=== PATIENT | female | born 1930 | race Caucasian/White ===

== ENCOUNTER 2017-05-18 21:47 | Inpatient (IN) | payer OTHER ==
[~2017-05-18] VITALS: Ht 162.6 cm; Wt 127.9 kg
[~2017-05-18 21:47] MED LIST: AMLODIPINE BESYL5 M1 PO; ASPIRIN EC325 MG PO; CALTRATE 600 +1 EACH PO; CAPTOPRIL100 MG PO; CARBIDOPA-LEVO1 EAC9 PO; CARBIDOPA/LEVOD1 TE1 PO; CIPRO 500MG TA500 MG PO; DILTIAZEM 24HR360 M1 PO; DOCUSATE SODIU100 MG PO; DULOXETINE HCL60 MG PO; ELIQUIS2.5 M1 PO; FERROUS SULFAT325 M2 PO; FOLIC ACID1 M1 PO; FUROSEMIDE20 M1 PO; IRBESARTAN300 M1 PO; LIPITOR80 M1 PO; LORAZEPAM1 M1 PO; LYRICA75 M1 PO; MAGNESIUM OXID400 M1 PO; METFORMIN HCL1000 M1 PO; METOPROLOL TAR100 M1 PO; MIRALAX17 GM PO; MIRAPEX 0.25M0.25 MG PO; MIRTAZAPINE15 M2 PO; OMEPRAZOLE20 M2 PO; PREDNISONE50 M1 PO; PROAIR HFA0.09 MG/Ac INH; ROBITUSSIN W/CO10 ML PO; SENOKOT8.6 MG PO; TYLENOL TAB 32325 MG PO; VITAMIN B-121000 MC3 PO
--- NOTE | 2017-05-18 21:52 | ED DYSPNEA/ASTHMA COMPLAINT ---
History of Present Illness General Chief Complaint: Dyspnea (COPD, CHF, Other) Stated Complaint: BIBA FOR LOW O2 SATS, DIFF BREATHING Source: patient Exam Limitations: no limitations Vital Signs & Intake/Output Vital Signs & Intake/Output Vital Signs Date Time Temp Pulse Resp B/P B/P Pulse O2 O2 Flow FiO2 Mean Ox Delivery Rate 05/19 0054 98.8 110 20 126/68 92 Nasal 3.0L Cannula 05/18 2149 99 22 161/81 91 Nasal 3.0L Cannula ED Intake and Output 05/19 0000 05/18 1200 Intake Total 0 Output Total Balance 0 Intake, Oral 0 Patient 200 lb Weight Weight Estimated Measurement Method Allergies Coded Allergies: codeine (SOB 07/09/15) Reconcile Medications Apixaban (Eliquis) 2.5 MG TABLET 2.5 MG PO BID Atrial Fibrilliation Atorvastatin Calcium (Lipitor) 80 MG TABLET 1 TAB PO DAILY CHOLESTEROL ( Reported) Calcium Carbonate/Vitamin D3 (Caltrate 600 + D Tablet) 600 MG-800 TABLET 1 TAB PO DAILY SUPPLEMENT (Reported) Carbidopa/Levodopa (Carbidopa-Levo ER 50-200 Tab) 50 MG-200 MG TABLET.ER 1 TAB PO DAILY RESTLESS LEGS Cyanocobalamin (Vitamin B-12) 1,000 MCG TABLET 1 TAB PO DAILY VITAMIN SUPPORT (Reported) diltiaZEM HCl (Diltiazem 24HR Cd) 360 MG CAP.ER.24H 1 TAB PO DAILY Heart rate Duloxetine HCl 60 MG CAPSULE.DR 1 CAP PO DAILY PAIN (Reported) Ferrous Sulfate 325 MG (65 MG IRON) TABLET.DR 325 MG PO BID supplement Folic Acid 1 MG TABLET 1 MG PO DAILY supplement Furosemide 20 MG TABLET 1 TAB PO DAILY WATER RETENTION (Reported) Lorazepam 1 MG TABLET 2 TAB PO QPM ANXIETY (Reported) Lorazepam 1 MG TABLET 1 TAB PO DAILY ANXIETY (Reported) Magnesium Oxide 400 MG TABLET 1 TAB PO DAILY SUPPLEMENT (Reported) Metformin HCl 1,000 MG TABLET 1 TAB PO DAILY DIABETES (Reported) Metoprolol Tartrate 100 MG TABLET 2 TAB PO BID HEART Mirtazapine 15 MG TABLET 1 TAB PO QPM SLEEP (Reported) Omeprazole 20 MG CAPSULE.DR 40 MG PO DAILY AC STOMACH HEALTH Prednisone 50 MG TABLET 1 TAB PO DAILY Thrombocytopenia Pregabalin (Lyrica) 75 MG CAPSULE 150 MG PO AT BEDTIME RESTLESS LEGS Triage Nurses Notes Reviewed? yes Onset: Gradual Duration: day(s): Timing: recent history Severity: moderate Activities at Onset: none Prior Episodes/Possible Cause: occasional episodes Associated Symptoms: cough, DYSPNEA, HYPOXIA HPI: 86 yo woman with diabetes, chf, chronic lower extremity edema, from ecf, presents with elevated wbc count of 24,000 and hypoxia to 85% on room air. She notes a cough, "but the phlegm is really deep." She notes no chest pain, abdominal pain, lower extremity pain. She is otherwise well. Past History Travel History Traveled to [place] past 21 day No Medical History Any Pertinent Medical History? see below for history Neurological: restless leg syndrome, DIABETIC NEUROPATHY EENT: NONE Cardiovascular: hypertension, hyperlipidemia, myocardial infarction, CARDIAC STENTS Respiratory: NONE Gastrointestinal: constipation Hepatic: NONE Renal: NONE Musculoskeletal: falls, BILAT SHOULDER REPAIR LT KNEE REPAIR Psychiatric: anxiety Endocrine: diabetes Blood Disorders: thrombocytopenia Cancer(s): NONE GRAIN SAMPLER/Reproductive: NONE Other Medical Hx: restless leg syndrome History of MRSA: Yes History of VRE: No History of CDIFF: No Surgical History Surgical History: L KNEE BOTH SHOULDERS R GREAT TOE AMP Psychosocial History Who do you live with Patient/Self Services at Home None What is your primary language [place] Family History Family History, If Any: Relation not specified for: *No pertinent family history Hx Contributory? No Review of Systems Review of Systems Constitutional: Reports: no symptoms. EENTM: Reports: no symptoms. Respiratory: Reports: no symptoms. Cardiovascular: Reports: no symptoms. GI: Reports: no symptoms. Genitourinary: Reports: no symptoms. Musculoskeletal: Reports: no symptoms. Skin: Reports: no symptoms. Neurological/Psychological: Reports: no symptoms. Hematologic/Endocrine: Reports: no symptoms. Immunologic/Allergic: Reports: no symptoms. All Other Systems: Reviewed and Negative Physical Exam Physical Exam General Appearance: well developed/nourished, mild distress Head: atraumatic, normal appearance Eyes: Bilateral: normal appearance. Ears, Nose, Throat: dry mucosa Neck: normal inspection, supple, full range of motion Respiratory: dimished breath sounds at baseline Cardiovascular: regular rate/rhythm Gastrointestinal: normal bowel sounds, soft, non-tender, no organomegaly Extremities: chronic venous stasis changes, left leg with skin breakdown, ulcerations at left heel. Also with superimposed erythema. Very warm to touch to the knee. right ankle hot to touch, erythmatous, tender to mid calf, w/ skin breakdown and ulcerations on right ankle. Neurologic/Psych: no motor/sensory deficits, awake, alert, oriented x 3 Skin: intact, normal color, warm/dry Core Measures ACS in differential dx? No CVA/TIA Diagnosis No Sepsis Present: No Sepsis Focused Exam Completed? No Progress Differential Diagnosis: asthma, bronchitis, CHF, COPD, pneumonia Plan of Care: Orders Procedure Date/time Status Nothing by Mouth 05/19 B Active Patient Data 05/19 0140 Active Saline Lock 05/19 36 Active Misc Message 05/19 36 Active ED Holding Orders 05/19 36 Active Admit to inpatient 05/19 36 Active Vital Signs 05/19 36 Active Code Status 05/19 36 Active LACTIC ACID 05/18 2202 Complete PARTIAL THROMBOPLASTIN TIME 05/18 2158 Complete PROTHROMBIN TIME 05/18 2158 Complete D-DIMER 05/18 2158 Complete BLOOD CULTURE 05/18 2154 Active ARTERIAL BLOOD GAS (GEN) 05/18 2150 Complete BLOOD CULTURE 05/18 2150 Active TROPONIN LEVEL 05/18 2150 Complete LIPASE 05/18 2150 Complete HEPATIC FUNCTION PANEL 05/18 2150 Complete CBC WITHOUT DIFFERENTIAL 05/18 2150 Complete BASIC METABOLIC PANEL 05/18 2150 Complete AMYLASE 05/18 2150 Complete EKG 05/18 2150 Active Laboratory Tests 05/19/17 0103: Lactic Acid Cancelled 05/18/17 2250: Anion Gap 9, Estimated GFR 39 L, BUN/Creatinine Ratio 42.3 H, Glucose 143 H, Calcium 8.3 L, Total Bilirubin 0.8, Direct Bilirubin 0.3, AST 13 L, ALT 47, Alkaline Phosphatase 48, Troponin I 0.10, Total Protein 4.8 L, Albumin 2.6 L, Amylase < 30 L, Lipase 40, PT 12.1, INR 1.15, APTT 25, D-Dimer High Sensitivty 303 H 05/18/17 2219: Lactic Acid 1.2, CBC w Diff NO MAN DIFF REQ, RBC 4.46, MCV 93.6, MCH 30.0, RDW 21.3 H, MPV 8.8, Gran % 94.6 H, Lymphocytes % 2.2 L, Monocytes % 3.0, Eosinophils % 0.1, Basophils % 0.1, Absolute Granulocytes 10.4 H, Absolute Lymphocytes 0.2 L, Absolute Monocytes 0.3, Absolute Eosinophils 0, Absolute Basophils 0, PUBS MCHC 32.0 L 05/18/172209: pH 7.45, pCO2 37, pO2 54 L, HCO3 25, ABG O2 Sat (Measured) 86.0 L, P-50 (Temp Corrected) N, Carboxyhemoglobin 1.4 L, O2 Concentration % R/A, Temperature 99.4 , Phlebotomy Draw Site LEFT RADIAL Microbiology 05/18 2302 BLOOD: Blood Culture - RECD 05/18 2249 BLOOD: Blood Culture - RECD Diagnostic Imaging: Viewed by Me: Radiology Read. Discussed w/RAD: Radiology Read. CXR Impression: PATIENT: SOLEDAD WILLSON PRESENT AGE: 86 PATIENT ACCOUNT NO: [id number] : 31 LOCATION: [facility] ORDERING PHYSICIAN: Jackson Tong MD SERVICE DATE: 05/18/17 EXAM TYPE: RAD - XRY- PORTABLE CHEST XRAY EXAMINATION: XR PORTABLE CHEST CLINICAL INFORMATION: Dyspnea COMPARISON: 04/11/2017 TECHNIQUE: Portable frontal view of the chest was obtained. FINDINGS: Cardiac leads overlie the chest. Lung volumes are low. Small to moderate left-sided pleural effusion with associated airspace opacity. Likely a small right pleural effusion. Central vascular prominence. No pneumothorax. The cardiomediastinal silhouette is unchanged. IMPRESSION: Lung volumes are low. Small moderate left pleural effusion with small right pleural effusion. Associated airspace opacity could be associated with fluid overload as there is central vascular prominence. Pneumonia difficult to exclude. DICTATED BY: Randolph Kaye MD DATE/TIME DICTATED:05/18/172330 PHYSICIAN SURGEON: SHARIF DATE/TIME TRANSCRIBED:05/18/172330 CONFIDENTIAL, DO NOT COPY WITHOUT APPROPRIATE AUTHORIZATION. <Electronically signed in Other Vendor System> SIGNED BY: Randolph Kaye MD 05/18/17 7909 Initial ED EKG: afib... computer reads "leads reversed"... per tech, leads are appropriate... ekg most consistent with afib. ... no significant change from prior Departure Departure Disposition: STILL A PATIENT Condition: Stable Clinical Impression Primary Impression: Pneumonia Secondary Impressions: Cellulitis, Sepsis, Vasculopathy Referrals: July Crisostomo MD (PCP/Family) Departure Forms: Customer Survey General Discharge Information Comments 05/18/17, 23:00... discussed with vascular to discuss concern for femoral artery clot from 05/15/17 ... given that her leg is warm to touch, this is likely NOT an acute clot and does not require acute intervention. he will see patient in the AM. Critical Care Note Critical Care Note Critical Care Time: 30-74 min
[2017-05-18 22:30] LABS: ABSOLUTE BASOPHIL COUNT 0 /CUMM (0.0-0.2); ABSOLUTE EOSINOPHIL COUNT 0 /CUMM (0.0-0.7); ABSOLUTE GRANULOCYTE CT 10.4 /CUMM (1.4-6.5); ABSOLUTE LYMPH COUNT 0.2 /CUMM (1.2-3.4); ABSOLUTE MONOCYTE COUNT 0.3 /CUMM (0.10-0.60); BASOPHIL % 0.1 % (0.0-2.0); EOSINOPHIL % 0.1 % (0-5); GRANULOCYTE % 94.6 % (42.2-75.2); HEMATOCRIT 41.8 % (37-47); MEAN CORPUSCULAR VOLUME 93.6 FL (81.0-99.0); MEAN PLATELET VOLUME 8.8 FL (7.4-10.4); RBC DISTRIBUTION WIDTH 21.3 % (11.5-14.5); RED BLOOD CELL CT 4.46 /CUMM (4.20-5.40)
[2017-05-18 23:10] LABS: PLATELET COUNT 44 /CUMM (130-400)
--- NOTE | 2017-05-18 23:35 | RADIOLOGY REPORT ---
EXAMINATION: XR PORTABLE CHEST CLINICAL INFORMATION: Dyspnea COMPARISON: 04/11/2017 TECHNIQUE: Portable frontal view of the chest was obtained. FINDINGS: Cardiac leads overlie the chest. Lung volumes are low. Small to moderate left-sided pleural effusion with associated airspace opacity. Likely a small right pleural effusion. Central vascular prominence. No pneumothorax. The cardiomediastinal silhouette is unchanged. IMPRESSION: Lung volumes are low. Small moderate left pleural effusion with small right pleural effusion. Associated airspace opacity could be associated with fluid overload as there is central vascular prominence. Pneumonia difficult to exclude.
[2017-05-18 23:53] LABS: PT 12.1 SEC (9.4-12.5); PTT 25 SEC (25-37)
--- NOTE | 2017-05-19 01:13 | History & Physical ---
Akin RAMOS,[facility] 05/19/17 0112: General Information and HPI MD Statement: I have seen and personally examined SOLEDAD WILLSON and documented this H&P. The patient is a 86 year old F who presented with a patient stated chief complaint of [low O2 sats, leukocytosis]. Source of Information: patient, [facility] History of Present Illness: Patient is 86-year-old woman with past medical history of hypertension, hyperlipidemia, ID s/p PCI with stent, diabetes mellitus, and restless leg syndrome, history of atrial fibrillation not on anticoagulation due to severe thrombocytopenia was sent in from [facility] care facility for hypoxia, leukocytosis and productive cough. Patient states she had no cough with sputum production, clear, that started 4 days ago. He denies any shortness of breath, chest pain, fever/chills, orthopnea, palpitations, sick contacts, recent travel, new onset rash , nausea, vomiting, abdominal pain or any urinary symptoms. Her only other complaint is right shoulder pain after she slipped from her couch last night. Patient was oriented 2 at the time of history taking, for a CF facility was called to confirm the history. Mentioned recent onset cough with low O2 sats with no improvement after one neb treatment. Labs were done this morning which showed white blood cell count of 24,300 so the patient was sent in for further evaluation. Allergies/Medications Allergies: Coded Allergies: codeine (SOB 07/09/15) Home Med list Apixaban (Eliquis) 2.5 MG TABLET 2.5 MG PO BID Atrial Fibrilliation Atorvastatin Calcium (Lipitor) 80 MG TABLET 1 TAB PO DAILY CHOLESTEROL ( Reported) Calcium Carbonate/Vitamin D3 (Caltrate 600 + D Tablet) 600 MG-800 TABLET 1 TAB PO DAILY SUPPLEMENT (Reported) Carbidopa/Levodopa (Carbidopa-Levo ER 50-200 Tab) 50 MG-200 MG TABLET.ER 1 TAB PO DAILY RESTLESS LEGS Cyanocobalamin (Vitamin B-12) 1,000 MCG TABLET 1 TAB PO DAILY VITAMIN SUPPORT (Reported) diltiaZEM HCl (Diltiazem 24HR Cd) 360 MG CAP.ER.24H 1 TAB PO DAILY Heart rate Duloxetine HCl 60 MG CAPSULE.DR 1 CAP PO DAILY PAIN (Reported) Ferrous Sulfate 325 MG (65 MG IRON) TABLET.DR 325 MG PO BID supplement Folic Acid 1 MG TABLET 1 MG PO DAILY supplement Furosemide 20 MG TABLET 1 TAB PO DAILY WATER RETENTION (Reported) Lorazepam 1 MG TABLET 2 TAB PO QPM ANXIETY (Reported) Lorazepam 1 MG TABLET 1 TAB PO DAILY ANXIETY (Reported) Magnesium Oxide 400 MG TABLET 1 TAB PO DAILY SUPPLEMENT (Reported) Metformin HCl 1,000 MG TABLET 1 TAB PO DAILY DIABETES (Reported) Metoprolol Tartrate 100 MG TABLET 2 TAB PO BID HEART Mirtazapine 15 MG TABLET 1 TAB PO QPM SLEEP (Reported) Omeprazole 20 MG CAPSULE.DR 40 MG PO DAILY AC STOMACH HEALTH Prednisone 50 MG TABLET 1 TAB PO DAILY Thrombocytopenia Pregabalin (Lyrica) 75 MG CAPSULE 150 MG PO AT BEDTIME RESTLESS LEGS Past History Travel History Traveled to [place] past 21 day No Medical History Neurological: restless leg syndrome, DIABETIC NEUROPATHY EENT: NONE Cardiovascular: hypertension, hyperlipidemia, myocardial infarction, CARDIAC STENTS Respiratory: NONE Gastrointestinal: constipation Hepatic: NONE Renal: NONE Musculoskeletal: falls, BILAT SHOULDER REPAIR LT KNEE REPAIR Psychiatric: anxiety Endocrine: diabetes Blood Disorders: thrombocytopenia Cancer(s): NONE RESEARCH AND EVALUATION ANALYST/Reproductive: NONE Other Medical Hx: restless leg syndrome History of MRSA: Yes History of VRE: No History of CDIFF: No Surgical History Surgical History: L KNEE BOTH SHOULDERS R GREAT TOE AMP, BILATERAL SHOULDER SURGERY Past Family/Social History Family History Relations & Conditions if any Relation not specified for: *No pertinent family history Psychosocial History Where do you live? Extended Care Facility Services at Home: None Smoking Status: Former Smoker ETOH Use: occasional use Illicit Drug Use: denies illicit drug use Functional Ability ADLs Independent: dressing, eating, toileting, bathing. Ambulation: independent IADLs Independent: shopping, housework, finances, food prep, telephone, transportation , medication admin. Review of Systems Review of Systems Constitutional: Reports: no symptoms. Cardiovascular: Denies: chest pain, orthopena, palpitations. Respiratory: Reports: cough, sputum production. Exam & Diagnostic Data Last 24 Hrs of Vital Signs/I&O Vital Signs Date Time Temp Pulse Resp B/P B/P Pulse O2 O2 Flow FiO2 Mean Ox Delivery Rate 05/19 0707 98.0 120 22 115/78 05/19 0523 98.0 112 18 130/90 96 Room Air 2.5L 05/19 0256 97.2 112 18 126/68 93 Nasal 3.0L Cannula 05/19 0054 98.8 110 20 126/68 92 Nasal 3.0L Cannula 05/18 2149 99 22 161/81 91 Nasal 3.0L Cannula Intake & Output 05/19 0800 05/19 0000 05/18 1600 Intake Total 0 Output Total Balance 0 Intake, Oral 0 Patient 200 lb Weight Weight Estimated Measurement Method Physical Exam General Appearance Alert, Cooperative, No Acute Distress, ORIENTED TO PLACE AND PERSON Cardiovascular Normal S1, Normal S2, IRREGULAR Lungs Clear to Auscultation Abdomen Normal Bowel Sounds, Soft, No Tenderness Extremities No Clubbing, Normal Pulses, Chronic LE Venous Stasis changes with superimposed erythema, dry skin with breakdown without any bleeding or pulurent discharge, +2 edema Last 24 Hrs of Labs/Silvano: Laboratory Tests 05/19/17 0600: Troponin I Cancelled 05/19/17 0554: Lactic Acid Cancelled 05/19/17 0554: Estimated GFR 0 L 05/19/17 0554: Anion Gap 10, Estimated GFR Pending, BUN/Creatinine Ratio 43.1 H, Troponin I Pending, Gys-M-Pcrxlztaoql Pept Pending, CBC w Diff MAN DIFF ORDERED, RBC 3.94 L, MCV 93.1, MCH 29.7, RDW 21.6 H, MPV 10.1, Gran % 91.0 H, Lymphocytes % 3.5 L, Monocytes % 5.3, Eosinophils % 0, Basophils % 0.2, Absolute Granulocytes 12.4 H, Segmented Neutrophils 86 H, Absolute Lymphocytes 0.5 L, Lymphocytes 3 L, Monocytes 11 H, Absolute Monocytes 0.7 H, Absolute Eosinophils 0, Absolute Basophils 0, Platelet Estimate DECREASED, Polychromasia 1+, Hypochromic- Microcytic 1+, Poikilocytosis 1+, Ovalocytes 1+, PUBS MCHC 32.0 L, Fld Total RBCs Counted 100 05/19/17 0526: Urinalysis LIGHT H, Urine Color YEL, Urine Clarity CLEAR, Urine pH 6.0, Ur Specific Dixie 1.020, Urine Protein 30 H, Urine Ketones NEG, Urine Nitrite NEG, Urine Bilirubin NEG, Urine Urobilinogen 0.2, Ur Leukocyte Esterase NEG, Ur Microscopic SEDIMENT EXAMINED, Urine RBC 25-50 H, Urine WBC 1-3 H, Ur Epithelial Cells FEW, Hyaline Casts 3-5 H, Urine Mucus FEW, Urine Hemoglobin MOD H, Urine Glucose NEG 05/19/17 0254: Lactic Acid Cancelled 05/19/17 0103: Lactic Acid Cancelled 05/18/17 2250: Anion Gap 9, Estimated GFR 39 L, BUN/Creatinine Ratio 42.3 H, Glucose 143 H, Calcium 8.3 L, Magnesium 2.2, Total Bilirubin 0.8, Direct Bilirubin 0.3, AST 13 L, ALT 47, Alkaline Phosphatase 48, Troponin I 0.10, Zqu-J-Bavwubsvive Pept 9830 H, Total Protein 4.8 L, Albumin 2.6 L, Amylase < 30 L, Lipase 40, PT 12.1, INR 1.15, APTT 25, D-Dimer High Sensitivty 303 H 05/18/17 2219: Lactic Acid 1.2, CBC w Diff NO MAN DIFF REQ, RBC 4.46, MCV 93.6, MCH 30.0, RDW 21.3 H, MPV 8.8, Gran % 94.6 H, Lymphocytes % 2.2 L, Monocytes % 3.0, Eosinophils % 0.1, Basophils % 0.1, Absolute Granulocytes 10.4 H, Absolute Lymphocytes 0.2 L, Absolute Monocytes 0.3, Absolute Eosinophils 0, Absolute Basophils 0, PUBS MCHC 32.0 L 05/18/17 221: pH 7.45, pCO2 37, pO2 54 L, HCO3 25, ABG O2 Sat (Measured) 86.0 L, P-50 (Temp Corrected) N, Carboxyhemoglobin 1.4 L, O2 Concentration % R/A, Temperature 99.4 , Phlebotomy Draw Site LEFT RADIAL Microbiology 05/19 525 URINE ROUT: Urine Culture - RECD 05/18 2302 BLOOD: Blood Culture - RECD 05/18 2249 BLOOD: Blood Culture - RECD Diagnostic Data CXR Results Small moderate left pleural effusion with small right pleural effusion. Associated airspace opacity could be associated with fluid overload as there is central vascular prominence. Pneumonia difficult to exclude. Assessment/Plan Assessment: Patient is 86-year-old woman with past medical history of hypertension, hyperlipidemia, ID s/p PCI with stent, diabetes mellitus, and restless leg syndrome, history of atrial fibrillation not on anticoagulation due to severe thrombocytopenia was sent in from extended care facility for hypoxia, leukocytosis and productive cough. A/P; 1. Acute hypoxic respiratory failure likely secondary to CHF and possible pneumonia. (chest x-ray showing moderate left pleural effusion with small white pasty which could be fluid overload or pneumonia). History of systolic CHF with ejection fraction of 45-50% on recent echo. - We will admit the patient to telemetry floor - We'll start the patient on IV Lasix. (Stopped recently for unknown reason) - Cardiology consult. - Initial troponins negative, Repeat troponins and EKG to rule out ACS - Start the patient on IV vancomycin and ceftaz for healthcare associated pneumonia. - Supplemental oxygen as needed - Sputum culture - Follow up blood cultures - Consider CTA chest if patient remains hypoxemic. Patient is high risk for PE given her tachypnea, tachycardia, low activity level and has been off anticoagulation(because of thrombocytopenia). 2. Left lower leg cellulitis with chronic wounds - IV vancomycin and ceftaz - Wound consult - Vascular surgery consult - Keep the legs elevated 3. Thrombocytopenia - Platelet count is 44(baseline) - Continue to hold Eliquis - Avoid any antiplatelets - Hematology consult 4. History of atrial fibrillation; - Continue diltiazem and metoprolol. - Continue to hold Eliquis 5. Arterial Ultrasound finding of possible occlusion of the distal femoral artery(May); - Vascular surgery was called, patient does not need any surgical intervention at this time. 5. Other Chronic medical conditions; - Continue home medications. DVT prophylaxis; Alps only(no pharmacological DVT prophylaxis because of thrombocytopenia) Patient is full code As Ranked By This Provider Problem List: 1. Cellulitis 2. Pneumonia 3. CHF (congestive heart failure) Core Measures/Misc (01/19) Acute Coronary Syndrome ACS Diagnosis: No Congestive Heart Failure Congestive Heart Failure Diagnosis Yes Last Known EF % 45 No ADAM/ARB d/t Medical Contraindication (hyperkalemia) Cerebrovascular Accident CVA/TIA Diagnosis: No VTE (View Protocol) VTE Risk Factors Age>40 No Mechanical VTE Prophylaxis d/t N/A MechProphylax Ordered No VTE Pharm Prophylaxis d/t Platelets below ref range Sepsis (View protocol) Sepsis Present: Adelina Handy 05/19/17 0608: Resident Review Statement Resident Statement: examined this patient, discussed with property management intern Other Findings: Patient is 86-year-old woman with past medical history of hypertension, hyperlipidemia, ID s/p PCI with stent, diabetes mellitus, and restless leg syndrome, history of atrial fibrillation not on anticoagulation due to severe thrombocytopenia was sent in from extended care facility with the concerns of hypoxia and productive cough. Patient was oriented 1 at the time of evaluation for most of the history was obtained from the [facility] staff .As per staff patient has been coughing for the last couple of days w/o any fever /chills.Yesterday she started having trouble breathing along with wheezing ,desaturated to 86% on room air. she was given nebulizer treatment along with IV Solu-Medrol at the facility but her sats didn' t improve and was sent in to the ER with the concerns of hypoxia. She recently had a lab work done that showed worsening creatinine and Lasix was stopped on 05/12/16. Since then she gained almost 3 pounds. No complaint of nausea vomiting diarrhea. No recent infections. In the ED patient was found to be in acute hypoxic ,was put on 3 L nasal cannula. Patient has a history of chronic lower extremity wounds, due to underlying peripheral vascular disease, recently getting worse, patient recently had a Doppler venous ultrasound done at a facility that ruled out any underlying DVT , also had an arterial Doppler ultrasound was done that showed incidental finding of right distal femoral artery occlusion. Patient was recently discharged from [facility] after being treated for atrial fibrillation and immune thrombocytopenia, elliquis was stopped. On examination: General Appearance:alert oriented 1, not in acute distress Skin: Grossly normal HEENT: PERRLA Neck: Supple, No JVD Cardiovascular: Regular Rate, Normal S1, Normal S2. Lungs: lungs clear to exam b/l. Abdominal exam : Denies abdominal tenderness without any rebound, positive bowel sounds. Neurological: Grossly intact. Extremities: Bilateral lower extremity swelling with redness with open weeping wounds more on the left leg as compared to the right. Pertinent labs on admission leukocytosis of 11, creatinine) baseline 1.3, lactic acid levels, ProBNP pending positive troponin negative Chest x-ray Small moderate left pleural effusion with small right pleural effusion. Associated airspace opacity could be associated with fluid overload as there is central vascular prominence. Pneumonia difficult to exclude. Problem list Acute hypoxic respiratory failure due to a likely CHF exacerbation along with pneumonia Worsening lower extremity swelling with redness(left more than right) History of atrial ablation not on any anticoagulation History of restless leg syndrome History of immune thrombocytopenia PLAN Acute hypoxic respiratory failure due to a likely CHF exacerbation along with pneumonia: * Admit the patient to telemetry floor. * We'll start her on IV Lasix 20 mg daily. * Continue IV ceftazidime and vancomycin for underlying health associated pneumonia. * Obtain cardiology consult. * Transient troponins and EKG. * Consider CT chest for further investigation. Patient is at high risk of PE as she is hypoxic a cardiac and now off elliquis, but CTA cannot be done at this time due to elevated creatinine. Also due to her severe thrombocytopenia she cannot get any anticoagulation. Worsening lower extremity swelling with redness(left more than right)-likely cellulitis along with incidental finding of right distal femoral artery occlusion * Continue broad-spectrum. * Patient has been evaluated by vascular surgery, recommended no acute surgical interventions for now. History of atrial fibrillation not on any anticoagulation * Continue Cardizem and metoprolol. History of restless leg syndrome * continue Lyrica,recently stopped Sinemet History of immune thrombocytopenia * Prednisone dose has been recently increased toto 150 Mg Daily Confirmed from the ECF staff. 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 Her lung exam revealed bilateral rhonchi with wheeze, she received albuterol nebs and was sent to ER. She had blood work done at facility that showed leukocytosis of 24.3 and Platelet of 24. Of note, patient has been off lasix due to BUN/creat abnormalities and had a 3 lb weight gain over past 2 days. She is also off the eliquis due to low platelets. Patient does not offer any complaints. She has chronic lower extremity wounds and skin changes of PVD which seem to have gotten worse. LE doppler done on May 13 was negative for DVT. Arterial doppler done on May 15 was concerning for a possible occlusion of distal femoral artery on right. Vitals: afebrile, HR 90-110's, BP 126/68, sats 92% on 3L. Chest bibasilar crackles+. LE: Bilateral LE edema L>R with open wounds, left leg more warm, erythematous than right, tenderness+. Peripheral pulses are well felt. Labs: WBC 11, Plt 44, K 5.4, BUN 55, creat 1.3 (baseline), trop neg, proBNP 9830 , ABG 7.45/37/54/25. CXR: low lung volumes, small moderate left pleural effusion with small right pleural effusion. Associated airspace opacity could be associated with fluid overload as there is central vascular prominence. Echo (2017): EF 45-50%, mild global hypokinesis, pulmonary hypertension. EKG: not done correctly, lead placement problem asked to repeat one. Assessment and plan: 1. Acute hypoxemic respiratory failure 2. Acute on chronic systolic CHF, bilateral pleural effusions 3. Healthcare associated pneumonia 4. Bilateral lower extremity swelling, multiple ulcers, PVD, chronic venous stasis, possible LLE cellulitis 5. CKD stage 3 6. 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 If patient remains afebrile, would consider narrowing antibiotics. - Obtain ID consult - Cannot rule out PE, unable to do CTA due to CKD and cannot heparinize due to ITP. Consider VQ scan - Vascular evaluated patient in ER finding on arterial doppler (possible occlusion of distal femoral A) not concerning for acute vascular intervention. Please note, patient had arterial doppler at [facility] (Apr 13) that was normal. - Continue prednisone if hypotensive give stress dose steroids - Wound consult xeroform deressing. - Hematology consult (as follow up for her ITP) - Continue lipitor, diltiazem, metoprolol, levemir, novolog, omeprazole, ativan, mirtazapine. DVT ppx Alps (may not be able to apply), no heparin due to low platelets. Full code.
--- NOTE | 2017-05-19 01:32 | Cons- Vascular Surgery ---
Amparo Barroso 05/19/17 0056: General Information and HPI Consulting Request Date of Consult: 05/19/17 Requested By: Dr. Bridgette Tong Reason for Consult: Asymptomatic incidental finding of R SFA occlusion Source of Information: old records Exam Limitations: poor historian History of Present Illness: Janet is an 86 year old female who presents to ER today with a chief complaint of hypoxia and difficulty breathing. Her O2 saturation upon arrival was 85%. Her PMH is significant for afib for which she takes eliquis 2.5 bid. Additionally her pmh includes DM, Restless Legs, GERD, anxiety and thrombocytopenia. She has had osteomyelitis and podiatric surgical procedures in the past with Dr. Darci Quinones. She underwent a bilateral arterial doppler to her lower extremities in april of 2017. The report is as follows: PATIENT: JANET WILLSON PRESENT AGE: 86 PATIENT ACCOUNT NO: [id number] : 31 LOCATION: [facility] ORDERING PHYSICIAN: Denisse Salmeron MD SERVICE DATE: 04/13/17 EXAM TYPE: US - US-BILAT LOW EXTR ARTERIAL DOP EXAMINATION: US LOWER EXTREMITY ARTERIAL DOPPLER, BILATERAL CLINICAL INFORMATION: Leg pain. Evaluate for peripheral vascular disease. COMPARISON: None TECHNIQUE: Doppler, color and grayscale evaluation of the arteries of the bilateral lower extremities. Exam is limited as the patient had trouble holding still. Exam was also performed portably. FINDINGS: Right: the right common femoral artery is patent. There is minimal calcified plaque. There is normal triphasic waveform and peak systolic velocity. The visualized right proximal profunda appears patent with a biphasic waveform. The right is patent. There is evidence of mild diffuse atherosclerotic disease with diminished peak systolic velocities in the superficial femoral artery ranging from 51, 73 and 83 cm/s in the proximal, mid and distal superficial femoral artery. The right popliteal artery is not optimally visualized. The right upper popliteal artery appears patent with normal peak systolic velocity of 101 cm/s and biphasic waveform. The right distal superficial femoral artery is not well visualized. The right peroneal and posterior tibial arteries are not visualized. The right anterior tibial artery is patent and demonstrates a biphasic waveform and normal peak systolic velocity. The right dorsalis pedis artery is patent. Left: The left common femoral artery is patent. This demonstrates normal peak systolic velocity and normal triphasic waveform. The left proximal profunda appears patent. Left proximal and mid superficial femoral artery are patent with normal peak systolic velocities and triphasic waveform. There is decreased peak systolic velocity in the left distal SFA measuring 45 cm/s and mono to biphasic waveform suggestive of left distal superficial femoral artery disease. The left popliteal artery is not well visualized. The left distal popliteal artery appears patent. This demonstrates normal systolic velocity and biphasic waveform. The left peroneal and posterior tibial arteries are not visualized. The left anterior tibial artery is patent. The left dorsalis pedis artery is patent. IMPRESSION: Right: Normal right common femoral artery. Mild diffuse right SFA disease. Limited visualization of the popliteal artery that appears patent. Patent right anterior tibial artery and dorsalis pedis artery. Right posterior tibial and peroneal artery is not visualized. Left: Normal left common femoral artery. Moderate distal left SFA disease. Limited visualization of the popliteal artery that appears patent distally. Patent left anterior tibial and dorsalis pedis arteries. Left peroneal and posterior tibial artery is not visualized. 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 <Electronically signed in Other Vendor System> SIGNED BY: Clari Basurto MD. 1527 There was concern on today's visit for an SFA occlusion. Vascular surgery was called to evaluate. Allergies/Medications Allergies: Coded Allergies: codeine (SOB 07/09/15) Home Med List: Apixaban (Eliquis) 2.5 MG TABLET 2.5 MG PO BID Atrial Fibrilliation Atorvastatin Calcium (Lipitor) 80 MG TABLET 1 TAB PO DAILY CHOLESTEROL ( Reported) Calcium Carbonate/Vitamin D3 (Caltrate 600 + D Tablet) 600 MG-800 TABLET 1 TAB PO DAILY SUPPLEMENT (Reported) Carbidopa/Levodopa (Carbidopa-Levo ER 50-200 Tab) 50 MG-200 MG TABLET.ER 1 TAB PO DAILY RESTLESS LEGS Cyanocobalamin (Vitamin B-12) 1,000 MCG TABLET 1 TAB PO DAILY VITAMIN SUPPORT (Reported) diltiaZEM HCl (Diltiazem 24HR Cd) 360 MG CAP.ER.24H 1 TAB PO DAILY Heart rate Duloxetine HCl 60 MG CAPSULE.DR 1 CAP PO DAILY PAIN (Reported) Ferrous Sulfate 325 MG (65 MG IRON) TABLET.DR 325 MG PO BID supplement Folic Acid 1 MG TABLET 1 MG PO DAILY supplement Furosemide 20 MG TABLET 1 TAB PO DAILY WATER RETENTION (Reported) Lorazepam 1 MG TABLET 2 TAB PO QPM ANXIETY (Reported) Lorazepam 1 MG TABLET 1 TAB PO DAILY ANXIETY (Reported) Magnesium Oxide 400 MG TABLET 1 TAB PO DAILY SUPPLEMENT (Reported) Metformin HCl 1,000 MG TABLET 1 TAB PO DAILY DIABETES (Reported) Metoprolol Tartrate 100 MG TABLET 2 TAB PO BID HEART Mirtazapine 15 MG TABLET 1 TAB PO QPM SLEEP (Reported) Omeprazole 20 MG CAPSULE.DR 40 MG PO DAILY AC STOMACH HEALTH Prednisone 50 MG TABLET 1 TAB PO DAILY Thrombocytopenia Pregabalin (Lyrica) 75 MG CAPSULE 150 MG PO AT BEDTIME RESTLESS LEGS Past History Medical History Neurological: restless leg syndrome, DIABETIC NEUROPATHY EENT: NONE Cardiovascular: hypertension, hyperlipidemia, myocardial infarction, CARDIAC STENTS Respiratory: NONE Gastrointestinal: constipation Hepatic: NONE Renal: NONE Musculoskeletal: falls, BILAT SHOULDER REPAIR LT KNEE REPAIR Psychiatric: anxiety Endocrine: diabetes Blood Disorders: thrombocytopenia Cancer(s): NONE 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 Ambulation: independent IADLs Independent: shopping, housework, finances, food prep, telephone, transportation , medication admin. Review of Systems Review of Systems: See H&P. Patient was drowsy during my review of systems. Denied any sort of discomfort at the present moment. Denied any medical history when asked. Exam & Diagnostic Data Vital Signs and I&O Vital Signs Date Time Temp Pulse Resp B/P B/P Pulse O2 O2 Flow FiO2 Mean Ox Delivery Rate 05/19 0054 98.8 110 20 126/68 92 Nasal 3.0L Cannula 05/18 2148 99 22 161/81 91 Nasal 3.0L Cannula Intake & Output 05/19 0800 05/19 0000 05/18 1600 05/18 0800 05/18 0000 05/17 1600 Intake Total 0 Output Total Balance 0 Intake, Oral 0 Patient 200 lb Weight Weight Estimated Measurement Method Physical Exam: General Appearance: well developed/nourished, sleeping, awakens to name but is unable to carry on conversation, states that "I know more about her than she does" Head: atraumatic, normal appearance Eyes: Bilateral: normal appearance. Ears, Nose, Throat: dry mucosa Neck: normal inspection, supple, full range of motion Respiratory: dimished breath sounds at baseline, non-labored respiratory effort Cardiovascular: regular rate/rhythm Gastrointestinal: normal bowel sounds, soft, non-tender Extremities: evidence of chronic venous stasis changes, left leg with skin breakdown, ulcerations at left heel. Also with superimposed erythema. Very warm to touch to the knee. right ankle hot to touch, erythmatous, tender to mid calf, w/ skin breakdown and ulcerations on right ankle. Distal pulses palpable. Left PT/DP 2+, Right PT/DP thready but palpable. Skin warm to bilateral lower extremities Neurologic/Psych: no motor/sensory deficits, awake, alert, oriented x 3 Skin: breakdown noted/ulcerations bilateral lower extremities Assessment/Plan Assessment/Plan This is a 86 year old female with a [facility] signficant for afib, DM, restless leg, GERD, thrombocytopenia and anxiety. She presents to ER today with acute onset of hypoxia and difficulty breathing. SHe has long standing venous stasis disease to bilateral lower extremities with skin breakdown to left heel and multiple ulcerations bilaterally. There is concern of a SFA occlusion right greater than left. Dr. Sahu aware of situation. Patient is asymptomatic of this vascular finding presently. Peripheral pulses are palpable, capillary refill brisk. There is a likely cellulitis to bilateral lower extremities. There is no indication for an urgernt vascular surgical intervention at the present time. Dr. Sahu will further evaluate patient and will continue to see her as an outpatient. Consult Acknowledgment - Thank you for your consult request. Landon Sahu MD 05/19/17 1253: Assessment/Plan Consult Acknowledgment - Thank you for your consult request. Attending MD Review Statement Attending Statement Attending MD Statement: examined this patient Attending Assessment/Plan: She has stasis skin changes of both legs with possible cellulitis. She does not have clinical evidence of critical leg ischemia, and incidental finding of SFA occlusion is irrelevant to her current condition. Treat presumed cellulitis with antibiotics. Compression, moisturizaiton advised for chronic stasis management. Protect legs from trauma. Follow up with as outpatient for surveillance of arteriopathy. Revascularization is not indicated at this time.
[2017-05-19 06:14] LABS: ABSOLUTE BASOPHIL COUNT 0 /CUMM (0.0-0.2); ABSOLUTE EOSINOPHIL COUNT 0 /CUMM (0.0-0.7); ABSOLUTE GRANULOCYTE CT 12.4 /CUMM (1.4-6.5); ABSOLUTE LYMPH COUNT 0.5 /CUMM (1.2-3.4); ABSOLUTE MONOCYTE COUNT 0.7 /CUMM (0.10-0.60); BASOPHIL % 0.2 % (0.0-2.0); EOSINOPHIL % 0 % (0-5); MEAN CORPUSCULAR HGB 29.7 PG (27.0-31.0); MEAN CORPUSCULAR VOLUME 93.1 FL (81.0-99.0); MEAN PLATELET VOLUME 10.1 FL (7.4-10.4); RBC DISTRIBUTION WIDTH 21.6 % (11.5-14.5); RED BLOOD CELL CT 3.94 /CUMM (4.20-5.40); WHITE BLOOD CELL COUNT 13.6 /CUMM (4.8-10.8)
[2017-05-19 06:21] LABS: HEMATOCRIT 36.6 % (37-47)
--- NOTE | 2017-05-19 06:39 | Admission Certification ---
Admission Certification Certification Statement - As attending physician, I certify that at the time of - admission, based on clinical presentation, severity of - symptoms, need for further diagnostic testing and - therapeutic interventions, and risk of adverse outcomes - without in-hospital treatment, in my clinical assessment, - this patient requires an acute hospital stay for a minimum - of two nights or longer. I have also considered psychsocial - factors such as support system, advanced age, financial - issues, cognitive issues, and failed out-patient treatments, - past re-admission history, safety of patient, and lack of - compliance as applicable. Specific rationale supporting this admission is: Acute hypoxic respiratory failure, acute on chronic systolic heart failure, bilateral pleural effusions, healthcare associated pneumonia.
[2017-05-19 06:58] LABS: PLATELET COUNT 23 /CUMM (130-400)
[2017-05-19 10:14] VITALS: BP 159/69
--- NOTE | 2017-05-19 13:35 | Cons- Pulmonary ---
General Information and HPI Consulting Request Date of Consult: 05/19/17 Requested By: Dr. Forde Reason for Consult: dyspnea, tachycardia Source of Information: patient Exam Limitations: no limitations History of Present Illness: Consultation is requested for shortness of breath in the setting of tachycardia. The patient's 86 years old with a history of stenting for coronary disease, hypertension, diabetes, chronic kidney disease creatinine is 1.3 today. She has a history of A. 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 She has been at [facility]. During examination the patient has been found to have tachycardia between 120 and 150 during examination. The platelets are noted to be 24. She also has an elevated white count. Her chest x-ray is with blunting of the left and right costophrenic angles. Echo in 2017 shows an EF 45 %. She is dyspneic but feels better. + edema, no cp but feels palpitations. Somewhat sleepy, but fully oriented and arousable. No n/v/d/c. No CERON. Allergies/Medications Allergies: Coded Allergies: codeine (SOB 07/09/15) Home Med List: Apixaban (Eliquis) 2.5 MG TABLET 2.5 MG PO BID Atrial Fibrilliation Atorvastatin Calcium (Lipitor) 80 MG TABLET 1 TAB PO DAILY CHOLESTEROL ( Reported) Calcium Carbonate/Vitamin D3 (Caltrate 600 + D Tablet) 600 MG-800 TABLET 1 TAB PO DAILY SUPPLEMENT (Reported) Carbidopa/Levodopa (Carbidopa-Levo ER 50-200 Tab) 50 MG-200 MG TABLET.ER 1 TAB PO DAILY RESTLESS LEGS Cyanocobalamin (Vitamin B-12) 1,000 MCG TABLET 1 TAB PO DAILY VITAMIN SUPPORT (Reported) diltiaZEM HCl (Diltiazem 24HR Cd) 360 MG CAP.ER.24H 1 TAB PO DAILY Heart rate Duloxetine HCl 60 MG CAPSULE.DR 1 CAP PO DAILY PAIN (Reported) Ferrous Sulfate 325 MG (65 MG IRON) TABLET.DR 325 MG PO BID supplement Folic Acid 1 MG TABLET 1 MG PO DAILY supplement Furosemide 20 MG TABLET 1 TAB PO DAILY WATER RETENTION (Reported) Lorazepam 1 MG TABLET 2 TAB PO QPM ANXIETY (Reported) Lorazepam 1 MG TABLET 1 TAB PO DAILY ANXIETY (Reported) Magnesium Oxide 400 MG TABLET 1 TAB PO DAILY SUPPLEMENT (Reported) Metformin HCl 1,000 MG TABLET 1 TAB PO DAILY DIABETES (Reported) Metoprolol Tartrate 100 MG TABLET 2 TAB PO BID HEART Mirtazapine 15 MG TABLET 1 TAB PO QPM SLEEP (Reported) Omeprazole 20 MG CAPSULE.DR 40 MG PO DAILY AC STOMACH HEALTH Prednisone 50 MG TABLET 1 TAB PO DAILY Thrombocytopenia Pregabalin (Lyrica) 75 MG CAPSULE 150 MG PO AT BEDTIME RESTLESS LEGS Current Medications: Current Medications Sig/Ric Start time Last Medication Dose Route Stop Time Status Admin Acetaminophen 650 MG Q6P PRN 05/19 0300 AC PO Acetaminophen 1,000 MG Q6P PRN 05/19 0300 AC IV Atorvastatin Calcium 80 MG 1700 05/19 1700 AC PO Ceftazidime 1,000 MG Q12 05/19 1000 AC 05/19 IV 1013 Ceftazidime 0 .STK-MED ONE 05/18 2340 DC .ROUTE Ceftazidime 1,000 MG ONCE ONE 05/18 2215 DC 05/18 IV 05/18 2216 2347 Diltiazem HCl 360 MG DAILY 05/19 1000 AC 05/19 PO 0824 Folic Acid 1 MG DAILY 05/19 1000 AC 05/19 PO 1019 Furosemide 20 MG DAILY 05/19 1000 AC 05/19 IV 1013 Furosemide 0 .STK-MED ONE 05/19 0543 DC IV Furosemide 20 MG ONCE ONE 05/19 0330 DC 05/19 IV 05/19 0331 0548 Lorazepam 0 .STK-MED ONE 05/19 1004 DC PO Lorazepam 1 MG DAILY 05/19 1000 AC 05/19 PO 1019 Metoprolol Tartrate 0 .STK-MED ONE 05/19 1141 DC IV Metoprolol Tartrate 5 MG ONCE ONE 05/19 1115 DC 05/19 IV 05/19 1116 1138 Metoprolol Tartrate 200 MG BID 05/19 1000 AC 05/19 PO 1019 Mirtazapine 15 MG QPM 05/19 2200 AC PO Omeprazole 40 MG DAILY AC 05/19 0700 AC 05/19 PO 0604 Omeprazole 0 .STK-MED ONE 05/19 0543 DC PO Prednisone 50 MG DAILY 05/19 1000 AC 05/19 PO 1019 Pregabalin 150 MG AT BEDTIME 05/19 2200 AC PO Sodium Chloride 1,000 ML Q13H 05/19 0300 DC IV Vancomycin HCl 1,000 MG DAILY 05/19 1000 AC 05/19 Sodium Chloride 250 ML IV 1013 Vancomycin HCl 1,000 MG ONCE ONE 05/18 2215 DC 05/18 Sodium Chloride 250 ML IV 05/18 2314 2345 Review of Systems Comments 18 point review of systems was performed and reviewed. Please see pertinent positives and pertinent negatives in the HPI. Otherwise ROS is negative. 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 Extended Care Facility Services at Home: None Smoking Status: Former Smoker ETOH Use: occasional use Illicit Drug Use: denies illicit drug use Functional Ability ADLs Independent: dressing, eating, toileting, bathing. Ambulation: independent IADLs Independent: shopping, housework, finances, food prep, telephone, transportation , medication admin. Exam & Diagnostic Data Last 24 Hrs of Vital Signs/I&O Vital Signs Date Time Temp Pulse Resp B/P B/P Pulse O2 O2 Flow FiO2 Mean Ox Delivery Rate 05/19 1138 99.0 133 20 125/69 05/19 1047 99.0 124 20 125/69 96 Nasal 2.0L Cannula 05/19 1019 98.4 122 18 159/69 05/19 1014 98.4 122 18 159/69 98 Nasal 2.0L Cannula 05/19 1013 98.6 122 18 159/69 98 Nasal 2.0L Cannula 05/19 0855 96 Nasal 2.0L Cannula 05/19 0850 96 Nasal 2.0L Cannula 05/19 0707 98.0 120 22 115/78 05/19 0523 98.0 112 18 130/90 96 Room Air 2.5L 05/19 0256 97.2 112 18 126/68 93 Nasal 3.0L Cannula 05/19 0054 98.8 110 20 126/68 92 Nasal 3.0L Cannula 05/18 2149 99 22 161/81 91 Nasal 3.0L Cannula Intake & Output 05/19 1600 05/19 0800 05/19 0000 Intake Total 0 Output Total Balance 0 Intake, Oral 0 Patient 200 lb 200 lb Weight Weight Reported by Patient Estimated Measurement Method Physical Exam Other Physical Findings: Generally - Awake, alert and comfortable without distress Head and neck - normocephalic, atraumatic, EOMI grossly intact Cardiovascular - S1, S2, irregular Lungs - bilateral rhonchi, diminished at bases Abdomen - Bowel sounds positive, soft, non-tender Extremities - edematous Last 48 Hrs of Labs/Silvano: Laboratory Tests 05/19/17 1047: Troponin I 0.14 *H 05/19/17 0600: Troponin I Cancelled 05/19/17 0554: Lactic Acid Cancelled 05/19/17 0554: Estimated GFR Cancelled 05/19/17 0554: Estimated GFR Cancelled 05/19/17 0554: Anion Gap 10, Estimated GFR 39 L, BUN/Creatinine Ratio 43.1 H, Troponin I 0.12 *H, [id number] Pept 9630 H, CBC w Diff MAN DIFF ORDERED, RBC 3.94 L, MCV 93.1, MCH 29.7, RDW 21.6 H, MPV 10.1, Gran % 91.0 H, Lymphocytes % 3.5 L, Monocytes % 5.3, Eosinophils % 0, Basophils % 0.2, Absolute Granulocytes 12.4 H , Segmented Neutrophils 86 H, Absolute Lymphocytes 0.5 L, Lymphocytes 3 L, Monocytes 11 H, Absolute Monocytes 0.7 H, Absolute Eosinophils 0, Absolute Basophils 0, Platelet Estimate DECREASED, Polychromasia 1+, Hypochromic- Microcytic 1+, Poikilocytosis 1+, Ovalocytes 1+, PUBS MCHC 32.0 L, Fld Total RBCs Counted 100 05/19/17 0526: Urinalysis LIGHT H, Urine Color YEL, Urine Clarity CLEAR, Urine pH 6.0, Ur Specific [place] 1.020, Urine Protein 30 H, Urine Ketones NEG, Urine Nitrite NEG, Urine Bilirubin NEG, Urine Urobilinogen 0.2, Ur Leukocyte Esterase NEG, Ur Microscopic SEDIMENT EXAMINED, Urine RBC 25-50 H, Urine WBC 1-3 H, Ur Epithelial Cells FEW, Hyaline Casts 3-5 H, Urine Mucus FEW, Urine Hemoglobin MOD H, Urine Glucose NEG 05/19/17 0254: Lactic Acid Cancelled 05/19/17 0103: Lactic Acid Cancelled 05/18/17 2250: Anion Gap 9, Estimated GFR 39 L, BUN/Creatinine Ratio 42.3 H, Glucose 143 H, Calcium 8.3 L, Magnesium 2.2, Total Bilirubin 0.8, Direct Bilirubin 0.3, AST 13 L, ALT 47, Alkaline Phosphatase 48, Troponin I 0.10, [id number] Pept 9830 H, Total Protein 4.8 L, Albumin 2.6 L, Amylase < 30 L, Lipase 40, PT 12.1, INR 1.15, APTT 25, D-Dimer High Sensitivty 303 H 05/18/17 2219: Lactic Acid 1.2, CBC w Diff NO MAN DIFF REQ, RBC 4.46, MCV 93.6, MCH 30.0, RDW 21.3 H, MPV 8.8, Gran % 94.6 H, Lymphocytes % 2.2 L, Monocytes % 3.0, Eosinophils % 0.1, Basophils % 0.1, Absolute Granulocytes 10.4 H, Absolute Lymphocytes 0.2 L, Absolute Monocytes 0.3, Absolute Eosinophils 0, Absolute Basophils 0, PUBS MCHC 32.0 L 05/18/17 2210: pH 7.45, pCO2 37, pO2 54 L, HCO3 25, ABG O2 Sat (Measured) 86.0 L, P-50 (Temp Corrected) N, Carboxyhemoglobin 1.4 L, O2 Concentration % R/A, Temperature 99.4 , Phlebotomy Draw Site LEFT RADIAL Microbiology 05/19 1040 NASOPHARYN: Influenza Virus A & B Rapid Smear - COMP Assessment/Plan Impression/Plan: Impression Consultation is requested for shortness of breath in the setting of tachycardia. The patient's 86 years old with a history of stenting for coronary disease, hypertension, diabetes, chronic kidney disease creatinine is 1.3 today. She has a history of A. 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 She has been at [facility]. During examination the patient has been found to have tachycardia between 120 and 150 during examination. The platelets are noted to be 24. She also has an elevated white count. Her chest x-ray is with blunting of the left and right costophrenic angles. Echo in 2017 shows an EF 45 %. She is dyspneic but feels better. + edema, no cp but feels palpitations. Somewhat sleepy, but fully oriented and arousable. No n/v/d/c. No CERON. Plan -recommend CTA to rule out a pulmonary embolism -her dypsne is likely the result of a.fib with a rapid ventricular response -the CT will help us determine if there is an infectious process -her mild leukocytosis can be attributed to prednisone, she remains on broad spectrum abx in the meantime, will re-evaluate after ct chest -creatinine is 1.3 for CTA -cardiology consultation DVT prophylaxis at all times Consult Acknowledgment - Thank you for your consult request.
[2017-05-19 14:46] LABS: ABSOLUTE BASOPHIL COUNT 0 /CUMM (0.0-0.2); ABSOLUTE EOSINOPHIL COUNT 0 /CUMM (0.0-0.7); ABSOLUTE LYMPH COUNT 0.3 /CUMM (1.2-3.4); BASOPHIL % 0.1 % (0.0-2.0); EOSINOPHIL % 0 % (0-5); RED BLOOD CELL CT 3.66 /CUMM (4.20-5.40)
[2017-05-19 14:47] LABS: ABSOLUTE GRANULOCYTE CT 14.2 /CUMM (1.4-6.5); ABSOLUTE MONOCYTE COUNT 0.4 /CUMM (0.10-0.60); GRANULOCYTE % 95.1 % (42.2-75.2); HEMATOCRIT 33.6 % (37-47); MEAN CORPUSCULAR HGB 29.7 PG (27.0-31.0); MEAN CORPUSCULAR HGB CONC 32.3 G/DL (33.0-37.0); MEAN CORPUSCULAR VOLUME 91.8 FL (81.0-99.0); MEAN PLATELET VOLUME 9.3 FL (7.4-10.4); RBC DISTRIBUTION WIDTH 21.8 % (11.5-14.5)
[2017-05-19 14:59] LABS: PLATELET COUNT 21 /CUMM (130-400)
--- NOTE | 2017-05-19 15:25 | CT SCAN REPORT ---
EXAMINATION: CT HEAD WITHOUT CONTRAST CLINICAL INFORMATION: Altered mental status. Low platelets. COMPARISON: CT head 04/14/2017 TECHNIQUE: Contiguous axial imaging was performed from the skull base to vertex without intravenous administration of contrast. DLP: 630.54 mGy-cm FINDINGS: There is no evidence of acute intracranial hemorrhage or territorial infarction. No abnormal mass effect or midline shift is seen. Castro to white matter differentiation is well preserved. No extra-axial fluid collections are identified. There is atrophy with prominence of the ventricles and the sulci and hypodensity of the periventricular white matter due to chronic small vessel ischemic disease. There is vascular calcifications of the internal carotid arteries bilaterally. The osseous structures and soft tissues are normal. The mastoid air cells and visualized portions of the paranasal sinuses are well aerated. IMPRESSION: No acute intracranial pathology.
--- NOTE | 2017-05-19 15:36 | Cons- Infect Disease ---
General Information and HPI Consulting Request Date of Consult: 05/19/17 Requested By: Gokul Forde MD Reason for Consult: abx advice Source of Information: primary team Exam Limitations: clinical condition History of Present Illness: 86-year-old woman with past medical history of hypertension, hyperlipidemia, OR s/p PCI with stenting, diabetes mellitus, and restless leg syndrome, history of atrial fibrillation not on anticoagulation due to severe thrombocytopenia was sent in from extended care facility for hypoxia, leukocytosis (24K) and productive cough and admitted to telemetry unit 05/19/17. Patient reported on admission dry cough, that started 4 days ago. She denied shortness of breath, chest pain, fever/chills, orthopnea, palpitations, nausea, vomiting, abdominal pain or urinary symptoms. Her only other complaint o admission is right shoulder pain after she slipped from her couch last night. On admission chest x-ray is with blunting of the left and right costophrenic angles. Echo in 2017 shows an EF 45%. Currently lethargic; hypotensive requiring IVF and levophed. Rapid response called twice this afternoon. Allergies/Medications Allergies: Coded Allergies: codeine (SOB 07/09/15) Home Med List: Apixaban (Eliquis) 2.5 MG TABLET 2.5 MG PO BID Atrial Fibrilliation Atorvastatin Calcium (Lipitor) 80 MG TABLET 1 TAB PO DAILY CHOLESTEROL ( Reported) Calcium Carbonate/Vitamin D3 (Caltrate 600 + D Tablet) 600 MG-800 TABLET 1 TAB PO DAILY SUPPLEMENT (Reported) Carbidopa/Levodopa (Carbidopa-Levo ER 50-200 Tab) 50 MG-200 MG TABLET.ER 1 TAB PO DAILY RESTLESS LEGS Cyanocobalamin (Vitamin B-12) 1,000 MCG TABLET 1 TAB PO DAILY VITAMIN SUPPORT (Reported) diltiaZEM HCl (Diltiazem 24HR Cd) 360 MG CAP.ER.24H 1 TAB PO DAILY Heart rate Duloxetine HCl 60 MG CAPSULE.DR 1 CAP PO DAILY PAIN (Reported) Ferrous Sulfate 325 MG (65 MG IRON) TABLET.DR 325 MG PO BID supplement Folic Acid 1 MG TABLET 1 MG PO DAILY supplement Furosemide 20 MG TABLET 1 TAB PO DAILY WATER RETENTION (Reported) Lorazepam 1 MG TABLET 2 TAB PO QPM ANXIETY (Reported) Lorazepam 1 MG TABLET 1 TAB PO DAILY ANXIETY (Reported) Magnesium Oxide 400 MG TABLET 1 TAB PO DAILY SUPPLEMENT (Reported) Metformin HCl 1,000 MG TABLET 1 TAB PO DAILY DIABETES (Reported) Metoprolol Tartrate 100 MG TABLET 2 TAB PO BID HEART Mirtazapine 15 MG TABLET 1 TAB PO QPM SLEEP (Reported) Omeprazole 20 MG CAPSULE.DR 40 MG PO DAILY AC STOMACH HEALTH Prednisone 50 MG TABLET 1 TAB PO DAILY Thrombocytopenia Pregabalin (Lyrica) 75 MG CAPSULE 150 MG PO AT BEDTIME RESTLESS LEGS Current Medications: Current Medications Sig/Ric Start time Last Medication Dose Route Stop Time Status Admin Acetaminophen 650 MG Q6P PRN 05/19 0300 AC PO Acetaminophen 1,000 MG Q6P PRN 05/19 0300 AC IV Atorvastatin Calcium 80 MG 1700 05/19 1700 AC PO Ceftazidime 1,000 MG Q12 05/19 1000 AC 05/19 IV 1013 Ceftazidime 0 .STK-MED ONE 05/18 2340 DC .ROUTE Ceftazidime 1,000 MG ONCE ONE 05/18 2215 DC 05/18 IV 05/18 2216 2347 Diltiazem HCl 360 MG DAILY 05/19 1000 AC 05/19 PO 0824 Folic Acid 1 MG DAILY 05/19 1000 AC 05/19 PO 1019 Furosemide 20 MG DAILY 05/19 1000 AC 05/19 IV 1013 Furosemide 0 .STK-MED ONE 05/19 0543 DC IV Furosemide 20 MG ONCE ONE 05/19 0330 DC 05/19 IV 05/19 0331 0548 Lorazepam 0 .STK-MED ONE 05/19 1004 DC PO Lorazepam 1 MG DAILY 05/19 1000 AC 05/19 PO 1019 Metoprolol Tartrate 0 .STK-MED ONE 05/19 1141 DC IV Metoprolol Tartrate 5 MG ONCE ONE 05/19 1115 DC 05/19 IV 05/19 1116 1138 Metoprolol Tartrate 200 MG BID 05/19 1000 AC 05/19 PO 1019 Mirtazapine 15 MG QPM 05/19 2200 AC PO Omeprazole 40 MG DAILY AC 05/19 0700 AC 05/19 PO 0604 Omeprazole 0 .STK-MED ONE 05/19 0543 DC PO Prednisone 50 MG DAILY 05/19 1000 AC 05/19 PO 1019 Pregabalin 150 MG AT BEDTIME 05/19 2200 AC PO Sodium Chloride 1,000 ML Q13H 05/19 0300 DC IV Vancomycin HCl 1,000 MG DAILY 05/19 1000 AC 05/19 Sodium Chloride 250 ML IV 1013 Vancomycin HCl 1,000 MG ONCE ONE 05/18 2215 DC 05/18 Sodium Chloride 250 ML IV 05/18 4278 2346 Past History Travel History Traveled to [place] past 21 day No Medical History Neurological: restless leg syndrome, DIABETIC NEUROPATHY EENT: NONE Cardiovascular: hypertension, hyperlipidemia, myocardial infarction, CARDIAC STENTS Respiratory: NONE Gastrointestinal: constipation Hepatic: NONE Renal: NONE Musculoskeletal: falls, BILAT SHOULDER REPAIR LT KNEE REPAIR Psychiatric: anxiety Endocrine: diabetes Blood Disorders: thrombocytopenia Cancer(s): NONE CHILD GUIDANCE COUNSELOR/Reproductive: NONE Other Medical Hx: restless leg syndrome History of MRSA: Yes History of VRE: No History of CDIFF: No Isolation History: Standard Surgical History Surgical History: L KNEE BOTH SHOULDERS R GREAT TOE AMP BILATERAL SHOULDER SURGERY Family History Relations & Conditions If Any: Relation not specified for: *No pertinent family history Psychosocial History Where Do You Live? Extended Care Facility Services at Home: None Smoking Status: Former Smoker ETOH Use: occasional use Illicit Drug Use: denies illicit drug use Functional Ability ADLs Independent: dressing, eating, toileting, bathing. Ambulation: independent IADLs Independent: shopping, housework, finances, food prep, telephone, transportation , medication admin. Review of Systems Comments 12 points reviewed as noted. Exam & Diagnostic Data Last 24 Hrs of Vital Signs/I&O Vital Signs Date Time Temp Pulse Resp B/P B/P Pulse O2 O2 Flow FiO2 Mean Ox Delivery Rate 05/19 1338 99.8 109 14 111/51 90 Nasal 2.0L Cannula 05/19 1138 99.0 133 20 125/69 05/19 1047 99.0 124 20 125/69 96 Nasal 2.0L Cannula 05/19 1019 98.4 122 18 159/69 05/19 1014 98.4 122 18 159/69 98 Nasal 2.0L Cannula 05/19 1013 98.6 122 18 159/69 98 Nasal 2.0L Cannula 05/19 0855 96 Nasal 2.0L Cannula 05/19 0850 96 Nasal 2.0L Cannula 05/19 0707 98.0 120 22 115/78 05/19 0523 98.0 112 18 130/90 96 Room Air 2.5L 05/19 0256 97.2 112 18 126/68 93 Nasal 3.0L Cannula 05/19 0054 98.8 110 20 126/68 92 Nasal 3.0L Cannula 05/18 2149 99 22 161/81 91 Nasal 3.0L Cannula Intake & Output 05/19 1600 05/19 0800 05/19 0000 Intake Total 0 Output Total Balance 0 Intake, Oral 0 Patient 200 lb 200 lb Weight Weight Reported by Patient Estimated Measurement Method Physical Exam Other Physical Findings: General Appearance acutely ill Cardiovascular Normal S1, Normal S2, irregular Lungs BS diminished bases Abdomen Normal Bowel Sounds, Soft, No Tenderness Extremities No Clubbing, Chronic LE Venous Stasis changes with superimposed erythema, dry skin with breakdown without any bleeding or pulurent discharge, + 2 edema Neuro: lethargic, responsive to sternal rub Last 24 Hours of Lab Results: Laboratory Tests 05/19 05/19 1430 1430 Chemistry Sodium (137 - 145 mmol/L) 143 Potassium (3.5 - 5.1 mmol/L) 4.7 Chloride (98 - 107 mmol/L) 101 Carbon Dioxide (22 - 30 mmol/L) 32 H Anion Gap (5 - 16) 10 BUN (7 - 17 mg/dL) 52 H Creatinine (0.5 - 1.0 mg/dL) 1.6 H Estimated GFR (>60 ml/min) 31 L BUN/Creatinine Ratio (7 - 25 %) 32.5 H Lactic Acid (0.7 - 2.1 mmol/L) 1.2 Troponin I (< 0.11 ng/ml) Cancelled 0.17 *H Hematology CBC w Diff NO MAN DIFF REQ WBC (4.8 - 10.8 /CUMM) 15.0 H RBC (4.20 - 5.40 /CUMM) 3.66 L Hgb (12.0 - 16.0 G/DL) 10.9 L Hct (37 - 47 %) 33.6 L MCV (81.0 - 99.0 FL) 91.8 MCH (27.0 - 31.0 PG) 29.7 RDW (11.5 - 14.5 %) 21.8 H Plt Count (130 - 400 /CUMM) 21 *L MPV (7.4 - 10.4 FL) 9.3 Gran % (42.2 - 75.2 %) 95.1 H Lymphocytes % (20.5 - 51.1 %) 2.1 L Monocytes % (1.7 - 9.3 %) 2.7 Eosinophils % (0 - 5 %) 0 Basophils % (0.0 - 2.0 %) 0.1 Absolute Granulocytes (1.4 - 6.5 /CUMM) 14.2 H Absolute Lymphocytes (1.2 - 3.4 /CUMM) 0.3 L Absolute Monocytes (0.10 - 0.60 /CUMM) 0.4 Absolute Eosinophils (0.0 - 0.7 /CUMM) 0 Absolute Basophils (0.0 - 0.2 /CUMM) 0 PUBS MCHC (33.0 - 37.0 G/DL) 32.3 L 05/19 05/19 05/19 05/19 1425 1047 0600 0554 Blood Gas pH (7.35 - 7.45 PH) 7.38 pCO2 (35 - 45 TORR) 48 H pO2 (80 - 100 TORR) 53 L HCO3 (21 - 28 MEQ/L) 28 ABG O2 Sat (Measured) (>96.0 %) 84.0 L P-50 (Temp Corrected) N Carboxyhemoglobin (1.5 - 5.0 %) 1.5 O2 Concentration % 6L Temperature (97.0 - 100.0 FARH) 99.8 O2 Delivery Method N/C Chemistry Lactic Acid Cancelled Troponin I (< 0.11 ng/ml) 0.14 *H Cancelled Miscellaneous Phlebotomy Draw Site LEFT BRACH 05/19 05/19 0554 0554 Chemistry Estimated GFR Cancelled Cancelled 05/19 05/19 0554 0526 Chemistry Sodium (137 - 145 mmol/L) 142 Potassium (3.5 - 5.1 mmol/L) 5.1 Chloride (98 - 107 mmol/L) 102 Carbon Dioxide (22 - 30 mmol/L) 30 Anion Gap (5 - 16) 10 BUN (7 - 17 mg/dL) 56 H Creatinine (0.5 - 1.0 mg/dL) 1.3 H Estimated GFR (>60 ml/min) 39 L BUN/Creatinine Ratio (7 - 25 %) 43.1 H Troponin I (< 0.11 ng/ml) 0.12 *H Zyi-J-Ejbgnqcpkzd Pept (<125 pg/mL) 9630 H Hematology CBC w Diff MAN DIFF ORDERED WBC (4.8 - 10.8 /CUMM) 13.6 H RBC (4.20 - 5.40 /CUMM) 3.94 L Hgb (12.0 - 16.0 G/DL) 11.7 L Hct (37 - 47 %) 36.6 L MCV (81.0 - 99.0 FL) 93.1 MCH (27.0 - 31.0 PG) 29.7 RDW (11.5 - 14.5 %) 21.6 H Plt Count (130 - 400 /CUMM) 23 *L MPV (7.4 - 10.4 FL) 10.1 Gran % (42.2 - 75.2 %) 91.0 H Lymphocytes % (20.5 - 51.1 %) 3.5 L Monocytes % (1.7 - 9.3 %) 5.3 Eosinophils % (0 - 5 %) 0 Basophils % (0.0 - 2.0 %) 0.2 Absolute Granulocytes (1.4 - 6.5 /CUMM) 12.4 H Segmented Neutrophils (42.2 - 75.2 %) 86 H Absolute Lymphocytes (1.2 - 3.4 /CUMM) 0.5 L Lymphocytes (20.5 - 51.1 %) 3 L Monocytes (1.7 - 9.3 %) 11 H Absolute Monocytes (0.10 - 0.60 /CUMM) 0.7 H Absolute Eosinophils (0.0 - 0.7 /CUMM) 0 Absolute Basophils (0.0 - 0.2 /CUMM) 0 Platelet Estimate (ADEQUATE) DECREASED Polychromasia 1+ Hypochromic-Microcytic 1+ Poikilocytosis 1+ Ovalocytes 1+ PUBS MCHC (33.0 - 37.0 G/DL) 32.0 L Other Body Source Fld Total RBCs Counted (%) 100 Urines Urinalysis LIGHT H Urine Color (YEL,AMB,STR) YEL Urine Clarity (CLEAR) CLEAR Urine pH (5.0 - 8.0) 6.0 Ur Specific [place] (1.001 - 1.035) 1.020 Urine Protein (NEG,<30 MG/DL) 30 H Urine Ketones (NEG) NEG Urine Nitrite (NEG) NEG Urine Bilirubin (NEG) NEG Urine Urobilinogen (0.1 - 1.0 EU/dl) 0.2 Ur Leukocyte Esterase (NEG) NEG Ur Microscopic SEDIMENT EXAMINED Urine RBC (0 - 5 /HPF) 25-50 H Urine WBC (0 - 2 /HPF) 1-3 H Ur Epithelial Cells (NONE,FEW) FEW Hyaline Casts (0/LPF) 3-5 H Urine Mucus (FEW,NONE) FEW Urine Hemoglobin (NEG) MOD H Urine Glucose (N MG/DL) NEG 05/194 0103 2250 Chemistry Sodium (137 - 145 mmol/L) 139 Potassium (3.5 - 5.1 mmol/L) 5.4 H Chloride (98 - 107 mmol/L) 101 Carbon Dioxide (22 - 30 mmol/L) 29 Anion Gap (5 - 16) 9 BUN (7 - 17 mg/dL) 55 H Creatinine (0.5 - 1.0 mg/dL) 1.3 H Estimated GFR (>60 ml/min) 39 L BUN/Creatinine Ratio (7 - 25 %) 42.3 H Glucose (65 - 99 mg/dL) 143 H Lactic Acid Cancelled Cancelled Calcium (8.4 - 10.2 mg/dL) 8.3 L Magnesium (1.6 - 2.3 mg/dL) 2.2 Total Bilirubin (0.2 - 1.3 mg/dL) 0.8 Direct Bilirubin (< 0.4 mg/dL) 0.3 AST (14 - 36 U/L) 13 L ALT (9 - 52 U/L) 47 Alkaline Phosphatase (<127 U/L) 48 Troponin I (< 0.11 ng/ml) 0.10 Lbb-N-Pilddvckzhn Pept (<125 pg/mL) 9830 H Total Protein (6.3 - 8.2 g/dL) 4.8 L Albumin (3.5 - 5.0 g/dL) 2.6 L Amylase (30 - 110 U/L) < 30 L Lipase (23 - 300 U/L) 40 Coagulation PT (9.4 - 12.5 SEC) 12.1 INR (0.90 - 1.19) 1.15 APTT (25 - 37 SEC) 25 D-Dimer High Sensitivty (0 - 243 ng/ml) 303 H 05/18 2210 Blood Gas pH (7.35 - 7.45 PH) 7.45 pCO2 (35 - 45 TORR) 37 pO2 (80 - 100 TORR) 54 L HCO3 (21 - 28 MEQ/L) 25 ABG O2 Sat (Measured) (>96.0 %) 86.0 L P-50 (Temp Corrected) N Carboxyhemoglobin (1.5 - 5.0 %) 1.4 L O2 Concentration % R/A Temperature (97.0 - 100.0 FARH) 99.4 Chemistry Lactic Acid (0.7 - 2.1 mmol/L) 1.2 Hematology CBC w Diff NO MAN DIFF REQ WBC (4.8 - 10.8 /CUMM) 11.0 H RBC (4.20 - 5.40 /CUMM) 4.46 Hgb (12.0 - 16.0 G/DL) 13.4 Hct (37 - 47 %) 41.8 MCV (81.0 - 99.0 FL) 93.6 MCH (27.0 - 31.0 PG) 30.0 RDW (11.5 - 14.5 %) 21.3 H Plt Count (130 - 400 /CUMM) 44 L MPV (7.4 - 10.4 FL) 8.8 Gran % (42.2 - 75.2 %) 94.6 H Lymphocytes % (20.5 - 51.1 %) 2.2 L Monocytes % (1.7 - 9.3 %) 3.0 Eosinophils % (0 - 5 %) 0.1 Basophils % (0.0 - 2.0 %) 0.1 Absolute Granulocytes (1.4 - 6.5 /CUMM) 10.4 H Absolute Lymphocytes (1.2 - 3.4 /CUMM) 0.2 L Absolute Monocytes (0.10 - 0.60 /CUMM) 0.3 Absolute Eosinophils (0.0 - 0.7 /CUMM) 0 Absolute Basophils (0.0 - 0.2 /CUMM) 0 PUBS MCHC (33.0 - 37.0 G/DL) 32.0 L Miscellaneous Phlebotomy Draw Site LEFT RADIAL Last 24 Hours of Silvano Results: SPEC #: [id number] MARIBEL: 05/18/17 STATUS: RES RECD: 05/18/[address]: Alycia RAMOS, Jackson Talavera SOURCE: BLOOD ENTR: 05/18/[address]: July Crisostomo MD SPDESC: 2ND/VENOUS ORDERED: BLOOD CULTURE Procedure Result > BLOOD CULTURE REPORT Preliminary 01/15/18-1211 No growth after 1 day incubation. Specimen is examined continuously for 5 days before final report unless culture becomes positive. Diagnostic Data Recent Imaging Findings: CXR 05/18 IMPRESSION: Lung volumes are low. Small moderate left pleural effusion with small right pleural effusion. Associated airspace opacity could be associated with fluid overload as there is central vascular prominence. Pneumonia difficult to exclude. DICTATED BY: Randolph Kaye MD DATE/TIME DICTATED:05/18/172330 [employer]S COUNTER SALES PERSON:SHARIF DATE/TIME TRANSCRIBED:05/18/172330 CONFIDENTIAL, DO NOT COPY WITHOUT APPROPRIATE AUTHORIZATION. SERVICE DATE: 05/19/17 EXAM TYPE: CAT - CT HEAD WO IV CONTRAST EXAMINATION: CT HEAD WITHOUT CONTRAST CLINICAL INFORMATION: Altered mental status. Low platelets. COMPARISON: CT head 04/14/2017 TECHNIQUE: Contiguous axial imaging was performed from the skull base to vertex without intravenous administration of contrast. DLP: 630.54 mGy-cm FINDINGS: There is no evidence of acute intracranial hemorrhage or territorial infarction. No abnormal mass effect or midline shift is seen. Castro to white matter differentiation is well preserved. No extra-axial fluid collections are identified. There is atrophy with prominence of the ventricles and the sulci and hypodensity of the periventricular white matter due to chronic small vessel ischemic disease. There is vascular calcifications of the internal carotid arteries bilaterally. The osseous structures and soft tissues are normal. The mastoid air cells and visualized portions of the paranasal sinuses are well aerated. IMPRESSION: No acute intracranial pathology. DICTATED BY: Robert Allen MD DATE/TIME DICTATED:05/19/171519 [employer]S COUNTER SALES PERSON:SHARIF DATE/TIME TRANSCRIBED:05/19/171519 CONFIDENTIAL, DO NOT COPY WITHOUT APPROPRIATE AUTHORIZATION. <Electronically signed in Other Vendor System> SIGNED BY: Robert Allen MD 05/19/[address] chest IMPRESSION: 1. Accounting for suboptimal examination for reasons described above, there are no definite pulmonary emboli. 2. Moderate atelectasis or consolidation in the left upper and lower lobes. Mild right base atelectasis. 3. Moderate left and dvzpp-qj-qvamhmxg right pleural effusions. 4. Cardiomegaly. Reflux of contrast into the IVC and hepatic veins suggesting elevated right heart pressures. VTE: Negative DICTATED BY: Freddie De Santiago MD DATE/TIME DICTATED:01/15/18 / 1519 PARTS COUNTER SALES PERSON:SHARIF Assessment/Plan Assessment/Plan Impression: 86-year-old woman with past medical history of hypertension, hyperlipidemia, OR s/p PCI with stenting, diabetes mellitus, and restless leg syndrome, history of atrial fibrillation not on anticoagulation due to severe thrombocytopenia was sent in from extended care facility for hypoxia, leukocytosis and productive cough and admitted 05/19/17. Sepsis; eval aspiration pneumonia/PE; f/u pulmonary recommendations Leukocytosis Suggestion: 1. Empiric abx coverage w/ iv vancomycin 1 gm x 1/ceftazidime 1 gm q 12 h/ doxycycline 100 mg iv q 12h. Aspiration precautions. Legionella and pneumococcal ur ag. 2. F/U culture results; sputum cx if feasible. Nasal MRSA surv cx. 3. Trend CBC, BMP, lactic acid. Consult Acknowledgment - Thank you for your consult request.
--- NOTE | 2017-05-19 15:49 | CT SCAN REPORT ---
EXAMINATION: CT ANGIOGRAM OF THE CHEST WITH AND WITHOUT CONTRAST (CT PULMONARY ANGIOGRAM FOR PE) CLINICAL INFORMATION: Shortness of breath, CHF, PVD. Presumptive diagnosis: PE. COMPARISON: CT angiogram of chest 03/03/2012. CT of the abdomen and pelvis 03/16/2015. TECHNIQUE: Prior to contrast administration, noncontrast localization images were obtained. Subsequently, multidetector volumetric imaging was performed from the thoracic inlet to below the diaphragms following the administration of 95 mL Optiray 350 intravenous contrast. No contrast reaction reported. Sagittal, coronal, and MIP oblique sagittal reformatted images were obtained on the CT workstation, uploaded to PACS, and reviewed. DLP: 510.79 mGy-cm FINDINGS: QUALITY OF STUDY/CONTRAST BOLUS: There is very good opacification of the pulmonary arteries but there is suboptimal evaluation due to other factors, including body habitus and significant artifact from the right arm at the patient's right side. PULMONARY ARTERIES: Accounting for suboptimal examination for reasons described above, there are no apparent pulmonary emboli in the central and segmental pulmonary artery branches. THORACIC AORTA: No evidence of aneurysm or dissection. LUNG: There is moderate atelectasis or consolidation in the left upper and lower lobes. There is mild right base atelectasis. PLEURA: There are moderate left and aexkm-hh-rlovenud right pleural effusions. MEDIASTINUM: There is cardiomegaly. There is no adenopathy. The thyroid gland is unremarkable. No evidence of septal bowing or right heart strain. CHEST WALL/AXILLA: No axillary or internal mammary lymphadenopathy. OSSEOUS STRUCTURES: No acute or suspicious osseous abnormality. UPPER ABDOMEN: Unremarkable. There is reflux of contrast into the IVC and hepatic veins suggesting elevated right heart pressures. IMPRESSION: 1. Accounting for suboptimal examination for reasons described above, there are no definite pulmonary emboli. 2. Moderate atelectasis or consolidation in the left upper and lower lobes. Mild right base atelectasis. 3. Moderate left and diygm-ou-fmbuoiuv right pleural effusions. 4. Cardiomegaly. Reflux of contrast into the IVC and hepatic veins suggesting elevated right heart pressures. VTE: Negative
--- NOTE | 2017-05-19 16:25 | Event Note ---
Event Note Event Note: S: Patient received in the [facility] after rapid response. She was orignally admitted on the telemetry service. Was persistently hypotensive and obtunded. B: Pateint admitted 05/19/2017, being managed for the following: Acute hypoxic respiratory failure, Encephalopathy and decreased responsiveness, Hypotension; likely due to sepsis vs volume depletion A/R: EKG performed. Fluid bolus running. Director Of Physician Practices Dr Pyle informed. 4.30 PM. Started peripharel Levophed. Placed surgical consult for Femoral line. Informed Surgical Team beeper #[phone]. 4.40 PM Consent from son, Central Line Obtained. Attending Dr Forde at Bedside. 6.00 PM. Patient desaturated to 82%. Anesthesia called and patient intubated. Director Of Physician Practices Informed. 6.40 PM: Echocradiogram at Bed Side. Owing to the fact that the patient was still tachycardic (HR 140-150), I called the answering service of Dr Álvarez. Received a call back 7.[address] Johnson who recomends that we can continue the patient on Digoxin 0.25mg now, subseqeuntly, 0.25mg in six hours and then 0.[address] Álvarez will be informed and updated. If any acute changes overnight, please inform Dr Álvarez: [phone]. 7.[address] Álvarez. We will proceed with the Digoxin. Will also maintain the patient on IVF. Echo results pending, will be read by Dr Thompson. Target HR < 130. 10.03 PM: HR: 99-120. BP: 108/83. Levophed 8.0 mcg. Wiil continue with current management. Hydraulic Technician updated. Will continue to monitor. Nikita Rogers: [phone]
--- NOTE | 2017-05-19 16:28 | Event Note ---
Event Note Event Note: 2:30 PM - Situation - I was told by the nurse that patient has moved upstairs from the emergency department and now she is not responding. 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 for difficulty breathing, nonproductive cough and was noted to be hypoxic to 88% on RA.She had blood work done at facility that showed leukocytosis of 24.3 and Platelet of 24. Of note, patient has been off lasix due to BUN/creat abnormalities and had a 3 lb weight gain over past 2 days. She is also off the eliquis due to low platelets. Assessment - Vital signs -temperature 101, blood pressure 100/60, pulse feeble, 100 per minute, SPO2 89% on 4 liters of oxygen. On examination, patient was drowsy but responding to all verbal commands, able to move all her limbs, breathing from the mouth, chest bilateral basilar crackles, heart S1, S2 normal, abdomen soft, bilateral lower extremity cellulitis and chronic skin changes were present. Rapid response was called and blood work up sent for - including blood cultures, CBC, BEP, troponin, EKG and ABG. ABG showed -pH 7.38, PCO2 48, PO2 53, bicarbonate 28, Platelet count was 21,000, troponin was elevated to 0.17. EKG was showing atrial fibrillation with rapid ventricular rate. Plan - Discussed with , advised for state CT of the head and CTA of the chest to rule out any intracranial hemorrhage and pulmonary embolism. We advised to keep watch on vital parameters. If patient gets deteriorated, then she will be transferred to the ICU for further management and treatment. We updated the patient's situation to her son, Mister Rogers. 3:40PM After coming from the CAT scan patient again deteriorated and was not responding to all verbal commands. Rapid response was again called. Her blood pressure dropped down to 70/40 and she was desaturating, so transferred to the ICU. * We advised to give IV fluids normal saline thousand cc 2 boluses * If patient doesnt respond, then start on pressures * EKG again showed atrial fibrillation with rapid ventricular rate and heart rate was more than 125. We advised to take inj Digoxin 0.25 mgs IV state. * Withhold intubation, unless patient desaturated, again deteriorated. * CT scan of the head did not show any evidence of intracranial hemorrhage, CTA of the chest did not show any evidence of pulmonary embolism. * We signed out to ICU team including Dr. Leija and Dr Posadas.
--- NOTE | 2017-05-19 16:56 | PN- Att Addend ---
Attending Addendum Attending Brief Note Patient seen and examined. Earlier this morning in the emergency room she was drowsy but arousable. Oriented 3. Answered questions appropriately. She denied any pain. Shortly after she arrived in the medical floor she was found obtunded by nursing staff. Rapid response was called. She was found to be saturating in the 80s on 6-8 L of oxygen. After nonrebreather mask was placed she became more alert. Sitting up. Denied any symptoms. Asking to drink yessenia david. She was able to prop herself up in the bed independently. Though she was drowsy she has had questions appropriately. She was given jovial. At the time blood pressure was adequate. ABGs showed no CO2 retention. EKG showed atrial fibrillation with rapid ventricular response and no ischemic changes. Stat head CT showed no acute pathologies. CT of the chest showed no pulmonary embolism. It showed left upper and lower lobe pneumonia. About an hour later after she had undergone her imaging she again became obtunded. She was unresponsive to tactile or verbal stimuli. She was maintaining her airway and keep his saturation on nasal cannula. Her blood pressure however had dropped into the 70s systolic. She remained atrial fibrillation with rapid ventricular response. She was febrile. She is comfortable to the intensive care unit for further management. Case was discussed with rotary bar operator on-call. Recommendations were to monitor patient closely holding off intubation if she is maintaining her saturation on nasal cannula. Patient has not received any opiate medication drinks admission. She received 1 mg of Ativan in the early hours of the morning. A dose of Narcan was given in the ICU with no improvement in mental status. Symptoms are likely due to her sepsis. Fluid bolus was started and due to persistent hypotension peripheral Levophed was initiated with improvement of her blood pressure into the low 100s. She however remains obtunded. Vital Signs Date Time Temp Pulse Resp B/P B/P Pulse O2 O2 Flow FiO2 Mean Ox Delivery Rate 05/19 1644 Nasal 6.0L Cannula 05/19 1338 99.8 109 14 111/51 90 Nasal 2.0L Cannula 05/19 1138 99.0 133 20 125/69 05/19 1047 99.0 124 20 125/69 96 Nasal 2.0L Cannula 05/19 1019 98.4 122 18 159/69 05/19 1014 98.4 122 18 159/69 98 Nasal 2.0L Cannula 05/19 1013 98.6 122 18 159/69 98 Nasal 2.0L Cannula 05/19 0855 96 Nasal 2.0L Cannula 05/19 0850 96 Nasal 2.0L Cannula 05/19 0707 98.0 120 22 115/78 05/19 0523 98.0 112 18 130/90 96 Room Air 2.5L 05/19 0256 97.2 112 18 126/68 93 Nasal 3.0L Cannula 05/19 0054 98.8 110 20 126/68 92 Nasal 3.0L Cannula 05/18 2149 99 22 161/81 91 Nasal 3.0L Cannula Gen. appearance: Obese, nonresponsive to tactile or verbal stimuli. HEENT: Anicteric, no pallor, pupils round and weakly reactive. Heart: S1-S2 irregular. Lungs: Fair entry bilaterally, no added sounds. Abdomen: Obese, soft, nontender with normal bowel sounds. Extremities bilateral lower extremity edema 1-2+ with diffuse excoriation mccarthy and petechial lesions. Laboratory Tests 05/19/17 1620: pH 7.37, pCO2 49 H, pO2 83, HCO3 28, ABG O2 Sat (Measured) 94.0 L, P-50 (Temp Corrected) N, Carboxyhemoglobin 0.7 L, O2 Concentration % 6L, Temperature 99.0, O2 Delivery Method NC, Phlebotomy Draw Site RIGHT BRACHIAL 05/19/17 1430: Troponin I Cancelled 05/19/17 1430: Anion Gap 10, Estimated GFR 31 L, BUN/Creatinine Ratio 32.5 H, Lactic Acid 1.2 , Troponin I 0.17 *H, CBC w Diff NO MAN DIFF REQ, RBC 3.66 L, MCV 91.8, MCH 29.7, RDW 21.8 H, MPV 9.3, Gran % 95.1 H, Lymphocytes % 2.1 L, Monocytes % 2.7, Eosinophils % 0, Basophils % 0.1, Absolute Granulocytes 14.2 H, Absolute Lymphocytes 0.3 L, Absolute Monocytes 0.4, Absolute Eosinophils 0, Absolute Basophils 0, PUBS MCHC 32.3 L 05/19/17 1425: pH 7.38, pCO2 48 H, pO2 53 L, HCO3 28, ABG O2 Sat (Measured) 84.0 L, P-50 ( Temp Corrected) N, Carboxyhemoglobin 1.5, O2 Concentration % 6L, Temperature 99.8, O2 Delivery Method N/C, Phlebotomy Draw Site LEFT BRACH 05/19/17 1047: Troponin I 0.14 *H 05/19/17 0600: Troponin I Cancelled 05/19/17 0554: Lactic Acid Cancelled 05/19/17 0554: Estimated GFR Cancelled 05/19/17 0554: Estimated GFR Cancelled 05/19/17 0554: Anion Gap 10, Estimated GFR 39 L, BUN/Creatinine Ratio 43.1 H, Troponin I 0.12 *H, Cac-Y-Uylkwwnjgqe Pept 9630 H, CBC w Diff MAN DIFF ORDERED, RBC 3.94 L, MCV 93.1, MCH 29.7, RDW 21.6 H, MPV 10.1, Gran % 91.0 H, Lymphocytes % 3.5 L, Monocytes % 5.3, Eosinophils % 0, Basophils % 0.2, Absolute Granulocytes 12.4 H , Segmented Neutrophils 86 H, Absolute Lymphocytes 0.5 L, Lymphocytes 3 L, Monocytes 11 H, Absolute Monocytes 0.7 H, Absolute Eosinophils 0, Absolute Basophils 0, Platelet Estimate DECREASED, Polychromasia 1+, Hypochromic- Microcytic 1+, Poikilocytosis 1+, Ovalocytes 1+, PUBS MCHC 32.0 L, Fld Total RBCs Counted 100 05/19/17 0526: Urinalysis LIGHT H, Urine Color YEL, Urine Clarity CLEAR, Urine pH 6.0, Ur Specific [place] 1.020, Urine Protein 30 H, Urine Ketones NEG, Urine Nitrite NEG, Urine Bilirubin NEG, Urine Urobilinogen 0.2, Ur Leukocyte Esterase NEG, Ur Microscopic SEDIMENT EXAMINED, Urine RBC 25-50 H, Urine WBC 1-3 H, Ur Epithelial Cells FEW, Hyaline Casts 3-5 H, Urine Mucus FEW, Urine Hemoglobin MOD H, Urine Glucose NEG 05/19/17 0254: Lactic Acid Cancelled 05/19/17 0103: Lactic Acid Cancelled 05/18/17 2250: Anion Gap 9, Estimated GFR 39 L, BUN/Creatinine Ratio 42.3 H, Glucose 143 H, Calcium 8.3 L, Magnesium 2.2, Total Bilirubin 0.8, Direct Bilirubin 0.3, AST 13 L, ALT 47, Alkaline Phosphatase 48, Troponin I 0.10, Mpm-I-Doybignshtl Pept 9830 H, Total Protein 4.8 L, Albumin 2.6 L, Amylase < 30 L, Lipase 40, PT 12.1, INR 1.15, APTT 25, D-Dimer High Sensitivty 303 H 05/18/172218: Lactic Acid 1.2, CBC w Diff NO MAN DIFF REQ, RBC 4.46, MCV 93.6, MCH 30.0, RDW 21.3 H, MPV 8.8, Gran % 94.6 H, Lymphocytes % 2.2 L, Monocytes % 3.0, Eosinophils % 0.1, Basophils % 0.1, Absolute Granulocytes 10.4 H, Absolute Lymphocytes 0.2 L, Absolute Monocytes 0.3, Absolute Eosinophils 0, Absolute Basophils 0, PUBS MCHC 32.0 L 05/18/172209: pH 7.45, pCO2 37, pO2 54 L, HCO3 25, ABG O2 Sat (Measured) 86.0 L, P-50 (Temp Corrected) N, Carboxyhemoglobin 1.4 L, O2 Concentration % R/A, Temperature 99.4 , Phlebotomy Draw Site LEFT RADIAL Microbiology 05/19 1651 UPPER RESP: Surveillance Culture - ORD 05/19 1650 URINE ROUT: Legionella Antigen - ORD 05/19 1650 URINE ROUT: Streptococcus pneumoniae Antigen (M - ORD 05/19 1630 UPPER RESP: Surveillance Culture - RECD 05/19 1630 GI: Surveillance Culture - RECD 05/19 1430 BLOOD: Blood Culture - RECD 05/19 1425 BLOOD: Blood Culture - RECD 05/19 1040 NASOPHARYN: Influenza Virus A & B Rapid Smear - COMP 05/19 0526 URINE ROUT: Urine Culture - RECD 05/18 2303 BLOOD: Blood Culture - RES 05/18 2250 BLOOD: Blood Culture - RES Problems: 1. Acute hypoxic respiratory failure 2. Encephalopathy; query etiology likely toxic metabolic from infection and hypertension. 3. Hypotension; likely secondary to volume depletion versus sepsis. 4. Sepsis; probably secondary to pneumonia noted on Chest CT 5. Idiopathic thrombocytopenic purpura. 6. History of heart failure with reduced ejection fraction. 7. Elevated troponins likely secondary to type II myocardial infarctio brought about by demand supply mismatch from her hypotension and hypoxia. 8. Pleural Effusion. Plan: -ID consultation appreciated. Respiratory metabolic therapy with vancomycin, ceftazidime and doxycycline. -Follow-up patterson-cultures. -Resuscitation with normal saline. Patient has been started on peripheral pressor support. Keep map greater than 65. -Surgical consultation for placement of central line. -Currently maintaining saturation on 6 L oxygen via nasal cannula. Patient however is unresponsive. Case discussed with on-call rotary bar operator. Patient will require endotracheal intubation and mechanical ventilation if she continues to be unable to protect her airway. -Trend cardiac enzymes. Repeat echocardiogram. Cardiology consultation has been placed with her major account manager Dr. Álvarez. -In view of her chronic steroid use recommend stress dose steroid therapy. Check random cortisol level. -Anticoagulation on hold due to her severe thrombocytopenia. DVT prophylaxis with bilateral compression devices. -Vascular surgery consultation appreciated.
[2017-05-19 17:21] VITALS: BP 117/71
--- NOTE | 2017-05-19 17:43 | Procedure ---
Minor Surgical Procedure Note Date of Procedure: 05/19/17 Procedure Note: Procedure: R IJ tlc placement via ultrasound guidance Consent obtained from patient's son for emergent need for iv pressors, known thrombocytopenia Patient prepped and draped in sterile fashion. Ultrasound used to isolate major vessels in the neck, which revealed a large, compressible internal jugular vein. Lidocaine in sterile kit used to infiltrate area of neck where IJ was isolated, and triple lumen catheter was advanced. All three ports withdrew venous blood and easily flushed as well. TLC anchored with sutures, and dressed appropriately. All sharps were accounted for, and disposed in sharps container. Portable chest xray ordered for placement and to rule out pneumothorax
[2017-05-19 18:03] LABS: ABSOLUTE BASOPHIL COUNT 0 /CUMM (0.0-0.2); ABSOLUTE EOSINOPHIL COUNT 0 /CUMM (0.0-0.7); ABSOLUTE GRANULOCYTE CT 17.8 /CUMM (1.4-6.5); ABSOLUTE LYMPH COUNT 0.4 /CUMM (1.2-3.4); ABSOLUTE MONOCYTE COUNT 0.3 /CUMM (0.10-0.60); BASOPHIL % 0 % (0.0-2.0); EOSINOPHIL % 0 % (0-5); MEAN CORPUSCULAR HGB 29.8 PG (27.0-31.0); MEAN CORPUSCULAR VOLUME 93.3 FL (81.0-99.0); RBC DISTRIBUTION WIDTH 21.5 % (11.5-14.5); RED BLOOD CELL CT 3.64 /CUMM (4.20-5.40); WHITE BLOOD CELL COUNT 18.5 /CUMM (4.8-10.8)
--- NOTE | 2017-05-19 18:46 | RADIOLOGY REPORT ---
EXAMINATION: CHEST 1 VIEW CLINICAL INFORMATION: Line placement. COMPARISON: 05/18/2017. TECHNIQUE: An AP view of the chest is provided. FINDINGS: The cardiac silhouette is enlarged, but stable. An endotracheal tube is in place. The tip is approximately 15 mm above the krystal. An enteric tube is in place. The tip is difficult to discern, but below the left hemidiaphragm. A right central venous line is in place. The tip overlies the distal SVC. There are left greater than right bilateral pleural effusions with associated airspace disease. The osseous structures are stable. IMPRESSION: Lines and tubes in place as stated above. Left greater than right bilateral pleural effusions with associated airspace disease.
[2017-05-19 19:05] LABS: GRANULOCYTE % 96.2 % (42.2-75.2); PLATELET COUNT 31 /CUMM (130-400)
--- NOTE | 2017-05-19 19:50 | Cons- Cardiology ---
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 Patient became lethargic and unresponsive twice after arriving to telemetry. Mental status slightly improved after being given oxygen but she continued to be very lethargic and was transferred to ICU. CT head did not reveal any acute abnormality, CTA lungs showed no PE, there was left upper and lower lobe infiltrate with moderate left and small to modererate right pleural effusion. Allergies/Medications Allergies: Coded Allergies: codeine (SOB 07/09/15) Home Med List: Apixaban (Eliquis) 2.5 MG TABLET 2.5 MG PO BID Atrial Fibrilliation Atorvastatin Calcium (Lipitor) 80 MG TABLET 1 TAB PO DAILY CHOLESTEROL ( Reported) Calcium Carbonate/Vitamin D3 (Caltrate 600 + D Tablet) 600 MG-800 TABLET 1 TAB PO DAILY SUPPLEMENT (Reported) Carbidopa/Levodopa (Carbidopa-Levo ER 50-200 Tab) 50 MG-200 MG TABLET.ER 1 TAB PO DAILY RESTLESS LEGS Cyanocobalamin (Vitamin B-12) 1,000 MCG TABLET 1 TAB PO DAILY VITAMIN SUPPORT (Reported) diltiaZEM HCl (Diltiazem 24HR Cd) 360 MG CAP.ER.24H 1 TAB PO DAILY Heart rate Duloxetine HCl 60 MG CAPSULE.DR 1 CAP PO DAILY PAIN (Reported) Ferrous Sulfate 325 MG (65 MG IRON) TABLET.DR 325 MG PO BID supplement Folic Acid 1 MG TABLET 1 MG PO DAILY supplement Furosemide 20 MG TABLET 1 TAB PO DAILY WATER RETENTION (Reported) Lorazepam 1 MG TABLET 2 TAB PO QPM ANXIETY (Reported) Lorazepam 1 MG TABLET 1 TAB PO DAILY ANXIETY (Reported) Magnesium Oxide 400 MG TABLET 1 TAB PO DAILY SUPPLEMENT (Reported) Metformin HCl 1,000 MG TABLET 1 TAB PO DAILY DIABETES (Reported) Metoprolol Tartrate 100 MG TABLET 2 TAB PO BID HEART Mirtazapine 15 MG TABLET 1 TAB PO QPM SLEEP (Reported) Omeprazole 20 MG CAPSULE.DR 40 MG PO DAILY AC STOMACH HEALTH Prednisone 50 MG TABLET 1 TAB PO DAILY Thrombocytopenia Pregabalin (Lyrica) 75 MG CAPSULE 150 MG PO AT BEDTIME RESTLESS LEGS Current Medications: Current Medications Sig/Ric Start time Last Medication Dose Route Stop Time Status Admin Acetaminophen 650 MG Q6P PRN 05/19 0300 AC PO Acetaminophen 1,000 MG Q6P PRN 05/19 0300 AC IV Atorvastatin Calcium 80 MG 1700 05/19 1700 AC PO Ceftazidime 1,000 MG Q12 05/19 1000 AC 05/19 IV 1013 Ceftazidime 0 .STK-MED ONE 05/18 2340 DC .ROUTE Ceftazidime 1,000 MG ONCE ONE 05/18 2215 DC 05/18 IV 05/18 2216 2347 Digoxin 0.25 MG ONCE ONE 05/20 0130 UNVr IV 05/20 0131 Digoxin 0.25 MG ONCE ONE 05/19 1930 UNVr IV 05/19 1931 Digoxin 0.25 MG ONCE ONE 05/19 1615 DC 05/19 IV 05/19 1616 1644 Diltiazem HCl 360 MG DAILY 05/19 1000 AC 05/19 PO 0824 Doxycycline Hyclate 100 MG Q12 05/19 2200 AC Dextrose/Water 100 ML IV Folic Acid 1 MG DAILY 05/19 1000 AC 05/19 PO 1019 Furosemide 20 MG DAILY 05/19 1000 AC 05/19 IV 1013 Furosemide 0 .STK-MED ONE 05/19 0543 DC IV Furosemide 20 MG ONCE ONE 05/19 0330 DC 05/19 IV 05/19 0331 0548 Hydrocortisone 100 MG Q8 05/19 1639 AC 05/19 Sodium Succinate IV 1647 Lorazepam 0 .STK-MED ONE 05/19 1004 DC PO Lorazepam 1 MG DAILY 05/19 1000 AC 05/19 PO 1019 Metoprolol Tartrate 0 .STK-MED ONE 05/19 1141 DC IV Metoprolol Tartrate 5 MG ONCE ONE 05/19 1115 DC 05/19 IV 05/19 1116 1138 Metoprolol Tartrate 200 MG BID 05/19 1000 AC 05/19 PO 1019 Mirtazapine 15 MG QPM 05/19 2200 AC PO Naloxone HCl 0.4 MG ONCE ONE 05/19 1615 DC 05/19 IM 05/19 1616 1637 Norepinephrine 4 MG Q10H 05/20 0230 AC Dextrose/Water 250 ML IV Norepinephrine 4 MG Q24H 05/19 1630 AC 05/19 Dextrose/Water 250 ML IV 05/20 0229 1637 Omeprazole 40 MG DAILY AC 05/19 0700 AC 05/19 PO 0604 Omeprazole 0 .STK-MED ONE 05/19 0543 DC PO Prednisone 50 MG DAILY 05/19 1000 DC 05/19 PO 1019 Pregabalin 150 MG AT BEDTIME 05/19 2200 AC PO Sodium Chloride 1,000 ML Q10H 05/19 1915 AC IV 05/20 1514 Sodium Chloride 1,000 ML Q13H 05/19 0300 DC IV Vancomycin HCl 1,000 MG DAILY 05/19 1000 AC 05/19 Sodium Chloride 250 ML IV 1013 Vancomycin HCl 1,000 MG ONCE ONE 05/18 2215 DC 05/18 Sodium Chloride 250 ML IV 05/18 2314 2345 Review of Systems Review of Systems: Unable to obtain ROS due to patient mental status Past History Travel History Traveled to [place] past 21 day No Medical History Neurological: restless leg syndrome, DIABETIC NEUROPATHY EENT: NONE Cardiovascular: hypertension, hyperlipidemia, myocardial infarction, CARDIAC STENTS Respiratory: NONE Gastrointestinal: constipation Hepatic: NONE Renal: NONE Musculoskeletal: falls, BILAT SHOULDER REPAIR LT KNEE REPAIR Psychiatric: anxiety Endocrine: diabetes Blood Disorders: thrombocytopenia 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 Extended Care Facility Services at Home: None Smoking Status: Former Smoker ETOH Use: occasional use Illicit Drug Use: denies illicit drug use Functional Ability ADLs Independent: dressing, eating, toileting, bathing. Ambulation: independent IADLs Independent: shopping, housework, finances, food prep, telephone, transportation , medication admin. Exam & Diagnostic Data Vital Signs and I&O Vital Signs Date Time Temp Pulse Resp B/P B/P Pulse O2 O2 Flow FiO2 Mean Ox Delivery Rate 05/19 1721 97.7 121 24 117/71 95 Nasal 4.0L Cannula 05/19 1644 Nasal 6.0L Cannula 05/19 1338 99.8 109 14 111/51 90 Nasal 2.0L Cannula 05/19 1138 99.0 133 20 125/69 05/19 1047 99.0 124 20 125/69 96 Nasal 2.0L Cannula 05/19 1019 98.4 122 18 159/69 05/19 1014 98.4 122 18 159/69 98 Nasal 2.0L Cannula 05/19 1013 98.6 122 18 159/69 98 Nasal 2.0L Cannula 05/19 0855 96 Nasal 2.0L Cannula 05/19 0850 96 Nasal 2.0L Cannula 05/19 0707 98.0 120 22 115/78 05/19 0523 98.0 112 18 130/90 96 Room Air 2.5L 05/19 0256 97.2 112 18 126/68 93 Nasal 3.0L Cannula 05/19 0054 98.8 110 20 126/68 92 Nasal 3.0L Cannula 05/18 2149 99 22 161/81 91 Nasal 3.0L Cannula Intake & Output 05/19 1600 05/19 0800 05/19 0000 05/18 1600 05/18 0800 05/18 0000 Intake Total 0 Output Total Balance 0 Intake, Oral 0 Patient 200 lb 200 lb Weight Weight Reported by Patient Estimated Measurement Method Physical Exam: Patient is lethargic, obtunded, unable to carry verbal commands HEENT-PERRLA Neck-obese, unable to assess JVP, no bruits Lungs-decreased BS at both bases with few bilateral rhonchi Heart-S1S2 irregular tachycardia, no murmur Abdomen-soft, obese, BS+, no organomegaly Extr-1-2+edema, chronic stasis dermatitis with mild left erythema, diminished distal pulses Neuro-not responding to verbal stimuli, grossly no focal deficit Labs/Silvano Results: Laboratory Tests 05/19 05/19 1750 1620 Blood Gas pH (7.35 - 7.45 PH) 7.37 pCO2 (35 - 45 TORR) 49 H pO2 (80 - 100 TORR) 83 HCO3 (21 - 28 MEQ/L) 28 ABG O2 Sat (Measured) (>96.0 %) 94.0 L P-50 (Temp Corrected) N Carboxyhemoglobin (1.5 - 5.0 %) 0.7 L O2 Concentration % 6L Temperature (97.0 - 100.0 FARH) 99.0 O2 Delivery Method NC Chemistry Sodium (137 - 145 mmol/L) 143 Potassium (3.5 - 5.1 mmol/L) 4.8 Chloride (98 - 107 mmol/L) 102 Carbon Dioxide (22 - 30 mmol/L) 31 H Anion Gap (5 - 16) 11 BUN (7 - 17 mg/dL) 55 H Creatinine (0.5 - 1.0 mg/dL) 1.5 H Estimated GFR (>60 ml/min) 33 L Glucose (65 - 99 mg/dL) 93 Calcium (8.4 - 10.2 mg/dL) 7.8 L Phosphorus (2.5 - 4.5 mg/dL) 4.6 H Magnesium (1.6 - 2.3 mg/dL) 2.0 Total Bilirubin (0.2 - 1.3 mg/dL) 0.5 AST (14 - 36 U/L) 21 ALT (9 - 52 U/L) 37 Albumin (3.5 - 5.0 g/dL) 2.2 L Hematology CBC w Diff NO MAN DIFF REQ WBC (4.8 - 10.8 /CUMM) 18.5 H RBC (4.20 - 5.40 /CUMM) 3.64 L Hgb (12.0 - 16.0 G/DL) 10.9 L Hct (37 - 47 %) 34.0 L MCV (81.0 - 99.0 FL) 93.3 MCH (27.0 - 31.0 PG) 29.8 RDW (11.5 - 14.5 %) 21.5 H Plt Count (130 - 400 /CUMM) 31 L MPV (7.4 - 10.4 FL) 10.0 Gran % (42.2 - 75.2 %) 96.2 H Lymphocytes % (20.5 - 51.1 %) 2.2 L Monocytes % (1.7 - 9.3 %) 1.6 L Eosinophils % (0 - 5 %) 0 Basophils % (0.0 - 2.0 %) 0 Absolute Granulocytes (1.4 - 6.5 /CUMM) 17.8 H Absolute Lymphocytes (1.2 - 3.4 /CUMM) 0.4 L Absolute Monocytes (0.10 - 0.60 /CUMM) 0.3 Absolute Eosinophils (0.0 - 0.7 /CUMM) 0 Absolute Basophils (0.0 - 0.2 /CUMM) 0 PUBS MCHC (33.0 - 37.0 G/DL) 32.0 L Miscellaneous Phlebotomy Draw Site RIGHT BRACHIAL 05/19 05/19 1430 1430 Chemistry Sodium (137 - 145 mmol/L) 143 Potassium (3.5 - 5.1 mmol/L) 4.7 Chloride (98 - 107 mmol/L) 101 Carbon Dioxide (22 - 30 mmol/L) 32 H Anion Gap (5 - 16) 10 BUN (7 - 17 mg/dL) 52 H Creatinine (0.5 - 1.0 mg/dL) 1.6 H Estimated GFR (>60 ml/min) 31 L BUN/Creatinine Ratio (7 - 25 %) 32.5 H Lactic Acid (0.7 - 2.1 mmol/L) 1.2 Troponin I (< 0.11 ng/ml) Cancelled 0.17 *H Cortisol PM Sample (1.7 - 14.1) 16.6 H Hematology CBC w Diff NO MAN DIFF REQ WBC (4.8 - 10.8 /CUMM) 15.0 H RBC (4.20 - 5.40 /CUMM) 3.66 L Hgb (12.0 - 16.0 G/DL) 10.9 L Hct (37 - 47 %) 33.6 L MCV (81.0 - 99.0 FL) 91.8 MCH (27.0 - 31.0 PG) 29.7 RDW (11.5 - 14.5 %) 21.8 H Plt Count (130 - 400 /CUMM) 21 *L MPV (7.4 - 10.4 FL) 9.3 Gran % (42.2 - 75.2 %) 95.1 H Lymphocytes % (20.5 - 51.1 %) 2.1 L Monocytes % (1.7 - 9.3 %) 2.7 Eosinophils % (0 - 5 %) 0 Basophils % (0.0 - 2.0 %) 0.1 Absolute Granulocytes (1.4 - 6.5 /CUMM) 14.2 H Absolute Lymphocytes (1.2 - 3.4 /CUMM) 0.3 L Absolute Monocytes (0.10 - 0.60 /CUMM) 0.4 Absolute Eosinophils (0.0 - 0.7 /CUMM) 0 Absolute Basophils (0.0 - 0.2 /CUMM) 0 PUBS MCHC (33.0 - 37.0 G/DL) 32.3 L 05/19 05/19 05/19 05/19 1425 1047 0600 0554 Blood Gas pH (7.35 - 7.45 PH) 7.38 pCO2 (35 - 45 TORR) 48 H pO2 (80 - 100 TORR) 53 L HCO3 (21 - 28 MEQ/L) 28 ABG O2 Sat (Measured) (>96.0 %) 84.0 L P-50 (Temp Corrected) N Carboxyhemoglobin (1.5 - 5.0 %) 1.5 O2 Concentration % 6L Temperature (97.0 - 100.0 FARH) 99.8 O2 Delivery Method N/C Chemistry Lactic Acid Cancelled Troponin I (< 0.11 ng/ml) 0.14 *H Cancelled Miscellaneous Phlebotomy Draw Site LEFT BRACH 05/19 05/19 0554 0554 Chemistry Estimated GFR Cancelled Cancelled 05/19 05/19 0554 0526 Chemistry Sodium (137 - 145 mmol/L) 142 Potassium (3.5 - 5.1 mmol/L) 5.1 Chloride (98 - 107 mmol/L) 102 Carbon Dioxide (22 - 30 mmol/L) 30 Anion Gap (5 - 16) 10 BUN (7 - 17 mg/dL) 56 H Creatinine (0.5 - 1.0 mg/dL) 1.3 H Estimated GFR (>60 ml/min) 39 L BUN/Creatinine Ratio (7 - 25 %) 43.1 H Troponin I (< 0.11 ng/ml) 0.12 *H Cif-Z-Gfufexcsqdx Pept (<125 pg/mL) 9630 H Hematology CBC w Diff MAN DIFF ORDERED WBC (4.8 - 10.8 /CUMM) 13.6 H RBC (4.20 - 5.40 /CUMM) 3.94 L Hgb (12.0 - 16.0 G/DL) 11.7 L Hct (37 - 47 %) 36.6 L MCV (81.0 - 99.0 FL) 93.1 MCH (27.0 - 31.0 PG) 29.7 RDW (11.5 - 14.5 %) 21.6 H Plt Count (130 - 400 /CUMM) 23 *L MPV (7.4 - 10.4 FL) 10.1 Gran % (42.2 - 75.2 %) 91.0 H Lymphocytes % (20.5 - 51.1 %) 3.5 L Monocytes % (1.7 - 9.3 %) 5.3 Eosinophils % (0 - 5 %) 0 Basophils % (0.0 - 2.0 %) 0.2 Absolute Granulocytes (1.4 - 6.5 /CUMM) 12.4 H Segmented Neutrophils (42.2 - 75.2 %) 86 H Absolute Lymphocytes (1.2 - 3.4 /CUMM) 0.5 L Lymphocytes (20.5 - 51.1 %) 3 L Monocytes (1.7 - 9.3 %) 11 H Absolute Monocytes (0.10 - 0.60 /CUMM) 0.7 H Absolute Eosinophils (0.0 - 0.7 /CUMM) 0 Absolute Basophils (0.0 - 0.2 /CUMM) 0 Platelet Estimate (ADEQUATE) DECREASED Polychromasia 1+ Hypochromic-Microcytic 1+ Poikilocytosis 1+ Ovalocytes 1+ PUBS MCHC (33.0 - 37.0 G/DL) 32.0 L Other Body Source Fld Total RBCs Counted (%) 100 Urines Urinalysis LIGHT H Urine Color (YEL,AMB,STR) YEL Urine Clarity (CLEAR) CLEAR Urine pH (5.0 - 8.0) 6.0 Ur Specific [place] (1.001 - 1.035) 1.020 Urine Protein (NEG,<30 MG/DL) 30 H Urine Ketones (NEG) NEG Urine Nitrite (NEG) NEG Urine Bilirubin (NEG) NEG Urine Urobilinogen (0.1 - 1.0 EU/dl) 0.2 Ur Leukocyte Esterase (NEG) NEG Ur Microscopic SEDIMENT EXAMINED Urine RBC (0 - 5 /HPF) 25-50 H Urine WBC (0 - 2 /HPF) 1-3 H Ur Epithelial Cells (NONE,FEW) FEW Hyaline Casts (0/LPF) 3-5 H Urine Mucus (FEW,NONE) FEW Urine Hemoglobin (NEG) MOD H Urine Glucose (N MG/DL) NEG 05/19 05/19 05/18 0254 0103 2250 Chemistry Sodium (137 - 145 mmol/L) 139 Potassium (3.5 - 5.1 mmol/L) 5.4 H Chloride (98 - 107 mmol/L) 101 Carbon Dioxide (22 - 30 mmol/L) 29 Anion Gap (5 - 16) 9 BUN (7 - 17 mg/dL) 55 H Creatinine (0.5 - 1.0 mg/dL) 1.3 H Estimated GFR (>60 ml/min) 39 L BUN/Creatinine Ratio (7 - 25 %) 42.3 H Glucose (65 - 99 mg/dL) 143 H Lactic Acid Cancelled Cancelled Calcium (8.4 - 10.2 mg/dL) 8.3 L Magnesium (1.6 - 2.3 mg/dL) 2.2 Total Bilirubin (0.2 - 1.3 mg/dL) 0.8 Direct Bilirubin (< 0.4 mg/dL) 0.3 AST (14 - 36 U/L) 13 L ALT (9 - 52 U/L) 47 Alkaline Phosphatase (<127 U/L) 48 Troponin I (< 0.11 ng/ml) 0.10 Atk-F-Ogrscccjyzu Pept (<125 pg/mL) 9830 H Total Protein (6.3 - 8.2 g/dL) 4.8 L Albumin (3.5 - 5.0 g/dL) 2.6 L Amylase (30 - 110 U/L) < 30 L Lipase (23 - 300 U/L) 40 Coagulation PT (9.4 - 12.5 SEC) 12.1 INR (0.90 - 1.19) 1.15 APTT (25 - 37 SEC) 25 D-Dimer High Sensitivty (0 - 243 ng/ml) 303 H 05/18 05/18 2219 2210 Blood Gas pH (7.35 - 7.45 PH) 7.45 pCO2 (35 - 45 TORR) 37 pO2 (80 - 100 TORR) 54 L HCO3 (21 - 28 MEQ/L) 25 ABG O2 Sat (Measured) (>96.0 %) 86.0 L P-50 (Temp Corrected) N Carboxyhemoglobin (1.5 - 5.0 %) 1.4 L O2 Concentration % R/A Temperature (97.0 - 100.0 FARH) 99.4 Chemistry Lactic Acid (0.7 - 2.1 mmol/L) 1.2 Hematology CBC w Diff NO MAN DIFF REQ WBC (4.8 - 10.8 /CUMM) 11.0 H RBC (4.20 - 5.40 /CUMM) 4.46 Hgb (12.0 - 16.0 G/DL) 13.4 Hct (37 - 47 %) 41.8 MCV (81.0 - 99.0 FL) 93.6 MCH (27.0 - 31.0 PG) 30.0 RDW (11.5 - 14.5 %) 21.3 H Plt Count (130 - 400 /CUMM) 44 L MPV (7.4 - 10.4 FL) 8.8 Gran % (42.2 - 75.2 %) 94.6 H Lymphocytes % (20.5 - 51.1 %) 2.2 L Monocytes % (1.7 - 9.3 %) 3.0 Eosinophils % (0 - 5 %) 0.1 Basophils % (0.0 - 2.0 %) 0.1 Absolute Granulocytes (1.4 - 6.5 /CUMM) 10.4 H Absolute Lymphocytes (1.2 - 3.4 /CUMM) 0.2 L Absolute Monocytes (0.10 - 0.60 /CUMM) 0.3 Absolute Eosinophils (0.0 - 0.7 /CUMM) 0 Absolute Basophils (0.0 - 0.2 /CUMM) 0 PUBS MCHC (33.0 - 37.0 G/DL) 32.0 L Miscellaneous Phlebotomy Draw Site LEFT RADIAL Diagnostic Data EKG Results rapid AF, small inferior q waves, no acute ST abnormalities, unchanged CXR Results CXR, CTA chest, CT head results reviewed Assessment/Plan Assessment/Plan 1. Acute hypoxic respiratory failure secondary to pneumonia 2. Encephalopathy likely metaboic due to infection/hypoxia/hypotension 3. Rapid atrial fibrillation. Patient is known to have rapid AF with difficult to control ventricular rate, acceptable rates 90-130 bpm. 4. 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 Possible LE cellulitis 6. Thrombocytopenia. patient responded to steroids last admission and was started on low dose Eliquis after platelet count increased to 80,000. Now Plt count very low again despite prednisone 7. PVD with severe left SFA disease, no surgical intervention as per vascular surgery Plan: continue levophed iv fluids 1 L bolus, than maintainance 100 ml/hour overnight broad spectrum atb echo today troponinx3 q 8 hours (borderline elevated troponin likely due to demand ischemia ) iv digoxin 0.25 mg now (she received digoxin iv earlier today). If Hr remains teressa 130 bpm, will start iv amiodarone (150 mg bolus over 30 min, than 1 mg/hr overnight). hematology consult no anticoagulation for now due to low platelet count hold metoprolol and cardizem due to previous hypotension neurology consult if neuro status not improved Consult Acknowledgment - Thank you for your consult request.
[2017-05-20] VITALS: BP 114/74
[2017-05-20 03:39] LABS: ABSOLUTE BASOPHIL COUNT 0 /CUMM (0.0-0.2); ABSOLUTE EOSINOPHIL COUNT 0 /CUMM (0.0-0.7); ABSOLUTE GRANULOCYTE CT 14.6 /CUMM (1.4-6.5); ABSOLUTE LYMPH COUNT 0.4 /CUMM (1.2-3.4); ABSOLUTE MONOCYTE COUNT 0.3 /CUMM (0.10-0.60); BASOPHIL % 0.1 % (0.0-2.0); EOSINOPHIL % 0 % (0-5); HEMATOCRIT 33.5 % (37-47); MEAN CORPUSCULAR HGB 29.9 PG (27.0-31.0); MEAN CORPUSCULAR HGB CONC 32.5 G/DL (33.0-37.0); MEAN PLATELET VOLUME 9.8 FL (7.4-10.4); RED BLOOD CELL CT 3.65 /CUMM (4.20-5.40); WHITE BLOOD CELL COUNT 15.4 /CUMM (4.8-10.8)
[2017-05-20 04:31] LABS: PLATELET COUNT 25 /CUMM (130-400)
--- NOTE | 2017-05-20 06:59 | Cons- CRCU ---
General Information and HPI Allergies/Medications Allergies: Coded Allergies: codeine (SOB 07/09/15) Home Med List: Apixaban (Eliquis) 2.5 MG TABLET 2.5 MG PO BID Atrial Fibrilliation Atorvastatin Calcium (Lipitor) 80 MG TABLET 1 TAB PO DAILY CHOLESTEROL ( Reported) Calcium Carbonate/Vitamin D3 (Caltrate 600 + D Tablet) 600 MG-800 TABLET 1 TAB PO DAILY SUPPLEMENT (Reported) Carbidopa/Levodopa (Carbidopa-Levo ER 50-200 Tab) 50 MG-200 MG TABLET.ER 1 TAB PO DAILY RESTLESS LEGS Cyanocobalamin (Vitamin B-12) 1,000 MCG TABLET 1 TAB PO DAILY VITAMIN SUPPORT (Reported) diltiaZEM HCl (Diltiazem 24HR Cd) 360 MG CAP.ER.24H 1 TAB PO DAILY Heart rate Duloxetine HCl 60 MG CAPSULE.DR 1 CAP PO DAILY PAIN (Reported) Ferrous Sulfate 325 MG (65 MG IRON) TABLET.DR 325 MG PO BID supplement Folic Acid 1 MG TABLET 1 MG PO DAILY supplement Furosemide 20 MG TABLET 1 TAB PO DAILY WATER RETENTION (Reported) Lorazepam 1 MG TABLET 2 TAB PO QPM ANXIETY (Reported) Lorazepam 1 MG TABLET 1 TAB PO DAILY ANXIETY (Reported) Magnesium Oxide 400 MG TABLET 1 TAB PO DAILY SUPPLEMENT (Reported) Metformin HCl 1,000 MG TABLET 1 TAB PO DAILY DIABETES (Reported) Metoprolol Tartrate 100 MG TABLET 2 TAB PO BID HEART Mirtazapine 15 MG TABLET 1 TAB PO QPM SLEEP (Reported) Omeprazole 20 MG CAPSULE.DR 40 MG PO DAILY AC STOMACH HEALTH Prednisone 50 MG TABLET 1 TAB PO DAILY Thrombocytopenia Pregabalin (Lyrica) 75 MG CAPSULE 150 MG PO AT BEDTIME RESTLESS LEGS Past History Travel History Traveled to [place] past 21 day No Medical History Neurological: restless leg syndrome, DIABETIC NEUROPATHY EENT: NONE Cardiovascular: hypertension, hyperlipidemia, myocardial infarction, CARDIAC STENTS Respiratory: NONE Gastrointestinal: constipation Hepatic: NONE Renal: NONE Musculoskeletal: falls, BILAT SHOULDER REPAIR LT KNEE REPAIR Psychiatric: anxiety Endocrine: diabetes Blood Disorders: thrombocytopenia 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 Extended Care Facility Services at Home: None Smoking Status: Former Smoker ETOH Use: occasional use Illicit Drug Use: denies illicit drug use Functional Ability ADLs Independent: dressing, eating, toileting, bathing. Ambulation: independent IADLs Independent: shopping, housework, finances, food prep, telephone, transportation , medication admin. Exam & Diagnostic Data Last 24 Hrs of Vital Signs/I&O Vital Signs Date Time Temp Pulse Resp B/P B/P Pulse O2 O2 Flow FiO2 Mean Ox Delivery Rate 05/20 0516 116 108/65 05/20 0507 100 05/20 0400 96 Ventilator 60% 05/20 0343 60 05/20 0120 98 115/66 05/20 0055 60 05/20 0000 99.7 114 14 114/74 94 Ventilator 60% 05/20 0000 94 Ventilator 60% 05/19 2212 60 05/19 2210 117 108/83 05/19 2000 98 Ventilator 60% 05/19 1953 138 119/77 05/19 1800 60 05/19 1721 97.7 121 24 117/71 95 Nasal 4.0L Cannula 05/19 1644 Nasal 6.0L Cannula 05/19 1338 99.8 109 14 111/51 90 Nasal 2.0L Cannula 05/19 1138 99.0 133 20 125/69 05/19 1047 99.0 124 20 125/69 96 Nasal 2.0L Cannula 05/19 1019 98.4 122 18 159/69 05/19 1014 98.4 122 18 159/69 98 Nasal 2.0L Cannula 05/19 1013 98.6 122 18 159/69 98 Nasal 2.0L Cannula 05/19 0855 96 Nasal 2.0L Cannula 05/19 0850 96 Nasal 2.0L Cannula 05/19 0707 98.0 120 22 115/78 Intake & Output 05/20 0800 05/20 0000 05/19 1600 Intake Total 995 1554 Output Total 280 290 Balance 715 1264 Intake, IV 995 1554 Output, Urine 280 290 Patient 255 lb 200 lb Weight Weight Bed scale Bed scale Reported by Patient Measurement Method Assessment/Plan Consult Acknowledgment - Thank you for your consult request.
--- NOTE | 2017-05-20 07:37 | PN- Cardiology ---
Subjective Subjective: Events noted-patient was intubated last night She remains on levophed (lower dose) Responds to tactile stimuli only Review of Systems: ROS not obtainable (intubated, not responsive) Objective Vital Signs and I&Os Vital Signs Date Time Temp Pulse Resp B/P B/P Pulse O2 O2 Flow FiO2 Mean Ox Delivery Rate 05/20 0516 116 108/65 05/20 0507 100 05/20 0400 96 Ventilator 60% 05/20 0343 60 05/20 0120 98 115/66 05/20 0055 60 05/20 0000 99.7 114 14 114/74 94 Ventilator 60% 05/20 0000 94 Ventilator 60% 05/19 2212 60 05/19 2210 117 108/83 05/19 1999 98 Ventilator 60% 05/19 1953 138 119/77 05/19 1800 60 05/19 1721 97.7 121 24 117/71 95 Nasal 4.0L Cannula 05/19 1644 Nasal 6.0L Cannula 05/19 1338 99.8 109 14 111/51 90 Nasal 2.0L Cannula 05/19 1138 99.0 133 20 125/69 05/19 1047 99.0 124 20 125/69 96 Nasal 2.0L Cannula 05/19 1019 98.4 122 18 159/69 05/19 1014 98.4 122 18 159/69 98 Nasal 2.0L Cannula 05/19 1013 98.6 122 18 159/69 98 Nasal 2.0L Cannula 05/19 0855 96 Nasal 2.0L Cannula 05/19 0850 96 Nasal 2.0L Cannula Intake & Output 05/20 0800 05/20 0000 05/19 1600 05/19 0800 05/19 0000 05/18 1600 Intake Total 995 1554 0 Output Total 280 290 Balance 715 1264 0 Intake, IV 995 1554 Intake, Oral 0 Output, Urine 280 290 Patient 255 lb 200 lb 200 lb Weight Weight Bed scale Bed scale Reported by Patient Estimated Measurement Method Physical Exam: intubated respons to painful stimuli (withdrawal reaction) HEENT-pupils 1 mm, symmetrical, sluggish reaction to light mouth-dry tongue Neck-JVP unable to assess (obese), right IJ in place,no bruit Lungs-decreased BS at both bases with few bilateral rhonchi Abdomen-soft, not distended, BS+, no organomegaly Extremities-trace bilateral edema, stasis dermatitis, more on the left no cyanosis Neuro-non focal, responds to painful stimuli only Vascular-diminished bilateral pedal pulses, no carotid bruit Current Medications: Current Medications Sig/Ric Start time Last Medication Dose Route Stop Time Status Admin Acetaminophen 650 MG Q6P PRN 05/19 0300 AC PO Acetaminophen 1,000 MG Q6P PRN 05/19 0300 AC IV Atorvastatin Calcium 80 MG 1700 05/19 1700 DC PO Ceftazidime 1,000 MG Q12 05/19 1000 AC 05/19 IV 2129 Digoxin 0.25 MG ONCE ONE 05/20 1000 AC IV 05/20 1001 Digoxin 0.25 MG ONCE ONE 05/20 0130 DC IV 05/20 0131 Digoxin 0.25 MG ONCE ONE 05/19 1930 DC 05/19 IV 05/19 1931 1953 Digoxin 0.25 MG ONCE ONE 05/19 1615 DC 05/19 IV 05/19 1616 1644 Diltiazem HCl 360 MG DAILY 05/19 1000 DC 05/19 PO 0824 Doxycycline Hyclate 100 MG Q12 05/19 2200 AC 05/19 Dextrose/Water 100 ML IV 2129 Folic Acid 1 MG DAILY 05/19 1000 DC 05/19 PO 1019 Furosemide 20 MG DAILY 05/19 1000 DC 05/19 IV 1013 Hydrocortisone 100 MG Q8 05/19 1639 AC 05/20 Sodium Succinate IV 0515 Lorazepam 0 .STK-MED ONE 05/19 1004 DC PO Lorazepam 1 MG DAILY 05/19 1000 DC 05/19 PO 1019 Metoprolol Tartrate 0 .STK-MED ONE 05/19 1141 DC IV Metoprolol Tartrate 5 MG ONCE ONE 05/19 1115 DC 05/19 IV 05/19 1116 1138 Metoprolol Tartrate 200 MG BID 05/19 1000 DC 05/19 PO 1019 Mirtazapine 15 MG QPM 05/19 2200 DC PO Naloxone HCl 0.4 MG ONCE ONE 05/19 1615 DC 05/19 IM 05/19 1616 1637 Non-Formulary 0 SEE ADMIN CRITERIA 05/20 0615 CAN Medication ANY Norepinephrine 4 MG Q6H 05/19 2200 AC 05/20 Dextrose/Water 250 ML IV 0516 Norepinephrine 4 MG Q24H 05/19 1630 DC 05/19 Dextrose/Water 250 ML IV 05/20 0229 1637 Omeprazole 40 MG DAILY 05/19 0700 DC 05/19 PO 0604 Pantoprazole Sodium 40 MG DAILY 05/20 0030 AC 05/20 IV 0105 Prednisone 50 MG DAILY 05/19 1000 DC 05/19 PO 1019 Pregabalin 150 MG AT BEDTIME 05/19 2200 DC PO Propofol 1,000 MG Q24H 05/20 0615 AC 05/20 N/A 1 UNIT IV 0614 Sodium Chloride 1,000 ML Q10H 05/19 1915 AC 05/20 IV 05/20 1514 0600 Vancomycin HCl 1,000 MG DAILY 05/19 1000 AC 05/19 Sodium Chloride 250 ML IV 1013 Results Last 48 Hrs of Labs/Mics: Laboratory Tests 05/20/17 0445: pH 7.42, pCO2 38, pO2 40 *L, HCO3 24, ABG O2 Sat (Measured) 66.0 L, P-50 (Temp Corrected) Y, Carboxyhemoglobin 0.3 L, O2 Concentration % 60%, Temperature 98.8 , Respiration Rate 14, O2 Delivery Method ESPRIT, Vent Mode AC, Expiratory Pressure 5, Tidal Volume 550, Phlebotomy Draw Site RIGHT BRACHIAL 05/20/17 0300: Troponin I 0.23 *H 05/20/17 0300: Anion Gap 14, Estimated GFR 33 L, Glucose 122 H, Calcium 7.9 L, Phosphorus 5.1 H, Magnesium 2.0, Total Bilirubin 0.7, AST 20, ALT 41, Albumin 2.2 L, CBC w Diff MAN DIFF ORDERED, RBC 3.65 L, MCV 92.0, MCH 29.9, RDW 22.0 H, MPV 9.8, Gran % 95.0 H, Lymphocytes % 2.8 L, Monocytes % 2.1, Eosinophils % 0, Basophils % 0.1, Absolute Granulocytes 14.6 H, Segmented Neutrophils 95 H, Absolute Lymphocytes 0.4 L, Lymphocytes 5 L, Absolute Monocytes 0.3, Absolute Eosinophils 0, Absolute Basophils 0, Platelet Estimate VERIFIED BY SMEAR, Polychromasia 1+, Poikilocytosis 1+, Anisocytosis 1+, Rush Cells 1+, Elliptocytes 1+, PUBS MCHC 32.5 L 05/19/172231: Lactic Acid Cancelled 05/19/172034: Troponin I 0.19 *H 01/15/18 2000: Lactic Acid 1.4 05/19/17 1930: pH 7.59 H, pCO2 25 L, pO2 93, HCO3 23, ABG O2 Sat (Measured) 97.0, P-50 (Temp Corrected) N, Carboxyhemoglobin 0.5 L, O2 Concentration % 60%, Temperature 98.9 , Respiration Rate 20, O2 Delivery Method ESPRIT VENT, Vent Mode AC, Expiratory Pressure 5, Tidal Volume 550, Phlebotomy Draw Site RIGHT BRACHIAL 05/19/17 1750: Anion Gap 11, Estimated GFR 33 L, Glucose 93, Calcium 7.8 L, Phosphorus 4.6 H , Magnesium 2.0, Total Bilirubin 0.5, AST 21, ALT 37, Albumin 2.2 L, CBC w Diff NO MAN DIFF REQ, RBC 3.64 L, MCV 93.3, MCH 29.8, RDW 21.5 H, MPV 10.0, Gran % 96.2 H, Lymphocytes % 2.2 L, Monocytes % 1.6 L, Eosinophils % 0, Basophils % 0, Absolute Granulocytes 17.8 H, Absolute Lymphocytes 0.4 L, Absolute Monocytes 0.3, Absolute Eosinophils 0, Absolute Basophils 0, PUBS MCHC 32.0 L 05/19/17 1620: pH 7.37, pCO2 49 H, pO2 83, HCO3 28, ABG O2 Sat (Measured) 94.0 L, P-50 (Temp Corrected) N, Carboxyhemoglobin 0.7 L, O2 Concentration % 6L, Temperature 99.0, O2 Delivery Method NC, Phlebotomy Draw Site RIGHT BRACHIAL 05/19/17 1430: Troponin I Cancelled 05/19/17 1430: Anion Gap 10, Estimated GFR 31 L, BUN/Creatinine Ratio 32.5 H, Lactic Acid 1.2 , Troponin I 0.17 *H, Cortisol PM Sample 16.6 H, CBC w Diff NO MAN DIFF REQ, RBC 3.66 L, MCV 91.8, MCH 29.7, RDW 21.8 H, MPV 9.3, Gran % 95.1 H, Lymphocytes % 2.1 L, Monocytes % 2.7, Eosinophils % 0, Basophils % 0.1, Absolute Granulocytes 14.2 H, Absolute Lymphocytes 0.3 L, Absolute Monocytes 0.4, Absolute Eosinophils 0, Absolute Basophils 0, PUBS MCHC 32.3 L 05/19/17 1425: pH 7.38, pCO2 48 H, pO2 53 L, HCO3 28, ABG O2 Sat (Measured) 84.0 L, P-50 ( Temp Corrected) N, Carboxyhemoglobin 1.5, O2 Concentration % 6L, Temperature 99.8, O2 Delivery Method N/C, Phlebotomy Draw Site LEFT BRACH 05/19/17 1047: Troponin I 0.14 *H 05/19/17 0600: Troponin I Cancelled 05/19/17 0554: Lactic Acid Cancelled 05/19/17 0554: Estimated GFR Cancelled 05/19/17 0554: Estimated GFR Cancelled 05/19/17 0554: Anion Gap 10, Estimated GFR 39 L, BUN/Creatinine Ratio 43.1 H, Troponin I 0.12 *H, Ufm-C-Kuanrbupzoi Pept 9630 H, CBC w Diff MAN DIFF ORDERED, RBC 3.94 L, MCV 93.1, MCH 29.7, RDW 21.6 H, MPV 10.1, Gran % 91.0 H, Lymphocytes % 3.5 L, Monocytes % 5.3, Eosinophils % 0, Basophils % 0.2, Absolute Granulocytes 12.4 H , Segmented Neutrophils 86 H, Absolute Lymphocytes 0.5 L, Lymphocytes 3 L, Monocytes 11 H, Absolute Monocytes 0.7 H, Absolute Eosinophils 0, Absolute Basophils 0, Platelet Estimate DECREASED, Polychromasia 1+, Hypochromic- Microcytic 1+, Poikilocytosis 1+, Ovalocytes 1+, PUBS MCHC 32.0 L, Fld Total RBCs Counted 100 05/19/17 0526: Urinalysis LIGHT H, Urine Color YEL, Urine Clarity CLEAR, Urine pH 6.0, Ur Specific [place] 1.020, Urine Protein 30 H, Urine Ketones NEG, Urine Nitrite NEG, Urine Bilirubin NEG, Urine Urobilinogen 0.2, Ur Leukocyte Esterase NEG, Ur Microscopic SEDIMENT EXAMINED, Urine RBC 25-50 H, Urine WBC 1-3 H, Ur Epithelial Cells FEW, Hyaline Casts 3-5 H, Urine Mucus FEW, Urine Hemoglobin MOD H, Urine Glucose NEG 05/19/17 0254: Lactic Acid Cancelled 05/19/17 0103: Lactic Acid Cancelled 05/18/17 2250: Anion Gap 9, Estimated GFR 39 L, BUN/Creatinine Ratio 42.3 H, Glucose 143 H, Calcium 8.3 L, Magnesium 2.2, Total Bilirubin 0.8, Direct Bilirubin 0.3, AST 13 L, ALT 47, Alkaline Phosphatase 48, Troponin I 0.10, Ujt-X-Asjtjuoczif Pept 9830 H, Total Protein 4.8 L, Albumin 2.6 L, Amylase < 30 L, Lipase 40, PT 12.1, INR 1.15, APTT 25, D-Dimer High Sensitivty 303 H 05/18/17 2219: Lactic Acid 1.2, CBC w Diff NO MAN DIFF REQ, RBC 4.46, MCV 93.6, MCH 30.0, RDW 21.3 H, MPV 8.8, Gran % 94.6 H, Lymphocytes % 2.2 L, Monocytes % 3.0, Eosinophils % 0.1, Basophils % 0.1, Absolute Granulocytes 10.4 H, Absolute Lymphocytes 0.2 L, Absolute Monocytes 0.3, Absolute Eosinophils 0, Absolute Basophils 0, PUBS MCHC 32.0 L 05/18/17 2210: pH 7.45, pCO2 37, pO2 54 L, HCO3 25, ABG O2 Sat (Measured) 86.0 L, P-50 (Temp Corrected) N, Carboxyhemoglobin 1.4 L, O2 Concentration % R/A, Temperature 99.4 , Phlebotomy Draw Site LEFT RADIAL Microbiology 05/19 173 URINE ROUT: Legionella Antigen - COMP 05/19 173 URINE ROUT: Streptococcus pneumoniae Antigen (M - COMP 05/19 1040 NASOPHARYN: Influenza Virus A & B Rapid Smear - COMP Recent Imaging Studies: CXR, CTA chest, CT head results noted telemetry-AF, rate 100-130 bpm Assessment/Plan Assessment/Plan 1. Acute hypoxic respiratory failure/septic shock likely due to pneumonia, required intubation, on 60% oxygen Blood cultures so fat negative. 2. Encephalopathy likely metaboic due to infection/hypoxia/hypotension 3. Rapid atrial fibrillation. Patient is known to have rapid AF with difficult to control ventricular rate, acceptable rates 90-130 bpm. Good response so far to iv digoxin. 4. 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 Echo done last night, preliminary normal LVEF. 5. Possible LE cellulitis 6. Thrombocytopenia. patient responded to steroids last admission and was started on low dose Eliquis after platelet count increased to 80,000. Now Plt count very low again despite prednisone 7. PVD with severe left SFA disease, no surgical intervention as per vascular surgery 8. Abnormal troponin likely due to demand ischemia/hypoxia. Plan: continue levophed, if SBP above 100, wean off slowly continue iv fluids repeat CXR continue broad spectrum atb, f/u ID recommendations repeat troponin today am continue iv digoxin 0.25 mg qd no need for iv Amiodarone unless HR above 130 bpm hematology consult no anticoagulation for now due to low platelet count hold metoprolol and cardizem due to previous hypotension neurology consult if neuro status not improved Critical care statement: Patient is critically ill as indicated by the following. Acute respiratory failure, with hypoxia, septic shock, unresponsivness, rapid atrial fibrillation. The patient required 45 minutes of my undivided attention in the past 24 hours for one of the previously noted life-threatening diagnoses. Criticale care interventions have including monitoring and adjustment of pressors, controlling rapid heart rate, treatment of shock and ongoing metabolic managment. Continue telemetry? Yes
--- NOTE | 2017-05-20 07:54 | Cons- Hematology ---
General Information and HPI Consulting Request Date of Consult: 05/20/17 Requested By: Gokul Forde MD Reason for Consult: Thrombocytopenia Source of Information: patient, old records Exam Limitations: clinical condition, intubation History of Present Illness: Ms. 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 She has been having new cough a few days ago. She has new thrombocytopenia recently and was started on prednisone 100 mg daily last week and increased to 150 mg daily on 05/16 when platelet count did not respond and remained around 21,000. On admission, she was noted to be febrile. She subsequently became hypotensive and unresponsive. She was given IVF and transferred to ICU. She was intubated and started on Levophed. She has been placed on hydrocortione 100 mg every 8 hours. She is also on empiric antibiotics, vancomycin, doxycycline, and ceftazidime. Allergies/Medications Allergies: Coded Allergies: codeine (SOB 07/09/15) Home Med List: Apixaban (Eliquis) 2.5 MG TABLET 2.5 MG PO BID Atrial Fibrilliation Atorvastatin Calcium (Lipitor) 80 MG TABLET 1 TAB PO DAILY CHOLESTEROL ( Reported) Calcium Carbonate/Vitamin D3 (Caltrate 600 + D Tablet) 600 MG-800 TABLET 1 TAB PO DAILY SUPPLEMENT (Reported) Carbidopa/Levodopa (Carbidopa-Levo ER 50-200 Tab) 50 MG-200 MG TABLET.ER 1 TAB PO DAILY RESTLESS LEGS Cyanocobalamin (Vitamin B-12) 1,000 MCG TABLET 1 TAB PO DAILY VITAMIN SUPPORT (Reported) diltiaZEM HCl (Diltiazem 24HR Cd) 360 MG CAP.ER.24H 1 TAB PO DAILY Heart rate Duloxetine HCl 60 MG CAPSULE.DR 1 CAP PO DAILY PAIN (Reported) Ferrous Sulfate 325 MG (65 MG IRON) TABLET.DR 325 MG PO BID supplement Folic Acid 1 MG TABLET 1 MG PO DAILY supplement Furosemide 20 MG TABLET 1 TAB PO DAILY WATER RETENTION (Reported) Lorazepam 1 MG TABLET 2 TAB PO QPM ANXIETY (Reported) Lorazepam 1 MG TABLET 1 TAB PO DAILY ANXIETY (Reported) Magnesium Oxide 400 MG TABLET 1 TAB PO DAILY SUPPLEMENT (Reported) Metformin HCl 1,000 MG TABLET 1 TAB PO DAILY DIABETES (Reported) Metoprolol Tartrate 100 MG TABLET 2 TAB PO BID HEART Mirtazapine 15 MG TABLET 1 TAB PO QPM SLEEP (Reported) Omeprazole 20 MG CAPSULE.DR 40 MG PO DAILY AC STOMACH HEALTH Prednisone 50 MG TABLET 1 TAB PO DAILY Thrombocytopenia Pregabalin (Lyrica) 75 MG CAPSULE 150 MG PO AT BEDTIME RESTLESS LEGS Current Medications: Current Medications Sig/Ric Start time Last Medication Dose Route Stop Time Status Admin Acetaminophen 650 MG Q6P PRN 05/19 0300 AC PO Acetaminophen 1,000 MG Q6P PRN 05/19 0300 AC IV Atorvastatin Calcium 80 MG 1700 05/19 1700 DC PO Ceftazidime 1,000 MG Q12 05/19 1000 AC 05/19 IV 2129 Digoxin 0.25 MG ONCE ONE 05/20 1000 AC 05/20 IV 05/20 1001 0804 Digoxin 0.25 MG ONCE ONE 05/20 0130 DC IV 05/20 0131 Digoxin 0.25 MG ONCE ONE 05/19 1930 DC 05/19 IV 05/19 1931 1953 Digoxin 0.25 MG ONCE ONE 05/19 1615 DC 05/19 IV 05/19 1616 1644 Diltiazem HCl 360 MG DAILY 05/19 1000 DC 05/19 PO 0824 Doxycycline Hyclate 100 MG Q12 05/19 2200 AC 05/19 Dextrose/Water 100 ML IV 2129 Folic Acid 1 MG DAILY 05/19 1000 DC 05/19 PO 1019 Furosemide 20 MG DAILY 05/19 1000 DC 05/19 IV 1013 Hydrocortisone 100 MG Q8 05/19 1639 AC 05/20 Sodium Succinate IV 0515 Lorazepam 0 .STK-MED ONE 05/19 1004 DC PO Lorazepam 1 MG DAILY 05/19 1000 DC 05/19 PO 1019 Metoprolol Tartrate 0 .STK-MED ONE 05/19 1141 DC IV Metoprolol Tartrate 5 MG ONCE ONE 05/19 1115 DC 05/19 IV 05/19 1116 1138 Metoprolol Tartrate 200 MG BID 05/19 1000 DC 05/19 PO 1019 Mirtazapine 15 MG QPM 05/19 2200 DC PO Naloxone HCl 0.4 MG ONCE ONE 05/19 1615 DC 05/19 IM 05/19 1616 1637 Non-Formulary 0 SEE ADMIN CRITERIA 05/20 0615 CAN Medication ANY Norepinephrine 4 MG Q30H 05/20 0800 AC Dextrose/Water 250 ML IV Norepinephrine 4 MG Q6H 05/19 2200 DC 05/20 Dextrose/Water 250 ML IV 0516 Norepinephrine 4 MG Q24H 05/19 1630 DC 05/19 Dextrose/Water 250 ML IV 05/20 0229 1637 Omeprazole 40 MG DAILY AC 05/19 0700 DC 05/19 PO 0604 Pantoprazole Sodium 40 MG DAILY 05/20 0030 AC 05/20 IV 0806 Prednisone 50 MG DAILY 05/19 1000 DC 05/19 PO 1019 Pregabalin 150 MG AT BEDTIME 05/19 2200 DC PO Propofol 1,000 MG Q24H 05/20 0615 AC 05/20 N/A 1 UNIT IV 0614 Sodium Chloride 1,000 ML Q10H 05/19 1915 AC 05/20 IV 05/20 1514 0600 Vancomycin HCl 1,000 MG DAILY 05/19 1000 AC 05/19 Sodium Chloride 250 ML IV 1013 Review of Systems Review of Systems: Unable to obtain due to intubation Past History Travel History Traveled to [facility] past 21 day No Medical History Neurological: restless leg syndrome, DIABETIC NEUROPATHY EENT: NONE Cardiovascular: hypertension, hyperlipidemia, myocardial infarction, CARDIAC STENTS Respiratory: NONE Gastrointestinal: constipation Hepatic: NONE Renal: NONE Musculoskeletal: falls, BILAT SHOULDER REPAIR LT KNEE REPAIR Psychiatric: anxiety Endocrine: diabetes Blood Disorders: thrombocytopenia Cancer(s): NONE WOOL CLEANER/Reproductive: NONE Other Medical Hx: restless leg syndrome Surgical History Surgical History: L KNEE BOTH SHOULDERS R GREAT TOE AMP BILATERAL SHOULDER SURGERY Family History Relations & Conditions If Any: Relation not specified for: *No pertinent family history Psychosocial History Where Do You Live? Extended Care Facility Services at Home: None Smoking Status: Former Smoker ETOH Use: occasional use Illicit Drug Use: denies illicit drug use Functional Ability ADLs Independent: dressing, eating, toileting, bathing. Ambulation: independent IADLs Independent: shopping, housework, finances, food prep, telephone, transportation , medication admin. Exam & Diagnostic Data Vital Signs and I&O Vital Signs Date Time Temp Pulse Resp B/P B/P Pulse O2 O2 Flow FiO2 Mean Ox Delivery Rate 05/20 0516 116 108/65 05/20 0507 100 05/20 0400 96 Ventilator 60% 05/20 0343 60 05/20 0120 98 115/66 05/20 0055 60 05/20 0000 99.7 114 14 114/74 94 Ventilator 60% 05/20 0000 94 Ventilator 60% 05/19 2212 60 05/19 2210 117 108/83 05/19 1999 98 Ventilator 60% 05/19 1953 138 119/77 05/19 1800 60 05/19 1721 97.7 121 24 117/71 95 Nasal 4.0L Cannula 05/19 1644 Nasal 6.0L Cannula 05/19 1338 99.8 109 14 111/51 90 Nasal 2.0L Cannula 05/19 1138 99.0 133 20 125/69 05/19 1047 99.0 124 20 125/69 96 Nasal 2.0L Cannula 05/19 1019 98.4 122 18 159/69 05/19 1014 98.4 122 18 159/69 98 Nasal 2.0L Cannula 05/19 1013 98.6 122 18 159/69 98 Nasal 2.0L Cannula 05/19 0855 96 Nasal 2.0L Cannula 05/19 0850 96 Nasal 2.0L Cannula Intake & Output 05/20 0800 05/20 0000 05/19 1600 Intake Total 995 1554 Output Total 280 290 Balance 715 1264 Intake, IV 995 1554 Output, Urine 280 290 Patient 115.694 kg 90.718 kg Weight Weight Bed scale Bed scale Reported by Patient Measurement Method Physical Exam General Appearance: intubated Head: atraumatic Eyes: Bilateral: PERRL. Ears, Nose, Throat: normal pharynx Respiratory: chest non-tender, no respiratory distress, rhonchi Cardiovascular: tachycardia, irregularly irregular Gastrointestinal: soft, tenderness (LUQ) Extremities: pelvis stable, inflammation (BLE), swelling, tenderness Neurologic/Psych: awake, alert, oriented x 3 Skin: warm/dry Lymphatic: no anterior cervical doretha Last 48 Hours of Lab Results: Laboratory Tests 05/20 05/20 0445 0300 Blood Gas pH (7.35 - 7.45 PH) 7.42 pCO2 (35 - 45 TORR) 38 pO2 (80 - 100 TORR) 40 *L HCO3 (21 - 28 MEQ/L) 24 ABG O2 Sat (Measured) (>96.0 %) 66.0 L P-50 (Temp Corrected) Y Carboxyhemoglobin (1.5 - 5.0 %) 0.3 L O2 Concentration % 60% Temperature (97.0 - 100.0 FARH) 98.8 Respiration Rate (BPM) 14 O2 Delivery Method ESPRIT Vent Mode AC Expiratory Pressure (CMH2O/P) 5 Tidal Volume (CC) 550 Chemistry Troponin I (< 0.11 ng/ml) 0.23 *H Miscellaneous Phlebotomy Draw Site RIGHT BRACHIAL 05/20 05/19 05/19 0300 2231 2034 Chemistry Sodium (137 - 145 mmol/L) 142 Potassium (3.5 - 5.1 mmol/L) 5.1 Chloride (98 - 107 mmol/L) 104 Carbon Dioxide (22 - 30 mmol/L) 24 Anion Gap (5 - 16) 14 BUN (7 - 17 mg/dL) 56 H Creatinine (0.5 - 1.0 mg/dL) 1.5 H Estimated GFR (>60 ml/min) 33 L Glucose (65 - 99 mg/dL) 122 H Lactic Acid Cancelled Calcium (8.4 - 10.2 mg/dL) 7.9 L Phosphorus (2.5 - 4.5 mg/dL) 5.1 H Magnesium (1.6 - 2.3 mg/dL) 2.0 Total Bilirubin (0.2 - 1.3 mg/dL) 0.7 AST (14 - 36 U/L) 20 ALT (9 - 52 U/L) 41 Troponin I (< 0.11 ng/ml) 0.19 *H Albumin (3.5 - 5.0 g/dL) 2.2 L Hematology CBC w Diff MAN DIFF ORDERED WBC (4.8 - 10.8 /CUMM) 15.4 H RBC (4.20 - 5.40 /CUMM) 3.65 L Hgb (12.0 - 16.0 G/DL) 10.9 L Hct (37 - 47 %) 33.5 L MCV (81.0 - 99.0 FL) 92.0 MCH (27.0 - 31.0 PG) 29.9 RDW (11.5 - 14.5 %) 22.0 H Plt Count (130 - 400 /CUMM) 25 *L MPV (7.4 - 10.4 FL) 9.8 Gran % (42.2 - 75.2 %) 95.0 H Lymphocytes % (20.5 - 51.1 %) 2.8 L Monocytes % (1.7 - 9.3 %) 2.1 Eosinophils % (0 - 5 %) 0 Basophils % (0.0 - 2.0 %) 0.1 Absolute Granulocytes (1.4 - 6.5 /CUMM) 14.6 H Segmented Neutrophils (42.2 - 75.2 %) 95 H Absolute Lymphocytes (1.2 - 3.4 /CUMM) 0.4 L Lymphocytes (20.5 - 51.1 %) 5 L Absolute Monocytes (0.10 - 0.60 /CUMM) 0.3 Absolute Eosinophils (0.0 - 0.7 /CUMM) 0 Absolute Basophils (0.0 - 0.2 /CUMM) 0 Platelet Estimate (ADEQUATE) VERIFIED BY SMEAR Polychromasia 1+ Poikilocytosis 1+ Anisocytosis 1+ [place] Cells 1+ Elliptocytes 1+ PUBS MCHC (33.0 - 37.0 G/DL) 32.5 L 05/19 1930 Blood Gas pH (7.35 - 7.45 PH) 7.59 H pCO2 (35 - 45 TORR) 25 L pO2 (80 - 100 TORR) 93 HCO3 (21 - 28 MEQ/L) 23 ABG O2 Sat (Measured) (>96.0 %) 97.0 P-50 (Temp Corrected) N Carboxyhemoglobin (1.5 - 5.0 %) 0.5 L O2 Concentration % 60% Temperature (97.0 - 100.0 FARH) 98.9 Respiration Rate (BPM) 20 O2 Delivery Method ESPRIT VENT Vent Mode AC Expiratory Pressure (CMH2O/P) 5 Tidal Volume (CC) 550 Chemistry Lactic Acid (0.7 - 2.1 mmol/L) 1.4 Miscellaneous Phlebotomy Draw Site RIGHT BRACHIAL 05/19 05/19 1750 1620 Blood Gas pH (7.35 - 7.45 PH) 7.37 pCO2 (35 - 45 TORR) 49 H pO2 (80 - 100 TORR) 83 HCO3 (21 - 28 MEQ/L) 28 ABG O2 Sat (Measured) (>96.0 %) 94.0 L P-50 (Temp Corrected) N Carboxyhemoglobin (1.5 - 5.0 %) 0.7 L O2 Concentration % 6L Temperature (97.0 - 100.0 FARH) 99.0 O2 Delivery Method NC Chemistry Sodium (137 - 145 mmol/L) 143 Potassium (3.5 - 5.1 mmol/L) 4.8 Chloride (98 - 107 mmol/L) 102 Carbon Dioxide (22 - 30 mmol/L) 31 H Anion Gap (5 - 16) 11 BUN (7 - 17 mg/dL) 55 H Creatinine (0.5 - 1.0 mg/dL) 1.5 H Estimated GFR (>60 ml/min) 33 L Glucose (65 - 99 mg/dL) 93 Calcium (8.4 - 10.2 mg/dL) 7.8 L Phosphorus (2.5 - 4.5 mg/dL) 4.6 H Magnesium (1.6 - 2.3 mg/dL) 2.0 Total Bilirubin (0.2 - 1.3 mg/dL) 0.5 AST (14 - 36 U/L) 21 ALT (9 - 52 U/L) 37 Albumin (3.5 - 5.0 g/dL) 2.2 L Hematology CBC w Diff NO MAN DIFF REQ WBC (4.8 - 10.8 /CUMM) 18.5 H RBC (4.20 - 5.40 /CUMM) 3.64 L Hgb (12.0 - 16.0 G/DL) 10.9 L Hct (37 - 47 %) 34.0 L MCV (81.0 - 99.0 FL) 93.3 MCH (27.0 - 31.0 PG) 29.8 RDW (11.5 - 14.5 %) 21.5 H Plt Count (130 - 400 /CUMM) 31 L MPV (7.4 - 10.4 FL) 10.0 Gran % (42.2 - 75.2 %) 96.2 H Lymphocytes % (20.5 - 51.1 %) 2.2 L Monocytes % (1.7 - 9.3 %) 1.6 L Eosinophils % (0 - 5 %) 0 Basophils % (0.0 - 2.0 %) 0 Absolute Granulocytes (1.4 - 6.5 /CUMM) 17.8 H Absolute Lymphocytes (1.2 - 3.4 /CUMM) 0.4 L Absolute Monocytes (0.10 - 0.60 /CUMM) 0.3 Absolute Eosinophils (0.0 - 0.7 /CUMM) 0 Absolute Basophils (0.0 - 0.2 /CUMM) 0 PUBS MCHC (33.0 - 37.0 G/DL) 32.0 L Miscellaneous Phlebotomy Draw Site RIGHT BRACHIAL 05/19 05/19 1430 1430 Chemistry Sodium (137 - 145 mmol/L) 143 Potassium (3.5 - 5.1 mmol/L) 4.7 Chloride (98 - 107 mmol/L) 101 Carbon Dioxide (22 - 30 mmol/L) 32 H Anion Gap (5 - 16) 10 BUN (7 - 17 mg/dL) 52 H Creatinine (0.5 - 1.0 mg/dL) 1.6 H Estimated GFR (>60 ml/min) 31 L BUN/Creatinine Ratio (7 - 25 %) 32.5 H Lactic Acid (0.7 - 2.1 mmol/L) 1.2 Troponin I (< 0.11 ng/ml) Cancelled 0.17 *H Cortisol PM Sample (1.7 - 14.1) 16.6 H Hematology CBC w Diff NO MAN DIFF REQ WBC (4.8 - 10.8 /CUMM) 15.0 H RBC (4.20 - 5.40 /CUMM) 3.66 L Hgb (12.0 - 16.0 G/DL) 10.9 L Hct (37 - 47 %) 33.6 L MCV (81.0 - 99.0 FL) 91.8 MCH (27.0 - 31.0 PG) 29.7 RDW (11.5 - 14.5 %) 21.8 H Plt Count (130 - 400 /CUMM) 21 *L MPV (7.4 - 10.4 FL) 9.3 Gran % (42.2 - 75.2 %) 95.1 H Lymphocytes % (20.5 - 51.1 %) 2.1 L Monocytes % (1.7 - 9.3 %) 2.7 Eosinophils % (0 - 5 %) 0 Basophils % (0.0 - 2.0 %) 0.1 Absolute Granulocytes (1.4 - 6.5 /CUMM) 14.2 H Absolute Lymphocytes (1.2 - 3.4 /CUMM) 0.3 L Absolute Monocytes (0.10 - 0.60 /CUMM) 0.4 Absolute Eosinophils (0.0 - 0.7 /CUMM) 0 Absolute Basophils (0.0 - 0.2 /CUMM) 0 PUBS MCHC (33.0 - 37.0 G/DL) 32.3 L 05/19 05/19 05/19 05/19 1425 1047 0600 0554 Blood Gas pH (7.35 - 7.45 PH) 7.38 pCO2 (35 - 45 TORR) 48 H pO2 (80 - 100 TORR) 53 L HCO3 (21 - 28 MEQ/L) 28 ABG O2 Sat (Measured) (>96.0 %) 84.0 L P-50 (Temp Corrected) N Carboxyhemoglobin (1.5 - 5.0 %) 1.5 O2 Concentration % 6L Temperature (97.0 - 100.0 FARH) 99.8 O2 Delivery Method N/C Chemistry Lactic Acid Cancelled Troponin I (< 0.11 ng/ml) 0.14 *H Cancelled Miscellaneous Phlebotomy Draw Site LEFT BRACH 05/19 05/19 0554 0554 Chemistry Estimated GFR Cancelled Cancelled 05/19 05/19 0554 0526 Chemistry Sodium (137 - 145 mmol/L) 142 Potassium (3.5 - 5.1 mmol/L) 5.1 Chloride (98 - 107 mmol/L) 102 Carbon Dioxide (22 - 30 mmol/L) 30 Anion Gap (5 - 16) 10 BUN (7 - 17 mg/dL) 56 H Creatinine (0.5 - 1.0 mg/dL) 1.3 H Estimated GFR (>60 ml/min) 39 L BUN/Creatinine Ratio (7 - 25 %) 43.1 H Troponin I (< 0.11 ng/ml) 0.12 *H [id number] Pept (<125 pg/mL) 9630 H Hematology CBC w Diff MAN DIFF ORDERED WBC (4.8 - 10.8 /CUMM) 13.6 H RBC (4.20 - 5.40 /CUMM) 3.94 L Hgb (12.0 - 16.0 G/DL) 11.7 L Hct (37 - 47 %) 36.6 L MCV (81.0 - 99.0 FL) 93.1 MCH (27.0 - 31.0 PG) 29.7 RDW (11.5 - 14.5 %) 21.6 H Plt Count (130 - 400 /CUMM) 23 *L MPV (7.4 - 10.4 FL) 10.1 Gran % (42.2 - 75.2 %) 91.0 H Lymphocytes % (20.5 - 51.1 %) 3.5 L Monocytes % (1.7 - 9.3 %) 5.3 Eosinophils % (0 - 5 %) 0 Basophils % (0.0 - 2.0 %) 0.2 Absolute Granulocytes (1.4 - 6.5 /CUMM) 12.4 H Segmented Neutrophils (42.2 - 75.2 %) 86 H Absolute Lymphocytes (1.2 - 3.4 /CUMM) 0.5 L Lymphocytes (20.5 - 51.1 %) 3 L Monocytes (1.7 - 9.3 %) 11 H Absolute Monocytes (0.10 - 0.60 /CUMM) 0.7 H Absolute Eosinophils (0.0 - 0.7 /CUMM) 0 Absolute Basophils (0.0 - 0.2 /CUMM) 0 Platelet Estimate (ADEQUATE) DECREASED Polychromasia 1+ Hypochromic-Microcytic 1+ Poikilocytosis 1+ Ovalocytes 1+ PUBS MCHC (33.0 - 37.0 G/DL) 32.0 L Other Body Source Fld Total RBCs Counted (%) 100 Urines Urinalysis LIGHT H Urine Color (YEL,AMB,STR) YEL Urine Clarity (CLEAR) CLEAR Urine pH (5.0 - 8.0) 6.0 Ur Specific [place] (1.001 - 1.035) 1.020 Urine Protein (NEG,<30 MG/DL) 30 H Urine Ketones (NEG) NEG Urine Nitrite (NEG) NEG Urine Bilirubin (NEG) NEG Urine Urobilinogen (0.1 - 1.0 EU/dl) 0.2 Ur Leukocyte Esterase (NEG) NEG Ur Microscopic SEDIMENT EXAMINED Urine RBC (0 - 5 /HPF) 25-50 H Urine WBC (0 - 2 /HPF) 1-3 H Ur Epithelial Cells (NONE,FEW) FEW Hyaline Casts (0/LPF) 3-5 H Urine Mucus (FEW,NONE) FEW Urine Hemoglobin (NEG) MOD H Urine Glucose (N MG/DL) NEG 05/19 05/19 05/18 0254 0103 2250 Chemistry Sodium (137 - 145 mmol/L) 139 Potassium (3.5 - 5.1 mmol/L) 5.4 H Chloride (98 - 107 mmol/L) 101 Carbon Dioxide (22 - 30 mmol/L) 29 Anion Gap (5 - 16) 9 BUN (7 - 17 mg/dL) 55 H Creatinine (0.5 - 1.0 mg/dL) 1.3 H Estimated GFR (>60 ml/min) 39 L BUN/Creatinine Ratio (7 - 25 %) 42.3 H Glucose (65 - 99 mg/dL) 143 H Lactic Acid Cancelled Cancelled Calcium (8.4 - 10.2 mg/dL) 8.3 L Magnesium (1.6 - 2.3 mg/dL) 2.2 Total Bilirubin (0.2 - 1.3 mg/dL) 0.8 Direct Bilirubin (< 0.4 mg/dL) 0.3 AST (14 - 36 U/L) 13 L ALT (9 - 52 U/L) 47 Alkaline Phosphatase (<127 U/L) 48 Troponin I (< 0.11 ng/ml) 0.10 [id number] Pept (<125 pg/mL) 9830 H Total Protein (6.3 - 8.2 g/dL) 4.8 L Albumin (3.5 - 5.0 g/dL) 2.6 L Amylase (30 - 110 U/L) < 30 L Lipase (23 - 300 U/L) 40 Coagulation PT (9.4 - 12.5 SEC) 12.1 INR (0.90 - 1.19) 1.15 APTT (25 - 37 SEC) 25 D-Dimer High Sensitivty (0 - 243 ng/ml) 303 H 05/18 05/18 2219 2210 Blood Gas pH (7.35 - 7.45 PH) 7.45 pCO2 (35 - 45 TORR) 37 pO2 (80 - 100 TORR) 54 L HCO3 (21 - 28 MEQ/L) 25 ABG O2 Sat (Measured) (>96.0 %) 86.0 L P-50 (Temp Corrected) N Carboxyhemoglobin (1.5 - 5.0 %) 1.4 L O2 Concentration % R/A Temperature (97.0 - 100.0 FARH) 99.4 Chemistry Lactic Acid (0.7 - 2.1 mmol/L) 1.2 Hematology CBC w Diff NO MAN DIFF REQ WBC (4.8 - 10.8 /CUMM) 11.0 H RBC (4.20 - 5.40 /CUMM) 4.46 Hgb (12.0 - 16.0 G/DL) 13.4 Hct (37 - 47 %) 41.8 MCV (81.0 - 99.0 FL) 93.6 MCH (27.0 - 31.0 PG) 30.0 RDW (11.5 - 14.5 %) 21.3 H Plt Count (130 - 400 /CUMM) 44 L MPV (7.4 - 10.4 FL) 8.8 Gran % (42.2 - 75.2 %) 94.6 H Lymphocytes % (20.5 - 51.1 %) 2.2 L Monocytes % (1.7 - 9.3 %) 3.0 Eosinophils % (0 - 5 %) 0.1 Basophils % (0.0 - 2.0 %) 0.1 Absolute Granulocytes (1.4 - 6.5 /CUMM) 10.4 H Absolute Lymphocytes (1.2 - 3.4 /CUMM) 0.2 L Absolute Monocytes (0.10 - 0.60 /CUMM) 0.3 Absolute Eosinophils (0.0 - 0.7 /CUMM) 0 Absolute Basophils (0.0 - 0.2 /CUMM) 0 PUBS MCHC (33.0 - 37.0 G/DL) 32.0 L Miscellaneous Phlebotomy Draw Site LEFT RADIAL Imaging/Other Studies: CTA chest 05/19/2017 1. Accounting for suboptimal examination for reasons described above, there are no definite pulmonary emboli. 2. Moderate atelectasis or consolidation in the left upper and lower lobes. Mild right base atelectasis. 3. Moderate left and [id number] right pleural effusions. 4. Cardiomegaly. Reflux of contrast into the IVC and hepatic veins suggesting elevated right heart pressures. CT head 05/19/2017: No acute intracranial pathology. Assessment/Plan Assessment: Ms. 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 She has been having new cough a few days ago. CTA demonstrated moderate atelectasis/consolidation in the left upper and lower lobes. There was mild right base atelectasis and moderate left and small-to- moderate right pleural effusions. She remains hypotensive and is on Levophed. She is being treated empirically for sepsis. Sources include lung and skin. She has skin breakdown in the lower extremities. Her thrombocytopenia has been attributed to ITP and was treated with steroid previously and responded well. Platelet count decreased on lower dose prednisone. She was increased to 100 mg of prednisone (previously 50 mg) and then to 150 mg once platelet did not improve. She may need second line therapy such as rituximab once stabled. If platelet decreases, she may need IVIG. For now, the platelet count seem stable and the decrease may be related to sepsis. DIC should be evaluated. Recommendations: Shock: -management as per ICU -empiric broad spectrum antibiotics -Levophed as per primary Chronic ITP: -currently on hydrocortisone 100 mg every 8 hours -continue hydrocortisone -check DIC panel daily x 3 days: PT/PTT, Fibrinogen -transfusion with platelet if <20,000 -once stable, may consider IVIG -will likely need second line therapy Atrial fibrillation with RVR: -cardiology following -digoxin currently Problem List: 1. CHF (congestive heart failure) 2. Thrombocytopenia 3. Chronic anemia Other Findings/Comments: Please call [phone] with any questions or concerns. Consult Acknowledgment - Thank you for your consult request.
[2017-05-20 08:00] VITALS: BP 122/82
--- NOTE | 2017-05-20 08:45 | RADIOLOGY REPORT ---
EXAMINATION: XR PORTABLE CHEST CLINICAL INFORMATION: Intubated. Check ET tube. COMPARISON: Chest done on 05/19/2017. TECHNIQUE: Portable frontal view of the chest was obtained. FINDINGS: The tip of endotracheal tube is at the level of the proximal part of the right main bronchus and needs to be repositioned. The enteric tube tip is not visualized due to underexposure however appears to be projecting below the level of the diaphragm. Evaluation of the lung field is technically limited due to suboptimal positioning. IMPRESSION: The tip of the endotracheal tube is at the level of the proximal part of the right main bronchus and needs to be repositioned. This critical result was discussed with Dr. Jose D Tate MD at 8:40 AM on 05/20/2017 and it was ascertained that the content and urgency of the report was understood at the time of direct communication.
--- NOTE | 2017-05-20 09:15 | PN- Resident CRCU ---
Jaron RAMOS,[facility] 05/20/17 0914: Subjective HPI/CRCU Issues: Atrial Fibrilliation Hypotension Acute Hypoxic Respiratory Failure 24 Hour Events: Patient underwent intubation and central line placement yesterday. Currently on 100% FiO2. On Levophed for blood pressure and propofol. Is awake, alert this morning and responsive to commands. She is able to nod/shake her head to acknowledge and respond to questions. Denies being in any pain. Objective Vital Signs & I&O Last 8 Hrs of Vitals and I&O: . Exam General Appearance: well developed/nourished, alert, awake, intubated, mild distress Head: atraumatic, normal appearance Respiratory: rhonchi, decreased on left Cardiovascular: irregularly irregular Gastrointestinal: soft, non-tender Extremities: no edema Skin: skin changes of both legs with possible cellulitis Skin Temp/Moisture Exam: Warm/Dry Sepsis Skin Exam (color): Normal for Ethnicity Central Line Site: R IJ Date In: 05/19/17 Need for Catheter: pressors Current Medications: Current Medications Sig/Ric Start time Last Medication Dose Route Stop Time Status Admin Acetaminophen 650 MG Q6P PRN 05/19 0300 AC PO Acetaminophen 1,000 MG Q6P PRN 05/19 0300 AC IV Atorvastatin Calcium 80 MG 1700 05/19 1700 DC PO Ceftazidime 1,000 MG Q12 05/19 1000 AC 05/19 IV 2129 Digoxin 0.25 MG ONCE ONE 05/20 1000 AC 05/20 IV 05/20 1001 0804 Digoxin 0.25 MG ONCE ONE 05/20 0130 DC IV 05/20 0131 Digoxin 0.25 MG ONCE ONE 05/19 1930 DC 05/19 IV 05/19 1931 1953 Digoxin 0.25 MG ONCE ONE 05/19 1615 DC 05/19 IV 05/19 1616 1644 Diltiazem HCl 360 MG DAILY 05/19 1000 DC 05/19 PO 0824 Doxycycline Hyclate 100 MG Q12 05/19 2200 AC 05/19 Dextrose/Water 100 ML IV 2129 Folic Acid 1 MG DAILY 05/19 1000 DC 05/19 PO 1019 Furosemide 20 MG DAILY 05/19 1000 DC 05/19 IV 1013 Hydrocortisone 100 MG Q8 05/19 1639 AC 05/20 Sodium Succinate IV 0515 Lorazepam 0 .STK-MED ONE 05/19 1004 DC PO Lorazepam 1 MG DAILY 05/19 1000 DC 05/19 PO 1019 Metoprolol Tartrate 0 .STK-MED ONE 05/19 1141 DC IV Metoprolol Tartrate 5 MG ONCE ONE 05/19 1115 DC 05/19 IV 05/19 1116 1138 Metoprolol Tartrate 200 MG BID 05/19 1000 DC 05/19 PO 1019 Mirtazapine 15 MG QPM 05/19 2200 DC PO Naloxone HCl 0.4 MG ONCE ONE 05/19 1615 DC 05/19 IM 05/19 1616 1637 Non-Formulary 0 SEE ADMIN CRITERIA 05/20 0615 CAN Medication ANY Norepinephrine 4 MG Q30H 05/20 0800 AC Dextrose/Water 250 ML IV Norepinephrine 4 MG Q6H 05/19 2200 DC 05/20 Dextrose/Water 250 ML IV 0516 Norepinephrine 4 MG Q24H 05/19 1630 DC 05/19 Dextrose/Water 250 ML IV 05/20 0229 1637 Omeprazole 40 MG DAILY AC 05/19 0700 DC 05/19 PO 0604 Pantoprazole Sodium 40 MG DAILY 05/20 0030 AC 05/20 IV 0806 Prednisone 50 MG DAILY 05/19 1000 DC 05/19 PO 1019 Pregabalin 150 MG AT BEDTIME 05/19 2200 DC PO Propofol 1,000 MG Q24H 05/20 0615 AC 05/20 N/A 1 UNIT IV 0614 Sodium Chloride 1,000 ML Q10H 05/19 1915 AC 05/20 IV 05/20 1514 0600 Vancomycin HCl 1,000 MG DAILY 05/19 1000 AC 05/19 Sodium Chloride 250 ML IV 1013 CXR Findings: The tip of the endotracheal tube is at the level of the proximal part of the right main bronchus and needs to be repositioned. Impression/Plan Impression/Problem List Impression: 86 year old woman with past medical history of hypertension, hyperlipidemia, MT s/p PCI with stent, diabetes mellitus, and restless leg syndrome, history of atrial fibrillation with anticoagulation on hold due to severe thrombocytopenia was sent in from extended care facility for hypoxia, leukocytosis and productive cough. She was admitted on telemetry floor and transfered to ICU yesterday after patient desaturated became unresponsive. Assessment and Plan: Acute hypoxic respiratory failure likely secondary to HCAP: * Continue IV ceftazidime, vancomycin and doxycycline for underlying health associated pneumonia. She came in from [facility] and was also hospitalized at [facility] last month. * Currently intubated with FiO2 of 60%. She has been weaned down from 100% O2. * CXR from today showed ETT had displaced in right bronchus. It has been repositioned. * Repeat ABG today shows significant improvement. * Will follow up sputum culture. * ID recs appreciated. Atrial Fibrilliation with Hypotension: * Oral metoprolol and cardizem on hold due to hypotension. * Will continue IV digoxin 0.25 qd. * Per cardio, can start Amio drip if heart rate stays elevated above 130. * AC on hold due to thrombocytopenia * Will continue IVF with NS @ 100ml/hr * Continue Levophed. Currently @ 7.5 mcg. Will wean down as tolerated by blood pressure. Goal is MAP > 65 * Will consider possibility of chemical cardioversion after talking to Dr Álvarez * Echo - Normal left ventricular ejection fraction visually estimated at > 60% . Immune Thrombocytopenia: * Previously responded to oral Prednisone. She was on high dose 150mg/day * Currently on IV Hydrocortisone 100mg q8. Will continue. * Daily CBC * Hematology recommends to transfuse if Plt count <20K Lower Extremity Skin Changes: * Was evaluated by vascular surgery. Recommend no surgical intervention at this time. * Possible cellulitis * She is already on antibiotics for suspected HCAP. Should provide coverage for cellulitis if present. History of restless leg syndrome: * Sinemet was recently discontinued * Lyrica on hold currently. DVT Prophylaxis: ALPS Code: Full Problem List: 1. Atrial fibrillation with RVR Pain Ratin Tomorrow's Labs & Rationales: CBC, ICU bundle Plan DVT/Prophylaxis: mechanical Jordi Pyle MD 05/20/17 1055: Attending MD Review Statement Attending Sign Off Attending Cosign Statement: I have: examined this patient, reviewed al EMR data, personally reviewd images, discussd w/resident/PA/TEACHER SPECIALIST, discussed mgmt plan w/ida, discussed mgmt plan w/CM, discussed mgmt plan w/pt, agreed w/resident/PA/TEACHER SPECIALIST, amended to note. Other Findings: Impression 86 year old woman * septic shock * a.fib RVR * acute hypoxemic respiratory failure Plan -cont to titrate levophed, map goal >65 -broad spectrum abx -cardiology, ID f/u -no PE -stress steroids - would alert transition coach of patient's admission -repeat abg - likely mixed venous DVT prophylaxis at all times TTS 40 min
--- NOTE | 2017-05-20 10:40 | PN- Infect Dx ---
Subjective Subjective: Afebrile on steroids. She is on pressors for hypotension and remains intubated. She does not offer any specific complaints. Objective Last 24 Hrs of Vital Signs/I&O Vital Signs Date Time Temp Pulse Resp B/P B/P Pulse O2 O2 Flow FiO2 Mean Ox Delivery Rate 05/20 0810 100 05/20 0800 98 Ventilator 100% 05/20 0800 99.8 120 12 122/82 98 Ventilator 100% 05/20 0516 116 108/65 05/20 0507 100 05/20 0400 96 Ventilator 60% 05/20 0343 60 05/20 0120 98 115/66 05/20 0055 60 05/20 0000 99.7 114 14 114/74 94 Ventilator 60% 05/20 0000 94 Ventilator 60% 05/19 2212 60 05/19 2210 117 108/83 05/19 2000 98 Ventilator 60% 05/19 1953 138 119/77 05/19 1800 60 05/19 1721 97.7 121 24 117/71 95 Nasal 4.0L Cannula 05/19 1644 Nasal 6.0L Cannula 05/19 1338 99.8 109 14 111/51 90 Nasal 2.0L Cannula 05/19 1138 99.0 133 20 125/69 05/19 1047 99.0 124 20 125/69 96 Nasal 2.0L Cannula Intake & Output 05/20 1600 05/20 0800 05/20 0000 Intake Total 995 1554 Output Total 280 290 Balance 715 1264 Intake, IV 995 1554 Output, Urine 280 290 Patient 255 lb Weight Weight Bed scale Bed scale Measurement Method Physical Exam Other Physical Findings: She is awake and alert on the ventilator Neck right IJ triple-lumen catheter in place with no inflammation at the site Lungs are clear anteriorly Heart regular rhythm with no murmur Abdomen is obese, soft, nontender with positive bowel sounds Extremities chronic venous stasis changes both lower extremities Faust catheter is in place Results Last 24 Hours of Lab Results: Laboratory Tests 05/20 05/20 05/20 05/20 0950 0830 0800 0445 Blood Gas pH (7.35 - 7.45 PH) 7.38 7.42 pCO2 (35 - 45 TORR) 32 L 38 pO2 (80 - 100 TORR) 153 H 40 *L HCO3 (21 - 28 MEQ/L) 18 L 24 ABG O2 Sat (Measured) (>96.0 %) 98.0 66.0 L P-50 (Temp Corrected) Y Carboxyhemoglobin (1.5 - 5.0 %) 0.3 L 0.3 L O2 Concentration % 80 60% Temperature (97.0 - 100.0 FARH) 98.8 Respiration Rate (BPM) 14 14 O2 Delivery Method VENT ESPRIT Vent Mode AC AC Expiratory Pressure (CMH2O/P) 5 5 Tidal Volume (CC) 550 550 Chemistry Troponin I (< 0.11 ng/ml) 0.25 *H Cancelled Miscellaneous Phlebotomy Draw Site LEFT RADIAL RIGHT BRACHIAL 05/20 05/20 05/19 0300 0300 2232 Chemistry Sodium (137 - 145 mmol/L) 142 Potassium (3.5 - 5.1 mmol/L) 5.1 Chloride (98 - 107 mmol/L) 104 Carbon Dioxide (22 - 30 mmol/L) 24 Anion Gap (5 - 16) 14 BUN (7 - 17 mg/dL) 56 H Creatinine (0.5 - 1.0 mg/dL) 1.5 H Estimated GFR (>60 ml/min) 33 L Glucose (65 - 99 mg/dL) 122 H Lactic Acid Cancelled Calcium (8.4 - 10.2 mg/dL) 7.9 L Phosphorus (2.5 - 4.5 mg/dL) 5.1 H Magnesium (1.6 - 2.3 mg/dL) 2.0 Total Bilirubin (0.2 - 1.3 mg/dL) 0.7 AST (14 - 36 U/L) 20 ALT (9 - 52 U/L) 41 Troponin I (< 0.11 ng/ml) 0.23 *H Albumin (3.5 - 5.0 g/dL) 2.2 L Hematology CBC w Diff MAN DIFF ORDERED WBC (4.8 - 10.8 /CUMM) 15.4 H RBC (4.20 - 5.40 /CUMM) 3.65 L Hgb (12.0 - 16.0 G/DL) 10.9 L Hct (37 - 47 %) 33.5 L MCV (81.0 - 99.0 FL) 92.0 MCH (27.0 - 31.0 PG) 29.9 RDW (11.5 - 14.5 %) 22.0 H Plt Count (130 - 400 /CUMM) 25 *L MPV (7.4 - 10.4 FL) 9.8 Gran % (42.2 - 75.2 %) 95.0 H Lymphocytes % (20.5 - 51.1 %) 2.8 L Monocytes % (1.7 - 9.3 %) 2.1 Eosinophils % (0 - 5 %) 0 Basophils % (0.0 - 2.0 %) 0.1 Absolute Granulocytes (1.4 - 6.5 /CUMM) 14.6 H Segmented Neutrophils (42.2 - 75.2 %) 95 H Absolute Lymphocytes (1.2 - 3.4 /CUMM) 0.4 L Lymphocytes (20.5 - 51.1 %) 5 L Absolute Monocytes (0.10 - 0.60 /CUMM) 0.3 Absolute Eosinophils (0.0 - 0.7 /CUMM) 0 Absolute Basophils (0.0 - 0.2 /CUMM) 0 Platelet Estimate (ADEQUATE) VERIFIED BY SMEAR Polychromasia 1+ Poikilocytosis 1+ Anisocytosis 1+ [place] Cells 1+ Elliptocytes 1+ PUBS MCHC (33.0 - 37.0 G/DL) 32.5 L 05/19 1930 Blood Gas pH (7.35 - 7.45 PH) 7.59 H pCO2 (35 - 45 TORR) 25 L pO2 (80 - 100 TORR) 93 HCO3 (21 - 28 MEQ/L) 23 ABG O2 Sat (Measured) (>96.0 %) 97.0 P-50 (Temp Corrected) N Carboxyhemoglobin (1.5 - 5.0 %) 0.5 L O2 Concentration % 60% Temperature (97.0 - 100.0 FARH) 98.9 Respiration Rate (BPM) 20 O2 Delivery Method ESPRIT VENT Vent Mode AC Expiratory Pressure (CMH2O/P) 5 Tidal Volume (CC) 550 Chemistry Lactic Acid (0.7 - 2.1 mmol/L) 1.4 Troponin I (< 0.11 ng/ml) 0.19 *H Miscellaneous Phlebotomy Draw Site RIGHT BRACHIAL 05/19 05/19 1750 1620 Blood Gas pH (7.35 - 7.45 PH) 7.37 pCO2 (35 - 45 TORR) 49 H pO2 (80 - 100 TORR) 83 HCO3 (21 - 28 MEQ/L) 28 ABG O2 Sat (Measured) (>96.0 %) 94.0 L P-50 (Temp Corrected) N Carboxyhemoglobin (1.5 - 5.0 %) 0.7 L O2 Concentration % 6L Temperature (97.0 - 100.0 FARH) 99.0 O2 Delivery Method NC Chemistry Sodium (137 - 145 mmol/L) 143 Potassium (3.5 - 5.1 mmol/L) 4.8 Chloride (98 - 107 mmol/L) 102 Carbon Dioxide (22 - 30 mmol/L) 31 H Anion Gap (5 - 16) 11 BUN (7 - 17 mg/dL) 55 H Creatinine (0.5 - 1.0 mg/dL) 1.5 H Estimated GFR (>60 ml/min) 33 L Glucose (65 - 99 mg/dL) 93 Calcium (8.4 - 10.2 mg/dL) 7.8 L Phosphorus (2.5 - 4.5 mg/dL) 4.6 H Magnesium (1.6 - 2.3 mg/dL) 2.0 Total Bilirubin (0.2 - 1.3 mg/dL) 0.5 AST (14 - 36 U/L) 21 ALT (9 - 52 U/L) 37 Albumin (3.5 - 5.0 g/dL) 2.2 L Hematology CBC w Diff NO MAN DIFF REQ WBC (4.8 - 10.8 /CUMM) 18.5 H RBC (4.20 - 5.40 /CUMM) 3.64 L Hgb (12.0 - 16.0 G/DL) 10.9 L Hct (37 - 47 %) 34.0 L MCV (81.0 - 99.0 FL) 93.3 MCH (27.0 - 31.0 PG) 29.8 RDW (11.5 - 14.5 %) 21.5 H Plt Count (130 - 400 /CUMM) 31 L MPV (7.4 - 10.4 FL) 10.0 Gran % (42.2 - 75.2 %) 96.2 H Lymphocytes % (20.5 - 51.1 %) 2.2 L Monocytes % (1.7 - 9.3 %) 1.6 L Eosinophils % (0 - 5 %) 0 Basophils % (0.0 - 2.0 %) 0 Absolute Granulocytes (1.4 - 6.5 /CUMM) 17.8 H Absolute Lymphocytes (1.2 - 3.4 /CUMM) 0.4 L Absolute Monocytes (0.10 - 0.60 /CUMM) 0.3 Absolute Eosinophils (0.0 - 0.7 /CUMM) 0 Absolute Basophils (0.0 - 0.2 /CUMM) 0 PUBS MCHC (33.0 - 37.0 G/DL) 32.0 L Miscellaneous Phlebotomy Draw Site RIGHT BRACHIAL 05/19 05/19 1430 1430 Chemistry Sodium (137 - 145 mmol/L) 143 Potassium (3.5 - 5.1 mmol/L) 4.7 Chloride (98 - 107 mmol/L) 101 Carbon Dioxide (22 - 30 mmol/L) 32 H Anion Gap (5 - 16) 10 BUN (7 - 17 mg/dL) 52 H Creatinine (0.5 - 1.0 mg/dL) 1.6 H Estimated GFR (>60 ml/min) 31 L BUN/Creatinine Ratio (7 - 25 %) 32.5 H Lactic Acid (0.7 - 2.1 mmol/L) 1.2 Troponin I (< 0.11 ng/ml) Cancelled 0.17 *H Cortisol PM Sample (1.7 - 14.1) 16.6 H Hematology CBC w Diff NO MAN DIFF REQ WBC (4.8 - 10.8 /CUMM) 15.0 H RBC (4.20 - 5.40 /CUMM) 3.66 L Hgb (12.0 - 16.0 G/DL) 10.9 L Hct (37 - 47 %) 33.6 L MCV (81.0 - 99.0 FL) 91.8 MCH (27.0 - 31.0 PG) 29.7 RDW (11.5 - 14.5 %) 21.8 H Plt Count (130 - 400 /CUMM) 21 *L MPV (7.4 - 10.4 FL) 9.3 Gran % (42.2 - 75.2 %) 95.1 H Lymphocytes % (20.5 - 51.1 %) 2.1 L Monocytes % (1.7 - 9.3 %) 2.7 Eosinophils % (0 - 5 %) 0 Basophils % (0.0 - 2.0 %) 0.1 Absolute Granulocytes (1.4 - 6.5 /CUMM) 14.2 H Absolute Lymphocytes (1.2 - 3.4 /CUMM) 0.3 L Absolute Monocytes (0.10 - 0.60 /CUMM) 0.4 Absolute Eosinophils (0.0 - 0.7 /CUMM) 0 Absolute Basophils (0.0 - 0.2 /CUMM) 0 PUBS MCHC (33.0 - 37.0 G/DL) 32.3 L 05/19 05/19 1425 1047 Blood Gas pH (7.35 - 7.45 PH) 7.38 pCO2 (35 - 45 TORR) 48 H pO2 (80 - 100 TORR) 53 L HCO3 (21 - 28 MEQ/L) 28 ABG O2 Sat (Measured) (>96.0 %) 84.0 L P-50 (Temp Corrected) N Carboxyhemoglobin (1.5 - 5.0 %) 1.5 O2 Concentration % 6L Temperature (97.0 - 100.0 FARH) 99.8 O2 Delivery Method N/C Chemistry Troponin I (< 0.11 ng/ml) 0.14 *H Miscellaneous Phlebotomy Draw Site LEFT BRACH Last 24 Hours of Silvano Results: Blood cultures May 18 negative Blood cultures May 19 negative Urine culture May 19 negative Urine strep pneumo antigen and Legionella antigen May 19 negative Sputum culture May 20 pending Recent Imaging Studies: Chest x-ray May 20 reveals bibasilar densities, left greater than right CT of the head May 19 no acute process Assessment/Plan Impression: Overall status is poor, with hypotension, requiring pressors, respiratory failure, requiring significant amounts of oxygen, worsening thrombocytopenia despite steroids, suggesting progression or lack of response to her current treatment for ITP, and persistent leukocytosis, possibly in part secondary to steroids, now on Vancomycin, Doxycycline and Ceftazidime for possible healthcare associated pneumonia. Unfortunately 2 sputa have been rejected because of oropharyngeal contamination and will await the results of a repeat sputum culture sent this morning. Suggestion: 1. Follow-up sputum culture 2. 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 Continue Vancomycin, Doxycycline and Ceftazidime pending above
--- NOTE | 2017-05-20 10:44 | RADIOLOGY REPORT ---
EXAMINATION: XR PORTABLE CHEST CLINICAL INFORMATION: Hypoxic respiratory failure. Repositioning of endotracheal tube. COMPARISON: Chest radiograph done on 05/20/2017 at 6:10 AM. TECHNIQUE: Portable frontal view of the chest was obtained. FINDINGS: The tip of the endotracheal tube is located approximately 3.6 cm above the level of the krystal. The tip of the enteric tube is not visualized since not included within the [id number]. Bibasilar nonspecific airspace opacities are noted, similar to prior study. IMPRESSION: The tip of the endotracheal tube is located approximately 3.6 cm above the level of the krystal. No other significant change since prior study.
--- NOTE | 2017-05-20 10:45 | Event Note ---
Event Note Event Note: Called and spoke to Dr. Álvarez to see if there is a role for chemical or electrical cardioversion as patient's HR has been fluctuating from 110s-150s; this could be a potential reason for her low blood pressures. At this time he reluctant to cardiovert especially without a TARAH as she is not appropriately anticoagulated. Recommended we start IV amiodarione drip.
--- NOTE | 2017-05-20 11:31 | ECHOCARDIOGRAM REPORT ---
SOLEDAD WILLSON Age: 86 : 1930 Gender: F Exam Date: 05/19/2017 18:46 Exam Location: [facility] Ht (in): 64 Wt (lb): 200 BSA: 2.06 BP: 117 / 71 Ordering Physician: Milad Davidson MD Referring Physician: Johnny Álvarez M.D. Technologist: Shayy Arriaga HUYEN Room Number: 107 Indications: HYPOTENSION Rhythm: PVCs Technical Quality: Technically difficult study FINDINGS Left Ventricle Normal size left ventricle. Normal left ventricular ejection fraction visually estimated at >60%. Normal left ventricular wall motion. Mild concentric left ventricular hypertrophy. Right Ventricle Normal right ventricular size and function. Right Atrium Normal right atrial size. Left Atrium Mild left atrial dilatation. Mitral Valve Mild mitral annular calcification. Mitral valve thickened. Mild mitral regurgitation. Aortic Valve Mildly thickened aortic valve. No aortic stenosis. No aortic regurgitation. Tricuspid Valve Tricuspid valve not well visualized, grossly normal. Mild tricuspid regurgitation. Right ventricular systolic pressure estimated to be elevated at 53 mmHg. Pulmonic Valve Pulmonic valve not well visualized, grossly normal. Trace pulmonic regurgitation. Pericardium No pericardial effusion. Great Vessels Normal size aortic root. CONCLUSIONS Normal size left ventricle. Normal left ventricular ejection fraction visually estimated at > 60%. Mild concentric left ventricular hypertrophy. Mild left atrial dilatation. Mild mitral regurgitation. Mild tricuspid regurgitation. Right ventricular systolic pressure estimated to be elevated at 53 mmHg. Trace pulmonic regurgitation. Boogie Thompson M.D. (Electronically Signed) Final Date: 20 May 2017 11:30 MEASUREMENTS (Male / Female) Normal Values 2D ECHO LV Diastolic Diameter PLAX 4.0 cm 4.2 - 5.9 / 3.9 - 5.3 cm LV Systolic Diameter PLAX 2.5 cm 2.1 - 4.0 cm LV Fractional Shortening PLAX 37.5 % 25 - 46 % LV Ejection Fraction 2D Teich 68.1 % IVS Diastolic Thickness 1.2 cm LVPW Diastolic Thickness 1.2 cm LV Relative Wall Thickness 0.6 RV Internal Dim ED PLAX 2.3 cm 1.9 - 3.8 cm LVOT Diameter 2.0 cm Aortic Root Diameter 3.1 cm LA Systolic Diameter LX 4.9 cm 3.0 - 4.0 / 2.7 - 3.8 cm Ascending Aorta Diameter 3.2 cm DOPPLER AV Peak Velocity 114.0 cm/s AV Peak Gradient 5.2 mmHg AV Mean Velocity 82.9 cm/s AV Mean Gradient 3.0 mmHg AV Velocity Time Integral 20.4 cm LVOT Peak Velocity 65.4 cm/s LVOT Peak Gradient 1.7 mmHg LVOT Mean Velocity 44.5 cm/s LVOT Mean Gradient 1.0 mmHg LVOT Velocity Time Integral 10.3 cm LVOT Stroke Volume 32.4 cm AV Area Cont Eq vti 1.6 cm AV Area Cont Eq pk 1.8 cm MV Peak Velocity 112.0 cm/s MV Peak Gradient 5.0 mmHg MV Mean Velocity 54.2 cm/s MV Mean Gradient 2.0 mmHg Mitral E Point Velocity 103.0 cm/s MV PHT Velocity 118.0 cm/s MV Deceleration Refugio 581.0 cm/s MV Pressure Half Time 60.9 ms MV Area PHT 3.6 cm MV Deceleration Time 161.0 ms TR Peak Velocity 347.0 cm/s TR Peak Gradient 48.2 mmHg Right Atrial Pressure 5.0 mmHg Pulmonary Artery Systolic Pressu 53.2 mmHg Right Ventricular Systolic Press 53.2 mmHg PV Peak Velocity 77.5 cm/s PV Peak Gradient 2.4 mmHg PV Mean Velocity 52.6 cm/s PV Mean Gradient 1.0 mmHg PV Velocity Time Integral 11.5 cm LV E' Lateral Velocity 10.6 cm/s Mitral E to LV E' Lateral Ratio 9.7 LV E' Septal Velocity 6.3 cm/s Mitral E to LV E' Septal Ratio 16.2
[2017-05-20 16:00] VITALS: BP 110/62
[2017-05-21] VITALS: BP 114/60
[2017-05-21 03:40] LABS: ABSOLUTE BASOPHIL COUNT 0 /CUMM (0.0-0.2); ABSOLUTE EOSINOPHIL COUNT 0 /CUMM (0.0-0.7); ABSOLUTE LYMPH COUNT 0.3 /CUMM (1.2-3.4); ABSOLUTE MONOCYTE COUNT 0.2 /CUMM (0.10-0.60); BASOPHIL % 0 % (0.0-2.0); EOSINOPHIL % 0 % (0-5); GRANULOCYTE % 95.5 % (42.2-75.2); HEMATOCRIT 29.7 % (37-47); MEAN CORPUSCULAR HGB 29.8 PG (27.0-31.0); MEAN CORPUSCULAR HGB CONC 31.9 G/DL (33.0-37.0); MEAN CORPUSCULAR VOLUME 93.4 FL (81.0-99.0); MEAN PLATELET VOLUME 10.7 FL (7.4-10.4); RBC DISTRIBUTION WIDTH 21.4 % (11.5-14.5); RED BLOOD CELL CT 3.18 /CUMM (4.20-5.40); WHITE BLOOD CELL COUNT 10.4 /CUMM (4.8-10.8)
[2017-05-21 03:47] LABS: PT 10.2 SEC (9.4-12.5); PTT 29 SEC (25-37)
[2017-05-21 03:59] LABS: PLATELET COUNT 27 /CUMM (130-400)
--- NOTE | 2017-05-21 07:37 | PN- Hematology ---
Subjective Subjective: She is somnolent but arousable. She continues to be in atrial fibrillation. She is now on amiodarone. She is off Levophed this morning. Review of Systems: Limited due to intubation. Objective Vital Signs and I&Os Vital Signs Date Time Temp Pulse Resp B/P B/P Pulse O2 O2 Flow FiO2 Mean Ox Delivery Rate 05/21 0613 50 05/21 0528 120 144/83 05/21 0400 93 Ventilator 50% 05/21 0337 50 05/21 0047 50 05/21 0000 96 Ventilator 50% 05/21 0000 98.4 104 14 114/60 96 Ventilator 50% 05/20 2222 50 05/20 2000 93 Ventilator 50% 05/20 1913 50 05/20 1628 50 05/20 1600 97 Ventilator 60% 05/20 1600 99.0 104 14 110/62 95 Ventilator 50% 05/20 1431 60 05/20 1200 98 Ventilator 60% 05/20 1145 60 05/20 0810 100 05/20 0800 98 Ventilator 100% 05/20 0800 99.8 120 12 122/82 98 Ventilator 100% Intake & Output 05/21 0800 05/21 0000 05/20 1600 05/20 0800 05/20 0000 05/19 1600 Intake Total 1006 1166 9856 128 6071 Output Total 95 60 30 280 290 Balance 911 1106 0512 539 1108 Intake, IV 1006 1166 0801 781 3257 Intake, Oral 0 0 0 Number 0 0 Bowel Movements Output, 0 0 Gastric Drainage Output, Urine 95 60 30 280 290 Patient 115.694 kg 90.718 kg Weight Weight Bed scale Bed scale Reported by Patient Measurement Method Physical Exam General Appearance: sedated, intubated Ears, Nose, Throat: ET tube in place Respiratory: chest non-tender, crackles, respiratory distress, on ventilator, FiO2 50% Cardiovascular: tachycardia, irregularly irregular Abdomen: normal bowel sounds, soft, non-tender Extremities: bilateral upper extremity 2+ edema, hyperpigmented lower extremities Neurologic/Psychiatric: intubated and sedated Current Medications: Current Medications Sig/Ric Start time Last Medication Dose Route Stop Time Status Admin Acetaminophen 650 MG Q6P PRN 05/19 0300 AC PO Acetaminophen 1,000 MG Q6P PRN 05/19 0300 AC IV Amiodarone HCl/ 360 MG Q12H 05/20 1045 AC 05/21 Dextrose IV 0528 N/A 1 UNIT Ceftazidime 1,000 MG Q12 05/19 1000 AC 05/20 IV 2148 Digoxin 0.25 MG ONCE ONE 05/20 1000 DC 05/20 IV 05/20 1001 0804 Doxycycline Hyclate 100 MG Q12 05/20 2200 AC 05/20 Sodium Chloride 100 ML IV 2148 Doxycycline Hyclate 100 MG Q12 05/19 2200 DC 05/20 Dextrose/Water 100 ML IV 0940 Hydrocortisone 100 MG Q8 05/19 1639 AC 05/21 Sodium Succinate IV 0528 Insulin Aspart 0 AT BEDTIME 05/21 2200 CAN SC Insulin Aspart 0 Q6 05/21 0600 CAN SC Insulin Aspart 8 UNITS ONCE ONE 05/21 0015 DC 05/21 SC 05/21 0016 0004 Insulin Human Regular 0 Q6 05/21 0600 05/21 SC 0530 Norepinephrine 4 MG Q30H 05/20 0800 AC 05/20 Dextrose/Water 250 ML IV 0800 Norepinephrine 4 MG Q6H 05/19 2200 ME 05/20 Dextrose/Water 250 ML IV 0516 Pantoprazole Sodium 40 MG DAILY 05/20 0030 05/20 IV 0806 Propofol 1,000 MG Q24H 05/20 0615 05/21 N/A 1 UNIT IV 0045 Sodium Chloride 1,000 ML Q10H 05/19 1915 AC 05/21 IV 05/21 1113 0533 Vancomycin HCl 1,000 MG DAILY 05/19 1000 AC 05/20 Sodium Chloride 250 ML IV 0940 Results Last 24 Hours of Lab Results: Laboratory Tests 05/21 05/21 0445 0306 Blood Gas pH (7.35 - 7.45 PH) 7.39 pCO2 (35 - 45 TORR) 27 L pO2 (80 - 100 TORR) 95 HCO3 (21 - 28 MEQ/L) 16 L ABG O2 Sat (Measured) (>96.0 %) 96.0 P-50 (Temp Corrected) Y Carboxyhemoglobin (1.5 - 5.0 %) 0.3 L O2 Concentration % 50% Temperature (97.0 - 100.0 FARH) 98.4 Respiration Rate (BPM) 14 O2 Delivery Method ESPRIT Vent Mode AC Expiratory Pressure (CMH2O/P) 5 Tidal Volume (CC) 550 Chemistry Sodium (137 - 145 mmol/L) 142 Potassium (3.5 - 5.1 mmol/L) 5.9 H Chloride (98 - 107 mmol/L) 104 Carbon Dioxide (22 - 30 mmol/L) 18 L Anion Gap (5 - 16) 20 H BUN (7 - 17 mg/dL) 73 H Creatinine (0.5 - 1.0 mg/dL) 2.5 H Estimated GFR (>60 ml/min) 18 L Glucose (65 - 99 mg/dL) 331 H Calcium (8.4 - 10.2 mg/dL) 7.6 L Phosphorus (2.5 - 4.5 mg/dL) 7.3 H Magnesium (1.6 - 2.3 mg/dL) 2.0 Total Bilirubin (0.2 - 1.3 mg/dL) 0.5 AST (14 - 36 U/L) 14 ALT (9 - 52 U/L) 41 Troponin I (< 0.11 ng/ml) 0.36 *H Albumin (3.5 - 5.0 g/dL) 2.0 L Coagulation PT (9.4 - 12.5 SEC) 10.2 INR (0.90 - 1.19) 0.97 APTT (25 - 37 SEC) 29 Fibrinogen Activity (200 - 393 MG/DL) 388 Hematology CBC w Diff MAN DIFF ORDERED WBC (4.8 - 10.8 /CUMM) 10.4 RBC (4.20 - 5.40 /CUMM) 3.18 L Hgb (12.0 - 16.0 G/DL) 9.5 L Hct (37 - 47 %) 29.7 L MCV (81.0 - 99.0 FL) 93.4 MCH (27.0 - 31.0 PG) 29.8 RDW (11.5 - 14.5 %) 21.4 H Plt Count (130 - 400 /CUMM) 27 *L MPV (7.4 - 10.4 FL) 10.7 H Gran % (42.2 - 75.2 %) 95.5 H Lymphocytes % (20.5 - 51.1 %) 2.6 L Monocytes % (1.7 - 9.3 %) 1.9 Eosinophils % (0 - 5 %) 0 Basophils % (0.0 - 2.0 %) 0 Absolute Granulocytes (1.4 - 6.5 /CUMM) 10.0 H Segmented Neutrophils (42.2 - 75.2 %) 98 H Absolute Lymphocytes (1.2 - 3.4 /CUMM) 0.3 L Lymphocytes (20.5 - 51.1 %) 1 L Monocytes (1.7 - 9.3 %) 1 L Absolute Monocytes (0.10 - 0.60 /CUMM) 0.2 Absolute Eosinophils (0.0 - 0.7 /CUMM) 0 Absolute Basophils (0.0 - 0.2 /CUMM) 0 Platelet Estimate (ADEQUATE) DECREASED Polychromasia 1+ Hypochromic-Microcytic 1+ Poikilocytosis 1+ Ovalocytes 1+ [place] Cells FEW PUBS MCHC (33.0 - 37.0 G/DL) 31.9 L Miscellaneous Phlebotomy Draw Site LEFT RADIAL Other Body Source Fld Total RBCs Counted (%) 100 05/20 05/20 05/20 05/20 05/20 2051 1500 0950 0830 0800 Blood Gas pH (7.35 - 7.45 PH) 7.38 pCO2 (35 - 45 TORR) 32 L pO2 (80 - 100 TORR) 153 H HCO3 (21 - 28 MEQ/L) 18 L ABG O2 Sat (Measured) (>96.0 %) 98.0 Carboxyhemoglobin (1.5 - 5.0 %) 0.3 L O2 Concentration % 80 Respiration Rate (BPM) 14 O2 Delivery Method VENT Vent Mode AC Expiratory Pressure (CMH2O/P) 5 Tidal Volume (CC) 550 Chemistry Glucose (65 - 99 mg/dL) 286 H Troponin I (< 0.11 ng/ml) 0.34 *H 0.27 *H 0.25 *H Cancelled Miscellaneous Phlebotomy Draw Site LEFT RADIAL Assessment/Plan Assessment/Recommendations: Ms. 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 She has been having new cough a few days ago. CTA demonstrated moderate atelectasis/consolidation in the left upper and lower lobes. There was mild right base atelectasis and moderate left and small-to- moderate right pleural effusions. She remains hypotensive and is on Levophed. She is being treated empirically for sepsis. Sources include lung and skin. She has skin breakdown in the lower extremities. Platelet count has been stable. She is currently on stress dose steroid with hydrocortisone 100 mg [id number]. She should contiue this. She has no obvious bleeding. Given her current condition, I would hold off on any second line therapy unless bleeding. IVIG will likely worsen her fluid status if she is not symptomatic from ITP. DIC is negative. She will continue on antibiotics as per ID and primary. Cardiology is assisting with atrial fibrillation. Shock: -management as per ICU -empiric broad spectrum antibiotics -follow up cultures Chronic ITP: -currently on hydrocortisone 100 mg every 8 hours -continue high dose hydrocortisone -check DIC panel daily x 2 days: PT/PTT, Fibrinogen -transfusion with platelet if <20,000 -IVIG and transfusion if acutely bleeding -will likely need second line therapy once stable Atrial fibrillation with RVR: -cardiology following -amiodarone drip Please call [phone] with any questions or concerns. Problem List: 1. CHF (congestive heart failure) 2. Sepsis 3. Atrial fibrillation with RVR 4. Thrombocytopenia
--- NOTE | 2017-05-21 07:37 | PN- Cardiology ---
Subjective Subjective: Patient remains intubated, more awake, responds approprietly to verbal stimuli. Review of Systems: Not obtainable due to intubation Objective Vital Signs and I&Os Vital Signs Date Time Temp Pulse Resp B/P B/P Pulse O2 O2 Flow FiO2 Mean Ox Delivery Rate 05/21 0613 50 05/21 0528 120 144/83 05/21 0400 93 Ventilator 50% 05/21 0337 50 05/21 0047 50 05/21 0000 96 Ventilator 50% 05/21 0000 98.4 104 14 114/60 96 Ventilator 50% 05/20 2222 50 05/20 2000 93 Ventilator 50% 05/20 1913 50 05/20 1628 50 05/20 1600 97 Ventilator 60% 05/20 1600 99.0 104 14 110/62 95 Ventilator 50% 05/20 1431 60 05/20 1200 98 Ventilator 60% 05/20 1145 60 05/20 0810 100 05/20 0800 98 Ventilator 100% 05/20 0800 99.8 120 12 122/82 98 Ventilator 100% Intake & Output 05/21 0800 05/21 0000 05/20 1600 05/20 0800 05/20 0000 05/19 1600 Intake Total 1006 1166 3768 145 4894 Output Total 95 60 30 280 290 Balance 911 1106 9305 195 2557 Intake, IV 1006 1166 8230 442 3418 Intake, Oral 0 0 0 Number 0 0 Bowel Movements Output, 0 0 Gastric Drainage Output, Urine 95 60 30 280 290 Patient 255 lb 200 lb Weight Weight Bed scale Bed scale Reported by Patient Measurement Method Physical Exam: intubated, alert, awake HEENT-PERRLA Neck-obese,unable to assess JVP Lungs-clear anteriorly, decreased BS at both bases Heart-S1S1 irregular, no murmur Abdomen-soft, not tender, BS+,no organomegaly Extr-1+ edema with significant bilateral stasis dermatitis Vascular-diminished distal pulses, no carotid bruit Neuro-non focal, awake, alert, responds to verbal stimuli Skin-no rashes Current Medications: Current Medications Sig/Ric Start time Last Medication Dose Route Stop Time Status Admin Acetaminophen 650 MG Q6P PRN 05/19 0300 AC PO Acetaminophen 1,000 MG Q6P PRN 05/19 0300 AC IV Amiodarone HCl/ 360 MG Q12H 05/20 1045 AC 05/21 Dextrose IV 0528 N/A 1 UNIT Ceftazidime 1,000 MG Q12 05/19 1000 AC 05/20 IV 2148 Digoxin 0.25 MG ONCE ONE 05/20 1000 DC 05/20 IV 05/20 1001 0804 Doxycycline Hyclate 100 MG Q12 05/20 2200 AC 05/20 Sodium Chloride 100 ML IV 2148 Doxycycline Hyclate 100 MG Q12 05/19 2200 DC 05/20 Dextrose/Water 100 ML IV 0940 Hydrocortisone 100 MG Q8 05/19 1639 05/21 Sodium Succinate IV 0528 Insulin Aspart 0 AT BEDTIME 05/21 2200 CAN SC Insulin Aspart 0 Q6 05/21 0600 CAN SC Insulin Aspart 8 UNITS ONCE ONE 05/21 0015 DC 05/21 SC 05/21 0016 0004 Insulin Human Regular 0 Q6 05/21 0600 05/21 SC 0530 Norepinephrine 4 MG Q30H 05/20 0800 AC 05/20 Dextrose/Water 250 ML IV 0800 Norepinephrine 4 MG Q6H 05/19 2200 DC 05/20 Dextrose/Water 250 ML IV 0516 Pantoprazole Sodium 40 MG DAILY 05/20 0030 AC 05/20 IV 0806 Propofol 1,000 MG Q24H 05/20 0615 AC 05/21 N/A 1 UNIT IV 0045 Sodium Chloride 1,000 ML Q10H 05/19 1915 AC 05/21 IV 05/21 1113 0533 Vancomycin HCl 1,000 MG DAILY 05/19 1000 AC 05/20 Sodium Chloride 250 ML IV 0940 Results Last 48 Hrs of Labs/Mics: Laboratory Tests 05/21/17 0445: pH 7.39, pCO2 27 L, pO2 95, HCO3 16 L, ABG O2 Sat (Measured) 96.0, P-50 (Temp Corrected) Y, Carboxyhemoglobin 0.3 L, O2 Concentration % 50%, Temperature 98.4 , Respiration Rate 14, O2 Delivery Method ESPRIT, Vent Mode AC, Expiratory Pressure 5, Tidal Volume 550, Phlebotomy Draw Site LEFT RADIAL 05/21/17 0306: Anion Gap 20 H, Estimated GFR 18 L, Glucose 331 H, Calcium 7.6 L, Phosphorus 7.3 H, Magnesium 2.0, Total Bilirubin 0.5, AST 14, ALT 41, Troponin I 0.36 *H, Albumin 2.0 L, PT 10.2, INR 0.97, APTT 29, Fibrinogen Activity 388, CBC w Diff MAN DIFF ORDERED, RBC 3.18 L, MCV 93.4, MCH 29.8, RDW 21.4 H, MPV 10.7 H, Gran % 95.5 H, Lymphocytes % 2.6 L, Monocytes % 1.9, Eosinophils % 0, Basophils % 0, Absolute Granulocytes 10.0 H, Segmented Neutrophils 98 H, Absolute Lymphocytes 0.3 L, Lymphocytes 1 L, Monocytes 1 L, Absolute Monocytes 0.2, Absolute Eosinophils 0, Absolute Basophils 0, Platelet Estimate DECREASED, Polychromasia 1+, Hypochromic-Microcytic 1+, Poikilocytosis 1+, Ovalocytes 1+, [place] Cells FEW, PUBS MCHC 31.9 L, Fld Total RBCs Counted 100 05/20/17 2051: Glucose 286 H, Troponin I 0.34 *H 05/20/17 1500: Troponin I 0.27 *H 05/20/17 0950: pH 7.38, pCO2 32 L, pO2 153 H, HCO3 18 L, ABG O2 Sat (Measured) 98.0, Carboxyhemoglobin 0.3 L, O2 Concentration % 80, Respiration Rate 14, O2 Delivery Method VENT, Vent Mode AC, Expiratory Pressure 5, Tidal Volume 550, Phlebotomy Draw Site LEFT RADIAL 05/20/17 0830: Troponin I 0.25 *H 05/20/17 0800: Troponin I Cancelled 05/20/17 0445: pH 7.42, pCO2 38, pO2 40 *L, HCO3 24, ABG O2 Sat (Measured) 66.0 L, P-50 (Temp Corrected) Y, Carboxyhemoglobin 0.3 L, O2 Concentration % 60%, Temperature 98.8 , Respiration Rate 14, O2 Delivery Method ESPRIT, Vent Mode AC, Expiratory Pressure 5, Tidal Volume 550, Phlebotomy Draw Site RIGHT BRACHIAL 05/20/17 0300: Troponin I 0.23 *H 05/20/17 0300: Anion Gap 14, Estimated GFR 33 L, Glucose 122 H, Calcium 7.9 L, Phosphorus 5.1 H, Magnesium 2.0, Total Bilirubin 0.7, AST 20, ALT 41, Albumin 2.2 L, CBC w Diff MAN DIFF ORDERED, RBC 3.65 L, MCV 92.0, MCH 29.9, RDW 22.0 H, MPV 9.8, Gran % 95.0 H, Lymphocytes % 2.8 L, Monocytes % 2.1, Eosinophils % 0, Basophils % 0.1, Absolute Granulocytes 14.6 H, Segmented Neutrophils 95 H, Absolute Lymphocytes 0.4 L, Lymphocytes 5 L, Absolute Monocytes 0.3, Absolute Eosinophils 0, Absolute Basophils 0, Platelet Estimate VERIFIED BY SMEAR, Polychromasia 1+, Poikilocytosis 1+, Anisocytosis 1+, [place] Cells 1+, Elliptocytes 1+, PUBS MCHC 32.5 L 05/19/172231: Lactic Acid Cancelled 05/19/172034: Troponin I 0.19 *H 05/19/171999: Lactic Acid 1.4 05/19/170: pH 7.59 H, pCO2 25 L, pO2 93, HCO3 23, ABG O2 Sat (Measured) 97.0, P-50 (Temp Corrected) N, Carboxyhemoglobin 0.5 L, O2 Concentration % 60%, Temperature 98.9 , Respiration Rate 20, O2 Delivery Method ESPRIT VENT, Vent Mode AC, Expiratory Pressure 5, Tidal Volume 550, Phlebotomy Draw Site RIGHT BRACHIAL 05/19/17 1750: Anion Gap 11, Estimated GFR 33 L, Glucose 93, Calcium 7.8 L, Phosphorus 4.6 H , Magnesium 2.0, Total Bilirubin 0.5, AST 21, ALT 37, Albumin 2.2 L, CBC w Diff NO MAN DIFF REQ, RBC 3.64 L, MCV 93.3, MCH 29.8, RDW 21.5 H, MPV 10.0, Gran % 96.2 H, Lymphocytes % 2.2 L, Monocytes % 1.6 L, Eosinophils % 0, Basophils % 0, Absolute Granulocytes 17.8 H, Absolute Lymphocytes 0.4 L, Absolute Monocytes 0.3, Absolute Eosinophils 0, Absolute Basophils 0, PUBS MCHC 32.0 L 05/19/17 1620: pH 7.37, pCO2 49 H, pO2 83, HCO3 28, ABG O2 Sat (Measured) 94.0 L, P-50 (Temp Corrected) N, Carboxyhemoglobin 0.7 L, O2 Concentration % 6L, Temperature 99.0, O2 Delivery Method NC, Phlebotomy Draw Site RIGHT BRACHIAL 05/19/17 1430: Troponin I Cancelled 05/19/17 1430: Anion Gap 10, Estimated GFR 31 L, BUN/Creatinine Ratio 32.5 H, Lactic Acid 1.2 , Troponin I 0.17 *H, Cortisol PM Sample 16.6 H, CBC w Diff NO MAN DIFF REQ, RBC 3.66 L, MCV 91.8, MCH 29.7, RDW 21.8 H, MPV 9.3, Gran % 95.1 H, Lymphocytes % 2.1 L, Monocytes % 2.7, Eosinophils % 0, Basophils % 0.1, Absolute Granulocytes 14.2 H, Absolute Lymphocytes 0.3 L, Absolute Monocytes 0.4, Absolute Eosinophils 0, Absolute Basophils 0, PUBS MCHC 32.3 L 05/19/17 1425: pH 7.38, pCO2 48 H, pO2 53 L, HCO3 28, ABG O2 Sat (Measured) 84.0 L, P-50 ( Temp Corrected) N, Carboxyhemoglobin 1.5, O2 Concentration % 6L, Temperature 99.8, O2 Delivery Method N/C, Phlebotomy Draw Site LEFT BRACH 05/19/17 1047: Troponin I 0.14 *H Microbiology 05/19 173 URINE ROUT: Legionella Antigen - COMP 05/19 173 URINE ROUT: Streptococcus pneumoniae Antigen (M - COMP 05/19 1040 NASOPHARYN: Influenza Virus A & B Rapid Smear - COMP Recent Imaging Studies: Echo-normal LVEF, mild MR, TR, moderate pulmonary HTN CXR-bibasilar densities unchanged Tely-AF 100-120 bpm Assessment/Plan Assessment/Plan 1. Acute hypoxic respiratory failure/septic shock likely due to pneumonia, remains intubated, but awake, alert. Off pressors. BP stable now. Blood cultures negative. On broad spectrum antibiotics 2. Encephalopathy likely metaboic due to infection/hypoxia/hypotension- significantly improved mental status 3. Rapid atrial fibrillation. Rate better controlled with iv amiodarone. Patient had atrial fibrillation last admission in April with rapid rate, she was not hypotensive and tolerated AF well. There is no evidence of tachycardia-induced cardiomyopathy, LVEF improved on current echo. No indication for urgent cardioversion, especially if anticoagulation may not be restarted due to low platelet count. 4. GARCÍA with hyperkalemia, increased creatinine today, likely ATN due to hypotension. 5. Possible LE cellulitis 6. Thrombocytopenia/ITP, no hydrocortison, seen by hematology, may need IVIG in the future 7. PVD with severe left SFA disease, no surgical intervention as per vascular surgery 8. Abnormal troponin likely due to demand ischemia/hypoxia. continue iv fluids repeat CXR continue broad spectrum atb check TSH repeat K+ in 6 hours, Kayxalate if K+ above 6.0 BMP, CBC in the morning continue iv Amiodarone 0.5 mg/min no anticoagulation for now due to low platelet count hold metoprolol and cardizem due to previous hypotension, we will restart metoprolol once BP stable and after extubation reduce oxygen and start weaning trials Critical care statement: Patient is critically ill as indicated by the following. Acute respiratory failure, with hypoxia, septic shock, unresponsivness, rapid atrial fibrillation. The patient required 40 minutes of my undivided attention in the past 24 hours for one of the previously noted life-threatening diagnoses. Criticale care interventions have including monitoring and adjustment of pressors, controlling rapid heart rate, treatment of shock and ongoing metabolic managment. Continue telemetry? Yes
[2017-05-21 08:00] VITALS: BP 130/60
--- NOTE | 2017-05-21 08:01 | RADIOLOGY REPORT ---
EXAMINATION: XR PORTABLE CHEST CLINICAL INFORMATION: Intubated. COMPARISON: Portable chest x-ray dated 05/20/2017 at 10:03 AM. TECHNIQUE: Portable frontal view of the chest was obtained. FINDINGS: The tip of the endotracheal tube is slightly difficult to visualize, however appears to be located approximately 5 cm proximal to the level of the krystal, in satisfactory position. A right-sided central line is present, the tip is in the distal SVC. An NG tube is visualized which extends below the diaphragms. LUNGS: The lung volumes are low, overall decreased compared to the prior study of 05/20/2017 at 10:03 AM. Increasing density in the bilateral lung bases is noted, the left lung base was incompletely included in the previous study, the degree of density in the left retrocardiac region is probably overall stable compared to the prior study of 05/20/2017 at 6:10 AM. The central pulmonary vasculature is mildly prominent, and unchanged compared to the prior studies and suggestive of pulmonary vascular congestion. IMPRESSION: 1. Lines and tubes in stable position as described in detail above. 2. Decreased lung volumes compared to the most recent prior study, with bibasilar densities are stable, more prominent in the left retrocardiac region.
--- NOTE | 2017-05-21 08:15 | PN- Resident CRCU ---
Jaron RAMOS,[facility] 05/21/17 0814: Subjective HPI/CRCU Issues: Atrial Fibrilliation Hypotension Acute Hypoxic Respiratory Failure 24 Hour Events: Weaned off Levophed. Running on amiodarone drip at 0.5mg for rate control. FiO2 down to 50%. Still on Propafol. Her mentation is better. Denies being in pain by shaking her head. Objective Vital Signs & I&O Last 8 Hrs of Vitals and I&O: . Exam General Appearance: alert, awake, sedated, intubated, mild distress Head: atraumatic, normal appearance Respiratory: normal breath sounds, chest non-tender, intubated Cardiovascular: irregularly irregular Gastrointestinal: soft, non-tender Extremities: stasis skin changes Skin: lower extremities stasis skin changes Skin Temp/Moisture Exam: Warm/Dry Sepsis Skin Exam (color): Normal for Ethnicity Current Medications: Current Medications Sig/Ric Start time Last Medication Dose Route Stop Time Status Admin Acetaminophen 650 MG Q6P PRN 05/19 0300 AC PO Acetaminophen 1,000 MG Q6P PRN 05/19 0300 AC IV Amiodarone HCl/ 360 MG Q12H 05/20 1045 AC 05/21 Dextrose IV 0528 N/A 1 UNIT Ceftazidime 1,000 MG Q12 05/19 1000 AC 05/20 IV 2148 Digoxin 0.25 MG ONCE ONE 05/20 1000 DC 05/20 IV 05/20 1001 0804 Doxycycline Hyclate 100 MG Q12 05/20 2200 AC 05/20 Sodium Chloride 100 ML IV 2148 Doxycycline Hyclate 100 MG Q12 05/19 2200 DC 05/20 Dextrose/Water 100 ML IV 0940 Hydrocortisone 100 MG Q8 05/19 1639 AC 05/21 Sodium Succinate IV 0528 Insulin Aspart 0 AT BEDTIME 05/21 2200 CAN SC Insulin Aspart 0 Q6 05/21 0600 CAN SC Insulin Aspart 8 UNITS ONCE ONE 05/21 0015 DC 05/21 SC 05/21 0016 0004 Insulin Human Regular 0 Q6 05/21 0600 AC 05/21 SC 0530 Insulin Human Regular 10 UNITS .STK-MED ONE 05/20 2352 DC IV 05/20 2353 Norepinephrine 4 MG Q30H 05/20 0800 AC 05/20 Dextrose/Water 250 ML IV 0800 Pantoprazole Sodium 40 MG DAILY 05/20 0030 AC 05/20 IV 0806 Propofol 1,000 MG Q24H 05/20 0615 AC 05/21 N/A 1 UNIT IV 0045 Sodium Chloride 1,000 ML Q10H 05/19 1915 AC 05/21 IV 05/21 1113 0533 Vancomycin HCl 1,000 MG DAILY 05/19 1000 05/20 Sodium Chloride 250 ML IV 0940 Impression/Plan Impression/Problem List Impression: 86 year old woman with past medical history of hypertension, hyperlipidemia, [place] s/p PCI with stent, diabetes mellitus, and restless leg syndrome, history of atrial fibrillation with anticoagulation on hold due to severe thrombocytopenia was sent in from [facility] care facility for hypoxia, leukocytosis and productive cough. She was admitted on telemetry floor and transfered to ICU yesterday after patient desaturated became unresponsive. Assessment and Plan: Acute hypoxic respiratory failure likely secondary to HCAP: * Her white count has normalized and she's been afebrile. Antibiotics have been discontinued. * Vancomycin has been discontinued due to GARCÍA. Will follow vanc level. If less than 15, will have to give today's dose. * Currently intubated with FiO2 of 50%. * CXR from today shows lines and tubes in position. And stable bibasilar densities * Repeat ABG today - pending. * Will follow up sputum culture. * ID recs appreciated. Atrial Fibrilliation with Hypotension: * Oral metoprolol and cardizem on hold due to hypotension. * Digoxin has been discontinued. * Currently on Amiodarone drip at 0.5mg. Will consider increasing back to 1mg * AC on hold due to thrombocytopenia * Will continue IVF with NS @ 100ml/hr * Levophed was discontinued on 05/20 as blood pressure had been stable. * Echo - Normal left ventricular ejection fraction visually estimated at > 60% . Immune Thrombocytopenia: * Previously responded to oral Prednisone. She was on high dose 150mg/day * Currently on IV Hydrocortisone 100mg q8. Will continue. * Daily CBC * Hematology recommends to transfuse if Plt count <20K * DIC panel has been negative today. Will follow for another two days. GARCÍA on CKD: * Acute rise in Cr to 2.5 from 1.5 yesterday. * Etiology could be multifactorial. She did have contrast for CTA. Could also be due to her hypotension. * UA and lytes - pending * Nephro consult for further input. Lower Extremity Skin Changes: * Was evaluated by vascular surgery. Recommend no surgical intervention at this time. * Cellulitis seems unlikely. History of restless leg syndrome: * Sinemet was recently discontinued * Lyrica on hold currently. DVT Prophylaxis: ALPS Code: Full Problem List: 1. A-fib Pain Ratin Tomorrow's Labs & Rationales: CBC, ICU bundle Plan DVT/Prophylaxis: mechanical Jordi Pyle MD 05/21/17 1042: Attending MD Review Statement Attending Sign Off Attending Cosign Statement: I have: examined this patient, reviewed al EMR data, personally reviewd images, discussd w/resident/PA/WING COVERER, discussed mgmt plan w/ida, discussed mgmt plan w/CM, discussed mgmt plan w/pt, agreed w/resident/PA/WING COVERER, amended to note. Other Findings: Impression 86 year old woman * resoloved septic shock * a.fib RVR * acute hypoxemic respiratory failure * GARCÍA Plan -off levophed -tailor abx per ID -cardiology, ID f/u -no PE -f/u hematology recommendations, stress steroids can be tapered -repeat abg today -nephrology consultation DVT prophylaxis at all times TTS 35 min
--- NOTE | 2017-05-21 09:53 | PN- Infect Dx ---
Subjective Subjective: Afebrile on steroids. Her blood pressure has improved, now off pressors. She does not offer any complaints. Objective Last 24 Hrs of Vital Signs/I&O Vital Signs Date Time Temp Pulse Resp B/P B/P Pulse O2 O2 Flow FiO2 Mean Ox Delivery Rate 05/21 0830 40 05/21 0613 50 05/21 0528 120 144/83 05/21 0400 93 Ventilator 50% 05/21 0337 50 05/21 0047 50 05/21 0000 96 Ventilator 50% 05/21 0000 98.4 104 14 114/60 96 Ventilator 50% 05/20 2222 50 05/20 2000 93 Ventilator 50% 05/20 1913 50 05/20 1628 50 05/20 1600 97 Ventilator 60% 05/20 1600 99.0 104 14 110/62 95 Ventilator 50% 05/20 1431 60 05/20 1200 98 Ventilator 60% 05/20 1145 60 Intake & Output 05/21 1600 05/21 0800 05/21 0000 Intake Total 1006 1166 Output Total 95 60 Balance 911 1106 Intake, IV 1006 1166 Intake, Oral 0 0 Number 0 Bowel Movements Output, 0 0 Gastric Drainage Output, Urine 95 60 Physical Exam Other Physical Findings: She is awake and alert on the ventilator in no acute distress Neck right IJ triple-lumen catheter with no inflammation at the site Lungs scattered rhonchi Heart irregular rhythm with no murmur Abdomen is obese, soft, nontender with positive bowel sounds Extremities chronic changes both lower extremities Faust catheter remains in place Results Last 24 Hours of Lab Results: Laboratory Tests 05/21 05/21 0445 0306 Blood Gas pH (7.35 - 7.45 PH) 7.39 pCO2 (35 - 45 TORR) 27 L pO2 (80 - 100 TORR) 95 HCO3 (21 - 28 MEQ/L) 16 L ABG O2 Sat (Measured) (>96.0 %) 96.0 P-50 (Temp Corrected) Y Carboxyhemoglobin (1.5 - 5.0 %) 0.3 L O2 Concentration % 50% Temperature (97.0 - 100.0 FARH) 98.4 Respiration Rate (BPM) 14 O2 Delivery Method ESPRIT Vent Mode AC Expiratory Pressure (CMH2O/P) 5 Tidal Volume (CC) 550 Chemistry Sodium (137 - 145 mmol/L) 142 Potassium (3.5 - 5.1 mmol/L) 5.9 H Chloride (98 - 107 mmol/L) 104 Carbon Dioxide (22 - 30 mmol/L) 18 L Anion Gap (5 - 16) 20 H BUN (7 - 17 mg/dL) 73 H Creatinine (0.5 - 1.0 mg/dL) 2.5 H Estimated GFR (>60 ml/min) 18 L Glucose (65 - 99 mg/dL) 331 H Calcium (8.4 - 10.2 mg/dL) 7.6 L Phosphorus (2.5 - 4.5 mg/dL) 7.3 H Magnesium (1.6 - 2.3 mg/dL) 2.0 Total Bilirubin (0.2 - 1.3 mg/dL) 0.5 AST (14 - 36 U/L) 14 ALT (9 - 52 U/L) 41 Troponin I (< 0.11 ng/ml) 0.36 *H Albumin (3.5 - 5.0 g/dL) 2.0 L TSH (0.270 - 4.200 uIU/mL) 0.208 L Coagulation PT (9.4 - 12.5 SEC) 10.2 INR (0.90 - 1.19) 0.97 APTT (25 - 37 SEC) 29 Fibrinogen Activity (200 - 393 MG/DL) 388 Hematology CBC w Diff MAN DIFF ORDERED WBC (4.8 - 10.8 /CUMM) 10.4 RBC (4.20 - 5.40 /CUMM) 3.18 L Hgb (12.0 - 16.0 G/DL) 9.5 L Hct (37 - 47 %) 29.7 L MCV (81.0 - 99.0 FL) 93.4 MCH (27.0 - 31.0 PG) 29.8 RDW (11.5 - 14.5 %) 21.4 H Plt Count (130 - 400 /CUMM) 27 *L MPV (7.4 - 10.4 FL) 10.7 H Gran % (42.2 - 75.2 %) 95.5 H Lymphocytes % (20.5 - 51.1 %) 2.6 L Monocytes % (1.7 - 9.3 %) 1.9 Eosinophils % (0 - 5 %) 0 Basophils % (0.0 - 2.0 %) 0 Absolute Granulocytes (1.4 - 6.5 /CUMM) 10.0 H Segmented Neutrophils (42.2 - 75.2 %) 98 H Absolute Lymphocytes (1.2 - 3.4 /CUMM) 0.3 L Lymphocytes (20.5 - 51.1 %) 1 L Monocytes (1.7 - 9.3 %) 1 L Absolute Monocytes (0.10 - 0.60 /CUMM) 0.2 Absolute Eosinophils (0.0 - 0.7 /CUMM) 0 Absolute Basophils (0.0 - 0.2 /CUMM) 0 Platelet Estimate (ADEQUATE) DECREASED Polychromasia 1+ Hypochromic-Microcytic 1+ Poikilocytosis 1+ Ovalocytes 1+ Alberto Cells FEW PUBS MCHC (33.0 - 37.0 G/DL) 31.9 L Miscellaneous Phlebotomy Draw Site LEFT RADIAL Other Body Source Fld Total RBCs Counted (%) 100 Toxicology Digoxin (0.8 - 2.0 ng/mL) Pending 05/20 05/20 05/20 2051 1500 0950 Blood Gas pH (7.35 - 7.45 PH) 7.38 pCO2 (35 - 45 TORR) 32 L pO2 (80 - 100 TORR) 153 H HCO3 (21 - 28 MEQ/L) 18 L ABG O2 Sat (Measured) (>96.0 %) 98.0 Carboxyhemoglobin (1.5 - 5.0 %) 0.3 L O2 Concentration % 80 Respiration Rate (BPM) 14 O2 Delivery Method VENT Vent Mode AC Expiratory Pressure (CMH2O/P) 5 Tidal Volume (CC) 550 Chemistry Glucose (65 - 99 mg/dL) 286 H Troponin I (< 0.11 ng/ml) 0.34 *H 0.27 *H Miscellaneous Phlebotomy Draw Site LEFT RADIAL Last 24 Hours of Silv[place] Results: Sputum culture May 20 positive for Staph aureus and yeast Blood cultures 2 May 19 negative Urine culture May 19 negative Recent Imaging Studies: Chest x-ray May 21 reveals bibasilar densities Assessment/Plan Impression: Improved, with blood pressure now stable off pressors, decreased oxygen requirements, though still ventilator dependent, and with a normalization of her white blood cell count, with temperatures normal, on steroids, but with acute renal failure possibly secondary to the recent contrast or ATN, for example secondary to sepsis, and persistent thrombocytopenia despite high dose steroids. She remains on Vancomycin, Doxycycline and Ceftazidime for possible pneumonia but, with her sputum culture positive for Staph aureus, her antibiotics can be adjusted. Suggestion: 1. Follow-up final sputum culture 2. 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 Consider Renal input 4. Discontinue Doxycycline and Ceftazidime 5. Add Vancomycin random level to this morning's labs 6. Hold on further Vancomycin pending above, but would re-dose with 1 g IV 1 if level is less than 15 and recheck a random Vancomycin level in the a.m.
--- NOTE | 2017-05-21 11:50 | Cons- Nephrology ---
General Information and HPI Consulting Request Date of Consult: 05/21/17 Requested By: Jordi Pyle MD Reason for Consult: GARCÍA Source of Information: old records Exam Limitations: unable to give history History of Present Illness: The patient is an 86-year-old woman with a past medical history most significant for Stage III CKD with baseline SCr approx 1.3, diabetes, hypertension, CAD status post PCI, A. 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 She ultimately required intubation for respiratory failure thought to be secondary to volume overload as well as possible pneumonia as demonstrated on a CTA. BP dropped and she required IVF resuscitation and pressors for shock. She was started on empiric abx and is being followed by ID - cultures neg except for staph and yeast on respiratory culture. Echocardiogram with normal LV function elevated RV pressures. Renal function was at its baseline 1.3 on presentation but increase to 2.5 today. Insults including shock, contrast administration on 05/19. On Vanc - random level 14.3. She got 20mg IV lasix x2 on 05/19. Also of note, she is on digoxin. No renal imaging but does have a tellez catheter. UA with 30mg/dl protein and 25-50 RBC's with 1-3 WBC's. No RAAS inhibition at home. Last chest imaging noted to have mildly prominent central pulmonary vasculature. Allergies/Medications Allergies: Coded Allergies: codeine (SOB 07/09/15) Home Med List: Apixaban (Eliquis) 2.5 MG TABLET 2.5 MG PO BID Atrial Fibrilliation Atorvastatin Calcium (Lipitor) 80 MG TABLET 1 TAB PO DAILY CHOLESTEROL ( Reported) Calcium Carbonate/Vitamin D3 (Caltrate 600 + D Tablet) 600 MG-800 TABLET 1 TAB PO DAILY SUPPLEMENT (Reported) Carbidopa/Levodopa (Carbidopa-Levo ER 50-200 Tab) 50 MG-200 MG TABLET.ER 1 TAB PO DAILY RESTLESS LEGS Cyanocobalamin (Vitamin B-12) 1,000 MCG TABLET 1 TAB PO DAILY VITAMIN SUPPORT (Reported) diltiaZEM HCl (Diltiazem 24HR Cd) 360 MG CAP.ER.24H 1 TAB PO DAILY Heart rate Duloxetine HCl 60 MG CAPSULE.DR 1 CAP PO DAILY PAIN (Reported) Ferrous Sulfate 325 MG (65 MG IRON) TABLET.DR 325 MG PO BID supplement Folic Acid 1 MG TABLET 1 MG PO DAILY supplement Furosemide 20 MG TABLET 1 TAB PO DAILY WATER RETENTION (Reported) Lorazepam 1 MG TABLET 2 TAB PO QPM ANXIETY (Reported) Lorazepam 1 MG TABLET 1 TAB PO DAILY ANXIETY (Reported) Magnesium Oxide 400 MG TABLET 1 TAB PO DAILY SUPPLEMENT (Reported) Metformin HCl 1,000 MG TABLET 1 TAB PO DAILY DIABETES (Reported) Metoprolol Tartrate 100 MG TABLET 2 TAB PO BID HEART Mirtazapine 15 MG TABLET 1 TAB PO QPM SLEEP (Reported) Omeprazole 20 MG CAPSULE.DR 40 MG PO DAILY AC STOMACH HEALTH Prednisone 50 MG TABLET 1 TAB PO DAILY Thrombocytopenia Pregabalin (Lyrica) 75 MG CAPSULE 150 MG PO AT BEDTIME RESTLESS LEGS Current Medications: Current Medications Sig/Ric Start time Last Medication Dose Route Stop Time Status Admin Acetaminophen 650 MG Q6P PRN 05/19 0300 AC PO Acetaminophen 1,000 MG Q6P PRN 05/19 0300 AC IV Amiodarone HCl/ 360 MG Q6H 05/21 1100 AC Dextrose IV N/A 1 UNIT Amiodarone HCl/ 360 MG Q12H 05/20 1045 SD 05/21 Dextrose IV 0528 N/A 1 UNIT Ceftazidime 1,000 MG Q12 05/19 1000 DC 05/20 IV 2148 Doxycycline Hyclate 100 MG Q12 05/20 2200 DC 05/20 Sodium Chloride 100 ML IV 2148 Hydrocortisone 100 MG Q8 05/19 1639 05/21 Sodium Succinate IV 0528 Insulin Aspart 0 AT BEDTIME 05/21 2200 CAN SC Insulin Aspart 0 Q6 05/21 0600 CAN SC Insulin Aspart 8 UNITS ONCE ONE 05/21 0015 SD 05/21 PA 05/21 0016 0004 Insulin Human Regular 0 Q6 05/21 0600 05/21 SC 0530 Insulin Human Regular 10 UNITS .STK-MED ONE 05/20 2352 DC IV 05/20 2353 Norepinephrine 4 MG Q30H 05/20 0800 DC 05/20 Dextrose/Water 250 ML IV 0800 Pantoprazole Sodium 40 MG DAILY 05/20 0030 AC 05/21 IV 1011 Propofol 1,000 MG Q24H 05/20 0615 AC 05/21 N/A 1 UNIT IV 0045 Sodium Chloride 1,000 ML Q10H 05/19 1915 DC 05/21 IV 05/21 1113 0533 Vancomycin HCl 1,000 MG DAILY 05/19 1000 DC 05/20 Sodium Chloride 250 ML IV 0940 Review of Systems Review of Systems: Unable to obtain ROS as patient intubated/sedated Past History Travel History Traveled to [place] past 21 day No Medical History Neurological: restless leg syndrome, DIABETIC NEUROPATHY EENT: NONE Cardiovascular: hypertension, hyperlipidemia, myocardial infarction, CARDIAC STENTS Respiratory: NONE Gastrointestinal: constipation Hepatic: NONE Renal: NONE Musculoskeletal: falls, BILAT SHOULDER REPAIR LT KNEE REPAIR Psychiatric: anxiety Endocrine: diabetes Blood Disorders: thrombocytopenia Cancer(s): NONE 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 Extended Care Facility Services at Home: None Smoking Status: Former Smoker ETOH Use: occasional use Illicit Drug Use: denies illicit drug use Functional Ability ADLs Independent: dressing, eating, toileting, bathing. Ambulation: independent IADLs Independent: shopping, housework, finances, food prep, telephone, transportation , medication admin. Exam & Diagnostic Data Vital Signs and I&O Vital Signs Date Time Temp Pulse Resp B/P B/P Pulse O2 O2 Flow FiO2 Mean Ox Delivery Rate 05/21 0830 40 05/21 0613 50 05/21 0528 120 144/83 05/21 0400 93 Ventilator 50% 05/21 0337 50 05/21 0047 50 05/21 0000 96 Ventilator 50% 05/21 0000 98.4 104 14 114/60 96 Ventilator 50% 05/20 2222 50 05/20 2000 93 Ventilator 50% 05/20 1913 50 05/20 1628 50 05/20 1600 97 Ventilator 60% 05/20 1600 99.0 104 14 110/62 95 Ventilator 50% 05/20 1431 60 05/20 1200 98 Ventilator 60% 05/20 1145 60 Intake & Output 05/21 1600 05/21 0400 05/20 1600 05/20 0400 05/19 1600 05/19 0400 Intake Total 1006 1166 2131 1554 0 Output Total 95 60 310 290 Balance 911 1106 1821 1264 0 Intake, IV 1006 1166 2131 1554 Intake, Oral 0 0 0 0 Number 0 0 Bowel Movements Output, 0 0 Gastric Drainage Output, Urine 95 60 310 290 Patient 255 lb 255 lb 200 lb 200 lb Weight Weight Bed scale Bed scale Reported by Patient Estimated Measurement Method Physical Exam: Gen - ill appearing, unreponsive Head - NCAT Eyes - anicteric sclera, unresponsive to evaluate extraocular muscles Neck - supple, no LAD CV - RRR, no m/r/g Chest - clear mechanical breath sounds, no m/r/g Abd - soft, NTND, BS+ Upper ext - warm, no edema Lower ext - warm, no edema Skin - excoriations on legs, no jaundice Neuro - unresponsive Results Pertinent Lab Results: Laboratory Tests 05/21 05/21 0945 0445 Blood Gas pH (7.35 - 7.45 PH) 7.39 pCO2 (35 - 45 TORR) 27 L pO2 (80 - 100 TORR) 95 HCO3 (21 - 28 MEQ/L) 16 L ABG O2 Sat (Measured) (>96.0 %) 96.0 P-50 (Temp Corrected) Y Carboxyhemoglobin (1.5 - 5.0 %) 0.3 L O2 Concentration % 50% Temperature (97.0 - 100.0 FARH) 98.4 Respiration Rate (BPM) 14 O2 Delivery Method ESPRIT Vent Mode AC Expiratory Pressure (CMH2O/P) 5 Tidal Volume (CC) 550 Chemistry Troponin I (< 0.11 ng/ml) 0.37 *H Miscellaneous Phlebotomy Draw Site LEFT RADIAL 05/21 05/20 05/20 0306 2051 1500 Chemistry Sodium (137 - 145 mmol/L) 142 Potassium (3.5 - 5.1 mmol/L) 5.9 H Chloride (98 - 107 mmol/L) 104 Carbon Dioxide (22 - 30 mmol/L) 18 L Anion Gap (5 - 16) 20 H BUN (7 - 17 mg/dL) 73 H Creatinine (0.5 - 1.0 mg/dL) 2.5 H Estimated GFR (>60 ml/min) 18 L Glucose (65 - 99 mg/dL) 331 H 286 H Calcium (8.4 - 10.2 mg/dL) 7.6 L Phosphorus (2.5 - 4.5 mg/dL) 7.3 H Magnesium (1.6 - 2.3 mg/dL) 2.0 Total Bilirubin (0.2 - 1.3 mg/dL) 0.5 AST (14 - 36 U/L) 14 ALT (9 - 52 U/L) 41 Troponin I (< 0.11 ng/ml) 0.36 *H 0.34 *H 0.27 *H Albumin (3.5 - 5.0 g/dL) 2.0 L TSH (0.270 - 4.200 uIU/mL) 0.208 L Coagulation PT (9.4 - 12.5 SEC) 10.2 INR (0.90 - 1.19) 0.97 APTT (25 - 37 SEC) 29 Fibrinogen Activity (200 - 393 MG/DL) 388 Hematology CBC w Diff MAN DIFF ORDERED WBC (4.8 - 10.8 /CUMM) 10.4 RBC (4.20 - 5.40 /CUMM) 3.18 L Hgb (12.0 - 16.0 G/DL) 9.5 L Hct (37 - 47 %) 29.7 L MCV (81.0 - 99.0 FL) 93.4 MCH (27.0 - 31.0 PG) 29.8 RDW (11.5 - 14.5 %) 21.4 H Plt Count (130 - 400 /CUMM) 27 *L MPV (7.4 - 10.4 FL) 10.7 H Gran % (42.2 - 75.2 %) 95.5 H Lymphocytes % (20.5 - 51.1 %) 2.6 L Monocytes % (1.7 - 9.3 %) 1.9 Eosinophils % (0 - 5 %) 0 Basophils % (0.0 - 2.0 %) 0 Absolute Granulocytes (1.4 - 6.5 /CUMM) 10.0 H Segmented Neutrophils (42.2 - 75.2 %) 98 H Absolute Lymphocytes (1.2 - 3.4 /CUMM) 0.3 L Lymphocytes (20.5 - 51.1 %) 1 L Monocytes (1.7 - 9.3 %) 1 L Absolute Monocytes (0.10 - 0.60 /CUMM) 0.2 Absolute Eosinophils (0.0 - 0.7 /CUMM) 0 Absolute Basophils (0.0 - 0.2 /CUMM) 0 Platelet Estimate (ADEQUATE) DECREASED Polychromasia 1+ Hypochromic-Microcytic 1+ Poikilocytosis 1+ Ovalocytes 1+ Alberto Cells FEW PUBS MCHC (33.0 - 37.0 G/DL) 31.9 L Other Body Source Fld Total RBCs Counted (%) 100 Toxicology Random Vancomycin (ug/ml) 14.3 Digoxin (0.8 - 2.0 ng/mL) 2.6 *H 05/20 05/20 05/20 05/20 0950 0830 0800 0445 Blood Gas pH (7.35 - 7.45 PH) 7.38 7.42 pCO2 (35 - 45 TORR) 32 L 38 pO2 (80 - 100 TORR) 153 H 40 *L HCO3 (21 - 28 MEQ/L) 18 L 24 ABG O2 Sat (Measured) (>96.0 %) 98.0 66.0 L P-50 (Temp Corrected) Y Carboxyhemoglobin (1.5 - 5.0 %) 0.3 L 0.3 L O2 Concentration % 80 60% Temperature (97.0 - 100.0 FARH) 98.8 Respiration Rate (BPM) 14 14 O2 Delivery Method VENT ESPRIT Vent Mode AC AC Expiratory Pressure (CMH2O/P) 5 5 Tidal Volume (CC) 550 550 Chemistry Troponin I (< 0.11 ng/ml) 0.25 *H Cancelled Miscellaneous Phlebotomy Draw Site LEFT RADIAL RIGHT BRACHIAL 05/20 05/20 05/19 0300 0300 2232 Chemistry Sodium (137 - 145 mmol/L) 142 Potassium (3.5 - 5.1 mmol/L) 5.1 Chloride (98 - 107 mmol/L) 104 Carbon Dioxide (22 - 30 mmol/L) 24 Anion Gap (5 - 16) 14 BUN (7 - 17 mg/dL) 56 H Creatinine (0.5 - 1.0 mg/dL) 1.5 H Estimated GFR (>60 ml/min) 33 L Glucose (65 - 99 mg/dL) 122 H Lactic Acid Cancelled Calcium (8.4 - 10.2 mg/dL) 7.9 L Phosphorus (2.5 - 4.5 mg/dL) 5.1 H Magnesium (1.6 - 2.3 mg/dL) 2.0 Total Bilirubin (0.2 - 1.3 mg/dL) 0.7 AST (14 - 36 U/L) 20 ALT (9 - 52 U/L) 41 Troponin I (< 0.11 ng/ml) 0.23 *H Albumin (3.5 - 5.0 g/dL) 2.2 L Hematology CBC w Diff MAN DIFF ORDERED WBC (4.8 - 10.8 /CUMM) 15.4 H RBC (4.20 - 5.40 /CUMM) 3.65 L Hgb (12.0 - 16.0 G/DL) 10.9 L Hct (37 - 47 %) 33.5 L MCV (81.0 - 99.0 FL) 92.0 MCH (27.0 - 31.0 PG) 29.9 RDW (11.5 - 14.5 %) 22.0 H Plt Count (130 - 400 /CUMM) 25 *L MPV (7.4 - 10.4 FL) 9.8 Gran % (42.2 - 75.2 %) 95.0 H Lymphocytes % (20.5 - 51.1 %) 2.8 L Monocytes % (1.7 - 9.3 %) 2.1 Eosinophils % (0 - 5 %) 0 Basophils % (0.0 - 2.0 %) 0.1 Absolute Granulocytes (1.4 - 6.5 /CUMM) 14.6 H Segmented Neutrophils (42.2 - 75.2 %) 95 H Absolute Lymphocytes (1.2 - 3.4 /CUMM) 0.4 L Lymphocytes (20.5 - 51.1 %) 5 L Absolute Monocytes (0.10 - 0.60 /CUMM) 0.3 Absolute Eosinophils (0.0 - 0.7 /CUMM) 0 Absolute Basophils (0.0 - 0.2 /CUMM) 0 Platelet Estimate (ADEQUATE) VERIFIED BY SMEAR Polychromasia 1+ Poikilocytosis 1+ Anisocytosis 1+ Alberto Cells 1+ Elliptocytes 1+ PUBS MCHC (33.0 - 37.0 G/DL) 32.5 L 05/19 Blood Gas pH (7.35 - 7.45 PH) 7.59 H pCO2 (35 - 45 TORR) 25 L pO2 (80 - 100 TORR) 93 HCO3 (21 - 28 MEQ/L) 23 ABG O2 Sat (Measured) (>96.0 %) 97.0 P-50 (Temp Corrected) N Carboxyhemoglobin (1.5 - 5.0 %) 0.5 L O2 Concentration % 60% Temperature (97.0 - 100.0 FARH) 98.9 Respiration Rate (BPM) 20 O2 Delivery Method ESPRIT VENT Vent Mode AC Expiratory Pressure (CMH2O/P) 5 Tidal Volume (CC) 550 Chemistry Lactic Acid (0.7 - 2.1 mmol/L) 1.4 Troponin I (< 0.11 ng/ml) 0.19 *H Miscellaneous Phlebotomy Draw Site RIGHT BRACHIAL 05/19 05/19 1750 1620 Blood Gas pH (7.35 - 7.45 PH) 7.37 pCO2 (35 - 45 TORR) 49 H pO2 (80 - 100 TORR) 83 HCO3 (21 - 28 MEQ/L) 28 ABG O2 Sat (Measured) (>96.0 %) 94.0 L P-50 (Temp Corrected) N Carboxyhemoglobin (1.5 - 5.0 %) 0.7 L O2 Concentration % 6L Temperature (97.0 - 100.0 FARH) 99.0 O2 Delivery Method NC Chemistry Sodium (137 - 145 mmol/L) 143 Potassium (3.5 - 5.1 mmol/L) 4.8 Chloride (98 - 107 mmol/L) 102 Carbon Dioxide (22 - 30 mmol/L) 31 H Anion Gap (5 - 16) 11 BUN (7 - 17 mg/dL) 55 H Creatinine (0.5 - 1.0 mg/dL) 1.5 H Estimated GFR (>60 ml/min) 33 L Glucose (65 - 99 mg/dL) 93 Calcium (8.4 - 10.2 mg/dL) 7.8 L Phosphorus (2.5 - 4.5 mg/dL) 4.6 H Magnesium (1.6 - 2.3 mg/dL) 2.0 Total Bilirubin (0.2 - 1.3 mg/dL) 0.5 AST (14 - 36 U/L) 21 ALT (9 - 52 U/L) 37 Albumin (3.5 - 5.0 g/dL) 2.2 L Hematology CBC w Diff NO MAN DIFF REQ WBC (4.8 - 10.8 /CUMM) 18.5 H RBC (4.20 - 5.40 /CUMM) 3.64 L Hgb (12.0 - 16.0 G/DL) 10.9 L Hct (37 - 47 %) 34.0 L MCV (81.0 - 99.0 FL) 93.3 MCH (27.0 - 31.0 PG) 29.8 RDW (11.5 - 14.5 %) 21.5 H Plt Count (130 - 400 /CUMM) 31 L MPV (7.4 - 10.4 FL) 10.0 Gran % (42.2 - 75.2 %) 96.2 H Lymphocytes % (20.5 - 51.1 %) 2.2 L Monocytes % (1.7 - 9.3 %) 1.6 L Eosinophils % (0 - 5 %) 0 Basophils % (0.0 - 2.0 %) 0 Absolute Granulocytes (1.4 - 6.5 /CUMM) 17.8 H Absolute Lymphocytes (1.2 - 3.4 /CUMM) 0.4 L Absolute Monocytes (0.10 - 0.60 /CUMM) 0.3 Absolute Eosinophils (0.0 - 0.7 /CUMM) 0 Absolute Basophils (0.0 - 0.2 /CUMM) 0 PUBS MCHC (33.0 - 37.0 G/DL) 32.0 L Miscellaneous Phlebotomy Draw Site RIGHT BRACHIAL 05/19 05/19 1430 1430 Chemistry Sodium (137 - 145 mmol/L) 143 Potassium (3.5 - 5.1 mmol/L) 4.7 Chloride (98 - 107 mmol/L) 101 Carbon Dioxide (22 - 30 mmol/L) 32 H Anion Gap (5 - 16) 10 BUN (7 - 17 mg/dL) 52 H Creatinine (0.5 - 1.0 mg/dL) 1.6 H Estimated GFR (>60 ml/min) 31 L BUN/Creatinine Ratio (7 - 25 %) 32.5 H Lactic Acid (0.7 - 2.1 mmol/L) 1.2 Troponin I (< 0.11 ng/ml) Cancelled 0.17 *H Cortisol PM Sample (1.7 - 14.1) 16.6 H Hematology CBC w Diff NO MAN DIFF REQ WBC (4.8 - 10.8 /CUMM) 15.0 H RBC (4.20 - 5.40 /CUMM) 3.66 L Hgb (12.0 - 16.0 G/DL) 10.9 L Hct (37 - 47 %) 33.6 L MCV (81.0 - 99.0 FL) 91.8 MCH (27.0 - 31.0 PG) 29.7 RDW (11.5 - 14.5 %) 21.8 H Plt Count (130 - 400 /CUMM) 21 *L MPV (7.4 - 10.4 FL) 9.3 Gran % (42.2 - 75.2 %) 95.1 H Lymphocytes % (20.5 - 51.1 %) 2.1 L Monocytes % (1.7 - 9.3 %) 2.7 Eosinophils % (0 - 5 %) 0 Basophils % (0.0 - 2.0 %) 0.1 Absolute Granulocytes (1.4 - 6.5 /CUMM) 14.2 H Absolute Lymphocytes (1.2 - 3.4 /CUMM) 0.3 L Absolute Monocytes (0.10 - 0.60 /CUMM) 0.4 Absolute Eosinophils (0.0 - 0.7 /CUMM) 0 Absolute Basophils (0.0 - 0.2 /CUMM) 0 PUBS MCHC (33.0 - 37.0 G/DL) 32.3 L 05/19 05/19 05/19 05/19 1425 1047 0600 0554 Blood Gas pH (7.35 - 7.45 PH) 7.38 pCO2 (35 - 45 TORR) 48 H pO2 (80 - 100 TORR) 53 L HCO3 (21 - 28 MEQ/L) 28 ABG O2 Sat (Measured) (>96.0 %) 84.0 L P-50 (Temp Corrected) N Carboxyhemoglobin (1.5 - 5.0 %) 1.5 O2 Concentration % 6L Temperature (97.0 - 100.0 FARH) 99.8 O2 Delivery Method N/C Chemistry Lactic Acid Cancelled Troponin I (< 0.11 ng/ml) 0.14 *H Cancelled Miscellaneous Phlebotomy Draw Site LEFT BRACH 05/19 05/19 0554 0573 Chemistry Estimated GFR Cancelled Cancelled 05/19 05/19 0503 0507 Chemistry Sodium (137 - 145 mmol/L) 142 Potassium (3.5 - 5.1 mmol/L) 5.1 Chloride (98 - 107 mmol/L) 102 Carbon Dioxide (22 - 30 mmol/L) 30 Anion Gap (5 - 16) 10 BUN (7 - 17 mg/dL) 56 H Creatinine (0.5 - 1.0 mg/dL) 1.3 H Estimated GFR (>60 ml/min) 39 L BUN/Creatinine Ratio (7 - 25 %) 43.1 H Troponin I (< 0.11 ng/ml) 0.12 *H [id number] Pept (<125 pg/mL) 9630 H Hematology CBC w Diff MAN DIFF ORDERED WBC (4.8 - 10.8 /CUMM) 13.6 H RBC (4.20 - 5.40 /CUMM) 3.94 L Hgb (12.0 - 16.0 G/DL) 11.7 L Hct (37 - 47 %) 36.6 L MCV (81.0 - 99.0 FL) 93.1 MCH (27.0 - 31.0 PG) 29.7 RDW (11.5 - 14.5 %) 21.6 H Plt Count (130 - 400 /CUMM) 23 *L MPV (7.4 - 10.4 FL) 10.1 Gran % (42.2 - 75.2 %) 91.0 H Lymphocytes % (20.5 - 51.1 %) 3.5 L Monocytes % (1.7 - 9.3 %) 5.3 Eosinophils % (0 - 5 %) 0 Basophils % (0.0 - 2.0 %) 0.2 Absolute Granulocytes (1.4 - 6.5 /CUMM) 12.4 H Segmented Neutrophils (42.2 - 75.2 %) 86 H Absolute Lymphocytes (1.2 - 3.4 /CUMM) 0.5 L Lymphocytes (20.5 - 51.1 %) 3 L Monocytes (1.7 - 9.3 %) 11 H Absolute Monocytes (0.10 - 0.60 /CUMM) 0.7 H Absolute Eosinophils (0.0 - 0.7 /CUMM) 0 Absolute Basophils (0.0 - 0.2 /CUMM) 0 Platelet Estimate (ADEQUATE) DECREASED Polychromasia 1+ Hypochromic-Microcytic 1+ Poikilocytosis 1+ Ovalocytes 1+ PUBS MCHC (33.0 - 37.0 G/DL) 32.0 L Other Body Source Fld Total RBCs Counted (%) 100 Urines Urinalysis LIGHT H Urine Color (YEL,AMB,STR) YEL Urine Clarity (CLEAR) CLEAR Urine pH (5.0 - 8.0) 6.0 Ur Specific [place] (1.001 - 1.035) 1.020 Urine Protein (NEG,<30 MG/DL) 30 H Urine Ketones (NEG) NEG Urine Nitrite (NEG) NEG Urine Bilirubin (NEG) NEG Urine Urobilinogen (0.1 - 1.0 EU/dl) 0.2 Ur Leukocyte Esterase (NEG) NEG Ur Microscopic SEDIMENT EXAMINED Urine RBC (0 - 5 /HPF) 25-50 H Urine WBC (0 - 2 /HPF) 1-3 H Ur Epithelial Cells (NONE,FEW) FEW Hyaline Casts (0/LPF) 3-5 H Urine Mucus (FEW,NONE) FEW Urine Hemoglobin (NEG) MOD H Urine Glucose (N MG/DL) NEG 05/19 05/19 05/18 0254 0103 2250 Chemistry Sodium (137 - 145 mmol/L) 139 Potassium (3.5 - 5.1 mmol/L) 5.4 H Chloride (98 - 107 mmol/L) 101 Carbon Dioxide (22 - 30 mmol/L) 29 Anion Gap (5 - 16) 9 BUN (7 - 17 mg/dL) 55 H Creatinine (0.5 - 1.0 mg/dL) 1.3 H Estimated GFR (>60 ml/min) 39 L BUN/Creatinine Ratio (7 - 25 %) 42.3 H Glucose (65 - 99 mg/dL) 143 H Lactic Acid Cancelled Cancelled Calcium (8.4 - 10.2 mg/dL) 8.3 L Magnesium (1.6 - 2.3 mg/dL) 2.2 Total Bilirubin (0.2 - 1.3 mg/dL) 0.8 Direct Bilirubin (< 0.4 mg/dL) 0.3 AST (14 - 36 U/L) 13 L ALT (9 - 52 U/L) 47 Alkaline Phosphatase (<127 U/L) 48 Troponin I (< 0.11 ng/ml) 0.10 [id number] Pept (<125 pg/mL) 9830 H Total Protein (6.3 - 8.2 g/dL) 4.8 L Albumin (3.5 - 5.0 g/dL) 2.6 L Amylase (30 - 110 U/L) < 30 L Lipase (23 - 300 U/L) 40 Coagulation PT (9.4 - 12.5 SEC) 12.1 INR (0.90 - 1.19) 1.15 APTT (25 - 37 SEC) 25 D-Dimer High Sensitivty (0 - 243 ng/ml) 303 H 05/18 05/18 2219 2210 Blood Gas pH (7.35 - 7.45 PH) 7.45 pCO2 (35 - 45 TORR) 37 pO2 (80 - 100 TORR) 54 L HCO3 (21 - 28 MEQ/L) 25 ABG O2 Sat (Measured) (>96.0 %) 86.0 L P-50 (Temp Corrected) N Carboxyhemoglobin (1.5 - 5.0 %) 1.4 L O2 Concentration % R/A Temperature (97.0 - 100.0 FARH) 99.4 Chemistry Lactic Acid (0.7 - 2.1 mmol/L) 1.2 Hematology CBC w Diff NO MAN DIFF REQ WBC (4.8 - 10.8 /CUMM) 11.0 H RBC (4.20 - 5.40 /CUMM) 4.46 Hgb (12.0 - 16.0 G/DL) 13.4 Hct (37 - 47 %) 41.8 MCV (81.0 - 99.0 FL) 93.6 MCH (27.0 - 31.0 PG) 30.0 RDW (11.5 - 14.5 %) 21.3 H Plt Count (130 - 400 /CUMM) 44 L MPV (7.4 - 10.4 FL) 8.8 Gran % (42.2 - 75.2 %) 94.6 H Lymphocytes % (20.5 - 51.1 %) 2.2 L Monocytes % (1.7 - 9.3 %) 3.0 Eosinophils % (0 - 5 %) 0.1 Basophils % (0.0 - 2.0 %) 0.1 Absolute Granulocytes (1.4 - 6.5 /CUMM) 10.4 H Absolute Lymphocytes (1.2 - 3.4 /CUMM) 0.2 L Absolute Monocytes (0.10 - 0.60 /CUMM) 0.3 Absolute Eosinophils (0.0 - 0.7 /CUMM) 0 Absolute Basophils (0.0 - 0.2 /CUMM) 0 PUBS MCHC (33.0 - 37.0 G/DL) 32.0 L Miscellaneous Phlebotomy Draw Site LEFT RADIAL Imaging/Other Studies: CTA and TTE reviewed Assessment/Plan Assessment/Recommendations Assessment: GARCÍA - 2/2 ATN in the setting of septic shock and contrast induced nephropathy. Currently oligoanuric without an HD indication. Despite pulmonary-renal findings with hematuria, would hold off on sending serologies in the current clinical setting given other obvious causes of her renal failure. 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 Doubt concurrent TMA as the cause of her GARCÍA. Stage III CKD - Known risk factors of DM, HTN as well as CAD. CHF - Elevated RV pressures on TTE - no longer in shock - may be able to hold off on further supplemental IVF administration. Anion gap metabolic acidosis - Normal lactate and no ketones on UA ( hyperglycemic). Likely 2/2 renal failure. Recommendations: -Cont supportive care as you are -Vanc by level -Monitor digoxin levels - hold for now -No clear need for further IVF administration -Nonurgent renal US -Sodium bicarb 1300mg TID Please call [phone] with ?'s
--- NOTE | 2017-05-21 15:21 | PN- Cardiology ---
Subjective Subjective: Awake and alert. No complaints today. Spirits good Objective Vital Signs and I&Os Vital Signs Date Time Temp Pulse Resp B/P B/P Pulse O2 O2 Flow FiO2 Mean Ox Delivery Rate 05/21 1428 40 05/21 1423 118 97/63 05/21 1130 40 05/21 0830 40 05/21 0800 99.4 122 20 130/60 97 Ventilator 50% 05/21 0613 50 05/21 0528 120 144/83 05/21 0400 93 Ventilator 50% 05/21 0337 50 05/21 0047 50 05/21 0000 96 Ventilator 50% 05/21 0000 98.4 104 14 114/60 96 Ventilator 50% 05/20 2222 50 05/20 2000 93 Ventilator 50% 05/20 1913 50 05/20 1628 50 05/20 1600 97 Ventilator 60% 05/20 1600 99.0 104 14 110/62 95 Ventilator 50% Intake & Output 05/21 1600 05/21 0800 05/21 0000 05/20 1600 05/20 0800 05/20 0000 Intake Total 1006 1166 4208 519 7887 Output Total 95 60 30 280 290 Balance 911 1106 4886 165 7587 Intake, IV 1006 1166 0879 753 2161 Intake, Oral 0 0 0 Number 0 0 Bowel Movements Output, 0 0 Gastric Drainage Output, Urine 95 60 30 280 290 Patient 255 lb 255 lb Weight Weight Bed scale Bed scale Measurement Method Current Medications: Current Medications Sig/Ric Start time Last Medication Dose Route Stop Time Status Admin Acetaminophen 650 MG Q6P PRN 05/19 0300 AC PO Acetaminophen 1,000 MG Q6P PRN 05/19 0300 AC IV Amiodarone HCl/ 360 MG Q6H 05/21 1100 AC 05/21 Dextrose IV 1423 N/A 1 UNIT Amiodarone HCl/ 360 MG Q12H 05/20 1045 DC 05/21 Dextrose IV 0528 N/A 1 UNIT Ceftazidime 1,000 MG Q12 05/19 1000 DC 05/20 IV 2148 Doxycycline Hyclate 100 MG Q12 05/20 2200 DC 05/20 Sodium Chloride 100 ML IV 2148 Hydrocortisone 100 MG Q8 05/19 1639 AC 05/21 Sodium Succinate IV 1416 Insulin Aspart 0 AT BEDTIME 05/21 2200 CAN SC Insulin Aspart 5 UNITS ONCE ONE 05/21 1330 DC 05/21 SC 05/21 1331 1416 Insulin Aspart 0 Q6 05/21 0600 CAN SC Insulin Aspart 8 UNITS ONCE ONE 05/21 0015 DC 05/21 MT 05/21 0016 0004 Insulin Detemir 10 UNITS BID 05/21 1530 UNVr SC Insulin Human Regular 15 UNITS ONCE ONE 05/21 1230 DC 05/21 SC 05/21 1231 1228 Insulin Human Regular 0 Q6 05/21 0600 AC 05/21 SC 0530 Insulin Human Regular 10 UNITS .STK-MED ONE 05/20 2352 DC IV 05/20 2353 Norepinephrine 4 MG Q30H 05/20 0800 DC 05/20 Dextrose/Water 250 ML IV 0800 Pantoprazole Sodium 40 MG DAILY 05/20 0030 AC 05/21 IV 1011 Propofol 1,000 MG .STK-MED ONE 05/21 0546 DC IV 05/21 0547 Propofol 1,000 MG Q24H 05/20 0615 AC 05/21 N/A 1 UNIT IV 1229 Sodium Bicarbonate 1,300 MG TID 05/21 1600 AC PO Sodium Chloride 1,000 ML Q10H 05/19 1915 DC 05/21 IV 05/21 1113 0533 Vancomycin HCl 1,000 MG ONCE ONE 05/21 1215 DC 05/21 Sodium Chloride 250 ML IV 05/21 1314 1423 Vancomycin HCl 1,000 MG DAILY 05/19 1000 DC 05/20 Sodium Chloride 250 ML IV 0940 Results Last 48 Hrs of Labs/Mics: Laboratory Tests 05/21/17 1200: Potassium Cancelled 05/21/17 1131: Urine Osmolality Cancelled 05/21/17 1100: Urine Color YEL, Urine Clarity HAZY H, Urine pH 5.5, Ur Specific [place] >= 1.030, Urine Protein TRACE H, Urine Ketones TRACE H, Urine Nitrite NEG, Urine Bilirubin NEG@ICTO, Urine Urobilinogen 0.2, Ur Leukocyte Esterase NEG, Ur Microscopic SEDIMENT EXAMINED, Urine RBC 25-50 H, Urine WBC 1-3 H, Ur Epithelial Cells RARE, Urine Bacteria RARE H, Micro UA Comment [place]UDDING YEAST H , Urine Hemoglobin LARGE H, Urine Glucose NEG 05/21/17 1100: Urine Osmolality 472, Ur Random Creatinine 125.6, Ur Random Sodium 6 L, Ur Random Potassium 92.4, Fraction Sodium Excret 0.1 05/21/17 0945: Troponin I 0.37 *H 05/21/17 0445: pH 7.39, pCO2 27 L, pO2 95, HCO3 16 L, ABG O2 Sat (Measured) 96.0, P-50 (Temp Corrected) Y, Carboxyhemoglobin 0.3 L, O2 Concentration % 50%, Temperature 98.4 , Respiration Rate 14, O2 Delivery Method ESPRIT, Vent Mode AC, Expiratory Pressure 5, Tidal Volume 550, Phlebotomy Draw Site LEFT RADIAL 05/21/17 0306: Anion Gap 20 H, Estimated GFR 18 L, Glucose 331 H, Calcium 7.6 L, Phosphorus 7.3 H, Magnesium 2.0, Total Bilirubin 0.5, AST 14, ALT 41, Troponin I 0.36 *H, Albumin 2.0 L, TSH 0.208 L, PT 10.2, INR 0.97, APTT 29, Fibrinogen Activity 388, CBC w Diff MAN DIFF ORDERED, RBC 3.18 L, MCV 93.4, MCH 29.8, RDW 21.4 H, MPV 10.7 H, Gran % 95.5 H, Lymphocytes % 2.6 L, Monocytes % 1.9, Eosinophils % 0, Basophils % 0, Absolute Granulocytes 10.0 H, Segmented Neutrophils 98 H, Absolute Lymphocytes 0.3 L, Lymphocytes 1 L, Monocytes 1 L, Absolute Monocytes 0.2, Absolute Eosinophils 0, Absolute Basophils 0, Platelet Estimate DECREASED, Polychromasia 1+, Hypochromic-Microcytic 1+, Poikilocytosis 1+, Ovalocytes 1+, [place] Cells FEW, PUBS MCHC 31.9 L, Fld Total RBCs Counted 100, Random Vancomycin 14.3, Digoxin 2.6 *H 05/20/17 2051: Glucose 286 H, Troponin I 0.34 *H 05/20/17 1500: Troponin I 0.27 *H 05/20/17 0950: pH 7.38, pCO2 32 L, pO2 153 H, HCO3 18 L, ABG O2 Sat (Measured) 98.0, Carboxyhemoglobin 0.3 L, O2 Concentration % 80, Respiration Rate 14, O2 Delivery Method VENT, Vent Mode AC, Expiratory Pressure 5, Tidal Volume 550, Phlebotomy Draw Site LEFT RADIAL 05/20/17 0830: Troponin I 0.25 *H 05/20/17 0800: Troponin I Cancelled 05/20/17 0445: pH 7.42, pCO2 38, pO2 40 *L, HCO3 24, ABG O2 Sat (Measured) 66.0 L, P-50 (Temp Corrected) Y, Carboxyhemoglobin 0.3 L, O2 Concentration % 60%, Temperature 98.8 , Respiration Rate 14, O2 Delivery Method ESPRIT, Vent Mode AC, Expiratory Pressure 5, Tidal Volume 550, Phlebotomy Draw Site RIGHT BRACHIAL 05/20/17 0300: Troponin I 0.23 *H 05/20/17 0300: Anion Gap 14, Estimated GFR 33 L, Glucose 122 H, Calcium 7.9 L, Phosphorus 5.1 H, Magnesium 2.0, Total Bilirubin 0.7, AST 20, ALT 41, Albumin 2.2 L, CBC w Diff MAN DIFF ORDERED, RBC 3.65 L, MCV 92.0, MCH 29.9, RDW 22.0 H, MPV 9.8, Gran % 95.0 H, Lymphocytes % 2.8 L, Monocytes % 2.1, Eosinophils % 0, Basophils % 0.1, Absolute Granulocytes 14.6 H, Segmented Neutrophils 95 H, Absolute Lymphocytes 0.4 L, Lymphocytes 5 L, Absolute Monocytes 0.3, Absolute Eosinophils 0, Absolute Basophils 0, Platelet Estimate VERIFIED BY SMEAR, Polychromasia 1+, Poikilocytosis 1+, Anisocytosis 1+, Alberto Cells 1+, Elliptocytes 1+, PUBS MCHC 32.5 L 05/19/172231: Lactic Acid Cancelled 05/19/172034: Troponin I 0.19 *H 05/19/171999: Lactic Acid 1.4 05/19/17 1930: pH 7.59 H, pCO2 25 L, pO2 93, HCO3 23, ABG O2 Sat (Measured) 97.0, P-50 (Temp Corrected) N, Carboxyhemoglobin 0.5 L, O2 Concentration % 60%, Temperature 98.9 , Respiration Rate 20, O2 Delivery Method ESPRIT VENT, Vent Mode AC, Expiratory Pressure 5, Tidal Volume 550, Phlebotomy Draw Site RIGHT BRACHIAL 05/19/17 1750: Anion Gap 11, Estimated GFR 33 L, Glucose 93, Calcium 7.8 L, Phosphorus 4.6 H , Magnesium 2.0, Total Bilirubin 0.5, AST 21, ALT 37, Albumin 2.2 L, CBC w Diff NO MAN DIFF REQ, RBC 3.64 L, MCV 93.3, MCH 29.8, RDW 21.5 H, MPV 10.0, Gran % 96.2 H, Lymphocytes % 2.2 L, Monocytes % 1.6 L, Eosinophils % 0, Basophils % 0, Absolute Granulocytes 17.8 H, Absolute Lymphocytes 0.4 L, Absolute Monocytes 0.3, Absolute Eosinophils 0, Absolute Basophils 0, PUBS MCHC 32.0 L 05/19/17 1620: pH 7.37, pCO2 49 H, pO2 83, HCO3 28, ABG O2 Sat (Measured) 94.0 L, P-50 (Temp Corrected) N, Carboxyhemoglobin 0.7 L, O2 Concentration % 6L, Temperature 99.0, O2 Delivery Method NC, Phlebotomy Draw Site RIGHT BRACHIAL Microbiology 05/19 1729 URINE ROUT: Legionella Antigen - COMP 05/19 1729 URINE ROUT: Streptococcus pneumoniae Antigen (M - COMP 05/19 1630 UPPER RESP: Surveillance Culture - COMP 05/19 163 GI: Surveillance Culture - COMP
[2017-05-21 16:00] VITALS: BP 110/50
--- NOTE | 2017-05-21 17:08 | Cons- Endocrinology ---
General Information and HPI Consulting Request Date of Consult: 05/21/17 Requested By: medical team Reason for Consult: Uncontrolled diabetes Source of Information: old records Exam Limitations: unable to give history History of Present Illness: This 86-year-old woman has a known history of type 2 diabetes. She was on prednisone as an outpatient for thrombocytopenia. She came to the hospital from a senior living because of difficulty breathing. She had respiratory failure and is presently on a respirator. She has presumed sepsis and is on antibiotics with possible pulmonary source or skin as a source. She has been on Solu-Cortef 100 mg IV every 8 hours. Her blood sugars became very high after admission. Blood sugar today at 1215 was 414 and the patient received 15 units of regular insulin. We did give her 5 units of NovoLog at 1:30 PM. Her sugar now is down to 303. The patient has chronic renal insufficiency with a creatinine of 2.5. Allergies/Medications Allergies: Coded Allergies: codeine (SOB 07/09/15) Home Med List: Apixaban (Eliquis) 2.5 MG TABLET 2.5 MG PO BID Atrial Fibrilliation Atorvastatin Calcium (Lipitor) 80 MG TABLET 1 TAB PO DAILY CHOLESTEROL ( Reported) Calcium Carbonate/Vitamin D3 (Caltrate 600 + D Tablet) 600 MG-800 TABLET 1 TAB PO DAILY SUPPLEMENT (Reported) Carbidopa/Levodopa (Carbidopa-Levo ER 50-200 Tab) 50 MG-200 MG TABLET.ER 1 TAB PO DAILY RESTLESS LEGS Cyanocobalamin (Vitamin B-12) 1,000 MCG TABLET 1 TAB PO DAILY VITAMIN SUPPORT (Reported) diltiaZEM HCl (Diltiazem 24HR Cd) 360 MG CAP.ER.24H 1 TAB PO DAILY Heart rate Duloxetine HCl 60 MG CAPSULE.DR 1 CAP PO DAILY PAIN (Reported) Ferrous Sulfate 325 MG (65 MG IRON) TABLET.DR 325 MG PO BID supplement Folic Acid 1 MG TABLET 1 MG PO DAILY supplement Furosemide 20 MG TABLET 1 TAB PO DAILY WATER RETENTION (Reported) Lorazepam 1 MG TABLET 2 TAB PO QPM ANXIETY (Reported) Lorazepam 1 MG TABLET 1 TAB PO DAILY ANXIETY (Reported) Magnesium Oxide 400 MG TABLET 1 TAB PO DAILY SUPPLEMENT (Reported) Metformin HCl 1,000 MG TABLET 1 TAB PO DAILY DIABETES (Reported) Metoprolol Tartrate 100 MG TABLET 2 TAB PO BID HEART Mirtazapine 15 MG TABLET 1 TAB PO QPM SLEEP (Reported) Omeprazole 20 MG CAPSULE.DR 40 MG PO DAILY AC STOMACH HEALTH Prednisone 50 MG TABLET 1 TAB PO DAILY Thrombocytopenia Pregabalin (Lyrica) 75 MG CAPSULE 150 MG PO AT BEDTIME RESTLESS LEGS Review of Systems Comments Cannot give review of systems because intubated on a respirator Past History Travel History Traveled to [place] past 21 day No Medical History Neurological: restless leg syndrome, DIABETIC NEUROPATHY EENT: NONE Cardiovascular: hypertension, hyperlipidemia, myocardial infarction, CARDIAC STENTS Respiratory: NONE Gastrointestinal: constipation Hepatic: NONE Renal: NONE Musculoskeletal: falls, BILAT SHOULDER REPAIR LT KNEE REPAIR Psychiatric: anxiety Endocrine: diabetes Blood Disorders: thrombocytopenia Cancer(s): NONE 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 Extended Care Facility Services at Home: None Smoking Status: Former Smoker ETOH Use: occasional use Illicit Drug Use: denies illicit drug use Functional Ability ADLs Independent: dressing, eating, toileting, bathing. Ambulation: independent IADLs Independent: shopping, housework, finances, food prep, telephone, transportation , medication admin. Exam & Diagnostic Data Last 24 Hrs of Vital Signs/I&O Vital Signs Date Time Temp Pulse Resp B/P B/P Pulse O2 O2 Flow FiO2 Mean Ox Delivery Rate 05/21 1600 98.5 110 16 110/50 96 Ventilator 40% 05/21 1600 96 Ventilator 40% 05/21 1428 40 05/21 1423 118 97/63 05/21 1200 96 Ventilator 40% 05/21 1130 40 05/21 0830 40 05/21 0800 99.4 122 20 130/60 97 Ventilator 50% 05/21 0800 96 Ventilator 50% 05/21 0613 50 05/21 0528 120 144/83 05/21 0400 93 Ventilator 50% 05/21 0337 50 05/21 0047 50 05/21 0000 96 Ventilator 50% 05/21 0000 98.4 104 14 114/60 96 Ventilator 50% 05/20 2222 50 05/20 2000 93 Ventilator 50% 05/20 1913 50 Intake & Output 05/21 1600 05/21 0800 05/21 0000 Intake Total 355 1006 1166 Output Total 210 95 60 Balance 103 203 8584 Intake, IV 355 1006 1166 Intake, Oral 0 0 Number 0 Bowel Movements Output, 0 0 Gastric Drainage Output, Urine 210 95 60 Patient 255 lb Weight Vital Signs Date Time Temp Pulse Resp B/P B/P Pulse O2 O2 Flow FiO2 Mean Ox Delivery Rate 05/21 1600 98.5 110 16 110/50 96 Ventilator 40% 05/21 1600 96 Ventilator 40% 05/21 1428 40 05/21 1423 118 97/63 05/21 1200 96 Ventilator 40% 05/21 1130 40 05/21 0830 40 05/21 0800 99.4 122 20 130/60 97 Ventilator 50% 05/21 0800 96 Ventilator 50% 05/21 0613 50 05/21 0528 120 144/83 05/21 0400 93 Ventilator 50% 05/21 0337 50 05/21 0047 50 05/21 0000 96 Ventilator 50% 05/21 0000 98.4 104 14 114/60 96 Ventilator 50% 05/20 2222 50 05/20 2000 93 Ventilator 50% 05/20 1913 50 Intake & Output 05/21 1600 05/21 0800 05/21 0000 Intake Total 355 1006 1166 Output Total 210 95 60 Balance 841 579 7038 Intake, IV 355 1006 1166 Intake, Oral 0 0 Number 0 Bowel Movements Output, 0 0 Gastric Drainage Output, Urine 210 95 60 Patient 255 lb Weight Physical Exam General Appearance: sedated, intubated Head: normal appearance Neck: normal inspection Respiratory: normal breath sounds Cardiovascular: regular rate/rhythm Gastrointestinal: normal bowel sounds, soft Extremities: swelling (edema of all extremities) Labs/Silvano Results: Laboratory Tests 05/21 05/21 1200 1131 Chemistry Potassium Cancelled Urines Urine Osmolality Cancelled 05/21 05/21 05/21 1100 1100 0945 Chemistry Potassium (3.5 - 5.1 mmol/L) 5.3 H Troponin I (< 0.11 ng/ml) 0.37 *H Urines Urine Color (YEL,AMB,STR) YEL Urine Clarity (CLEAR) HAZY H Urine pH (5.0 - 8.0) 5.5 Ur Specific [place] (1.001 - 1.035) >= 1.030 Urine Protein (NEG,<30 MG/DL) TRACE H Urine Ketones (NEG) TRACE H Urine Nitrite (NEG) NEG Urine Bilirubin (NEG) NEG@ICTO Urine Urobilinogen (0.1 - 1.0 EU/dl) 0.2 Ur Leukocyte Esterase (NEG) NEG Ur Microscopic SEDIMENT EXAMINED Urine RBC (0 - 5 /HPF) 25-50 H Urine WBC (0 - 2 /HPF) 1-3 H Ur Epithelial Cells (NONE,FEW) RARE Urine Bacteria (NEG/NONE) RARE H Micro UA Comment BUDDING YEAST H Urine Hemoglobin (NEG) LARGE H Urine Osmolality (300 - 1000 MOSM/KG) 472 Ur Random Creatinine (mg/dL) 125.6 Ur Random Sodium (30 - 90 mmol/L) 6 L Ur Random Potassium (mmol/L) 92.4 Fraction Sodium Excret (<1% %) 0.1 Urine Glucose (N MG/DL) NEG 05/21 05/21 0445 0306 Blood Gas pH (7.35 - 7.45 PH) 7.39 pCO2 (35 - 45 TORR) 27 L pO2 (80 - 100 TORR) 95 HCO3 (21 - 28 MEQ/L) 16 L ABG O2 Sat (Measured) (>96.0 %) 96.0 P-50 (Temp Corrected) Y Carboxyhemoglobin (1.5 - 5.0 %) 0.3 L O2 Concentration % 50% Temperature (97.0 - 100.0 FARH) 98.4 Respiration Rate (BPM) 14 O2 Delivery Method ESPRIT Vent Mode AC Expiratory Pressure (CMH2O/P) 5 Tidal Volume (CC) 550 Chemistry Sodium (137 - 145 mmol/L) 142 Potassium (3.5 - 5.1 mmol/L) 5.9 H Chloride (98 - 107 mmol/L) 104 Carbon Dioxide (22 - 30 mmol/L) 18 L Anion Gap (5 - 16) 20 H BUN (7 - 17 mg/dL) 73 H Creatinine (0.5 - 1.0 mg/dL) 2.5 H Estimated GFR (>60 ml/min) 18 L Glucose (65 - 99 mg/dL) 331 H Calcium (8.4 - 10.2 mg/dL) 7.6 L Phosphorus (2.5 - 4.5 mg/dL) 7.3 H Magnesium (1.6 - 2.3 mg/dL) 2.0 Total Bilirubin (0.2 - 1.3 mg/dL) 0.5 AST (14 - 36 U/L) 14 ALT (9 - 52 U/L) 41 Troponin I (< 0.11 ng/ml) 0.36 *H Albumin (3.5 - 5.0 g/dL) 2.0 L TSH (0.270 - 4.200 uIU/mL) 0.208 L Coagulation PT (9.4 - 12.5 SEC) 10.2 INR (0.90 - 1.19) 0.97 APTT (25 - 37 SEC) 29 Fibrinogen Activity (200 - 393 MG/DL) 388 Hematology CBC w Diff MAN DIFF ORDERED WBC (4.8 - 10.8 /CUMM) 10.4 RBC (4.20 - 5.40 /CUMM) 3.18 L Hgb (12.0 - 16.0 G/DL) 9.5 L Hct (37 - 47 %) 29.7 L MCV (81.0 - 99.0 FL) 93.4 MCH (27.0 - 31.0 PG) 29.8 RDW (11.5 - 14.5 %) 21.4 H Plt Count (130 - 400 /CUMM) 27 *L MPV (7.4 - 10.4 FL) 10.7 H Gran % (42.2 - 75.2 %) 95.5 H Lymphocytes % (20.5 - 51.1 %) 2.6 L Monocytes % (1.7 - 9.3 %) 1.9 Eosinophils % (0 - 5 %) 0 Basophils % (0.0 - 2.0 %) 0 Absolute Granulocytes (1.4 - 6.5 /CUMM) 10.0 H Segmented Neutrophils (42.2 - 75.2 %) 98 H Absolute Lymphocytes (1.2 - 3.4 /CUMM) 0.3 L Lymphocytes (20.5 - 51.1 %) 1 L Monocytes (1.7 - 9.3 %) 1 L Absolute Monocytes (0.10 - 0.60 /CUMM) 0.2 Absolute Eosinophils (0.0 - 0.7 /CUMM) 0 Absolute Basophils (0.0 - 0.2 /CUMM) 0 Platelet Estimate (ADEQUATE) DECREASED Polychromasia 1+ Hypochromic-Microcytic 1+ Poikilocytosis 1+ Ovalocytes 1+ Alberto Cells FEW PUBS MCHC (33.0 - 37.0 G/DL) 31.9 L Miscellaneous Phlebotomy Draw Site LEFT RADIAL Other Body Source F[place] Total RBCs Counted (%) 100 Toxicology Random Vancomycin (ug/ml) 14.3 Digoxin (0.8 - 2.0 ng/mL) 2.6 *H 05/20 2050 Chemistry Glucose (65 - 99 mg/dL) 286 H Troponin I (< 0.11 ng/ml) 0.34 *H Assessment/Plan Assessment/Plan This patient has uncontrolled diabetes type 2 aggravated by steroid therapy. Her sugar has been high for the past few days. He will place her on Levemir 10 units twice a day with a single dose tonight. In addition we will place her on sliding scale NovoLog every 4 hours. Sliding scale NovoLog every 4 hours should be less than 150 give no insulin, 151-200 give 4 units NovoLog, 201-250 give 6 units NovoLog, 251-300 give 8 units NovoLog, 301-350 give 10 units NovoLog, 351 -400 give 12 units NovoLog. If we cannot achieve close control of her diabetes on this regimen we will place the patient on an insulin drip. Consult Acknowledgment - Thank you for your consult request.
[2017-05-21 23:00] VITALS: BP 120/70
[2017-05-22 04:55] LABS: ABSOLUTE BASOPHIL COUNT 0 /CUMM (0.0-0.2); ABSOLUTE EOSINOPHIL COUNT 0 /CUMM (0.0-0.7); ABSOLUTE LYMPH COUNT 0.2 /CUMM (1.2-3.4); ABSOLUTE MONOCYTE COUNT 0.2 /CUMM (0.10-0.60); BASOPHIL % 0 % (0.0-2.0)
[2017-05-22 05:17] LABS: ABSOLUTE GRANULOCYTE CT 4.4 /CUMM (1.4-6.5); EOSINOPHIL % 0 % (0-5); HEMATOCRIT 24.9 % (37-47); MEAN CORPUSCULAR HGB 29.4 PG (27.0-31.0); MEAN CORPUSCULAR HGB CONC 32.1 G/DL (33.0-37.0); MEAN CORPUSCULAR VOLUME 91.6 FL (81.0-99.0); MEAN PLATELET VOLUME 10.4 FL (7.4-10.4); RBC DISTRIBUTION WIDTH 21.3 % (11.5-14.5); RED BLOOD CELL CT 2.71 /CUMM (4.20-5.40)
[2017-05-22 05:22] LABS: PT 10.2 SEC (9.4-12.5); PTT 29 SEC (25-37)
[2017-05-22 05:44] LABS: WHITE BLOOD CELL COUNT 4.8 /CUMM (4.8-10.8)
[2017-05-22 05:46] LABS: GRANULOCYTE % 91.8 % (42.2-75.2)
[2017-05-22 05:47] LABS: PLATELET COUNT 24 /CUMM (130-400)
--- NOTE | 2017-05-22 07:28 | PN- Cardiology ---
Subjective Subjective: Patient is intubated, awake, alert, no complaints Review of Systems: Non obtainable, intubated Objective Vital Signs and I&Os Vital Signs Date Time Temp Pulse Resp B/P B/P Pulse O2 O2 Flow FiO2 Mean Ox Delivery Rate 05/22 0609 35 05/22 0400 95 Ventilator 35% 05/22 0318 35 05/22 0150 98 102/52 05/22 0034 35 05/22 0000 95 Ventilator 35% 05/21 2300 98.7 124 13 120/70 95 Ventilator 35% 05/21 2235 35 05/21 2000 96 Ventilator 40% 05/21 1940 100 103/57 05/21 1915 40 05/21 1620 40 05/21 1600 98.5 110 16 110/50 96 Ventilator 40% 05/21 1600 96 Ventilator 40% 05/21 1428 40 05/21 1423 118 97/63 05/21 1200 96 Ventilator 40% 05/21 1130 40 05/21 0830 40 05/21 0800 99.4 122 20 130/60 97 Ventilator 50% 05/21 0800 96 Ventilator 50% Intake & Output 05/22 0800 05/22 0000 05/21 1600 05/21 0800 05/21 0000 05/20 1600 Intake Total 1129 5249 521 6690 1166 1136 Output Total 395 331 210 95 60 30 Balance 734 932 343 323 8475 1106 Intake, IV 1129 8290 216 3936 1166 1136 Intake, Oral 0 0 0 0 0 Intake, Tube 90 Irrigant Number 0 0 0 Bowel Movements Output, 0 0 Gastric Drainage Output, Stool 0 Output, Urine 395 331 210 95 60 30 Patient 255 lb Weight Physical Exam: No acute distress HEENT-PERRLA Neck-JVP normal, no bruit Lungs-decreased bS at both bases Heart-S1S2 irregular Abdomen-soft, not tender, BS+ Extremities-chronic dermatitis, dimnished distal pulses mild edema Neuro-awake, alert, non focal Skin no rash Current Medications: Current Medications Sig/Ric Start time Last Medication Dose Route Stop Time Status Admin Acetaminophen 650 MG Q6P PRN 05/19 0300 AC PO Acetaminophen 1,000 MG Q6P PRN 05/19 0300 AC IV Amiodarone HCl/ 360 MG Q6H 05/21 1100 AC 05/22 Dextrose IV 0150 N/A 1 UNIT Amiodarone HCl/ 360 MG Q12H 05/20 1045 [place] 05/21 Dextrose IV 0528 N/A 1 UNIT Ceftazidime 1,000 MG Q12 05/19 1000 [place] 05/20 IV 2148 Doxycycline Hyclate 100 MG Q12 05/20 2200 [place] 05/20 Sodium Chloride 100 ML IV 2148 Hydrocortisone 100 MG Q8 05/19 1639 05/22 Sodium Succinate IV 0516 Insulin Aspart 0 Q4 05/21 1800 DC SC Insulin Aspart 0 Q4H 05/21 1800 05/22 SC 0518 Insulin Aspart 0 Q4 05/21 1615 DC SC Insulin Aspart 0 TIDAC 05/21 1600 DC SC Insulin Aspart 5 UNITS ONCE ONE 05/21 1330 [place] 05/21 OK 05/21 1331 1416 Insulin Detemir 10 UNITS BID 05/21 1530 05/21 SC 2116 Insulin Human Regular 15 UNITS ONCE ONE 05/21 1230 [place] 05/21 OK 05/21 1231 1228 Insulin Human Regular 0 Q6 05/21 0600 [place] 05/21 SC 0530 Norepinephrine 4 MG Q30H 05/20 0800 [place] 05/20 Dextrose/Water 250 ML IV 0800 Pantoprazole Sodium 40 MG DAILY 05/20 0030 05/21 IV 1011 Propofol 1,000 MG Q24H 05/20 0615 05/21 N/A 1 UNIT IV 1937 Sodium Bicarbonate 1,300 MG TID 05/21 1600 05/21 PO 2115 Sodium Chloride 1,000 ML Q10H 05/21 1830 05/22 IV 0353 Sodium Chloride 1,000 ML Q10H 05/19 1915 [place] 05/21 IV 05/21 1113 0533 Vancomycin HCl 1,000 MG ONCE ONE 05/21 1215 [place] 05/21 Sodium Chloride 250 ML IV 05/21 1314 1423 Vancomycin HCl 1,000 MG DAILY 05/19 1000 [place] 05/20 Sodium Chloride 250 ML IV 0940 Results Last 48 Hrs of Labs/Mics: Laboratory Tests 05/22/17 0455: pH 7.51 H, pCO2 28 L, pO2 92, HCO3 22, ABG O2 Sat (Measured) 96.0, P-50 (Temp Corrected) Y, Carboxyhemoglobin 0.3 L, O2 Concentration % 35%, Temperature 98.4 , Respiration Rate 14, O2 Delivery Method ESPRIT, Vent Mode AC, Expiratory Pressure 5, Tidal Volume 550, Phlebotomy Draw Site LEFT RADIAL 05/22/17 0347: Anion Gap 10, Estimated GFR 22 L, Glucose 185 H, Calcium 7.3 L, Phosphorus 4.6 H, Magnesium 2.0, Total Bilirubin 0.2, AST 11 L, ALT 44, Albumin 1.8 L, PT 10.2, INR 0.97, APTT 29, Fibrinogen Activity 244, D-Dimer High Sensitivty 1152 H, CBC w Diff NO MAN DIFF REQ, RBC 2.71 L, MCV 91.6, MCH 29.4, RDW 21.3 H, MPV 10.4, Gran % 91.8 H, Lymphocytes % 4.3 L, Monocytes % 3.9, Eosinophils % 0, Basophils % 0, Absolute Granulocytes 4.4, Absolute Lymphocytes 0.2 L, Absolute Monocytes 0.2, Absolute Eosinophils 0, Absolute Basophils 0, PUBS MCHC 32.1 L, Random Vancomycin 17.8 05/22/17 0004: Troponin I 0.36 *H 05/21/17 1700: Troponin I 0.41 *H 05/21/17 1200: Potassium Cancelled 05/21/17 1131: Urine Osmolality Cancelled 05/21/17 1100: Urine Color YEL, Urine Clarity HAZY H, Urine pH 5.5, Ur Specific Cable >= 1.030, Urine Protein TRACE H, Urine Ketones TRACE H, Urine Nitrite NEG, Urine Bilirubin NEG@ICTO, Urine Urobilinogen 0.2, Ur Leukocyte Esterase NEG, Ur Microscopic SEDIMENT EXAMINED, Urine RBC 25-50 H, Urine WBC 1-3 H, Ur Epithelial Cells RARE, Urine Bacteria RARE H, Micro UA Comment BUDDING YEAST H , Urine Hemoglobin LARGE H, Urine Glucose NEG 05/21/17 1100: Urine Osmolality 472, Ur Random Creatinine 125.6, Ur Random Sodium 6 L, Ur Random Potassium 92.4, Fraction Sodium Excret 0.1 05/21/17 0945: Troponin I 0.37 *H 05/21/17 0900: Potassium Cancelled 05/21/17 0445: pH 7.39, pCO2 27 L, pO2 95, HCO3 16 L, ABG O2 Sat (Measured) 96.0, P-50 (Temp Corrected) Y, Carboxyhemoglobin 0.3 L, O2 Concentration % 50%, Temperature 98.4 , Respiration Rate 14, O2 Delivery Method ESPRIT, Vent Mode AC, Expiratory Pressure 5, Tidal Volume 550, Phlebotomy Draw Site LEFT RADIAL 05/21/17 0306: Anion Gap 20 H, Estimated GFR 18 L, Glucose 331 H, Calcium 7.6 L, Phosphorus 7.3 H, Magnesium 2.0, Total Bilirubin 0.5, AST 14, ALT 41, Troponin I 0.36 *H, Albumin 2.0 L, TSH 0.208 L, PT 10.2, INR 0.97, APTT 29, Fibrinogen Activity 388, CBC w Diff MAN DIFF ORDERED, RBC 3.18 L, MCV 93.4, MCH 29.8, RDW 21.4 H, MPV 10.7 H, Gran % 95.5 H, Lymphocytes % 2.6 L, Monocytes % 1.9, Eosinophils % 0, Basophils % 0, Absolute Granulocytes 10.0 H, Segmented Neutrophils 98 H, Absolute Lymphocytes 0.3 L, Lymphocytes 1 L, Monocytes 1 L, Absolute Monocytes 0.2, Absolute Eosinophils 0, Absolute Basophils 0, Platelet Estimate DECREASED, Polychromasia 1+, Hypochromic-Microcytic 1+, Poikilocytosis 1+, Ovalocytes 1+, Alberto Cells FEW, PUBS MCHC 31.9 L, Fld Total RBCs Counted 100, Random Vancomycin 14.3, Digoxin 2.6 *H 05/20/17 2051: Glucose 286 H, Troponin I 0.34 *H 05/20/17 1500: Troponin I 0.27 *H 05/20/17 0950: pH 7.38, pCO2 32 L, pO2 153 H, HCO3 18 L, ABG O2 Sat (Measured) 98.0, Carboxyhemoglobin 0.3 L, O2 Concentration % 80, Respiration Rate 14, O2 Delivery Method VENT, Vent Mode AC, Expiratory Pressure 5, Tidal Volume 550, Phlebotomy Draw Site LEFT RADIAL 05/20/17 0830: Troponin I 0.25 *H 05/20/17 0800: Troponin I Cancelled Recent Imaging Studies: CXR-persistent bibasilar densities Tely-AF 100-120 bpm Assessment/Plan Assessment/Plan 1. Acute hypoxic respiratory failure/septic shock likely due to pneumonia, remains intubated, but 2. Metabolic encephalopathy-improved 3. Rapid atrial fibrillation. Rate better controlled with iv amiodarone. Patient had atrial fibrillation last admission in April with rapid rate, she was not hypotensive and tolerated AF well. There is no evidence of tachycardia-induced cardiomyopathy, LVEF improved on current echo. No indication for urgent cardioversion, especially if anticoagulation may not be restarted due to low platelet count. 4. GARCÍA-creatinine slightly better 5.Thrombocytopenia/ITP, no hydrocortison, seen by hematology. Plt count not improved 6. TSH low-?sick euthyroid vs hyperthyroidism contributing to rapid AF? 7. PVD with severe left SFA disease, no surgical intervention as per vascular surgery 8. Abnormal troponin likely due to demand ischemia/hypoxia. 9. Elevated digoxin level, no off digoxin, no significant arrhytmia that would require Digibind. continue iv fluids repeat CXR continue atb as per ID\ check free T4, T3-ask Dr. Ely to comment on TFT's continue iv Amiodarone 0.5 mg/min no anticoagulation for now due to low platelet count hold metoprolol and cardizem due to previous hypotension, we will restart metoprolol once BP stable and after extubation Weaning trials as per pulmonary dig level tomorrow Continue telemetry? Yes
--- NOTE | 2017-05-22 07:39 | PN- Diabetes ---
Assessment/Plan Assessment: She remains intubated and sedated on a respirator. She is requiring less oxygen. She was started on 10 units of Levemir twice a day yesterday along with sliding scale NovoLog every 4 hours. Her blood sugar at 3:47 AM in the lab was 185. Her creatinine is down to 2.1. Her last fingerstick blood sugar at 6 AM is 224. The patient remains on hydrocortisone intravenously 100 mg every 8 hours. Plan: Suggest continue the present insulin regimen. We need to begin to think about nutrition in this patient. If tube feedings are begun we will need to adjust her insulin regimen further. Subjective Subjective: Patient is intubated and sedated Objective Last 24 Hrs of Vital Signs/I&O Vital Signs Date Time Temp Pulse Resp B/P B/P Pulse O2 O2 Flow FiO2 Mean Ox Delivery Rate 05/22 0609 35 05/22 0400 95 Ventilator 35% 05/22 0318 35 05/22 0150 98 102/52 05/22 0034 35 05/22 0000 95 Ventilator 35% 05/21 2300 98.7 124 13 120/70 95 Ventilator 35% 05/21 2235 35 05/21 2000 96 Ventilator 40% 05/21 1940 100 103/57 05/21 1915 40 05/21 1620 40 05/21 1600 98.5 110 16 110/50 96 Ventilator 40% 05/21 1600 96 Ventilator 40% 05/21 1428 40 05/21 1423 118 97/63 05/21 1200 96 Ventilator 40% 05/21 1130 40 05/21 0830 40 05/21 0800 99.4 122 20 130/60 97 Ventilator 50% 05/21 0800 96 Ventilator 50% Intake & Output 05/22 0800 05/22 0000 05/21 1600 Intake Total 1129 1263 355 Output Total 395 331 210 Balance 734 932 145 Intake, IV 1129 1173 355 Intake, Oral 0 0 Intake, Tube 90 Irrigant Number 0 Bowel Movements Output, Stool 0 Output, Urine 395 331 210 Patient 255 lb Weight Vital Signs Date Time Temp Pulse Resp B/P B/P Pulse O2 O2 Flow FiO2 Mean Ox Delivery Rate 05/22 0609 35 05/22 0400 95 Ventilator 35% 05/22 0318 35 05/22 0150 98 102/52 05/22 0034 35 05/22 0000 95 Ventilator 35% 05/21 2300 98.7 124 13 120/70 95 Ventilator 35% 05/21 2235 35 05/21 2000 96 Ventilator 40% 05/21 1940 100 103/57 05/21 1915 40 05/21 1620 40 05/21 1600 98.5 110 16 110/50 96 Ventilator 40% 05/21 1600 96 Ventilator 40% 05/21 1428 40 05/21 1423 118 97/63 05/21 1200 96 Ventilator 40% 05/21 1130 40 05/21 0830 40 05/21 0800 99.4 122 20 130/60 97 Ventilator 50% 05/21 0800 96 Ventilator 50% Intake & Output 05/22 0800 05/22 0000 05/21 1600 Intake Total 1129 1263 355 Output Total 395 331 210 Balance 734 932 145 Intake, IV 1129 1173 355 Intake, Oral 0 0 Intake, Tube 90 Irrigant Number 0 Bowel Movements Output, Stool 0 Output, Urine 395 331 210 Patient 255 lb Weight Physical Exam General Appearance: sedated, intubated Head: normal appearance Neck: normal inspection Respiratory: normal breath sounds Cardiovascular: regular rate/rhythm Abdomen: normal bowel sounds Extremities: swelling Current Medications: Current Medications Sig/Ric Start time Last Medication Dose Route Stop Time Status Admin Acetaminophen 650 MG Q6P PRN 05/19 0300 AC PO Acetaminophen 1,000 MG Q6P PRN 05/19 0300 AC IV Amiodarone HCl/ 360 MG Q6H 05/21 1100 AC 05/22 Dextrose IV 0150 N/A 1 UNIT Amiodarone HCl/ 360 MG Q12H 05/20 1045 DC 05/21 Dextrose IV 0528 N/A 1 UNIT Ceftazidime 1,000 MG Q12 05/19 1000 DC 05/20 IV 2148 Doxycycline Hyclate 100 MG Q12 05/20 2200 DC 05/20 Sodium Chloride 100 ML IV 2148 Hydrocortisone 100 MG Q8 05/19 1639 AC 05/22 Sodium Succinate IV 0516 Insulin Aspart 0 Q4 05/21 1800 DC SC Insulin Aspart 0 Q4H 05/21 1800 AC 05/22 SC 0518 Insulin Aspart 0 Q4 05/21 1615 DC SC Insulin Aspart 0 TIDAC 05/21 1600 DC SC Insulin Aspart 5 UNITS ONCE ONE 05/21 1330 DC 05/21 SC 05/21 1331 1416 Insulin Detemir 10 UNITS BID 05/21 1530 AC 05/21 SC 2116 Insulin Human Regular 15 UNITS ONCE ONE 05/21 1230 [place] 05/21 [place] 05/21 1231 1228 Insulin Human Regular 0 Q6 05/21 0600 [place] 05/21 SC 0530 Norepinephrine 4 MG Q30H 05/20 0800 [place] 05/20 Dextrose/Water 250 ML IV 0800 Pantoprazole Sodium 40 MG DAILY 05/20 0030 05/21 IV 1011 Propofol 1,000 MG Q24H 05/20 0615 05/21 N/A 1 UNIT IV 1937 Sodium Bicarbonate 1,300 MG TID 05/21 1600 05/21 PO 2115 Sodium Chloride 1,000 ML Q10H 05/21 1830 05/22 IV 0353 Sodium Chloride 1,000 ML Q10H 05/19 1915 [place] 05/21 IV 05/21 1113 0533 Vancomycin HCl 1,000 MG ONCE ONE 05/21 1215 [place] 05/21 Sodium Chloride 250 ML IV 05/21 1314 1423 Vancomycin HCl 1,000 MG DAILY 05/19 1000 [place] 05/20 Sodium Chloride 250 ML IV 0940 Findings Pertinent Lab/Silvano Results: Laboratory Tests 05/22 05/22 05/22 0455 0347 0004 Blood Gas pH (7.35 - 7.45 PH) 7.51 H pCO2 (35 - 45 TORR) 28 L pO2 (80 - 100 TORR) 92 HCO3 (21 - 28 MEQ/L) 22 ABG O2 Sat (Measured) (>96.0 %) 96.0 P-50 (Temp Corrected) Y Carboxyhemoglobin (1.5 - 5.0 %) 0.3 L O2 Concentration % 35% Temperature (97.0 - 100.0 FARH) 98.4 Respiration Rate (BPM) 14 O2 Delivery Method ESPRIT Vent Mode AC Expiratory Pressure (CMH2O/P) 5 Tidal Volume (CC) 550 Chemistry Sodium (137 - 145 mmol/L) 142 Potassium (3.5 - 5.1 mmol/L) 3.9 Chloride (98 - 107 mmol/L) 107 Carbon Dioxide (22 - 30 mmol/L) 25 Anion Gap (5 - 16) 10 BUN (7 - 17 mg/dL) 74 H Creatinine (0.5 - 1.0 mg/dL) 2.1 H Estimated GFR (>60 ml/min) 22 L Glucose (65 - 99 mg/dL) 185 H Calcium (8.4 - 10.2 mg/dL) 7.3 L Phosphorus (2.5 - 4.5 mg/dL) 4.6 H Magnesium (1.6 - 2.3 mg/dL) 2.0 Total Bilirubin (0.2 - 1.3 mg/dL) 0.2 AST (14 - 36 U/L) 11 L ALT (9 - 52 U/L) 44 Troponin I (< 0.11 ng/ml) 0.36 *H Albumin (3.5 - 5.0 g/dL) 1.8 L Coagulation PT (9.4 - 12.5 SEC) 10.2 INR (0.90 - 1.19) 0.97 APTT (25 - 37 SEC) 29 Fibrinogen Activity (200 - 393 MG/DL) 244 D-Dimer High Sensitivty (0 - 243 ng/ml) 1152 H Hematology CBC w Diff NO MAN DIFF REQ WBC (4.8 - 10.8 /CUMM) 4.8 RBC (4.20 - 5.40 /CUMM) 2.71 L Hgb (12.0 - 16.0 G/DL) 8.0 L Hct (37 - 47 %) 24.9 L MCV (81.0 - 99.0 FL) 91.6 MCH (27.0 - 31.0 PG) 29.4 RDW (11.5 - 14.5 %) 21.3 H Plt Count (130 - 400 /CUMM) 24 *L MPV (7.4 - 10.4 FL) 10.4 Gran % (42.2 - 75.2 %) 91.8 H Lymphocytes % (20.5 - 51.1 %) 4.3 L Monocytes % (1.7 - 9.3 %) 3.9 Eosinophils % (0 - 5 %) 0 Basophils % (0.0 - 2.0 %) 0 Absolute Granulocytes (1.4 - 6.5 /CUMM) 4.4 Absolute Lymphocytes (1.2 - 3.4 /CUMM) 0.2 L Absolute Monocytes (0.10 - 0.60 /CUMM) 0.2 Absolute Eosinophils (0.0 - 0.7 /CUMM) 0 Absolute Basophils (0.0 - 0.2 /CUMM) 0 PUBS MCHC (33.0 - 37.0 G/DL) 32.1 L Miscellaneous Phlebotomy Draw Site LEFT RADIAL Toxicology Random Vancomycin (ug/ml) 17.8 05/21 05/21 05/21 1700 1200 1131 Chemistry Potassium (3.5 - 5.1 mmol/L) 4.7 Cancelled Troponin I (< 0.11 ng/ml) 0.41 *H Urines Urine Osmolality Cancelled 05/21 05/21 05/21 1100 1100 0945 Chemistry Potassium (3.5 - 5.1 mmol/L) 5.3 H Troponin I (< 0.11 ng/ml) 0.37 *H Urines Urine Color (YEL,AMB,STR) YEL Urine Clarity (CLEAR) HAZY H Urine pH (5.0 - 8.0) 5.5 Ur Specific Tripp (1.001 - 1.035) >= 1.030 Urine Protein (NEG,<30 MG/DL) TRACE H Urine Ketones (NEG) TRACE H Urine Nitrite (NEG) NEG Urine Bilirubin (NEG) NEG@ICTO Urine Urobilinogen (0.1 - 1.0 EU/dl) 0.2 Ur Leukocyte Esterase (NEG) NEG Ur Microscopic SEDIMENT EXAMINED Urine RBC (0 - 5 /HPF) 25-50 H Urine WBC (0 - 2 /HPF) 1-3 H Ur Epithelial Cells (NONE,FEW) RARE Urine Bacteria (NEG/NONE) RARE H Micro UA Comment BUDDING YEAST H Urine Hemoglobin (NEG) LARGE H Urine Osmolality (300 - 1000 MOSM/KG) 472 Ur Random Creatinine (mg/dL) 125.6 Ur Random Sodium (30 - 90 mmol/L) 6 L Ur Random Potassium (mmol/L) 92.4 Fraction Sodium Excret (<1% %) 0.1 Urine Glucose (N MG/DL) NEG 05/21 0900 Chemistry Potassium Cancelled
--- NOTE | 2017-05-22 07:43 | RADIOLOGY REPORT ---
EXAMINATION: CR PORTABLE CHEST CLINICAL INFORMATION: Placement of lines and tubes. Intubated. COMPARISON: Several prior chest x-rays, most recent of which is dated 05/21/2017. TECHNIQUE: Portable AP semierect view of the chest was obtained. FINDINGS: Endotracheal tube tip approximately 5 cm above the krystal. Enteric tube courses into the abdomen with tip not included. Right jugular central venous line is in the deep SVC. Cardiomediastinal silhouette is enlarged, unchanged. Calcification and ectasia of the aorta is stable. Low lung volumes are noted with bibasilar opacities, left greater than right, similar to previous exam. Central vascular congestion is again noted. There are likely small bilateral pleural effusions, left greater than right. No pneumothorax is seen. Right humeral head contacts are seen, likely related to prior rotator cuff repair. Bony structures otherwise grossly unremarkable to the extent seen. IMPRESSION: 1. Endotracheal tube tip 5 cm above the krystal. 2. Enteric tube courses into the abdomen with tip not included on this exam. 3. Right jugular central venous line tip in the deep SVC. 4. No interval change in bilateral pleural effusions, left greater than right, with associated bibasilar atelectasis or consolidation.
[2017-05-22 08:00] VITALS: BP 140/64
--- NOTE | 2017-05-22 08:00 | Event Note ---
Event Note Event Note: Situation: Talked to Dr Nielsen who thinks there might be some other process involved in the thrombocytopenia, other than ITP. Suggests giving a trial of a unit platelets Brief: Talked to the patient's son, explained the reason for the transfusion and obtained telephone consent. A/R: * Will transfuse 1 unit and repeat CBC 1 hour afterwards to monitor the result.
--- NOTE | 2017-05-22 08:46 | PN- Hematology ---
Subjective Subjective: She remains intubated. She is arousable. She denies any new pain. She has no fever or chills. Review of Systems: Limited secondary to intubation Objective Vital Signs and I&Os Vital Signs Date Time Temp Pulse Resp B/P B/P Pulse O2 O2 Flow FiO2 Mean Ox Delivery Rate 05/22 0822 35 05/22 0756 120 112/67 05/22 0609 35 05/22 0400 95 Ventilator 35% 05/22 0318 35 05/22 0150 98 102/52 05/22 0034 35 05/22 0000 95 Ventilator 35% 05/21 2300 98.7 124 13 120/70 95 Ventilator 35% 05/21 2235 35 05/21 2000 96 Ventilator 40% 05/21 1940 100 103/57 05/21 1915 40 05/21 1620 40 05/21 1600 98.5 110 16 110/50 96 Ventilator 40% 05/21 1600 96 Ventilator 40% 05/21 1428 40 05/21 1423 118 97/63 05/21 1200 96 Ventilator 40% 05/21 1130 40 05/21 0830 40 Intake & Output 05/22 1600 05/22 0800 05/22 0000 05/21 1600 05/21 0800 05/21 0000 Intake Total 1129 2508 444 0919 1166 Output Total 395 331 210 95 60 Balance 734 932 575 816 8946 Intake, IV 1129 2813 420 6982 1166 Intake, Oral 0 0 0 0 Intake, Tube 90 Irrigant Number 0 0 Bowel Movements Output, 0 0 Gastric Drainage Output, Stool 0 Output, Urine 395 331 210 95 60 Patient 115.694 kg Weight Physical Exam: General Appearance: sedated, intubated Ears, Nose, Throat: ET tube in place Respiratory: chest non-tender, crackles, respiratory distress, on ventilator, FiO2 50% Cardiovascular: tachycardia, irregularly irregular Abdomen: normal bowel sounds, soft, non-tender Extremities: bilateral upper extremity 2+ edema, hyperpigmented lower extremities Neurologic/Psychiatric: intubated and sedated but arousable Current Medications: Current Medications Sig/Ric Start time Last Medication Dose Route Stop Time Status Admin Acetaminophen 650 MG Q6P PRN 05/19 0300 AC PO Acetaminophen 1,000 MG Q6P PRN 05/19 0300 AC IV Amiodarone HCl/ 360 MG Q6H 05/21 1100 AC 05/22 Dextrose IV 0756 N/A 1 UNIT Amiodarone HCl/ 360 MG Q12H 05/20 1045 NJ 05/21 Dextrose IV 0528 N/A 1 UNIT Ceftazidime 1,000 MG Q12 05/19 1000 NJ 05/20 IV 2148 Doxycycline Hyclate 100 MG Q12 05/20 2200 NJ 05/20 Sodium Chloride 100 ML IV 2148 Hydrocortisone 100 MG Q8 05/19 1639 05/22 Sodium Succinate IV 0516 Insulin Aspart 0 Q4 05/21 1800 DC SC Insulin Aspart 0 Q4H 05/21 1800 05/22 SC 0518 Insulin Aspart 0 Q4 05/21 1615 DC SC Insulin Aspart 0 TIDAC 05/21 1600 DC SC Insulin Aspart 5 UNITS ONCE ONE 05/21 1330 NJ 05/21 [place] 05/21 1331 1416 Insulin Detemir 10 UNITS BID 05/21 1530 05/21 SC 2116 Insulin Human Regular 15 UNITS ONCE ONE 05/21 1230 NJ 05/21 [place] 05/21 1231 1228 Insulin Human Regular 0 Q6 05/21 0600 NJ 05/21 SC 0530 Norepinephrine 4 MG Q30H 05/20 0800 NJ 05/20 Dextrose/Water 250 ML IV 0800 Pantoprazole Sodium 40 MG DAILY 05/20 0030 05/21 IV 1011 Propofol 1,000 MG Q24H 05/20 0615 05/21 N/A 1 UNIT IV 1937 Sodium Bicarbonate 1,300 MG TID 05/21 1600 05/21 PO 2115 Sodium Chloride 1,000 ML Q10H 05/21 1830 05/22 IV 0353 Sodium Chloride 1,000 ML Q10H 05/19 1915 NJ 05/21 IV 05/21 1113 0533 Vancomycin HCl 1,000 MG ONCE ONE 05/21 1215 NJ 05/21 Sodium Chloride 250 ML IV 05/21 1314 1423 Vancomycin HCl 1,000 MG DAILY 05/19 1000 NJ 05/20 Sodium Chloride 250 ML IV 0940 Results Last 24 Hours of Lab Results: Laboratory Tests 05/22 05/22 05/22 0455 0347 0004 Blood Gas pH (7.35 - 7.45 PH) 7.51 H pCO2 (35 - 45 TORR) 28 L pO2 (80 - 100 TORR) 92 HCO3 (21 - 28 MEQ/L) 22 ABG O2 Sat (Measured) (>96.0 %) 96.0 P-50 (Temp Corrected) Y Carboxyhemoglobin (1.5 - 5.0 %) 0.3 L O2 Concentration % 35% Temperature (97.0 - 100.0 FARH) 98.4 Respiration Rate (BPM) 14 O2 Delivery Method ESPRIT Vent Mode AC Expiratory Pressure (CMH2O/P) 5 Tidal Volume (CC) 550 Chemistry Sodium (137 - 145 mmol/L) 142 Potassium (3.5 - 5.1 mmol/L) 3.9 Chloride (98 - 107 mmol/L) 107 Carbon Dioxide (22 - 30 mmol/L) 25 Anion Gap (5 - 16) 10 BUN (7 - 17 mg/dL) 74 H Creatinine (0.5 - 1.0 mg/dL) 2.1 H Estimated GFR (>60 ml/min) 22 L Glucose (65 - 99 mg/dL) 185 H Calcium (8.4 - 10.2 mg/dL) 7.3 L Phosphorus (2.5 - 4.5 mg/dL) 4.6 H Magnesium (1.6 - 2.3 mg/dL) 2.0 Total Bilirubin (0.2 - 1.3 mg/dL) 0.2 AST (14 - 36 U/L) 11 L ALT (9 - 52 U/L) 44 Troponin I (< 0.11 ng/ml) 0.36 *H Albumin (3.5 - 5.0 g/dL) 1.8 L Free T4 (0.85 - 1.93 ng/dL) Pending Total T3 (0.97 - 1.69 ng/mL) Pending Coagulation PT (9.4 - 12.5 SEC) 10.2 INR (0.90 - 1.19) 0.97 APTT (25 - 37 SEC) 29 Fibrinogen Activity (200 - 393 MG/DL) 244 D-Dimer High Sensitivty (0 - 243 ng/ml) 1152 H Hematology CBC w Diff NO MAN DIFF REQ WBC (4.8 - 10.8 /CUMM) 4.8 RBC (4.20 - 5.40 /CUMM) 2.71 L Hgb (12.0 - 16.0 G/DL) 8.0 L Hct (37 - 47 %) 24.9 L MCV (81.0 - 99.0 FL) 91.6 MCH (27.0 - 31.0 PG) 29.4 RDW (11.5 - 14.5 %) 21.3 H Plt Count (130 - 400 /CUMM) 24 *L MPV (7.4 - 10.4 FL) 10.4 Gran % (42.2 - 75.2 %) 91.8 H Lymphocytes % (20.5 - 51.1 %) 4.3 L Monocytes % (1.7 - 9.3 %) 3.9 Eosinophils % (0 - 5 %) 0 Basophils % (0.0 - 2.0 %) 0 Absolute Granulocytes (1.4 - 6.5 /CUMM) 4.4 Absolute Lymphocytes (1.2 - 3.4 /CUMM) 0.2 L Absolute Monocytes (0.10 - 0.60 /CUMM) 0.2 Absolute Eosinophils (0.0 - 0.7 /CUMM) 0 Absolute Basophils (0.0 - 0.2 /CUMM) 0 PUBS MCHC (33.0 - 37.0 G/DL) 32.1 L Miscellaneous Phlebotomy Draw Site LEFT RADIAL Toxicology Random Vancomycin (ug/ml) 17.8 05/21 05/21 05/21 1700 1200 1131 Chemistry Potassium (3.5 - 5.1 mmol/L) 4.7 Cancelled Troponin I (< 0.11 ng/ml) 0.41 *H Urines Urine Osmolality Cancelled 05/21 05/21 05/21 1100 1100 0945 Chemistry Potassium (3.5 - 5.1 mmol/L) 5.3 H Troponin I (< 0.11 ng/ml) 0.37 *H Urines Urine Color (YEL,AMB,STR) YEL Urine Clarity (CLEAR) HAZY H Urine pH (5.0 - 8.0) 5.5 Ur Specific [place] (1.001 - 1.035) >= 1.030 Urine Protein (NEG,<30 MG/DL) TRACE H Urine Ketones (NEG) TRACE H Urine Nitrite (NEG) NEG Urine Bilirubin (NEG) NEG@ICTO Urine Urobilinogen (0.1 - 1.0 EU/dl) 0.2 Ur Leukocyte Esterase (NEG) NEG Ur Microscopic SEDIMENT EXAMINED Urine RBC (0 - 5 /HPF) 25-50 H Urine WBC (0 - 2 /HPF) 1-3 H Ur Epithelial Cells (NONE,FEW) RARE Urine Bacteria (NEG/NONE) RARE H Micro UA Comment BUDDING YEAST H Urine Hemoglobin (NEG) LARGE H Urine Osmolality (300 - 1000 MOSM/KG) 472 Ur Random Creatinine (mg/dL) 125.6 Ur Random Sodium (30 - 90 mmol/L) 6 L Ur Random Potassium (mmol/L) 92.4 Fraction Sodium Excret (<1% %) 0.1 Urine Glucose (N MG/DL) NEG 05/21 0900 Chemistry Potassium Cancelled Recent Imaging Studies: Chest x-ray 05/22/2017 1. Endotracheal tube tip 5 cm above the krystal. 2. Enteric tube courses into the abdomen with tip not included on this exam. 3. Right jugular central venous line tip in the deep SVC. 4. No interval change in bilateral pleural effusions, left greater than right, with associated bibasilar atelectasis or consolidation. Assessment/Plan Assessment/Recommendations: Ms. 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 She has been having new cough a few days ago. CTA demonstrated moderate atelectasis/consolidation in the left upper and lower lobes. There was mild right base atelectasis and moderate left and small-to- moderate right pleural effusions. She remains hypotensive and is on Levophed. She is being treated empirically for sepsis. Her platelet count remains relatively stable at 24,000. Her hemoglobin did decrease from 9.5 down to 8.0 with hematocrit of 24.9 today. She has no obvious bleeding. She does have large blood in her urine. Her recommended given her a 1 unit of pooled platelet. She did have CBC check 1 hour after completion of transfusion. Her platelet count has not increased significantly but has been stable. She is on hydrocortisone 100 mg every 8 hours. She has not responded to well on steroids. This may be related to underlying sepsis in addition to her ITP. Unfortunately, her current clinical condition makes it difficult to treat her with second-line therapy. IVIG may not be the best option for the patient at the moment given her fluid overload status and intubation. If platelet count decreased further, IVIG may be given. Rituximab may be consider after recovery. DIC panel should be continue to check as a fibrinogen did decrease. She will continue with antibiotics for now. Cardiology is following for her atrial fibrillation. Acute hypoxic respiratory failure with shock: -management as per ICU -continue empiric broad spectrum antibiotics -follow up cultures -infectious disease following Chronic ITP: -continue hydrocortisone 100 mg every 8 hours -continues to monitor the fibrinogen and PT/PTT -transfuse 1 unit of pooled platelet and check CBC 1 hour after with -IVIG and transfusion if acutely bleeding -will likely need second line therapy once stable Atrial fibrillation with RVR: -cardiology following -amiodarone drip GARCÍA: -nephrology following -monitor for now Please call [phone] with any questions or concerns. Problem List: 1. Pneumonia 2. Atrial fibrillation with RVR 3. Thrombocytopenia
--- NOTE | 2017-05-22 08:51 | PN- Resident CRCU ---
[facility] RAMOS,[facility] 05[facility] 0851: Subjective HPI/CRCU Issues: Atrial Fibrilliation Hypotension Acute Hypoxic Respiratory Failure 24 Hour Events: Remains intubated. FiO2 decreased to 35%. Her culture shows MSSA. Vanc levels have been therapeutic this morning. Blood pressure has been stable off pressors. Patient is sedated this morning and unable to offer any complaints. Objective Vital Signs & I&O Last 8 Hrs of Vitals and I&O: Intake & Output 05/22 1600 Intake Total Output Total Balance Patient 266 lb Weight Weight Bed scale Measurement Method Exam General Appearance: sedated, intubated, lethargic Head: atraumatic, normal appearance Neck: normal inspection Respiratory: chest non-tender, rhonchi Cardiovascular: regular rate/rhythm Gastrointestinal: soft, non-tender Extremities: no edema, stasis skin changes. Skin: warm/dry, stasis skin changes Skin Temp/Moisture Exam: Warm/Dry Sepsis Skin Exam (color): Normal for Ethnicity Current Medications: Current Medications Sig/Ric Start time Last Medication Dose Route Stop Time Status Admin Acetaminophen 650 MG Q6P PRN 05/19 0300 AC PO Acetaminophen 1,000 MG Q6P PRN 05/19 0300 AC IV Amiodarone HCl/ 360 MG Q6H 05/21 1100 AC 05/22 Dextrose IV 0756 N/A 1 UNIT Hydrocortisone 100 MG Q8 05/19 1639 05/22 Sodium Succinate IV 0516 Insulin Aspart 0 Q4 05/21 1800 DC SC Insulin Aspart 0 Q4H 05/21 1800 AC 05/22 SC 1002 Insulin Aspart 0 Q4 05/21 1615 DC SC Insulin Aspart 0 TIDAC 05/21 1600 DC SC Insulin Aspart 5 UNITS ONCE ONE 05/21 1330 DC 05/21 KS 05/21 1331 1416 Insulin Detemir 10 UNITS BID 05/21 1530 05/22 KS 0959 Insulin Human Regular 15 UNITS ONCE ONE 05/21 1230 DC 05/21 KS 05/21 1231 1228 Insulin Human Regular 0 Q6 05/21 0600 ME 05/21 SC 0530 Oxacillin Sodium 2,000 MG Q4 05/22 1400 DC Dextrose/Water 100 ML IV Oxacillin Sodium 2,000 MG Q4 05/22 1400 AC Sodium Chloride 100 ML IV Pantoprazole Sodium 40 MG DAILY 05/20 0030 05/22 IV 0953 Propofol 1,000 MG Q24H 05/20 0615 AC 05/21 N/A 1 UNIT IV 1937 Sodium Bicarbonate 1,300 MG TID 05/21 1600 DC 05/22 PO 0952 Sodium Chloride 1,000 ML Q10H 05/21 1830 AC 05/22 IV 0353 Vancomycin HCl 1,000 MG ONCE ONE 05/21 1215 DC 05/21 Sodium Chloride 250 ML IV 05/21 1314 1423 Impression/Plan Impression/Problem List Impression: 86 year old woman with past medical history of hypertension, hyperlipidemia, [place] s/p PCI with stent, diabetes mellitus, and restless leg syndrome, history of atrial fibrillation with anticoagulation on hold due to severe thrombocytopenia was sent in from extended care facility for hypoxia, leukocytosis and productive cough. She was admitted on telemetry floor and transfered to ICU yesterday after patient desaturated became unresponsive. Assessment and Plan: Acute hypoxic respiratory failure likely secondary to HCAP: * Her white count has normalized and she's been afebrile. Her sputum culture is growing MSSA. * Started on Oxacillin 2g q4 * Currently intubated with FiO2 of 35%. * ID recs appreciated. Atrial Fibrilliation with Hypotension: * Oral metoprolol and cardizem on hold due to hypotension. * Digoxin has been discontinued. * Currently on Amiodarone drip at 1mg. * AC on hold due to thrombocytopenia * Will continue IVF with NS @ 100ml/hr * Levophed was discontinued on 05/20 as blood pressure had been stable. * Echo - Normal left ventricular ejection fraction visually estimated at > 60% . Immune Thrombocytopenia: * Previously responded to oral Prednisone. She was on high dose 150mg/day * Currently on IV Hydrocortisone 100mg q8. Will continue. * Daily CBC * Hematology recommends 1 unit of Plt transfusion. Will check CBC after transfusion * DIC panel has been negative today. Will follow for another day. GARCÍA on CKD: * Cr improving. Currently 2.1. * Was likely contrast induced nephropathy * Will continue IVF * Nephro recs appreciated. Lower Extremity Skin Changes: * Was evaluated by vascular surgery. Recommend no surgical intervention at this time. * Cellulitis seems unlikely. History of restless leg syndrome: * Sinemet was recently discontinued * Lyrica on hold currently. DVT Prophylaxis: ALPS Code: Full Problem List: 1. Pneumonia Pain Ratin Tomorrow's Labs & Rationales: CBC, ICU bundle, DIC panel, ABG, dig level Plan DVT/Prophylaxis: mechanical Jordi Pyle MD 05/22/17 1037: Attending MD Review Statement Attending Sign Off Attending Cosign Statement: I have: examined this patient, reviewed [facility] EMR data, personally reviewd images, discussd w/resident/PA/PR[employer]ESSIONAL [employer]OPPER, discussed mgmt plan w/ida, discussed mgmt plan w/CM, discussed mgmt plan w/pt, agreed w/resident/PA/PROFESSIONAL SHOPPER, amended to note. Other Findings: Impression 86 year old woman * resoloved septic shock * a.fib RVR * acute hypoxemic respiratory failure * GARCÍA Plan -off levophed -tailor abx per ID -cardiology, ID f/u -no PE -f/u hematology recommendations, stress steroids can be tapered per heme -endocrinology appreciated -reduce tv to 500 -nephrology consultation DVT prophylaxis at all times TTS 35 min DVT prophylaxis at all times TTS 35 min
--- NOTE | 2017-05-22 11:04 | PN- Infect Dx ---
Subjective Subjective: Afebrile on steroids without complaints Objective Last 24 Hrs of Vital Signs/I&O Vital Signs Date Time Temp Pulse Resp B/P B/P Pulse O2 O2 Flow FiO2 Mean Ox Delivery Rate 05/22 0822 35 05/22 0800 97 Ventilator 35% 05/22 0800 97.6 88 14 140/64 98 Ventilator 35% 05/22 0756 120 112/67 05/22 0609 35 05/22 0400 95 Ventilator 35% 05/22 0318 35 05/22 0150 98 102/52 05/22 0034 35 05/22 0000 95 Ventilator 35% 05/21 2300 98.7 124 13 120/70 95 Ventilator 35% 05/21 2235 35 05/21 2000 96 Ventilator 40% 05/21 1940 100 103/57 05/21 1915 40 05/21 1620 40 05/21 1600 98.5 110 16 110/50 96 Ventilator 40% 05/21 1600 96 Ventilator 40% 05/21 1428 40 05/21 1423 118 97/63 05/21 1200 96 Ventilator 40% 05/21 1130 40 Intake & Output 05/22 1600 05/22 0800 05/22 0000 Intake Total 1129 1263 Output Total 395 331 Balance 734 932 Intake, IV 1129 1173 Intake, Oral 0 0 Intake, Tube 90 Irrigant Number 0 Bowel Movements Output, Stool 0 Output, Urine 395 331 Patient 266 lb Weight Weight Bed scale Measurement Method Physical Exam Other Physical Findings: She is awake and alert on the ventilator in no acute distress Skin scattered ecchymoses Neck right IJ triple-lumen catheter with no inflammation at the site Lungs bilateral rhonchi Heart irregular rhythm with no murmur Extremities chronic changes to both lower extremities; right upper extremity swelling Faust catheter remains in place Results Last 24 Hours of Lab Results: Laboratory Tests 05/22 05/22 05/22 0455 0347 0004 Blood Gas pH (7.35 - 7.45 PH) 7.51 H pCO2 (35 - 45 TORR) 28 L pO2 (80 - 100 TORR) 92 HCO3 (21 - 28 MEQ/L) 22 ABG O2 Sat (Measured) (>96.0 %) 96.0 P-50 (Temp Corrected) Y Carboxyhemoglobin (1.5 - 5.0 %) 0.3 L O2 Concentration % 35% Temperature (97.0 - 100.0 FARH) 98.4 Respiration Rate (BPM) 14 O2 Delivery Method ESPRIT Vent Mode AC Expiratory Pressure (CMH2O/P) 5 Tidal Volume (CC) 550 Chemistry Sodium (137 - 145 mmol/L) 142 Potassium (3.5 - 5.1 mmol/L) 3.9 Chloride (98 - 107 mmol/L) 107 Carbon Dioxide (22 - 30 mmol/L) 25 Anion Gap (5 - 16) 10 BUN (7 - 17 mg/dL) 74 H Creatinine (0.5 - 1.0 mg/dL) 2.1 H Estimated GFR (>60 ml/min) 22 L Glucose (65 - 99 mg/dL) 185 H Calcium (8.4 - 10.2 mg/dL) 7.3 L Phosphorus (2.5 - 4.5 mg/dL) 4.6 H Magnesium (1.6 - 2.3 mg/dL) 2.0 Total Bilirubin (0.2 - 1.3 mg/dL) 0.2 AST (14 - 36 U/L) 11 L ALT (9 - 52 U/L) 44 Troponin I (< 0.11 ng/ml) 0.36 *H Albumin (3.5 - 5.0 g/dL) 1.8 L Free T4 (0.85 - 1.93 ng/dL) 0.86 Total T3 (0.97 - 1.69 ng/mL) 0.51 L Coagulation PT (9.4 - 12.5 SEC) 10.2 INR (0.90 - 1.19) 0.97 APTT (25 - 37 SEC) 29 Fibrinogen Activity (200 - 393 MG/DL) 244 D-Dimer High Sensitivty (0 - 243 ng/ml) 1152 H Hematology CBC w Diff NO MAN DIFF REQ WBC (4.8 - 10.8 /CUMM) 4.8 RBC (4.20 - 5.40 /CUMM) 2.71 L Hgb (12.0 - 16.0 G/DL) 8.0 L Hct (37 - 47 %) 24.9 L MCV (81.0 - 99.0 FL) 91.6 MCH (27.0 - 31.0 PG) 29.4 RDW (11.5 - 14.5 %) 21.3 H Plt Count (130 - 400 /CUMM) 24 *L MPV (7.4 - 10.4 FL) 10.4 Gran % (42.2 - 75.2 %) 91.8 H Lymphocytes % (20.5 - 51.1 %) 4.3 L Monocytes % (1.7 - 9.3 %) 3.9 Eosinophils % (0 - 5 %) 0 Basophils % (0.0 - 2.0 %) 0 Absolute Granulocytes (1.4 - 6.5 /CUMM) 4.4 Absolute Lymphocytes (1.2 - 3.4 /CUMM) 0.2 L Absolute Monocytes (0.10 - 0.60 /CUMM) 0.2 Absolute Eosinophils (0.0 - 0.7 /CUMM) 0 Absolute Basophils (0.0 - 0.2 /CUMM) 0 PUBS MCHC (33.0 - 37.0 G/DL) 32.1 L Miscellaneous Phlebotomy Draw Site LEFT RADIAL Toxicology Random Vancomycin (ug/ml) 17.8 05/21 05/21 05/21 1700 1200 1131 Chemistry Potassium (3.5 - 5.1 mmol/L) 4.7 Cancelled Troponin I (< 0.11 ng/ml) 0.41 *H Urines Urine Osmolality Cancelled 05/21 05/21 1100 1100 Urines Urine Color (YEL,AMB,STR) YEL Urine Clarity (CLEAR) HAZY H Urine pH (5.0 - 8.0) 5.5 Ur Specific [place] (1.001 - 1.035) >= 1.030 Urine Protein (NEG,<30 MG/DL) TRACE H Urine Ketones (NEG) TRACE H Urine Nitrite (NEG) NEG Urine Bilirubin (NEG) NEG@ICTO Urine Urobilinogen (0.1 - 1.0 EU/dl) 0.2 Ur Leukocyte Esterase (NEG) NEG Ur Microscopic SEDIMENT EXAMINED Urine RBC (0 - 5 /HPF) 25-50 H Urine WBC (0 - 2 /HPF) 1-3 H Ur Epithelial Cells (NONE,FEW) RARE Urine Bacteria (NEG/NONE) RARE H Micro UA Comment BUDDING YEAST H Urine Hemoglobin (NEG) LARGE H Urine Osmolality (300 - 1000 MOSM/KG) 472 Ur Random Creatinine (mg/dL) 125.6 Ur Random Sodium (30 - 90 mmol/L) 6 L Ur Random Potassium (mmol/L) 92.4 Fraction Sodium Excret (<1% %) 0.1 Urine Glucose (N MG/DL) NEG Last 24 Hours of [place] Results: Sputum culture May 20 positive for Staph aureus sensitive to Oxacillin Blood cultures May 18 and blood cultures May 19 negative Recent Imaging Studies: Chest x-ray May 22 bibasilar densities unchanged Assessment/Plan Impression: Continues to improve with decreasing oxygen requirements, temperatures normal ( on steroids) and with her white blood cell count continuing to decrease on Vancomycin, Day 4 of treatment for MSSA pneumonia. Her renal failure, likely secondary to sepsis or contrast, is improving. Her thrombocytopenia persists and, with a further decrease in her H&H, she may need further evaluation for a a source of bleeding. She has right upper extremity edema and, with the right IJ in place, a DVT may need to be ruled out. Suggestion: 1. Doppler of the right upper extremity 2. Consider CT of the abdomen and pelvis to rule out a retroperitoneal bleed 3. Further management of her ITP per Hematology 4. Begin Oxacillin 2 grams IV every 4 hours
--- NOTE | 2017-05-22 11:06 | PN- Nephrology ---
Assessment/Plan Assessment: GARCÍA - 2/2 ATN in the setting of septic shock and contrast induced nephropathy. Improved. Doubt pulmonary-renal syndrome - especially since it is improving with supportive care and time. 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 Doubt concurrent TMA as the cause of her GARCÍA. Stage III CKD - Known risk factors of DM, HTN as well as CAD. CHF - Elevated RV pressures on TTE - no longer in shock - need to be cautious about IVF administration. Anion gap metabolic acidosis - Normal lactate and no ketones on UA ( hyperglycemic). Likely 2/2 renal failure. Improved. Suggestion: -Cont supportive care as you are -Vanc by level -Monitor digoxin levels - hold for now -Nonurgent renal US -d/c sodium bicarb tomorrow if renal function stable/improving Will see PRN Please call [phone] with ?'s Subjective Subjective: Pt remains intubated Remains off pressors SCr down to 2.1; 395cc UOP Objective Vital Signs and I&Os Vital Signs Date Time Temp Pulse Resp B/P B/P Pulse O2 O2 Flow FiO2 Mean Ox Delivery Rate 05/22 0822 35 05/22 0800 97 Ventilator 35% 05/22 0800 97.6 88 14 140/64 98 Ventilator 35% 05/22 0756 120 112/67 05/22 0609 35 05/22 0400 95 Ventilator 35% 05/22 0318 35 05/22 0150 98 102/52 05/22 0034 35 05/22 0000 95 Ventilator 35% 05/21 2300 98.7 124 13 120/70 95 Ventilator 35% 05/21 2235 35 05/21 2000 96 Ventilator 40% 05/21 1940 100 103/57 05/21 1915 40 05/21 1620 40 05/21 1600 98.5 110 16 110/50 96 Ventilator 40% 05/21 1600 96 Ventilator 40% 05/21 1428 40 05/21 1423 118 97/63 05/21 1200 96 Ventilator 40% 05/21 1130 40 Intake & Output 05/22 1600 05/22 0400 05/21 1600 05/21 0400 05/20 1600 05/20 0400 Intake Total 1129 1263 1361 1166 2131 1554 Output Total 395 331 305 60 310 290 Balance 068 874 1919 1106 1821 1264 Intake, IV 1129 1173 1361 1166 2131 1554 Intake, Oral 0 0 0 0 0 Intake, Tube 90 Irrigant Number 0 0 0 Bowel Movements Output, 0 0 Gastric Drainage Output, Stool 0 Output, Urine 395 331 305 60 310 290 Patient 266 lb 255 lb 255 lb Weight Weight Bed scale Bed scale Bed scale Measurement Method Physical Exam: Gen - ill appearing, awake HEENT - supple CV - RRR, no m/r/g Chest - clear mechanical breath sounds, no m/r/g Abd - soft, NTND, BS+ Ext - warm, no edema Skin - excoriations on legs, no jaundice Neuro - more responsive but remains intubated Current Medications: Current Medications Sig/Ric Start time Last Medication Dose Route Stop Time Status Admin Acetaminophen 650 MG Q6P PRN 05/19 0300 AC PO Acetaminophen 1,000 MG Q6P PRN 05/19 0300 AC IV Amiodarone HCl/ 360 MG Q6H 05/21 1100 05/22 Dextrose IV 0756 N/A 1 UNIT Amiodarone HCl/ 360 MG Q12H 05/20 1045 NH 05/21 Dextrose IV 0528 N/A 1 UNIT Hydrocortisone 100 MG Q8 05/19 1639 05/22 Sodium Succinate IV 0516 Insulin Aspart 0 Q4 05/21 1800 DC SC Insulin Aspart 0 Q4H 05/21 1800 05/22 MT 1002 Insulin Aspart 0 Q4 05/21 1615 DC SC Insulin Aspart 0 TIDAC 05/21 1600 DC SC Insulin Aspart 5 UNITS ONCE ONE 05/21 1330 NH 05/21 MT 05/21 1331 1416 Insulin Detemir 10 UNITS BID 05/21 1530 05/22 MT 0959 Insulin Human Regular 15 UNITS ONCE ONE 05/21 1230 NH 05/21 MT 05/21 1231 1228 Insulin Human Regular 0 Q6 05/21 0600 NH 05/21 MT 0530 Pantoprazole Sodium 40 MG DAILY 05/20 0030 05/22 IV 0953 Propofol 1,000 MG Q24H 05/20 0615 05/21 N/A 1 UNIT IV 1937 Sodium Bicarbonate 1,300 MG TID 05/21 1600 05/22 PO 0952 Sodium Chloride 1,000 ML Q10H 05/21 1830 05/22 IV 0353 Sodium Chloride 1,000 ML Q10H 05/19 1915 NH 05/21 IV 05/21 1113 0533 Vancomycin HCl 1,000 MG ONCE ONE 05/21 1215 DC 05/21 Sodium Chloride 250 ML IV 05/21 6220 8528 Results Pertinent Lab Results: Laboratory Tests 05/22 05/22 05/22 0455 0347 0004 Blood Gas pH (7.35 - 7.45 PH) 7.51 H pCO2 (35 - 45 TORR) 28 L pO2 (80 - 100 TORR) 92 HCO3 (21 - 28 MEQ/L) 22 ABG O2 Sat (Measured) (>96.0 %) 96.0 P-50 (Temp Corrected) Y Carboxyhemoglobin (1.5 - 5.0 %) 0.3 L O2 Concentration % 35% Temperature (97.0 - 100.0 FARH) 98.4 Respiration Rate (BPM) 14 O2 Delivery Method ESPRIT Vent Mode AC Expiratory Pressure (CMH2O/P) 5 Tidal Volume (CC) 550 Chemistry Sodium (137 - 145 mmol/L) 142 Potassium (3.5 - 5.1 mmol/L) 3.9 Chloride (98 - 107 mmol/L) 107 Carbon Dioxide (22 - 30 mmol/L) 25 Anion Gap (5 - 16) 10 BUN (7 - 17 mg/dL) 74 H Creatinine (0.5 - 1.0 mg/dL) 2.1 H Estimated GFR (>60 ml/min) 22 L Glucose (65 - 99 mg/dL) 185 H Calcium (8.4 - 10.2 mg/dL) 7.3 L Phosphorus (2.5 - 4.5 mg/dL) 4.6 H Magnesium (1.6 - 2.3 mg/dL) 2.0 Total Bilirubin (0.2 - 1.3 mg/dL) 0.2 AST (14 - 36 U/L) 11 L ALT (9 - 52 U/L) 44 Troponin I (< 0.11 ng/ml) 0.36 *H Albumin (3.5 - 5.0 g/dL) 1.8 L Free T4 (0.85 - 1.93 ng/dL) 0.86 Total T3 (0.97 - 1.69 ng/mL) 0.51 L Coagulation PT (9.4 - 12.5 SEC) 10.2 INR (0.90 - 1.19) 0.97 APTT (25 - 37 SEC) 29 Fibrinogen Activity (200 - 393 MG/DL) 244 D-Dimer High Sensitivty (0 - 243 ng/ml) 1152 H Hematology CBC w Diff NO MAN DIFF REQ WBC (4.8 - 10.8 /CUMM) 4.8 RBC (4.20 - 5.40 /CUMM) 2.71 L Hgb (12.0 - 16.0 G/DL) 8.0 L Hct (37 - 47 %) 24.9 L MCV (81.0 - 99.0 FL) 91.6 MCH (27.0 - 31.0 PG) 29.4 RDW (11.5 - 14.5 %) 21.3 H Plt Count (130 - 400 /CUMM) 24 *L MPV (7.4 - 10.4 FL) 10.4 Gran % (42.2 - 75.2 %) 91.8 H Lymphocytes % (20.5 - 51.1 %) 4.3 L Monocytes % (1.7 - 9.3 %) 3.9 Eosinophils % (0 - 5 %) 0 Basophils % (0.0 - 2.0 %) 0 Absolute Granulocytes (1.4 - 6.5 /CUMM) 4.4 Absolute Lymphocytes (1.2 - 3.4 /CUMM) 0.2 L Absolute Monocytes (0.10 - 0.60 /CUMM) 0.2 Absolute Eosinophils (0.0 - 0.7 /CUMM) 0 Absolute Basophils (0.0 - 0.2 /CUMM) 0 PUBS MCHC (33.0 - 37.0 G/DL) 32.1 L Miscellaneous Phlebotomy Draw Site LEFT RADIAL Toxicology Random Vancomycin (ug/ml) 17.8 05/21 05/21 05/21 1700 1200 1131 Chemistry Potassium (3.5 - 5.1 mmol/L) 4.7 Cancelled Troponin I (< 0.11 ng/ml) 0.41 *H Urines Urine Osmolality Cancelled 05/21 05/21 05/21 1100 1100 0945 Chemistry Potassium (3.5 - 5.1 mmol/L) 5.3 H Troponin I (< 0.11 ng/ml) 0.37 *H Urines Urine Color (YEL,AMB,STR) YEL Urine Clarity (CLEAR) HAZY H Urine pH (5.0 - 8.0) 5.5 Ur Specific [place] (1.001 - 1.035) >= 1.030 Urine Protein (NEG,<30 MG/DL) TRACE H Urine Ketones (NEG) TRACE H Urine Nitrite (NEG) NEG Urine Bilirubin (NEG) NEG@ICTO Urine Urobilinogen (0.1 - 1.0 EU/dl) 0.2 Ur Leukocyte Esterase (NEG) NEG Ur Microscopic SEDIMENT EXAMINED Urine RBC (0 - 5 /HPF) 25-50 H Urine WBC (0 - 2 /HPF) 1-3 H Ur Epithelial Cells (NONE,FEW) RARE Urine Bacteria (NEG/NONE) RARE H Micro UA Comment BUDDING YEAST H Urine Hemoglobin (NEG) LARGE H Urine Osmolality (300 - 1000 MOSM/KG) 472 Ur Random Creatinine (mg/dL) 125.6 Ur Random Sodium (30 - 90 mmol/L) 6 L Ur Random Potassium (mmol/L) 92.4 Fraction Sodium Excret (<1% %) 0.1 Urine Glucose (N MG/DL) NEG 05/21 05/21 0900 0445 Blood Gas pH (7.35 - 7.45 PH) 7.39 pCO2 (35 - 45 TORR) 27 L pO2 (80 - 100 TORR) 95 HCO3 (21 - 28 MEQ/L) 16 L ABG O2 Sat (Measured) (>96.0 %) 96.0 P-50 (Temp Corrected) Y Carboxyhemoglobin (1.5 - 5.0 %) 0.3 L O2 Concentration % 50% Temperature (97.0 - 100.0 FARH) 98.4 Respiration Rate (BPM) 14 O2 Delivery Method ESPRIT Vent Mode AC Expiratory Pressure (CMH2O/P) 5 Tidal Volume (CC) 550 Chemistry Potassium Cancelled Miscellaneous Phlebotomy Draw Site LEFT RADIAL 05/21 05/20 05/20 0306 2051 1500 Chemistry Sodium (137 - 145 mmol/L) 142 Potassium (3.5 - 5.1 mmol/L) 5.9 H Chloride (98 - 107 mmol/L) 104 Carbon Dioxide (22 - 30 mmol/L) 18 L Anion Gap (5 - 16) 20 H BUN (7 - 17 mg/dL) 73 H Creatinine (0.5 - 1.0 mg/dL) 2.5 H Estimated GFR (>60 ml/min) 18 L Glucose (65 - 99 mg/dL) 331 H 286 H Calcium (8.4 - 10.2 mg/dL) 7.6 L Phosphorus (2.5 - 4.5 mg/dL) 7.3 H Magnesium (1.6 - 2.3 mg/dL) 2.0 Total Bilirubin (0.2 - 1.3 mg/dL) 0.5 AST (14 - 36 U/L) 14 ALT (9 - 52 U/L) 41 Troponin I (< 0.11 ng/ml) 0.36 *H 0.34 *H 0.27 *H Albumin (3.5 - 5.0 g/dL) 2.0 L TSH (0.270 - 4.200 uIU/mL) 0.208 L Coagulation PT (9.4 - 12.5 SEC) 10.2 INR (0.90 - 1.19) 0.97 APTT (25 - 37 SEC) 29 Fibrinogen Activity (200 - 393 MG/DL) 388 Hematology CBC w Diff MAN DIFF ORDERED WBC (4.8 - 10.8 /CUMM) 10.4 RBC (4.20 - 5.40 /CUMM) 3.18 L Hgb (12.0 - 16.0 G/DL) 9.5 L Hct (37 - 47 %) 29.7 L MCV (81.0 - 99.0 FL) 93.4 MCH (27.0 - 31.0 PG) 29.8 RDW (11.5 - 14.5 %) 21.4 H Plt Count (130 - 400 /CUMM) 27 *L MPV (7.4 - 10.4 FL) 10.7 H Gran % (42.2 - 75.2 %) 95.5 H Lymphocytes % (20.5 - 51.1 %) 2.6 L Monocytes % (1.7 - 9.3 %) 1.9 Eosinophils % (0 - 5 %) 0 Basophils % (0.0 - 2.0 %) 0 Absolute Granulocytes (1.4 - 6.5 /CUMM) 10.0 H Segmented Neutrophils (42.2 - 75.2 %) 98 H Absolute Lymphocytes (1.2 - 3.4 /CUMM) 0.3 L Lymphocytes (20.5 - 51.1 %) 1 L Monocytes (1.7 - 9.3 %) 1 L Absolute Monocytes (0.10 - 0.60 /CUMM) 0.2 Absolute Eosinophils (0.0 - 0.7 /CUMM) 0 Absolute Basophils (0.0 - 0.2 /CUMM) 0 Platelet Estimate (ADEQUATE) DECREASED Polychromasia 1+ Hypochromic-Microcytic 1+ Poikilocytosis 1+ Ovalocytes 1+ Alberto Cells FEW PUBS MCHC (33.0 - 37.0 G/DL) 31.9 L Other Body Source Fld Total RBCs Counted (%) 100 Toxicology Random Vancomycin (ug/ml) 14.3 Digoxin (0.8 - 2.0 ng/mL) 2.6 *H 05/20 05/20 05/20 05/20 0950 0830 0800 0445 Blood Gas pH (7.35 - 7.45 PH) 7.38 7.42 pCO2 (35 - 45 TORR) 32 L 38 pO2 (80 - 100 TORR) 153 H 40 *L HCO3 (21 - 28 MEQ/L) 18 L 24 ABG O2 Sat (Measured) (>96.0 %) 98.0 66.0 L P-50 (Temp Corrected) Y Carboxyhemoglobin (1.5 - 5.0 %) 0.3 L 0.3 L O2 Concentration % 80 60% Temperature (97.0 - 100.0 FARH) 98.8 Respiration Rate (BPM) 14 14 O2 Delivery Method VENT ESPRIT Vent Mode AC AC Expiratory Pressure (CMH2O/P) 5 5 Tidal Volume (CC) 550 550 Chemistry Troponin I (< 0.11 ng/ml) 0.25 *H Cancelled Miscellaneous Phlebotomy Draw Site LEFT RADIAL RIGHT BRACHIAL 05/20 05/20 05/19 0300 0300 2232 Chemistry Sodium (137 - 145 mmol/L) 142 Potassium (3.5 - 5.1 mmol/L) 5.1 Chloride (98 - 107 mmol/L) 104 Carbon Dioxide (22 - 30 mmol/L) 24 Anion Gap (5 - 16) 14 BUN (7 - 17 mg/dL) 56 H Creatinine (0.5 - 1.0 mg/dL) 1.5 H Estimated GFR (>60 ml/min) 33 L Glucose (65 - 99 mg/dL) 122 H Lactic Acid Cancelled Calcium (8.4 - 10.2 mg/dL) 7.9 L Phosphorus (2.5 - 4.5 mg/dL) 5.1 H Magnesium (1.6 - 2.3 mg/dL) 2.0 Total Bilirubin (0.2 - 1.3 mg/dL) 0.7 AST (14 - 36 U/L) 20 ALT (9 - 52 U/L) 41 Troponin I (< 0.11 ng/ml) 0.23 *H Albumin (3.5 - 5.0 g/dL) 2.2 L Hematology CBC w Diff MAN DIFF ORDERED WBC (4.8 - 10.8 /CUMM) 15.4 H RBC (4.20 - 5.40 /CUMM) 3.65 L Hgb (12.0 - 16.0 G/DL) 10.9 L Hct (37 - 47 %) 33.5 L MCV (81.0 - 99.0 FL) 92.0 MCH (27.0 - 31.0 PG) 29.9 RDW (11.5 - 14.5 %) 22.0 H Plt Count (130 - 400 /CUMM) 25 *L MPV (7.4 - 10.4 FL) 9.8 Gran % (42.2 - 75.2 %) 95.0 H Lymphocytes % (20.5 - 51.1 %) 2.8 L Monocytes % (1.7 - 9.3 %) 2.1 Eosinophils % (0 - 5 %) 0 Basophils % (0.0 - 2.0 %) 0.1 Absolute Granulocytes (1.4 - 6.5 /CUMM) 14.6 H Segmented Neutrophils (42.2 - 75.2 %) 95 H Absolute Lymphocytes (1.2 - 3.4 /CUMM) 0.4 L Lymphocytes (20.5 - 51.1 %) 5 L Absolute Monocytes (0.10 - 0.60 /CUMM) 0.3 Absolute Eosinophils (0.0 - 0.7 /CUMM) 0 Absolute Basophils (0.0 - 0.2 /CUMM) 0 Platelet Estimate (ADEQUATE) VERIFIED BY SMEAR Polychromasia 1+ Poikilocytosis 1+ Anisocytosis 1+ Alberto Cells 1+ Elliptocytes 1+ PUBS MCHC (33.0 - 37.0 G/DL) 32.5 L 05/19 Blood Gas pH (7.35 - 7.45 PH) 7.59 H pCO2 (35 - 45 TORR) 25 L pO2 (80 - 100 TORR) 93 HCO3 (21 - 28 MEQ/L) 23 ABG O2 Sat (Measured) (>96.0 %) 97.0 P-50 (Temp Corrected) N Carboxyhemoglobin (1.5 - 5.0 %) 0.5 L O2 Concentration % 60% Temperature (97.0 - 100.0 FARH) 98.9 Respiration Rate (BPM) 20 O2 Delivery Method ESPRIT VENT Vent Mode AC Expiratory Pressure (CMH2O/P) 5 Tidal Volume (CC) 550 Chemistry Lactic Acid (0.7 - 2.1 mmol/L) 1.4 Troponin I (< 0.11 ng/ml) 0.19 *H Miscellaneous Phlebotomy Draw Site RIGHT BRACHIAL 05/19 05/19 1750 1620 Blood Gas pH (7.35 - 7.45 PH) 7.37 pCO2 (35 - 45 TORR) 49 H pO2 (80 - 100 TORR) 83 HCO3 (21 - 28 MEQ/L) 28 ABG O2 Sat (Measured) (>96.0 %) 94.0 L P-50 (Temp Corrected) N Carboxyhemoglobin (1.5 - 5.0 %) 0.7 L O2 Concentration % 6L Temperature (97.0 - 100.0 FARH) 99.0 O2 Delivery Method NC Chemistry Sodium (137 - 145 mmol/L) 143 Potassium (3.5 - 5.1 mmol/L) 4.8 Chloride (98 - 107 mmol/L) 102 Carbon Dioxide (22 - 30 mmol/L) 31 H Anion Gap (5 - 16) 11 BUN (7 - 17 mg/dL) 55 H Creatinine (0.5 - 1.0 mg/dL) 1.5 H Estimated GFR (>60 ml/min) 33 L Glucose (65 - 99 mg/dL) 93 Calcium (8.4 - 10.2 mg/dL) 7.8 L Phosphorus (2.5 - 4.5 mg/dL) 4.6 H Magnesium (1.6 - 2.3 mg/dL) 2.0 Total Bilirubin (0.2 - 1.3 mg/dL) 0.5 AST (14 - 36 U/L) 21 ALT (9 - 52 U/L) 37 Albumin (3.5 - 5.0 g/dL) 2.2 L Hematology CBC w Diff NO MAN DIFF REQ WBC (4.8 - 10.8 /CUMM) 18.5 H RBC (4.20 - 5.40 /CUMM) 3.64 L Hgb (12.0 - 16.0 G/DL) 10.9 L Hct (37 - 47 %) 34.0 L MCV (81.0 - 99.0 FL) 93.3 MCH (27.0 - 31.0 PG) 29.8 RDW (11.5 - 14.5 %) 21.5 H Plt Count (130 - 400 /CUMM) 31 L MPV (7.4 - 10.4 FL) 10.0 Gran % (42.2 - 75.2 %) 96.2 H Lymphocytes % (20.5 - 51.1 %) 2.2 L Monocytes % (1.7 - 9.3 %) 1.6 L Eosinophils % (0 - 5 %) 0 Basophils % (0.0 - 2.0 %) 0 Absolute Granulocytes (1.4 - 6.5 /CUMM) 17.8 H Absolute Lymphocytes (1.2 - 3.4 /CUMM) 0.4 L Absolute Monocytes (0.10 - 0.60 /CUMM) 0.3 Absolute Eosinophils (0.0 - 0.7 /CUMM) 0 Absolute Basophils (0.0 - 0.2 /CUMM) 0 PUBS MCHC (33.0 - 37.0 G/DL) 32.0 L Miscellaneous Phlebotomy Draw Site RIGHT BRACHIAL 05/19 05/19 1430 1430 Chemistry Sodium (137 - 145 mmol/L) 143 Potassium (3.5 - 5.1 mmol/L) 4.7 Chloride (98 - 107 mmol/L) 101 Carbon Dioxide (22 - 30 mmol/L) 32 H Anion Gap (5 - 16) 10 BUN (7 - 17 mg/dL) 52 H Creatinine (0.5 - 1.0 mg/dL) 1.6 H Estimated GFR (>60 ml/min) 31 L BUN/Creatinine Ratio (7 - 25 %) 32.5 H Lactic Acid (0.7 - 2.1 mmol/L) 1.2 Troponin I (< 0.11 ng/ml) Cancelled 0.17 *H Cortisol PM Sample (1.7 - 14.1) 16.6 H Hematology CBC w Diff NO MAN DIFF REQ WBC (4.8 - 10.8 /CUMM) 15.0 H RBC (4.20 - 5.40 /CUMM) 3.66 L Hgb (12.0 - 16.0 G/DL) 10.9 L Hct (37 - 47 %) 33.6 L MCV (81.0 - 99.0 FL) 91.8 MCH (27.0 - 31.0 PG) 29.7 RDW (11.5 - 14.5 %) 21.8 H Plt Count (130 - 400 /CUMM) 21 *L MPV (7.4 - 10.4 FL) 9.3 Gran % (42.2 - 75.2 %) 95.1 H Lymphocytes % (20.5 - 51.1 %) 2.1 L Monocytes % (1.7 - 9.3 %) 2.7 Eosinophils % (0 - 5 %) 0 Basophils % (0.0 - 2.0 %) 0.1 Absolute Granulocytes (1.4 - 6.5 /CUMM) 14.2 H Absolute Lymphocytes (1.2 - 3.4 /CUMM) 0.3 L Absolute Monocytes (0.10 - 0.60 /CUMM) 0.4 Absolute Eosinophils (0.0 - 0.7 /CUMM) 0 Absolute Basophils (0.0 - 0.2 /CUMM) 0 PUBS MCHC (33.0 - 37.0 G/DL) 32.3 L 05/19 1425 Blood Gas pH (7.35 - 7.45 PH) 7.38 pCO2 (35 - 45 TORR) 48 H pO2 (80 - 100 TORR) 53 L HCO3 (21 - 28 MEQ/L) 28 ABG O2 Sat (Measured) (>96.0 %) 84.0 L P-50 (Temp Corrected) N Carboxyhemoglobin (1.5 - 5.0 %) 1.5 O2 Concentration % 6L Temperature (97.0 - 100.0 FARH) 99.8 O2 Delivery Method N/C Miscellaneous Phlebotomy Draw Site LEFT BRACH Imaging/Other Studies: Chest X-ray IMPRESSION: 1. Endotracheal tube tip 5 cm above the krystal. 2. Enteric tube courses into the abdomen with tip not included on this exam. 3. Right jugular central venous line tip in the deep SVC. 4. No interval change in bilateral pleural effusions, left greater than right, with associated bibasilar atelectasis or consolidation.
--- NOTE | 2017-05-22 12:30 | ULTRASOUND REPORT ---
EXAMINATION: US TRIPLEX OF UPPER EXTREMITIES, BILATERAL CLINICAL INFORMATION: Bilateral upper extremity swelling. COMPARISON: None. TECHNIQUE: Color-flow triplex imaging with spectral analysis and compression Doppler were performed on the bilateral upper extremities. Imaging is limited due to portable technique in the ICU, patient immobility, large body habitus and overlapping bandages and support lines. FINDINGS: The visualized bilateral internal jugular, subclavian, axillary, brachial, basilic and cephalic veins show normal flow and compressibility. No deep venous thrombosis is seen. IMPRESSION: No ultrasound evidence of deep venous thrombosis involving the bilateral upper extremities. Examination limited as above.
--- NOTE | 2017-05-22 12:57 | ULTRASOUND REPORT ---
EXAMINATION: COLOR-FLOW DUPLEX IMAGING OF THE BILATERAL UPPER EXTREMITY ARTERIAL SYSTEM. VELOCITY MEASUREMENTS THROUGHOUT THE ARTERIES WITH PERIPHERAL ARTERIAL TESTING. CLINICAL INFORMATION: This is an 86-year-old female with a swollen right arm. Immobility. On ventilator. Bandages and lines present. Possible arterial thrombus. Interventional Radiologist: Stu Brewer M.D., F.S.I.R., F.A.C.R. RIGHT UPPER RUNOFF VELOCITIES: The right proximal subclavian artery velocity is 82 cm/s, triphasic, without stenosis or obstruction. The right mid subclavian artery velocity is 81 cm/s, triphasic, without stenosis or obstruction. The right distal subclavian artery velocity is 75 cm/s, triphasic, without stenosis or obstruction. The right axillary artery velocity is 86 cm/s, triphasic, without stenosis or obstruction. The right proximal brachial artery velocity is 87 cm/s, triphasic, without stenosis or obstruction. The right mid brachial artery velocity is 78 cm/s, triphasic, without stenosis or obstruction. The right distal brachial artery velocity is 89 cm/s, triphasic, without stenosis or obstruction. LEFT UPPER RUNOFF VELOCITIES: The left proximal subclavian artery velocity is 101 cm/s, triphasic, without stenosis or obstruction. The left mid subclavian artery velocity is 88 cm/s, triphasic, without stenosis or obstruction. The left distal subclavian artery velocity is 80 cm/s, triphasic, without stenosis or obstruction. The left axillary artery velocity is 85 cm/s, triphasic, without stenosis or obstruction. The left proximal brachial artery velocity is 83 cm/s, triphasic, without stenosis or obstruction. The left mid brachial artery is not visualized. There is bandage is in the area which prevent visualization. The left distal brachial artery is not visualized. There is bandage is in the area which prevent visualization. IMPRESSION: 1. Normal peripheral arterial testing without evidence of stenosis or occlusion. However, the study is significantly limited due to the presence of the bandages and lines in the left mid arm and distal.
[2017-05-22 13:53] LABS: ABSOLUTE BASOPHIL COUNT 0 /CUMM (0.0-0.2); ABSOLUTE EOSINOPHIL COUNT 0 /CUMM (0.0-0.7); ABSOLUTE LYMPH COUNT 0.2 /CUMM (1.2-3.4); ABSOLUTE MONOCYTE COUNT 0.3 /CUMM (0.10-0.60); BASOPHIL % 0 % (0.0-2.0); EOSINOPHIL % 0 % (0-5); MEAN PLATELET VOLUME 8.8 FL (7.4-10.4)
[2017-05-22 14:15] LABS: ABSOLUTE GRANULOCYTE CT 6.8 /CUMM (1.4-6.5); GRANULOCYTE % 93.6 % (42.2-75.2); HEMATOCRIT 25.4 % (37-47); MEAN CORPUSCULAR HGB 29.5 PG (27.0-31.0); MEAN CORPUSCULAR HGB CONC 32.2 G/DL (33.0-37.0); MEAN CORPUSCULAR VOLUME 91.9 FL (81.0-99.0); RBC DISTRIBUTION WIDTH 21.4 % (11.5-14.5); RED BLOOD CELL CT 2.76 /CUMM (4.20-5.40)
[2017-05-22 14:25] LABS: WHITE BLOOD CELL COUNT 7.3 /CUMM (4.8-10.8)
[2017-05-22 14:26] LABS: PLATELET COUNT 43 /CUMM (130-400)
[2017-05-22 16:00] VITALS: BP 144/84
[2017-05-22 22:37] LABS: ABSOLUTE BASOPHIL COUNT 0 /CUMM (0.0-0.2); ABSOLUTE EOSINOPHIL COUNT 0 /CUMM (0.0-0.7); ABSOLUTE GRANULOCYTE CT 5.1 /CUMM (1.4-6.5); ABSOLUTE LYMPH COUNT 0.2 /CUMM (1.2-3.4); ABSOLUTE MONOCYTE COUNT 0.2 /CUMM (0.10-0.60); BASOPHIL % 0.1 % (0.0-2.0); EOSINOPHIL % 0.4 % (0-5); HEMATOCRIT 24.2 % (37-47); MEAN CORPUSCULAR HGB 29.2 PG (27.0-31.0); MEAN CORPUSCULAR HGB CONC 31.8 G/DL (33.0-37.0); MEAN CORPUSCULAR VOLUME 91.7 FL (81.0-99.0); RED BLOOD CELL CT 2.64 /CUMM (4.20-5.40); WHITE BLOOD CELL COUNT 5.6 /CUMM (4.8-10.8)
[2017-05-22 22:39] LABS: GRANULOCYTE % 92.3 % (42.2-75.2); PLATELET COUNT 43 /CUMM (130-400)
[2017-05-23] VITALS: BP 114/60
[2017-05-23 04:58] LABS: ABSOLUTE BASOPHIL COUNT 0 /CUMM (0.0-0.2); ABSOLUTE EOSINOPHIL COUNT 0 /CUMM (0.0-0.7); ABSOLUTE GRANULOCYTE CT 3.8 /CUMM (1.4-6.5); ABSOLUTE LYMPH COUNT 0.2 /CUMM (1.2-3.4); ABSOLUTE MONOCYTE COUNT 0.2 /CUMM (0.10-0.60); BASOPHIL % 0.1 % (0.0-2.0); EOSINOPHIL % 0.1 % (0-5); GRANULOCYTE % 92.1 % (42.2-75.2); HEMATOCRIT 23.5 % (37-47); MEAN CORPUSCULAR HGB 29.8 PG (27.0-31.0); MEAN CORPUSCULAR HGB CONC 32.6 G/DL (33.0-37.0); MEAN CORPUSCULAR VOLUME 91.6 FL (81.0-99.0); MEAN PLATELET VOLUME 9.1 FL (7.4-10.4); PLATELET COUNT 36 /CUMM (130-400); RBC DISTRIBUTION WIDTH 21.7 % (11.5-14.5); RED BLOOD CELL CT 2.57 /CUMM (4.20-5.40); WHITE BLOOD CELL COUNT 4.1 /CUMM (4.8-10.8)
[2017-05-23 05:03] LABS: PT 10.8 SEC (9.4-12.5); PTT 28 SEC (25-37)
--- NOTE | 2017-05-23 07:08 | PN- Resident CRCU ---
Jaron RAMOS,[facility] 05/23/17 0708: Subjective HPI/CRCU Issues: Atrial Fibrilliation Hypotension Acute Hypoxic Respiratory Failure 24 Hour Events: No issues overnight. Heart rate and blood pressure had been well controlled on Amiodarone drip. An extubation trial was attempted but the patient was unable to weaned off. Will reattempt tomorrow. Objective Vital Signs & I&O Last 8 Hrs of Vitals and I&O: . Exam General Appearance: awake, sedated, intubated Head: atraumatic, normal appearance Neck: normal inspection, supple Respiratory: normal breath sounds, chest non-tender, decreased at lung bases. Cardiovascular: irregularly irregular Gastrointestinal: soft, non-tender Extremities: trace edema, stasis skin changes on lower extremities. Skin: stasis skin changes of lower extremities. Skin Temp/Moisture Exam: Warm/Dry Sepsis Skin Exam (color): Normal for Ethnicity Current Medications: Current Medications Sig/Ric Start time Last Medication Dose Route Stop Time Status Admin Acetaminophen 650 MG Q6P PRN 05/19 0300 AC PO Acetaminophen 1,000 MG Q6P PRN 05/19 0300 AC IV Amiodarone HCl/ 360 MG Q6H 05/21 1100 AC 05/23 Dextrose IV 0725 N/A 1 UNIT Dextrose/Sodium 1,000 ML Q10H 05/22 1515 DC 05/23 Chloride IV 0534 Docusate Sodium 100 MG DAILY AC 05/23 0820 AC 05/23 PO 0940 Furosemide 20 MG 1115 05/23 1115 DC 05/23 IV 05/23 1116 1108 Hydrocortisone 100 MG Q8 05/19 1639 AC 05/23 Sodium Succinate IV 1410 Insulin Aspart 0 Q4H 05/21 1800 AC 05/23 SC 1410 Insulin Detemir 10 UNITS BID 05/21 1530 AC 05/23 SC 0945 Metoprolol Tartrate 25 MG BID 05/23 1000 AC 05/23 PO 0940 Oxacillin Sodium 2,000 MG Q4 05/22 1400 AC 05/23 Sodium Chloride 100 ML IV 1411 Pantoprazole Sodium 40 MG DAILY 05/20 0030 AC 05/23 IV 0940 Polyethylene Glycol 17 GM DAILY 05/23 1000 AC 05/23 PO 0941 Potassium Chloride 20 MEQ DAILY 05/23 1000 CAN IV Potassium Chloride 20 MEQ Q13H 05/23 1000 AC 05/23 Dextrose/Sodium 1,000 ML IV 05/24 1159 0854 Chloride Potassium Chloride 60 MEQ ONCE ONE 05/23 0700 DC 05/23 PO 05/23 0701 0812 Propofol 1,000 MG .STK-MED ONE 05/23 0608 DC IV 05/23 0609 Propofol 1,000 MG Q24H 05/20 0615 AC 05/23 N/A 1 UNIT IV 1108 Sodium Chloride 1,000 ML Q10H 05/21 1830 DC 05/22 IV 1326 Impression/Plan Impression/Problem List Impression: 86 year old woman with past medical history of hypertension, hyperlipidemia, [place] s/p PCI with stent, diabetes mellitus, and restless leg syndrome, history of atrial fibrillation with anticoagulation on hold due to severe thrombocytopenia was sent in from extended care facility for hypoxia, leukocytosis and productive cough. She was admitted on telemetry floor and transfered to ICU yesterday after patient desaturated became unresponsive. Assessment and Plan: Acute hypoxic respiratory failure likely secondary to HCAP: * Her white count has normalized and she's been afebrile. Her sputum culture is growing MSSA. * Continue Oxacillin 2g q4 * Currently intubated with FiO2 of 35%. * ID recs appreciated. * A trial of weaning was attempted but patient was unable to maintain a tidal volume. In addition her blood pressure increased and she became tachycardic off propafol. Will attempt to extubate again tomorrow. Atrial Fibrilliation with Hypotension: * Blood pressure much more stable now. Will start metoprolol 25mg BID through NGT. * Digoxin has been discontinued. * Currently on Amiodarone drip at 0.5mg. * If heart rate remains well controlled will transition to oral amiodarone 400mg TID * AC on hold due to thrombocytopenia * Will continue IVF with D5-1/2NS @ 75ml/hr * Levophed was discontinued on 05/20 as blood pressure had been stable. * Echo - Normal left ventricular ejection fraction visually estimated at > 60% . Immune Thrombocytopenia: * Previously responded to oral Prednisone. She was on high dose 150mg/day * Currently on IV Hydrocortisone 100mg q8. Will continue. * Daily CBC * s/p 1 unit transfusion of platelets 05/22. 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 * DIC panel has been negative today. Will follow for another day as fibrinogen level has been decreasing. GARCÍA on CKD: * Cr improving. Currently 1.5 * Was likely contrast induced nephropathy * Will continue IVF * Will give her one dose of IV lasix 20mg for fluid overload. * Nephro recs appreciated. Diabetes Mellitus: * Currently NPO. Her blood glucose has been high likely due to high dose steroids. * Levemir 10mg BID * Insulin SS medium dose. Lower Extremity Skin Changes: * Was evaluated by vascular surgery. Recommend no surgical intervention at this time. History of restless leg syndrome: * Sinemet was recently discontinued * Lyrica on hold currently. DVT Prophylaxis: ALPS Code: Full Problem List: 1. Pneumonia Pain Ratin Tomorrow's Labs & Rationales: CBC, ICU bundle, DIC panel. Plan DVT/Prophylaxis: mechanical Jordi Pyle MD 05/23/17 1243: Attending MD Review Statement Attending Sign Off Attending Cosign Statement: I have: examined this patient, reviewed [employer] EMR data, personally reviewd images, discussd w/resident/PA/AIRPORT OPERATIONS COORDINATOR, discussed mgmt plan w/ida, discussed mgmt plan w/CM, discussed mgmt plan w/pt, agreed w/resident/PA/AIRPORT OPERATIONS COORDINATOR, amended to note. Other Findings: Impression 86 year old woman * resoloved septic shock * a.fib RVR * acute hypoxemic respiratory failure * GARCÍA improved Plan -SBT/CPAP trial -abx per ID -cardiology, ID f/u -f/u hematology recommendations, stress steroids can be tapered per heme -endocrinology appreciated -nephrology consultation appreciated DVT prophylaxis at all times TTS 35 min
--- NOTE | 2017-05-23 07:23 | PN- Cardiology ---
Subjective Subjective: Patient is awake, alert, still intubated No complaints Review of Systems: Non obtainable Objective Vital Signs and I&Os Vital Signs Date Time Temp Pulse Resp B/P B/P Pulse O2 O2 Flow FiO2 Mean Ox Delivery Rate 05/23 0620 30 05/23 0400 96 Ventilator 30% 05/23 0330 30 05/23 0139 30 05/23 0129 81 102/51 05/23 0000 96 Venti Mask 30% 05/23 0000 97.8 76 14 114/60 95 Ventilator 95% 05/22 2236 30 05/22 2006 95 103/63 05/22 2000 96 Ventilator 35% 05/22 1915 30 05/22 1605 30 05/22 1600 95 Ventilator 35% 05/22 1600 97.8 125 16 144/84 96 Ventilator 35% 05/22 1420 35 05/22 1400 98.0 116 16 153/93 05/22 1203 35 05/22 1200 99 Ventilator 35% 05/22 0822 35 05/22 0800 97 Ventilator 35% 05/22 0800 97.6 88 14 140/64 98 Ventilator 35% 05/22 0756 120 112/67 Intake & Output 05/23 0800 05/23 0000 05/22 1600 05/22 0800 05/22 0000 05/21 1600 Intake Total 1092 1019 1626 1129 1263 355 Output Total 451 418 475 395 331 210 Balance 404 749 5780 734 932 145 Intake, Blood 240 Product Intake, IV 1092 1019 1336 1129 1173 355 Intake, Oral 0 0 0 0 Intake, Other 50 Intake, Tube 90 Irrigant Number 0 0 0 Bowel Movements Output, 0 50 Gastric Drainage Output, Stool 0 Output, Urine 451 418 425 395 331 210 Patient 266 lb 266 lb 255 lb Weight Weight Bed scale Measurement Method Physical Exam: HEENT-PERRLA Neck unable to assess JVP, right IJ line intact Lungs-decreased BS at both bases Heart-S1S2 irregular, no murmur Abdomen-soft, not tender, obese, BS+, no organomegaly Extr-bilateral dermatitis, diminished distal pulses, warm acral parts trace bilateral edema Neuro-alert, awake, non focal Vascular-no carotid bruits Current Medications: Current Medications Sig/Ric Start time Last Medication Dose Route Stop Time Status Admin Acetaminophen 650 MG Q6P PRN 05/19 299 AC PO Acetaminophen 1,000 MG Q6P PRN 01/15 0300 AC IV Amiodarone HCl/ 360 MG Q6H 05/21 1100 AC 05/23 Dextrose IV 0129 N/A 1 UNIT Dextrose/Sodium 1,000 ML Q10H 05/22 1515 AC 05/23 Chloride IV 0534 Hydrocortisone 100 MG Q8 05/19 1639 AC 05/23 Sodium Succinate IV 0531 Insulin Aspart 0 Q4H 05/21 1800 AC 05/23 SC 0531 Insulin Detemir 10 UNITS BID 05/21 1530 AC 05/22 SC 2206 Oxacillin Sodium 2,000 MG Q4 05/22 1400 DC Dextrose/Water 100 ML IV Oxacillin Sodium 2,000 MG Q4 05/22 1400 AC 05/23 Sodium Chloride 100 ML IV 0532 Pantoprazole Sodium 40 MG DAILY 05/20 0030 AC 05/22 IV 0953 Potassium Chloride 60 MEQ ONCE ONE 05/23 0700 DC PO 05/23 0701 Propofol 1,000 MG Q24H 05/20 0615 AC 05/23 N/A 1 UNIT IV 0353 Sodium Bicarbonate 1,300 MG TID 05/21 1600 DC 05/22 PO 0952 Sodium Chloride 1,000 ML Q10H 05/21 1830 DC 05/22 IV 1326 Results Last 48 Hrs of Labs/Mics: Laboratory Tests 05/23/17 0600: TSH &T3 &Free T4 Intrp Cancelled 05/23/17 0535: pH 7.50 H, pCO2 28 L, pO2 79 L, HCO3 22, ABG O2 Sat (Measured) 95.0 L, P-50 (Temp Corrected) Y, Carboxyhemoglobin 0.1 L, O2 Concentration % 30%, Temperature 98.0, Respiration Rate 14, O2 Delivery Method ESPRIT, Vent Mode AC, Expiratory Pressure 5, Tidal Volume 500, Phlebotomy Draw Site LEFT RADIAL 05/23/17 0347: Anion Gap 9, Estimated GFR 33 L, Glucose 154 H, Calcium 7.4 L, Phosphorus 3.8 , Magnesium 2.0, Total Bilirubin 0.2, AST 15, ALT 36, Albumin 1.7 L, Free T4 0.82 L, Total T3 0.45 L, TSH &T3 &Free T4 Intrp 0.121 L, PT 10.8, INR 1.03, APTT 28, Fibrinogen Activity 219, D-Dimer High Sensitivty 1609 H, CBC w Diff NO MAN DIFF REQ, RBC 2.57 L, MCV 91.6, MCH 29.8, RDW 21.7 H, MPV 9.1, Gran % 92.1 H, Lymphocytes % 4.0 L, Monocytes % 3.7, Eosinophils % 0.1, Basophils % 0.1, Absolute Granulocytes 3.8, Absolute Lymphocytes 0.2 L, Absolute Monocytes 0.2, Absolute Eosinophils 0, Absolute Basophils 0, PUBS MCHC 32.6 L, Digoxin 1.4 05/22/172057: CBC w Diff NO MAN DIFF REQ, RBC 2.64 L, MCV 91.7, MCH 29.2, RDW 21.0 H, MPV 9.0, Gran % 92.3 H, Lymphocytes % 3.5 L, Monocytes % 3.7, Eosinophils % 0.4, Basophils % 0.1, Absolute Granulocytes 5.1, Absolute Lymphocytes 0.2 L, Absolute Monocytes 0.2, Absolute Eosinophils 0, Absolute Basophils 0, PUBS MCHC 31.8 L 05/22/17 1305: pH 7.49 H, pCO2 31 L, pO2 74 L, HCO3 23, ABG O2 Sat (Measured) 95.0 L, P-50 (Temp Corrected) YES, Carboxyhemoglobin 1.7, O2 Concentration % 35%, Temperature 97.6, Respiration Rate 14, O2 Delivery Method VENT, Vent Mode VC/AC, Expiratory Pressure 5, Tidal Volume 500, Phlebotomy Draw Site LEFT RADIAL 05/22/17 1300: CBC w Diff NO MAN DIFF REQ, RBC 2.76 L, MCV 91.9, MCH 29.5, RDW 21.4 H, MPV 8.8, Gran % 93.6 H, Lymphocytes % 2.7 L, Monocytes % 3.7, Eosinophils % 0, Basophils % 0, Absolute Granulocytes 6.8 H, Absolute Lymphocytes 0.2 L, Absolute Monocytes 0.3, Absolute Eosinophils 0, Absolute Basophils 0, PUBS MCHC 32.2 L 05/22/17 0455: pH 7.51 H, pCO2 28 L, pO2 92, HCO3 22, ABG O2 Sat (Measured) 96.0, P-50 (Temp Corrected) Y, Carboxyhemoglobin 0.3 L, O2 Concentration % 35%, Temperature 98.4 , Respiration Rate 14, O2 Delivery Method ESPRIT, Vent Mode AC, Expiratory Pressure 5, Tidal Volume 550, Phlebotomy Draw Site LEFT RADIAL 05/22/17 0347: Anion Gap 10, Estimated GFR 22 L, Glucose 185 H, Calcium 7.3 L, Phosphorus 4.6 H, Magnesium 2.0, Total Bilirubin 0.2, AST 11 L, ALT 44, Albumin 1.8 L, PT 10.2, INR 0.97, APTT 29, Fibrinogen Activity 244, D-Dimer High Sensitivty 1152 H, CBC w Diff NO MAN DIFF REQ, RBC 2.71 L, MCV 91.6, MCH 29.4, RDW 21.3 H, MPV 10.4, Gran % 91.8 H, Lymphocytes % 4.3 L, Monocytes % 3.9, Eosinophils % 0, Basophils % 0, Absolute Granulocytes 4.4, Absolute Lymphocytes 0.2 L, Absolute Monocytes 0.2, Absolute Eosinophils 0, Absolute Basophils 0, PUBS MCHC 32.1 L, Random Vancomycin 17.8 05/22/17 0004: Troponin I 0.36 *H, Free T4 0.86, Total T3 0.51 L 05/21/17 1700: Troponin I 0.41 *H 05/21/17 1200: Potassium Cancelled 05/21/17 1131: Urine Osmolality Cancelled 05/21/17 1100: Urine Color YEL, Urine Clarity HAZY H, Urine pH 5.5, Ur Specific [place] >= 1.030, Urine Protein TRACE H, Urine Ketones TRACE H, Urine Nitrite NEG, Urine Bilirubin NEG@ICTO, Urine Urobilinogen 0.2, Ur Leukocyte Esterase NEG, Ur Microscopic SEDIMENT EXAMINED, Urine RBC 25-50 H, Urine WBC 1-3 H, Ur Epithelial Cells RARE, Urine Bacteria RARE H, Micro UA Comment B[place] YEAST H , Urine Hemoglobin LARGE H, Urine Glucose NEG 05/21/17 1100: Urine Osmolality 472, Ur Random Creatinine 125.6, Ur Random Sodium 6 L, Ur Random Potassium 92.4, Fraction Sodium Excret 0.1 05/21/17 0945: Troponin I 0.37 *H 05/21/17 0900: Potassium Cancelled Recent Imaging Studies: Tely AF 80-130 bpm Assessment/Plan Assessment/Plan 1. Acute hypoxic respiratory failure/septic shock likely due to pneumonia, remains intubated, but hemodynamically stable 2. Metabolic encephalopathy-improved 3. Rapid atrial fibrillation. Rate better controlled with iv amiodarone. 4. GARCÍA-creatinine improved 5.Thrombocytopenia/ITP, platelet count improved 6. TSH low-?sick euthyroid vs hyperthyroidism contributing to rapid AF? 7. PVD with severe left SFA disease, no surgical intervention as per vascular surgery 8. Abnormal troponin likely due to demand ischemia/hypoxia. Plan: check CVP to assess volume status continue iv fluids (stop fluids if CVP above 14) start metoprolol tartarate 25 mg bid continue iv Amiodarone weaning trials and ?extubation today would change iv amiodarone to NGT 400 mg tid no anticoagulation for now due to low platelet count Continue telemetry? Yes
--- NOTE | 2017-05-23 07:38 | PN- Diabetes ---
Assessment/Plan Assessment: The patient remains intubated and sedated on a respirator. She is requiring less oxygen. She was started on 10 units of Levemir twice a day yesterday along with sliding scale NovoLog every 4 hours. The patient is on D5 half-normal saline at 75 cc/ h. Her blood sugar in the lab at 3:47 AM was 154. , Her last fingerstick blood sugar was 186. The patient has abnormal thyroid function tests. Thyroid function tests done this morning reveal a TSH of 0.1 to a free T4 of 0.82 and a total T3 which is pending. Most likely this is sick euthyroid. The patient's body temperature was normal and she does not have bradycardia. She is on drugs that can affect her thyroid function. A high iodine load from the amiodarone can inhibit the release of thyroid hormone but gradually her thyroid gland will overcome this effect. In addition steroids can lower the TSH. Plan: Recommendation at this point would be to continue to follow her thyroid function tests. We can repeat her free T4 and TSH tomorrow. With regard to her diabetes I would add potassium to the intravenous fluid. We can run D5 half-normal saline +20 mEq of KCl at 75 cc/h. Continue Levemir 10 units twice a day. Continue sliding scale NovoLog every 4 hours. Subjective Subjective: Intubated and sedated Objective Last 24 Hrs of Vital Signs/I&O Vital Signs Date Time Temp Pulse Resp B/P B/P Pulse O2 O2 Flow FiO2 Mean Ox Delivery Rate 05/23 0725 88 14 126/57 05/23 0620 30 05/23 0400 96 Ventilator 30% 05/23 0330 30 05/23 0139 30 05/23 0129 81 102/51 05/23 0000 96 Venti Mask 30% 05/23 0000 97.8 76 14 114/60 95 Ventilator 95% 05/22 2236 30 05/22 2006 95 103/63 05/22 2000 96 Ventilator 35% 05/22 1915 30 05/22 1605 30 05/22 1600 95 Ventilator 35% 05/22 1600 97.8 125 16 144/84 96 Ventilator 35% 05/22 1420 35 05/22 1400 98.0 116 16 153/93 05/22 1203 35 05/22 1200 99 Ventilator 35% 05/22 0822 35 05/22 0800 97 Ventilator 35% 01/18 0800 97.6 88 14 140/64 98 Ventilator 35% 05/22 0756 120 112/67 Intake & Output 05/23 0800 05/23 0000 05/22 1600 Intake Total 1092 1019 1626 Output Total 451 418 475 Balance 803 856 3172 Intake, Blood 240 Product Intake, IV 1092 1019 1336 Intake, Oral 0 0 Intake, Other 50 Number 0 0 Bowel Movements Output, 0 50 Gastric Drainage Output, Urine 451 418 425 Patient 266 lb Weight Weight Bed scale Measurement Method Vital Signs Date Time Temp Pulse Resp B/P B/P Pulse O2 O2 Flow FiO2 Mean Ox Delivery Rate 05/23 0725 88 14 126/57 05/23 0620 30 05/23 0400 96 Ventilator 30% 05/23 0330 30 05/23 0139 30 05/23 0129 81 102/51 05/23 0000 96 Venti Mask 30% 05/23 0000 97.8 76 14 114/60 95 Ventilator 95% 05/22 2236 30 05/22 2006 95 103/63 05/22 2000 96 Ventilator 35% 05/22 1915 30 05/22 1605 30 05/22 1600 95 Ventilator 35% 05/22 1600 97.8 125 16 144/84 96 Ventilator 35% 05/22 1420 35 05/22 1400 98.0 116 16 153/93 05/22 1203 35 05/22 1200 99 Ventilator 35% 05/22 0822 35 05/22 0800 97 Ventilator 35% 05/22 0800 97.6 88 14 140/64 98 Ventilator 35% 05/22 0756 120 112/67 Intake & Output 05/23 0800 05/23 0000 05/22 1600 Intake Total 1092 1019 1626 Output Total 451 418 475 Balance 889 206 3083 Intake, Blood 240 Product Intake, IV 1092 1019 1336 Intake, Oral 0 0 Intake, Other 50 Number 0 0 Bowel Movements Output, 0 50 Gastric Drainage Output, Urine 451 418 425 Patient 266 lb Weight Weight Bed scale Measurement Method Physical Exam General Appearance: sedated, intubated Head: normal appearance Neck: normal inspection Respiratory: normal breath sounds Cardiovascular: irregularly irregular Abdomen: normal bowel sounds Extremities: swelling Current Medications: Current Medications Sig/Ric Start time Last Medication Dose Route Stop Time Status Admin Acetaminophen 650 MG Q6P PRN 05/19 0300 AC PO Acetaminophen 1,000 MG Q6P PRN 01/15 0300 AC IV Amiodarone HCl/ 360 MG Q6H 05/21 1100 AC 05/23 Dextrose IV 0725 N/A 1 UNIT Dextrose/Sodium 1,000 ML Q10H 05/22 1515 AC 05/23 Chloride IV 0534 Hydrocortisone 100 MG Q8 05/19 1639 AC 05/23 Sodium Succinate IV 0531 Insulin Aspart 0 Q4H 05/21 1800 AC 05/23 SC 0531 Insulin Detemir 10 UNITS BID 05/21 1530 AC 05/22 SC 2206 Oxacillin Sodium 2,000 MG Q4 05/22 1400 DC Dextrose/Water 100 ML IV Oxacillin Sodium 2,000 MG Q4 05/22 1400 AC 05/23 Sodium Chloride 100 ML IV 0532 Pantoprazole Sodium 40 MG DAILY 05/20 0030 AC 05/22 IV 0953 Potassium Chloride 60 MEQ ONCE ONE 05/23 0700 DC PO 05/23 0701 Propofol 1,000 MG Q24H 05/20 0615 AC 05/23 N/A 1 UNIT IV 0353 Sodium Bicarbonate 1,300 MG TID 05/21 1600 DC 05/22 PO 0952 Sodium Chloride 1,000 ML Q10H 05/21 1830 DC 05/22 IV 1326 Findings Pertinent Lab/Silvano Results: Laboratory Tests 05/23 05/23 0600 0535 Blood Gas pH (7.35 - 7.45 PH) 7.50 H pCO2 (35 - 45 TORR) 28 L pO2 (80 - 100 TORR) 79 L HCO3 (21 - 28 MEQ/L) 22 ABG O2 Sat (Measured) (>96.0 %) 95.0 L P-50 (Temp Corrected) Y Carboxyhemoglobin (1.5 - 5.0 %) 0.1 L O2 Concentration % 30% Temperature (97.0 - 100.0 FARH) 98.0 Respiration Rate (BPM) 14 O2 Delivery Method ESPRIT Vent Mode AC Expiratory Pressure (CMH2O/P) 5 Tidal Volume (CC) 500 Chemistry TSH &T3 &Free T4 Intrp Cancelled Miscellaneous Phlebotomy Draw Site LEFT RADIAL 05/23 0347 Chemistry Sodium (137 - 145 mmol/L) 144 Potassium (3.5 - 5.1 mmol/L) 3.1 L Chloride (98 - 107 mmol/L) 109 H Carbon Dioxide (22 - 30 mmol/L) 26 Anion Gap (5 - 16) 9 BUN (7 - 17 mg/dL) 57 H Creatinine (0.5 - 1.0 mg/dL) 1.5 H Estimated GFR (>60 ml/min) 33 L Glucose (65 - 99 mg/dL) 154 H Calcium (8.4 - 10.2 mg/dL) 7.4 L Phosphorus (2.5 - 4.5 mg/dL) 3.8 Magnesium (1.6 - 2.3 mg/dL) 2.0 Total Bilirubin (0.2 - 1.3 mg/dL) 0.2 AST (14 - 36 U/L) 15 ALT (9 - 52 U/L) 36 Albumin (3.5 - 5.0 g/dL) 1.7 L Free T4 (0.85 - 1.93 ng/dL) 0.82 L Total T3 (0.97 - 1.69 ng/mL) 0.45 L TSH &T3 &Free T4 Intrp (0.270 - 4.20 uIU/mL) 0.121 L Coagulation PT (9.4 - 12.5 SEC) 10.8 INR (0.90 - 1.19) 1.03 APTT (25 - 37 SEC) 28 Fibrinogen Activity (200 - 393 MG/DL) 219 D-Dimer High Sensitivty (0 - 243 ng/ml) 1609 H Hematology CBC w Diff NO MAN DIFF REQ WBC (4.8 - 10.8 /CUMM) 4.1 L RBC (4.20 - 5.40 /CUMM) 2.57 L Hgb (12.0 - 16.0 G/DL) 7.7 L Hct (37 - 47 %) 23.5 L MCV (81.0 - 99.0 FL) 91.6 MCH (27.0 - 31.0 PG) 29.8 RDW (11.5 - 14.5 %) 21.7 H Plt Count (130 - 400 /CUMM) 36 L MPV (7.4 - 10.4 FL) 9.1 Gran % (42.2 - 75.2 %) 92.1 H Lymphocytes % (20.5 - 51.1 %) 4.0 L Monocytes % (1.7 - 9.3 %) 3.7 Eosinophils % (0 - 5 %) 0.1 Basophils % (0.0 - 2.0 %) 0.1 Absolute Granulocytes (1.4 - 6.5 /CUMM) 3.8 Absolute Lymphocytes (1.2 - 3.4 /CUMM) 0.2 L Absolute Monocytes (0.10 - 0.60 /CUMM) 0.2 Absolute Eosinophils (0.0 - 0.7 /CUMM) 0 Absolute Basophils (0.0 - 0.2 /CUMM) 0 PUBS MCHC (33.0 - 37.0 G/DL) 32.6 L Toxicology Digoxin (0.8 - 2.0 ng/mL) 1.4 05/22 1305 Blood Gas pH (7.35 - 7.45 PH) 7.49 H pCO2 (35 - 45 TORR) 31 L pO2 (80 - 100 TORR) 74 L HCO3 (21 - 28 MEQ/L) 23 ABG O2 Sat (Measured) (>96.0 %) 95.0 L P-50 (Temp Corrected) YES Carboxyhemoglobin (1.5 - 5.0 %) 1.7 O2 Concentration % 35% Temperature (97.0 - 100.0 FARH) 97.6 Respiration Rate (BPM) 14 O2 Delivery Method VENT Vent Mode VC/AC Expiratory Pressure (CMH2O/P) 5 Tidal Volume (CC) 500 Hematology CBC w Diff NO MAN DIFF REQ WBC (4.8 - 10.8 /CUMM) 5.6 RBC (4.20 - 5.40 /CUMM) 2.64 L Hgb (12.0 - 16.0 G/DL) 7.7 L Hct (37 - 47 %) 24.2 L MCV (81.0 - 99.0 FL) 91.7 MCH (27.0 - 31.0 PG) 29.2 RDW (11.5 - 14.5 %) 21.0 H Plt Count (130 - 400 /CUMM) 43 L MPV (7.4 - 10.4 FL) 9.0 Gran % (42.2 - 75.2 %) 92.3 H Lymphocytes % (20.5 - 51.1 %) 3.5 L Monocytes % (1.7 - 9.3 %) 3.7 Eosinophils % (0 - 5 %) 0.4 Basophils % (0.0 - 2.0 %) 0.1 Absolute Granulocytes (1.4 - 6.5 /CUMM) 5.1 Absolute Lymphocytes (1.2 - 3.4 /CUMM) 0.2 L Absolute Monocytes (0.10 - 0.60 /CUMM) 0.2 Absolute Eosinophils (0.0 - 0.7 /CUMM) 0 Absolute Basophils (0.0 - 0.2 /CUMM) 0 PUBS MCHC (33.0 - 37.0 G/DL) 31.8 L Miscellaneous Phlebotomy Draw Site LEFT RADIAL 05/22 1300 Hematology CBC w Diff NO MAN DIFF REQ WBC (4.8 - 10.8 /CUMM) 7.3 RBC (4.20 - 5.40 /CUMM) 2.76 L Hgb (12.0 - 16.0 G/DL) 8.2 L Hct (37 - 47 %) 25.4 L MCV (81.0 - 99.0 FL) 91.9 MCH (27.0 - 31.0 PG) 29.5 RDW (11.5 - 14.5 %) 21.4 H Plt Count (130 - 400 /CUMM) 43 L MPV (7.4 - 10.4 FL) 8.8 Gran % (42.2 - 75.2 %) 93.6 H Lymphocytes % (20.5 - 51.1 %) 2.7 L Monocytes % (1.7 - 9.3 %) 3.7 Eosinophils % (0 - 5 %) 0 Basophils % (0.0 - 2.0 %) 0 Absolute Granulocytes (1.4 - 6.5 /CUMM) 6.8 H Absolute Lymphocytes (1.2 - 3.4 /CUMM) 0.2 L Absolute Monocytes (0.10 - 0.60 /CUMM) 0.3 Absolute Eosinophils (0.0 - 0.7 /CUMM) 0 Absolute Basophils (0.0 - 0.2 /CUMM) 0 PUBS MCHC (33.0 - 37.0 G/DL) 32.2 L
[2017-05-23 08:00] VITALS: BP 136/70
--- NOTE | 2017-05-23 08:16 | RADIOLOGY REPORT ---
EXAMINATION: XR PORTABLE CHEST CLINICAL INFORMATION: Intubated patient. COMPARISON: Chest done on 05/22/2017. TECHNIQUE: Portable frontal view of the chest was obtained. FINDINGS: The tip of the endotracheal tube is located approximately 1.3 cm above the level of the krystal. The enteric tube tip is not visualized due to underexposure and accordingly not localized. The right-sided central line tip is projecting at the cavoatrial junction. Persistent nonspecific airspace opacification is noted at the left lower lobe of the lung with a possible small to moderate left-sided pleural effusion, which shows progression since 05/22/2017. Nonspecific airspace opacities are also noted at the right lung base, unchanged. IMPRESSION: 1. The tip of the endotracheal tube is located approximately 1.3 cm above the level of the krystal. 2. Pleural parenchymal opacity seen at the left mid to lower lung field shows interval progression since 05/22/2017. 3. No other significant change. This critical result was discussed with Dr. Adiel Dowling MD at 8:07 AM on 05/23/2017 and it was ascertained that the content and urgency of the report was understood at the time of direct communication.
--- NOTE | 2017-05-23 09:58 | PN- Hematology ---
Subjective Subjective: She continues to be intubated. She is arousable. She denies any new pain. She has no bleeding complication. She tolerated the platelet transfusion well. Review of Systems: Unable to be obtained secondary to intubation. Objective Vital Signs and I&Os Vital Signs Date Time Temp Pulse Resp B/P B/P Pulse O2 O2 Flow FiO2 Mean Ox Delivery Rate 05/23 0940 98.6 106 23 138/90 05/23 0840 30 05/23 0725 88 14 126/57 05/23 0620 30 05/23 0400 96 Ventilator 30% 05/23 0330 30 05/23 0139 30 05/23 0129 81 102/51 05/23 0000 96 Venti Mask 30% 05/23 0000 97.8 76 14 114/60 95 Ventilator 95% 05/22 2236 30 05/22 2006 95 103/63 05/22 2000 96 Ventilator 35% 05/22 1915 30 05/22 1605 30 05/22 1600 95 Ventilator 35% 05/22 1600 97.8 125 16 144/84 96 Ventilator 35% 05/22 1420 35 05/22 1400 98.0 116 16 153/93 05/22 1203 35 05/22 1200 99 Ventilator 35% Intake & Output 05/23 1600 05/23 0800 05/23 0000 05/22 1600 05/22 0800 05/22 0000 Intake Total 1092 1019 1626 1129 1263 Output Total 451 418 475 395 331 Balance 358 004 9288 734 932 Intake, Blood 240 Product Intake, IV 1092 1019 1336 1129 1173 Intake, Oral 0 0 0 0 Intake, Other 50 Intake, Tube 90 Irrigant Number 0 0 0 Bowel Movements Output, 0 50 Gastric Drainage Output, Stool 0 Output, Urine 451 418 425 395 331 Patient 120.769 kg 120.769 kg Weight Weight Bed scale Measurement Method Physical Exam: General Appearance: sedated, intubated Ears, Nose, Throat: ET tube in place Respiratory: chest non-tender, crackles, respiratory distress, on ventilator, FiO2 50% Cardiovascular: tachycardia, irregularly irregular Abdomen: normal bowel sounds, soft, non-tender Extremities: bilateral upper extremity 2+ edema, hyperpigmented lower extremities, a few ecchymoses in upper extremity Neurologic/Psychiatric: intubated and sedated but arousable Current Medications: Current Medications Sig/Ric Start time Last Medication Dose Route Stop Time Status Admin Acetaminophen 650 MG Q6P PRN 05/19 0300 AC PO Acetaminophen 1,000 MG Q6P PRN 05/19 0300 AC IV Amiodarone HCl/ 360 MG Q6H 05/21 1100 AC 05/23 Dextrose IV 0725 N/A 1 UNIT Dextrose/Sodium 1,000 ML Q10H 05/22 1515 SD 05/23 Chloride IV 0534 Docusate Sodium 100 MG DAILY AC 05/23 0820 05/23 PO 0940 Hydrocortisone 100 MG Q8 05/19 1639 05/23 Sodium Succinate IV 0531 Insulin Aspart 0 Q4H 05/21 1800 05/23 SC 0531 Insulin Detemir 10 UNITS BID 05/21 1530 05/23 SC 0945 Metoprolol Tartrate 25 MG BID 05/23 1000 AC 05/23 PO 0940 Oxacillin Sodium 2,000 MG Q4 05/22 1400 DC Dextrose/Water 100 ML IV Oxacillin Sodium 2,000 MG Q4 05/22 1400 AC 05/23 Sodium Chloride 100 ML IV 0940 Pantoprazole Sodium 40 MG DAILY 05/20 0030 05/23 IV 0940 Polyethylene Glycol 17 GM DAILY 05/23 1000 05/23 PO 0941 Potassium Chloride 20 MEQ DAILY 05/23 1000 CAN IV Potassium Chloride 20 MEQ Q13H 05/23 1000 05/23 Dextrose/Sodium 1,000 ML IV 05/24 1159 0854 Chloride Potassium Chloride 60 MEQ ONCE ONE 05/23 0700 DC 05/23 PO 05/23 0701 0812 Propofol 1,000 MG Q24H 05/20 0615 05/23 N/A 1 UNIT IV 0353 Sodium Bicarbonate 1,300 MG TID 05/21 1600 DC 05/22 PO 0952 Sodium Chloride 1,000 ML Q10H 05/21 1830 DC 05/22 IV 1326 Results Last 24 Hours of Lab Results: Laboratory Tests 05/23 05/23 0600 0535 Blood Gas pH (7.35 - 7.45 PH) 7.50 H pCO2 (35 - 45 TORR) 28 L pO2 (80 - 100 TORR) 79 L HCO3 (21 - 28 MEQ/L) 22 ABG O2 Sat (Measured) (>96.0 %) 95.0 L P-50 (Temp Corrected) Y Carboxyhemoglobin (1.5 - 5.0 %) 0.1 L O2 Concentration % 30% Temperature (97.0 - 100.0 FARH) 98.0 Respiration Rate (BPM) 14 O2 Delivery Method ESPRIT Vent Mode AC Expiratory Pressure (CMH2O/P) 5 Tidal Volume (CC) 500 Chemistry TSH &T3 &Free T4 Intrp Cancelled Miscellaneous Phlebotomy Draw Site LEFT RADIAL 05/23 0347 Chemistry Sodium (137 - 145 mmol/L) 144 Potassium (3.5 - 5.1 mmol/L) 3.1 L Chloride (98 - 107 mmol/L) 109 H Carbon Dioxide (22 - 30 mmol/L) 26 Anion Gap (5 - 16) 9 BUN (7 - 17 mg/dL) 57 H Creatinine (0.5 - 1.0 mg/dL) 1.5 H Estimated GFR (>60 ml/min) 33 L Glucose (65 - 99 mg/dL) 154 H Calcium (8.4 - 10.2 mg/dL) 7.4 L Phosphorus (2.5 - 4.5 mg/dL) 3.8 Magnesium (1.6 - 2.3 mg/dL) 2.0 Total Bilirubin (0.2 - 1.3 mg/dL) 0.2 AST (14 - 36 U/L) 15 ALT (9 - 52 U/L) 36 Albumin (3.5 - 5.0 g/dL) 1.7 L Free T4 (0.85 - 1.93 ng/dL) 0.82 L Total T3 (0.97 - 1.69 ng/mL) 0.45 L TSH &T3 &Free T4 Intrp (0.270 - 4.20 uIU/mL) 0.121 L Coagulation PT (9.4 - 12.5 SEC) 10.8 INR (0.90 - 1.19) 1.03 APTT (25 - 37 SEC) 28 Fibrinogen Activity (200 - 393 MG/DL) 219 D-Dimer High Sensitivty (0 - 243 ng/ml) 1609 H Hematology CBC w Diff NO MAN DIFF REQ WBC (4.8 - 10.8 /CUMM) 4.1 L RBC (4.20 - 5.40 /CUMM) 2.57 L Hgb (12.0 - 16.0 G/DL) 7.7 L Hct (37 - 47 %) 23.5 L MCV (81.0 - 99.0 FL) 91.6 MCH (27.0 - 31.0 PG) 29.8 RDW (11.5 - 14.5 %) 21.7 H Plt Count (130 - 400 /CUMM) 36 L MPV (7.4 - 10.4 FL) 9.1 Gran % (42.2 - 75.2 %) 92.1 H Lymphocytes % (20.5 - 51.1 %) 4.0 L Monocytes % (1.7 - 9.3 %) 3.7 Eosinophils % (0 - 5 %) 0.1 Basophils % (0.0 - 2.0 %) 0.1 Absolute Granulocytes (1.4 - 6.5 /CUMM) 3.8 Absolute Lymphocytes (1.2 - 3.4 /CUMM) 0.2 L Absolute Monocytes (0.10 - 0.60 /CUMM) 0.2 Absolute Eosinophils (0.0 - 0.7 /CUMM) 0 Absolute Basophils (0.0 - 0.2 /CUMM) 0 PUBS MCHC (33.0 - 37.0 G/DL) 32.6 L Toxicology Digoxin (0.8 - 2.0 ng/mL) 1.4 05/228 1305 Blood Gas pH (7.35 - 7.45 PH) 7.49 H pCO2 (35 - 45 TORR) 31 L pO2 (80 - 100 TORR) 74 L HCO3 (21 - 28 MEQ/L) 23 ABG O2 Sat (Measured) (>96.0 %) 95.0 L P-50 (Temp Corrected) YES Carboxyhemoglobin (1.5 - 5.0 %) 1.7 O2 Concentration % 35% Temperature (97.0 - 100.0 FARH) 97.6 Respiration Rate (BPM) 14 O2 Delivery Method VENT Vent Mode VC/AC Expiratory Pressure (CMH2O/P) 5 Tidal Volume (CC) 500 Hematology CBC w Diff NO MAN DIFF REQ WBC (4.8 - 10.8 /CUMM) 5.6 RBC (4.20 - 5.40 /CUMM) 2.64 L Hgb (12.0 - 16.0 G/DL) 7.7 L Hct (37 - 47 %) 24.2 L MCV (81.0 - 99.0 FL) 91.7 MCH (27.0 - 31.0 PG) 29.2 RDW (11.5 - 14.5 %) 21.0 H Plt Count (130 - 400 /CUMM) 43 L MPV (7.4 - 10.4 FL) 9.0 Gran % (42.2 - 75.2 %) 92.3 H Lymphocytes % (20.5 - 51.1 %) 3.5 L Monocytes % (1.7 - 9.3 %) 3.7 Eosinophils % (0 - 5 %) 0.4 Basophils % (0.0 - 2.0 %) 0.1 Absolute Granulocytes (1.4 - 6.5 /CUMM) 5.1 Absolute Lymphocytes (1.2 - 3.4 /CUMM) 0.2 L Absolute Monocytes (0.10 - 0.60 /CUMM) 0.2 Absolute Eosinophils (0.0 - 0.7 /CUMM) 0 Absolute Basophils (0.0 - 0.2 /CUMM) 0 PUBS MCHC (33.0 - 37.0 G/DL) 31.8 L Miscellaneous Phlebotomy Draw Site LEFT RADIAL 05/22 1300 Hematology CBC w Diff NO MAN DIFF REQ WBC (4.8 - 10.8 /CUMM) 7.3 RBC (4.20 - 5.40 /CUMM) 2.76 L Hgb (12.0 - 16.0 G/DL) 8.2 L Hct (37 - 47 %) 25.4 L MCV (81.0 - 99.0 FL) 91.9 MCH (27.0 - 31.0 PG) 29.5 RDW (11.5 - 14.5 %) 21.4 H Plt Count (130 - 400 /CUMM) 43 L MPV (7.4 - 10.4 FL) 8.8 Gran % (42.2 - 75.2 %) 93.6 H Lymphocytes % (20.5 - 51.1 %) 2.7 L Monocytes % (1.7 - 9.3 %) 3.7 Eosinophils % (0 - 5 %) 0 Basophils % (0.0 - 2.0 %) 0 Absolute Granulocytes (1.4 - 6.5 /CUMM) 6.8 H Absolute Lymphocytes (1.2 - 3.4 /CUMM) 0.2 L Absolute Monocytes (0.10 - 0.60 /CUMM) 0.3 Absolute Eosinophils (0.0 - 0.7 /CUMM) 0 Absolute Basophils (0.0 - 0.2 /CUMM) 0 PUBS MCHC (33.0 - 37.0 G/DL) 32.2 L Recent Imaging Studies: Doppler ultrasound of the upper extremity 05/22/2017: No ultrasound evidence of deep venous thrombosis involving the bilateralupper extremities. Examination limited as above. Assessment/Plan Assessment/Recommendations: Ms. 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 She has been having new cough a few days ago. CTA demonstrated moderate atelectasis/consolidation in the left upper and lower lobes. There was mild right base atelectasis and moderate left and small-to- moderate right pleural effusions. She remains hypotensive and is on Levophed. She is being treated empirically for sepsis. he responded to 1 unit of pooled platelets. Her platelet count increased to 43, 000 after 1 transfusion. It has decreased to 36,000 this morning. Given her size, there is month seems appropriate. One would have expect her platelet to not respond to transfusion. This suggest ITP may not be the only process the moment. Peripheral blood smear was obtained and reviewed. She does not have any schistocytes. Platelets slightly large but decreased. She has hypersegmented neutrophil. She has no obvious bleeding right now. Her anemia is slightly worse today. This may be all related to underlying sepsis and hypertension. Renal function is improving. Given the recent blood work and clinical condition, TTP is less likely. She should continue on steroid 100 mg every 8 hours for now. If clinically improved, she may be a candidate for IVIG. Her fibrinogen is trending downward. DIC should continue to monitor monitor for now. She will continue with antibiotics for now. Cardiology is following for her atrial fibrillation. Acute hypoxic respiratory failure with shock: -management as per ICU -continue empiric broad spectrum antibiotics -infectious disease following Chronic ITP: -continue hydrocortisone 100 mg every 8 hours -continues to monitor the fibrinogen and PT/PTT Daily -IVIG and transfusion if acutely bleeding -will likely need second line therapy once stable Atrial fibrillation with RVR: -cardiology following -amiodarone drip GARCÍA: -nephrology following -monitor for now Please call [phone] with any questions or concerns. Problem List: 1. Atrial fibrillation with RVR 2. Pneumonia 3. Thrombocytopenia 4. Chronic anemia
--- NOTE | 2017-05-23 10:11 | PN- Infect Dx ---
Subjective Subjective: Afebrile on steroids. She does not offer any complaints Objective Last 24 Hrs of Vital Signs/I&O Vital Signs Date Time Temp Pulse Resp B/P B/P Pulse O2 O2 Flow FiO2 Mean Ox Delivery Rate 05/23 0940 98.6 106 23 138/90 05/23 0840 30 05/23 0725 88 14 126/57 05/23 0620 30 05/23 0400 96 Ventilator 30% 05/23 0330 30 05/23 0139 30 05/23 0129 81 102/51 05/23 0000 96 Venti Mask 30% 05/23 0000 97.8 76 14 114/60 95 Ventilator 95% 05/22 2236 30 05/22 2006 95 103/63 05/22 2000 96 Ventilator 35% 05/22 1915 30 05/22 1605 30 05/22 1600 95 Ventilator 35% 05/22 1600 97.8 125 16 144/84 96 Ventilator 35% 05/22 1420 35 05/22 1400 98.0 116 16 153/93 05/22 1203 35 05/22 1200 99 Ventilator 35% Intake & Output 05/23 1600 05/23 0800 05/23 0000 Intake Total 1092 1019 Output Total 451 418 Balance 641 601 Intake, IV 1092 1019 Intake, Oral 0 0 Number 0 0 Bowel Movements Output, 0 Gastric Drainage Output, Urine 451 418 Physical Exam Other Physical Findings: She appears comfortable on the ventilator in no acute distress Neck right IJ triple lumen catheter with no inflammation at the site Lungs are clear Heart irregular rhythm with no murmur Abdomen is obese, soft, nontender with positive bowel sounds Extremities chronic venous stasis changes both lower extremities Faust catheter remains in place Results Last 24 Hours of Lab Results: Laboratory Tests 05/23 05/23 0600 0535 Blood Gas pH (7.35 - 7.45 PH) 7.50 H pCO2 (35 - 45 TORR) 28 L pO2 (80 - 100 TORR) 79 L HCO3 (21 - 28 MEQ/L) 22 ABG O2 Sat (Measured) (>96.0 %) 95.0 L P-50 (Temp Corrected) Y Carboxyhemoglobin (1.5 - 5.0 %) 0.1 L O2 Concentration % 30% Temperature (97.0 - 100.0 FARH) 98.0 Respiration Rate (BPM) 14 O2 Delivery Method ESPRIT Vent Mode AC Expiratory Pressure (CMH2O/P) 5 Tidal Volume (CC) 500 Chemistry TSH &T3 &Free T4 Intrp Cancelled Miscellaneous Phlebotomy Draw Site LEFT RADIAL 05/23 034 Chemistry Sodium (137 - 145 mmol/L) 144 Potassium (3.5 - 5.1 mmol/L) 3.1 L Chloride (98 - 107 mmol/L) 109 H Carbon Dioxide (22 - 30 mmol/L) 26 Anion Gap (5 - 16) 9 BUN (7 - 17 mg/dL) 57 H Creatinine (0.5 - 1.0 mg/dL) 1.5 H Estimated GFR (>60 ml/min) 33 L Glucose (65 - 99 mg/dL) 154 H Calcium (8.4 - 10.2 mg/dL) 7.4 L Phosphorus (2.5 - 4.5 mg/dL) 3.8 Magnesium (1.6 - 2.3 mg/dL) 2.0 Total Bilirubin (0.2 - 1.3 mg/dL) 0.2 AST (14 - 36 U/L) 15 ALT (9 - 52 U/L) 36 Albumin (3.5 - 5.0 g/dL) 1.7 L Free T4 (0.85 - 1.93 ng/dL) 0.82 L Total T3 (0.97 - 1.69 ng/mL) 0.45 L TSH &T3 &Free T4 Intrp (0.270 - 4.20 uIU/mL) 0.121 L Coagulation PT (9.4 - 12.5 SEC) 10.8 INR (0.90 - 1.19) 1.03 APTT (25 - 37 SEC) 28 Fibrinogen Activity (200 - 393 MG/DL) 219 D-Dimer High Sensitivty (0 - 243 ng/ml) 1609 H Hematology CBC w Diff NO MAN DIFF REQ WBC (4.8 - 10.8 /CUMM) 4.1 L RBC (4.20 - 5.40 /CUMM) 2.57 L Hgb (12.0 - 16.0 G/DL) 7.7 L Hct (37 - 47 %) 23.5 L MCV (81.0 - 99.0 FL) 91.6 MCH (27.0 - 31.0 PG) 29.8 RDW (11.5 - 14.5 %) 21.7 H Plt Count (130 - 400 /CUMM) 36 L MPV (7.4 - 10.4 FL) 9.1 Gran % (42.2 - 75.2 %) 92.1 H Lymphocytes % (20.5 - 51.1 %) 4.0 L Monocytes % (1.7 - 9.3 %) 3.7 Eosinophils % (0 - 5 %) 0.1 Basophils % (0.0 - 2.0 %) 0.1 Absolute Granulocytes (1.4 - 6.5 /CUMM) 3.8 Absolute Lymphocytes (1.2 - 3.4 /CUMM) 0.2 L Absolute Monocytes (0.10 - 0.60 /CUMM) 0.2 Absolute Eosinophils (0.0 - 0.7 /CUMM) 0 Absolute Basophils (0.0 - 0.2 /CUMM) 0 PUBS MCHC (33.0 - 37.0 G/DL) 32.6 L Toxicology Digoxin (0.8 - 2.0 ng/mL) 1.4 05/22 05/22 2058 1305 Blood Gas pH (7.35 - 7.45 PH) 7.49 H pCO2 (35 - 45 TORR) 31 L pO2 (80 - 100 TORR) 74 L HCO3 (21 - 28 MEQ/L) 23 ABG O2 Sat (Measured) (>96.0 %) 95.0 L P-50 (Temp Corrected) YES Carboxyhemoglobin (1.5 - 5.0 %) 1.7 O2 Concentration % 35% Temperature (97.0 - 100.0 FARH) 97.6 Respiration Rate (BPM) 14 O2 Delivery Method VENT Vent Mode VC/AC Expiratory Pressure (CMH2O/P) 5 Tidal Volume (CC) 500 Hematology CBC w Diff NO MAN DIFF REQ WBC (4.8 - 10.8 /CUMM) 5.6 RBC (4.20 - 5.40 /CUMM) 2.64 L Hgb (12.0 - 16.0 G/DL) 7.7 L Hct (37 - 47 %) 24.2 L MCV (81.0 - 99.0 FL) 91.7 MCH (27.0 - 31.0 PG) 29.2 RDW (11.5 - 14.5 %) 21.0 H Plt Count (130 - 400 /CUMM) 43 L MPV (7.4 - 10.4 FL) 9.0 Gran % (42.2 - 75.2 %) 92.3 H Lymphocytes % (20.5 - 51.1 %) 3.5 L Monocytes % (1.7 - 9.3 %) 3.7 Eosinophils % (0 - 5 %) 0.4 Basophils % (0.0 - 2.0 %) 0.1 Absolute Granulocytes (1.4 - 6.5 /CUMM) 5.1 Absolute Lymphocytes (1.2 - 3.4 /CUMM) 0.2 L Absolute Monocytes (0.10 - 0.60 /CUMM) 0.2 Absolute Eosinophils (0.0 - 0.7 /CUMM) 0 Absolute Basophils (0.0 - 0.2 /CUMM) 0 PUBS MCHC (33.0 - 37.0 G/DL) 31.8 L Miscellaneous Phlebotomy Draw Site LEFT RADIAL 05/22 1300 Hematology CBC w Diff NO MAN DIFF REQ WBC (4.8 - 10.8 /CUMM) 7.3 RBC (4.20 - 5.40 /CUMM) 2.76 L Hgb (12.0 - 16.0 G/DL) 8.2 L Hct (37 - 47 %) 25.4 L MCV (81.0 - 99.0 FL) 91.9 MCH (27.0 - 31.0 PG) 29.5 RDW (11.5 - 14.5 %) 21.4 H Plt Count (130 - 400 /CUMM) 43 L MPV (7.4 - 10.4 FL) 8.8 Gran % (42.2 - 75.2 %) 93.6 H Lymphocytes % (20.5 - 51.1 %) 2.7 L Monocytes % (1.7 - 9.3 %) 3.7 Eosinophils % (0 - 5 %) 0 Basophils % (0.0 - 2.0 %) 0 Absolute Granulocytes (1.4 - 6.5 /CUMM) 6.8 H Absolute Lymphocytes (1.2 - 3.4 /CUMM) 0.2 L Absolute Monocytes (0.10 - 0.60 /CUMM) 0.3 Absolute Eosinophils (0.0 - 0.7 /CUMM) 0 Absolute Basophils (0.0 - 0.2 /CUMM) 0 PUBS MCHC (33.0 - 37.0 G/DL) 32.2 L Last 24 Hours of Silvano Results: No new cultures Recent Imaging Studies: Chest x-ray May 23, personally reviewed, reveals an increased density in the left mid to lower lung Doppler of the left upper extremity negative for DVT Arterial Dopplers of both lower extremities May 22 reveal no evidence of stenosis or occlusion Assessment/Plan Impression: Continues to improve with decreasing oxygen requirements and with temperatures and white blood cell count normal (on steroids) now on Oxacillin, Day 5 of treatment for MSSA pneumonia. Her renal failure, likely secondary to sepsis or contrast, continues to improve and her platelet count has also increased, status post transfusion yesterday. Her H&H, though low, remains relatively stable, with no further evaluation for a source of bleeding pursued. Suggestion: 1. Would remove right IJ triple-lumen catheter if able to obtain peripheral access 2. Further evaluation of her anemia per Medicine 3. Further management of her ITP per Hematology 4. Continue Oxacillin
--- NOTE | 2017-05-23 11:23 | RADIOLOGY REPORT ---
EXAMINATION: XR PORTABLE CHEST CLINICAL INFORMATION: Intubation. Assess for line placement. COMPARISON: Chest x-ray earlier 05/23/2017. TECHNIQUE: Portable frontal semierect view of the chest was obtained. FINDINGS: The tip of the endotracheal tube is now located approximately 2.8 cm above the level of the krystal. The enteric tube is noted extending below the level of the diaphragm and lower margin of the image. The right-sided central catheter Is unchanged in position with the tip at the cavoatrial junction. The study redemonstrates extensive opacification of the left mid and lower zones with some sparing at the left lung apex. The cardiac silhouette is difficult to assess but appears prominent. There is a moderate-sized left pleural effusion, similar compared to the earlier x-ray. Patchy opacities at the right lung base are stable. There are multiple monitor leads also overlying the chest. There are no acute osseous findings. IMPRESSION: 1. The endotracheal tube tip is approximately 2.8 cm above the krystal on the current study. 2. The other lines and tubes are stable. 3. There has been no interval change in the opacity in the left mid and lower zones.
[2017-05-23 16:00] VITALS: BP 120/60
[2017-05-24] VITALS: BP 112/60
[2017-05-24 05:58] LABS: ABSOLUTE BASOPHIL COUNT 0 /CUMM (0.0-0.2); ABSOLUTE EOSINOPHIL COUNT 0 /CUMM (0.0-0.7); ABSOLUTE LYMPH COUNT 0.2 /CUMM (1.2-3.4); ABSOLUTE MONOCYTE COUNT 0.2 /CUMM (0.10-0.60); BASOPHIL % 0 % (0.0-2.0); EOSINOPHIL % 0.1 % (0-5); GRANULOCYTE % 91.9 % (42.2-75.2); HEMATOCRIT 25.6 % (37-47); MEAN CORPUSCULAR HGB 29.7 PG (27.0-31.0); MEAN CORPUSCULAR HGB CONC 32.5 G/DL (33.0-37.0); MEAN CORPUSCULAR VOLUME 91.4 FL (81.0-99.0); MEAN PLATELET VOLUME 9.9 FL (7.4-10.4); PLATELET COUNT 40 /CUMM (130-400); RBC DISTRIBUTION WIDTH 21.7 % (11.5-14.5); WHITE BLOOD CELL COUNT 4.3 /CUMM (4.8-10.8)
[2017-05-24 06:07] LABS: PT 10.2 SEC (9.4-12.5); PTT 28 SEC (25-37)
[2017-05-24 08:00] VITALS: BP 138/80
--- NOTE | 2017-05-24 08:12 | RADIOLOGY REPORT ---
EXAMINATION: XR PORTABLE CHEST CLINICAL INFORMATION: Intubation. Line and tube placement. COMPARISON: 05/23/2017. TECHNIQUE: Portable frontal view of the chest was obtained. FINDINGS: Endotracheal tube terminates 4.8 cm above the krystal. Enteric tube extends below diaphragm but the tip is not clearly visualized. The right jugular line extends to the cavoatrial junction region. The lung volumes remain decreased. There is improvement in the left pleural effusion and aeration in the left upper lung. There remains a left pleural effusion and consolidation/volume loss in the left mid and lower lung. Patchy opacity at the right lung base is also unchanged. IMPRESSION: 1. Decreased lung volumes. Improving aeration in the left upper lobe and improvement in the left pleural effusion. Persistent bibasilar opacities and small to moderate left pleural effusion. 2. Support tubes and lines as above.
--- NOTE | 2017-05-24 08:19 | PN- Resident CRCU ---
See Addendum Subjective HPI/CRCU Issues: Atrial Fibrilliation Hypotension Acute Hypoxic Respiratory Failure 24 Hour Events: Switched from IV to PO Amiodarone. Her heart rate remains elevated. Was given a trial of extubation yesterday but failed. Will likely give another attempt today. Platelet count mildly improved. Objective Vital Signs & I&O Last 8 Hrs of Vitals and I&O: . Exam General Appearance: awake, sedated, intubated, mild distress Head: atraumatic, normal appearance Ears, Nose, Throat: OG tube Neck: supple Respiratory: normal breath sounds, chest non-tender Cardiovascular: irregularly irregular Gastrointestinal: soft, non-tender Extremities: stasis skin changes Skin: stasis skin changes Skin Temp/Moisture Exam: Warm/Dry Sepsis Skin Exam (color): Normal for Ethnicity Weaning Parameters NIF: 27 Minute Volume: 8.29 Resp rate: 22 Vt: 377 Heart Rate: 138 Weaning Schedule Start Time: 0935 Minute Volume: 8.97 Resp Rate: 25 Vt: 359 Heart Rate: 94 End Time: 0950 Minute Volume: 6.93 Resp Rate: 24 Vt: 289 Heart Rate: 123 Current Medications: Current Medications Sig/Irc Start time Last Medication Dose Route Stop Time Status Admin Acetaminophen 650 MG Q6P PRN 05/19 0300 AC PO Acetaminophen 1,000 MG Q6P PRN 05/19 0300 AC IV Albumin Human 25 GM Q8H 05/24 0822 AC 05/24 IV 0950 Amiodarone HCl 400 MG Q8 05/23 1449 AC 05/24 PO 0543 Amiodarone HCl/ 360 MG Q6H 05/21 1100 DC 05/23 Dextrose IV 1559 N/A 1 UNIT Docusate Sodium 100 MG DAILY AC 05/23 0820 AC 05/24 PO 0543 Furosemide 20 MG ONCE ONE 05/24 1030 AC IV 05/24 1031 Furosemide 20 MG 1115 05/23 1115 DC 05/23 IV 05/23 1116 1108 Hydrocortisone 100 MG Q8 05/19 1639 AC 05/24 Sodium Succinate IV 0514 Insulin Aspart 0 Q4H 05/21 1800 AC 05/24 SC 1013 Insulin Detemir 12 UNITS BID 05/24 1000 AC 05/24 SC 0950 Insulin Detemir 10 UNITS BID 05/21 1530 DC 05/23 SC 2208 Metoprolol Tartrate 50 MG BID 05/24 1000 AC 05/24 PO 0958 Metoprolol Tartrate 25 MG BID 05/23 1000 DC 05/23 PO 2143 Oxacillin Sodium 2,000 MG Q4 05/22 1400 AC 05/24 Sodium Chloride 100 ML IV 0951 Pantoprazole Sodium 40 MG DAILY 05/20 0030 AC 05/24 IV 0951 Polyethylene Glycol 17 GM DAILY 05/23 1000 AC 05/24 PO 0950 Potassium Chloride 40 MEQ ONCE ONE 05/24 0645 CAN PO 05/24 0646 Potassium Chloride 40 MEQ ONCE ONE 05/24 0645 DC 05/24 PO 05/24 0646 0649 Potassium Chloride 20 MEQ Q13H 05/23 1000 AC 05/24 Dextrose/Sodium 1,000 ML IV 05/24 1159 0207 Chloride Propofol 1,000 MG Q24H 05/20 0615 AC 05/24 N/A 1 UNIT IV 0320 Impression/Plan Impression/Problem List Impression: 86 year old woman with past medical history of hypertension, hyperlipidemia, [place] s/p PCI with stent, diabetes mellitus, and restless leg syndrome, history of atrial fibrillation with anticoagulation on hold due to severe thrombocytopenia was sent in from extended care facility for hypoxia, leukocytosis and productive cough. She was admitted on telemetry floor and transfered to ICU yesterday after patient desaturated became unresponsive. Assessment and Plan: Acute hypoxic respiratory failure likely secondary to HCAP: * Her white count has normalized and she's been afebrile. Her sputum culture is growing MSSA. * Continue Oxacillin 2g q4 * Currently intubated with FiO2 of 35%. * ID recs appreciated. * A trial of weaning will attempted again today. Per cardiology, her heart rate should not be a limiting parameter for extubation. Atrial Fibrilliation with Hypotension: * Blood pressure much more stable now. * Will increase metoprolol at 50mg BID. * Digoxin has been discontinued. * Switched to oral Amiodarone 400mg TID. * AC on hold due to thrombocytopenia * Will continue IVF with D5-1/2NS @ 75ml/hr. Will stop after current bag. * Levophed was discontinued on 05/20 as blood pressure had been stable. * Echo - Normal left ventricular ejection fraction visually estimated at > 60% . Immune Thrombocytopenia: * Previously responded to oral Prednisone. She was on high dose 150mg/day * Currently on IV Hydrocortisone 100mg q8. Will continue. * Daily CBC * s/p 1 unit transfusion of platelets 05/22. 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 * Her fibrinogen has been decreasing each day. Will follow for another day. GARCÍA on CKD: * Cr improving. Currently 1.4 * Was likely contrast induced nephropathy * Will continue IVF with one more bag. * Will give her one dose of IV lasix 20mg for fluid overload. * Nephro recs appreciated. * Strict I&Os. * Diabetes Mellitus: * Currently receiving tube feeds. * Levemir 12mg BID * Insulin SS medium dose. Lower Extremity Skin Changes: * Was evaluated by vascular surgery. Recommend no surgical intervention at this time. History of restless leg syndrome: * Sinemet was recently discontinued * Lyrica on hold currently. * Lubriderm to affected skin. DVT Prophylaxis: ALPS Code: Full Problem List: 1. A-fib Pain Ratin Tomorrow's Labs & Rationales: CBC, ICU bundle, TFTs, Plan DVT/Prophylaxis: mechanical Plan DVT/Prophylaxis: mechanical
--- NOTE | 2017-05-24 08:54 | PN- Diabetes ---
Assessment/Plan Assessment: The patient remains intubated and sedated on a respirator. She is requiring less oxygen. She was started on 10 units of Levemir twice a day yesterday along with sliding scale NovoLog every 4 hours. The patient is on D5 half-normal saline at 75 cc/ h. This will be stopped in a few hours as the patient is on tube feedings. The patient is on Glucerna presently at 45 mL/h to increase to the goal gradually of 65 mL/h. The patient's blood sugar in the lab at 4:13 AM was 196 and her creatinine is down to 1.4. Her most recent blood sugars by fingerstick are 203 and 235. The patient has abnormal thyroid function tests. Thyroid function tests done this morning reveal a TSH of 0.091 to a free T4 of 0.96. Most likely this is sick euthyroid. The patient's body temperature was normal and she does not have bradycardia. She is on drugs that can affect her thyroid function. A high iodine load from the amiodarone can inhibit the release of thyroid hormone but gradually her thyroid gland will overcome this effect. In addition steroids can lower the TSH. Plan: Suggest increase the Levemir to 12 units twice a day. Continue the present sliding scale NovoLog every 4 hours. Once the intravenous solution of D5 half- normal saline is stopped we will have a better idea of how her blood sugars are going to be running on tube feedings alone. Make sure the patient gets adequate free water flushes as her serum sodium is 146. With regard to the patient's thyroid tests they seem to be staying about the same. They seem to represent sick euthyroid and the effects of medications including the high iodine load from amiodarone and the effect of steroids on her thyroid function tests. I would repeat the patient's free T4, TSH, and total T3 tomorrow a.m. Subjective Subjective: Patient is intubated and cannot answer questions Objective Last 24 Hrs of Vital Signs/I&O Vital Signs Date Time Temp Pulse Resp B/P B/P Pulse O2 O2 Flow FiO2 Mean Ox Delivery Rate 05/24 0612 30 05/24 0543 118 117/67 05/24 0400 98 Ventilator 30% 05/24 0250 30 05/24 0124 30 05/24 0000 97.3 90 14 112/60 97 Ventilator 30% 05/24 0000 97 Ventilator 30% 05/23 2216 30 05/23 2143 112 119/59 05/23 2143 116 119/59 05/23 1999 97 Ventilator 30% 05/23 1854 30 05/23 1618 98.0 106 16 144/76 05/23 1604 30 05/23 1600 95 Ventilator 30% 05/23 1600 98.0 106 16 120/60 95 Ventilator 30% 05/23 1559 98.4 110 14 117/63 05/23 1408 30 05/23 1200 97 Ventilator 30% 05/23 1127 30 05/23 0940 98.6 106 23 138/90 Intake & Output 05/24 1600 05/24 0800 05/24 0000 Intake Total 1330 1140 Output Total 200 650 Balance 1130 490 Intake, IV 784 770 Intake, Oral 0 Intake, Tube 246 150 Feeding Intake, Tube 300 220 Irrigant Number 1 0 Bowel Movements Output, Urine 200 650 Patient 273 lb Weight Weight Bed scale Measurement Method Vital Signs Date Time Temp Pulse Resp B/P B/P Pulse O2 O2 Flow FiO2 Mean Ox Delivery Rate 05/24 0612 30 05/24 0543 118 117/67 05/24 0400 98 Ventilator 30% 05/24 0250 30 05/24 0124 30 05/24 0000 97.3 90 14 112/60 97 Ventilator 30% 05/24 0000 97 Ventilator 30% 05/23 2216 30 05/23 2143 112 119/59 05/23 2143 116 119/59 05/23 1999 97 Ventilator 30% 05/23 1854 30 05/23 1618 98.0 106 16 144/76 05/23 1604 30 05/23 1600 95 Ventilator 30% 05/23 1600 98.0 106 16 120/60 95 Ventilator 30% 05/23 1559 98.4 110 14 117/63 05/23 1408 30 05/23 1200 97 Ventilator 30% 05/23 1127 30 05/23 0940 98.6 106 23 138/90 Intake & Output 05/24 1600 05/24 0800 05/24 0000 Intake Total 1330 1140 Output Total 200 650 Balance 1130 490 Intake, IV 784 770 Intake, Oral 0 Intake, Tube 246 150 Feeding Intake, Tube 300 220 Irrigant Number 1 0 Bowel Movements Output, Urine 200 650 Patient 273 lb Weight Weight Bed scale Measurement Method Physical Exam General Appearance: sedated, intubated Head: normal appearance Neck: normal inspection Respiratory: normal breath sounds Cardiovascular: regular rate/rhythm Current Medications: Current Medications Sig/Ric Start time Last Medication Dose Route Stop Time Status Admin Acetaminophen 650 MG Q6P PRN 05/19 0300 AC PO Acetaminophen 1,000 MG Q6P PRN 05/19 0300 AC IV Albumin Human 25 GM Q8H 05/24 0822 AC IV Amiodarone HCl 400 MG Q8 05/23 1449 AC 05/24 PO 0543 Amiodarone HCl/ 360 MG Q6H 05/21 1100 DC 05/23 Dextrose IV 1559 N/A 1 UNIT Docusate Sodium 100 MG DAILY AC 05/23 0820 AC 05/24 PO 0543 Furosemide 20 MG 1115 05/23 1115 DC 05/23 IV 05/23 1116 1108 Hydrocortisone 100 MG Q8 05/19 1639 AC 05/24 Sodium Succinate IV 0514 Insulin Aspart 0 Q4H 05/21 1800 AC 05/24 SC 0514 Insulin Detemir 10 UNITS BID 05/21 1530 AC 05/23 SC 2208 Metoprolol Tartrate 25 MG BID 05/23 1000 AC 05/23 PO 2143 Oxacillin Sodium 2,000 MG Q4 05/22 1400 AC 05/24 Sodium Chloride 100 ML IV 0516 Pantoprazole Sodium 40 MG DAILY 05/20 0030 AC 05/23 IV 0940 Polyethylene Glycol 17 GM DAILY 05/23 1000 AC 05/23 PO 0941 Potassium Chloride 40 MEQ ONCE ONE 05/24 0645 CAN PO 05/24 0646 Potassium Chloride 40 MEQ ONCE ONE 05/24 0645 DC 05/24 PO 05/24 0646 0649 Potassium Chloride 20 MEQ Q13H 05/23 1000 AC 05/24 Dextrose/Sodium 1,000 ML IV 05/24 1159 0207 Chloride Propofol 1,000 MG Q24H 05/20 0615 AC 05/24 N/A 1 UNIT IV 0320
--- NOTE | 2017-05-24 12:28 | PN- Cardiology ---
Subjective Subjective: Awake, intubated Objective Vital Signs and I&Os Vital Signs Date Time Temp Pulse Resp B/P B/P Pulse O2 O2 Flow FiO2 Mean Ox Delivery Rate 05/24 1118 30 05/24 0857 30 05/24 0800 98.8 117 22 138/80 99 Ventilator 30% 05/24 0612 30 05/24 0543 118 117/67 05/24 0400 98 Ventilator 30% 05/24 0250 30 05/24 0124 30 05/24 0000 97.3 90 14 112/60 97 Ventilator 30% 05/24 0000 97 Ventilator 30% 05/23 2216 30 05/23 2143 112 119/59 05/23 2143 116 119/59 05/23 2000 97 Ventilator 30% 05/23 1854 30 05/23 1618 98.0 106 16 144/76 05/23 1604 30 05/23 1600 95 Ventilator 30% 05/23 1600 98.0 106 16 120/60 95 Ventilator 30% 05/23 1559 98.4 110 14 117/63 05/23 1408 30 Intake & Output 05/24 1600 05/24 0800 05/24 0000 05/23 1600 05/23 0800 05/23 0000 Intake Total 1330 1140 1025 1092 1019 Output Total 354 781 3023 451 418 Balance 1130 490 25 641 601 Intake, IV 784 268 389 3702 1019 Intake, Oral 0 0 0 Intake, Other 145 Intake, Tube 246 150 16 Feeding Intake, Tube 300 220 Irrigant Number 1 0 0 0 Bowel Movements Output, 50 0 Gastric Drainage Output, Urine 200 650 950 451 418 Patient 273 lb 270 lb Weight Weight Bed scale Bed scale Measurement Method Physical Exam: HEENT-PERRLA Neck-unable to assess JVP, right IJ in place Lungs-decreased BS at both bases Heart-S1S2 irregular Abdomen-soft, not tender, BS+,no organomegaly Extr-dermatitis, trace edema, diminished distal pulses neuro-non focal Current Medications: Current Medications Sig/Ric Start time Last Medication Dose Route Stop Time Status Admin Acetaminophen 650 MG Q6P PRN 05/19 299 AC PO Acetaminophen 1,000 MG Q6P PRN 05/19 030 AC IV Albumin Human 25 GM Q8H 05/24 0822 AC 05/24 IV 0950 Amiodarone HCl 400 MG Q8 05/23 1449 AC 05/24 PO 0543 Amiodarone HCl/ 360 MG Q6H 05/21 1100 DC 05/23 Dextrose IV 1559 N/A 1 UNIT Docusate Sodium 100 MG DAILY AC 05/23 0820 AC 05/24 PO 0543 Furosemide 20 MG ONCE ONE 05/24 1030 DC 05/24 IV 05/24 1031 1100 Glycerin/Mineral Oil 1 PEDRITO TID PRN 05/24 1100 AC TOP Hydrocortisone 100 MG Q8 05/19 1639 AC 05/24 Sodium Succinate IV 0514 Insulin Aspart 0 Q4H 05/21 1800 AC 05/24 SC 1013 Insulin Detemir 12 UNITS BID 05/24 1000 AC 05/24 SC 0950 Insulin Detemir 10 UNITS BID 05/21 1530 DC 05/23 SC 2208 Metoprolol Tartrate 50 MG BID 05/24 1000 AC 05/24 PO 0958 Metoprolol Tartrate 25 MG BID 05/23 1000 DC 05/23 PO 2143 Oxacillin Sodium 2,000 MG Q4 05/22 1400 AC 05/24 Sodium Chloride 100 ML IV 0951 Pantoprazole Sodium 40 MG DAILY 05/20 0030 AC 05/24 IV 0951 Polyethylene Glycol 17 GM DAILY 05/23 1000 AC 05/24 PO 0950 Potassium Chloride 40 MEQ ONCE ONE 05/24 0645 CAN PO 05/24 0646 Potassium Chloride 40 MEQ ONCE ONE 05/24 0645 DC 05/24 PO 05/24 0646 0649 Potassium Chloride 20 MEQ Q13H 05/23 1000 DC 05/24 Dextrose/Sodium 1,000 ML IV 05/24 1159 0207 Chloride Propofol 1,000 MG Q9H 05/24 1145 AC 05/24 N/A 1 UNIT IV 1200 Propofol 1,000 MG Q24H 05/20 0615 DC 05/24 N/A 1 UNIT IV 0320 Results Last 48 Hrs of Labs/Mics: Laboratory Tests 05/24/17 0610: pH 7.44, pCO2 31 L, pO2 89, HCO3 20 L, ABG O2 Sat (Measured) 96.0, P-50 (Temp Corrected) N, Carboxyhemoglobin 0.9 L, O2 Concentration % .30, Respiration Rate 14, O2 Delivery Method VENT, Vent Mode A/C, Expiratory Pressure 5, Tidal Volume 500, Phlebotomy Draw Site LEFT RADIAL 05/24/17 0400: Anion Gap 12, Estimated GFR 36 L, Glucose 196 H, Calcium 7.3 L, Phosphorus 3.8, Magnesium 1.9, Total Bilirubin 0.2, AST 13 L, ALT 39, Albumin 1.8 L, TSH 0.091 L, Free T4 0.96, PT 10.2, INR 0.97, APTT 28, Fibrinogen Activity 185 L, CBC w Diff NO MAN DIFF REQ, RBC 2.80 L, MCV 91.4, MCH 29.7, RDW 21.7 H, MPV 9.9, Gran % 91.9 H, Lymphocytes % 4.0 L, Monocytes % 4.0, Eosinophils % 0.1, Basophils % 0, Absolute Granulocytes 4.0, Absolute Lymphocytes 0.2 L, Absolute Monocytes 0.2, Absolute Eosinophils 0, Absolute Basophils 0, PUBS MCHC 32.5 L 05/23/17 0600: TSH &T3 &Free T4 Intrp Cancelled 05/23/17 0535: pH 7.50 H, pCO2 28 L, pO2 79 L, HCO3 22, ABG O2 Sat (Measured) 95.0 L, P-50 (Temp Corrected) Y, Carboxyhemoglobin 0.1 L, O2 Concentration % 30%, Temperature 98.0, Respiration Rate 14, O2 Delivery Method ESPRIT, Vent Mode AC, Expiratory Pressure 5, Tidal Volume 500, Phlebotomy Draw Site LEFT RADIAL 05/23/17 0347: Anion Gap 9, Estimated GFR 33 L, Glucose 154 H, Calcium 7.4 L, Phosphorus 3.8 , Magnesium 2.0, Total Bilirubin 0.2, AST 15, ALT 36, Albumin 1.7 L, Free T4 0.82 L, Total T3 0.45 L, TSH &T3 &Free T4 Intrp 0.121 L, PT 10.8, INR 1.03, APTT 28, Fibrinogen Activity 219, D-Dimer High Sensitivty 1609 H, CBC w Diff NO MAN DIFF REQ, RBC 2.57 L, MCV 91.6, MCH 29.8, RDW 21.7 H, MPV 9.1, Gran % 92.1 H, Lymphocytes % 4.0 L, Monocytes % 3.7, Eosinophils % 0.1, Basophils % 0.1, Absolute Granulocytes 3.8, Absolute Lymphocytes 0.2 L, Absolute Monocytes 0.2, Absolute Eosinophils 0, Absolute Basophils 0, PUBS MCHC 32.6 L, Digoxin 1.4 05/22/172057: CBC w Diff NO MAN DIFF REQ, RBC 2.64 L, MCV 91.7, MCH 29.2, RDW 21.0 H, MPV 9.0, Gran % 92.3 H, Lymphocytes % 3.5 L, Monocytes % 3.7, Eosinophils % 0.4, Basophils % 0.1, Absolute Granulocytes 5.1, Absolute Lymphocytes 0.2 L, Absolute Monocytes 0.2, Absolute Eosinophils 0, Absolute Basophils 0, PUBS MCHC 31.8 L 05/22/17 1305: pH 7.49 H, pCO2 31 L, pO2 74 L, HCO3 23, ABG O2 Sat (Measured) 95.0 L, P-50 (Temp Corrected) YES, Carboxyhemoglobin 1.7, O2 Concentration % 35%, Temperature 97.6, Respiration Rate 14, O2 Delivery Method VENT, Vent Mode VC/AC, Expiratory Pressure 5, Tidal Volume 500, Phlebotomy Draw Site LEFT RADIAL 05/22/17 1300: CBC w Diff NO MAN DIFF REQ, RBC 2.76 L, MCV 91.9, MCH 29.5, RDW 21.4 H, MPV 8.8, Gran % 93.6 H, Lymphocytes % 2.7 L, Monocytes % 3.7, Eosinophils % 0, Basophils % 0, Absolute Granulocytes 6.8 H, Absolute Lymphocytes 0.2 L, Absolute Monocytes 0.3, Absolute Eosinophils 0, Absolute Basophils 0, PUBS MCHC 32.2 L Recent Imaging Studies: CXr-improved aeration Assessment/Plan Assessment/Plan 1. Acute hypoxic respiratory failure/septic shock secondary to MSSA PNA on Oxacillin CVP is 9, no evidence of CHF 2. Rapid atrial fibrillation. Rate better on oral Amio and higher dose of metoprolol 3. GARCÍA-creatinine improved 4.Thrombocytopenia/ITP, platelet count improved Plan: continue iv fluids (CVP 9) continue metoprolol 50 mg bid and amiodarone 400 mg tid weaning trials and ?extubation today (would not count HR as extubation parameter -she was tachycardic even when stable last month) Hopefully extubation today Continue telemetry? Yes
[2017-05-24 16:00] VITALS: BP 138/88
[2017-05-25] VITALS: BP 100/60
[2017-05-25 04:57] LABS: ABSOLUTE BASOPHIL COUNT 0 /CUMM (0.0-0.2); ABSOLUTE EOSINOPHIL COUNT 0 /CUMM (0.0-0.7); ABSOLUTE GRANULOCYTE CT 3.6 /CUMM (1.4-6.5); ABSOLUTE LYMPH COUNT 0.2 /CUMM (1.2-3.4); ABSOLUTE MONOCYTE COUNT 0.1 /CUMM (0.10-0.60); BASOPHIL % 0.1 % (0.0-2.0); EOSINOPHIL % 0.1 % (0-5); GRANULOCYTE % 91.1 % (42.2-75.2); HEMATOCRIT 25.2 % (37-47); MEAN CORPUSCULAR HGB 29.5 PG (27.0-31.0); MEAN CORPUSCULAR HGB CONC 32.2 G/DL (33.0-37.0); MEAN CORPUSCULAR VOLUME 91.8 FL (81.0-99.0); MEAN PLATELET VOLUME 10.6 FL (7.4-10.4); RBC DISTRIBUTION WIDTH 20.9 % (11.5-14.5); RED BLOOD CELL CT 2.75 /CUMM (4.20-5.40)
[2017-05-25 05:07] LABS: PT 11.1 SEC (9.4-12.5); PTT 28 SEC (25-37)
[2017-05-25 05:23] LABS: PLATELET COUNT 62 /CUMM (130-400)
--- NOTE | 2017-05-25 07:27 | RADIOLOGY REPORT ---
EXAMINATION: XR PORTABLE CHEST CLINICAL INFORMATION: Intubated. COMPARISON: 05/24/2017 TECHNIQUE: Portable AP erect view of the chest was obtained. FINDINGS: Endotracheal tube tip terminates 4.3 cm above the krystal. The enteric tube is below the diaphragm in stomach. There is a right jugular central line with its tip at the atrial caval junction. Both lungs are hypoexpanded with bibasilar haziness slightly greater on the left. Underlying effusion/atelectasis is suspected. The upper lungs are clear. The heart size is enlarged with normal pulmonary vascularity. IMPRESSION: Hypoexpanded lungs with bibasilar haziness greater on the left. Suspect underlying effusion/atelectasis. Support lines and catheters are in satisfactory position. No major change from 05/24/2017 chest x-ray.
[2017-05-25 08:00] VITALS: BP 108/60
--- NOTE | 2017-05-25 08:44 | PN- Resident CRCU ---
Subjective HPI/CRCU Issues: Atrial Fibrilliation Hypotension Acute Hypoxic Respiratory Failure 24 Hour Events: Patient is seen and examined this morning, awake and alert,responding to verbal commands(opening her eyes and does not appear to be in distress, currently ventilated with low dose of propofol 10 mcgs. Patient could not be extubated yesterday, will try to taper off the propofol and give another weaning trial today. Vitals are currently stable, no overnight events on the monitor patient has been off metoprolol since yesterday. As per cardiology recommendation, we'll switch her back to metoprolol 50 mg twice a day. Objective Vital Signs & I&O Last 8 Hrs of Vitals and I&O: Vital Signs Date Time Temp Pulse Resp B/P B/P Pulse O2 O2 Flow FiO2 Mean Ox Delivery Rate 05/25 0913 30 05/25 0800 100 Ventilator 30% 05/25 0800 96.9 96 14 108/60 94 Ventilator 30% 05/25 0559 30 05/25 0524 103 110/68 05/25 0407 30 05/25 0400 100 Ventilator 30% 05/25 0138 30 05/25 0000 98 Ventilator 30% 05/25 0000 97.0 104 15 100/60 98 Ventilator 30% 05/24 2330 114 134/77 05/24 2158 30 05/24 2104 99 113/55 05/24 2000 96 Ventilator 30% 05/24 1844 30 05/24 1646 30 05/24 1600 97 Ventilator 30% 05/24 1600 97.6 110 26 138/88 96 Ventilator 30% 05/24 1419 30 05/24 1200 98 Ventilator 30% 05/24 1118 30 Intake & Output 05/25 1600 05/25 0800 05/25 0000 Intake Total 1219 1152 Output Total 320 300 Balance 899 852 Intake, IV 457 453 Intake, Oral 0 Intake, Tube 502 439 Feeding Intake, Tube 260 260 Irrigant Number 0 1 Bowel Movements Output, Urine 320 300 Patient 274 lb Weight Weight Bed scale Measurement Method Exam General Appearance: well developed/nourished, no apparent distress, awake Head: atraumatic, normal appearance Ears, Nose, Throat: normal pharynx, normal ENT inspection Neck: normal inspection, supple Respiratory: normal breath sounds, chest non-tender Cardiovascular: regular rate/rhythm, edema Gastrointestinal: normal bowel sounds, soft, non-tender Extremities: normal inspection, normal capillary refill, normal range of motion Cranial Nerves: normal hearing, normal speech Skin: intact, normal color, warm/dry Skin Temp/Moisture Exam: Warm/Dry Weaning Parameters NIF: 23 Minute Volume: 9.17 Resp rate: 25 Vt: 367 Heart Rate: 102 Weaning Schedule Start Time: 1256 Minute Volume: 10.0 Resp Rate: 22 Vt: 455 Heart Rate: 96 End Time: 1417 Minute Volume: 9.63 Resp Rate: 33 Vt: 292 Heart Rate: 123 Current Medications: Current Medications Sig/Ric Start time Last Medication Dose Route Stop Time Status Admin Acetaminophen 650 MG Q6P PRN 05/19 0300 AC PO Acetaminophen 1,000 MG Q6P PRN 05/19 0300 AC IV Albumin Human 25 GM Q8H 05/24 0822 05/26 IV 0856 Amiodarone HCl 200 MG Q8 05/26 1400 AC PO Amiodarone HCl 400 MG Q8 05/23 1449 DC 05/26 PO 0509 Apixaban 2.5 MG BID 05/26 1000 AC PO Docusate Sodium 100 MG DAILY AC 05/23 0820 05/25 PO 0523 Furosemide 40 MG ONCE ONE 05/26 0745 VA 05/26 IV 05/26 0746 0856 Glycerin/Mineral Oil 1 PEDRITO TID PRN 05/24 1100 AC TOP Hydrocortisone 100 MG Q8 05/19 1639 AC 05/26 Sodium Succinate IV 0509 Insulin Aspart 0 Q4H 05/21 1800 AC 05/26 SC 0614 Insulin Detemir 14 UNITS BID 05/26 1000 SC Insulin Detemir 12 UNITS BID 05/24 1000 DC 05/25 SC 2238 Metoprolol Tartrate 50 MG BID 05/25 1000 05/25 PO 2224 Oxacillin Sodium 2,000 MG Q4 05/22 1400 AC 05/26 Sodium Chloride 100 ML IV 0510 Pantoprazole Sodium 40 MG DAILY 05/20 0030 05/26 IV 0856 Polyethylene Glycol 17 GM DAILY 05/23 1000 AC 05/24 PO 0950 Propofol 1,000 MG Q9H 05/24 1145 AC 05/26 N/A 1 UNIT IV 0253 Impression/Plan Impression/Problem List Impression: Impression: 86 year old woman with past medical history of hypertension, hyperlipidemia, MD s/p PCI with stent, diabetes mellitus, and restless leg syndrome, history of atrial fibrillation with anticoagulation on hold due to severe thrombocytopenia was sent in from extended care facility for hypoxia, leukocytosis and productive cough. She was admitted on telemetry floor and transfered to ICU yesterday after patient desaturated became unresponsive. Assessment and Plan: Acute hypoxic respiratory failure likely secondary to HCAP: * Her white count has normalized and she's been afebrile. Her sputum culture is growing MSSA. * Continue Oxacillin 2g q4 * Currently intubated with FiO2 of 35%. * ID recs appreciated. * A trial of weaning will attempted again today. Per cardiology, her heart rate should not be a limiting parameter for extubation. * As per ID recommendations we'll consider removing right IJ triple-lumen catheter tomorrow. If peripheral access is difficult we'll consider placing a PICC line. Atrial Fibrilliation with Hypotension: * Blood pressure much more stable now. * Continue with metoprolol at 50mg BID. * Digoxin has been discontinued. * Continue with oral Amiodarone 400mg TID. * AC on hold due to thrombocytopenia * Echo - Normal left ventricular ejection fraction visually estimated at > 60% .Currently off fluids and Levophed , her pressure has been stable Immune Thrombocytopenia: * Platelet count improved to 62 today * Previously responded to oral Prednisone. She was on high dose 150mg/day * Currently on IV Hydrocortisone 100mg q8. Will continue. * Daily CBC * s/p 1 unit transfusion of platelets 05/22. 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 * Her fibrinogen has been decreasing each day. Will follow for another day. GARCÍA on CKD: * Cr improving. Currently 1.3 * Was likely contrast induced nephropathy * Will continue IVF with one more bag. * Will give her one dose of IV lasix 20mg for fluid overload. * Nephro recs appreciated. * Strict I&Os. Diabetes Mellitus: * Currently receiving tube feeds. * Levemir 12mg BID * Insulin SS medium dose. Lower Extremity Skin Changes: * Was evaluated by vascular surgery. Recommend no surgical intervention at this time. History of restless leg syndrome: * Sinemet was recently discontinued * Lyrica on hold currently. * Lubriderm to affected skin. DVT Prophylaxis: ALPS Code: Problem List: 1. Pneumonia 2. A-fib 3. Thrombocytopenia Pain Ratin Tomorrow's Labs & Rationales: cbc and icu bundle Plan DVT/Prophylaxis: mechanical
--- NOTE | 2017-05-25 09:22 | PN- Diabetes ---
Assessment/Plan Assessment: The patient remains intubated and sedated on a respirator. She is requiring less oxygen. She was started on 12 units of Levemir twice a day yesterday along with sliding scale NovoLog every 4 hours. The patient is on Glucerna 1.2 presently at 65 mL/ h. The patient's blood sugar in the lab at 4:13 AM was 188 and her creatinine is down to 1.3. Her most recent blood sugars by fingerstick are 229 and 232. The patient has abnormal thyroid function tests. Thyroid function tests done this morning reveal a TSH of 0.075 to a free T4 of 0.97. Most likely this is sick euthyroid. The patient's body temperature was normal and she does not have bradycardia. She is on drugs that can affect her thyroid function. A high iodine load from the amiodarone can inhibit the release of thyroid hormone but gradually her thyroid gland will overcome this effect. In addition steroids can lower the TSH. Plan: Suggest increase the patient's Levemir to 14 units twice a day. Also we can increase the patient's sliding scale NovoLog every 4 hours. Sliding scale NovoLog every 4 hours should be 80-150 give no insulin, 150-200 give 6 units NovoLog, 201-250 give 8 units NovoLog, 251-300 give 10 units NovoLog, 301-350 give 12 units NovoLog, 351-400 give 14 units NovoLog. The patient's thyroid tests continue to show evidence of sick euthyroid and the effects of medicine on her thyroid function tests. The patient's platelets improved today to 62,000 and her creatinine is down to 1.3. Subjective Subjective: Patient is intubated and sedated Objective Last 24 Hrs of Vital Signs/I&O Vital Signs Date Time Temp Pulse Resp B/P B/P Pulse O2 O2 Flow FiO2 Mean Ox Delivery Rate 05/25 0913 30 05/25 0800 100 Ventilator 30% 05/25 0800 96.9 96 14 108/60 94 Ventilator 30% 05/25 0559 30 05/25 0524 103 110/68 05/25 0407 30 05/25 0400 100 Ventilator 30% 05/25 0138 30 05/25 0000 98 Ventilator 30% 05/25 0000 97.0 104 15 100/60 98 Ventilator 30% 05/24 2330 114 134/77 05/24 2158 30 05/24 2104 99 113/55 01/20 2000 96 Ventilator 30% 05/24 1844 30 05/24 1646 30 05/24 1600 97 Ventilator 30% 05/24 1600 97.6 110 26 138/88 96 Ventilator 30% 05/24 1419 30 05/24 1200 98 Ventilator 30% 05/24 1118 30 Intake & Output 05/25 1600 05/25 0800 05/25 0000 Intake Total 1219 1152 Output Total 320 300 Balance 899 852 Intake, IV 457 453 Intake, Oral 0 Intake, Tube 502 439 Feeding Intake, Tube 260 260 Irrigant Number 0 1 Bowel Movements Output, Urine 320 300 Patient 274 lb Weight Weight Bed scale Measurement Method Vital Signs Date Time Temp Pulse Resp B/P B/P Pulse O2 O2 Flow FiO2 Mean Ox Delivery Rate 05/25 0913 30 05/25 0800 100 Ventilator 30% 05/25 0800 96.9 96 14 108/60 94 Ventilator 30% 05/25 0559 30 05/25 0524 103 110/68 05/25 0407 30 05/25 0400 100 Ventilator 30% 05/25 0138 30 05/25 0000 98 Ventilator 30% 05/25 0000 97.0 104 15 100/60 98 Ventilator 30% 05/24 2330 114 134/77 05/24 2158 30 05/24 2104 99 113/55 05/24 1999 96 Ventilator 30% 05/24 1844 30 05/24 1646 30 05/24 1600 97 Ventilator 30% 05/24 1600 97.6 110 26 138/88 96 Ventilator 30% 05/24 1419 30 05/24 1200 98 Ventilator 30% 05/24 1118 30 Intake & Output 05/25 1600 05/25 0800 05/25 0000 Intake Total 1219 1152 Output Total 320 300 Balance 899 852 Intake, IV 457 453 Intake, Oral 0 Intake, Tube 502 439 Feeding Intake, Tube 260 260 Irrigant Number 0 1 Bowel Movements Output, Urine 320 300 Patient 274 lb Weight Weight Bed scale Measurement Method Physical Exam General Appearance: awake Head: normal appearance Neck: normal inspection Respiratory: normal breath sounds Cardiovascular: regular rate/rhythm Abdomen: normal bowel sounds, soft Extremities: swelling (both arms) Current Medications: Current Medications Sig/Ric Start time Last Medication Dose Route Stop Time Status Admin Acetaminophen 650 MG Q6P PRN 05/19 299 AC PO Acetaminophen 1,000 MG Q6P PRN 01/15 0300 AC IV Albumin Human 25 GM Q8H 05/24 0822 AC 05/25 IV 0751 Amiodarone HCl 400 MG Q8 05/23 1449 AC 05/25 PO 0524 Docusate Sodium 100 MG DAILY AC 05/23 0820 AC 05/25 PO 0523 Furosemide 20 MG ONCE ONE 05/24 1030 DC 05/24 IV 05/24 1031 1100 Glycerin/Mineral Oil 1 PEDRITO TID PRN 05/24 1100 AC TOP Hydrocortisone 100 MG Q8 05/19 1639 AC 05/25 Sodium Succinate IV 0525 Insulin Aspart 0 Q4H 05/21 1800 AC 05/25 SC 0526 Insulin Detemir 12 UNITS BID 05/24 1000 05/24 SC 2118 Metoprolol Tartrate 50 MG ONCE ONE 05/24 2330 DC 05/24 PO 05/24 2331 2330 Metoprolol Tartrate 50 MG BID 05/24 1000 DC 05/24 PO 0958 Metoprolol Tartrate 25 MG .STK-MED ONE 05/24 0957 DC PO 05/24 0958 Metoprolol Tartrate 25 MG BID 05/23 1000 DC 05/23 PO 2143 Oxacillin Sodium 2,000 MG Q4 05/22 1400 AC 05/25 Sodium Chloride 100 ML IV 0523 Pantoprazole Sodium 40 MG DAILY 05/20 0030 AC 05/24 IV 0951 Polyethylene Glycol 17 GM DAILY 05/23 1000 AC 05/24 PO 0950 Potassium Chloride 20 MEQ Q1H 05/25 0645 DC 05/25 IV 05/25 0746 0838 Potassium Chloride 20 MEQ Q13H 05/23 1000 DC 05/24 Dextrose/Sodium 1,000 ML IV 05/24 1159 0207 Chloride Propofol 1,000 MG Q9H 05/24 1145 05/25 N/A 1 UNIT IV 0523 Propofol 1,000 MG Q24H 05/20 0615 DC 05/24 N/A 1 UNIT IV 0320 Findings Pertinent Lab/Silvano Results: Laboratory Tests 05/25 05/25 05/24 0440 0445 2014 Blood Gas pH (7.35 - 7.45 PH) 7.45 pCO2 (35 - 45 TORR) 34 L pO2 (80 - 100 TORR) 96 HCO3 (21 - 28 MEQ/L) 23 ABG O2 Sat (Measured) (>96.0 %) 96.0 P-50 (Temp Corrected) Y Carboxyhemoglobin (1.5 - 5.0 %) 0.2 L O2 Concentration % 30% Temperature (97.0 - 100.0 FARH) 98.3 Respiration Rate (BPM) 14 O2 Delivery Method ESPRIT Vent Mode AC Expiratory Pressure (CMH2O/P) 5 Tidal Volume (CC) 500 Chemistry Sodium (137 - 145 mmol/L) 146 H Potassium (3.5 - 5.1 mmol/L) 3.1 L Chloride (98 - 107 mmol/L) 108 H Carbon Dioxide (22 - 30 mmol/L) 26 Anion Gap (5 - 16) 12 BUN (7 - 17 mg/dL) 48 H Creatinine (0.5 - 1.0 mg/dL) 1.3 H Estimated GFR (>60 ml/min) 39 L Glucose (65 - 99 mg/dL) 188 H Calcium (8.4 - 10.2 mg/dL) 7.5 L Phosphorus (2.5 - 4.5 mg/dL) 3.2 Magnesium (1.6 - 2.3 mg/dL) 1.9 Total Bilirubin (0.2 - 1.3 mg/dL) 0.3 AST (14 - 36 U/L) 9 L ALT (9 - 52 U/L) 36 Albumin (3.5 - 5.0 g/dL) 2.4 L TSH (0.270 - 4.200 uIU/mL) 0.075 L Free T4 (0.85 - 1.93 ng/dL) 0.97 Total T3 (0.97 - 1.69 ng/mL) 0.39 L Coagulation PT (9.4 - 12.5 SEC) 11.1 INR (0.90 - 1.19) 1.06 APTT (25 - 37 SEC) 28 Fibrinogen Activity (200 - 393 MG/DL) 175 L Hematology CBC w Diff NO MAN DIFF REQ WBC (4.8 - 10.8 /CUMM) 4.0 L RBC (4.20 - 5.40 /CUMM) 2.75 L Hgb (12.0 - 16.0 G/DL) 8.1 L Hct (37 - 47 %) 25.2 L MCV (81.0 - 99.0 FL) 91.8 MCH (27.0 - 31.0 PG) 29.5 RDW (11.5 - 14.5 %) 20.9 H Plt Count (130 - 400 /CUMM) 62 L MPV (7.4 - 10.4 FL) 10.6 H Gran % (42.2 - 75.2 %) 91.1 H Lymphocytes % (20.5 - 51.1 %) 5.3 L Monocytes % (1.7 - 9.3 %) 3.4 Eosinophils % (0 - 5 %) 0.1 Basophils % (0.0 - 2.0 %) 0.1 Absolute Granulocytes (1.4 - 6.5 /CUMM) 3.6 Absolute Lymphocytes (1.2 - 3.4 /CUMM) 0.2 L Absolute Monocytes (0.10 - 0.60 /CUMM) 0.1 Absolute Eosinophils (0.0 - 0.7 /CUMM) 0 Absolute Basophils (0.0 - 0.2 /CUMM) 0 PUBS MCHC (33.0 - 37.0 G/DL) 32.2 L Miscellaneous Ref Lab Test Result Pending Phlebotomy Draw Site LEFT RADIAL
--- NOTE | 2017-05-25 09:28 | PN- CRCU ---
Subjective HPI/Critical Care Issues: The patient tolerated weaning trials yesterday however her volumes dropped and she was placed back on mechanical ventilation. He remains on low-dose propofol. She is lethargic but following commands. She is not offering any complaints. She had no overnight events reported. Objective Current Medications: Current Medications Sig/Ric Start time Last Medication Dose Route Stop Time Status Admin Acetaminophen 650 MG Q6P PRN 05/19 0300 AC PO Acetaminophen 1,000 MG Q6P PRN 05/19 0300 AC IV Albumin Human 25 GM Q8H 05/24 0822 05/25 IV 0751 Amiodarone HCl 400 MG Q8 05/23 1449 AC 05/25 PO 0524 Docusate Sodium 100 MG DAILY AC 05/23 0820 AC 05/25 PO 0523 Furosemide 20 MG ONCE ONE 05/24 1030 DC 05/24 IV 05/24 1031 1100 Glycerin/Mineral Oil 1 PEDRITO TID PRN 05/24 1100 AC TOP Hydrocortisone 100 MG Q8 05/19 1639 AC 05/25 Sodium Succinate IV 0525 Insulin Aspart 0 Q4H 05/21 1800 AC 05/25 SC 0526 Insulin Detemir 12 UNITS BID 05/24 1000 05/24 SC 2118 Metoprolol Tartrate 50 MG ONCE ONE 05/24 2330 DC 05/24 PO 05/24 2331 2330 Metoprolol Tartrate 50 MG BID 05/24 1000 DC 05/24 PO 0958 Metoprolol Tartrate 25 MG .STK-MED ONE 05/24 0957 DC PO 05/24 0958 Metoprolol Tartrate 25 MG BID 05/23 1000 WA 05/23 PO 2143 Oxacillin Sodium 2,000 MG Q4 05/22 1400 AC 05/25 Sodium Chloride 100 ML IV 0523 Pantoprazole Sodium 40 MG DAILY 05/20 0030 05/24 IV 0951 Polyethylene Glycol 17 GM DAILY 05/23 1000 AC 05/24 PO 0950 Potassium Chloride 20 MEQ Q1H 05/25 0645 DC 05/25 IV 05/25 0746 0838 Potassium Chloride 20 MEQ Q13H 05/23 1000 DC 05/24 Dextrose/Sodium 1,000 ML IV 05/24 1159 0207 Chloride Propofol 1,000 MG Q9H 05/24 1145 AC 05/25 N/A 1 UNIT IV 0523 Propofol 1,000 MG Q24H 05/20 0615 DC 05/24 N/A 1 UNIT IV 0320 Vital Signs & I&O Last 24 Hrs of Vitals and I&O: Vital Signs Date Time Temp Pulse Resp B/P B/P Pulse O2 O2 Flow FiO2 Mean Ox Delivery Rate 05/25 0913 30 05/25 0800 100 Ventilator 30% 05/25 0800 96.9 96 14 108/60 94 Ventilator 30% 05/25 0559 30 05/25 0524 103 110/68 05/25 0407 30 05/25 0400 100 Ventilator 30% 05/25 0138 30 05/25 0000 98 Ventilator 30% 05/25 0000 97.0 104 15 100/60 98 Ventilator 30% 05/24 2330 114 134/77 05/24 2158 30 05/24 2104 99 113/55 05/24 2000 96 Ventilator 30% 05/24 1844 30 05/24 1646 30 05/24 1600 97 Ventilator 30% 05/24 1600 97.6 110 26 138/88 96 Ventilator 30% 05/24 1419 30 05/24 1200 98 Ventilator 30% 05/24 1118 30 Intake & Output 05/25 1600 05/25 0800 05/25 0000 Intake Total 1219 1152 Output Total 320 300 Balance 899 852 Intake, IV 457 453 Intake, Oral 0 Intake, Tube 502 439 Feeding Intake, Tube 260 260 Irrigant Number 0 1 Bowel Movements Output, Urine 320 300 Patient 274 lb Weight Weight Bed scale Measurement Method Exam General Appearance: awake, sedated, intubated, mild distress Head: atraumatic, normal appearance Ears, Nose, Throat: OG tube Neck: supple Respiratory: normal breath sounds, chest non-tender Cardiovascular: irregularly irregular Gastrointestinal: soft, non-tender Extremities: stasis skin changes Skin: stasis skin changes Skin Temp/Moisture Exam: Warm/Dry Sepsis Skin Exam (color): Normal for Ethnicity Results Last 24 Hrs of Lab Results: Laboratory Tests 05/25/17 0440: pH 7.45, pCO2 34 L, pO2 96, HCO3 23, ABG O2 Sat (Measured) 96.0, P-50 (Temp Corrected) Y, Carboxyhemoglobin 0.2 L, O2 Concentration % 30%, Temperature 98.3 , Respiration Rate 14, O2 Delivery Method ESPRIT, Vent Mode AC, Expiratory Pressure 5, Tidal Volume 500, Phlebotomy Draw Site LEFT RADIAL 05/25/17 8585: Anion Gap 12, Estimated GFR 39 L, Glucose 188 H, Calcium 7.5 L, Phosphorus 3.2, Magnesium 1.9, Total Bilirubin 0.3, AST 9 L, ALT 36, Albumin 2.4 L, TSH 0.075 L, Free T4 0.97, Total T3 0.39 L, PT 11.1, INR 1.06, APTT 28, Fibrinogen Activity 175 L, CBC w Diff NO MAN DIFF REQ, RBC 2.75 L, MCV 91.8, MCH 29.5, RDW 20.9 H, MPV 10.6 H, Gran % 91.1 H, Lymphocytes % 5.3 L, Monocytes % 3.4, Eosinophils % 0.1, Basophils % 0.1, Absolute Granulocytes 3.6, Absolute Lymphocytes 0.2 L, Absolute Monocytes 0.1, Absolute Eosinophils 0, Absolute Basophils 0, PUBS MCHC 32.2 L 05/24/172014: Ref Lab Test Result Pending Last 24 Hrs of Micro Results: Sputum from 05/20/2017 is positive for yeast and S. aureus. Diagnostic Data CXR Findings: Hypoexpanded lungs with bibasilar haziness greater on the left. Suspect underlying effusion/atelectasis. Support lines and catheters are in satisfactory position. No major change from 05/24/2017 chest x-ray. Impression/Plan Impression/Plan Impression/Plan: 1. Resolved septic shock. 2. Atrial fibrillation with rapid ventricular response, cardiology following. 3. Acute hypoxemic respiratory failure, remains mechanically ventilated. 4. Acute kidney injury, improved with rehydration. 5. Morbid obesity. 6. Chronic thrombocytopenia. 7. Chronic anemia without evidence of bleeding. The patient's H&H has dropped over time. 8. Electrolyte abnormalities. Recommendations: -SBT/CPAP trials to continue, will extubate if parameters are acceptable -antibiotic therapy per ID (on oxacillin) -cardiology, ID f/u -potassium repletion underway -f/u hematology recommendations, stress steroids can be tapered per heme -endocrinology appreciated -nephrology consultation appreciated -DVT/GI prophylaxis at all times -Discussed plan of care with house staff -Continue to monitor closely in the critical care unit
--- NOTE | 2017-05-25 09:43 | PN- Infect Dx ---
Subjective Subjective: Afebrile on steroids. She does not report any complaints. Objective Last 24 Hrs of Vital Signs/I&O Vital Signs Date Time Temp Pulse Resp B/P B/P Pulse O2 O2 Flow FiO2 Mean Ox Delivery Rate 05/25 0913 30 05/25 0800 100 Ventilator 30% 05/25 0800 96.9 96 14 108/60 94 Ventilator 30% 05/25 0559 30 05/25 0524 103 110/68 05/25 0407 30 05/25 0400 100 Ventilator 30% 05/25 0138 30 05/25 0000 98 Ventilator 30% 05/25 0000 97.0 104 15 100/60 98 Ventilator 30% 05/24 2330 114 134/77 05/24 2158 30 05/24 2104 99 113/55 05/24 2000 96 Ventilator 30% 05/24 1844 30 05/24 1646 30 05/24 1600 97 Ventilator 30% 05/24 1600 97.6 110 26 138/88 96 Ventilator 30% 05/24 1419 30 05/24 1200 98 Ventilator 30% 05/24 1118 30 Intake & Output 05/25 1600 05/25 0800 05/25 0000 Intake Total 1219 1152 Output Total 320 300 Balance 899 852 Intake, IV 457 453 Intake, Oral 0 Intake, Tube 502 439 Feeding Intake, Tube 260 260 Irrigant Number 0 1 Bowel Movements Output, Urine 320 300 Patient 274 lb Weight Weight Bed scale Measurement Method Physical Exam Other Physical Findings: She is awake and alert on the ventilator in no acute distress Neck right IJ triple-lumen catheter remains in place with no inflammation at the site Lungs bilateral rhonchi Heart regular rhythm with no murmur Abdomen is obese, soft, nontender with positive bowel sounds Extremities chronic venous stasis changes both lower extremities Faust catheter remains in place Results Last 24 Hours of Lab Results: Laboratory Tests 05/25 05/25 05/24 0440 1145 2014 Blood Gas pH (7.35 - 7.45 PH) 7.45 pCO2 (35 - 45 TORR) 34 L pO2 (80 - 100 TORR) 96 HCO3 (21 - 28 MEQ/L) 23 ABG O2 Sat (Measured) (>96.0 %) 96.0 P-50 (Temp Corrected) Y Carboxyhemoglobin (1.5 - 5.0 %) 0.2 L O2 Concentration % 30% Temperature (97.0 - 100.0 FARH) 98.3 Respiration Rate (BPM) 14 O2 Delivery Method ESPRIT Vent Mode AC Expiratory Pressure (CMH2O/P) 5 Tidal Volume (CC) 500 Chemistry Sodium (137 - 145 mmol/L) 146 H Potassium (3.5 - 5.1 mmol/L) 3.1 L Chloride (98 - 107 mmol/L) 108 H Carbon Dioxide (22 - 30 mmol/L) 26 Anion Gap (5 - 16) 12 BUN (7 - 17 mg/dL) 48 H Creatinine (0.5 - 1.0 mg/dL) 1.3 H Estimated GFR (>60 ml/min) 39 L Glucose (65 - 99 mg/dL) 188 H Calcium (8.4 - 10.2 mg/dL) 7.5 L Phosphorus (2.5 - 4.5 mg/dL) 3.2 Magnesium (1.6 - 2.3 mg/dL) 1.9 Total Bilirubin (0.2 - 1.3 mg/dL) 0.3 AST (14 - 36 U/L) 9 L ALT (9 - 52 U/L) 36 Albumin (3.5 - 5.0 g/dL) 2.4 L TSH (0.270 - 4.200 uIU/mL) 0.075 L Free T4 (0.85 - 1.93 ng/dL) 0.97 Total T3 (0.97 - 1.69 ng/mL) 0.39 L Coagulation PT (9.4 - 12.5 SEC) 11.1 INR (0.90 - 1.19) 1.06 APTT (25 - 37 SEC) 28 Fibrinogen Activity (200 - 393 MG/DL) 175 L Hematology CBC w Diff NO MAN DIFF REQ WBC (4.8 - 10.8 /CUMM) 4.0 L RBC (4.20 - 5.40 /CUMM) 2.75 L Hgb (12.0 - 16.0 G/DL) 8.1 L Hct (37 - 47 %) 25.2 L MCV (81.0 - 99.0 FL) 91.8 MCH (27.0 - 31.0 PG) 29.5 RDW (11.5 - 14.5 %) 20.9 H Plt Count (130 - 400 /CUMM) 62 L MPV (7.4 - 10.4 FL) 10.6 H Gran % (42.2 - 75.2 %) 91.1 H Lymphocytes % (20.5 - 51.1 %) 5.3 L Monocytes % (1.7 - 9.3 %) 3.4 Eosinophils % (0 - 5 %) 0.1 Basophils % (0.0 - 2.0 %) 0.1 Absolute Granulocytes (1.4 - 6.5 /CUMM) 3.6 Absolute Lymphocytes (1.2 - 3.4 /CUMM) 0.2 L Absolute Monocytes (0.10 - 0.60 /CUMM) 0.1 Absolute Eosinophils (0.0 - 0.7 /CUMM) 0 Absolute Basophils (0.0 - 0.2 /CUMM) 0 PUBS MCHC (33.0 - 37.0 G/DL) 32.2 L Miscellaneous Ref Lab Test Result Pending Phlebotomy Draw Site LEFT RADIAL Last 24 Hours of Silvano Results: No new cultures Recent Imaging Studies: Chest x-ray May 25 reveals bibasilar haziness, left greater than right Assessment/Plan Impression: Stable, with overall improvement in her respiratory status, though she remains ventilator dependent, with bibasilar haziness on chest x-ray, suggestive of possible fluid overload, with her I's greater than her O's, though she is not felt to be in CHF. She remains afebrile with her white blood cell count normal (on steroids) on Oxacillin, Day 7 of treatment for MSSA pneumonia. Her renal failure continues to improve, her platelet count is increasing and her H&H remains stable. Suggestion: 1. Would remove right IJ triple-lumen catheter and pursue placement of a PICC in the a.m. if unable to obtain peripheral access 2. Further management of her fluid status per Cardiology 3. Continue Oxacillin
[2017-05-25 16:00] VITALS: BP 110/62
[2017-05-25 22:00] VITALS: BP 118/78
[2017-05-26 05:24] LABS: ABSOLUTE BASOPHIL COUNT 0 /CUMM (0.0-0.2); ABSOLUTE EOSINOPHIL COUNT 0 /CUMM (0.0-0.7); ABSOLUTE LYMPH COUNT 0.2 /CUMM (1.2-3.4); ABSOLUTE MONOCYTE COUNT 0 /CUMM (0.10-0.60); BASOPHIL % 0 % (0.0-2.0); EOSINOPHIL % 0.2 % (0-5); HEMATOCRIT 24.2 % (37-47); MEAN CORPUSCULAR HGB 30.1 PG (27.0-31.0); MEAN CORPUSCULAR HGB CONC 32.8 G/DL (33.0-37.0); MEAN CORPUSCULAR VOLUME 92.1 FL (81.0-99.0); MEAN PLATELET VOLUME 10.3 FL (7.4-10.4); PLATELET COUNT 91 /CUMM (130-400); RBC DISTRIBUTION WIDTH 21.1 % (11.5-14.5); RED BLOOD CELL CT 2.63 /CUMM (4.20-5.40); WHITE BLOOD CELL COUNT 5.2 /CUMM (4.8-10.8)
[2017-05-26 05:48] LABS: GRANULOCYTE % 95.4 % (42.2-75.2)
--- NOTE | 2017-05-26 07:12 | PN- Resident CRCU ---
[facility] RAMOS,[facility]12: Subjective HPI/CRCU Issues: Atrial Fibrilliation Hypotension Acute Hypoxic Respiratory Failure 24 Hour Events: Patient was seen and examined at bedside. A trial of weaning was attempted which was followed by successful extubation. Patien is awake, alert. Currently on aerosol mask with 30% O2. A swallow evaluation will be pursued tomorrow. Objective Vital Signs & I&O Last 8 Hrs of Vitals and I&O: . Exam General Appearance: alert, awake, anxious, mild distress Head: atraumatic, normal appearance Ears, Nose, Throat: normal ENT inspection Neck: supple Respiratory: normal breath sounds, chest non-tender Cardiovascular: irregularly irregular Gastrointestinal: soft, non-tender Extremities: stasis skin changes Cranial Nerves: normal hearing Skin: stasis skin changes Skin Temp/Moisture Exam: Warm/Dry Sepsis Skin Exam (color): Normal for Ethnicity Weaning Parameters NIF: 23 Minute Volume: 10.1 Resp rate: 28 Vt: 355 Heart Rate: 105 Weaning Schedule Start Time: 1650 Minute Volume: 10.9 Resp Rate: 28 Vt: 355 Heart Rate: 105 End Time: 1850 Minute Volume: 11 Resp Rate: 29 Vt: 351 Heart Rate: 109 Current Medications: Current Medications Sig/Ric Start time Last Medication Dose Route Stop Time Status Admin Acetaminophen 650 MG Q6P PRN 05/19 0300 AC PO Acetaminophen 1,000 MG Q6P PRN 05/19 0300 AC IV Albumin Human 25 GM Q8H 05/24 0822 AC 05/26 IV 0856 Amiodarone HCl 200 MG Q8 05/26 1400 AC PO Amiodarone HCl 400 MG Q8 05/23 1449 DC 05/26 PO 0509 Apixaban 2.5 MG BID 05/26 1000 AC 05/26 PO 1150 Dextrose/Sodium 1,000 ML Q13H 05/26 1415 AC Chloride IV Docusate Sodium 100 MG DAILY AC 05/23 0820 AC 05/25 PO 0523 Furosemide 40 MG ONCE ONE 05/26 0745 DC 05/26 IV 05/26 0746 0856 Glycerin/Mineral Oil 1 PEDRITO TID PRN 05/24 1100 AC TOP Hydrocortisone 100 MG Q8 05/19 1639 AC 05/26 Sodium Succinate IV 0509 Insulin Aspart 0 Q4H 05/21 1800 AC 05/26 SC 1151 Insulin Detemir 14 UNITS BID 05/26 1000 AC 05/26 SC 1147 Insulin Detemir 12 UNITS BID 05/24 1000 DC 05/25 SC 2238 Metoprolol Tartrate 50 MG BID 05/25 1000 AC 05/26 PO 1149 Oxacillin Sodium 2,000 MG Q4 05/22 1400 AC 05/26 Sodium Chloride 100 ML IV 1147 Pantoprazole Sodium 40 MG DAILY 05/20 0030 AC 05/26 IV 0856 Polyethylene Glycol 17 GM DAILY 05/23 1000 AC 05/26 PO 1149 Propofol 1,000 MG Q9H 05/24 1145 AC 05/26 N/A 1 UNIT IV 0253 Impression/Plan Impression/Problem List Impression: 86 year old woman with past medical history of hypertension, hyperlipidemia, [place] s/p PCI with stent, diabetes mellitus, and restless leg syndrome, history of atrial fibrillation with anticoagulation on hold due to severe thrombocytopenia was sent in from [facility] care facility for hypoxia, leukocytosis and productive cough. She was admitted on telemetry floor and transfered to ICU after patient desaturated became unresponsive. Assessment and Plan: Acute hypoxic respiratory failure likely secondary to HCAP: * Her white count has normalized and she's been afebrile. Her sputum culture is growing MSSA. * Continue Oxacillin 2g q4 * Successfully extubated today. Currently on aerosol mask with 30% O2. * ID recs appreciated. Atrial Fibrilliation with Hypotension: * Blood pressure much more stable now. * Will continue metoprolol at 50mg BID. * Reduced oral Amiodarone to 200mg TID. * AC restarted with Elliquis 2.5mg BID. * Will continue IVF with D5-1/2NS @ 75ml/hr. * Levophed was discontinued on 05/20 as blood pressure had been stable. * Echo - Normal left ventricular ejection fraction visually estimated at > 60% . Immune Thrombocytopenia: * Previously responded to oral Prednisone. She was on high dose 150mg/day * Currently on IV Hydrocortisone 100mg q8. Will continue. * Her platelets have improved to 91K today. Anticoagulation has been restarted. * Daily CBC * s/p 1 unit transfusion of platelets 05/22. 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 * Her fibrinogen has been decreasing each day. Will keep following. * Recommendation to transfuse with cryoprecipitate if fibrinogen falls below 100. * IVIG and transfusion if acutely bleeding GARCÍA on CKD: * Cr improving. Currently 1.0 * Was likely contrast induced nephropathy * Will give her one dose of IV lasix 40mg for fluid overload. * Nephro recs appreciated. * Strict I&Os. * Diabetes Mellitus: * Currently receiving tube feeds. * Levemir 14mg BID * Insulin SS medium dose. Adjusted per Endo's recommendations. Lower Extremity Skin Changes: * Was evaluated by vascular surgery. Recommend no surgical intervention at this time. History of restless leg syndrome: * Sinemet was recently discontinued * Lyrica on hold currently. * Lubriderm to affected skin. DVT Prophylaxis: ALPS Code: Full Problem List: 1. Atrial fibrillation with RVR Pain Ratin Tomorrow's Labs & Rationales: CBC, ICU bundle, DIC panel Plan DVT/Prophylaxis: Jordi Trujillo MD 05/26/17 0958: Attending MD Review Statement Attending Sign Off Attending Cosign Statement: I have: examined this patient, reviewed [employer] EMR data, personally reviewd images, discussd w/resident/PA/HEAD FILTER PRESS TENDER, discussed mgmt plan w/ida, discussed mgmt plan w/CM, discussed mgmt plan w/pt, agreed w/resident/PA/HEAD FILTER PRESS TENDER, amended to note. Other Findings: Impression 86 year old woman * resoloved septic shock * a.fib RVR * acute hypoxemic respiratory failure * GARCÍA improved Plan -SBT/CPAP trial today, awake -abx per ID - Oxacillin -cardiology, ID f/u -f/u hematology recommendations, stress steroids can be tapered per heme -endocrinology appreciated -nephrology consultation appreciated DVT prophylaxis at all times TTS 35 min
--- NOTE | 2017-05-26 07:28 | PN- Cardiology ---
Subjective Subjective: Patient is still intubated, awake Objective Vital Signs and I&Os Vital Signs Date Time Temp Pulse Resp B/P B/P Pulse O2 O2 Flow FiO2 Mean Ox Delivery Rate 05/26 0501 30 05/26 0400 99 Ventilator 30% 05/26 0158 30 05/26 0000 98 Ventilator 30% 05/25 2223 30 05/25 2200 97.6 86 15 118/78 98 Ventilator 30% 05/25 2000 99 Ventilator 30% 05/25 1846 30 05/25 1640 30 05/25 1600 96 Ventilator 30% 05/25 1600 97.2 100 18 110/62 99 Ventilator 30% 05/25 1521 96 100/50 05/25 1426 30 05/25 1301 30 05/25 1200 98 Ventilator 30% 05/25 1021 115 140/80 05/25 0913 30 05/25 0800 100 Ventilator 30% 05/25 0800 96.9 96 14 108/60 94 Ventilator 30% Intake & Output 05/26 0800 05/26 0000 05/25 1600 05/25 0800 05/25 0000 05/24 1600 Intake Total 1195 5647 233 5930 1152 1452 Output Total 350 350 350 320 300 600 Balance 845 741 551 899 852 852 Intake, IV 475 311 387 457 453 712 Intake, Oral 0 0 0 Intake, Other 80 Intake, Tube 520 520 434 502 439 420 Feeding Intake, Tube 200 260 260 260 320 Irrigant Number 1 1 2 0 1 1 Bowel Movements Output, Urine 350 350 350 320 300 600 Patient 278 lb 274 lb Weight Weight Bed scale Measurement Method Physical Exam: HEENT-PERRLA\ Neck-unable to assess JVP, no bruits Lungs-decreased BS at both bases Abdomen-soft, not tender, BS+, no organomegaly Extr-chronic severe dermatitis, diminshed distal pulses, 1+ edema Neuro-non focal Current Medications: Current Medications Sig/Ric Start time Last Medication Dose Route Stop Time Status Admin Acetaminophen 650 MG Q6P PRN 05/19 299 AC PO Acetaminophen 1,000 MG Q6P PRN 05/19 299 AC IV Albumin Human 25 GM Q8H 05/24 08 AC 05/26 IV 0022 Amiodarone HCl 400 MG Q8 05/23 1449 AC 05/26 PO 0509 Docusate Sodium 100 MG DAILY AC 01/19 0820 AC 05/25 PO 0523 Glycerin/Mineral Oil 1 PEDRITO TID PRN 05/24 1100 AC TOP Hydrocortisone 100 MG Q8 05/19 1639 AC 05/26 Sodium Succinate IV 0509 Insulin Aspart 0 Q4H 05/21 1800 AC 05/26 SC 0614 Insulin Detemir 12 UNITS BID 05/24 1000 AC 05/25 SC 2238 Metoprolol Tartrate 50 MG BID 05/25 1000 AC 05/25 PO 2224 Oxacillin Sodium 2,000 MG Q4 05/22 1400 AC 05/26 Sodium Chloride 100 ML IV 0510 Pantoprazole Sodium 40 MG DAILY 05/20 0030 AC 05/25 IV 1021 Polyethylene Glycol 17 GM DAILY 05/23 1000 AC 05/24 PO 0950 Potassium Chloride 20 MEQ Q1H 05/25 0645 DC 05/25 IV 05/25 0746 0838 Propofol 1,000 MG Q9H 05/24 1145 AC 05/26 N/A 1 UNIT IV 0253 Results Last 48 Hrs of Labs/Mics: Laboratory Tests 05/26/17 0500: Anion Gap 11, Estimated GFR 53 L, Glucose 211 H, Calcium 7.5 L, Phosphorus 2.6, Magnesium 2.0, Total Bilirubin 0.2, AST 11 L, ALT 36, Albumin 2.6 L, Triglycerides 156 H, Cholesterol < 50, LDL Cholesterol, Calc 7 L, HDL Cholesterol 12 L, Cholesterol/HDL Ratio , CBC w Diff NO MAN DIFF REQ, RBC 2.63 L, MCV 92.1, MCH 30.1, RDW 21.1 H, MPV 10.3, Gran % 95.4 H, Lymphocytes % 3.9 L, Monocytes % 0.5 L, Eosinophils % 0.2, Basophils % 0, Absolute Granulocytes 5.0, Absolute Lymphocytes 0.2 L, Absolute Monocytes 0 L, Absolute Eosinophils 0, Absolute Basophils 0, PUBS MCHC 32.8 L 05/25/17 1855: pH 7.41, pCO2 38, pO2 84, HCO3 24, ABG O2 Sat (Measured) 95.0 L, P-50 (Temp Corrected) Y, Carboxyhemoglobin 0.3 L, O2 Concentration % 40%, Temperature 97.6 , O2 Delivery Method VENT, Vent Mode CPAP, Expiratory Pressure 5, Pressure Support 6, Phlebotomy Draw Site RIGHT RADIAL 05/25/17 0440: pH 7.45, pCO2 34 L, pO2 96, HCO3 23, ABG O2 Sat (Measured) 96.0, P-50 (Temp Corrected) Y, Carboxyhemoglobin 0.2 L, O2 Concentration % 30%, Temperature 98.3 , Respiration Rate 14, O2 Delivery Method ESPRIT, Vent Mode AC, Expiratory Pressure 5, Tidal Volume 500, Phlebotomy Draw Site LEFT RADIAL 05/25/17 0415: Anion Gap 12, Estimated GFR 39 L, Glucose 188 H, Calcium 7.5 L, Phosphorus 3.2, Magnesium 1.9, Total Bilirubin 0.3, AST 9 L, ALT 36, Albumin 2.4 L, TSH 0.075 L, Free T4 0.97, Total T3 0.39 L, PT 11.1, INR 1.06, APTT 28, Fibrinogen Activity 175 L, CBC w Diff NO MAN DIFF REQ, RBC 2.75 L, MCV 91.8, MCH 29.5, RDW 20.9 H, MPV 10.6 H, Gran % 91.1 H, Lymphocytes % 5.3 L, Monocytes % 3.4, Eosinophils % 0.1, Basophils % 0.1, Absolute Granulocytes 3.6, Absolute Lymphocytes 0.2 L, Absolute Monocytes 0.1, Absolute Eosinophils 0, Absolute Basophils 0, PUBS MCHC 32.2 L 05/24/17 2015: Ref Lab Test Result Pending Recent Imaging Studies: Tely-AF 80-110 bpm Assessment/Plan Assessment/Plan 1. Acute hypoxic respiratory failure/septic shock secondary to MSSA PNA on Oxacillin Unable to wean off. She may as well be volume overloaded-received large amounts of iv fluids, weight increased 20 lbs since admission. 2. Rapid atrial fibrillation. Rate better on oral Amio and higher dose of metoprolol 3. GARCÍA-creatinine improved 4.Thrombocytopenia/ITP, platelet count significantly improved Plan: trial of Lasix 40 mg ivx1 repeat CXR continue metoprolol 50 mg bid decrease amiodarone to 200 mg tid weaning trials restart Eliquis 2.5 mg bid Continue telemetry? Yes
--- NOTE | 2017-05-26 07:36 | PN- Hematology ---
Subjective Subjective: She remains afebrile. She continues to be in atrial fibrillation. She denies any pain. She remains intubated. Review of Systems: Limited due to intubation. Review of Systems Musculoskeletal: Denies: back pain, joint pain. All Other Systems: Reviewed and Negative Objective Vital Signs and I&Os Vital Signs Date Time Temp Pulse Resp B/P B/P Pulse O2 O2 Flow FiO2 Mean Ox Delivery Rate 05/26 0501 30 05/26 0400 99 Ventilator 30% 05/26 0158 30 05/26 0000 98 Ventilator 30% 05/25 2223 30 05/25 2200 97.6 86 15 118/78 98 Ventilator 30% 05/25 2000 99 Ventilator 30% 05/25 1846 30 05/25 1640 30 05/25 1600 96 Ventilator 30% 05/25 1600 97.2 100 18 110/62 99 Ventilator 30% 05/25 1521 96 100/50 05/25 1426 30 05/25 1301 30 05/25 1200 98 Ventilator 30% 05/25 1021 115 140/80 05/25 0913 30 05/25 0800 100 Ventilator 30% 05/25 0800 96.9 96 14 108/60 94 Ventilator 30% Intake & Output 05/26 0800 05/26 0000 05/25 1600 05/25 0800 05/25 0000 05/24 1600 Intake Total 1195 5427 214 3994 1152 1452 Output Total 350 350 350 320 300 600 Balance 845 741 551 899 852 852 Intake, IV 475 311 387 457 453 712 Intake, Oral 0 0 0 Intake, Other 80 Intake, Tube 520 520 434 502 439 420 Feeding Intake, Tube 200 260 260 260 320 Irrigant Number 1 1 2 0 1 1 Bowel Movements Output, Urine 350 350 350 320 300 600 Patient 125.872 kg 124.313 kg Weight Weight Bed scale Measurement Method Physical Exam: General Appearance: sedated, intubated Ears, Nose, Throat: ET tube in place Respiratory: chest non-tender, crackles, respiratory distress, on ventilator, FiO2 30% Cardiovascular: tachycardia, irregularly irregular Abdomen: normal bowel sounds, soft, non-tender Extremities: bilateral upper extremity 2+ edema, ecchymoses in upper extremities , worse on right, hyperpigmented lower extremities Neurologic/Psychiatric: intubated, arousable Current Medications: Current Medications Sig/Ric Start time Last Medication Dose Route Stop Time Status Admin Acetaminophen 650 MG Q6P PRN 05/19 0300 AC PO Acetaminophen 1,000 MG Q6P PRN 05/19 0300 AC IV Albumin Human 25 GM Q8H 05/24 0822 05/26 IV 0022 Amiodarone HCl 400 MG Q8 05/23 1449 AC 05/26 PO 0509 Docusate Sodium 100 MG DAILY AC 05/23 0820 AC 05/25 PO 0523 Glycerin/Mineral Oil 1 PEDRITO TID PRN 05/24 1100 AC TOP Hydrocortisone 100 MG Q8 05/19 1639 AC 05/26 Sodium Succinate IV 0509 Insulin Aspart 0 Q4H 05/21 1800 AC 05/26 SC 0614 Insulin Detemir 12 UNITS BID 05/24 1000 AC 05/25 SC 2238 Metoprolol Tartrate 50 MG BID 05/25 1000 AC 05/25 PO 2224 Oxacillin Sodium 2,000 MG Q4 05/22 1400 AC 05/26 Sodium Chloride 100 ML IV 0510 Pantoprazole Sodium 40 MG DAILY 05/20 0030 AC 05/25 IV 1021 Polyethylene Glycol 17 GM DAILY 05/23 1000 AC 05/24 PO 0950 Potassium Chloride 20 MEQ Q1H 05/25 0645 DC 05/25 IV 05/25 0746 0838 Propofol 1,000 MG Q9H 05/24 1145 AC 05/26 N/A 1 UNIT IV 0253 Results Last 24 Hours of Lab Results: Laboratory Tests 05/26 05/25 0500 1855 Blood Gas pH (7.35 - 7.45 PH) 7.41 pCO2 (35 - 45 TORR) 38 pO2 (80 - 100 TORR) 84 HCO3 (21 - 28 MEQ/L) 24 ABG O2 Sat (Measured) (>96.0 %) 95.0 L P-50 (Temp Corrected) Y Carboxyhemoglobin (1.5 - 5.0 %) 0.3 L O2 Concentration % 40% Temperature (97.0 - 100.0 FARH) 97.6 O2 Delivery Method VENT Vent Mode CPAP Expiratory Pressure (CMH2O/P) 5 Pressure Support (CMH2O/P) 6 Chemistry Sodium (137 - 145 mmol/L) 147 H Potassium (3.5 - 5.1 mmol/L) 3.5 Chloride (98 - 107 mmol/L) 109 H Carbon Dioxide (22 - 30 mmol/L) 27 Anion Gap (5 - 16) 11 BUN (7 - 17 mg/dL) 45 H Creatinine (0.5 - 1.0 mg/dL) 1.0 Estimated GFR (>60 ml/min) 53 L Glucose (65 - 99 mg/dL) 211 H Calcium (8.4 - 10.2 mg/dL) 7.5 L Phosphorus (2.5 - 4.5 mg/dL) 2.6 Magnesium (1.6 - 2.3 mg/dL) 2.0 Total Bilirubin (0.2 - 1.3 mg/dL) 0.2 AST (14 - 36 U/L) 11 L ALT (9 - 52 U/L) 36 Albumin (3.5 - 5.0 g/dL) 2.6 L Triglycerides (<150 mg/dL) 156 H Cholesterol (<200 MG/DL) < 50 LDL Cholesterol, Calc (65 - 129 mg/dL) 7 L HDL Cholesterol (40 - 60 mg/dL) 12 L Cholesterol/HDL Ratio (0.00 - 4.23 %) Hematology CBC w Diff NO MAN DIFF REQ WBC (4.8 - 10.8 /CUMM) 5.2 RBC (4.20 - 5.40 /CUMM) 2.63 L Hgb (12.0 - 16.0 G/DL) 7.9 L Hct (37 - 47 %) 24.2 L MCV (81.0 - 99.0 FL) 92.1 MCH (27.0 - 31.0 PG) 30.1 RDW (11.5 - 14.5 %) 21.1 H Plt Count (130 - 400 /CUMM) 91 L MPV (7.4 - 10.4 FL) 10.3 Gran % (42.2 - 75.2 %) 95.4 H Lymphocytes % (20.5 - 51.1 %) 3.9 L Monocytes % (1.7 - 9.3 %) 0.5 L Eosinophils % (0 - 5 %) 0.2 Basophils % (0.0 - 2.0 %) 0 Absolute Granulocytes (1.4 - 6.5 /CUMM) 5.0 Absolute Lymphocytes (1.2 - 3.4 /CUMM) 0.2 L Absolute Monocytes (0.10 - 0.60 /CUMM) 0 L Absolute Eosinophils (0.0 - 0.7 /CUMM) 0 Absolute Basophils (0.0 - 0.2 /CUMM) 0 PUBS MCHC (33.0 - 37.0 G/DL) 32.8 L Miscellaneous Phlebotomy Draw Site RIGHT RADIAL Assessment/Plan Assessment/Recommendations: Ms. Christine is an 86-year-old female with chronic ITP, HTN, HLD, NM s/p PCI with stent, DM, and atrial fibrillation who presented with new hypoxia and cough. She has been having new cough a few days ago. CTA demonstrated moderate atelectasis/consolidation in the left upper and lower lobes. There was mild right base atelectasis and moderate left and axsee-in-[id number] right pleural effusions. She was briefly in shock and required Levophed. She is being treated for MSSA pneumonia with oxallicin. She is on stress dose steroid. Platelet count is improving. She required 1 unit platelet transfusion on 05/22. She seems to be responding after treatment of underlying infection and improving clinical condition. She is still edematous. Renal function has improved. Anemia is stable. She should be continued on current steroid dosing. This may be tapered once platelet count is >100,000. She should go on prednisone 1.5 mg/ kg or equivalent. Acute hypoxic respiratory failure with shock likely from MSSA pneumonia: -management as per ICU -infectious disease following -currently on oxallicin Chronic ITP: -continue hydrocortisone 100 mg every 8 hours, can taper slowly once plt >100, 000 -continues to monitor the fibrinogen and PT/PTT Daily -transfuse with cryo if fibrinogen <100 -IVIG and transfusion if acutely bleeding Atrial fibrillation with RVR: -cardiology following -amiodarone and metoprolol GARCÍA: -nephrology following -monitor for now -resolved Please call [phone] with any questions or concerns. Problem List: 1. Atrial fibrillation with RVR 2. Chronic anemia 3. Thrombocytopenia
--- NOTE | 2017-05-26 07:44 | PN- Diabetes ---
Assessment/Plan Assessment: The patient remains intubated and sedated on a respirator. It was recommended yesterday that we should increase her dose of Levemir to 14 units twice a day. Her sliding scale NovoLog every 4 hours was also adjusted. However the orders were not picked up. The patient is on Glucerna 1.2 presently at 65 mL/h. The patient's blood sugars are running somewhat high. Her most recent blood sugars are 183, 169, 222, and 250. The patient remains on hydrocortisone 100 mg IV every 8 hours. Her platelet count has improved to 91,000. Her serum sodium is still high at 147 and her creatinine is 1.0. The patient has abnormal thyroid function tests. Thyroid function tests done this morning reveal a TSH of 0.075 to a free T4 of 0.97. Most likely this is sick euthyroid. The patient's body temperature was normal and she does not have bradycardia. She is on drugs that can affect her thyroid function. A high iodine load from the amiodarone can inhibit the release of thyroid hormone but gradually her thyroid gland will overcome this effect. In addition steroids can lower the TSH. Plan: Suggest increase the Levemir and sliding scale NovoLog every 4 hours as recommended yesterday. We will observe her sugars today before making further adjustments. Adjust the patient's free water flushes to help bring down her serum sodium. Subjective Subjective: Opens her eyes and nods to questions Objective Last 24 Hrs of Vital Signs/I&O Vital Signs Date Time Temp Pulse Resp B/P B/P Pulse O2 O2 Flow FiO2 Mean Ox Delivery Rate 05/26 0501 30 05/26 0400 99 Ventilator 30% 05/26 0158 30 05/26 0000 98 Ventilator 30% 05/25 2223 30 05/25 2200 97.6 86 15 118/78 98 Ventilator 30% 05/25 2000 99 Ventilator 30% 05/25 1846 30 05/25 1640 30 05/25 1600 96 Ventilator 30% 05/25 1600 97.2 100 18 110/62 99 Ventilator 30% 05/25 1521 96 100/50 05/25 1426 30 05/25 1301 30 05/25 1200 98 Ventilator 30% 05/25 1021 115 140/80 05/25 0913 30 05/25 0800 100 Ventilator 30% 05/25 0800 96.9 96 14 108/60 94 Ventilator 30% Intake & Output 05/26 0800 05/26 0000 05/25 1600 Intake Total 1195 1091 901 Output Total 350 350 350 Balance 845 741 551 Intake, IV 475 311 387 Intake, Oral 0 0 Intake, Other 80 Intake, Tube 520 520 434 Feeding Intake, Tube 200 260 Irrigant Number 1 1 2 Bowel Movements Output, Urine 350 350 350 Patient 278 lb Weight Vital Signs Date Time Temp Pulse Resp B/P B/P Pulse O2 O2 Flow FiO2 Mean Ox Delivery Rate 05/26 0501 30 05/26 0400 99 Ventilator 30% 05/26 0158 30 05/26 0000 98 Ventilator 30% 05/25 2223 30 05/25 2200 97.6 86 15 118/78 98 Ventilator 30% 05/25 2000 99 Ventilator 30% 05/25 1846 30 05/25 1640 30 05/25 1600 96 Ventilator 30% 05/25 1600 97.2 100 18 110/62 99 Ventilator 30% 05/25 1521 96 100/50 05/25 1426 30 05/25 1301 30 05/25 1200 98 Ventilator 30% 05/25 1021 115 140/80 05/25 0913 30 05/25 0800 100 Ventilator 30% 05/25 0800 96.9 96 14 108/60 94 Ventilator 30% Intake & Output 05/26 0800 05/26 0000 05/25 1600 Intake Total 1195 1091 901 Output Total 350 350 350 Balance 845 741 551 Intake, IV 475 311 387 Intake, Oral 0 0 Intake, Other 80 Intake, Tube 520 520 434 Feeding Intake, Tube 200 260 Irrigant Number 1 1 2 Bowel Movements Output, Urine 350 350 350 Patient 278 lb Weight Physical Exam General Appearance: sedated, intubated Head: normal appearance Respiratory: normal breath sounds Cardiovascular: regular rate/rhythm Abdomen: normal bowel sounds Extremities: swelling Current Medications: Current Medications Sig/Ric Start time Last Medication Dose Route Stop Time Status Admin Acetaminophen 650 MG Q6P PRN 05/19 0300 AC PO Acetaminophen 1,000 MG Q6P PRN 05/19 030 AC IV Albumin Human 25 GM Q8H 05/24 0822 AC 05/26 IV 0022 Amiodarone HCl 200 MG Q8 05/26 1400 UNVr PO Amiodarone HCl 400 MG Q8 05/23 1449 DC 05/26 PO 0509 Apixaban 2.5 MG BID 05/26 1000 UNVr PO Docusate Sodium 100 MG DAILY AC 05/23 0820 AC 05/25 PO 0523 Furosemide 40 MG ONCE ONE 05/26 0745 UNVr IV 05/26 0746 Glycerin/Mineral Oil 1 PEDRITO TID PRN 05/24 1100 AC TOP Hydrocortisone 100 MG Q8 05/19 1639 AC 05/26 Sodium Succinate IV 0509 Insulin Aspart 0 Q4H 05/21 1800 r 05/26 SC 0614 Insulin Detemir 14 UNITS BID 05/26 1000 UNVr SC Insulin Detemir 12 UNITS BID 05/24 1000 DC 05/25 SC 2238 Metoprolol Tartrate 50 MG BID 05/25 1000 AC 05/25 PO 2224 Oxacillin Sodium 2,000 MG Q4 05/22 1400 AC 05/26 Sodium Chloride 100 ML IV 0510 Pantoprazole Sodium 40 MG DAILY 05/20 0030 AC 05/25 IV 1021 Polyethylene Glycol 17 GM DAILY 05/23 1000 AC 05/24 PO 0950 Propofol 1,000 MG Q9H 05/24 1145 AC 05/26 N/A 1 UNIT IV 0253 Findings Pertinent Lab/Silvano Results: Laboratory Tests 05/26 05/25 0500 1855 Blood Gas pH (7.35 - 7.45 PH) 7.41 pCO2 (35 - 45 TORR) 38 pO2 (80 - 100 TORR) 84 HCO3 (21 - 28 MEQ/L) 24 ABG O2 Sat (Measured) (>96.0 %) 95.0 L P-50 (Temp Corrected) Y Carboxyhemoglobin (1.5 - 5.0 %) 0.3 L O2 Concentration % 40% Temperature (97.0 - 100.0 FARH) 97.6 O2 Delivery Method VENT Vent Mode CPAP Expiratory Pressure (CMH2O/P) 5 Pressure Support (CMH2O/P) 6 Chemistry Sodium (137 - 145 mmol/L) 147 H Potassium (3.5 - 5.1 mmol/L) 3.5 Chloride (98 - 107 mmol/L) 109 H Carbon Dioxide (22 - 30 mmol/L) 27 Anion Gap (5 - 16) 11 BUN (7 - 17 mg/dL) 45 H Creatinine (0.5 - 1.0 mg/dL) 1.0 Estimated GFR (>60 ml/min) 53 L Glucose (65 - 99 mg/dL) 211 H Calcium (8.4 - 10.2 mg/dL) 7.5 L Phosphorus (2.5 - 4.5 mg/dL) 2.6 Magnesium (1.6 - 2.3 mg/dL) 2.0 Total Bilirubin (0.2 - 1.3 mg/dL) 0.2 AST (14 - 36 U/L) 11 L ALT (9 - 52 U/L) 36 Albumin (3.5 - 5.0 g/dL) 2.6 L Triglycerides (<150 mg/dL) 156 H Cholesterol (<200 MG/DL) < 50 LDL Cholesterol, Calc (65 - 129 mg/dL) 7 L HDL Cholesterol (40 - 60 mg/dL) 12 L Cholesterol/HDL Ratio (0.00 - 4.23 %) Hematology CBC w Diff NO MAN DIFF REQ WBC (4.8 - 10.8 /CUMM) 5.2 RBC (4.20 - 5.40 /CUMM) 2.63 L Hgb (12.0 - 16.0 G/DL) 7.9 L Hct (37 - 47 %) 24.2 L MCV (81.0 - 99.0 FL) 92.1 MCH (27.0 - 31.0 PG) 30.1 RDW (11.5 - 14.5 %) 21.1 H Plt Count (130 - 400 /CUMM) 91 L MPV (7.4 - 10.4 FL) 10.3 Gran % (42.2 - 75.2 %) 95.4 H Lymphocytes % (20.5 - 51.1 %) 3.9 L Monocytes % (1.7 - 9.3 %) 0.5 L Eosinophils % (0 - 5 %) 0.2 Basophils % (0.0 - 2.0 %) 0 Absolute Granulocytes (1.4 - 6.5 /CUMM) 5.0 Absolute Lymphocytes (1.2 - 3.4 /CUMM) 0.2 L Absolute Monocytes (0.10 - 0.60 /CUMM) 0 L Absolute Eosinophils (0.0 - 0.7 /CUMM) 0 Absolute Basophils (0.0 - 0.2 /CUMM) 0 PUBS MCHC (33.0 - 37.0 G/DL) 32.8 L Miscellaneous Phlebotomy Draw Site RIGHT RADIAL
[2017-05-26 08:00] VITALS: BP 118/62
--- NOTE | 2017-05-26 10:05 | RADIOLOGY REPORT ---
EXAMINATION: CR PORTABLE CHEST CLINICAL INFORMATION: Intubated. COMPARISON: Chest x-ray dated 05/25/2017 and multiple older exams. TECHNIQUE: Portable AP semierect view of the chest was obtained. FINDINGS: Endotracheal tube tip approximately 5.8 cm above the krystal. Enteric tube courses into the abdomen with tip not included. Right jugular central venous line tip is at the cavoatrial junction. Cardiomediastinal silhouette appears enlarged though is suboptimally assessed due to patient rotation. There is a moderate size left-sided pleural effusion and probable small right-sided pleural effusion. Bibasilar opacities are seen, unchanged. No pneumothorax is present. No pulmonary edema is seen. Degenerative changes as seen in the spine. Right shoulder tacks are seen, likely from prior rotator cuff surgery. IMPRESSION: 1. Limited exam due to patient rotation. Findings consistent with bilateral pleural effusions, larger on the left side than the right with associated bibasilar consolidation, unchanged when allowing for differences in technique. 2. Endotracheal tube tip 5.8 cm above the krystal. 3. Enteric tube courses into the abdomen with tip not included. 4. Right jugular central venous line tip at the cavoatrial junction.
--- NOTE | 2017-05-26 10:28 | PN- Infect Dx ---
Subjective Subjective: Afebrile on steroids. She offers no complaints. Objective Last 24 Hrs of Vital Signs/I&O Vital Signs Date Time Temp Pulse Resp B/P B/P Pulse O2 O2 Flow FiO2 Mean Ox Delivery Rate 05/26 0853 30 05/26 0501 30 05/26 0400 99 Ventilator 30% 05/26 0158 30 05/26 0000 98 Ventilator 30% 05/25 2223 30 05/25 2200 97.6 86 15 118/78 98 Ventilator 30% 05/25 2000 99 Ventilator 30% 05/25 1846 30 05/25 1640 30 05/25 1600 96 Ventilator 30% 05/25 1600 97.2 100 18 110/62 99 Ventilator 30% 05/25 1521 96 100/50 05/25 1426 30 05/25 1301 30 05/25 1200 98 Ventilator 30% Intake & Output 05/26 1600 05/26 0800 05/26 0000 Intake Total 1195 1091 Output Total 350 350 Balance 845 741 Intake, IV 475 311 Intake, Oral 0 0 Intake, Tube 520 520 Feeding Intake, Tube 200 260 Irrigant Number 1 1 Bowel Movements Output, Urine 350 350 Patient 278 lb Weight Physical Exam Other Physical Findings: She appears comfortable in no acute distress on the ventilator Neck right IJ triple-lumen catheter with no inflammation at the site Lungs scattered rhonchi bilaterally Heart irregular rhythm with no murmur Abdomen is obese, soft, nontender with positive bowel sounds Extremities chronic venous stasis changes both lower extremities Faust catheter remains in place Results Last 24 Hours of Lab Results: Laboratory Tests 05/26 05/25 0500 1855 Blood Gas pH (7.35 - 7.45 PH) 7.41 pCO2 (35 - 45 TORR) 38 pO2 (80 - 100 TORR) 84 HCO3 (21 - 28 MEQ/L) 24 ABG O2 Sat (Measured) (>96.0 %) 95.0 L P-50 (Temp Corrected) Y Carboxyhemoglobin (1.5 - 5.0 %) 0.3 L O2 Concentration % 40% Temperature (97.0 - 100.0 FARH) 97.6 O2 Delivery Method VENT Vent Mode CPAP Expiratory Pressure (CMH2O/P) 5 Pressure Support (CMH2O/P) 6 Chemistry Sodium (137 - 145 mmol/L) 147 H Potassium (3.5 - 5.1 mmol/L) 3.5 Chloride (98 - 107 mmol/L) 109 H Carbon Dioxide (22 - 30 mmol/L) 27 Anion Gap (5 - 16) 11 BUN (7 - 17 mg/dL) 45 H Creatinine (0.5 - 1.0 mg/dL) 1.0 Estimated GFR (>60 ml/min) 53 L Glucose (65 - 99 mg/dL) 211 H Calcium (8.4 - 10.2 mg/dL) 7.5 L Phosphorus (2.5 - 4.5 mg/dL) 2.6 Magnesium (1.6 - 2.3 mg/dL) 2.0 Total Bilirubin (0.2 - 1.3 mg/dL) 0.2 AST (14 - 36 U/L) 11 L ALT (9 - 52 U/L) 36 Albumin (3.5 - 5.0 g/dL) 2.6 L Triglycerides (<150 mg/dL) 156 H Cholesterol (<200 MG/DL) < 50 LDL Cholesterol, Calc (65 - 129 mg/dL) 7 L HDL Cholesterol (40 - 60 mg/dL) 12 L Cholesterol/HDL Ratio (0.00 - 4.23 %) Hematology CBC w Diff NO MAN DIFF REQ WBC (4.8 - 10.8 /CUMM) 5.2 RBC (4.20 - 5.40 /CUMM) 2.63 L Hgb (12.0 - 16.0 G/DL) 7.9 L Hct (37 - 47 %) 24.2 L MCV (81.0 - 99.0 FL) 92.1 MCH (27.0 - 31.0 PG) 30.1 RDW (11.5 - 14.5 %) 21.1 H Plt Count (130 - 400 /CUMM) 91 L MPV (7.4 - 10.4 FL) 10.3 Gran % (42.2 - 75.2 %) 95.4 H Lymphocytes % (20.5 - 51.1 %) 3.9 L Monocytes % (1.7 - 9.3 %) 0.5 L Eosinophils % (0 - 5 %) 0.2 Basophils % (0.0 - 2.0 %) 0 Absolute Granulocytes (1.4 - 6.5 /CUMM) 5.0 Absolute Lymphocytes (1.2 - 3.4 /CUMM) 0.2 L Absolute Monocytes (0.10 - 0.60 /CUMM) 0 L Absolute Eosinophils (0.0 - 0.7 /CUMM) 0 Absolute Basophils (0.0 - 0.2 /CUMM) 0 PUBS MCHC (33.0 - 37.0 G/DL) 32.8 L Miscellaneous Phlebotomy Draw Site RIGHT RADIAL Last 24 Hours of Silvano Results: No new cultures Recent Imaging Studies: Chest x-ray May 26 bilateral pleural effusions, left greater than right, with bibasilar densities unchanged Assessment/Plan Impression: Stable, with overall improvement in her respiratory status, though she remains ventilator dependent, with bibasilar haziness on chest x-ray, suggestive of possible fluid overload, with her I's greater than her O's, status post another dose of Lasix yesterday without significant diuresis. She remains afebrile with her white blood cell count normal (on steroids) on Oxacillin, Day 8 of treatment for MSSA pneumonia. Her renal failure continues to improve and her platelet count continues to rise. Suggestion: 1. Would remove right IJ triple-lumen catheter and pursue placement of a PICC if unable to obtain peripheral access 2. Further management of her fluid status per Cardiology 3. Continue Oxacillin
--- NOTE | 2017-05-26 14:00 | RADIOLOGY REPORT ---
EXAMINATION: XR PORTABLE CHEST CLINICAL INFORMATION: PICC placement. COMPARISON: 05/26/2017 TECHNIQUE: Portable frontal view of the chest was obtained. FINDINGS: The patient is significantly rotated to the left, limiting the study. Endotracheal tube remains in place, with positioning in relation to the krystal not well determined on this image. Enteric tube in place. There is a right-sided PICC line. Given the rotation of the study, position is difficult to accurately determine. This likely terminates near the cavoatrial junction. Right internal jugular central venous catheter also remains in place. Persistent diffuse opacity of the left hemithorax. Small right pleural effusion noted. No right-sided pneumothorax. The cardiomediastinal silhouette is not well evaluated. IMPRESSION: Significantly limited study. Right-sided PICC line now in place. Terminal positioning of the line is difficult to determine even the extent of patient rotation. This likely terminates near the cavoatrial junction. Remaining lines and tubes are without change. Persistent diffuse opacification of the left hemithorax likely representing a combination of pleural effusion with consolidation. Small right pleural effusion persists.
[2017-05-26 16:00] VITALS: BP 138/80
[2017-05-27] VITALS: BP 142/86
[2017-05-27 04:46] LABS: ABSOLUTE BASOPHIL COUNT 0 /CUMM (0.0-0.2); ABSOLUTE EOSINOPHIL COUNT 0 /CUMM (0.0-0.7); ABSOLUTE GRANULOCYTE CT 8.2 /CUMM (1.4-6.5); ABSOLUTE LYMPH COUNT 0.3 /CUMM (1.2-3.4); ABSOLUTE MONOCYTE COUNT 0.1 /CUMM (0.10-0.60); BASOPHIL % 0 % (0.0-2.0); EOSINOPHIL % 0 % (0-5); GRANULOCYTE % 94.9 % (42.2-75.2); HEMATOCRIT 28.4 % (37-47); MEAN CORPUSCULAR HGB 29.1 PG (27.0-31.0); MEAN CORPUSCULAR HGB CONC 31.7 G/DL (33.0-37.0); MEAN CORPUSCULAR VOLUME 91.8 FL (81.0-99.0); PLATELET COUNT 131 /CUMM (130-400); RED BLOOD CELL CT 3.09 /CUMM (4.20-5.40)
[2017-05-27 04:57] LABS: WHITE BLOOD CELL COUNT 8.6 /CUMM (4.8-10.8)
[2017-05-27 05:03] LABS: PT 12.3 SEC (9.4-12.5); PTT 32 SEC (25-37)
--- NOTE | 2017-05-27 07:29 | PN- Resident CRCU ---
Jaron RAMOS,[facility] 05/27/17 0729: Subjective HPI/CRCU Issues: Atrial Fibrilliation Hypotension Acute Hypoxic Respiratory Failure 24 Hour Events: Was successfully extubated yesterday and now on aerosol mask. Is able to swallow PO meds in apple sauce. Formal swallow evaluation pending. No acute events overnight. She has been hypertensive and her metoprolol has been increased. She is awake, alert this morning. Denies being in any discomfort but does mentions her throat being dry. Objective Vital Signs & I&O Last 8 Hrs of Vitals and I&O: . Exam General Appearance: no apparent distress, alert, awake, comfortable Head: atraumatic, normal appearance Ears, Nose, Throat: hearing grossly normal Respiratory: chest non-tender, rhonchi Cardiovascular: irregularly irregular Gastrointestinal: soft, non-tender Extremities: no edema Cranial Nerves: normal hearing, normal speech Skin: stasis skin changes Skin Temp/Moisture Exam: Warm/Dry Sepsis Skin Exam (color): Normal for Ethnicity Weaning Parameters NIF: 23 Minute Volume: 8.9 Resp rate: 25 Vt: 300 Heart Rate: 94 Weaning Schedule Start Time: 1025 Minute Volume: 9.6 Resp Rate: 27 Vt: 335 Heart Rate: 94 End Time: 1330 Minute Volume: 8.6 Resp Rate: 26 Vt: 300 Heart Rate: 90 Current Medications: Current Medications Sig/Ric Start time Last Medication Dose Route Stop Time Status Admin Acetaminophen 650 MG Q6P PRN 05/19 0300 AC PO Acetaminophen 1,000 MG Q6P PRN 05/19 0300 AC IV Albumin Human 25 GM Q8H 05/24 0822 AC 05/27 IV 0809 Albuterol Sulfate 3 ML ONCE ONE 05/27 0445 DC 05/27 INH 05/27 0446 0434 Alprazolam 0.25 MG ONCE ONE 05/27 1215 CAN PO 05/27 1216 Alprazolam 0.25 MG ONCE ONE 05/27 1015 DC 05/27 PO 05/27 1016 1023 Amiodarone HCl 200 MG Q8 05/26 1400 AC 05/27 PO 0508 Apixaban 2.5 MG BID 05/26 1000 AC 05/27 PO 0910 Dextrose/Sodium 1,000 ML Q13H 05/26 1415 AC 05/27 Chloride IV 0514 Docusate Sodium 100 MG DAILY AC 05/23 0820 AC 05/25 PO 0523 Furosemide 40 MG 0845 05/27 0845 DC 05/27 IV 05/27 0846 0850 Glycerin 2 SPRAY Q2P PRN 05/27 0800 AC PO Glycerin/Mineral Oil 1 PEDRITO TID PRN 05/24 1100 AC TOP Hydrocortisone 75 MG Q8 05/27 1400 CAN Sodium Succinate IV Hydrocortisone 100 MG Q8 05/19 1639 DC 05/27 Sodium Succinate IV 0509 Insulin Aspart 0 Q4H 05/21 1800 AC 05/27 SC 1024 Insulin Detemir 14 UNITS DAILY 05/27 1000 DC SC Insulin Detemir 7 UNITS DAILY 05/27 1000 AC 05/27 SC 1020 Insulin Detemir 10 UNITS BID 05/26 2200 DC SC Insulin Detemir 14 UNITS BID 05/26 2200 DC SC Insulin Detemir 14 UNITS BID 05/26 1000 DC 05/26 SC 1147 Metoprolol Tartrate 100 MG BID 05/27 1000 AC 05/27 PO 0910 Metoprolol Tartrate 50 MG BID 05/25 1000 DC 05/26 PO 2102 Oxacillin Sodium 2,000 MG Q4 05/22 1400 AC 05/27 Sodium Chloride 100 ML IV 1020 Pantoprazole Sodium 40 MG DAILY 05/20 0030 AC 05/27 IV 0911 Polyethylene Glycol 17 GM DAILY 05/23 1000 AC 05/26 PO 1149 Potassium Chloride 20 MEQ ONCE ONE 05/27 0915 DC 05/27 IV 05/27 0916 0934 Potassium Chloride 40 MEQ ONCE ONE 05/27 0845 DC 05/27 PO 05/27 0846 0850 Potassium Chloride 10 MEQ Q1H 05/27 0745 DC IV 05/27 0846 Prednisone 80 MG DAILY 05/27 1145 AC PO Propofol 1,000 MG Q9H 05/24 1145 DC 05/26 N/A 1 UNIT IV 0253 Impression/Plan Impression/Problem List Impression: 86 year old woman with past medical history of hypertension, hyperlipidemia, HI s/p PCI with stent, diabetes mellitus, and restless leg syndrome, history of atrial fibrillation with anticoagulation on hold due to severe thrombocytopenia was sent in from extended care facility for hypoxia, leukocytosis and productive cough. She was admitted on telemetry floor and transfered to ICU after patient desaturated became unresponsive. Assessment and Plan: Acute hypoxic respiratory failure likely secondary to HCAP: * Her white count has normalized and she's been afebrile. Her sputum culture is growing MSSA. * Antibiotics changed to IV Cefazolin 1gm q8. * Successfully extubated yesterday. Currently on aerosol mask with 30% O2. * ID recs appreciated. Atrial Fibrilliation with Hypotension: * She has been hypertensive now. Will be cautious with her antihypertensive regimen in order to avoid hypotension. * Will increase metoprolol to 100mg BID. * Continue oral Amiodarone at 200mg TID. * Continue Elliquis 2.5mg BID. * Will continue IVF with D5-1/2NS @ 75ml/hr. * Levophed was discontinued on 05/20 as blood pressure had been stable. * Echo - Normal left ventricular ejection fraction visually estimated at > 60% . Immune Thrombocytopenia: * Her platelets have improved to 131K today. * Hydrocortisone has been discontinued and she has been started on daily Prednisone 80mg. * Daily CBC * s/p 1 unit transfusion of platelets 05/22. 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 * Her fibrinogen has been decreasing each day. Will keep following. * Recommendation to transfuse with cryoprecipitate if fibrinogen falls below 100. * IVIG and transfusion if acutely bleeding GARCÍA on CKD: * Cr improved to 1.0. * Was likely contrast induced nephropathy * Will continue diuresis with IV lasix 40mg for fluid overload. * Nephro recs appreciated. * Strict I&Os. * Diabetes Mellitus: * Tube feeds were discontinued after OG tube was removed with extubation. On maintenenace fluids. Will restart oral diet if she passes her swallow evaluation. * Levemir 7mg BID * Insulin SS medium dose. Adjusted per Endo's recommendations. Lower Extremity Skin Changes: * Was evaluated by vascular surgery. Recommend no surgical intervention at this time. History of restless leg syndrome: * Sinemet was recently discontinued * Lyrica on hold currently. * Lubriderm to affected skin. DVT Prophylaxis: ALPS and Elliquis Code: Full Problem List: 1. A-fib Pain Ratin Tomorrow's Labs & Rationales: CBC, ICU bundle, DIC panel Plan DVT/Prophylaxis: mechanical Jordi Pyle MD 05/27/17 1051: Attending MD Review Statement Attending Sign Off Attending Cosign Statement: I have: examined this patient, reviewed [facility] EMR data, personally reviewd images, discussd w/resident/PA/HAZMAT CDL A DRIVER, discussed mgmt plan w/ida, discussed mgmt plan w/CM, discussed mgmt plan w/pt, agreed w/resident/PA/HAZMAT CDL A DRIVER, amended to note. Other Findings: Impression 86 year old woman * resoloved septic shock * a.fib RVR * acute hypoxemic respiratory failure * GARCÍA improved Plan -Extubated -Low-dose Xanax to be adequate for significant anxiety -abx per ID - Oxacillin -cardiology, ID f/u -f/u hematology recommendations, stress steroids can be tapered per heme -endocrinology appreciated -nephrology consultation appreciated DVT prophylaxis at all times TTS 35 min
--- NOTE | 2017-05-27 07:42 | PN- Diabetes ---
Assessment/Plan Assessment: The patient has now been extubated. She is on D5 half-normal saline at 75 cc/h. She still remains on hydrocortisone 100 mg IV every 8 hours. The patient's most recent blood sugars are 116 and 168. The patient's lab at 4 AM shows a serum sodium which is high at 150 and potassium low at 3.1. Glucose is 126 The patient has abnormal thyroid function tests. Thyroid function tests done this morning reveal a TSH of 0.075 to a free T4 of 0.97. Most likely this is sick euthyroid. The patient's body temperature was normal and she does not have bradycardia. She is on drugs that can affect her thyroid function. A high iodine load from the amiodarone can inhibit the release of thyroid hormone but gradually her thyroid gland will overcome this effect. In addition steroids can lower the TSH. Plan: Suggest hydrate the patient with D5 half-normal saline with 20 mEq KCl at 75 cc/ h.. The patient is to have a swallowing evaluation this morning. Hopefully we will be able to begin her diet. For the present time while she is n.p.o. please keep glucose in the IV. I would reduce her Levemir to 7 units twice a day. Continue sliding scale NovoLog every 4 hours. Sliding scale NovoLog every 4 hours should be less than 150 give no insulin, 151-200 give 2 units NovoLog, 201-250 give 3 units NovoLog, 251-300 give 4 units of NovoLog, 301-350 give 5 units NovoLog. 351-400 give 6 units NovoLog If the patient passes the swallowing evaluation I would continue the same dose of Levemir when she begins her diet. I would change the sliding scale NovoLog before meals. I would recheck her thyroid function tests tomorrow a.m. with a free T4, total T3 and TSH. Subjective Subjective: I want a stiff drink Review of Systems Constitutional: Denies: chills, fever. Cardiovascular: Denies: chest pain. Respiratory: Reports: cough, short of breath. Gastrointestinal: Denies: nausea, vomiting. Objective Last 24 Hrs of Vital Signs/I&O Vital Signs Date Time Temp Pulse Resp B/P B/P Pulse O2 O2 Flow FiO2 Mean Ox Delivery Rate 05/27 0508 124 182/99 05/27 0400 93 Aerosol 40% Mask 05/27 0000 93 Nasal 2.0L Cannula 05/27 0000 97.4 102 16 142/86 93 Nasal 2.0L Cannula 05/26 2101 125 155/94 05/26 210 120 155/94 05/26 Nasal 3.0L Cannula 05/26 181 114 144/84 05/26 1600 Nasal 3.0L Cannula 05/26 1600 98.6 116 32 138/80 96 Nasal 3.0L Cannula 05/26 1200 96 Ventilator 30% 05/26 1149 97 139/68 05/26 0853 30 05/26 0800 100 Ventilator 30% 05/26 0800 98.0 88 16 11862 100 Ventilator 30% Intake & Output 05/27 0800 05/27 0000 05/26 1600 Intake Total 731 713 515 Output Total 038 294 5293 Balance 481 13 -1185 Intake, IV 731 713 415 Intake, Other 100 Number 0 1 2 Bowel Movements Output, Urine 900 114 9659 Patient 274 lb Weight Weight Bed scale Measurement Method Vital Signs Date Time Temp Pulse Resp B/P B/P Pulse O2 O2 Flow FiO2 Mean Ox Delivery Rate 05/27 0508 124 182/99 05/27 0400 93 Aerosol 40% Mask 05/27 0000 93 Nasal 2.0L Cannula 05/27 0000 97.4 102 16 142/86 93 Nasal 2.0L Cannula 05/26 210 125 155/94 05/26 210 120 155/94 05/26 1999 94 Nasal 3.0L Cannula 05/26 181 114 144/84 05/26 1600 Nasal 3.0L Cannula 05/26 1600 98.6 116 32 138/80 96 Nasal 3.0L Cannula 05/26 1200 96 Ventilator 30% 05/26 1149 97 139/68 05/26 0853 30 05/26 0800 100 Ventilator 30% 05/26 0800 98.0 88 16 118/62 100 Ventilator 30% Intake & Output 05/27 0800 05/27 0000 05/26 1600 Intake Total 731 713 515 Output Total 734 050 7209 Balance 481 13 -1185 Intake, IV 731 713 415 Intake, Other 100 Number 0 1 2 Bowel Movements Output, Urine 298 145 2924 Patient 274 lb Weight Weight Bed scale Measurement Method Physical Exam General Appearance: alert, awake, comfortable Neck: normal inspection Respiratory: crackles (right chest) Cardiovascular: regular rate/rhythm Abdomen: normal bowel sounds Extremities: swelling Current Medications: Current Medications Sig/Ric Start time Last Medication Dose Route Stop Time Status Admin Acetaminophen 650 MG Q6P PRN 05/19 0300 AC PO Acetaminophen 1,000 MG Q6P PRN 05/19 0300 AC IV Albumin Human 25 GM Q8H 05/24 0822 AC 05/26 IV 2339 Albuterol Sulfate 3 ML ONCE ONE 05/27 0445 DC 05/27 INH 05/27 0446 0434 Amiodarone HCl 200 MG Q8 05/26 1400 AC 05/27 PO 0508 Apixaban 2.5 MG BID 05/26 1000 AC 05/26 PO 2102 Dextrose/Sodium 1,000 ML Q13H 05/26 1415 AC 05/27 Chloride IV 0514 Docusate Sodium 100 MG DAILY AC 05/23 0820 AC 05/25 PO 0523 Glycerin/Mineral Oil 1 PEDRITO TID PRN 05/24 1100 AC TOP Hydrocortisone 75 MG Q8 05/27 1400 AC Sodium Succinate IV Hydrocortisone 100 MG Q8 05/19 1639 DC 05/27 Sodium Succinate IV 0509 Insulin Aspart 0 Q4H 05/21 1800 AC 05/27 SC 0509 Insulin Detemir 14 UNITS DAILY 05/27 1000 AC SC Insulin Detemir 10 UNITS BID 05/26 2200 DC SC Insulin Detemir 14 UNITS BID 05/26 2200 DC SC Insulin Detemir 14 UNITS BID 05/26 1000 DC 05/26 SC 1147 Metoprolol Tartrate 50 MG BID 05/25 1000 AC 05/26 PO 2102 Oxacillin Sodium 2,000 MG Q4 05/22 1400 AC 05/27 Sodium Chloride 100 ML IV 0508 Pantoprazole Sodium 40 MG DAILY 05/20 0030 AC 05/26 IV 0856 Polyethylene Glycol 17 GM DAILY 05/23 1000 AC 05/26 PO 1149 Potassium Chloride 10 MEQ Q1H 05/27 0745 AC IV 05/27 0846 Propofol 1,000 MG Q9H 05/24 1145 DC 05/26 N/A 1 UNIT IV 0253 Findings Pertinent Lab/Silvano Results: Laboratory Tests 05/27 05/26 0400 1135 Blood Gas pH (7.35 - 7.45 PH) 7.48 H pCO2 (35 - 45 TORR) 35 pO2 (80 - 100 TORR) 76 L HCO3 (21 - 28 MEQ/L) 25 ABG O2 Sat (Measured) (>96.0 %) 94.0 L Carboxyhemoglobin (1.5 - 5.0 %) 0.3 L O2 Concentration % 30% Respiration Rate (BPM) 28 O2 Delivery Method VENT Vent Mode CPAP Expiratory Pressure (CMH2O/P) 5 Pressure Support (CMH2O/P) 6 Chemistry Sodium (137 - 145 mmol/L) 150 H Potassium (3.5 - 5.1 mmol/L) 3.1 L Chloride (98 - 107 mmol/L) 107 Carbon Dioxide (22 - 30 mmol/L) 28 Anion Gap (5 - 16) 16 BUN (7 - 17 mg/dL) 39 H Creatinine (0.5 - 1.0 mg/dL) 1.0 Estimated GFR (>60 ml/min) 53 L Glucose (65 - 99 mg/dL) 126 H Calcium (8.4 - 10.2 mg/dL) 8.1 L Phosphorus (2.5 - 4.5 mg/dL) 3.5 Magnesium (1.6 - 2.3 mg/dL) 1.9 Total Bilirubin (0.2 - 1.3 mg/dL) 0.5 AST (14 - 36 U/L) 17 ALT (9 - 52 U/L) 37 Albumin (3.5 - 5.0 g/dL) 3.6 Coagulation PT (9.4 - 12.5 SEC) 12.3 INR (0.90 - 1.19) 1.17 APTT (25 - 37 SEC) 32 Fibrinogen Activity (200 - 393 MG/DL) 148 L Hematology CBC w Diff MAN DIFF ORDERED WBC (4.8 - 10.8 /CUMM) 8.6 RBC (4.20 - 5.40 /CUMM) 3.09 L Hgb (12.0 - 16.0 G/DL) 9.0 L Hct (37 - 47 %) 28.4 L MCV (81.0 - 99.0 FL) 91.8 MCH (27.0 - 31.0 PG) 29.1 RDW (11.5 - 14.5 %) 21.0 H Plt Count (130 - 400 /CUMM) 131 MPV (7.4 - 10.4 FL) 10.0 Gran % (42.2 - 75.2 %) 94.9 H Lymphocytes % (20.5 - 51.1 %) 3.5 L Monocytes % (1.7 - 9.3 %) 1.6 L Eosinophils % (0 - 5 %) 0 Basophils % (0.0 - 2.0 %) 0 Absolute Granulocytes (1.4 - 6.5 /CUMM) 8.2 H Segmented Neutrophils (42.2 - 75.2 %) 95 H Band Neutrophils (0.0 - 5.0 %) 1 Absolute Lymphocytes (1.2 - 3.4 /CUMM) 0.3 L Lymphocytes (20.5 - 51.1 %) 2 L Monocytes (1.7 - 9.3 %) 1 L Absolute Monocytes (0.10 - 0.60 /CUMM) 0.1 Absolute Eosinophils (0.0 - 0.7 /CUMM) 0 Absolute Basophils (0.0 - 0.2 /CUMM) 0 Metamyelocytes (0.0 - 1.0 %) 1 Platelet Estimate (ADEQUATE) DECREASED Hypochromic-Microcytic 1+ Poikilocytosis 1+ Anisocytosis 1+ Ovalocytes 1+ PUBS MCHC (33.0 - 37.0 G/DL) 31.7 L Miscellaneous Phlebotomy Draw Site LEFT RADIAL
[2017-05-27 08:00] VITALS: BP 138/94
--- NOTE | 2017-05-27 08:00 | PN- Cardiology ---
Subjective Subjective: Patient was extubated yesterday afternoon\ She feels OK but she is thirsty Objective Vital Signs and I&Os Vital Signs Date Time Temp Pulse Resp B/P B/P Pulse O2 O2 Flow FiO2 Mean Ox Delivery Rate 05/27 0508 124 182/99 05/27 0400 93 Aerosol 40% Mask 05/27 0000 93 Nasal 2.0L Cannula 05/27 0000 97.4 102 16 142/86 93 Nasal 2.0L Cannula 05/26 210 125 155/94 05/26 210 120 155/94 05/26 2000 94 Nasal 3.0L Cannula 05/26 1813 114 144/84 05/26 1600 Nasal 3.0L Cannula 05/26 1600 98.6 116 32 138/80 96 Nasal 3.0L Cannula 05/26 1200 96 Ventilator 30% 05/26 1149 97 139/68 05/26 0853 30 05/26 0800 100 Ventilator 30% 05/26 0800 98.0 88 16 118/62 100 Ventilator 30% Intake & Output 05/27 0800 05/27 0000 05/26 1600 05/26 0800 05/26 0000 05/25 1600 Intake Total 731 111 648 6220 1091 901 Output Total 191 908 9374 350 350 350 Balance 481 13 -1185 845 741 551 Intake, IV 731 713 415 475 311 387 Intake, Oral 0 0 Intake, Other 100 80 Intake, Tube 520 520 434 Feeding Intake, Tube 200 260 Irrigant Number 0 1 2 1 1 2 Bowel Movements Output, Urine 275 997 2956 350 350 350 Patient 274 lb 278 lb Weight Weight Bed scale Measurement Method Physical Exam: HEENT-PERRLA Neck-unable to assess JVP, no bruits Lungs-bilateral rhonchi Heart S1S2 irregular Abdomen soft, not tender, BS+, no organomegaly\ Extr-dermatitis with trace edema, diminished distal pulses RUE 2+ edema, PICC line in place neuro-non focal Current Medications: Current Medications Sig/Ric Start time Last Medication Dose Route Stop Time Status Admin Acetaminophen 650 MG Q6P PRN 05/19 030 AC PO Acetaminophen 1,000 MG Q6P PRN 05/19 030 AC IV Albumin Human 25 GM Q8H 05/24 08 AC 05/26 IV 2339 Albuterol Sulfate 3 ML ONCE ONE 05/27 0445 DC 05/27 INH 01/23 0446 0434 Amiodarone HCl 200 MG Q8 05/26 1400 AC 05/27 PO 0508 Apixaban 2.5 MG BID 05/26 1000 AC 05/26 PO 2102 Dextrose/Sodium 1,000 ML Q13H 05/26 1415 AC 05/27 Chloride IV 0514 Docusate Sodium 100 MG DAILY AC 05/23 0820 AC 05/25 PO 0523 Glycerin 2 SPRAY Q2P PRN 05/27 0800 AC PO Glycerin/Mineral Oil 1 PEDRITO TID PRN 05/24 1100 AC TOP Hydrocortisone 75 MG Q8 05/27 1400 AC Sodium Succinate IV Hydrocortisone 100 MG Q8 05/19 1639 DC 05/27 Sodium Succinate IV 0509 Insulin Aspart 0 Q4H 05/21 1800 AC 05/27 SC 0509 Insulin Detemir 14 UNITS DAILY 05/27 1000 AC SC Insulin Detemir 10 UNITS BID 05/26 2200 DC SC Insulin Detemir 14 UNITS BID 05/26 2200 DC SC Insulin Detemir 14 UNITS BID 05/26 1000 DC 05/26 SC 1147 Metoprolol Tartrate 50 MG BID 05/25 1000 AC 05/26 PO 2102 Oxacillin Sodium 2,000 MG Q4 05/22 1400 AC 05/27 Sodium Chloride 100 ML IV 0508 Pantoprazole Sodium 40 MG DAILY 05/20 0030 AC 05/26 IV 0856 Polyethylene Glycol 17 GM DAILY 05/23 1000 AC 05/26 PO 1149 Potassium Chloride 10 MEQ Q1H 05/27 0745 AC IV 05/27 0846 Propofol 1,000 MG Q9H 05/24 1145 DC 05/26 N/A 1 UNIT IV 0253 Results Last 48 Hrs of Labs/Mics: Laboratory Tests 05/27/17 0400: Anion Gap 16, Estimated GFR 53 L, Glucose 126 H, Calcium 8.1 L, Phosphorus 3.5, Magnesium 1.9, Total Bilirubin 0.5, AST 17, ALT 37, Albumin 3.6, PT 12.3, INR 1.17, APTT 32, Fibrinogen Activity 148 L, CBC w Diff MAN DIFF ORDERED, RBC 3.09 L, MCV 91.8, MCH 29.1, RDW 21.0 H, MPV 10.0, Gran % 94.9 H, Lymphocytes % 3.5 L, Monocytes % 1.6 L, Eosinophils % 0, Basophils % 0, Absolute Granulocytes 8.2 H, Segmented Neutrophils 95 H, Band Neutrophils 1, Absolute Lymphocytes 0.3 L, Lymphocytes 2 L, Monocytes 1 L, Absolute Monocytes 0.1, Absolute Eosinophils 0, Absolute Basophils 0, Metamyelocytes 1, Platelet Estimate DECREASED, Hypochromic-Microcytic 1+, Poikilocytosis 1+, Anisocytosis 1 +, Ovalocytes 1+, PUBS MCHC 31.7 L 05/26/17 1135: pH 7.48 H, pCO2 35, pO2 76 L, HCO3 25, ABG O2 Sat (Measured) 94.0 L, Carboxyhemoglobin 0.3 L, O2 Concentration % 30%, Respiration Rate 28, O2 Delivery Method VENT, Vent Mode CPAP, Expiratory Pressure 5, Pressure Support 6, Phlebotomy Draw Site LEFT RADIAL 05/26/17 0500: Anion Gap 11, Estimated GFR 53 L, Glucose 211 H, Calcium 7.5 L, Phosphorus 2.6, Magnesium 2.0, Total Bilirubin 0.2, AST 11 L, ALT 36, Albumin 2.6 L, Triglycerides 156 H, Cholesterol < 50, LDL Cholesterol, Calc 7 L, HDL Cholesterol 12 L, Cholesterol/HDL Ratio , CBC w Diff NO MAN DIFF REQ, RBC 2.63 L, MCV 92.1, MCH 30.1, RDW 21.1 H, MPV 10.3, Gran % 95.4 H, Lymphocytes % 3.9 L, Monocytes % 0.5 L, Eosinophils % 0.2, Basophils % 0, Absolute Granulocytes 5.0, Absolute Lymphocytes 0.2 L, Absolute Monocytes 0 L, Absolute Eosinophils 0, Absolute Basophils 0, PUBS MCHC 32.8 L 05/25/17 1855: pH 7.41, pCO2 38, pO2 84, HCO3 24, ABG O2 Sat (Measured) 95.0 L, P-50 (Temp Corrected) Y, Carboxyhemoglobin 0.3 L, O2 Concentration % 40%, Temperature 97.6 , O2 Delivery Method VENT, Vent Mode CPAP, Expiratory Pressure 5, Pressure Support 6, Phlebotomy Draw Site RIGHT RADIAL Assessment/Plan Assessment/Plan 1. Acute hypoxic respiratory failure/septic shock secondary to MSSA PNA on Oxacillin Extubated yesterday. She is volume overloaded-received large amounts of iv fluids, excellent response to iv Lasix yesterday Now with diuretics induced hypokalemia 2. Rapid atrial fibrillation. Rate faster after extubation, on oral Amio and metoprolol 3. GARCÍA-creatinine improved 4.Thrombocytopenia/ITP, platelet count significantly improved 5. Elevated BP after extubation Plan: continue Lasix 40 mg iv qd replete potassium increaese metoprolol 100 mg bid amiodarone to 200 mg tid if she remains hypertensive and tachycardic, will start cardizem 30 mg qid tomorrow Eliquis 2.5 mg bid taper steroids Continue telemetry? Yes
--- NOTE | 2017-05-27 08:24 | RADIOLOGY REPORT ---
EXAMINATION: XR PORTABLE CHEST CLINICAL INFORMATION: Pneumonia. Line placement. COMPARISON: Several prior chest x-rays, the most recent 05/26/2017 TECHNIQUE: Portable frontal view of the chest was obtained. FINDINGS: Examination is significantly limited secondary to patient rotation. Neither an enteric tube or endotracheal tube is clearly visualized. There is a right-sided PICC line: Its tip difficult to localize given patient positioning. Again noted is complete opacification of the left hemithorax. There is a small right-sided pleural effusion. IMPRESSION: Essentially nondiagnostic examination secondary to patient positioning. There remains complete opacification of the left hemithorax. Support lines are not clearly visualized.
--- NOTE | 2017-05-27 08:49 | PN- Hematology ---
Subjective Subjective: She is extubated and doing better. She denies any pain. She wants to drink. Review of Systems Constitutional: Reports: fever. Gastrointestinal: Denies: abdominal pain. Musculoskeletal: Denies: back pain. All Other Systems: Reviewed and Negative Objective Vital Signs and I&Os Vital Signs Date Time Temp Pulse Resp B/P B/P Pulse O2 O2 Flow FiO2 Mean Ox Delivery Rate 05/27 0508 124 182/99 05/27 0400 93 Aerosol 40% Mask 05/27 0000 93 Nasal 2.0L Cannula 05/27 0000 97.4 102 16 142/86 93 Nasal 2.0L Cannula 05/26 210 125 155/94 05/26 210 120 155/94 05/26 2000 94 Nasal 3.0L Cannula 05/26 1813 114 144/84 05/26 1600 Nasal 3.0L Cannula 05/26 1600 98.6 116 32 138/80 96 Nasal 3.0L Cannula 05/26 1200 96 Ventilator 30% 05/26 1149 97 139/68 05/26 0853 30 Intake & Output 05/27 1600 05/27 0800 05/27 0000 05/26 1600 05/26 0800 05/26 0000 Intake Total 731 170 256 2875 1091 Output Total 696 040 2434 350 350 Balance 481 13 -1185 845 741 Intake, IV 731 713 415 475 311 Intake, Oral 0 0 Intake, Other 100 Intake, Tube 520 520 Feeding Intake, Tube 200 260 Irrigant Number 0 1 2 1 1 Bowel Movements Output, Urine 132 472 1077 350 350 Patient 124.426 kg 125.872 kg Weight Weight Bed scale Measurement Method Physical Exam: General Appearance: Awake and alert Ears, Nose, Throat: face mask in place Respiratory: chest non-tender, rhonchi, no respiratory distress Cardiovascular: tachycardia, irregularly irregular Abdomen: normal bowel sounds, soft, non-tender Extremities: bilateral upper extremity 2+ edema, ecchymoses in upper extremities , worse on right, hyperpigmented lower extremities Neurologic/Psychiatric: awake Current Medications: Current Medications Sig/Ric Start time Last Medication Dose Route Stop Time Status Admin Acetaminophen 650 MG Q6P PRN 05/19 0300 AC PO Acetaminophen 1,000 MG Q6P PRN 05/19 0300 AC IV Albumin Human 25 GM Q8H 05/24 08 AC 05/27 IV 0809 Albuterol Sulfate 3 ML ONCE ONE 05/27 0445 DC 05/27 INH 05/27 0446 0434 Amiodarone HCl 200 MG Q8 05/26 1400 AC 05/27 PO 0508 Apixaban 2.5 MG BID 05/26 1000 AC 05/26 PO 2102 Dextrose/Sodium 1,000 ML Q13H 05/26 1415 AC 05/27 Chloride IV 0514 Docusate Sodium 100 MG DAILY AC 05/23 0820 AC 05/25 PO 0523 Furosemide 40 MG 0845 05/27 0845 AC IV 05/27 0846 Glycerin 2 SPRAY Q2P PRN 05/27 0800 AC PO Glycerin/Mineral Oil 1 PEDRITO TID PRN 05/24 1100 AC TOP Hydrocortisone 75 MG Q8 05/27 1400 AC Sodium Succinate IV Hydrocortisone 100 MG Q8 05/19 1639 DC 05/27 Sodium Succinate IV 0509 Insulin Aspart 0 Q4H 05/21 1800 AC 05/27 SC 0509 Insulin Detemir 14 UNITS DAILY 05/27 1000 DC SC Insulin Detemir 7 UNITS DAILY 05/27 1000 AC SC Insulin Detemir 10 UNITS BID 05/26 2200 DC SC Insulin Detemir 14 UNITS BID 05/26 2200 DC SC Insulin Detemir 14 UNITS BID 05/26 1000 DC 05/26 SC 1147 Metoprolol Tartrate 100 MG BID 05/27 1000 AC PO Metoprolol Tartrate 50 MG BID 05/25 1000 DC 05/26 PO 2102 Oxacillin Sodium 2,000 MG Q4 05/22 1400 AC 05/27 Sodium Chloride 100 ML IV 0508 Pantoprazole Sodium 40 MG DAILY 05/20 0030 AC 05/26 IV 0856 Polyethylene Glycol 17 GM DAILY 05/23 1000 AC 05/26 PO 1149 Potassium Chloride 40 MEQ ONCE ONE 05/27 0845 AC PO 05/27 0846 Potassium Chloride 10 MEQ Q1H 05/27 0745 AC IV 05/27 0846 Propofol 1,000 MG Q9H 05/24 1145 DC 05/26 N/A 1 UNIT IV 0253 Results Last 24 Hours of Lab Results: Laboratory Tests 05/27 05/26 0400 1135 Blood Gas pH (7.35 - 7.45 PH) 7.48 H pCO2 (35 - 45 TORR) 35 pO2 (80 - 100 TORR) 76 L HCO3 (21 - 28 MEQ/L) 25 ABG O2 Sat (Measured) (>96.0 %) 94.0 L Carboxyhemoglobin (1.5 - 5.0 %) 0.3 L O2 Concentration % 30% Respiration Rate (BPM) 28 O2 Delivery Method VENT Vent Mode CPAP Expiratory Pressure (CMH2O/P) 5 Pressure Support (CMH2O/P) 6 Chemistry Sodium (137 - 145 mmol/L) 150 H Potassium (3.5 - 5.1 mmol/L) 3.1 L Chloride (98 - 107 mmol/L) 107 Carbon Dioxide (22 - 30 mmol/L) 28 Anion Gap (5 - 16) 16 BUN (7 - 17 mg/dL) 39 H Creatinine (0.5 - 1.0 mg/dL) 1.0 Estimated GFR (>60 ml/min) 53 L Glucose (65 - 99 mg/dL) 126 H Calcium (8.4 - 10.2 mg/dL) 8.1 L Phosphorus (2.5 - 4.5 mg/dL) 3.5 Magnesium (1.6 - 2.3 mg/dL) 1.9 Total Bilirubin (0.2 - 1.3 mg/dL) 0.5 AST (14 - 36 U/L) 17 ALT (9 - 52 U/L) 37 Albumin (3.5 - 5.0 g/dL) 3.6 Coagulation PT (9.4 - 12.5 SEC) 12.3 INR (0.90 - 1.19) 1.17 APTT (25 - 37 SEC) 32 Fibrinogen Activity (200 - 393 MG/DL) 148 L Hematology CBC w Diff MAN DIFF ORDERED WBC (4.8 - 10.8 /CUMM) 8.6 RBC (4.20 - 5.40 /CUMM) 3.09 L Hgb (12.0 - 16.0 G/DL) 9.0 L Hct (37 - 47 %) 28.4 L MCV (81.0 - 99.0 FL) 91.8 MCH (27.0 - 31.0 PG) 29.1 RDW (11.5 - 14.5 %) 21.0 H Plt Count (130 - 400 /CUMM) 131 MPV (7.4 - 10.4 FL) 10.0 Gran % (42.2 - 75.2 %) 94.9 H Lymphocytes % (20.5 - 51.1 %) 3.5 L Monocytes % (1.7 - 9.3 %) 1.6 L Eosinophils % (0 - 5 %) 0 Basophils % (0.0 - 2.0 %) 0 Absolute Granulocytes (1.4 - 6.5 /CUMM) 8.2 H Segmented Neutrophils (42.2 - 75.2 %) 95 H Band Neutrophils (0.0 - 5.0 %) 1 Absolute Lymphocytes (1.2 - 3.4 /CUMM) 0.3 L Lymphocytes (20.5 - 51.1 %) 2 L Monocytes (1.7 - 9.3 %) 1 L Absolute Monocytes (0.10 - 0.60 /CUMM) 0.1 Absolute Eosinophils (0.0 - 0.7 /CUMM) 0 Absolute Basophils (0.0 - 0.2 /CUMM) 0 Metamyelocytes (0.0 - 1.0 %) 1 Platelet Estimate (ADEQUATE) DECREASED Hypochromic-Microcytic 1+ Poikilocytosis 1+ Anisocytosis 1+ Ovalocytes 1+ PUBS MCHC (33.0 - 37.0 G/DL) 31.7 L Miscellaneous Phlebotomy Draw Site LEFT RADIAL Assessment/Plan Assessment/Recommendations: Ms. Christine is an 86-year-old female with chronic ITP, HTN, HLD, [place] s/p PCI with stent, DM, and atrial fibrillation who presented with new hypoxia and cough. She has been having new cough a few days ago. CTA demonstrated moderate atelectasis/consolidation in the left upper and lower lobes. There was mild right base atelectasis and moderate left and [id number] right pleural effusions. She was briefly in shock and required Levophed. She is being treated for MSSA pneumonia with oxallicin. She is on stress dose steroid. She is currently extubated and is doing better. Platelet count is improving. Her platelet count today is 131,000. hemoglobin is improving. Renal function is normal. Given the improvement on the hydrocortisone 100 mg every 8 hours, she should remain on this. The oral equivalent would be prednisone 75 mg daily. The improvement in platelet count suggests sepsis is an underlying process for her thrombocytopenia. Acute hypoxic respiratory failure with shock likely from MSSA pneumonia: -continue management as per ICU -infectious disease following -currently on oxallicin Chronic ITP: -continue hydrocortisone 100 mg every 8 hours, once oral intake can convert to prednisone 80 mg daily -continues to monitor the fibrinogen and PT/PTT Daily -transfuse with cryo if fibrinogen <100 Atrial fibrillation with RVR: -cardiology following -currently on apixaban, amiodarone, and metoprolol Please call [phone] with any questions or concerns. Problem List: 1. Sepsis 2. Pneumonia 3. Atrial fibrillation with RVR 4. Thrombocytopenia 5. Chronic anemia
--- NOTE | 2017-05-27 10:29 | PN- Infect Dx ---
Subjective Subjective: Afebrile on steroids. She was extubated yesterday and has remained stable overnight with no complaints at this time. Objective Last 24 Hrs of Vital Signs/I&O Vital Signs Date Time Temp Pulse Resp B/P B/P Pulse O2 O2 Flow FiO2 Mean Ox Delivery Rate 05/27 0910 125 188/98 05/27 0508 124 182/99 05/27 0400 93 Aerosol 40% Mask 05/27 0000 93 Nasal 2.0L Cannula 05/27 0000 97.4 102 16 142/86 93 Nasal 2.0L Cannula 05/26 210 125 155/94 05/26 210 120 155/94 05/26 2000 94 Nasal 3.0L Cannula 05/26 181 114 144/84 05/26 1600 Nasal 3.0L Cannula 05/26 1600 98.6 116 32 138/80 96 Nasal 3.0L Cannula 05/26 1200 96 Ventilator 30% 05/26 1149 97 139/68 Intake & Output 05/27 1600 05/27 0800 05/27 0000 Intake Total 731 713 Output Total 250 700 Balance 481 13 Intake, IV 731 713 Number 0 1 Bowel Movements Output, Urine 250 700 Patient 274 lb Weight Weight Bed scale Measurement Method Physical Exam Other Physical Findings: She appears comfortable on a ventimask in no acute distress Lungs bilateral rhonchi Heart regular rhythm with no murmur Abdomen is obese, soft, nontender positive bowel sounds Extremities chronic venous stasis changes both lower extremities; PICC in place in the right upper extremity Faust catheter remains in place Results Last 24 Hours of Lab Results: Laboratory Tests 05/27 05/26 0400 1135 Blood Gas pH (7.35 - 7.45 PH) 7.48 H pCO2 (35 - 45 TORR) 35 pO2 (80 - 100 TORR) 76 L HCO3 (21 - 28 MEQ/L) 25 ABG O2 Sat (Measured) (>96.0 %) 94.0 L Carboxyhemoglobin (1.5 - 5.0 %) 0.3 L O2 Concentration % 30% Respiration Rate (BPM) 28 O2 Delivery Method VENT Vent Mode CPAP Expiratory Pressure (CMH2O/P) 5 Pressure Support (CMH2O/P) 6 Chemistry Sodium (137 - 145 mmol/L) 150 H Potassium (3.5 - 5.1 mmol/L) 3.1 L Chloride (98 - 107 mmol/L) 107 Carbon Dioxide (22 - 30 mmol/L) 28 Anion Gap (5 - 16) 16 BUN (7 - 17 mg/dL) 39 H Creatinine (0.5 - 1.0 mg/dL) 1.0 Estimated GFR (>60 ml/min) 53 L Glucose (65 - 99 mg/dL) 126 H Calcium (8.4 - 10.2 mg/dL) 8.1 L Phosphorus (2.5 - 4.5 mg/dL) 3.5 Magnesium (1.6 - 2.3 mg/dL) 1.9 Total Bilirubin (0.2 - 1.3 mg/dL) 0.5 AST (14 - 36 U/L) 17 ALT (9 - 52 U/L) 37 Albumin (3.5 - 5.0 g/dL) 3.6 Coagulation PT (9.4 - 12.5 SEC) 12.3 INR (0.90 - 1.19) 1.17 APTT (25 - 37 SEC) 32 Fibrinogen Activity (200 - 393 MG/DL) 148 L Hematology CBC w Diff MAN DIFF ORDERED WBC (4.8 - 10.8 /CUMM) 8.6 RBC (4.20 - 5.40 /CUMM) 3.09 L Hgb (12.0 - 16.0 G/DL) 9.0 L Hct (37 - 47 %) 28.4 L MCV (81.0 - 99.0 FL) 91.8 MCH (27.0 - 31.0 PG) 29.1 RDW (11.5 - 14.5 %) 21.0 H Plt Count (130 - 400 /CUMM) 131 MPV (7.4 - 10.4 FL) 10.0 Gran % (42.2 - 75.2 %) 94.9 H Lymphocytes % (20.5 - 51.1 %) 3.5 L Monocytes % (1.7 - 9.3 %) 1.6 L Eosinophils % (0 - 5 %) 0 Basophils % (0.0 - 2.0 %) 0 Absolute Granulocytes (1.4 - 6.5 /CUMM) 8.2 H Segmented Neutrophils (42.2 - 75.2 %) 95 H Band Neutrophils (0.0 - 5.0 %) 1 Absolute Lymphocytes (1.2 - 3.4 /CUMM) 0.3 L Lymphocytes (20.5 - 51.1 %) 2 L Monocytes (1.7 - 9.3 %) 1 L Absolute Monocytes (0.10 - 0.60 /CUMM) 0.1 Absolute Eosinophils (0.0 - 0.7 /CUMM) 0 Absolute Basophils (0.0 - 0.2 /CUMM) 0 Metamyelocytes (0.0 - 1.0 %) 1 Platelet Estimate (ADEQUATE) DECREASED Hypochromic-Microcytic 1+ Poikilocytosis 1+ Anisocytosis 1+ Ovalocytes 1+ PUBS MCHC (33.0 - 37.0 G/DL) 31.7 L Miscellaneous Phlebotomy Draw Site LEFT RADIAL Last 24 Hours of Silvano Results: No new cultures Recent Imaging Studies: Chest x-ray May 27, limited by patient rotation, reveals complete opacification of the left hemithorax Assessment/Plan Impression: Overall improved, status post successful extubation yesterday, with temperatures and white blood cell count remaining normal (on steroids) on Oxacillin, Day 9 of treatment for MSSA pneumonia. Her renal function has normalized, though her sodium is increased, possibly secondary to the Lasix, with diuresis noted yesterday. Her platelet count continues to increase on steroids. Her chest x- ray is difficult to interpret with opacification of the left hemithorax of some concern. Suggestion: 1. Aggressive pulmonary toilet 2. Correct hypernatremia 3. Further management of her fluid status per Cardiology 4. Remove Faust catheter if okay with Cardiology 5. Continue Oxacillin
[2017-05-27 16:00] VITALS: BP 148/70
--- NOTE | 2017-05-28 01:42 | RADIOLOGY REPORT ---
EXAMINATION: XR PORTABLE CHEST CLINICAL INFORMATION: Agonal breathing COMPARISON: 05/27/2017 TECHNIQUE: Portable frontal view of the chest was obtained. FINDINGS: Evaluation is limited due to patient positioning. There is redemonstrated complete opacification of the left hemithorax without significant change. There is hazy opacification of the basilar right lung. Right PICC is present, with tip location is not well delineated. The cardiomediastinal silhouette is not adequately evaluated due to the left hemithorax opacification. IMPRESSION: No appreciable interval change. Redemonstrated complete left hemithorax opacification which could be secondary to pleural effusion and/or lung collapse. Right basilar haziness is similar to prior.
--- NOTE | 2017-05-28 05:34 | Event Note ---
Event Note Event Note: Patient was unresponsive around 1 am last night, heart rate dropped down to 50s and was hypoxic to 70s. Pulse detectable with duplex US only. ABG was ordered which showed a ph of 7.25, PO2 51, HCO3 19 O2 sat 79. Patient was started on BiPAP and started on 1000ml NS bolus. Son was called to get the consult for Reintubation if the need be. Repeat ABG showed normal PH, HCO3 and PCO2 with PO2 of 73. Patient continued on BiPAP with low threshold for intubation if clinically worsens.
[2017-05-28 06:00] LABS: ABSOLUTE BASOPHIL COUNT 0 /CUMM (0.0-0.2); ABSOLUTE EOSINOPHIL COUNT 0 /CUMM (0.0-0.7); ABSOLUTE LYMPH COUNT 0.2 /CUMM (1.2-3.4); ABSOLUTE MONOCYTE COUNT 0.2 /CUMM (0.10-0.60); BASOPHIL % 0 % (0.0-2.0); EOSINOPHIL % 0 % (0-5); MEAN CORPUSCULAR HGB 29.6 PG (27.0-31.0); MEAN CORPUSCULAR HGB CONC 31.8 G/DL (33.0-37.0); MEAN CORPUSCULAR VOLUME 93.2 FL (81.0-99.0); MEAN PLATELET VOLUME 10.2 FL (7.4-10.4); RBC DISTRIBUTION WIDTH 21.6 % (11.5-14.5); RED BLOOD CELL CT 2.68 /CUMM (4.20-5.40); WHITE BLOOD CELL COUNT 7.4 /CUMM (4.8-10.8)
[2017-05-28 06:15] LABS: PT 15.4 SEC (9.4-12.5); PTT 37 SEC (25-37)
[2017-05-28 06:25] LABS: GRANULOCYTE % 94.1 % (42.2-75.2); PLATELET COUNT 145 /CUMM (130-400)
--- NOTE | 2017-05-28 07:00 | PN- Resident CRCU ---
See Addendum Subjective HPI/CRCU Issues: Atrial Fibrilliation Hypotension Acute Hypoxic Respiratory Failure 24 Hour Events: Nurses report that this morning the patient pulled out her high flow oxygen causing a transient drop in her blood presurre, heart rate (down to 40) and oxygen saturations. She was give a 1L fluid bolus and placed on BiPAP. Her blood pressure and saturations improved after intervention. Earlier she was started back on high flow oxygen. She is maintaining her saturations. RT advised to continue aggressive pulmonary toilet. She passed her swallowing evaluation yesterday, however, PO intake remains poor. Objective Vital Signs & I&O Last 8 Hrs of Vitals and I&O: . Exam General Appearance: alert, awake, moderate distress Head: atraumatic, normal appearance Ears, Nose, Throat: hearing grossly normal Respiratory: chest non-tender, rhonchi Cardiovascular: irregularly irregular Gastrointestinal: soft, non-tender Extremities: stasis skin changes 2+ pitting edema Skin: normal color, stasis skin changes of lower extremities Skin Temp/Moisture Exam: Warm/Dry Sepsis Skin Exam (color): Normal for Ethnicity Weaning Parameters NIF: 23 Minute Volume: 8.9 Resp rate: 25 Vt: 300 Heart Rate: 94 Weaning Schedule Start Time: 1025 Minute Volume: 9.6 Resp Rate: 27 Vt: 335 Heart Rate: 94 End Time: 1330 Minute Volume: 8.6 Resp Rate: 26 Vt: 300 Heart Rate: 90 Current Medications: Current Medications Sig/Ric Start time Last Medication Dose Route Stop Time Status Admin Acetaminophen 650 MG Q6P PRN 05/19 0300 AC PO Acetaminophen 1,000 MG Q6P PRN 05/19 0300 AC IV Albumin Human 25 GM Q8H 05/24 0822 AC 05/28 IV 0844 Albuterol Sulfate 3 ML Q4H PRN 05/27 1315 AC 05/27 INH 1306 Alprazolam 0.25 MG ONCE ONE 05/27 1215 CAN PO 05/27 1216 Amiodarone HCl 200 MG Q8 05/26 1400 AC 05/27 PO 2123 Apixaban 2.5 MG BID 05/26 1000 DC 05/27 PO 2123 Cefazolin Sodium 1,000 MG IQ8 05/27 1600 AC 05/28 IV 0844 Dextrose/Sodium 1,000 ML Q13H 05/26 1415 AC 01/23 Chloride IV 2124 Docusate Sodium 100 MG DAILY AC 05/23 0820 AC 05/25 PO 0523 Glycerin 2 SPRAY Q2P PRN 05/27 0800 AC PO Glycerin/Mineral Oil 1 PEDRITO TID PRN 05/24 1100 AC TOP Hydrocortisone 75 MG Q8 05/27 1400 CAN Sodium Succinate IV Insulin Aspart 0 Q4H 05/21 1800 AC 05/28 SC 1032 Insulin Detemir 7 UNITS DAILY 05/27 1000 AC 05/28 SC 1032 Metoprolol Tartrate 50 MG BID 05/28 1000 DC PO Metoprolol Tartrate 100 MG BID 05/28 1000 AC 05/28 PO 0926 Metoprolol Tartrate 100 MG BID 05/27 1000 DC 05/27 PO 2122 Oxacillin Sodium 2,000 MG Q4 05/22 1400 DC 05/27 Sodium Chloride 100 ML IV 1020 Pantoprazole Sodium 40 MG DAILY 05/20 0030 AC 05/28 IV 0902 Polyethylene Glycol 17 GM DAILY 05/23 1000 AC 05/26 PO 1149 Potassium Chloride 20 MEQ ONCE ONE 05/28 0845 DC 05/28 IV 05/28 0846 0903 Potassium Chloride 40 MEQ ONCE ONE 05/28 0845 DC 05/28 PO 05/28 0846 0927 Potassium Chloride 20 MEQ Q1H 05/27 1815 DC 05/27 IV 05/27 1916 1944 Potassium Chloride 40 MEQ ONCE ONE 05/27 1800 CAN PO 05/27 1801 Prednisone 80 MG DAILY 05/27 1145 AC 05/28 PO 0926 Sodium Chloride 1,000 ML BOLUS ONE 05/28 0530 DC 05/28 IV 05/28 0729 0524 Sodium Chloride 500 ML BOLUS ONE 05/28 0515 DC 05/28 IV 05/28 0614 0524 Impression/Plan Impression/Problem List Impression: 86 year old woman with past medical history of hypertension, hyperlipidemia, [place] s/p PCI with stent, diabetes mellitus, and restless leg syndrome, history of atrial fibrillation with anticoagulation on hold due to severe thrombocytopenia was sent in from extended care facility for hypoxia, leukocytosis and productive cough. She was admitted on telemetry floor and transfered to ICU after patient desaturated became unresponsive. Assessment and Plan: Acute hypoxic respiratory failure likely secondary to HCAP: * Her white count has normalized and she's been afebrile. Her sputum culture is growing MSSA. * Antibiotics changed to IV Cefazolin 1gm q8. * Successfully extubated 05/26. Currently on BiPAP. * ID recs appreciated. * Her CXR shows collapse of left lung likely due to mucous plugging. She will have to be reintubated for a bronchoscopy. Family is agreeable to the procedure and have consented. Atrial Fibrilliation with Hypotension: * Will decrease metoprolol to 50mg BID. * Continue oral Amiodarone at 200mg TID. * Continue Elliquis 2.5mg BID. * Will continue IVF with D5-1/2NS @ 75ml/hr. * Levophed was discontinued on 05/20 as blood pressure had been stable. * Echo - Normal left ventricular ejection fraction visually estimated at > 60% . Immune Thrombocytopenia: * Her platelets continue to uptrend. * Hydrocortisone has been discontinued and she has been started on daily Prednisone 80mg. * Daily CBC * s/p 1 unit transfusion of platelets 05/22. 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 * Her fibrinogen had been decreasing each day. Slight improvement today. * Recommendation to transfuse with cryoprecipitate if fibrinogen falls below 100. * IVIG and transfusion if acutely bleeding GARCÍA on CKD: * Cr 1.1 today. * Was likely contrast induced nephropathy * One dose of IV lasix 20mg given due to poor urine output. Would repeat another 20mg IV in evening if blood pressure permits. * Nephro recs appreciated. * Strict I&Os. Diabetes Mellitus: * Tube feeds were discontinued after OG tube was removed with extubation. On maintenenace fluids. * Levemir 7mg BID * Insulin SS medium dose. Adjusted per Endo's recommendations. Lower Extremity Skin Changes: * Was evaluated by vascular surgery. Recommend no surgical intervention at this time. History of restless leg syndrome: * Sinemet was recently discontinued * Lyrica on hold currently. * Lubriderm to affected skin. DVT Prophylaxis: ALPS and Elliquis Code: Full Problem List: 1. Pneumonia Pain Ratin Tomorrow's Labs & Rationales: CBC, ICU bundle, DIC panel Plan DVT/Prophylaxis: mechanical
--- NOTE | 2017-05-28 07:42 | PN- Diabetes ---
Assessment/Plan Assessment: The patient has now been extubated. Her steroid dose has been reduced to prednisone 80 mg once a day. On 7 units of Levemir once a day. She is on IV fluids with D5 half-normal saline +20 mEq KCl at 75 cc/h. She is also on q. 4 hour NovoLog coverage. Apparently she passed a swallowing evaluation and was felt to be able to tolerate thickened liquids. However during the day she began to desaturate and last night she had an episode of hypoxemia associated with bradycardia and unresponsiveness. She received a few boluses of normal saline. His morning she is alert and awake. The patient's lab at 4 AM shows a serum sodium which is high at 151 and potassium low at 3.5. Glucose is 183 The patient has abnormal thyroid function tests. They were felt to represent sick euthyroid as well as the effect of medication on her thyroid function tests. Thyroid function tests done today show a TSH of 0.285 and a total T3 of 0.47 with a free T4 of 1.16. Therefore her thyroid tests are becoming more normal.. Plan: Suggest continue the present insulin. Continue D5 half-normal saline with 20 mEq KCl at 75 cc/h. With regard to her hyponatremia if we could use her GI tract today by offering her thickened liquids this will help bring down her serum sodium. The patient's thyroid tests are improving and I do not think she needs any treatment for thyroid disease. They seem to represent sick euthyroid and we can repeat them in a few days. Subjective Subjective: Feels okay Objective Last 24 Hrs of Vital Signs/I&O Vital Signs Date Time Temp Pulse Resp B/P B/P Pulse O2 O2 Flow FiO2 Mean Ox Delivery Rate 05/28 0524 30 85/54 05/28 0500 114 96 05/28 0456 113 100 05/28 0148 95 BIPAP 100% 05/28 0131 100 95 05/27 2123 120 145/96 05/27 2121 115 145/96 05/27 2000 92 Nasal 100% Cannula 05/27 1917 97 Nasal 95% Cannula 05/27 1656 93 Nasal 70% Cannula 05/27 1600 90 Aerosol 50% Mask 05/27 1600 98.2 116 18 148/70 90 Aerosol 50% Mask 05/27 1531 117 154/77 05/27 1316 Nasal 6.0L Cannula 05/27 1313 92 Nasal 6.0L Cannula 05/27 1200 91 Aerosol 40% Mask 05/27 0910 125 188/98 05/27 0800 94 Aerosol 40% Mask 05/27 0800 98.1 123 24 138/94 94 Aerosol 40% Mask Intake & Output 05/28 0800 05/28 0000 05/27 1600 Intake Total 1575 680 778 Output Total 259 841 6611 Balance 1470 80 -572 Intake, IV 1575 680 778 Number 1 0 Bowel Movements Output, Urine 528 810 7127 Vital Signs Date Time Temp Pulse Resp B/P B/P Pulse O2 O2 Flow FiO2 Mean Ox Delivery Rate 05/28 0524 30 85/54 05/28 0500 114 96 05/28 0456 113 100 05/28 0148 95 BIPAP 100% 05/28 0131 100 95 05/27 2122 120 145/96 05/27 2121 115 145/96 05/27 2000 92 Nasal 100% Cannula 05/27 1917 97 Nasal 95% Cannula 05/27 1656 93 Nasal 70% Cannula 05/27 1600 90 Aerosol 50% Mask 05/27 1600 98.2 116 18 148/70 90 Aerosol 50% Mask 05/27 1531 117 154/77 05/27 1316 Nasal 6.0L Cannula 05/27 1313 92 Nasal 6.0L Cannula 05/27 1200 91 Aerosol 40% Mask 05/27 0910 125 188/98 05/27 0800 94 Aerosol 40% Mask 05/27 0800 98.1 123 24 138/94 94 Aerosol 40% Mask Intake & Output 05/28 0800 05/28 0000 05/27 1600 Intake Total 1575 680 778 Output Total 147 360 3425 Balance 1470 80 -572 Intake, IV 1574 680 778 Number 1 0 Bowel Movements Output, Urine 320 317 7658 Physical Exam General Appearance: alert, awake, lethargic Head: normal appearance Neck: normal inspection Respiratory: decreased breath sounds (at bases) Cardiovascular: irregularly irregular Extremities: swelling Current Medications: Current Medications Sig/Ric Start time Last Medication Dose Route Stop Time Status Admin Acetaminophen 650 MG Q6P PRN 05/19 299 AC PO Acetaminophen 1,000 MG Q6P PRN 05/19 030 AC IV Albumin Human 25 GM Q8H 05/24 0822 AC 05/28 IV 0135 Albuterol Sulfate 3 ML Q4H PRN 05/27 1315 AC 05/27 INH 1306 Alprazolam 0.25 MG ONCE ONE 05/27 1215 CAN PO 05/27 1216 Alprazolam 0.25 MG ONCE ONE 05/27 1015 DC 05/27 PO 05/27 1016 1023 Amiodarone HCl 200 MG Q8 05/26 1400 AC 05/27 PO 2123 Apixaban 2.5 MG BID 05/26 1000 AC 05/27 PO 2123 Cefazolin Sodium 1,000 MG IQ8 05/27 1600 AC 05/28 IV 0135 Dextrose/Sodium 1,000 ML Q13H 05/26 1415 AC 05/27 Chloride IV 2124 Docusate Sodium 100 MG DAILY AC 05/23 0820 AC 05/25 PO 0523 Furosemide 40 MG 0845 05/27 0845 DC 05/27 IV 05/27 0846 0850 Glycerin 2 SPRAY Q2P PRN 05/27 0800 AC PO Glycerin/Mineral Oil 1 PEDRITO TID PRN 05/24 1100 AC TOP Hydrocortisone 75 MG Q8 05/27 1400 CAN Sodium Succinate IV Insulin Aspart 0 Q4H 05/21 1800 AC 05/28 SC 0529 Insulin Detemir 14 UNITS DAILY 05/27 1000 DC SC Insulin Detemir 7 UNITS DAILY 05/27 1000 AC 05/27 SC 1020 Metoprolol Tartrate 100 MG BID 05/27 1000 AC 05/27 PO 212 Metoprolol Tartrate 50 MG .STK-MED ONE 05/27 0908 DC PO 05/27 0909 Metoprolol Tartrate 50 MG BID 05/25 1000 DC 05/26 PO 2102 Oxacillin Sodium 2,000 MG Q4 05/22 1400 DC 05/27 Sodium Chloride 100 ML IV 1020 Pantoprazole Sodium 40 MG DAILY 05/20 0030 AC 05/27 IV 0911 Polyethylene Glycol 17 GM DAILY 05/23 1000 AC 05/26 PO 1149 Potassium Chloride 20 MEQ Q1H 05/27 1815 DC 05/27 IV 05/27 1916 1944 Potassium Chloride 40 MEQ ONCE ONE 05/27 1800 CAN PO 05/27 1801 Potassium Chloride 20 MEQ ONCE ONE 05/27 0915 DC 05/27 IV 05/27 0916 0934 Potassium Chloride 40 MEQ ONCE ONE 05/27 0845 DC 05/27 PO 05/27 0846 0850 Potassium Chloride 10 MEQ Q1H 05/27 0745 DC IV 05/27 0846 Prednisone 80 MG DAILY 05/27 1145 AC 05/27 PO 1521 Sodium Chloride 1,000 ML BOLUS ONE 05/28 529 DC 05/28 IV 05/28 0729 0524 Sodium Chloride 500 ML BOLUS ONE 05/28 0415 DC 05/28 IV 05/28 0614 0524 Findings Pertinent Lab/Silvano Results: Laboratory Tests 05/28 05/28 05/28 0400 0255 0215 Blood Gas pH (7.35 - 7.45 PH) 7.35 pCO2 (35 - 45 TORR) 40 pO2 (80 - 100 TORR) 73 L HCO3 (21 - 28 MEQ/L) 22 ABG O2 Sat (Measured) (>96.0 %) 93.0 L P-50 (Temp Corrected) Y Carboxyhemoglobin (1.5 - 5.0 %) 0.5 L O2 Concentration % 100% Temperature (97.0 - 100.0 FARH) 96.8 L Respiration Rate (BPM) 22 O2 Delivery Method VISION-FFM Vent Mode ST Expiratory Pressure (CM H2O P) 6 Inspiratory Pressure (CM H2O P) 20 Chemistry Sodium (137 - 145 mmol/L) 151 H Potassium (3.5 - 5.1 mmol/L) 3.5 Chloride (98 - 107 mmol/L) 109 H Carbon Dioxide (22 - 30 mmol/L) 25 Anion Gap (5 - 16) 16 BUN (7 - 17 mg/dL) 42 H Creatinine (0.5 - 1.0 mg/dL) 1.1 H Estimated GFR (>60 ml/min) 47 L Glucose (65 - 99 mg/dL) 183 H Lactic Acid (0.7 - 2.1 mmol/L) 2.5 H Calcium (8.4 - 10.2 mg/dL) 7.7 L Phosphorus (2.5 - 4.5 mg/dL) 4.2 Magnesium (1.6 - 2.3 mg/dL) 1.8 Total Bilirubin (0.2 - 1.3 mg/dL) 0.5 AST (14 - 36 U/L) 28 ALT (9 - 52 U/L) 49 Albumin (3.5 - 5.0 g/dL) 3.4 L TSH (0.270 - 4.200 uIU/mL) 0.285 Free T4 (0.85 - 1.93 ng/dL) 1.16 Total T3 (0.97 - 1.69 ng/mL) 0.47 L Coagulation PT (9.4 - 12.5 SEC) 15.4 H INR (0.90 - 1.19) 1.47 H APTT (25 - 37 SEC) 37 Hematology CBC w Diff NO MAN DIFF REQ WBC (4.8 - 10.8 /CUMM) 7.4 RBC (4.20 - 5.40 /CUMM) 2.68 L Hgb (12.0 - 16.0 G/DL) 7.9 L Hct (37 - 47 %) 25.0 L MCV (81.0 - 99.0 FL) 93.2 MCH (27.0 - 31.0 PG) 29.6 RDW (11.5 - 14.5 %) 21.6 H Plt Count (130 - 400 /CUMM) 145 MPV (7.4 - 10.4 FL) 10.2 Gran % (42.2 - 75.2 %) 94.1 H Lymphocytes % (20.5 - 51.1 %) 3.1 L Monocytes % (1.7 - 9.3 %) 2.8 Eosinophils % (0 - 5 %) 0 Basophils % (0.0 - 2.0 %) 0 Absolute Granulocytes (1.4 - 6.5 /CUMM) 7.0 H Absolute Lymphocytes (1.2 - 3.4 /CUMM) 0.2 L Absolute Monocytes (0.10 - 0.60 /CUMM) 0.2 Absolute Eosinophils (0.0 - 0.7 /CUMM) 0 Absolute Basophils (0.0 - 0.2 /CUMM) 0 PUBS MCHC (33.0 - 37.0 G/DL) 31.8 L Miscellaneous Phlebotomy Draw Site LEFT RADIAL 05/28 05/27 05/27 0111 1096 7431 Blood Gas pH (7.35 - 7.45 PH) 7.25 *L pCO2 (35 - 45 TORR) 44 pO2 (80 - 100 TORR) 51 L HCO3 (21 - 28 MEQ/L) 19 L ABG O2 Sat (Measured) (>96.0 %) 79.0 L P-50 (Temp Corrected) Y Carboxyhemoglobin (1.5 - 5.0 %) 0.6 L O2 Concentration % 100% Temperature (97.0 - 100.0 FARH) 96.5 L Respiration Rate (BPM) 22 O2 Delivery Method VISION-FFM Vent Mode ST Expiratory Pressure (CM H2O P) 6 Inspiratory Pressure (CM H2O P) 20 Chemistry Sodium (137 - 145 mmol/L) 150 H 151 H Potassium (3.5 - 5.1 mmol/L) 4.2 3.3 L Chloride (98 - 107 mmol/L) 107 107 Carbon Dioxide (22 - 30 mmol/L) 26 27 Anion Gap (5 - 16) 17 H 17 H BUN (7 - 17 mg/dL) 39 H 38 H Creatinine (0.5 - 1.0 mg/dL) 1.0 1.1 H Estimated GFR (>60 ml/min) 53 L 47 L BUN/Creatinine Ratio (7 - 25 %) 34.5 H Glucose (65 - 99 mg/dL) 214 H Calcium (8.4 - 10.2 mg/dL) 8.2 L Phosphorus (2.5 - 4.5 mg/dL) 3.6 Magnesium (1.6 - 2.3 mg/dL) 1.8 Total Bilirubin (0.2 - 1.3 mg/dL) 0.5 AST (14 - 36 U/L) 16 ALT (9 - 52 U/L) 40 Albumin (3.5 - 5.0 g/dL) 3.8 Miscellaneous Phlebotomy Draw Site LEFT RADIAL
--- NOTE | 2017-05-28 07:54 | PN- Cardiology ---
See Addendum Subjective Subjective: Patient became hypoxic around 1 am, less responsive,hypotensive, bradycardic with rate in 40's and 50's. She received iv fluid bolus, required high flow oxygen. Now she is awake in mild distress. Review of Systems: 12 point ROS not obtainable Objective Vital Signs and I&Os Vital Signs Date Time Temp Pulse Resp B/P B/P Pulse O2 O2 Flow FiO2 Mean Ox Delivery Rate 05/28 0524 30 85/54 05/28 0500 114 96 05/28 0456 113 100 05/28 0148 95 BIPAP 100% 05/28 0131 100 95 05/27 2122 120 145/96 05/27 2121 115 145/96 05/27 2000 92 Nasal 100% Cannula 05/27 1917 97 Nasal 95% Cannula 05/27 1656 93 Nasal 70% Cannula 05/27 1600 90 Aerosol 50% Mask 05/27 1600 98.2 116 18 148/70 90 Aerosol 50% Mask 05/27 1531 117 154/77 05/27 1316 Nasal 6.0L Cannula 05/27 1313 92 Nasal 6.0L Cannula 05/27 1200 91 Aerosol 40% Mask 05/27 0910 125 188/98 05/27 0800 94 Aerosol 40% Mask 05/27 0800 98.1 123 24 138/94 94 Aerosol 40% Mask Intake & Output 05/28 0800 05/28 0000 05/27 1600 05/27 0800 05/27 0000 05/26 1600 Intake Total 1575 680 778 731 713 515 Output Total 433 264 6654 148 587 5379 Balance 1470 80 -572 481 13 -1185 Intake, IV 1575 680 778 731 713 415 Intake, Other 100 Number 1 0 0 1 2 Bowel Movements Output, Urine 847 342 3143 225 116 2952 Patient 274 lb Weight Weight Bed scale Measurement Method Physical Exam: HEENT-PERRLA Neck-right IJ removed, unable to assess JVP Lungs-diffuse bilateral rhonchi with decreased breath sounds at both bases Heart-S1S2 irregular, no murmur Abdomen-soft, obese, BS+, no organomegaly Ext-right UE PICC line with 1+ edema, chronic bilateral legs dermatitis diminished distal pulses Neuro-non focal skin-no rash Current Medications: Current Medications Sig/Ric Start time Last Medication Dose Route Stop Time Status Admin Acetaminophen 650 MG Q6P PRN 05/19 0300 AC PO Acetaminophen 1,000 MG Q6P PRN 05/19 0300 AC IV Albumin Human 25 GM Q8H 05/24 0822 AC 05/28 IV 0135 Albuterol Sulfate 3 ML Q4H PRN 05/27 1315 AC 05/27 INH 1306 Alprazolam 0.25 MG ONCE ONE 05/27 1215 CAN PO 05/27 1216 Alprazolam 0.25 MG ONCE ONE 05/27 1015 DC 05/27 PO 05/27 1016 1023 Amiodarone HCl 200 MG Q8 05/26 1400 AC 05/27 PO 2123 Apixaban 2.5 MG BID 05/26 1000 AC 05/27 PO 2123 Cefazolin Sodium 1,000 MG IQ8 05/27 1600 AC 05/28 IV 0135 Dextrose/Sodium 1,000 ML Q13H 05/26 1415 AC 05/27 Chloride IV 2124 Docusate Sodium 100 MG DAILY AC 05/23 0820 AC 05/25 PO 0523 Furosemide 40 MG 0845 05/27 0845 DC 05/27 IV 05/27 0846 0850 Glycerin 2 SPRAY Q2P PRN 05/27 0800 AC PO Glycerin/Mineral Oil 1 PEDRITO TID PRN 05/24 1100 AC TOP Hydrocortisone 75 MG Q8 05/27 1400 CAN Sodium Succinate IV Insulin Aspart 0 Q4H 05/21 1800 AC 05/28 SC 0529 Insulin Detemir 14 UNITS DAILY 05/27 1000 DC SC Insulin Detemir 7 UNITS DAILY 05/27 1000 AC 05/27 SC 1020 Metoprolol Tartrate 100 MG BID 05/27 1000 AC 05/27 PO 2122 Metoprolol Tartrate 50 MG .STK-MED ONE 05/27 0908 DC PO 05/27 0909 Metoprolol Tartrate 50 MG BID 05/25 1000 DC 05/26 PO 2102 Oxacillin Sodium 2,000 MG Q4 05/22 1400 DC 05/27 Sodium Chloride 100 ML IV 1020 Pantoprazole Sodium 40 MG DAILY 05/20 0030 AC 05/27 IV 0911 Polyethylene Glycol 17 GM DAILY 05/23 1000 AC 05/26 PO 1149 Potassium Chloride 20 MEQ Q1H 05/27 1815 DC 05/27 IV 05/27 1916 1944 Potassium Chloride 40 MEQ ONCE ONE 05/27 1800 CAN PO 05/27 1801 Potassium Chloride 20 MEQ ONCE ONE 05/27 0915 DC 05/27 IV 05/27 0916 0934 Potassium Chloride 40 MEQ ONCE ONE 05/27 0845 DC 05/27 PO 05/27 0846 0850 Potassium Chloride 10 MEQ Q1H 05/27 0745 DC IV 05/27 0846 Prednisone 80 MG DAILY 05/27 1145 AC 05/27 PO 1521 Sodium Chloride 1,000 ML BOLUS ONE 05/28 0530 DC 05/28 IV 05/28 0729 0524 Sodium Chloride 500 ML BOLUS ONE 05/28 0515 DC 05/28 IV 05/28 0614 0524 Results Last 48 Hrs of Labs/Mics: Laboratory Tests 05/28/17 0400: Anion Gap 16, Estimated GFR 47 L, Glucose 183 H, Calcium 7.7 L, Phosphorus 4.2, Magnesium 1.8, Total Bilirubin 0.5, AST 28, ALT 49, Albumin 3.4 L, TSH 0.285, Free T4 1.16, Total T3 0.47 L, PT 15.4 H, INR 1.47 H, APTT 37, CBC w Diff NO MAN DIFF REQ, RBC 2.68 L, MCV 93.2, MCH 29.6, RDW 21.6 H, MPV 10.2, Gran % 94.1 H, Lymphocytes % 3.1 L, Monocytes % 2.8, Eosinophils % 0, Basophils % 0, Absolute Granulocytes 7.0 H, Absolute Lymphocytes 0.2 L, Absolute Monocytes 0.2, Absolute Eosinophils 0, Absolute Basophils 0, PUBS MCHC 31.8 L 05/28/17 0255: pH 7.35, pCO2 40, pO2 73 L, HCO3 22, ABG O2 Sat (Measured) 93.0 L, P-50 (Temp Corrected) Y, Carboxyhemoglobin 0.5 L, O2 Concentration % 100%, Temperature 96.8 L, Respiration Rate 22, O2 Delivery Method VISION-FFM, Vent Mode ST, Expiratory Pressure 6, Inspiratory Pressure 20, Phlebotomy Draw Site LEFT RADIAL 05/28/17 0215: Lactic Acid 2.5 H 05/28/17 0111: pH 7.25 *L, pCO2 44, pO2 51 L, HCO3 19 L, ABG O2 Sat (Measured) 79.0 L, P-50 (Temp Corrected) Y, Carboxyhemoglobin 0.6 L, O2 Concentration % 100%, Temperature 96.5 L, Respiration Rate 22, O2 Delivery Method VISION-FFM, Vent Mode ST, Expiratory Pressure 6, Inspiratory Pressure 20, Phlebotomy Draw Site LEFT RADIAL 05/27/17 2130: Anion Gap 17 H, Estimated GFR 53 L, Glucose 214 H, Calcium 8.2 L, Phosphorus 3.6, Magnesium 1.8, Total Bilirubin 0.5, AST 16, ALT 40, Albumin 3.8 05/27/17 1445: Anion Gap 17 H, Estimated GFR 47 L, BUN/Creatinine Ratio 34.5 H 05/27/17 0400: Anion Gap 16, Estimated GFR 53 L, Glucose 126 H, Calcium 8.1 L, Phosphorus 3.5, Magnesium 1.9, Total Bilirubin 0.5, AST 17, ALT 37, Albumin 3.6, PT 12.3, INR 1.17, APTT 32, Fibrinogen Activity 148 L, CBC w Diff MAN DIFF ORDERED, RBC 3.09 L, MCV 91.8, MCH 29.1, RDW 21.0 H, MPV 10.0, Gran % 94.9 H, Lymphocytes % 3.5 L, Monocytes % 1.6 L, Eosinophils % 0, Basophils % 0, Absolute Granulocytes 8.2 H, Segmented Neutrophils 95 H, Band Neutrophils 1, Absolute Lymphocytes 0.3 L, Lymphocytes 2 L, Monocytes 1 L, Absolute Monocytes 0.1, Absolute Eosinophils 0, Absolute Basophils 0, Metamyelocytes 1, Platelet Estimate DECREASED, Hypochromic-Microcytic 1+, Poikilocytosis 1+, Anisocytosis 1 +, Ovalocytes 1+, PUBS MCHC 31.7 L 05/26/17 1135: pH 7.48 H, pCO2 35, pO2 76 L, HCO3 25, ABG O2 Sat (Measured) 94.0 L, Carboxyhemoglobin 0.3 L, O2 Concentration % 30%, Respiration Rate 28, O2 Delivery Method VENT, Vent Mode CPAP, Expiratory Pressure 5, Pressure Support 6, Phlebotomy Draw Site LEFT RADIAL Recent Imaging Studies: CXR-complete left lung opacification unchanged Tely AF currently 100-130 bpm Assessment/Plan Assessment/Plan 1. Acute hypoxic respiratory failure/septic shock secondary to MSSA PNA on Oxacillin Extubated 2 days ago. Developed episode of hypoxia, unresponsivness, bradycardia (in 40's) at night. Received iv fluids, BP, pulse now OK but requires 100% oxygen, CXR-?large pleural effusion, ?diffuse infiltrate 2. atrial fibrillation, rate back in 100's after transient episode of bradycardia 3. GARCÍA-creatinine improved 4.Thrombocytopenia/ITP, platelet count significantly improved 5. Significant hypernatremia Plan: hold Lasix today continue iv fluids 75 cc/hr chest CT without contrast, if effusion large, consider thoracenthesis increase free water intake continue amiodarone to 200 mg tid decrease metoprolol to 50 mg bid would not use cardizem now (may lower blood pressure more than beta blockers) hold Eliquis in case she need thoracenthesis Continue telemetry? Yes
[2017-05-28 08:00] VITALS: BP 140/90
--- NOTE | 2017-05-28 08:35 | PN- Hematology ---
Subjective Subjective: Her respiratory status remains tenuous. She was placed back on BiPAP due to unresponsiveness and hypoxia. She denies any new pain. Review of Systems: limited due to BiPAP Review of Systems Cardiovascular: Denies: chest pain. Respiratory: Reports: short of breath. Gastrointestinal: Denies: abdominal pain. All Other Systems: Reviewed and Negative Comments: limited Objective Vital Signs and I&Os Vital Signs Date Time Temp Pulse Resp B/P B/P Pulse O2 O2 Flow FiO2 Mean Ox Delivery Rate 05/28 0524 30 85/54 05/28 0500 114 96 05/28 0456 113 100 05/28 0148 95 BIPAP 100% 05/28 0131 100 95 05/27 212 120 145/96 05/27 212 115 145/96 05/27 2000 92 Nasal 100% Cannula 05/27 1917 97 Nasal 95% Cannula 05/27 1656 93 Nasal 70% Cannula 05/27 1600 90 Aerosol 50% Mask 05/27 1600 98.2 116 18 148/70 90 Aerosol 50% Mask 05/27 1531 117 154/77 05/27 1316 Nasal 6.0L Cannula 05/27 1313 92 Nasal 6.0L Cannula 05/27 1200 91 Aerosol 40% Mask 05/27 0910 125 188/98 Intake & Output 05/28 1600 05/28 0800 05/28 0000 05/27 1600 05/27 0800 05/27 0000 Intake Total 1575 680 778 731 713 Output Total 981 161 6890 250 700 Balance 1470 80 -572 481 13 Intake, IV 1575 680 778 731 713 Number 1 0 0 1 Bowel Movements Output, Urine 196 830 8688 250 700 Patient 124.426 kg Weight Weight Bed scale Measurement Method Physical Exam: General Appearance: somnolent and on BiPAP Ears, Nose, Throat: BiPAP in place Respiratory: chest non-tender, rhonchi Cardiovascular: tachycardia, irregularly irregular Abdomen: normal bowel sounds, soft, non-tender Extremities: bilateral upper extremity 2+ edema worse on the right side, ecchymoses in upper extremities, hyperpigmented lower extremities Neurologic/Psychiatric: awake Current Medications: Current Medications Sig/Ric Start time Last Medication Dose Route Stop Time Status Admin Acetaminophen 650 MG Q6P PRN 05/19 0300 AC PO Acetaminophen 1,000 MG Q6P PRN 05/19 0300 AC IV Albumin Human 25 GM Q8H 05/24 0822 AC 05/28 IV 0135 Albuterol Sulfate 3 ML Q4H PRN 05/27 1315 AC 05/27 INH 1306 Alprazolam 0.25 MG ONCE ONE 05/27 1215 CAN PO 05/27 1216 Alprazolam 0.25 MG ONCE ONE 05/27 1015 DC 05/27 PO 05/27 1016 1023 Amiodarone HCl 200 MG Q8 05/26 1400 AC 05/27 PO 2123 Apixaban 2.5 MG BID 05/26 1000 DC 05/27 PO 2123 Cefazolin Sodium 1,000 MG IQ8 05/27 1600 AC 05/28 IV 0135 Dextrose/Sodium 1,000 ML Q13H 05/26 1415 AC 05/27 Chloride IV 2124 Docusate Sodium 100 MG DAILY AC 05/23 0820 AC 05/25 PO 0523 Furosemide 40 MG 0845 05/27 0845 DC 05/27 IV 05/27 0846 0850 Glycerin 2 SPRAY Q2P PRN 05/27 0800 AC PO Glycerin/Mineral Oil 1 PEDRITO TID PRN 05/24 1100 AC TOP Hydrocortisone 75 MG Q8 05/27 1400 CAN Sodium Succinate IV Insulin Aspart 0 Q4H 05/21 1800 AC 05/28 SC 0529 Insulin Detemir 14 UNITS DAILY 05/27 1000 DC SC Insulin Detemir 7 UNITS DAILY 05/27 1000 AC 05/27 SC 1020 Metoprolol Tartrate 50 MG BID 05/28 1000 AC PO Metoprolol Tartrate 100 MG BID 05/27 1000 DC 05/27 PO 212 Metoprolol Tartrate 50 MG .STK-MED ONE 05/27 0908 DC PO 05/27 0909 Metoprolol Tartrate 50 MG BID 05/25 1000 DC 05/26 PO 2102 Oxacillin Sodium 2,000 MG Q4 05/22 1400 DC 05/27 Sodium Chloride 100 ML IV 1020 Pantoprazole Sodium 40 MG DAILY 05/20 0030 AC 05/27 IV 0911 Polyethylene Glycol 17 GM DAILY 05/23 1000 AC 05/26 PO 1149 Potassium Chloride 20 MEQ Q1H 05/27 1815 DC 05/27 IV 05/27 1916 1944 Potassium Chloride 40 MEQ ONCE ONE 05/27 1800 CAN PO 05/27 1801 Potassium Chloride 20 MEQ ONCE ONE 05/27 0915 DC 05/27 IV 05/27 0916 0934 Potassium Chloride 40 MEQ ONCE ONE 05/27 0845 DC 05/27 PO 05/27 0846 0850 Potassium Chloride 10 MEQ Q1H 05/27 0745 DC IV 05/27 0846 Prednisone 80 MG DAILY 05/27 1145 AC 05/27 PO 1521 Sodium Chloride 1,000 ML BOLUS ONE 05/28 0530 DC 05/28 IV 05/28 0729 0524 Sodium Chloride 500 ML BOLUS ONE 05/28 0515 DC 05/28 IV 05/28 0614 0524 Results Last 24 Hours of Lab Results: Laboratory Tests 05/28 05/28 05/28 0400 0255 0215 Blood Gas pH (7.35 - 7.45 PH) 7.35 pCO2 (35 - 45 TORR) 40 pO2 (80 - 100 TORR) 73 L HCO3 (21 - 28 MEQ/L) 22 ABG O2 Sat (Measured) (>96.0 %) 93.0 L P-50 (Temp Corrected) Y Carboxyhemoglobin (1.5 - 5.0 %) 0.5 L O2 Concentration % 100% Temperature (97.0 - 100.0 FARH) 96.8 L Respiration Rate (BPM) 22 O2 Delivery Method VISION-FFM Vent Mode ST Expiratory Pressure (CM H2O P) 6 Inspiratory Pressure (CM H2O P) 20 Chemistry Sodium (137 - 145 mmol/L) 151 H Potassium (3.5 - 5.1 mmol/L) 3.5 Chloride (98 - 107 mmol/L) 109 H Carbon Dioxide (22 - 30 mmol/L) 25 Anion Gap (5 - 16) 16 BUN (7 - 17 mg/dL) 42 H Creatinine (0.5 - 1.0 mg/dL) 1.1 H Estimated GFR (>60 ml/min) 47 L Glucose (65 - 99 mg/dL) 183 H Lactic Acid (0.7 - 2.1 mmol/L) 2.5 H Calcium (8.4 - 10.2 mg/dL) 7.7 L Phosphorus (2.5 - 4.5 mg/dL) 4.2 Magnesium (1.6 - 2.3 mg/dL) 1.8 Total Bilirubin (0.2 - 1.3 mg/dL) 0.5 AST (14 - 36 U/L) 28 ALT (9 - 52 U/L) 49 Albumin (3.5 - 5.0 g/dL) 3.4 L TSH (0.270 - 4.200 uIU/mL) 0.285 Free T4 (0.85 - 1.93 ng/dL) 1.16 Total T3 (0.97 - 1.69 ng/mL) 0.47 L Coagulation PT (9.4 - 12.5 SEC) 15.4 H INR (0.90 - 1.19) 1.47 H APTT (25 - 37 SEC) 37 Hematology CBC w Diff NO MAN DIFF REQ WBC (4.8 - 10.8 /CUMM) 7.4 RBC (4.20 - 5.40 /CUMM) 2.68 L Hgb (12.0 - 16.0 G/DL) 7.9 L Hct (37 - 47 %) 25.0 L MCV (81.0 - 99.0 FL) 93.2 MCH (27.0 - 31.0 PG) 29.6 RDW (11.5 - 14.5 %) 21.6 H Plt Count (130 - 400 /CUMM) 145 MPV (7.4 - 10.4 FL) 10.2 Gran % (42.2 - 75.2 %) 94.1 H Lymphocytes % (20.5 - 51.1 %) 3.1 L Monocytes % (1.7 - 9.3 %) 2.8 Eosinophils % (0 - 5 %) 0 Basophils % (0.0 - 2.0 %) 0 Absolute Granulocytes (1.4 - 6.5 /CUMM) 7.0 H Absolute Lymphocytes (1.2 - 3.4 /CUMM) 0.2 L Absolute Monocytes (0.10 - 0.60 /CUMM) 0.2 Absolute Eosinophils (0.0 - 0.7 /CUMM) 0 Absolute Basophils (0.0 - 0.2 /CUMM) 0 PUBS MCHC (33.0 - 37.0 G/DL) 31.8 L Miscellaneous Phlebotomy Draw Site LEFT RADIAL 05/28 05/27 05/27 6060 7498 6384 Blood Gas pH (7.35 - 7.45 PH) 7.25 *L pCO2 (35 - 45 TORR) 44 pO2 (80 - 100 TORR) 51 L HCO3 (21 - 28 MEQ/L) 19 L ABG O2 Sat (Measured) (>96.0 %) 79.0 L P-50 (Temp Corrected) Y Carboxyhemoglobin (1.5 - 5.0 %) 0.6 L O2 Concentration % 100% Temperature (97.0 - 100.0 FARH) 96.5 L Respiration Rate (BPM) 22 O2 Delivery Method VISION-FFM Vent Mode ST Expiratory Pressure (CM H2O P) 6 Inspiratory Pressure (CM H2O P) 20 Chemistry Sodium (137 - 145 mmol/L) 150 H 151 H Potassium (3.5 - 5.1 mmol/L) 4.2 3.3 L Chloride (98 - 107 mmol/L) 107 107 Carbon Dioxide (22 - 30 mmol/L) 26 27 Anion Gap (5 - 16) 17 H 17 H BUN (7 - 17 mg/dL) 39 H 38 H Creatinine (0.5 - 1.0 mg/dL) 1.0 1.1 H Estimated GFR (>60 ml/min) 53 L 47 L BUN/Creatinine Ratio (7 - 25 %) 34.5 H Glucose (65 - 99 mg/dL) 214 H Calcium (8.4 - 10.2 mg/dL) 8.2 L Phosphorus (2.5 - 4.5 mg/dL) 3.6 Magnesium (1.6 - 2.3 mg/dL) 1.8 Total Bilirubin (0.2 - 1.3 mg/dL) 0.5 AST (14 - 36 U/L) 16 ALT (9 - 52 U/L) 40 Albumin (3.5 - 5.0 g/dL) 3.8 Miscellaneous Phlebotomy Draw Site LEFT RADIAL Assessment/Plan Assessment/Recommendations: Ms. Christine is an 86-year-old female with chronic ITP, HTN, HLD, SC s/p PCI with stent, DM, and atrial fibrillation who presented with new hypoxia and cough. She has been having new cough a few days ago. CTA demonstrated moderate atelectasis/consolidation in the left upper and lower lobes. There was mild right base atelectasis and moderate left and [id number] right pleural effusions. She was briefly in shock and required Levophed. She is being treated for MSSA pneumonia with oxallicin. She is on stress dose steroid. She remains extubated but did have respiratory distress overnight. She is currently on BiPAP. Her platelet count is improving. Platelet count is 145,000 today. She was switched to prednisone 80 mg. If she is unable to take oral intake, she should be converted to IV steroid once again. Anemia is slightly worse without evidence of bleeding. She can be monitor for now. This does fluctuate. This may be related to fluid status. Acute hypoxic respiratory failure with shock likely from MSSA pneumonia: -continue management as per ICU -infectious disease following -oxallicin as per ID and primary Chronic ITP: -oral prednisone 80 mg daily (convert to IV if unable to take oral) -continues to monitor the fibrinogen and PT/PTT Daily -transfuse with cryo if fibrinogen <100 Atrial fibrillation with RVR: -cardiology following -currently on apixaban, amiodarone, and metoprolol Please call [phone] with any questions or concerns. Problem List: 1. Thrombocytopenia 2. Chronic anemia 3. Pneumonia 4. Atrial fibrillation with RVR
--- NOTE | 2017-05-28 11:05 | PN- Infect Dx ---
Subjective Subjective: Afebrile on steroids. She does not report any complaints but is now on BiPAP. She had an episode of unresponsiveness this morning, with bradycardia and hypoxia, with her ABG revealing a respiratory acidosis. Objective Last 24 Hrs of Vital Signs/I&O Vital Signs Date Time Temp Pulse Resp B/P B/P Pulse O2 O2 Flow FiO2 Mean Ox Delivery Rate 05/28 0954 92 Nasal 100% Cannula 05/28 0953 112 94 05/28 0926 120 158/90 05/28 08 97 BIPAP 70% 05/28 08 97.2 118 38 140/90 97 BIPAP 70% 05/28 0524 30 85/54 05/28 0500 114 96 05/28 0456 113 100 05/28 0148 95 BIPAP 100% 05/28 0131 100 95 05/27 212 120 145/96 05/27 212 115 145/96 05/27 2000 92 Nasal 100% Cannula 05/27 1917 97 Nasal 95% Cannula 05/27 1656 93 Nasal 70% Cannula 05/27 1600 90 Aerosol 50% Mask 05/27 1600 98.2 116 18 148/70 90 Aerosol 50% Mask 05/27 1531 117 154/77 05/27 1316 Nasal 6.0L Cannula 05/27 1313 92 Nasal 6.0L Cannula 05/27 1200 91 Aerosol 40% Mask Intake & Output 05/28 1600 05/28 0800 05/28 0000 Intake Total 1575 680 Output Total 105 600 Balance 1470 80 Intake, IV 1575 680 Number 1 0 Bowel Movements Output, Urine 105 600 Physical Exam Other Physical Findings: She is lethargic but arousable, on BiPAP Lungs bilateral rhonchi Heart irregular rhythm with no murmur Abdomen is obese, soft, nontender with positive bowel sounds Extremities chronic venous stasis changes both lower extremities Faust catheter remains in place Results Last 24 Hours of Lab Results: Laboratory Tests 05/28 05/28 05/28 0400 0255 0215 Blood Gas pH (7.35 - 7.45 PH) 7.35 pCO2 (35 - 45 TORR) 40 pO2 (80 - 100 TORR) 73 L HCO3 (21 - 28 MEQ/L) 22 ABG O2 Sat (Measured) (>96.0 %) 93.0 L P-50 (Temp Corrected) Y Carboxyhemoglobin (1.5 - 5.0 %) 0.5 L O2 Concentration % 100% Temperature (97.0 - 100.0 FARH) 96.8 L Respiration Rate (BPM) 22 O2 Delivery Method VISION-FFM Vent Mode ST Expiratory Pressure (CM H2O P) 6 Inspiratory Pressure (CM H2O P) 20 Chemistry Sodium (137 - 145 mmol/L) 151 H Potassium (3.5 - 5.1 mmol/L) 3.5 Chloride (98 - 107 mmol/L) 109 H Carbon Dioxide (22 - 30 mmol/L) 25 Anion Gap (5 - 16) 16 BUN (7 - 17 mg/dL) 42 H Creatinine (0.5 - 1.0 mg/dL) 1.1 H Estimated GFR (>60 ml/min) 47 L Glucose (65 - 99 mg/dL) 183 H Lactic Acid (0.7 - 2.1 mmol/L) 2.5 H Calcium (8.4 - 10.2 mg/dL) 7.7 L Phosphorus (2.5 - 4.5 mg/dL) 4.2 Magnesium (1.6 - 2.3 mg/dL) 1.8 Total Bilirubin (0.2 - 1.3 mg/dL) 0.5 AST (14 - 36 U/L) 28 ALT (9 - 52 U/L) 49 Albumin (3.5 - 5.0 g/dL) 3.4 L TSH (0.270 - 4.200 uIU/mL) 0.285 Free T4 (0.85 - 1.93 ng/dL) 1.16 Total T3 (0.97 - 1.69 ng/mL) 0.47 L Coagulation PT (9.4 - 12.5 SEC) 15.4 H INR (0.90 - 1.19) 1.47 H APTT (25 - 37 SEC) 37 Fibrinogen Activity (200 - 393 MG/DL) 165 L Hematology CBC w Diff NO MAN DIFF REQ WBC (4.8 - 10.8 /CUMM) 7.4 RBC (4.20 - 5.40 /CUMM) 2.68 L Hgb (12.0 - 16.0 G/DL) 7.9 L Hct (37 - 47 %) 25.0 L MCV (81.0 - 99.0 FL) 93.2 MCH (27.0 - 31.0 PG) 29.6 RDW (11.5 - 14.5 %) 21.6 H Plt Count (130 - 400 /CUMM) 145 MPV (7.4 - 10.4 FL) 10.2 Gran % (42.2 - 75.2 %) 94.1 H Lymphocytes % (20.5 - 51.1 %) 3.1 L Monocytes % (1.7 - 9.3 %) 2.8 Eosinophils % (0 - 5 %) 0 Basophils % (0.0 - 2.0 %) 0 Absolute Granulocytes (1.4 - 6.5 /CUMM) 7.0 H Absolute Lymphocytes (1.2 - 3.4 /CUMM) 0.2 L Absolute Monocytes (0.10 - 0.60 /CUMM) 0.2 Absolute Eosinophils (0.0 - 0.7 /CUMM) 0 Absolute Basophils (0.0 - 0.2 /CUMM) 0 PUBS MCHC (33.0 - 37.0 G/DL) 31.8 L Miscellaneous Phlebotomy Draw Site LEFT RADIAL 05/28 05/27 05/27 0111 2130 1445 Blood Gas pH (7.35 - 7.45 PH) 7.25 *L pCO2 (35 - 45 TORR) 44 pO2 (80 - 100 TORR) 51 L HCO3 (21 - 28 MEQ/L) 19 L ABG O2 Sat (Measured) (>96.0 %) 79.0 L P-50 (Temp Corrected) Y Carboxyhemoglobin (1.5 - 5.0 %) 0.6 L O2 Concentration % 100% Temperature (97.0 - 100.0 FARH) 96.5 L Respiration Rate (BPM) 22 O2 Delivery Method VISION-FFM Vent Mode ST Expiratory Pressure (CM H2O P) 6 Inspiratory Pressure (CM H2O P) 20 Chemistry Sodium (137 - 145 mmol/L) 150 H 151 H Potassium (3.5 - 5.1 mmol/L) 4.2 3.3 L Chloride (98 - 107 mmol/L) 107 107 Carbon Dioxide (22 - 30 mmol/L) 26 27 Anion Gap (5 - 16) 17 H 17 H BUN (7 - 17 mg/dL) 39 H 38 H Creatinine (0.5 - 1.0 mg/dL) 1.0 1.1 H Estimated GFR (>60 ml/min) 53 L 47 L BUN/Creatinine Ratio (7 - 25 %) 34.5 H Glucose (65 - 99 mg/dL) 214 H Calcium (8.4 - 10.2 mg/dL) 8.2 L Phosphorus (2.5 - 4.5 mg/dL) 3.6 Magnesium (1.6 - 2.3 mg/dL) 1.8 Total Bilirubin (0.2 - 1.3 mg/dL) 0.5 AST (14 - 36 U/L) 16 ALT (9 - 52 U/L) 40 Albumin (3.5 - 5.0 g/dL) 3.8 Miscellaneous Phlebotomy Draw Site LEFT RADIAL Last 24 Hours of Silvano Results: No new cultures Recent Imaging Studies: Chest x-ray May 28 reveals no change in the complete opacification of the left hemithorax Assessment/Plan Impression: Deterioration in her respiratory status, now requiring BiPAP, likely secondary to the complete opacification of the left hemithorax, which is likely secondary to collapse of the left lung, status post extubation 2 days ago. She remains afebrile with white blood cell count remaining normal (on steroids) now on Cefazolin (switched because of a shortage of Oxacillin) Day 10 of treatment for MSSA pneumonia. Suggestion: 1. Aggressive pulmonary toilet, with further management, for example bronchoscopy, if her respiratory status and chest x-ray do not improve 2. Correct hypernatremia 3. Further management of her fluid status per Cardiology 4. Continue Cefazolin
[2017-05-28 16:00] VITALS: BP 92/50
--- NOTE | 2017-05-28 18:09 | RADIOLOGY REPORT ---
EXAMINATION: CHEST 1 VIEW CLINICAL INFORMATION: Intubated. COMPARISON: Multiple prior exams are reviewed. The most recent is from the same day obtained at 0119 hours. TECHNIQUE: An AP view of the chest was obtained at 1724 hours. FINDINGS: An endotracheal tube is in place. The tip is approximately 5 cm above the krystal. An enteric tube is in place. The tip overlies the left upper quadrant, likely within the stomach. There is again near complete opacification of the left hemithorax. There is a small right pleural effusion with streaky airspace disease at the right lung base. IMPRESSION: Endotracheal tube and enteric tube in place. Persistent near complete opacification of the left hemithorax. Airspace and pleural disease at the right lung base.
[2017-05-29] VITALS: BP 128/70
[2017-05-29 05:02] LABS: PT 18.1 SEC (9.4-12.5); PTT 41 SEC (25-37)
[2017-05-29 05:03] LABS: ABSOLUTE BASOPHIL COUNT 0 /CUMM (0.0-0.2); ABSOLUTE EOSINOPHIL COUNT 0 /CUMM (0.0-0.7); ABSOLUTE GRANULOCYTE CT 4.7 /CUMM (1.4-6.5); ABSOLUTE LYMPH COUNT 0.3 /CUMM (1.2-3.4); ABSOLUTE MONOCYTE COUNT 0.1 /CUMM (0.10-0.60); BASOPHIL % 0 % (0.0-2.0); EOSINOPHIL % 0 % (0-5); GRANULOCYTE % 91.1 % (42.2-75.2); HEMATOCRIT 23.5 % (37-47); MEAN CORPUSCULAR HGB 29.4 PG (27.0-31.0); MEAN CORPUSCULAR HGB CONC 31.9 G/DL (33.0-37.0); MEAN PLATELET VOLUME 10.5 FL (7.4-10.4); PLATELET COUNT 149 /CUMM (130-400); RBC DISTRIBUTION WIDTH 21.4 % (11.5-14.5); RED BLOOD CELL CT 2.56 /CUMM (4.20-5.40); WHITE BLOOD CELL COUNT 5.2 /CUMM (4.8-10.8)
--- NOTE | 2017-05-29 07:02 | RADIOLOGY REPORT ---
EXAMINATION: XR PORTABLE CHEST CLINICAL INFORMATION: Pneumonia and pleural effusions COMPARISON: 05/28/2017 TECHNIQUE: Portable frontal view of the chest was obtained. FINDINGS: Since yesterday's exam there has been improvement in appearances. The near completely opacified left hemithorax now has aerated lung. Lung volumes bilaterally however are quite low. It is difficult to exclude the presence of pulmonary vascular congestion and sella some element of CHF. Bilateral pleural effusions are most likely present. An ET tube remains in place with its tip 4 cm above the krystal. An NG tube has its tip somewhere below the diaphragm. IMPRESSION: Improvement in appearances with decrease in size of left pleural effusion. Low lung volumes persist with bilateral pleural effusions remaining.
--- NOTE | 2017-05-29 07:06 | PN- Resident CRCU ---
Jaron RAMOS,[facility] 05/29/17 0706: Subjective HPI/CRCU Issues: Atrial Fibrilliation Hypotension Acute Hypoxic Respiratory Failure 24 Hour Events: Was reintubated yesterday to decrease the work of breathing and for anticipated bronchoscopy today. However, CXR this morning showed signficant improvement today and plans for bronchoscopy were aborted. OG tube was placed along with intubation and she has been restarted on Glucerna 1.2. Insulin regiment adjusted per Endo recs. Objective Vital Signs & I&O Last 8 Hrs of Vitals and I&O: . Exam General Appearance: comfortable, sedated, intubated, mild distress Head: atraumatic, normal appearance Respiratory: chest non-tender, rhonchi, wheezing Cardiovascular: irregularly irregular Gastrointestinal: soft, non-tender Extremities: bilateral lower extremity edema Skin: warm/dry, stasis skin changes Skin Temp/Moisture Exam: Warm/Dry Sepsis Skin Exam (color): Normal for Ethnicity Weaning Parameters NIF: 23 Minute Volume: 8.9 Resp rate: 25 Vt: 300 Heart Rate: 94 Weaning Schedule Start Time: 1025 Minute Volume: 9.6 Resp Rate: 27 Vt: 335 Heart Rate: 94 End Time: 1330 Minute Volume: 8.6 Resp Rate: 26 Vt: 300 Heart Rate: 90 Current Medications: Current Medications Sig/Ric Start time Last Medication Dose Route Stop Time Status Admin Acetaminophen 650 MG Q6P PRN 05/19 0300 AC PO Acetaminophen 1,000 MG Q6P PRN 05/19 0300 AC IV Acetylcysteine 2 ML EVERY 4 HRS/AWAKE 05/28 2000 AC 05/29 INH 1203 Acetylcysteine 2 ML BID 05/28 1229 DC INH Albumin Human 25 GM Q8H 05/24 0822 AC 05/29 IV 0748 Albuterol Sulfate 3 ML EVERY 4 HRS/AWAKE .. 05/28 1924 AC 05/29 INH 1202 Albuterol Sulfate 3 ML Q4H PRN 05/27 1315 DC 05/27 INH 1306 Amiodarone HCl 400 MG Q8 05/29 1400 AC 05/29 PO 1402 Amiodarone HCl 200 MG Q8 05/26 1400 DC 05/29 PO 0541 Apixaban 2.5 MG BID 05/28 2200 AC 05/29 PO 0936 Ascorbic Acid 500 MG DAILY 05/29 1000 AC 05/29 PO 0936 Cefazolin Sodium 1,000 MG IQ8 05/27 1600 AC 05/29 IV 0747 Dextrose/Sodium 1,000 ML Q13H 05/26 1415 DC 05/29 Chloride IV 0943 Docusate Sodium 100 MG DAILY AC 05/23 0820 AC 05/29 PO 0541 Furosemide 40 MG ONCE ONE 05/29 1015 DC 05/29 IV 05/29 1016 1106 Glycerin 2 SPRAY Q2P PRN 05/27 0800 AC PO Glycerin/Mineral Oil 1 PEDRITO TID PRN 05/24 1100 AC TOP Insulin Aspart 0 Q4H 05/21 1800 AC 05/29 SC 1419 Insulin Detemir 7 UNITS BID 05/29 2200 AC SC Insulin Detemir 7 UNITS DAILY 05/27 1000 DC 05/29 SC 1107 Metoprolol Tartrate 50 MG BID 05/28 2200 AC 05/29 PO 0936 Multivitamins 1 TAB DAILY 05/29 1000 AC 05/29 PO 0936 Norepinephrine 4 MG Q24H 05/28 1700 DC 05/28 Sodium Chloride 250 ML IV 1711 Norepinephrine 4 MG .STK-MED ONE 05/28 1647 DC IV 05/28 1648 Pantoprazole Sodium 40 MG DAILY 05/20 0030 AC 05/29 IV 0747 Polyethylene Glycol 17 GM DAILY 05/23 1000 AC 05/29 PO 0936 Prednisone 80 MG DAILY 05/27 1145 AC 05/29 PO 0936 Zinc Sulfate 220 MG DAILY 05/29 1000 AC 05/29 PO 0936 Impression/Plan Impression/Problem List Impression: 86 year old woman with past medical history of hypertension, hyperlipidemia, OR s/p PCI with stent, diabetes mellitus, and restless leg syndrome, history of atrial fibrillation with anticoagulation on hold due to severe thrombocytopenia was sent in from extended care facility for hypoxia, leukocytosis and productive cough. She was admitted on telemetry floor and transfered to ICU after patient desaturated became unresponsive. Assessment and Plan: Acute hypoxic respiratory failure likely secondary to HCAP: * Her white count has normalized and she's been afebrile. Her sputum culture is growing MSSA. * Continue IV Cefazolin 1gm q8. * Reintubated again on 05/28. * ID recs appreciated. * Her CXR today showed significant improvement. She appears to have a chronic collapse of her left lower lobe. Atrial Fibrilliation with Hypotension: * Will continue metoprolol at 50mg BID. * Increase oral Amiodarone at 400mg TID. * Continue Elliquis 2.5mg BID. * Levophed was discontinued on 05/20 as blood pressure had been stable. * Echo - Normal left ventricular ejection fraction visually estimated at > 60% . Immune Thrombocytopenia: * Her platelets continue to uptrend. * Continue daily Prednisone 80mg. * Daily CBC * s/p 1 unit transfusion of platelets 05/22. 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 * Her fibrinogen had been decreasing each day. Will continue to follow DIC panel * Recommendation to transfuse with cryoprecipitate if fibrinogen falls below 100. GARCÍA on CKD: * Cr 1.3 today. * Was likely contrast induced nephropathy initially. Unclear about current rise in Cr. * One dose of IV lasix 40mg given due to poor urine output. * Nephro recs appreciated. * Strict I&Os. Diabetes Mellitus: * Tube feeds restarted today with Glucerna 1.2 * Levemir 7mg BID * Insulin SS. Adjusted per Endo's recommendations. Lower Extremity Skin Changes: * Was evaluated by vascular surgery. Recommend no surgical intervention at this time. * Ulcer on left foot base. Consulted Dr Quinones. History of restless leg syndrome: * Sinemet was recently discontinued * Lyrica on hold currently. * Lubriderm to affected skin. DVT Prophylaxis: ALPS and Elliquis Code: Full Problem List: 1. A-fib Pain Ratin Tomorrow's Labs & Rationales: CBC, ICU bundle, DIC panel Plan DVT/Prophylaxis: Jordi Trujillo MD 05/29/17 1150: Attending MD Review Statement Attending Sign Off Attending Cosign Statement: I have: examined this patient, reviewed [facility] EMR data, personally reviewd images, discussd w/resident/PA/ENVIRONMENTAL AIDE, discussed mgmt plan w/ida, discussed mgmt plan w/CM, discussed mgmt plan w/pt, agreed w/resident/PA/ENVIRONMENTAL AIDE, amended to note. Other Findings: Impression 86 year old woman * resoloved septic shock * a.fib RVR * acute hypoxemic respiratory failure * GARCÍA improved Plan -reintubated -left opacity improved, aerated, no need for bronchoscopy today -abx per ID -cardiology, ID f/u -f/u hematology recommendations, stress steroids can be tapered per heme -endocrinology appreciated -nephrology consultation appreciated DVT prophylaxis at all times TTS 35 min DVT prophylaxis at all times TTS 35 min
--- NOTE | 2017-05-29 07:27 | PN- Cardiology ---
Subjective Subjective: Events noted, patient reintubated yesterday She is now comfortable, awake, no distress Review of Systems: ROS not obtainable Objective Vital Signs and I&Os Vital Signs Date Time Temp Pulse Resp B/P B/P Pulse O2 O2 Flow FiO2 Mean Ox Delivery Rate 05/29 0541 35 05/29 0541 134 152/76 05/29 0400 98 Ventilator 35% 05/29 0331 35 05/29 0050 35 05/29 0046 40 05/29 0000 97 Ventilator 40% 05/29 0000 97.5 124 14 128/70 97 Ventilator 40% 05/28 2342 129 139/96 05/28 2226 40 05/28 2222 132 107/79 05/28 1999 100 Ventilator 40% 05/28 1946 40 05/28 1838 40 05/28 1730 50 05/28 1711 110 61/37 05/28 1645 100 05/28 1600 100 BIPAP 100% 05/28 1600 96.9 96 26 92/50 100 BIPAP 100% 05/28 1500 101 102/60 05/28 1415 99 95 05/28 1230 112 94 05/28 1200 93 Nasal 100% Cannula 05/28 0954 92 Nasal 100% Cannula 05/28 0953 112 94 05/28 0926 120 158/90 05/28 0800 97 BIPAP 70% 05/28 0800 97.2 118 38 140/90 97 BIPAP 70% Intake & Output 05/29 0800 05/29 0000 05/28 1600 05/28 0800 05/28 0000 05/27 1600 Intake Total 794 643 412 2585 680 778 Output Total 200 200 120 316 469 2338 Balance 594 572 013 4984 80 -572 Intake, IV 654 936 373 4718 680 778 Intake, Oral 0 0 Intake, Other 140 Number 0 0 1 0 Bowel Movements Output, Urine 200 200 [phone] Patient 288 lb Weight Weight Bed scale Measurement Method Physical Exam: Intubated, NAD HEENT-PERRLA Neck-unable to assess JVP, no bruits Lungs-bilateral anterior rhonchi Heart-S1S2 irregular, no murmur Abdomen-soft, obese, not distended, BS+, no masses Extr-chronic dermatitis, trace edema +UE edema Neuro-awake, non focal skin-no rash Current Medications: Current Medications Sig/Ric Start time Last Medication Dose Route Stop Time Status Admin Acetaminophen 650 MG Q6P PRN 05/19 0300 AC PO Acetaminophen 1,000 MG Q6P PRN 05/19 0300 AC IV Acetylcysteine 2 ML EVERY 4 HRS/AWAKE 05/28 1999 AC 05/28 INH 195 Acetylcysteine 2 ML BID 05/28 1229 DC INH Albumin Human 25 GM Q8H 05/24 0822 AC 05/28 IV 2341 Albuterol Sulfate 3 ML EVERY 4 HRS/AWAKE .. 05/28 1924 AC 05/28 INH 195 Albuterol Sulfate 3 ML Q4H PRN 05/27 1315 DC 05/27 INH 1306 Amiodarone HCl 200 MG Q8 05/26 1400 AC 05/29 PO 0541 Apixaban 2.5 MG BID 05/28 2200 AC 05/28 PO 2342 Apixaban 2.5 MG BID 05/26 1000 DC 05/27 PO 2123 Ascorbic Acid 500 MG DAILY 05/29 1000 AC PO Cefazolin Sodium 1,000 MG IQ8 05/27 1600 AC 05/28 IV 2342 Dextrose/Sodium 1,000 ML Q13H 05/26 1415 AC 05/28 Chloride IV 2234 Docusate Sodium 100 MG DAILY AC 05/23 0820 AC 05/29 PO 0541 Furosemide 20 MG ONCE ONE 05/28 1200 DC 05/28 IV 05/28 1201 1240 Glycerin 2 SPRAY Q2P PRN 05/27 0800 AC PO Glycerin/Mineral Oil 1 PEDRITO TID PRN 05/24 1100 AC TOP Insulin Aspart 0 Q4H 05/21 1800 AC 05/29 SC 0204 Insulin Detemir 7 UNITS DAILY 05/27 1000 AC 05/28 SC 1032 Metoprolol Tartrate 50 MG BID 05/28 2200 AC 05/28 PO 2342 Metoprolol Tartrate 50 MG BID 05/28 1000 DC PO Metoprolol Tartrate 100 MG BID 05/28 1000 DC 05/28 PO 0926 Metoprolol Tartrate 100 MG BID 05/27 1000 DC 05/27 PO 2122 Multivitamins 1 TAB DAILY 05/29 1000 AC PO Norepinephrine 4 MG Q24H 05/28 1700 DC 05/28 Sodium Chloride 250 ML IV 1711 Norepinephrine 4 MG .STK-MED ONE 05/28 1647 DC IV 05/28 1648 Pantoprazole Sodium 40 MG DAILY 05/20 0030 AC 05/28 IV 0902 Polyethylene Glycol 17 GM DAILY 05/23 1000 AC 05/26 PO 1149 Potassium Chloride 20 MEQ ONCE ONE 05/28 0845 DC 05/28 IV 05/28 0846 0903 Potassium Chloride 40 MEQ ONCE ONE 05/28 0845 DC 05/28 PO 05/28 0846 0927 Prednisone 80 MG DAILY 05/27 1145 AC 05/28 PO 0926 Sodium Chloride 1,000 ML BOLUS ONE 05/28 0530 DC 05/28 IV 05/28 07 0524 Zinc Sulfate 220 MG DAILY 05/29 1000 AC PO Results Last 48 Hrs of Labs/Mics: Laboratory Tests 05/29/17 0445: pH 7.49 H, pCO2 30 L, pO2 73 L, HCO3 22, ABG O2 Sat (Measured) 93.0 L, P-50 (Temp Corrected) Y, Carboxyhemoglobin 0.4 L, O2 Concentration % 35%, Temperature 97.3, Respiration Rate 14, O2 Delivery Method ESPRIT, Vent Mode AC, Expiratory Pressure 5, Tidal Volume 500, Phlebotomy Draw Site LEFT RADIAL 05/29/17 0400: Anion Gap 16, Estimated GFR 39 L, Glucose 139 H, Calcium 8.3 L, Phosphorus 3.2, Magnesium 1.9, Total Bilirubin 0.5, AST 39 H, ALT 63 H, Albumin 3.2 L, PT 18.1 H, INR 1.73 H, APTT 41 H, Fibrinogen Activity 152 L, CBC w Diff MAN DIFF ORDERED, RBC 2.56 L, MCV 92.0, MCH 29.4, MCHC 31.9 L, RDW 21.4 H, MPV 10.5 H, Gran % 91.1 H, Lymphocytes % 6.1 L, Monocytes % 2.8, Eosinophils % 0, Basophils % 0, Absolute Granulocytes 4.7, Segmented Neutrophils 888 H, Band Neutrophils 1, Absolute Lymphocytes 0.3 L, Lymphocytes 7 L, Monocytes 4, Absolute Monocytes 0.1, Absolute Eosinophils 0, Absolute Basophils 0, Platelet Estimate ADEQUATE, Polychromasia 1+, Hypochromic-Microcytic 1+, Poikilocytosis 1 +, Ovalocytes 1+, Fld Total RBCs Counted 100 05/28/17 1910: pH 7.38, pCO2 36, pO2 96, HCO3 21, ABG O2 Sat (Measured) 97.0, P-50 (Temp Corrected) N, Carboxyhemoglobin 0.5 L, O2 Concentration % .40, Respiration Rate 14, O2 Delivery Method VENT, Vent Mode A/C, Expiratory Pressure 5, Tidal Volume 500, Phlebotomy Draw Site LEFT RADIAL 05/28/17 1205: pH 7.29 *L, pCO2 45, pO2 70 L, HCO3 21, ABG O2 Sat (Measured) 90.0 L, P-50 ( Temp Corrected) N, Carboxyhemoglobin 1.3 L, O2 Concentration % 100%, Temperature 97.2, O2 Delivery Method Pending, Phlebotomy Draw Site LEFT RADIAL 05/28/17 1145: Lactic Acid 1.3 05/28/17 0400: Anion Gap 16, Estimated GFR 47 L, Glucose 183 H, Calcium 7.7 L, Phosphorus 4.2, Magnesium 1.8, Total Bilirubin 0.5, AST 28, ALT 49, Albumin 3.4 L, TSH 0.285, Free T4 1.16, Total T3 0.47 L, PT 15.4 H, INR 1.47 H, APTT 37, Fibrinogen Activity 165 L, CBC w Diff NO MAN DIFF REQ, RBC 2.68 L, MCV 93.2, MCH 29.6, RDW 21.6 H, MPV 10.2, Gran % 94.1 H, Lymphocytes % 3.1 L, Monocytes % 2.8, Eosinophils % 0, Basophils % 0, Absolute Granulocytes 7.0 H, Absolute Lymphocytes 0.2 L, Absolute Monocytes 0.2, Absolute Eosinophils 0, Absolute Basophils 0, PUBS MCHC 31.8 L 05/28/17 0255: pH 7.35, pCO2 40, pO2 73 L, HCO3 22, ABG O2 Sat (Measured) 93.0 L, P-50 (Temp Corrected) Y, Carboxyhemoglobin 0.5 L, O2 Concentration % 100%, Temperature 96.8 L, Respiration Rate 22, O2 Delivery Method VISION-FFM, Vent Mode ST, Expiratory Pressure 6, Inspiratory Pressure 20, Phlebotomy Draw Site LEFT RADIAL 05/28/17 0215: Lactic Acid 2.5 H 05/28/17 0111: pH 7.25 *L, pCO2 44, pO2 51 L, HCO3 19 L, ABG O2 Sat (Measured) 79.0 L, P-50 (Temp Corrected) Y, Carboxyhemoglobin 0.6 L, O2 Concentration % 100%, Temperature 96.5 L, Respiration Rate 22, O2 Delivery Method VISION-FFM, Vent Mode ST, Expiratory Pressure 6, Inspiratory Pressure 20, Phlebotomy Draw Site LEFT RADIAL 05/27/170: Anion Gap 17 H, Estimated GFR 53 L, Glucose 214 H, Calcium 8.2 L, Phosphorus 3.6, Magnesium 1.8, Total Bilirubin 0.5, AST 16, ALT 40, Albumin 3.8 05/27/17 1445: Anion Gap 17 H, Estimated GFR 47 L, BUN/Creatinine Ratio 34.5 H Recent Imaging Studies: CXR-improved left lung aeration Assessment/Plan Assessment/Plan 1. Acute hypoxic respiratory failure/septic shock secondary to MSSA PNA on Oxacillin Extubated 3 days ago, now reintubated, CXR improved post intubation. Plan is for bronchoscopy today 2. atrial fibrillation, no recurrent bradycardia, rate in low 100's 3. GARCÍA-creatinine stable 4.Thrombocytopenia/ITP, platelet count significantly improved 5. Significant hypernatremia, patient is volume overloaded with third spacing. Her weight keeps increasing with positive fluid balance Plan: Lasix 40 mg iv today continue iv fluids 75 cc/hr D51/[address] without contrast, if effusion large, consider thoracenthesis agree with bronchoscopy increase free water intake continue amiodarone to 200 mg tid continue metoprolol to 50 mg bid Continue telemetry? Yes
--- NOTE | 2017-05-29 07:30 | PN- Diabetes ---
Assessment/Plan Assessment: Patient is now reintubated. She is on a respirator and sedated. Her steroid dose is prednisone 80 mg once a day. On 7 units of Levemir once a day. She is on IV fluids with D5 half-normal saline +20 mEq KCl at 75 cc/h. She is also on q. 4 hour NovoLog coverage. The patient's lab at 4 AM shows a serum sodium which is high at 151 and potassium low at 3.7. Most recent fingersticks are 184, and 149. The patient has abnormal thyroid function tests. They were felt to represent sick euthyroid as well as the effect of medication on her thyroid function tests. Thyroid function tests done today show a TSH of 0.285 and a total T3 of 0.47 with a free T4 of 1.16. Therefore her thyroid tests are becoming more normal.. Plan: Suggest continue the present insulin for now. The if the OG tube is in proper place we can use it to give free water to help bring the serum sodium down. If tube feedings are restarted then we will need to adjust her insulin. We could increase Levemir to 7 units twice a day and continue the sliding scale NovoLog. As the rate of tube feedings is increased we will probably need to increase the insulin back to the amounts previously given when she was on the tube feeding at 65 mL/h. This included Levemir 14 units twice a day. Subjective Subjective: Intubated and sedated Objective Last 24 Hrs of Vital Signs/I&O Vital Signs Date Time Temp Pulse Resp B/P B/P Pulse O2 O2 Flow FiO2 Mean Ox Delivery Rate 05/29 0541 35 05/29 0541 134 152/76 05/29 0400 98 Ventilator 35% 05/29 0331 35 05/29 0050 35 05/29 0046 40 05/29 0000 97 Ventilator 40% 05/29 0000 97.5 124 14 128/70 97 Ventilator 40% 05/28 2342 129 139/96 05/28 2226 40 05/28 2222 132 107/79 05/28 1999 100 Ventilator 40% 05/28 1946 40 05/28 1838 40 05/28 1730 50 05/28 1711 110 61/37 05/28 1645 100 05/28 1600 100 BIPAP 100% 05/28 1600 96.9 96 26 92/50 100 BIPAP 100% 05/28 1500 101 102/60 05/28 1415 99 95 05/28 1230 112 94 05/28 1200 93 Nasal 100% Cannula 05/28 0954 92 Nasal 100% Cannula 05/28 0953 112 94 05/28 0926 120 158/90 05/28 0800 97 BIPAP 70% 05/28 0800 97.2 118 38 140/90 97 BIPAP 70% Intake & Output 05/29 0800 05/29 0000 05/28 1600 Intake Total 794 749 730 Output Total 200 200 120 Balance 594 549 610 Intake, IV 654 749 730 Intake, Oral 0 0 Intake, Other 140 Number 0 0 Bowel Movements Output, Urine 200 200 120 Patient 288 lb Weight Weight Bed scale Measurement Method Vital Signs Date Time Temp Pulse Resp B/P B/P Pulse O2 O2 Flow FiO2 Mean Ox Delivery Rate 05/29 0541 35 05/29 0541 134 152/76 05/29 0400 98 Ventilator 35% 05/29 0331 35 05/29 0050 35 05/29 0046 40 05/29 0000 97 Ventilator 40% 05/29 0000 97.5 124 14 128/70 97 Ventilator 40% 05/28 2342 129 139/96 05/28 2226 40 05/28 2222 132 107/79 05/28 1999 100 Ventilator 40% 05/28 1946 40 05/28 1838 40 05/28 1730 50 05/28 1711 110 61/37 05/28 1645 100 05/28 1600 100 BIPAP 100% 05/28 1600 96.9 96 26 92/50 100 BIPAP 100% 05/28 1500 101 102/60 05/28 1415 99 95 05/28 1230 112 94 05/28 1200 93 Nasal 100% Cannula 05/28 0954 92 Nasal 100% Cannula 05/28 0953 112 94 05/28 0926 120 158/90 05/28 0800 97 BIPAP 70% 05/28 0800 97.2 118 38 140/90 97 BIPAP 70% Intake & Output 05/29 0800 05/29 0000 05/28 1600 Intake Total 794 749 730 Output Total 200 200 120 Balance 594 549 610 Intake, IV 654 749 730 Intake, Oral 0 0 Intake, Other 140 Number 0 0 Bowel Movements Output, Urine 200 200 120 Patient 288 lb Weight Weight Bed scale Measurement Method Current Medications: Current Medications Sig/Ric Start time Last Medication Dose Route Stop Time Status Admin Acetaminophen 650 MG Q6P PRN 05/19 0300 AC PO Acetaminophen 1,000 MG Q6P PRN 05/19 0300 AC IV Acetylcysteine 2 ML EVERY 4 HRS/AWAKE 05/28 1999 AC 05/28 INH 195 Acetylcysteine 2 ML BID 05/28 1229 DC INH Albumin Human 25 GM Q8H 05/24 0822 AC 05/28 IV 2341 Albuterol Sulfate 3 ML EVERY 4 HRS/AWAKE .. 05/28 1924 AC 05/28 INH 195 Albuterol Sulfate 3 ML Q4H PRN 05/27 1315 DC 05/27 INH 1306 Amiodarone HCl 200 MG Q8 05/26 1400 AC 05/29 PO 0541 Apixaban 2.5 MG BID 05/28 2200 AC 05/28 PO 2342 Apixaban 2.5 MG BID 05/26 1000 DC 05/27 PO 2123 Ascorbic Acid 500 MG DAILY 05/29 1000 AC PO Cefazolin Sodium 1,000 MG IQ8 05/27 1600 AC 05/28 IV 2342 Dextrose/Sodium 1,000 ML Q13H 05/26 1415 AC 05/28 Chloride IV 2234 Docusate Sodium 100 MG DAILY AC 05/23 0820 AC 05/29 PO 0541 Furosemide 20 MG ONCE ONE 05/28 1200 DC 05/28 IV 05/28 1201 1240 Glycerin 2 SPRAY Q2P PRN 05/27 0800 AC PO Glycerin/Mineral Oil 1 PEDRITO TID PRN 05/24 1100 AC TOP Insulin Aspart 0 Q4H 05/21 1800 AC 05/29 SC 0204 Insulin Detemir 7 UNITS DAILY 05/27 1000 AC 05/28 SC 1032 Metoprolol Tartrate 50 MG BID 05/28 2200 AC 05/28 PO 2342 Metoprolol Tartrate 50 MG BID 05/28 1000 DC PO Metoprolol Tartrate 100 MG BID 05/28 1000 DC 05/28 PO 0926 Metoprolol Tartrate 100 MG BID 05/27 1000 DC 05/27 PO 2122 Multivitamins 1 TAB DAILY 05/29 1000 AC PO Norepinephrine 4 MG Q24H 05/28 1700 DC 05/28 Sodium Chloride 250 ML IV 1711 Norepinephrine 4 MG .STK-MED ONE 05/28 1647 DC IV 05/28 1648 Pantoprazole Sodium 40 MG DAILY 01/16 0030 AC 05/28 IV 0902 Polyethylene Glycol 17 GM DAILY 05/23 1000 AC 05/26 PO 1149 Potassium Chloride 20 MEQ ONCE ONE 05/28 0845 DC 05/28 IV 05/28 0846 0903 Potassium Chloride 40 MEQ ONCE ONE 05/28 0845 DC 05/28 PO 05/28 0846 0927 Prednisone 80 MG DAILY 05/27 1145 AC 05/28 PO 0926 Zinc Sulfate 220 MG DAILY 05/29 1000 AC PO Findings Pertinent Lab/Silvano Results: Laboratory Tests 05/29 05/29 0445 0400 Blood Gas pH (7.35 - 7.45 PH) 7.49 H pCO2 (35 - 45 TORR) 30 L pO2 (80 - 100 TORR) 73 L HCO3 (21 - 28 MEQ/L) 22 ABG O2 Sat (Measured) (>96.0 %) 93.0 L P-50 (Temp Corrected) Y Carboxyhemoglobin (1.5 - 5.0 %) 0.4 L O2 Concentration % 35% Temperature (97.0 - 100.0 FARH) 97.3 Respiration Rate (BPM) 14 O2 Delivery Method ESPRIT Vent Mode AC Expiratory Pressure (CMH2O/P) 5 Tidal Volume (CC) 500 Chemistry Sodium (137 - 145 mmol/L) 151 H Potassium (3.5 - 5.1 mmol/L) 3.7 Chloride (98 - 107 mmol/L) 111 H Carbon Dioxide (22 - 30 mmol/L) 24 Anion Gap (5 - 16) 16 BUN (7 - 17 mg/dL) 46 H Creatinine (0.5 - 1.0 mg/dL) 1.3 H Estimated GFR (>60 ml/min) 39 L Glucose (65 - 99 mg/dL) 139 H Calcium (8.4 - 10.2 mg/dL) 8.3 L Phosphorus (2.5 - 4.5 mg/dL) 3.2 Magnesium (1.6 - 2.3 mg/dL) 1.9 Total Bilirubin (0.2 - 1.3 mg/dL) 0.5 AST (14 - 36 U/L) 39 H ALT (9 - 52 U/L) 63 H Albumin (3.5 - 5.0 g/dL) 3.2 L Coagulation PT (9.4 - 12.5 SEC) 18.1 H INR (0.90 - 1.19) 1.73 H APTT (25 - 37 SEC) 41 H Fibrinogen Activity (200 - 393 MG/DL) 152 L Hematology CBC w Diff MAN DIFF ORDERED WBC (4.8 - 10.8 /CUMM) 5.2 RBC (4.20 - 5.40 /CUMM) 2.56 L Hgb (12.0 - 16.0 G/DL) 7.5 L Hct (37 - 47 %) 23.5 L MCV (81.0 - 99.0 FL) 92.0 MCH (27.0 - 31.0 PG) 29.4 MCHC (33.0 - 37.0 G/DL) 31.9 L RDW (11.5 - 14.5 %) 21.4 H Plt Count (130 - 400 /CUMM) 149 MPV (7.4 - 10.4 FL) 10.5 H Gran % (42.2 - 75.2 %) 91.1 H Lymphocytes % (20.5 - 51.1 %) 6.1 L Monocytes % (1.7 - 9.3 %) 2.8 Eosinophils % (0 - 5 %) 0 Basophils % (0.0 - 2.0 %) 0 Absolute Granulocytes (1.4 - 6.5 /CUMM) 4.7 Segmented Neutrophils (42.2 - 75.2 %) 888 H Band Neutrophils (0.0 - 5.0 %) 1 Absolute Lymphocytes (1.2 - 3.4 /CUMM) 0.3 L Lymphocytes (20.5 - 51.1 %) 7 L Monocytes (1.7 - 9.3 %) 4 Absolute Monocytes (0.10 - 0.60 /CUMM) 0.1 Absolute Eosinophils (0.0 - 0.7 /CUMM) 0 Absolute Basophils (0.0 - 0.2 /CUMM) 0 Platelet Estimate (ADEQUATE) ADEQUATE Polychromasia 1+ Hypochromic-Microcytic 1+ Poikilocytosis 1+ Ovalocytes 1+ Miscellaneous Phlebotomy Draw Site LEFT RADIAL Other Body Source Fld Total RBCs Counted (%) 100 05/28 05/28 05/28 1910 1205 1145 Blood Gas pH (7.35 - 7.45 PH) 7.38 7.29 *L pCO2 (35 - 45 TORR) 36 45 pO2 (80 - 100 TORR) 96 70 L HCO3 (21 - 28 MEQ/L) 21 21 ABG O2 Sat (Measured) (>96.0 %) 97.0 90.0 L P-50 (Temp Corrected) N N Carboxyhemoglobin (1.5 - 5.0 %) 0.5 L 1.3 L O2 Concentration % .40 100% Temperature (97.0 - 100.0 FARH) 97.2 Respiration Rate (BPM) 14 O2 Delivery Method VENT Pending Vent Mode A/C Expiratory Pressure (CMH2O/P) 5 Tidal Volume (CC) 500 Chemistry Lactic Acid (0.7 - 2.1 mmol/L) 1.3 Miscellaneous Phlebotomy Draw Site LEFT RADIAL LEFT RADIAL
[2017-05-29 08:00] VITALS: BP 100/70
--- NOTE | 2017-05-29 09:52 | PN- Hematology ---
Subjective Subjective: She was intubated again overnight for hypoxia. She has no fever or chills. She has no complaints this morning. She is awake. Review of Systems: Unable to obtain secondary to intubation Objective Vital Signs and I&Os Vital Signs Date Time Temp Pulse Resp B/P B/P Pulse O2 O2 Flow FiO2 Mean Ox Delivery Rate 05/29 0936 132 122/80 05/29 0810 35 05/29 0541 35 05/29 0541 134 152/76 05/29 0400 98 Ventilator 35% 05/29 0331 35 05/29 0050 35 05/29 0046 40 05/29 0000 97 Ventilator 40% 05/29 0000 97.5 124 14 128/70 97 Ventilator 40% 05/28 2342 129 139/96 05/28 2226 40 05/28 2222 132 107/79 05/28 2000 100 Ventilator 40% 05/28 1946 40 05/28 1838 40 05/28 1730 50 05/28 1711 110 61/37 05/28 1645 100 05/28 1600 100 BIPAP 100% 05/28 1600 96.9 96 26 92/50 100 BIPAP 100% 05/28 1500 101 102/60 05/28 1415 99 95 05/28 1230 112 94 05/28 1200 93 Nasal 100% Cannula 05/28 0954 92 Nasal 100% Cannula 05/28 0953 112 94 Intake & Output 05/29 1600 05/29 0800 05/29 0000 05/28 1600 05/28 0800 05/28 0000 Intake Total 794 722 879 7448 680 Output Total 200 200 120 105 600 Balance 594 911 678 5812 80 Intake, IV 654 040 706 0337 680 Intake, Oral 0 0 Intake, Other 140 Number 0 0 1 0 Bowel Movements Output, Urine 200 200 120 105 600 Patient 130.436 kg Weight Weight Bed scale Measurement Method Physical Exam: General Appearance: somnolent , intubated Ears, Nose, Throat: ET tube in place Respiratory: chest non-tender, rhonchi Cardiovascular: tachycardia, irregularly irregular Abdomen: normal bowel sounds, soft, non-tender Extremities: bilateral upper extremity 2+ edema worse on the right side, ecchymoses in upper extremities, hyperpigmented lower extremities Neurologic/Psychiatric: awake but somnolent, intubated Current Medications: Current Medications Sig/Ric Start time Last Medication Dose Route Stop Time Status Admin Acetaminophen 650 MG Q6P PRN 05/19 0300 AC PO Acetaminophen 1,000 MG Q6P PRN 05/19 0300 IV Acetylcysteine 2 ML EVERY 4 HRS/AWAKE 05/28 2000 AC 05/29 INH 0814 Acetylcysteine 2 ML BID 05/28 1229 DC INH Albumin Human 25 GM Q8H 05/24 0822 05/29 IV 0748 Albuterol Sulfate 3 ML EVERY 4 HRS/AWAKE .. 05/28 1924 AC 05/29 INH 0814 Albuterol Sulfate 3 ML Q4H PRN 05/27 1315 DC 05/27 INH 1306 Amiodarone HCl 200 MG Q8 05/26 1400 AC 05/29 PO 0541 Apixaban 2.5 MG BID 05/28 2200 AC 05/29 PO 0936 Ascorbic Acid 500 MG DAILY 05/29 1000 AC 05/29 PO 0936 Cefazolin Sodium 1,000 MG IQ8 05/27 1600 05/29 IV 0747 Dextrose/Sodium 1,000 ML Q13H 05/26 1415 05/29 Chloride IV 0943 Docusate Sodium 100 MG DAILY AC 05/23 0820 05/29 PO 0541 Furosemide 20 MG ONCE ONE 05/28 1200 DC 05/28 IV 05/28 1201 1240 Glycerin 2 SPRAY Q2P PRN 05/27 0800 PO Glycerin/Mineral Oil 1 PEDRITO TID PRN 05/24 1100 TOP Insulin Aspart 0 Q4H 05/21 1800 05/29 SC 0204 Insulin Detemir 7 UNITS DAILY 05/27 1000 05/28 SC 1032 Metoprolol Tartrate 50 MG BID 05/28 2200 AC 05/29 PO 0936 Metoprolol Tartrate 100 MG BID 05/28 1000 DC 05/28 PO 0926 Multivitamins 1 TAB DAILY 05/29 1000 AC 05/29 PO 0936 Norepinephrine 4 MG Q24H 05/28 1700 DC 05/28 Sodium Chloride 250 ML IV 1711 Norepinephrine 4 MG .STK-MED ONE 05/28 1647 DC IV 05/28 1648 Pantoprazole Sodium 40 MG DAILY 05/20 0030 05/29 IV 0747 Polyethylene Glycol 17 GM DAILY 05/23 1000 AC 05/29 PO 0936 Prednisone 80 MG DAILY 05/27 1145 AC 05/29 PO 0936 Zinc Sulfate 220 MG DAILY 05/29 1000 AC 05/29 PO 0936 Results Last 24 Hours of Lab Results: Laboratory Tests 05/29 05/29 0445 0400 Blood Gas pH (7.35 - 7.45 PH) 7.49 H pCO2 (35 - 45 TORR) 30 L pO2 (80 - 100 TORR) 73 L HCO3 (21 - 28 MEQ/L) 22 ABG O2 Sat (Measured) (>96.0 %) 93.0 L P-50 (Temp Corrected) Y Carboxyhemoglobin (1.5 - 5.0 %) 0.4 L O2 Concentration % 35% Temperature (97.0 - 100.0 FARH) 97.3 Respiration Rate (BPM) 14 O2 Delivery Method ESPRIT Vent Mode AC Expiratory Pressure (CMH2O/P) 5 Tidal Volume (CC) 500 Chemistry Sodium (137 - 145 mmol/L) 151 H Potassium (3.5 - 5.1 mmol/L) 3.7 Chloride (98 - 107 mmol/L) 111 H Carbon Dioxide (22 - 30 mmol/L) 24 Anion Gap (5 - 16) 16 BUN (7 - 17 mg/dL) 46 H Creatinine (0.5 - 1.0 mg/dL) 1.3 H Estimated GFR (>60 ml/min) 39 L Glucose (65 - 99 mg/dL) 139 H Calcium (8.4 - 10.2 mg/dL) 8.3 L Phosphorus (2.5 - 4.5 mg/dL) 3.2 Magnesium (1.6 - 2.3 mg/dL) 1.9 Total Bilirubin (0.2 - 1.3 mg/dL) 0.5 AST (14 - 36 U/L) 39 H ALT (9 - 52 U/L) 63 H Albumin (3.5 - 5.0 g/dL) 3.2 L Coagulation PT (9.4 - 12.5 SEC) 18.1 H INR (0.90 - 1.19) 1.73 H APTT (25 - 37 SEC) 41 H Fibrinogen Activity (200 - 393 MG/DL) 152 L Hematology CBC w Diff MAN DIFF ORDERED WBC (4.8 - 10.8 /CUMM) 5.2 RBC (4.20 - 5.40 /CUMM) 2.56 L Hgb (12.0 - 16.0 G/DL) 7.5 L Hct (37 - 47 %) 23.5 L MCV (81.0 - 99.0 FL) 92.0 MCH (27.0 - 31.0 PG) 29.4 MCHC (33.0 - 37.0 G/DL) 31.9 L RDW (11.5 - 14.5 %) 21.4 H Plt Count (130 - 400 /CUMM) 149 MPV (7.4 - 10.4 FL) 10.5 H Gran % (42.2 - 75.2 %) 91.1 H Lymphocytes % (20.5 - 51.1 %) 6.1 L Monocytes % (1.7 - 9.3 %) 2.8 Eosinophils % (0 - 5 %) 0 Basophils % (0.0 - 2.0 %) 0 Absolute Granulocytes (1.4 - 6.5 /CUMM) 4.7 Segmented Neutrophils (42.2 - 75.2 %) 888 H Band Neutrophils (0.0 - 5.0 %) 1 Absolute Lymphocytes (1.2 - 3.4 /CUMM) 0.3 L Lymphocytes (20.5 - 51.1 %) 7 L Monocytes (1.7 - 9.3 %) 4 Absolute Monocytes (0.10 - 0.60 /CUMM) 0.1 Absolute Eosinophils (0.0 - 0.7 /CUMM) 0 Absolute Basophils (0.0 - 0.2 /CUMM) 0 Platelet Estimate (ADEQUATE) ADEQUATE Polychromasia 1+ Hypochromic-Microcytic 1+ Poikilocytosis 1+ Ovalocytes 1+ Miscellaneous Phlebotomy Draw Site LEFT RADIAL Other Body Source Fld Total RBCs Counted (%) 100 05/28 05/28 05/28 1910 1205 1145 Blood Gas pH (7.35 - 7.45 PH) 7.38 7.29 *L pCO2 (35 - 45 TORR) 36 45 pO2 (80 - 100 TORR) 96 70 L HCO3 (21 - 28 MEQ/L) 21 21 ABG O2 Sat (Measured) (>96.0 %) 97.0 90.0 L P-50 (Temp Corrected) N N Carboxyhemoglobin (1.5 - 5.0 %) 0.5 L 1.3 L O2 Concentration % .40 100% Temperature (97.0 - 100.0 FARH) 97.2 Respiration Rate (BPM) 14 O2 Delivery Method VENT Pending Vent Mode A/C Expiratory Pressure (CMH2O/P) 5 Tidal Volume (CC) 500 Chemistry Lactic Acid (0.7 - 2.1 mmol/L) 1.3 Miscellaneous Phlebotomy Draw Site LEFT RADIAL LEFT RADIAL Assessment/Plan Assessment/Recommendations: Ms. Christine is an 86-year-old female with chronic ITP, HTN, HLD, NV s/p PCI with stent, DM, and atrial fibrillation who presented with new hypoxia and cough. She has been having new cough a few days ago. CTA demonstrated moderate atelectasis/consolidation in the left upper and lower lobes. There was mild right base atelectasis and moderate left and [id number] right pleural effusions. She was briefly in shock and required Levophed. She is being treated for MSSA pneumonia with oxallicin. She is on stress dose steroid. She was reintubated yesterday. Clinically stable today. Plan for bronchoscopy today. Blood work was obtained and reviewed today. Her white count was 5.2. Hemoglobin was 7.5 with hematocrit of 23.5. Platelet count is 149,000. She has some monitor her anemia closely. She may need transfusion given her cardiac issues. For now, she will continue current prednisone dosing. Further respiratory management as per the ICU team. She is on antibiotic for the MSSA pneumonia. Acute hypoxic respiratory failure with shock likely from MSSA pneumonia: - continue management as per ICU - infectious disease following - antibiotics as per primary and ID Chronic ITP: - continue prednisone 80 mg daily (convert to IV if unable to take oral) - continues to monitor the fibrinogen and PT/PTT Daily - transfuse with cryo if fibrinogen <100 Atrial fibrillation with RVR: -cardiology following -currently receiving apixaban, amiodarone, and metoprolol Please call [phone] with any questions or concerns. Problem List: 1. Pneumonia 2. Atrial fibrillation with RVR 3. Thrombocytopenia 4. Symptomatic anemia
--- NOTE | 2017-05-29 10:41 | PN- Infect Dx ---
Subjective Subjective: Afebrile on steroids. She was reintubated yesterday in preparation for a possible bronchoscopy. She offers no complaints at this time. Objective Last 24 Hrs of Vital Signs/I&O Vital Signs Date Time Temp Pulse Resp B/P B/P Pulse O2 O2 Flow FiO2 Mean Ox Delivery Rate 05/29 0936 132 122/80 05/29 0810 35 05/29 0800 97 Ventilator 35% 05/29 0800 97.3 119 18 100/70 97 Ventilator 35% 05/29 0541 35 05/29 0541 134 152/76 05/29 0400 98 Ventilator 35% 05/29 0331 35 05/29 0050 35 05/29 0046 40 05/29 0000 97 Ventilator 40% 05/29 0000 97.5 124 14 128/70 97 Ventilator 40% 05/28 2342 129 139/96 05/28 2226 40 05/28 2222 132 107/79 05/28 2000 100 Ventilator 40% 05/28 1946 40 05/28 1838 40 05/28 1730 50 05/28 1711 110 61/37 05/28 1645 100 05/28 1600 100 BIPAP 100% 05/28 1600 96.9 96 26 92/50 100 BIPAP 100% 05/28 1500 101 102/60 05/28 1415 99 95 05/28 1230 112 94 05/28 1200 93 Nasal 100% Cannula Intake & Output 05/29 1600 05/29 0800 05/29 0000 Intake Total 794 749 Output Total 200 200 Balance 594 549 Intake, IV 654 749 Intake, Oral 0 0 Intake, Other 140 Number 0 0 Bowel Movements Output, Urine 200 200 Patient 288 lb Weight Weight Bed scale Measurement Method Physical Exam Other Physical Findings: She appears comfortable on the ventilator in no acute distress Lungs scattered rhonchi bilaterally Heart regular rhythm with no murmur Extremities PICC in the right upper extremity with no inflammation at the site; chronic venous stasis changes both lower extremities Faust catheter remains in place Results Last 24 Hours of Lab Results: Laboratory Tests 05/29 05/29 0445 0400 Blood Gas pH (7.35 - 7.45 PH) 7.49 H pCO2 (35 - 45 TORR) 30 L pO2 (80 - 100 TORR) 73 L HCO3 (21 - 28 MEQ/L) 22 ABG O2 Sat (Measured) (>96.0 %) 93.0 L P-50 (Temp Corrected) Y Carboxyhemoglobin (1.5 - 5.0 %) 0.4 L O2 Concentration % 35% Temperature (97.0 - 100.0 FARH) 97.3 Respiration Rate (BPM) 14 O2 Delivery Method ESPRIT Vent Mode AC Expiratory Pressure (CMH2O/P) 5 Tidal Volume (CC) 500 Chemistry Sodium (137 - 145 mmol/L) 151 H Potassium (3.5 - 5.1 mmol/L) 3.7 Chloride (98 - 107 mmol/L) 111 H Carbon Dioxide (22 - 30 mmol/L) 24 Anion Gap (5 - 16) 16 BUN (7 - 17 mg/dL) 46 H Creatinine (0.5 - 1.0 mg/dL) 1.3 H Estimated GFR (>60 ml/min) 39 L Glucose (65 - 99 mg/dL) 139 H Calcium (8.4 - 10.2 mg/dL) 8.3 L Phosphorus (2.5 - 4.5 mg/dL) 3.2 Magnesium (1.6 - 2.3 mg/dL) 1.9 Total Bilirubin (0.2 - 1.3 mg/dL) 0.5 AST (14 - 36 U/L) 39 H ALT (9 - 52 U/L) 63 H Albumin (3.5 - 5.0 g/dL) 3.2 L Coagulation PT (9.4 - 12.5 SEC) 18.1 H INR (0.90 - 1.19) 1.73 H APTT (25 - 37 SEC) 41 H Fibrinogen Activity (200 - 393 MG/DL) 152 L Hematology CBC w Diff MAN DIFF ORDERED WBC (4.8 - 10.8 /CUMM) 5.2 RBC (4.20 - 5.40 /CUMM) 2.56 L Hgb (12.0 - 16.0 G/DL) 7.5 L Hct (37 - 47 %) 23.5 L MCV (81.0 - 99.0 FL) 92.0 MCH (27.0 - 31.0 PG) 29.4 MCHC (33.0 - 37.0 G/DL) 31.9 L RDW (11.5 - 14.5 %) 21.4 H Plt Count (130 - 400 /CUMM) 149 MPV (7.4 - 10.4 FL) 10.5 H Gran % (42.2 - 75.2 %) 91.1 H Lymphocytes % (20.5 - 51.1 %) 6.1 L Monocytes % (1.7 - 9.3 %) 2.8 Eosinophils % (0 - 5 %) 0 Basophils % (0.0 - 2.0 %) 0 Absolute Granulocytes (1.4 - 6.5 /CUMM) 4.7 Segmented Neutrophils (42.2 - 75.2 %) 888 H Band Neutrophils (0.0 - 5.0 %) 1 Absolute Lymphocytes (1.2 - 3.4 /CUMM) 0.3 L Lymphocytes (20.5 - 51.1 %) 7 L Monocytes (1.7 - 9.3 %) 4 Absolute Monocytes (0.10 - 0.60 /CUMM) 0.1 Absolute Eosinophils (0.0 - 0.7 /CUMM) 0 Absolute Basophils (0.0 - 0.2 /CUMM) 0 Platelet Estimate (ADEQUATE) ADEQUATE Polychromasia 1+ Hypochromic-Microcytic 1+ Poikilocytosis 1+ Ovalocytes 1+ Miscellaneous Phlebotomy Draw Site LEFT RADIAL Other Body Source Fld Total RBCs Counted (%) 100 05/28 05/28 05/28 1910 1205 1145 Blood Gas pH (7.35 - 7.45 PH) 7.38 7.29 *L pCO2 (35 - 45 TORR) 36 45 pO2 (80 - 100 TORR) 96 70 L HCO3 (21 - 28 MEQ/L) 21 21 ABG O2 Sat (Measured) (>96.0 %) 97.0 90.0 L P-50 (Temp Corrected) N N Carboxyhemoglobin (1.5 - 5.0 %) 0.5 L 1.3 L O2 Concentration % .40 100% Temperature (97.0 - 100.0 FARH) 97.2 Respiration Rate (BPM) 14 O2 Delivery Method VENT Pending Vent Mode A/C Expiratory Pressure (CMH2O/P) 5 Tidal Volume (CC) 500 Chemistry Lactic Acid (0.7 - 2.1 mmol/L) 1.3 Miscellaneous Phlebotomy Draw Site LEFT RADIAL LEFT RADIAL Last 24 Hours of Silvano Results: No new cultures Recent Imaging Studies: Chest x-ray May 29 reveals improvement in the aeration of the left lung Assessment/Plan Impression: Stable status post reintubation yesterday for a collapse of her left lung, with evidence of reexpansion on today's chest x-ray. A bronchoscopy was initially anticipated, but it is apparently to be deferred given her improvement. She remains afebrile with white blood cell count remaining normal (on steroids) on Cefazolin Day 11 of treatment for MSSA pneumonia. Suggestion: 1. Further management of her respiratory status per Pulmonary, with aggressive pulmonary toilet if she is again extubated 2. Correct hypernatremia 3. Continue Cefazolin
[2017-05-29 16:00] VITALS: BP 122/80
--- NOTE | 2017-05-29 19:14 | Event Note ---
Event Note Event Note: Patient is constantly having tachycardia in the range of 140-150. She was asymptomatic. Maintaining her saturation in the range of 93-95 percent. We gave IV metoprolol 5 milligrams 2 times. Despite her heart rate remained elevated in the range of 130-140. Discussed with Dr. Longo over the phone, he advised to start the patient on Cardizem drip.
[2017-05-30] VITALS: BP 128/80
[2017-05-30 04:49] LABS: ABSOLUTE BASOPHIL COUNT 0 /CUMM (0.0-0.2); ABSOLUTE EOSINOPHIL COUNT 0 /CUMM (0.0-0.7); ABSOLUTE GRANULOCYTE CT 7.9 /CUMM (1.4-6.5); ABSOLUTE LYMPH COUNT 0.4 /CUMM (1.2-3.4); ABSOLUTE MONOCYTE COUNT 0.1 /CUMM (0.10-0.60); EOSINOPHIL % 0 % (0-5); MEAN PLATELET VOLUME 10.5 FL (7.4-10.4)
[2017-05-30 05:19] LABS: BASOPHIL % 0.2 % (0.0-2.0); HEMATOCRIT 25.7 % (37-47); MEAN CORPUSCULAR HGB 28.9 PG (27.0-31.0); MEAN CORPUSCULAR HGB CONC 31.4 G/DL (33.0-37.0); RBC DISTRIBUTION WIDTH 22.2 % (11.5-14.5)
[2017-05-30 05:44] LABS: WHITE BLOOD CELL COUNT 8.4 /CUMM (4.8-10.8)
[2017-05-30 05:45] LABS: PLATELET COUNT 195 /CUMM (130-400)
[2017-05-30 05:46] LABS: GRANULOCYTE % 93.8 % (42.2-75.2)
[2017-05-30 06:00] LABS: PTT 40 SEC (25-37)
--- NOTE | 2017-05-30 07:16 | PN- Resident CRCU ---
See Addendum Subjective HPI/CRCU Issues: Atrial Fibrilliation Hypotension Acute Hypoxic Respiratory Failure 24 Hour Events: Persistently elevated heart rate and blood pressure yesterday for which she received 5mg x 2 lopressor and subsequently started on Cardizem drip at 2.5mg/ hr. Her heart rate and blood pressure has been reasonably well controlled since. Urine output has been better over the past 24 hours. Objective Vital Signs & I&O Last 8 Hrs of Vitals and I&O: . Exam General Appearance: awake, sedated, intubated, mild distress Head: atraumatic, normal appearance Respiratory: normal breath sounds, chest non-tender, wheezing Cardiovascular: regular rate/rhythm Gastrointestinal: soft, non-tender Extremities: pedal edema, swelling Cranial Nerves: normal hearing Skin: small ulcer on left foot Skin Temp/Moisture Exam: Warm/Dry Sepsis Skin Exam (color): Normal for Ethnicity Weaning Parameters NIF: 23 Minute Volume: 8.9 Resp rate: 25 Vt: 300 Heart Rate: 94 Weaning Schedule Start Time: 1025 Minute Volume: 9.6 Resp Rate: 27 Vt: 335 Heart Rate: 94 End Time: 1330 Minute Volume: 8.6 Resp Rate: 26 Vt: 300 Heart Rate: 90 Current Medications: Current Medications Sig/Ric Start time Last Medication Dose Route Stop Time Status Admin Acetaminophen 650 MG Q6P PRN 05/19 0300 AC PO Acetaminophen 1,000 MG Q6P PRN 05/19 0300 AC IV Acetylcysteine 2 ML EVERY 4 HRS/AWAKE 05/28 2000 AC 05/30 INH 0818 Albumin Human 25 GM Q8H 05/24 0822 AC 05/30 IV 0746 Albuterol Sulfate 3 ML EVERY 4 HRS/AWAKE 05/30 0800 AC 05/30 INH 0818 Albuterol Sulfate 3 ML EVERY 4 HRS/AWAKE .. 05/28 1924 DC 05/29 INH 05/30 0759 2020 Amiodarone HCl 200 MG Q8 05/30 1400 AC PO Amiodarone HCl 400 MG Q8 05/29 1400 DC 05/30 PO 0546 Apixaban 2.5 MG BID 05/28 2200 AC 05/30 PO 0856 Artificial Tears 2 GTT 4 TIMES/DAY PRN 05/30 0745 AC OPH Ascorbic Acid 500 MG DAILY 05/29 1000 AC 05/30 PO 0908 Cefazolin Sodium 1,000 MG IQ8 05/27 1600 AC 05/30 IV 0746 Dextrose/Sodium 1,000 ML Q13H 05/26 1415 DC 05/29 Chloride IV 0943 Diltiazem HCl 125 MG Q16H 05/30 1200 CAN Dextrose/Water 100 ML IV Diltiazem HCl 25 MG .STK-MED ONE 05/29 1940 DC IV 05/29 1941 Diltiazem HCl 125 MG Q24H 05/29 1915 AC 05/29 Dextrose/Water 100 ML IV 05/30 1159 1958 Docusate Sodium 100 MG DAILY AC 05/23 0820 AC 05/29 PO 0541 Furosemide 40 MG BID 05/30 2200 UNVr IV Furosemide 40 MG ONCE ONE 05/30 0845 DC 05/30 IV 05/30 0846 0856 Glycerin 2 SPRAY Q2P PRN 05/27 0800 AC PO Glycerin/Mineral Oil 1 PEDRITO TID PRN 05/24 1100 AC TOP Insulin Aspart 0 Q4H 05/21 1800 AC 05/30 SC 1053 Insulin Detemir 8 UNITS BID 05/30 1000 AC 05/30 SC 1053 Insulin Detemir 7 UNITS BID 05/29 2200 DC 05/29 SC 2104 Insulin Detemir 7 UNITS DAILY 05/27 1000 DC 05/29 SC 1107 Magnesium Sulfate 1 GM ONCE ONE 05/30 0730 05/30 Dextrose/Water 100 ML IV 05/30 1129 0746 Metoprolol Tartrate 75 MG ONCE ONE 05/30 1030 DC 05/30 PO 05/30 1031 1052 Metoprolol Tartrate 100 MG BID 05/30 1000 AC PO Metoprolol Tartrate 10 MG ONCE ONE 05/29 2215 DC 05/29 IV 05/29 2216 2217 Metoprolol Tartrate 5 MG ONCE ONE 05/29 1915 DC 05/29 IV 05/29 1916 1840 Metoprolol Tartrate 5 MG ONCE ONE 05/29 1815 DC 05/29 IV 05/29 1816 1831 Metoprolol Tartrate 50 MG BID 05/28 2200 DC 05/29 PO 2104 Multivitamins 1 TAB DAILY 05/29 1000 AC 05/30 PO 0856 Pantoprazole Sodium 40 MG DAILY 05/20 0030 AC 05/30 IV 0746 Polyethylene Glycol 17 GM DAILY 05/23 1000 AC 05/29 PO 0936 Potassium Chloride 20 MEQ ONCE ONE 05/30 0630 DC 05/30 IV 05/30 0631 0636 Prednisone 70 MG DAILY 05/31 1000 AC PO Prednisone 80 MG DAILY 05/27 1145 DC 05/30 PO 0856 Zinc Sulfate 220 MG DAILY 05/29 1000 AC 05/30 PO 0857 Impression/Plan Impression/Problem List Impression: 86 year old woman with past medical history of hypertension, hyperlipidemia, [place] s/p PCI with stent, diabetes mellitus, and restless leg syndrome, history of atrial fibrillation with anticoagulation on hold due to severe thrombocytopenia was sent in from extended care facility for hypoxia, leukocytosis and productive cough. She was admitted on telemetry floor and transfered to ICU after patient desaturated became unresponsive. Assessment and Plan: Acute hypoxic respiratory failure likely secondary to HCAP: * Her white count has normalized and she's been afebrile. Her sputum culture is growing MSSA. * Will obtain repeat sputum culture. * Continue IV Cefazolin 1gm q8. Will continue it for 2 more days. * Reintubated again on 05/28. * ID recs appreciated. * Continue mucomist BID nebs and aggressive pulmonary toilet. * Will increase diuresis with IV Lasix 40mg BID. Atrial Fibrilliation with Hypotension: * Will increase metoprolol 100mg BID. Gave 75mg this morning to avoid risk of hypotension. * Decrease oral Amiodarone at 200mg TID. * Continue Elliquis 2.5mg BID. * She was started on Cardizem drip overnight for rate/bp control. Currently off it. * Echo - Normal left ventricular ejection fraction visually estimated at > 60% . Immune Thrombocytopenia: * Her platelets continue to uptrend. * Decrease Prednisone to 70mg per hematology as her Plt >150K * Daily CBC * s/p 1 unit transfusion of platelets 05/22. 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 * No need to further follow DIC panel. GARCÍA on CKD: /resolved * Cr 1.3 today. * Was likely contrast induced nephropathy initially. Unclear about current rise in Cr. * One dose of IV lasix 40mg given due to poor urine output. * Nephro recs appreciated. * Strict I&Os. Diabetes Mellitus: * Contineu tube feeds with Glucerna 1.2. Will increase volume of flush to correct hypernatremia. * Levemir 8mg BID * Insulin SS. Adjusted per Endo's recommendations. Lower Extremity Skin Changes: * Was evaluated by vascular surgery. Recommend no surgical intervention at this time. * Ulcer on left foot base. Wound care notes appreciated. History of restless leg syndrome: * Sinemet was recently discontinued * Lyrica on hold currently. * Lubriderm to affected skin. DVT Prophylaxis: ALPS and Elliquis Code: Full Problem List: 1. A-fib Pain Ratin Tomorrow's Labs & Rationales: CBC, ICU bundle Plan DVT/Prophylaxis: mechanical
--- NOTE | 2017-05-30 07:25 | PN- Resident CRCU ---
Objective Weaning Parameters NIF: 23 Minute Volume: 8.9 Resp rate: 25 Vt: 300 Heart Rate: 94 Weaning Schedule Start Time: 1025 Minute Volume: 9.6 Resp Rate: 27 Vt: 335 Heart Rate: 94 End Time: 1330 Minute Volume: 8.6 Resp Rate: 26 Vt: 300 Heart Rate: 90 Impression/Plan Impression/Problem List Impression: 86 year old woman with past medical history of hypertension, hyperlipidemia, [place] s/p PCI with stent, diabetes mellitus, and restless leg syndrome, history of atrial fibrillation with anticoagulation on hold due to severe thrombocytopenia was sent in from extended care facility for hypoxia, leukocytosis and productive cough. She was admitted on telemetry floor and transfered to ICU after patient desaturated became unresponsive. Assessment and Plan: Acute hypoxic respiratory failure likely secondary to HCAP: * Her white count has normalized and she's been afebrile. Her sputum culture is growing MSSA. * Continue IV Cefazolin 1gm q8. * Reintubated again on 05/28. * ID recs appreciated. * Her CXR today showed significant improvement. She appears to have a chronic collapse of her left lower lobe. Atrial Fibrilliation with Hypotension: * Will continue metoprolol at 50mg BID. * Increase oral Amiodarone at 400mg TID. * Continue Elliquis 2.5mg BID. * Levophed was discontinued on 05/20 as blood pressure had been stable. * Echo - Normal left ventricular ejection fraction visually estimated at > 60% . Immune Thrombocytopenia: * Her platelets continue to uptrend. * Continue daily Prednisone 80mg. * Daily CBC * s/p 1 unit transfusion of platelets 05/22. 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 * Her fibrinogen had been decreasing each day. Will continue to follow DIC panel * Recommendation to transfuse with cryoprecipitate if fibrinogen falls below 100. GARCÍA on CKD: * Cr 1.3 today. * Was likely contrast induced nephropathy initially. Unclear about current rise in Cr. * One dose of IV lasix 40mg given due to poor urine output. * Nephro recs appreciated. * Strict I&Os. Diabetes Mellitus: * Tube feeds restarted today with Glucerna 1.2 * Levemir 7mg BID * Insulin SS. Adjusted per Endo's recommendations. Lower Extremity Skin Changes: * Was evaluated by vascular surgery. Recommend no surgical intervention at this time. * Ulcer on left foot base. Consulted Dr Quinnoes. History of restless leg syndrome: * Sinemet was recently discontinued * Lyrica on hold currently. * Lubriderm to affected skin. DVT Prophylaxis: Destiny Code: Full Plan DVT/Prophylaxis: mechanical
--- NOTE | 2017-05-30 07:32 | PN- Cardiology ---
Subjective Subjective: Patient intubated, started on iv cardizem for rapid AF. Now awake, comfortable, responds approprietly Review of Systems: Not obtainable (on ventilator) Objective Vital Signs and I&Os Vital Signs Date Time Temp Pulse Resp B/P B/P Pulse O2 O2 Flow FiO2 Mean Ox Delivery Rate 05/30 0546 123 141/73 05/30 0531 35 05/30 0400 94 Ventilator 35% 05/30 0216 35 05/30 0000 95 Ventilator 35% 05/30 0000 98.4 106 21 128/80 95 Ventilator 35% 05/29 2217 118 180/122 05/29 2214 35 05/29 2104 136 161/120 05/29 2104 146 161/120 05/29 1999 97 Ventilator 35% 05/29 1917 35 05/29 1840 142 148/90 05/29 1831 131 150/80 05/29 1626 35 05/29 1600 99 Ventilator 35% 05/29 1600 145 21 122/80 99 Ventilator 35% 05/29 1420 35 05/29 1402 156 122/78 05/29 1200 98 Ventilator 35% 05/29 1105 35 05/29 0936 132 122/80 05/29 0810 35 05/29 0800 97 Ventilator 35% 05/29 0800 97.3 119 18 100/70 97 Ventilator 35% Intake & Output 05/30 0800 05/30 0000 05/29 1600 05/29 0800 05/29 0000 05/28 1600 Intake Total 622 253 3208 794 749 730 Output Total 220 350 700 200 200 120 Balance 479 325 563 594 549 610 Intake, IV 148 185 772 654 749 730 Intake, Oral 0 0 0 Intake, Other 140 Intake, Tube 311 210 71 Feeding Intake, Tube 240 280 420 Irrigant Number 2 0 2 0 0 Bowel Movements Output, Urine 220 350 700 200 200 120 Patient 276 lb 288 lb Weight Weight Bed scale Bed scale Measurement Method Physical Exam: intubated comfortable, no acute distress HEENT-PERRLA\ Neck-unable to assess JVP, no bruits Lungs-few scattered exspiratory wheezing Heart-S1S2 irregular, no murmur Abdomen-soft, not tender, BS+, no organomegaly, no masses Extr-chronic dermatitis, improved edema of upper and lower extremities diminished distal pulses Neuro-awake, non focal Current Medications: Current Medications Sig/Ric Start time Last Medication Dose Route Stop Time Status Admin Acetaminophen 650 MG Q6P PRN 05/19 0300 AC PO Acetaminophen 1,000 MG Q6P PRN 05/19 0300 AC IV Acetylcysteine 2 ML EVERY 4 HRS/AWAKE 05/28 2000 AC 05/29 INH 2020 Albumin Human 25 GM Q8H 05/24 0822 AC 05/29 IV 2331 Albuterol Sulfate 3 ML EVERY 4 HRS/AWAKE 05/30 0800 AC INH Albuterol Sulfate 3 ML EVERY 4 HRS/AWAKE .. 05/28 1924 AC 05/29 INH 05/30 0759 2020 Amiodarone HCl 400 MG Q8 05/29 1400 AC 05/30 PO 0546 Amiodarone HCl 200 MG Q8 05/26 1400 DC 05/29 PO 0541 Apixaban 2.5 MG BID 05/28 2200 AC 05/29 PO 2104 Ascorbic Acid 500 MG DAILY 05/29 1000 AC 05/29 PO 0936 Cefazolin Sodium 1,000 MG IQ8 05/27 1600 AC 05/29 IV 2331 Dextrose/Sodium 1,000 ML Q13H 05/26 1415 DC 05/29 Chloride IV 0943 Diltiazem HCl 125 MG Q16H 05/30 1200 AC Dextrose/Water 100 ML IV Diltiazem HCl 25 MG .STK-MED ONE 05/29 1940 DC IV 05/29 1941 Diltiazem HCl 125 MG Q24H 05/29 1915 AC 05/29 Dextrose/Water 100 ML IV 05/30 1159 1958 Docusate Sodium 100 MG DAILY AC 05/23 0820 AC 05/29 PO 0541 Furosemide 40 MG ONCE ONE 05/29 1015 DC 05/29 IV 05/29 1016 1106 Glycerin 2 SPRAY Q2P PRN 05/27 0800 AC PO Glycerin/Mineral Oil 1 PEDRITO TID PRN 05/24 1100 AC TOP Insulin Aspart 0 Q4H 05/21 1800 AC 05/30 SC 0552 Insulin Detemir 7 UNITS BID 05/29 2200 05/29 SC 2104 Insulin Detemir 7 UNITS DAILY 05/27 1000 DC 05/29 SC 1107 Magnesium Sulfate 1 GM ONCE ONE 05/30 0730 UNVr Dextrose/Water 100 ML IV 05/30 1129 Metoprolol Tartrate 10 MG ONCE ONE 05/29 2215 DC 05/29 IV 05/297 Metoprolol Tartrate 5 MG ONCE ONE 05/29 1914 DC 05/29 IV 05/29 1915 184 Metoprolol Tartrate 5 MG ONCE ONE 05/29 1814 DC 05/29 IV 05/29 1815 183 Metoprolol Tartrate 50 MG BID 05/28 2199 05/29 PO 210 Multivitamins 1 TAB DAILY 05/29 1000 AC 05/29 PO 0936 Pantoprazole Sodium 40 MG DAILY 05/20 0030 AC 05/29 IV 0747 Polyethylene Glycol 17 GM DAILY 05/23 1000 AC 05/29 PO 0936 Potassium Chloride 20 MEQ ONCE ONE 05/30 0630 DC 05/30 IV 05/30 0631 0636 Prednisone 80 MG DAILY 05/27 1145 AC 05/29 PO 0936 Zinc Sulfate 220 MG DAILY 05/29 1000 AC 05/29 PO 0936 Results Last 48 Hrs of Labs/Mics: Laboratory Tests 05/30/175: pH 7.52 H, pCO2 27 L, pO2 70 L, HCO3 22, ABG O2 Sat (Measured) 92.0 L, P-50 (Temp Corrected) Y, Carboxyhemoglobin 0.3 L, O2 Concentration % 35%, Temperature 98.4, Respiration Rate 14, O2 Delivery Method ESPRIT, Vent Mode AC, Expiratory Pressure 5, Tidal Volume 500, Phlebotomy Draw Site LEFT RADIAL 05/30/17409: Anion Gap 18 H, Estimated GFR 43 L, Glucose 173 H, Calcium 8.9, Phosphorus 2.8, Magnesium 1.8, Total Bilirubin 0.6, AST 26, ALT 42, Albumin 3.7, PT 20.0 H , INR 1.92 H, APTT 40 H, Fibrinogen Activity 153 L, CBC w Diff NO MAN DIFF REQ, RBC 2.80 L, MCV 92.0, MCH 28.9, MCHC 31.4 L, RDW 22.2 H, MPV 10.5 H, Gran % 93.8 H, Lymphocytes % 4.4 L, Monocytes % 1.6 L, Eosinophils % 0, Basophils % 0.2, Absolute Granulocytes 7.9 H, Absolute Lymphocytes 0.4 L, Absolute Monocytes 0.1, Absolute Eosinophils 0, Absolute Basophils 0 05/29/17 3605: pH 7.49 H, pCO2 30 L, pO2 73 L, HCO3 22, ABG O2 Sat (Measured) 93.0 L, P-50 (Temp Corrected) Y, Carboxyhemoglobin 0.4 L, O2 Concentration % 35%, Temperature 97.3, Respiration Rate 14, O2 Delivery Method ESPRIT, Vent Mode AC, Expiratory Pressure 5, Tidal Volume 500, Phlebotomy Draw Site LEFT [facility] 05/29/17 0400: Anion Gap 16, Estimated GFR 39 L, Glucose 139 H, Calcium 8.3 L, Phosphorus 3.2, Magnesium 1.9, Total Bilirubin 0.5, AST 39 H, ALT 63 H, Albumin 3.2 L, PT 18.1 H, INR 1.73 H, APTT 41 H, Fibrinogen Activity 152 L, CBC w Diff MAN DIFF ORDERED, RBC 2.56 L, MCV 92.0, MCH 29.4, MCHC 31.9 L, RDW 21.4 H, MPV 10.5 H, Gran % 91.1 H, Lymphocytes % 6.1 L, Monocytes % 2.8, Eosinophils % 0, Basophils % 0, Absolute Granulocytes 4.7, Segmented Neutrophils 888 H, Band Neutrophils 1, Absolute Lymphocytes 0.3 L, Lymphocytes 7 L, Monocytes 4, Absolute Monocytes 0.1, Absolute Eosinophils 0, Absolute Basophils 0, Platelet Estimate ADEQUATE, Polychromasia 1+, Hypochromic-Microcytic 1+, Poikilocytosis 1 +, Ovalocytes 1+, Fld Total RBCs Counted 100 05/28/17 1910: pH 7.38, pCO2 36, pO2 96, HCO3 21, ABG O2 Sat (Measured) 97.0, P-50 (Temp Corrected) N, Carboxyhemoglobin 0.5 L, O2 Concentration % .40, Respiration Rate 14, O2 Delivery Method VENT, Vent Mode A/C, Expiratory Pressure 5, Tidal Volume 500, Phlebotomy Draw Site LEFT RADIAL 05/28/17 1205: pH 7.29 *L, pCO2 45, pO2 70 L, HCO3 21, ABG O2 Sat (Measured) 90.0 L, P-50 ( Temp Corrected) N, Carboxyhemoglobin 1.3 L, O2 Concentration % 100%, Temperature 97.2, O2 Delivery Method Pending, Phlebotomy Draw Site LEFT RADIAL 05/28/17 1145: Lactic Acid 1.3 Recent Imaging Studies: CXR-improved aeration with bilateral pleural effusions Assessment/Plan Assessment/Plan 1. Acute hypoxic respiratory failure/septic shock secondary to MSSA PNA on Oxacillin Extubated 4 days ago, now reintubated, CXR improved aeration with bilateral pleural effusions 2. atrial fibrillation, started on iv cardizem last night for rapid AF 3. GARCÍA-creatinine stable, sodium decreased 4.Thrombocytopenia/ITP, on steroids 5. Anemia-improved Plan: increase Lasix to 40 mg iv bid-will diurese more as long as renal function and sodium remains stable continue iv fluids 75 cc/hr D51/2 NS agree to hold on CT chest and bronchoscopy as long as CXR improved continue amiodarone to 200 mg tid increase metoprolol to 100 mg bid continue iv cardizem-acceptable rates 100-130 bpm Continue telemetry? Yes
--- NOTE | 2017-05-30 07:39 | PN- Hematology ---
Subjective Subjective: She remains intubated. She is still in atrial fibrillation with RVR. Diltiazem was started overnight. Review of Systems: Limited due to intubation. Objective Vital Signs and I&Os Vital Signs Date Time Temp Pulse Resp B/P B/P Pulse O2 O2 Flow FiO2 Mean Ox Delivery Rate 05/30 0546 123 141/73 05/30 0531 35 05/30 0400 94 Ventilator 35% 05/30 0216 35 05/30 0000 95 Ventilator 35% 05/30 0000 98.4 106 21 128/80 95 Ventilator 35% 05/29 2217 118 180/122 05/29 2214 35 05/29 2104 136 161/120 05/29 2104 146 161/120 05/29 1999 97 Ventilator 35% 05/29 1917 35 05/29 1840 142 148/90 05/29 1831 131 150/80 05/29 1626 35 05/29 1600 99 Ventilator 35% 05/29 1600 145 21 122/80 99 Ventilator 35% 05/29 1420 35 05/29 1402 156 122/78 05/29 1200 98 Ventilator 35% 05/29 1105 35 05/29 0936 132 122/80 05/29 0810 35 05/29 0800 97 Ventilator 35% 05/29 0800 97.3 119 18 100/70 97 Ventilator 35% Intake & Output 05/30 0800 05/30 0000 05/29 1600 05/29 0800 05/29 0000 05/28 1600 Intake Total 837 746 6085 794 749 730 Output Total 220 350 700 200 200 120 Balance 479 325 563 594 549 610 Intake, IV 148 185 772 654 749 730 Intake, Oral 0 0 0 Intake, Other 140 Intake, Tube 311 210 71 Feeding Intake, Tube 240 280 420 Irrigant Number 2 0 2 0 0 Bowel Movements Output, Urine 220 350 700 200 200 120 Patient 125.39 kg 130.436 kg Weight Weight Bed scale Bed scale Measurement Method Physical Exam: General Appearance: arousable, intubated Ears, Nose, Throat: ET tube in place Respiratory: chest non-tender, rhonchi Cardiovascular: tachycardia, irregularly irregular Abdomen: normal bowel sounds, soft, non-tender Extremities: bilateral upper extremity 2+ edema which is improving, ecchymoses in upper extremities, hyperpigmented lower extremities Neurologic/Psychiatric: somnolent but arousable, intubated Current Medications: Current Medications Sig/Ric Start time Last Medication Dose Route Stop Time Status Admin Acetaminophen 650 MG Q6P PRN 05/19 0300 AC PO Acetaminophen 1,000 MG Q6P PRN 05/19 0300 AC IV Acetylcysteine 2 ML EVERY 4 HRS/AWAKE 05/28 2000 AC 05/29 INH 2020 Albumin Human 25 GM Q8H 05/24 0822 AC 05/29 IV 2331 Albuterol Sulfate 3 ML EVERY 4 HRS/AWAKE 05/30 0800 AC INH Albuterol Sulfate 3 ML EVERY 4 HRS/AWAKE .. 05/28 1924 AC 05/29 INH 05/30 0759 2020 Amiodarone HCl 400 MG Q8 05/29 1400 AC 05/30 PO 0546 Amiodarone HCl 200 MG Q8 05/26 1400 DC 05/29 PO 0541 Apixaban 2.5 MG BID 05/28 2200 AC 05/29 PO 2104 Ascorbic Acid 500 MG DAILY 05/29 1000 AC 05/29 PO 0936 Cefazolin Sodium 1,000 MG IQ8 05/27 1600 AC 05/29 IV 2331 Dextrose/Sodium 1,000 ML Q13H 05/26 1415 DC 05/29 Chloride IV 0943 Diltiazem HCl 125 MG Q16H 05/30 1200 AC Dextrose/Water 100 ML IV Diltiazem HCl 25 MG .STK-MED ONE 05/29 1940 DC IV 05/29 1941 Diltiazem HCl 125 MG Q24H 05/29 1915 AC 05/29 Dextrose/Water 100 ML IV 05/30 1159 1958 Docusate Sodium 100 MG DAILY AC 05/23 0820 AC 05/29 PO 0541 Furosemide 40 MG ONCE ONE 05/29 1015 DC 05/29 IV 05/29 1016 1106 Glycerin 2 SPRAY Q2P PRN 05/27 0800 AC PO Glycerin/Mineral Oil 1 PEDRITO TID PRN 05/24 1100 AC TOP Insulin Aspart 0 Q4H 05/21 1800 AC 05/30 SC 0552 Insulin Detemir 7 UNITS BID 05/29 2200 AC 05/29 SC 2104 Insulin Detemir 7 UNITS DAILY 05/27 1000 DC 05/29 SC 1107 Magnesium Sulfate 1 GM ONCE ONE 05/30 0730 AC Dextrose/Water 100 ML IV 05/30 1129 Metoprolol Tartrate 10 MG ONCE ONE 05/29 2214 DC 05/29 IV 05/29 Metoprolol Tartrate 5 MG ONCE ONE 05/29 1914 DC 05/29 IV 05/29 1915 184 Metoprolol Tartrate 5 MG ONCE ONE 05/29 1814 DC 05/29 IV 05/29 1815 183 Metoprolol Tartrate 50 MG BID 05/28 2200 05/29 PO 2104 Multivitamins 1 TAB DAILY 05/29 1000 AC 05/29 PO 0936 Pantoprazole Sodium 40 MG DAILY 05/20 0030 AC 05/29 IV 0747 Polyethylene Glycol 17 GM DAILY 05/23 1000 AC 05/29 PO 0936 Potassium Chloride 20 MEQ ONCE ONE 05/30 0630 DC 05/30 IV 05/30 0631 0636 Prednisone 80 MG DAILY 05/27 1145 AC 05/29 PO 0936 Zinc Sulfate 220 MG DAILY 05/29 1000 AC 05/29 PO 0936 Results Last 24 Hours of Lab Results: Laboratory Tests 05/30 05/30 0415 0410 Blood Gas pH (7.35 - 7.45 PH) 7.52 H pCO2 (35 - 45 TORR) 27 L pO2 (80 - 100 TORR) 70 L HCO3 (21 - 28 MEQ/L) 22 ABG O2 Sat (Measured) (>96.0 %) 92.0 L P-50 (Temp Corrected) Y Carboxyhemoglobin (1.5 - 5.0 %) 0.3 L O2 Concentration % 35% Temperature (97.0 - 100.0 FARH) 98.4 Respiration Rate (BPM) 14 O2 Delivery Method ESPRIT Vent Mode AC Expiratory Pressure (CMH2O/P) 5 Tidal Volume (CC) 500 Chemistry Sodium (137 - 145 mmol/L) 149 H Potassium (3.5 - 5.1 mmol/L) 3.5 Chloride (98 - 107 mmol/L) 108 H Carbon Dioxide (22 - 30 mmol/L) 23 Anion Gap (5 - 16) 18 H BUN (7 - 17 mg/dL) 51 H Creatinine (0.5 - 1.0 mg/dL) 1.2 H Estimated GFR (>60 ml/min) 43 L Glucose (65 - 99 mg/dL) 173 H Calcium (8.4 - 10.2 mg/dL) 8.9 Phosphorus (2.5 - 4.5 mg/dL) 2.8 Magnesium (1.6 - 2.3 mg/dL) 1.8 Total Bilirubin (0.2 - 1.3 mg/dL) 0.6 AST (14 - 36 U/L) 26 ALT (9 - 52 U/L) 42 Albumin (3.5 - 5.0 g/dL) 3.7 Coagulation PT (9.4 - 12.5 SEC) 20.0 H INR (0.90 - 1.19) 1.92 H APTT (25 - 37 SEC) 40 H Fibrinogen Activity (200 - 393 MG/DL) 153 L Hematology CBC w Diff NO MAN DIFF REQ WBC (4.8 - 10.8 /CUMM) 8.4 RBC (4.20 - 5.40 /CUMM) 2.80 L Hgb (12.0 - 16.0 G/DL) 8.1 L Hct (37 - 47 %) 25.7 L MCV (81.0 - 99.0 FL) 92.0 MCH (27.0 - 31.0 PG) 28.9 MCHC (33.0 - 37.0 G/DL) 31.4 L RDW (11.5 - 14.5 %) 22.2 H Plt Count (130 - 400 /CUMM) 195 MPV (7.4 - 10.4 FL) 10.5 H Gran % (42.2 - 75.2 %) 93.8 H Lymphocytes % (20.5 - 51.1 %) 4.4 L Monocytes % (1.7 - 9.3 %) 1.6 L Eosinophils % (0 - 5 %) 0 Basophils % (0.0 - 2.0 %) 0.2 Absolute Granulocytes (1.4 - 6.5 /CUMM) 7.9 H Absolute Lymphocytes (1.2 - 3.4 /CUMM) 0.4 L Absolute Monocytes (0.10 - 0.60 /CUMM) 0.1 Absolute Eosinophils (0.0 - 0.7 /CUMM) 0 Absolute Basophils (0.0 - 0.2 /CUMM) 0 Miscellaneous Phlebotomy Draw Site LEFT RADIAL Assessment/Plan Assessment/Recommendations: Ms. Christine is an 86-year-old female with chronic ITP, HTN, HLD, [place] s/p PCI with stent, DM, and atrial fibrillation who presented with new hypoxia and cough. She has been having new cough a few days ago. CTA demonstrated moderate atelectasis/consolidation in the left upper and lower lobes. There was mild right base atelectasis and moderate left and [id number] right pleural effusions. She was briefly in shock and required Levophed. She is being treated for MSSA pneumonia with oxallicin. She is on stress dose steroid. She remains intubated. FiO2 is still at 35%. Blood work demonstrated improving platelet count of 195,000. Hemoglobin has improved to 8.5. She is on prednisone 80 mg daily. She can be continued on this for now. She may taper once clinically improved. She should have 10 mg taper weekly. Further respiratory management as per the ICU team. She is on antibiotic for the MSSA pneumonia. Acute hypoxic respiratory failure with shock likely from MSSA pneumonia: - continue management as per ICU - antibiotics as per primary and ID Chronic ITP: - continue prednisone 80 mg daily, can taper to 70 if clinical stable and platelet remains >150,000 Atrial fibrillation with RVR: -cardiology following -currently receiving apixaban, amiodarone, diltiazem, and metoprolol Please call [phone] with any questions or concerns. Problem List: 1. Pneumonia 2. Atrial fibrillation with RVR 3. Chronic anemia 4. Thrombocytopenia
--- NOTE | 2017-05-30 07:49 | PN- Diabetes ---
Assessment/Plan Assessment: Patient is now reintubated. She is on a respirator and sedated. Her steroid dose is prednisone 80 mg once a day. He is presently on 7 units of Levemir twice a day. Her tube feedings have been restarted and are going to be advanced to 65 mL/h. She is also on q. 4 hour NovoLog coverage. The patient's serum sodium is 149 which is improved but still elevated. Her blood sugar in the lab at 4 AM was 173. The patient has abnormal thyroid function tests. They were felt to represent sick euthyroid as well as the effect of medication on her thyroid function tests. Thyroid function tests done today show a TSH of 0.285 and a total T3 of 0.47 with a free T4 of 1.16. Therefore her thyroid tests are becoming more normal.. Plan: Suggest increase Levemir to 8 units twice a day. Continue present sliding scale NovoLog every 4 hours. As the tube feeding is increased to the goal today we may need to increase the sliding scale NovoLog by an additional unit for each interval. Increase the free water flushes to try to bring the serum sodium down to normal.. Subjective Subjective: Intubated and sedated Objective Last 24 Hrs of Vital Signs/I&O Vital Signs Date Time Temp Pulse Resp B/P B/P Pulse O2 O2 Flow FiO2 Mean Ox Delivery Rate 05/30 0546 123 141/73 05/30 0531 35 05/30 0400 94 Ventilator 35% 05/30 0216 35 05/30 0000 95 Ventilator 35% 05/30 0000 98.4 106 21 128/80 95 Ventilator 35% 05/29 2217 118 180/122 05/29 2214 35 05/29 2104 136 161/120 05/29 2104 146 161/120 05/29 2000 97 Ventilator 35% 05/29 1917 35 05/29 1840 142 148/90 05/29 1831 131 150/80 05/29 1626 35 05/29 1600 99 Ventilator 35% 05/29 1600 145 21 122/80 99 Ventilator 35% 05/29 1420 35 05/29 1402 156 122/78 05/29 1200 98 Ventilator 35% 05/29 1105 35 05/29 0936 132 122/80 05/29 0810 35 05/29 0800 97 Ventilator 35% 05/29 0800 97.3 119 18 100/70 97 Ventilator 35% Intake & Output 05/30 0800 05/30 0000 05/29 1600 Intake Total 231 897 1276 Output Total 220 350 700 Balance 479 325 563 Intake, IV 148 185 772 Intake, Oral 0 Intake, Tube 311 210 71 Feeding Intake, Tube 240 280 420 Irrigant Number 2 0 2 Bowel Movements Output, Urine 220 350 700 Patient 276 lb Weight Weight Bed scale Measurement Method Vital Signs Date Time Temp Pulse Resp B/P B/P Pulse O2 O2 Flow FiO2 Mean Ox Delivery Rate 05/30 0546 123 141/73 05/30 0531 35 05/30 0400 94 Ventilator 35% 05/30 0216 35 05/30 0000 95 Ventilator 35% 05/30 0000 98.4 106 21 128/80 95 Ventilator 35% 05/29 2217 118 180/122 05/29 2214 35 05/29 2104 136 161/120 05/29 2104 146 161/120 05/29 1999 97 Ventilator 35% 05/29 1917 35 05/29 1840 142 148/90 05/29 1831 131 150/80 05/29 1626 35 05/29 1600 99 Ventilator 35% 05/29 1600 145 21 122/80 99 Ventilator 35% 05/29 1420 35 05/29 1402 156 122/78 05/29 1200 98 Ventilator 35% 05/29 1105 35 05/29 0936 132 122/80 05/29 0810 35 05/29 0800 97 Ventilator 35% 05/29 0800 97.3 119 18 100/70 97 Ventilator 35% Intake & Output 05/30 0800 05/30 0000 05/29 1600 Intake Total 625 469 7900 Output Total 220 350 700 Balance 479 325 563 Intake, IV 148 185 772 Intake, Oral 0 Intake, Tube 311 210 71 Feeding Intake, Tube 240 280 420 Irrigant Number 2 0 2 Bowel Movements Output, Urine 220 350 700 Patient 276 lb Weight Weight Bed scale Measurement Method Current Medications: Current Medications Sig/Ric Start time Last Medication Dose Route Stop Time Status Admin Acetaminophen 650 MG Q6P PRN 05/19 299 AC PO Acetaminophen 1,000 MG Q6P PRN 05/19 299 AC IV Acetylcysteine 2 ML EVERY 4 HRS/AWAKE 05/28 INH 2020 Albumin Human 25 GM Q8H 05/24 821 AC 05/30 IV 0746 Albuterol Sulfate 3 ML EVERY 4 HRS/AWAKE 05/30 0800 AC INH Albuterol Sulfate 3 ML EVERY 4 HRS/AWAKE .. 05/28 1924 AC 05/29 INH 05/30 0759 2020 Amiodarone HCl 400 MG Q8 05/29 1400 AC 05/30 PO 0546 Amiodarone HCl 200 MG Q8 05/26 1400 DC 05/29 PO 0541 Apixaban 2.5 MG BID 05/28 2200 AC 05/29 PO 2104 Artificial Tears 2 GTT 4 TIMES/DAY PRN 05/30 0745 AC OPH Ascorbic Acid 500 MG DAILY 05/29 1000 AC 05/29 PO 0936 Cefazolin Sodium 1,000 MG IQ8 05/27 1600 AC 05/30 IV 0746 Dextrose/Sodium 1,000 ML Q13H 05/26 1415 DC 05/29 Chloride IV 0943 Diltiazem HCl 125 MG Q16H 05/30 1200 AC Dextrose/Water 100 ML IV Diltiazem HCl 25 MG .STK-MED ONE 05/29 1940 DC IV 05/29 194 Diltiazem HCl 125 MG Q24H 05/29 1915 05/29 Dextrose/Water 100 ML IV 05/30 1159 1958 Docusate Sodium 100 MG DAILY AC 05/23 0820 AC 05/29 PO 0541 Furosemide 40 MG ONCE ONE 05/29 1015 DC 05/29 IV 05/29 1016 1106 Glycerin 2 SPRAY Q2P PRN 05/27 0800 AC PO Glycerin/Mineral Oil 1 PEDRITO TID PRN 05/24 1100 AC TOP Insulin Aspart 0 Q4H 05/21 1800 AC 05/30 SC 0552 Insulin Detemir 7 UNITS BID 05/290 05/29 SC 2104 Insulin Detemir 7 UNITS DAILY 05/27 1000 IL 05/29 SD 1107 Magnesium Sulfate 1 GM ONCE ONE 05/30 0730 AC 05/30 Dextrose/Water 100 ML IV 05/30 1129 0746 Metoprolol Tartrate 10 MG ONCE ONE 05/29 2214 DC 05/29 IV 05/29 2216 2217 Metoprolol Tartrate 5 MG ONCE ONE 05/29 1914 DC 05/29 IV 05/29 1916 1840 Metoprolol Tartrate 5 MG ONCE ONE 05/29 1815 DC 05/29 IV 05/29 1816 1831 Metoprolol Tartrate 50 MG BID 05/28 2200 AC 05/29 PO 2104 Multivitamins 1 TAB DAILY 05/29 1000 AC 05/29 PO 0936 Pantoprazole Sodium 40 MG DAILY 05/20 0030 AC 05/30 IV 0746 Polyethylene Glycol 17 GM DAILY 05/23 1000 AC 05/29 PO 0936 Potassium Chloride 20 MEQ ONCE ONE 05/30 0630 DC 05/30 IV 05/30 0631 0636 Prednisone 80 MG DAILY 05/27 1145 AC 05/29 PO 0936 Zinc Sulfate 220 MG DAILY 05/29 1000 AC 05/29 PO 0936 Findings Pertinent Lab/Silvano Results: Laboratory Tests 05/30 05/30 0415 0410 Blood Gas pH (7.35 - 7.45 PH) 7.52 H pCO2 (35 - 45 TORR) 27 L pO2 (80 - 100 TORR) 70 L HCO3 (21 - 28 MEQ/L) 22 ABG O2 Sat (Measured) (>96.0 %) 92.0 L P-50 (Temp Corrected) Y Carboxyhemoglobin (1.5 - 5.0 %) 0.3 L O2 Concentration % 35% Temperature (97.0 - 100.0 FARH) 98.4 Respiration Rate (BPM) 14 O2 Delivery Method ESPRIT Vent Mode AC Expiratory Pressure (CMH2O/P) 5 Tidal Volume (CC) 500 Chemistry Sodium (137 - 145 mmol/L) 149 H Potassium (3.5 - 5.1 mmol/L) 3.5 Chloride (98 - 107 mmol/L) 108 H Carbon Dioxide (22 - 30 mmol/L) 23 Anion Gap (5 - 16) 18 H BUN (7 - 17 mg/dL) 51 H Creatinine (0.5 - 1.0 mg/dL) 1.2 H Estimated GFR (>60 ml/min) 43 L Glucose (65 - 99 mg/dL) 173 H Calcium (8.4 - 10.2 mg/dL) 8.9 Phosphorus (2.5 - 4.5 mg/dL) 2.8 Magnesium (1.6 - 2.3 mg/dL) 1.8 Total Bilirubin (0.2 - 1.3 mg/dL) 0.6 AST (14 - 36 U/L) 26 ALT (9 - 52 U/L) 42 Albumin (3.5 - 5.0 g/dL) 3.7 Coagulation PT (9.4 - 12.5 SEC) 20.0 H INR (0.90 - 1.19) 1.92 H APTT (25 - 37 SEC) 40 H Fibrinogen Activity (200 - 393 MG/DL) 153 L Hematology CBC w Diff NO MAN DIFF REQ WBC (4.8 - 10.8 /CUMM) 8.4 RBC (4.20 - 5.40 /CUMM) 2.80 L Hgb (12.0 - 16.0 G/DL) 8.1 L Hct (37 - 47 %) 25.7 L MCV (81.0 - 99.0 FL) 92.0 MCH (27.0 - 31.0 PG) 28.9 MCHC (33.0 - 37.0 G/DL) 31.4 L RDW (11.5 - 14.5 %) 22.2 H Plt Count (130 - 400 /CUMM) 195 MPV (7.4 - 10.4 FL) 10.5 H Gran % (42.2 - 75.2 %) 93.8 H Lymphocytes % (20.5 - 51.1 %) 4.4 L Monocytes % (1.7 - 9.3 %) 1.6 L Eosinophils % (0 - 5 %) 0 Basophils % (0.0 - 2.0 %) 0.2 Absolute Granulocytes (1.4 - 6.5 /CUMM) 7.9 H Absolute Lymphocytes (1.2 - 3.4 /CUMM) 0.4 L Absolute Monocytes (0.10 - 0.60 /CUMM) 0.1 Absolute Eosinophils (0.0 - 0.7 /CUMM) 0 Absolute Basophils (0.0 - 0.2 /CUMM) 0 Miscellaneous Phlebotomy Draw Site LEFT RADIAL Laboratory Tests 05/30 05/30 0415 0410 Blood Gas pH (7.35 - 7.45 PH) 7.52 H pCO2 (35 - 45 TORR) 27 L pO2 (80 - 100 TORR) 70 L HCO3 (21 - 28 MEQ/L) 22 ABG O2 Sat (Measured) (>96.0 %) 92.0 L P-50 (Temp Corrected) Y Carboxyhemoglobin (1.5 - 5.0 %) 0.3 L O2 Concentration % 35% Temperature (97.0 - 100.0 FARH) 98.4 Respiration Rate (BPM) 14 O2 Delivery Method ESPRIT Vent Mode AC Expiratory Pressure (CMH2O/P) 5 Tidal Volume (CC) 500 Chemistry Sodium (137 - 145 mmol/L) 149 H Potassium (3.5 - 5.1 mmol/L) 3.5 Chloride (98 - 107 mmol/L) 108 H Carbon Dioxide (22 - 30 mmol/L) 23 Anion Gap (5 - 16) 18 H BUN (7 - 17 mg/dL) 51 H Creatinine (0.5 - 1.0 mg/dL) 1.2 H Estimated GFR (>60 ml/min) 43 L Glucose (65 - 99 mg/dL) 173 H Calcium (8.4 - 10.2 mg/dL) 8.9 Phosphorus (2.5 - 4.5 mg/dL) 2.8 Magnesium (1.6 - 2.3 mg/dL) 1.8 Total Bilirubin (0.2 - 1.3 mg/dL) 0.6 AST (14 - 36 U/L) 26 ALT (9 - 52 U/L) 42 Albumin (3.5 - 5.0 g/dL) 3.7 Coagulation PT (9.4 - 12.5 SEC) 20.0 H INR (0.90 - 1.19) 1.92 H APTT (25 - 37 SEC) 40 H Fibrinogen Activity (200 - 393 MG/DL) 153 L Hematology CBC w Diff NO MAN DIFF REQ WBC (4.8 - 10.8 /CUMM) 8.4 RBC (4.20 - 5.40 /CUMM) 2.80 L Hgb (12.0 - 16.0 G/DL) 8.1 L Hct (37 - 47 %) 25.7 L MCV (81.0 - 99.0 FL) 92.0 MCH (27.0 - 31.0 PG) 28.9 MCHC (33.0 - 37.0 G/DL) 31.4 L RDW (11.5 - 14.5 %) 22.2 H Plt Count (130 - 400 /CUMM) 195 MPV (7.4 - 10.4 FL) 10.5 H Gran % (42.2 - 75.2 %) 93.8 H Lymphocytes % (20.5 - 51.1 %) 4.4 L Monocytes % (1.7 - 9.3 %) 1.6 L Eosinophils % (0 - 5 %) 0 Basophils % (0.0 - 2.0 %) 0.2 Absolute Granulocytes (1.4 - 6.5 /CUMM) 7.9 H Absolute Lymphocytes (1.2 - 3.4 /CUMM) 0.4 L Absolute Monocytes (0.10 - 0.60 /CUMM) 0.1 Absolute Eosinophils (0.0 - 0.7 /CUMM) 0 Absolute Basophils (0.0 - 0.2 /CUMM) 0 Miscellaneous Phlebotomy Draw Site LEFT RADIAL
[2017-05-30 08:00] VITALS: BP 142/76
--- NOTE | 2017-05-30 08:24 | RADIOLOGY REPORT ---
EXAMINATION: XR PORTABLE CHEST CLINICAL INFORMATION: Confirmation of lines and tubes. Question pleural effusion. COMPARISON: Several prior chest x-rays, the most recent 05/30/2017 TECHNIQUE: Portable frontal view of the chest was obtained. FINDINGS: Endotracheal tube is stable in position. Enteric tube terminates below the level of the diaphragm. Right-sided PICC line with tip terminating at the cavoatrial junction. Stable cardiomegaly. Low lung volumes. Interval worsening in diffuse opacity of the right hemithorax. The left hemithorax appears relatively well aerated. Small pleural effusions are present bilaterally. IMPRESSION: 1. Stable support apparatus. 2. Low lung volumes with interval worsening of patchy opacity in the right hemithorax. 3. Small pleural effusions.
--- NOTE | 2017-05-30 09:51 | PN- Infect Dx ---
Subjective Subjective: Afebrile on steroids. She went into rapid atrial fibrillation last evening, treated with Cardizem. She does not offer any complaints at this time. She has been suctioned for francis secretions. Objective Last 24 Hrs of Vital Signs/I&O Vital Signs Date Time Temp Pulse Resp B/P B/P Pulse O2 O2 Flow FiO2 Mean Ox Delivery Rate 05/30 0824 35 05/30 0546 123 141/73 05/30 0531 35 05/30 0400 94 Ventilator 35% 05/30 0216 35 05/30 0000 95 Ventilator 35% 05/30 0000 98.4 106 21 128/80 95 Ventilator 35% 05/29 2217 118 180/122 05/29 2214 35 05/29 2104 136 161/120 05/29 2104 146 161/120 05/29 1999 97 Ventilator 35% 05/29 1917 35 05/29 1840 142 148/90 05/29 1831 131 150/80 05/29 1626 35 05/29 1600 99 Ventilator 35% 05/29 1600 145 21 122/80 99 Ventilator 35% 05/29 1420 35 05/29 1402 156 122/78 05/29 1200 98 Ventilator 35% 05/29 1105 35 Intake & Output 05/30 1600 05/30 0800 05/30 0000 Intake Total 699 675 Output Total 220 350 Balance 479 325 Intake, IV 148 185 Intake, Oral 0 Intake, Tube 311 210 Feeding Intake, Tube 240 280 Irrigant Number 2 0 Bowel Movements Output, Urine 220 350 Patient 276 lb Weight Weight Bed scale Measurement Method Physical Exam Other Physical Findings: She is awake and alert on the ventilator in no acute distress Lungs bilateral rhonchi Heart irregular rhythm Abdomen is obese, soft, nontender with positive bowel sounds Extremities chronic venous stasis changes both lower extremities; PICC in the right upper extremity with no inflammation at the site Faust catheter remains in place Results Last 24 Hours of Lab Results: Laboratory Tests 05/30 05/30 0415 0410 Blood Gas pH (7.35 - 7.45 PH) 7.52 H pCO2 (35 - 45 TORR) 27 L pO2 (80 - 100 TORR) 70 L HCO3 (21 - 28 MEQ/L) 22 ABG O2 Sat (Measured) (>96.0 %) 92.0 L P-50 (Temp Corrected) Y Carboxyhemoglobin (1.5 - 5.0 %) 0.3 L O2 Concentration % 35% Temperature (97.0 - 100.0 FARH) 98.4 Respiration Rate (BPM) 14 O2 Delivery Method ESPRIT Vent Mode AC Expiratory Pressure (CMH2O/P) 5 Tidal Volume (CC) 500 Chemistry Sodium (137 - 145 mmol/L) 149 H Potassium (3.5 - 5.1 mmol/L) 3.5 Chloride (98 - 107 mmol/L) 108 H Carbon Dioxide (22 - 30 mmol/L) 23 Anion Gap (5 - 16) 18 H BUN (7 - 17 mg/dL) 51 H Creatinine (0.5 - 1.0 mg/dL) 1.2 H Estimated GFR (>60 ml/min) 43 L Glucose (65 - 99 mg/dL) 173 H Calcium (8.4 - 10.2 mg/dL) 8.9 Phosphorus (2.5 - 4.5 mg/dL) 2.8 Magnesium (1.6 - 2.3 mg/dL) 1.8 Total Bilirubin (0.2 - 1.3 mg/dL) 0.6 AST (14 - 36 U/L) 26 ALT (9 - 52 U/L) 42 Albumin (3.5 - 5.0 g/dL) 3.7 Coagulation PT (9.4 - 12.5 SEC) 20.0 H INR (0.90 - 1.19) 1.92 H APTT (25 - 37 SEC) 40 H Fibrinogen Activity (200 - 393 MG/DL) 153 L Hematology CBC w Diff NO MAN DIFF REQ WBC (4.8 - 10.8 /CUMM) 8.4 RBC (4.20 - 5.40 /CUMM) 2.80 L Hgb (12.0 - 16.0 G/DL) 8.1 L Hct (37 - 47 %) 25.7 L MCV (81.0 - 99.0 FL) 92.0 MCH (27.0 - 31.0 PG) 28.9 MCHC (33.0 - 37.0 G/DL) 31.4 L RDW (11.5 - 14.5 %) 22.2 H Plt Count (130 - 400 /CUMM) 195 MPV (7.4 - 10.4 FL) 10.5 H Gran % (42.2 - 75.2 %) 93.8 H Lymphocytes % (20.5 - 51.1 %) 4.4 L Monocytes % (1.7 - 9.3 %) 1.6 L Eosinophils % (0 - 5 %) 0 Basophils % (0.0 - 2.0 %) 0.2 Absolute Granulocytes (1.4 - 6.5 /CUMM) 7.9 H Absolute Lymphocytes (1.2 - 3.4 /CUMM) 0.4 L Absolute Monocytes (0.10 - 0.60 /CUMM) 0.1 Absolute Eosinophils (0.0 - 0.7 /CUMM) 0 Absolute Basophils (0.0 - 0.2 /CUMM) 0 Miscellaneous Phlebotomy Draw Site LEFT RADIAL Last 24 Hours of Silvano Results: No new cultures Recent Imaging Studies: Chest x-ray May 30 reveals increased opacity in the right hemithorax and improved aeration in the left lung Assessment/Plan Impression: Stable status post reintubation 2 days ago for a collapse of her left lung, with continued improvement in the aeration on the left, but with an increased opacity on the right, possibly secondary to fluid, though she has been continued on Lasix, or aspiration pneumonia, though her temperatures and white blood cell count remain normal (on steroids) and Cefazolin now Day 12 of treatment for MSSA pneumonia. Suggestion: 1. Repeat sputum culture 2. Aggressive pulmonary toilet if/when she is again extubated 3. Further management of her fluid status per Cardiology 4. Remove Faust catheter as soon as possible 5. Continue Cefazolin for 2 more days Barby Espitia MD is covering over the weekend
[2017-05-30 12:00] VITALS: BP 130/70
[2017-05-30 16:00] VITALS: BP 156/98
[2017-05-30 23:00] VITALS: BP 138/70
[2017-05-31 05:51] LABS: ABSOLUTE BASOPHIL COUNT 0 /CUMM (0.0-0.2); ABSOLUTE EOSINOPHIL COUNT 0 /CUMM (0.0-0.7); ABSOLUTE GRANULOCYTE CT 5.9 /CUMM (1.4-6.5); ABSOLUTE LYMPH COUNT 0.3 /CUMM (1.2-3.4); ABSOLUTE MONOCYTE COUNT 0 /CUMM (0.10-0.60); BASOPHIL % 0 % (0.0-2.0); EOSINOPHIL % 0 % (0-5); GRANULOCYTE % 95.5 % (42.2-75.2); HEMATOCRIT 22.6 % (37-47); MEAN CORPUSCULAR HGB 29.7 PG (27.0-31.0); MEAN CORPUSCULAR HGB CONC 32.4 G/DL (33.0-37.0); MEAN CORPUSCULAR VOLUME 91.5 FL (81.0-99.0); MEAN PLATELET VOLUME 10.8 FL (7.4-10.4); PLATELET COUNT 161 /CUMM (130-400); RED BLOOD CELL CT 2.47 /CUMM (4.20-5.40); WHITE BLOOD CELL COUNT 6.2 /CUMM (4.8-10.8)
[2017-05-31 08:00] VITALS: BP 138/70
--- NOTE | 2017-05-31 08:01 | PN- Resident CRCU ---
Subjective HPI/CRCU Issues: Atrial Fibrilliation Hypotension Acute Hypoxic Respiratory Failure 24 Hour Events: No acute events overnight. Her Hb fell down to 7.3 this morning. Diffuse increased attenuation of the right lung concerning for pulmonary edema or pnemonia. Objective Vital Signs & I&O Last 8 Hrs of Vitals and I&O: . Exam General Appearance: no apparent distress, awake, intubated Head: atraumatic, normal appearance Respiratory: chest non-tender, rhonchi Cardiovascular: tachycardia, irregularly irregular Gastrointestinal: soft, non-tender Extremities: trace bilateral lower extemity edema. 2+ nonpitting edema of upper extremities. Cranial Nerves: normal hearing Skin: small ulcer on left lower foot Skin Temp/Moisture Exam: Warm/Dry Sepsis Skin Exam (color): Normal for Ethnicity Weaning Parameters NIF: 23 Minute Volume: 8.9 Resp rate: 25 Vt: 300 Heart Rate: 94 Weaning Schedule Start Time: 1025 Minute Volume: 9.6 Resp Rate: 27 Vt: 335 Heart Rate: 94 End Time: 1330 Minute Volume: 8.6 Resp Rate: 26 Vt: 300 Heart Rate: 90 Current Medications: Current Medications Sig/Ric Start time Last Medication Dose Route Stop Time Status Admin Acetaminophen 650 MG Q6P PRN 05/19 0300 AC PO Acetaminophen 1,000 MG Q6P PRN 05/19 0300 AC IV Acetylcysteine 2 ML EVERY 4 HRS/AWAKE 05/28 2000 AC 05/31 INH 0839 Albumin Human 25 GM Q8H 05/24 0822 AC 05/31 IV 0830 Albuterol Sulfate 3 ML EVERY 4 HRS/AWAKE 05/30 0800 AC 05/31 INH 0838 Amiodarone HCl 200 MG Q8 05/30 1400 AC 05/31 PO 0529 Apixaban 2.5 MG BID 05/28 2200 AC 05/31 PO 0946 Artificial Tears 2 GTT 4 TIMES/DAY PRN 05/30 0745 AC OPH Ascorbic Acid 500 MG DAILY 05/29 1000 AC 05/31 PO 0946 Cefazolin Sodium 1,000 MG IQ8 05/27 1600 AC 05/31 IV 0830 Diltiazem HCl 30 MG Q6 05/31 1200 AC PO Diltiazem HCl 125 MG Q16H 05/30 1200 CAN Dextrose/Water 100 ML IV Diltiazem HCl 125 MG Q24H 05/29 1915 DC 05/29 Dextrose/Water 100 ML IV 05/30 1159 1958 Docusate Sodium 100 MG DAILY AC 05/23 0820 AC 05/29 PO 0541 Furosemide 40 MG 7:30 AM, & 4:30 PM 05/30 1630 AC 05/31 IV 0624 Glycerin 2 SPRAY Q2P PRN 05/27 0800 AC PO Glycerin/Mineral Oil 1 PEDRITO TID PRN 05/24 1100 AC TOP Insulin Aspart 0 Q4H 05/21 1800 AC 05/31 SC 1010 Insulin Detemir 8 UNITS BID 05/30 1000 AC 05/31 SC 1010 Magnesium Sulfate 1 GM ONCE ONE 05/30 0730 DC 05/30 Dextrose/Water 100 ML IV 05/30 1129 0746 Metoprolol Tartrate 25 MG ONCE ONE 05/30 1645 DC 05/30 PO 05/30 1646 1701 Metoprolol Tartrate 100 MG BID 05/30 1000 AC 05/31 PO 0946 Multivitamins 1 TAB DAILY 05/29 1000 AC 05/31 PO 0946 Pantoprazole Sodium 40 MG DAILY 05/20 0030 AC 05/31 IV 0946 Polyethylene Glycol 17 GM DAILY 05/23 1000 AC 05/29 PO 0936 Potassium Chloride 60 MEQ ONCE ONE 05/31 0630 DC 05/31 PO 05/31 0631 0623 Prednisone 70 MG DAILY 05/31 1000 AC 05/31 PO 0946 Zinc Sulfate 220 MG DAILY 05/29 1000 AC 05/31 PO 0946 Impression/Plan Impression/Problem List Impression: 86 year old woman with past medical history of hypertension, hyperlipidemia, [place] s/p PCI with stent, diabetes mellitus, and restless leg syndrome, history of atrial fibrillation with anticoagulation on hold due to severe thrombocytopenia was sent in from extended care facility for hypoxia, leukocytosis and productive cough. She was admitted on telemetry floor and transfered to ICU after patient desaturated became unresponsive. Assessment and Plan: Acute hypoxic respiratory failure likely secondary to HCAP: * Her white count has normalized and she's been afebrile. Her sputum culture is growing MSSA. * Repeat sputum culture - pending * Her CXR today shows diffuse increased attenuation of the right lung concerning for pnemonia or pulmonary edema. * Continue IV Cefazolin 1gm q8. Will continue it for 2 more days. * Reintubated again on 05/28. * ID recs appreciated. * Continue mucomist BID nebs and aggressive pulmonary toilet. * Will continue diuresis with IV Lasix 40mg BID. Atrial Fibrilliation with Hypotension: * Will continue metoprolol 100mg BID. * Continue oral Amiodarone at 200mg TID. * Added Cardizem 30mg q6 * Continue Elliquis 2.5mg BID. * Echo - Normal left ventricular ejection fraction visually estimated at > 60% . Immune Thrombocytopenia: * Her platelets have shown a slight decline today down to 161K * Continue Prednisone to 70mg per hematology as her Plt >150K * Daily CBC * s/p 1 unit transfusion of platelets 05/22. 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 * No need to further follow DIC panel. GARCÍA on CKD: /resolved * Cr 1.2 today. * Was likely contrast induced nephropathy initially. Unclear about current rise in Cr. * Nephro recs appreciated. * Strict I&Os. Diabetes Mellitus: * Contineu tube feeds with Glucerna 1.2. Will increase volume of flush to correct hypernatremia. * Levemir 8mg BID * Insulin SS. Adjusted per Endo's recommendations. Lower Extremity Skin Changes: * Was evaluated by vascular surgery. Recommend no surgical intervention at this time. * Ulcer on left foot base. Wound care notes appreciated. History of restless leg syndrome: * Sinemet was recently discontinued * Lyrica on hold currently. * Lubriderm to affected skin. DVT Prophylaxis: ALPS and Elliquis Code: Full Problem List: 1. A-fib Pain Ratin Tomorrow's Labs & Rationales: CBC, ICU bundle Plan DVT/Prophylaxis: mechanical
--- NOTE | 2017-05-31 08:16 | RADIOLOGY REPORT ---
EXAMINATION: XR PORTABLE CHEST CLINICAL INFORMATION: Check line and tubes. COMPARISON: Previous chest x-rays most recent from yesterday. TECHNIQUE: Portable frontal view of the chest was obtained. FINDINGS: The patient is rotated to the left. There is an endotracheal tube with tip 3 cm above the krystal. The tip of the nasogastric tube is not well seen. There is a right upper extremity PICC line with tip projecting over the SVC. The cardiac and mediastinal contours are stable. There is a [id number] left pleural effusion and left base atelectasis/consolidation that appears unchanged. There is increased attenuation of the right hemithorax. This is not appreciably changed from most recent exam from yesterday but appears increased from older exams from earlier this month. Differential would include asymmetric right-sided pulmonary edema and worsening right-sided pneumonia. There is blunting at the right costophrenic angle questionable for small right pleural effusion. There is no pneumothorax. IMPRESSION: Limited exam. Nasogastric tube not well seen. Satisfactory position of ET tube and right upper extremity PICC line. No change in erbur-[id number] left pleural effusion and atelectasis/consolidation at the left lung base. Diffuse increased attenuation of the right lung, question representing asymmetric distribution of pulmonary edema or right-sided pneumonia. Question small right pleural effusion.
--- NOTE | 2017-05-31 09:40 | PN- Pulmonary ---
Subjective HPI/Critical Care Issues: Patient remains intubated though weaning parameters appear improved heart rate appears better controlled Objective Current Medications: Current Medications Sig/Ric Start time Last Medication Dose Route Stop Time Status Admin Acetaminophen 650 MG Q6P PRN 05/19 0300 AC PO Acetaminophen 1,000 MG Q6P PRN 05/19 0300 AC IV Acetylcysteine 2 ML EVERY 4 HRS/AWAKE 05/28 2000 AC 05/31 INH 0839 Albumin Human 25 GM Q8H 05/24 0822 AC 05/31 IV 0830 Albuterol Sulfate 3 ML EVERY 4 HRS/AWAKE 05/30 0800 AC 05/31 INH 0838 Amiodarone HCl 200 MG Q8 05/30 1400 AC 05/31 PO 0529 Apixaban 2.5 MG BID 05/28 2200 AC 05/30 PO 2146 Artificial Tears 2 GTT 4 TIMES/DAY PRN 05/30 0745 AC OPH Ascorbic Acid 500 MG DAILY 05/29 1000 AC 05/30 PO 0908 Cefazolin Sodium 1,000 MG IQ8 05/27 1600 AC 05/31 IV 0830 Diltiazem HCl 125 MG Q16H 05/30 1200 CAN Dextrose/Water 100 ML IV Diltiazem HCl 125 MG Q24H 05/29 1915 DC 05/29 Dextrose/Water 100 ML IV 05/30 1159 1958 Docusate Sodium 100 MG DAILY AC 05/23 0820 AC 05/29 PO 0541 Furosemide 40 MG 7:30 AM, & 4:30 PM 05/30 1630 AC 05/31 IV 0624 Glycerin 2 SPRAY Q2P PRN 05/27 0800 AC PO Glycerin/Mineral Oil 1 PEDRITO TID PRN 05/24 1100 AC TOP Insulin Aspart 0 Q4H 05/21 1800 AC 05/31 SC 0528 Insulin Detemir 8 UNITS BID 05/30 1000 AC 05/30 SC 2147 Magnesium Sulfate 1 GM ONCE ONE 05/30 0730 DC 05/30 Dextrose/Water 100 ML IV 05/30 1129 0746 Metoprolol Tartrate 25 MG ONCE ONE 05/30 1645 DC 05/30 PO 05/30 1646 1701 Metoprolol Tartrate 75 MG ONCE ONE 05/30 1030 DC 05/30 PO 05/30 1031 1052 Metoprolol Tartrate 100 MG BID 05/30 1000 AC 05/30 PO 2147 Multivitamins 1 TAB DAILY 05/29 1000 AC 05/30 PO 0856 Pantoprazole Sodium 40 MG DAILY 05/20 0030 AC 05/30 IV 0746 Polyethylene Glycol 17 GM DAILY 05/23 1000 AC 05/29 PO 0936 Potassium Chloride 60 MEQ ONCE ONE 05/31 0630 DC 05/31 PO 05/31 0631 0623 Prednisone 70 MG DAILY 05/31 1000 AC PO Prednisone 80 MG DAILY 05/27 1145 DC 05/30 PO 0856 Zinc Sulfate 220 MG DAILY 05/29 1000 AC 05/30 PO 0857 Vital Signs & I&O Last 24 Hrs of Vitals and I&O: Vital Signs Date Time Temp Pulse Resp B/P B/P Pulse O2 O2 Flow FiO2 Mean Ox Delivery Rate 05/31 0850 35 05/31 0800 98.8 116 23 138/70 99 Ventilator 35% 05/31 0609 35 05/31 0529 127 132/61 05/31 0400 96 Ventilator 35% 05/31 0231 35 05/31 0000 95 Ventilator 35% 05/30 2300 97.7 123 27 138/70 95 Ventilator 35% 05/30 2220 35 05/30 2147 93 110/66 05/30 2146 106 110/66 05/30 2000 97 Ventilator 35% 05/30 1701 144 157/103 05/30 1604 35 05/30 1600 98 Ventilator 35% 05/30 1600 98.9 121 16 156/98 98 Ventilator 35% 05/30 1417 130 157/103 05/30 1404 35 05/30 1200 35 05/30 1200 96 Ventilator 35% 05/30 1200 97.4 110 19 130/70 96 Ventilator 35% Intake & Output 05/31 1600 05/31 0800 05/31 0000 Intake Total 940 940 Output Total 700 1124 Balance 240 -184 Intake, IV 100 134 Intake, Oral 0 0 Intake, Tube 480 436 Feeding Intake, Tube 360 370 Irrigant Number 1 1 Bowel Movements Output, Urine 700 1124 And saturation 99% FiO2 0.35 exam for chest shows occasional rhonchi cardiac exam shows a regular rhythm abdomen is soft nontender Impression/Plan Impression/Plan Impression/Plan: 6-year-old recently intubated who appears to be clinically improved with improved weaning parameters. He continues to have evidence of respiratory alkalosis. Repeat cultures are pending Recommendations: Begin CPAP pressure support trials as tolerated. Reduce respiratory rate to 12 and recheck arterial blood gas. Taper FiO2 as saturations allow.
--- NOTE | 2017-05-31 10:06 | PN- Cardiology ---
Subjective Subjective: Patient awake, remains intubated. Responds to verbal commands Review of Systems: Non obtainable Objective Vital Signs and I&Os Vital Signs Date Time Temp Pulse Resp B/P B/P Pulse O2 O2 Flow FiO2 Mean Ox Delivery Rate 05/31 0946 135 157/94 05/31 0850 35 05/31 0800 98.8 116 23 138/70 99 Ventilator 35% 05/31 0609 35 05/31 0529 127 132/61 05/31 0400 96 Ventilator 35% 05/31 0231 35 05/31 0000 95 Ventilator 35% 05/30 2300 97.7 123 27 138/70 95 Ventilator 35% 05/30 2220 35 05/30 2147 93 110/66 05/30 2146 106 110/66 05/30 1999 97 Ventilator 35% 05/30 1701 144 157/103 05/30 1604 35 05/30 1600 98 Ventilator 35% 05/30 1600 98.9 121 16 156/98 98 Ventilator 35% 05/30 1417 130 157/103 05/30 1404 35 05/30 1200 35 05/30 1200 96 Ventilator 35% 05/30 1200 97.4 110 19 130/70 96 Ventilator 35% Intake & Output 05/31 1600 05/31 0800 05/31 0000 05/30 1600 05/30 0800 05/30 0000 Intake Total 157 410 3637.4 699 675 Output Total 700 1124 1200 220 350 Balance 240 -184 -55.6 479 325 Intake, IV 100 134 273.4 148 185 Intake, Oral 0 0 0 Intake, Tube 480 436 331 311 210 Feeding Intake, Tube 360 370 540 240 280 Irrigant Number 1 1 1 2 0 Bowel Movements Output, Urine 700 1124 1200 220 350 Patient 276 lb Weight Weight Bed scale Measurement Method Physical Exam: HEENT-PERRLA Neck-JVP normal, no bruit Lungs-scattered rhonchi anteriorly Heart-S1S2 irregular tachycardia Abdomen-soft, obese, BS+,no organomegaly,no masses Extr-dermatitis, decreased edema, diminished distal pulses Neuro-non focal Skin-no rash Current Medications: Current Medications Sig/Ric Start time Last Medication Dose Route Stop Time Status Admin Acetaminophen 650 MG Q6P PRN 05/19 299 AC PO Acetaminophen 1,000 MG Q6P PRN 05/19 299 AC IV Acetylcysteine 2 ML EVERY 4 HRS/AWAKE 05/28 1999 AC 05/31 INH 0839 Albumin Human 25 GM Q8H 05/24 0822 AC 05/31 IV 0830 Albuterol Sulfate 3 ML EVERY 4 HRS/AWAKE 05/30 0800 AC 05/31 INH 0838 Amiodarone HCl 200 MG Q8 05/30 1400 AC 05/31 PO 0529 Apixaban 2.5 MG BID 05/28 2200 AC 05/31 PO 0946 Artificial Tears 2 GTT 4 TIMES/DAY PRN 05/30 0745 AC OPH Ascorbic Acid 500 MG DAILY 05/29 1000 AC 05/31 PO 0946 Cefazolin Sodium 1,000 MG IQ8 05/27 1600 AC 05/31 IV 0830 Diltiazem HCl 125 MG Q16H 05/30 1200 CAN Dextrose/Water 100 ML IV Diltiazem HCl 125 MG Q24H 05/29 1915 FL 05/29 Dextrose/Water 100 ML IV 05/30 1159 1958 Docusate Sodium 100 MG DAILY AC 05/23 0820 AC 05/29 PO 0541 Furosemide 40 MG 7:30 AM, & 4:30 PM 05/30 1630 05/31 IV 0624 Glycerin 2 SPRAY Q2P PRN 05/27 0800 PO Glycerin/Mineral Oil 1 PEDRITO TID PRN 05/24 1100 TOP Insulin Aspart 0 Q4H 05/21 1800 05/31 SC 0528 Insulin Detemir 8 UNITS BID 05/30 1000 05/30 SC 2147 Magnesium Sulfate 1 GM ONCE ONE 05/30 0730 FL 05/30 Dextrose/Water 100 ML IV 05/30 1129 0746 Metoprolol Tartrate 25 MG ONCE ONE 05/30 1645 DC 05/30 PO 05/30 1646 1701 Metoprolol Tartrate 75 MG ONCE ONE 05/30 1030 DC 05/30 PO 05/30 1031 1052 Metoprolol Tartrate 100 MG BID 05/30 1000 AC 05/31 PO 0946 Multivitamins 1 TAB DAILY 05/29 1000 AC 05/31 PO 0946 Pantoprazole Sodium 40 MG DAILY 05/20 0030 05/31 IV 0946 Polyethylene Glycol 17 GM DAILY 05/23 1000 AC 05/29 PO 0936 Potassium Chloride 60 MEQ ONCE ONE 05/31 0630 DC 05/31 PO 05/31 0631 0623 Prednisone 70 MG DAILY 05/31 1000 AC 05/31 PO 0946 Zinc Sulfate 220 MG DAILY 05/29 1000 AC 05/31 PO 0946 Results Last 48 Hrs of Labs/Mics: Laboratory Tests 05/31/17 0356: Anion Gap 18 H, Estimated GFR 43 L, Glucose 270 H, Calcium 8.8, Phosphorus 2.8, Magnesium 1.9, Total Bilirubin 0.5, AST 25, ALT 34, Albumin 3.6, CBC w Diff MAN DIFF ORDERED, RBC 2.47 L, MCV 91.5, MCH 29.7, MCHC 32.4 L, RDW 22.0 H, MPV 10.8 H, Gran % 95.5 H, Lymphocytes % 4.2 L, Monocytes % 0.3 L, Eosinophils % 0, Basophils % 0, Absolute Granulocytes 5.9, Segmented Neutrophils 93 H, Band Neutrophils 2, Absolute Lymphocytes 0.3 L, Lymphocytes 3 L, Monocytes 2, Absolute Monocytes 0 L, Absolute Eosinophils 0, Absolute Basophils 0, Platelet Estimate ADEQUATE, Polychromasia 1+, Hypochromic-Microcytic 2+, Poikilocytosis 1+, Ludlow Cells 1+, Fld Total RBCs Counted 100 05/30/17 0415: pH 7.52 H, pCO2 27 L, pO2 70 L, HCO3 22, ABG O2 Sat (Measured) 92.0 L, P-50 (Temp Corrected) Y, Carboxyhemoglobin 0.3 L, O2 Concentration % 35%, Temperature 98.4, Respiration Rate 14, O2 Delivery Method ESPRIT, Vent Mode AC, Expiratory Pressure 5, Tidal Volume 500, Phlebotomy Draw Site LEFT RADIAL 05/30/17 0410: Anion Gap 18 H, Estimated GFR 43 L, Glucose 173 H, Calcium 8.9, Phosphorus 2.8, Magnesium 1.8, Total Bilirubin 0.6, AST 26, ALT 42, Albumin 3.7, PT 20.0 H , INR 1.92 H, APTT 40 H, Fibrinogen Activity 153 L, CBC w Diff NO MAN DIFF REQ, RBC 2.80 L, MCV 92.0, MCH 28.9, MCHC 31.4 L, RDW 22.2 H, MPV 10.5 H, Gran % 93.8 H, Lymphocytes % 4.4 L, Monocytes % 1.6 L, Eosinophils % 0, Basophils % 0.2, Absolute Granulocytes 7.9 H, Absolute Lymphocytes 0.4 L, Absolute Monocytes 0.1, Absolute Eosinophils 0, Absolute Basophils 0 Recent Imaging Studies: CXR results noted Assessment/Plan Assessment/Plan 1. Acute hypoxic respiratory failure/septic shock secondary to MSSA PNA on Oxacillin Extubated 5 days ago, now reintubated, CXR with increased right markings-?PNA vs assymetric edema 2. atrial fibrillation, off iv cardizem, rate now increased 3. GARCÍA-creatinine stable, sodium decreased 4.Thrombocytopenia/ITP, on steroids 5. Anemia- HCT decreased Plan: continue Lasix to 40 mg iv bid repeat CBC in the afternoon, if HCT below 24, transfuse 1 UPRBC cardizem 30 mg qid continue amiodarone to 200 mg tid continue metoprolol to 100 mg bid Continue telemetry? Yes
--- NOTE | 2017-05-31 11:42 | PN- Infect Dx ---
Subjective Subjective: No fever; remains intubated; francis resp secretions, 2 loose BM's Review of Systems Comments: 12 points reviewed as noted, otherwise negative. Objective Last 24 Hrs of Vital Signs/I&O Vital Signs Date Time Temp Pulse Resp B/P B/P Pulse O2 O2 Flow FiO2 Mean Ox Delivery Rate 05/31 0946 135 157/94 05/31 0850 35 05/31 0800 98.8 116 23 138/70 99 Ventilator 35% 05/31 0609 35 05/31 0529 127 132/61 05/31 0400 96 Ventilator 35% 05/31 0231 35 05/31 0000 95 Ventilator 35% 05/30 2300 97.7 123 27 138/70 95 Ventilator 35% 05/30 2220 35 05/30 2147 93 110/66 05/30 2146 106 110/66 05/30 2000 97 Ventilator 35% 05/30 1701 144 157/103 05/30 1604 35 05/30 1600 98 Ventilator 35% 05/30 1600 98.9 121 16 156/98 98 Ventilator 35% 05/30 1417 130 157/103 05/30 1404 35 05/30 1200 35 05/30 1200 96 Ventilator 35% 05/30 1200 97.4 110 19 130/70 96 Ventilator 35% Intake & Output 05/31 1600 05/31 0800 05/31 0000 Intake Total 940 940 Output Total 700 1124 Balance 240 -184 Intake, IV 100 134 Intake, Oral 0 0 Intake, Tube 480 436 Feeding Intake, Tube 360 370 Irrigant Number 1 1 Bowel Movements Output, Urine 700 1124 Physical Exam Other Physical Findings: She is awake and alert on the ventilator in no acute distress HEENT AT, ETT/OG tube in place Lungs bilateral rhonchi, few wheezes, BS diminished base Heart irregular rhythm Abdomen is obese, soft, nontender with positive bowel sounds Extremities chronic venous stasis changes both lower extremities; PICC in the right upper extremity with no inflammation at the site Faust catheter remains in place Results Last 24 Hours of Lab Results: Laboratory Tests 05/31 0356 Chemistry Sodium (137 - 145 mmol/L) 148 H Potassium (3.5 - 5.1 mmol/L) 3.5 Chloride (98 - 107 mmol/L) 105 Carbon Dioxide (22 - 30 mmol/L) 25 Anion Gap (5 - 16) 18 H BUN (7 - 17 mg/dL) 52 H Creatinine (0.5 - 1.0 mg/dL) 1.2 H Estimated GFR (>60 ml/min) 43 L Glucose (65 - 99 mg/dL) 270 H Calcium (8.4 - 10.2 mg/dL) 8.8 Phosphorus (2.5 - 4.5 mg/dL) 2.8 Magnesium (1.6 - 2.3 mg/dL) 1.9 Total Bilirubin (0.2 - 1.3 mg/dL) 0.5 AST (14 - 36 U/L) 25 ALT (9 - 52 U/L) 34 Albumin (3.5 - 5.0 g/dL) 3.6 Hematology CBC w Diff MAN DIFF ORDERED WBC (4.8 - 10.8 /CUMM) 6.2 RBC (4.20 - 5.40 /CUMM) 2.47 L Hgb (12.0 - 16.0 G/DL) 7.3 *L Hct (37 - 47 %) 22.6 L MCV (81.0 - 99.0 FL) 91.5 MCH (27.0 - 31.0 PG) 29.7 MCHC (33.0 - 37.0 G/DL) 32.4 L RDW (11.5 - 14.5 %) 22.0 H Plt Count (130 - 400 /CUMM) 161 MPV (7.4 - 10.4 FL) 10.8 H Gran % (42.2 - 75.2 %) 95.5 H Lymphocytes % (20.5 - 51.1 %) 4.2 L Monocytes % (1.7 - 9.3 %) 0.3 L Eosinophils % (0 - 5 %) 0 Basophils % (0.0 - 2.0 %) 0 Absolute Granulocytes (1.4 - 6.5 /CUMM) 5.9 Segmented Neutrophils (42.2 - 75.2 %) 93 H Band Neutrophils (0.0 - 5.0 %) 2 Absolute Lymphocytes (1.2 - 3.4 /CUMM) 0.3 L Lymphocytes (20.5 - 51.1 %) 3 L Monocytes (1.7 - 9.3 %) 2 Absolute Monocytes (0.10 - 0.60 /CUMM) 0 L Absolute Eosinophils (0.0 - 0.7 /CUMM) 0 Absolute Basophils (0.0 - 0.2 /CUMM) 0 Platelet Estimate (ADEQUATE) ADEQUATE Polychromasia 1+ Hypochromic-Microcytic 2+ Poikilocytosis 1+ Alberto Cells 1+ Other Body Source Fld Total RBCs Counted (%) 100 Last 24 Hours of Silvano Results: SPEC #: [id number] MARIBEL: 05/31/17 STATUS: RES RECD: 05/31/17-[address]: Jaron RAMOS,Denisse SOURCE: LOWER RESP ENTR: 05/30/17-[address]: Kranthi RAMOS,July SPDESC: SPUTUM Endy RAMOS, Nahed Pyle MD,Jordi ORDERED: LOWER RESPIRATO Procedure Result > GRAM STAIN Final 05/31/17-0940 WHITE BLOOD CELLS MANY SQUAMOUS CELLS RARE GRAM NEGATIVE RODS MANY GRAM NEGATIVE COCCI RARE LOWER RESPIRATORY CULTURE - PENDING ORDERED: LOWER RESPIRATO Procedure Result > GRAM STAIN Final 05/20/17-1137 WHITE BLOOD CELLS MANY GRAM POSITIVE COCCI RARE GRAM NEGATIVE COCCI RARE > LOWER RESPIRATORY CULTURE Final 05/22/17-1305 Light mixed reema after 1 day with Light growth of: 1.YEAST 2.STAPH AUREUS ISOLATED 2. STAPH AUREUS RX ABN ------ --- 2. STAPH AUREUS RX AB ------ -- CEFAZOLIN S AMOXICILLIN/CLAVULINIC ACID S AMPICILLIN/SULBACTAM S TETRACYCLINE S TRIMETHOPRIM/SULFAMETHOXAZOLE S AZITHROMYCIN R CLINDAMYCIN R ERYTHROMYCIN R OXACILLIN S VANCOMYCIN S Recent Imaging Studies: FINDINGS: The patient is rotated to the left. There is an endotracheal tube with tip 3 cm above the krystal. The tip of the nasogastric tube is not well seen. There is a right upper extremity PICC line with tip projecting over the SVC. The cardiac and mediastinal contours are stable. There is a [id number] left pleural effusion and left base atelectasis/consolidation that appears unchanged. There is increased attenuation of the right hemithorax. This is not appreciably changed from most recent exam from yesterday but appears increased from older exams from earlier this month. Differential would include asymmetric right-sided pulmonary edema and worsening right-sided pneumonia. There is blunting at the right costophrenic angle questionable for small right pleural effusion. There is no pneumothorax. IMPRESSION: Limited exam. Nasogastric tube not well seen. Satisfactory position of ET tube and right upper extremity PICC line. No change in iicvy-[id number] left pleural effusion and atelectasis/consolidation at the left lung base. Diffuse increased attenuation of the right lung, question representing asymmetric distribution of pulmonary edema or right-sided pneumonia. Question small right pleural effusion. DICTATED BY: Sb RAMOS,Clari Dockery DATE/TIME DICTATED:05/31/17 / 0756 Assessment/Plan Impression: 86-year-old woman with past medical history of hypertension, hyperlipidemia, [place] s/p PCI with stenting, diabetes mellitus, and restless leg syndrome, history of atrial fibrillation admitted on 05/19/17. Stable status post reintubation 3 days ago for a collapse of her left lung, with continued improvement in the aeration on the left, but with an increased opacity on the right, possibly secondary to fluid, though she has been continued on Lasix, or aspiration pneumonia, though her temperatures and white blood cell count remain normal (on steroids) and Cefazolin now Day 13 of treatment for MSSA pneumonia. Worsening anemia; WBC wnl (although L shift present) Suggestion: 1. F/U sputum culture results; trend CBC. 2. Pulmonary toilet. 3. Continue Cefazolin D#13/14 pending repeat sputum cx. 4. If worsening diarrhea obtain stool for C. difficile.
[2017-05-31 12:00] VITALS: BP 130/80
--- NOTE | 2017-05-31 13:58 | PN- Diabetes ---
Assessment/Plan Assessment: Patient is now reintubated. She is on a respirator and sedated. Her steroid dose is prednisone 70 mg once a day. She is presently on 8 units of Levemir twice a day. Her tube feedingsis at 65 mL/h. She is also on every 4 hour NovoLog coverage. Her FSGs were 282, 261, 310 and 291. The patient's serum sodium is 148 this morning. Plan: 1. increase Levemir to 10 units twice a day; 2. adjust Novolog coverage every 4 hours; detail see the inpatient DM order; 3. monitor FSGs; hold Novolog if feeding is held. 4. increase free water via feeding tube. 5. monitor electrolytes. will follow. Inpatient Diabetes Orders Every 4 Hours: Bolus Insulin: Novolog < 80 mg/dl: no coverage 80-100 mg/dl: no coverage 101-120 mg/dl: no coverage 121-150 mg/dl: 4 units 151-200 mg/dl: 6 units 201-250 mg/dl: 8 units 251-300 mg/dl: 10 units 301-350 mg/dl: 12 units 351-400 mg/dl: 14 units > 400 mg/dl: 16 units Subjective Subjective: Patient is intubated. Objective Last 24 Hrs of Vital Signs/I&O Vital Signs Date Time Temp Pulse Resp B/P B/P Pulse O2 O2 Flow FiO2 Mean Ox Delivery Rate 05/31 1200 94 Ventilator 35% 05/31 1200 98.6 115 19 130/80 94 Ventilator 35% 05/31 1152 117 146/102 05/31 0946 135 157/94 05/31 0850 35 05/31 0800 98.8 116 23 138/70 99 Ventilator 35% 05/31 0800 99 Ventilator 35% 05/31 0609 35 05/31 0529 127 132/61 05/31 0400 96 Ventilator 35% 05/31 0231 35 05/31 0000 95 Ventilator 35% 05/30 2300 97.7 123 27 138/70 95 Ventilator 35% 05/30 2220 35 05/30 2147 93 110/66 05/30 2146 106 110/66 05/30 2000 97 Ventilator 35% 05/30 1701 144 157/103 05/30 1604 35 05/30 1600 98 Ventilator 35% 05/30 1600 98.9 121 16 156/98 98 Ventilator 35% 05/30 1417 130 157/103 05/30 1404 35 Intake & Output 05/31 1600 05/31 0800 05/31 0000 Intake Total 940 940 Output Total 700 1124 Balance 240 -184 Intake, IV 100 134 Intake, Oral 0 0 Intake, Tube 480 436 Feeding Intake, Tube 360 370 Irrigant Number 1 1 Bowel Movements Output, Urine 700 1124 Patient 282 lb Weight Weight Bed scale Measurement Method Findings Pertinent Lab/Silvano Results: Laboratory Tests 05/31 0356 Chemistry Sodium (137 - 145 mmol/L) 148 H Potassium (3.5 - 5.1 mmol/L) 3.5 Chloride (98 - 107 mmol/L) 105 Carbon Dioxide (22 - 30 mmol/L) 25 Anion Gap (5 - 16) 18 H BUN (7 - 17 mg/dL) 52 H Creatinine (0.5 - 1.0 mg/dL) 1.2 H Estimated GFR (>60 ml/min) 43 L Glucose (65 - 99 mg/dL) 270 H Calcium (8.4 - 10.2 mg/dL) 8.8 Phosphorus (2.5 - 4.5 mg/dL) 2.8 Magnesium (1.6 - 2.3 mg/dL) 1.9 Total Bilirubin (0.2 - 1.3 mg/dL) 0.5 AST (14 - 36 U/L) 25 ALT (9 - 52 U/L) 34 Albumin (3.5 - 5.0 g/dL) 3.6 Hematology CBC w Diff MAN DIFF ORDERED WBC (4.8 - 10.8 /CUMM) 6.2 RBC (4.20 - 5.40 /CUMM) 2.47 L Hgb (12.0 - 16.0 G/DL) 7.3 *L Hct (37 - 47 %) 22.6 L MCV (81.0 - 99.0 FL) 91.5 MCH (27.0 - 31.0 PG) 29.7 MCHC (33.0 - 37.0 G/DL) 32.4 L RDW (11.5 - 14.5 %) 22.0 H Plt Count (130 - 400 /CUMM) 161 MPV (7.4 - 10.4 FL) 10.8 H Gran % (42.2 - 75.2 %) 95.5 H Lymphocytes % (20.5 - 51.1 %) 4.2 L Monocytes % (1.7 - 9.3 %) 0.3 L Eosinophils % (0 - 5 %) 0 Basophils % (0.0 - 2.0 %) 0 Absolute Granulocytes (1.4 - 6.5 /CUMM) 5.9 Segmented Neutrophils (42.2 - 75.2 %) 93 H Band Neutrophils (0.0 - 5.0 %) 2 Absolute Lymphocytes (1.2 - 3.4 /CUMM) 0.3 L Lymphocytes (20.5 - 51.1 %) 3 L Monocytes (1.7 - 9.3 %) 2 Absolute Monocytes (0.10 - 0.60 /CUMM) 0 L Absolute Eosinophils (0.0 - 0.7 /CUMM) 0 Absolute Basophils (0.0 - 0.2 /CUMM) 0 Platelet Estimate (ADEQUATE) ADEQUATE Polychromasia 1+ Hypochromic-Microcytic 2+ Poikilocytosis 1+ Mission Cells 1+ Other Body Source Fld Total RBCs Counted (%) 100
[2017-05-31 15:03] LABS: ABSOLUTE BASOPHIL COUNT 0 /CUMM (0.0-0.2); ABSOLUTE EOSINOPHIL COUNT 0 /CUMM (0.0-0.7); ABSOLUTE GRANULOCYTE CT 5.6 /CUMM (1.4-6.5); ABSOLUTE LYMPH COUNT 0.1 /CUMM (1.2-3.4); ABSOLUTE MONOCYTE COUNT 0 /CUMM (0.10-0.60); BASOPHIL % 0 % (0.0-2.0); EOSINOPHIL % 0.2 % (0-5); GRANULOCYTE % 97.9 % (42.2-75.2); HEMATOCRIT 21.8 % (37-47); MEAN CORPUSCULAR HGB 29.6 PG (27.0-31.0); MEAN CORPUSCULAR HGB CONC 32.4 G/DL (33.0-37.0); MEAN CORPUSCULAR VOLUME 91.4 FL (81.0-99.0); MEAN PLATELET VOLUME 10.4 FL (7.4-10.4); PLATELET COUNT 150 /CUMM (130-400); RBC DISTRIBUTION WIDTH 21.9 % (11.5-14.5); RED BLOOD CELL CT 2.38 /CUMM (4.20-5.40); WHITE BLOOD CELL COUNT 5.7 /CUMM (4.8-10.8)
[2017-05-31 16:00] VITALS: BP 112/54
--- NOTE | 2017-05-31 19:26 | Event Note ---
Event Note Event Note: Situation: Patient had an allergic reaction to blood transfusion Brief: Patient had a drop in H&H this morning. After receiving 50% of blood, she became tachypneic, tremulous and had a drop in her oxygen saturations. On auscultation her chest had increase rhonchi and wheezing. A/R: * Increased FiO2 to 50% from 35%. * One dose of IV benedryl 50mg and IV Solu-Medrol 40mg * Repeat CXR ordered * Blood sent down to lab for further work up of transfusion reaction
--- NOTE | 2017-05-31 21:08 | RADIOLOGY REPORT ---
EXAMINATION: XR PORTABLE CHEST CLINICAL INFORMATION: Increased rhonchi, wheezing COMPARISON: Same day chest x-ray TECHNIQUE: Portable portable AP 85 degrees view of the chest was obtained. FINDINGS: The study is significantly limited secondary to technical factors. The patient's chin overlies the upper lung and the patient is significantly rotated to the left. An endotracheal tube terminates approximately 5.3 cm above the krystal. An NG tube is likely in place. The distal tip is not identified. There is obscuration of the left hemidiaphragm possibly related to underlying consolidation and/or effusion. A right lower lobe opacity with small associated effusion is present. The right upper lobe appears grossly clear. Streaky opacities are present within the visualized left upper lobe. IMPRESSION: 1. Significantly limited examination. 2. Compared to the exam from earlier this same day there is improved aeration of the right upper lobe. There is apparent decreased aeration involving the left upper lobe. There may be a developing left lower lobe pneumonia with associated effusion. There is likely a right sided pleural effusion with associated atelectasis and/or consolidation. 3. Satisfactory positioning of endotracheal tube. 4. The tip of the NG tube is not visualized. Consider portable abdominal exam for further assessment and confirmation of positioning if needed.
[2017-05-31 22:01] LABS: ABSOLUTE BASOPHIL COUNT 0 /CUMM (0.0-0.2); ABSOLUTE EOSINOPHIL COUNT 0 /CUMM (0.0-0.7); ABSOLUTE GRANULOCYTE CT 9.9 /CUMM (1.4-6.5); ABSOLUTE LYMPH COUNT 0.2 /CUMM (1.2-3.4); ABSOLUTE MONOCYTE COUNT 0.1 /CUMM (0.10-0.60); BASOPHIL % 0 % (0.0-2.0); EOSINOPHIL % 0 % (0-5); GRANULOCYTE % 97.6 % (42.2-75.2); HEMATOCRIT 25.1 % (37-47); MEAN CORPUSCULAR HGB 29.5 PG (27.0-31.0); MEAN CORPUSCULAR HGB CONC 32.3 G/DL (33.0-37.0); MEAN CORPUSCULAR VOLUME 91.4 FL (81.0-99.0); MEAN PLATELET VOLUME 9.8 FL (7.4-10.4); PLATELET COUNT 157 /CUMM (130-400); RBC DISTRIBUTION WIDTH 21.2 % (11.5-14.5); RED BLOOD CELL CT 2.74 /CUMM (4.20-5.40)
[2017-05-31 22:08] LABS: WHITE BLOOD CELL COUNT 10.1 /CUMM (4.8-10.8)
[2017-05-31 23:00] VITALS: BP 110/72
[2017-06-01 04:22] LABS: ABSOLUTE BASOPHIL COUNT 0 /CUMM (0.0-0.2); ABSOLUTE EOSINOPHIL COUNT 0 /CUMM (0.0-0.7); ABSOLUTE LYMPH COUNT 0.2 /CUMM (1.2-3.4); ABSOLUTE MONOCYTE COUNT 0 /CUMM (0.10-0.60); BASOPHIL % 0 % (0.0-2.0); EOSINOPHIL % 0 % (0-5)
[2017-06-01 04:29] LABS: ABSOLUTE GRANULOCYTE CT 8.3 /CUMM (1.4-6.5); HEMATOCRIT 21.9 % (37-47); MEAN CORPUSCULAR HGB 29.7 PG (27.0-31.0); MEAN CORPUSCULAR HGB CONC 32.5 G/DL (33.0-37.0); MEAN CORPUSCULAR VOLUME 91.4 FL (81.0-99.0); MEAN PLATELET VOLUME 10.4 FL (7.4-10.4); PLATELET COUNT 138 /CUMM (130-400); RBC DISTRIBUTION WIDTH 21.4 % (11.5-14.5); WHITE BLOOD CELL COUNT 8.5 /CUMM (4.8-10.8)
[2017-06-01 08:00] VITALS: BP 132/66
--- NOTE | 2017-06-01 08:29 | RADIOLOGY REPORT ---
EXAMINATION: XR PORTABLE CHEST CLINICAL INFORMATION: Pneumonia. Pulmonary edema. Check line and tube position. COMPARISON: Previous x-rays most recent from yesterday TECHNIQUE: Portable frontal view of the chest was obtained. FINDINGS: There is an endotracheal tube with tip 5.5 cm above the krystal. There is a right jugular line with tip projecting over the cavoatrial junction. Nasogastric tube is seen projecting to the GE junction region. The tip is not seen. The cardiac silhouette is enlarged but stable. There is bilateral perihilar airspace disease that does not appear appreciably changed. The patient is slightly rotated to the left. There is loss of the left hemidiaphragm questionable denser left lower lobe consolidation/atelectasis. This appears unchanged. No significant pleural effusion is seen. There is no pneumothorax. IMPRESSION: Limited exam. Satisfactory position of ET tube and right upper extremity PICC line. Nasogastric tube tip is again not seen. Stable enlargement of the cardiac silhouette. Stable bilateral perihilar airspace disease. Differential would include pulmonary edema and pneumonia. There is a loss of the left hemidiaphragm questionable for denser left lower lobe atelectasis/consolidation. This appears unchanged.
--- NOTE | 2017-06-01 09:13 | PN- Resident CRCU ---
Subjective HPI/CRCU Issues: Atrial Fibrilliation Hypotension Acute Hypoxic Respiratory Failure 24 Hour Events: Patient was seen and examined this morning. She is getting her blood transfusion and remained hemodynamically stable. Chest x-ray from this morning showed stable bilateral perihilar airspace disease could be pulmonary edema/ pneumonia. Her heart rate remained in 113-128. Respiratory rate from 18-22, blood pressure 110-149/60-80. We will repeat her CBC at 2 PM. MAXIMUM TEMPERATURE of 101.4 last night. Her sputum culture grew Pseudomonas and we will change her antibiotics from cefazolin to Zosyn and we will add vancomycin if she continues to spike fever. Objective Vital Signs & I&O Last 8 Hrs of Vitals and I&O: Laboratory Tests 06/01 06/01 0625 0408 Blood Gas pH (7.35 - 7.45 PH) 7.49 H pCO2 (35 - 45 TORR) 32 L pO2 (80 - 100 TORR) 88 HCO3 (21 - 28 MEQ/L) 24 ABG O2 Sat (Measured) (>96.0 %) 97.0 P-50 (Temp Corrected) N Carboxyhemoglobin (1.5 - 5.0 %) 1.9 O2 Concentration % .40 Respiration Rate (BPM) 12 O2 Delivery Method VENT Vent Mode A/C Expiratory Pressure (CMH2O/P) 5 Tidal Volume (CC) 500 Chemistry Sodium (137 - 145 mmol/L) 146 H Potassium (3.5 - 5.1 mmol/L) 3.8 Chloride (98 - 107 mmol/L) 104 Carbon Dioxide (22 - 30 mmol/L) 27 Anion Gap (5 - 16) 15 BUN (7 - 17 mg/dL) 56 H Creatinine (0.5 - 1.0 mg/dL) 1.1 H Estimated GFR (>60 ml/min) 47 L Glucose (65 - 99 mg/dL) 190 H Calcium (8.4 - 10.2 mg/dL) 8.5 Phosphorus (2.5 - 4.5 mg/dL) 2.5 Magnesium (1.6 - 2.3 mg/dL) 1.8 Total Bilirubin (0.2 - 1.3 mg/dL) 0.6 AST (14 - 36 U/L) 23 ALT (9 - 52 U/L) 28 Albumin (3.5 - 5.0 g/dL) 3.3 L Hematology CBC w Diff MAN DIFF ORDERED WBC (4.8 - 10.8 /CUMM) 8.5 RBC (4.20 - 5.40 /CUMM) 2.40 L Hgb (12.0 - 16.0 G/DL) 7.1 *L Hct (37 - 47 %) 21.9 L MCV (81.0 - 99.0 FL) 91.4 MCH (27.0 - 31.0 PG) 29.7 MCHC (33.0 - 37.0 G/DL) 32.5 L RDW (11.5 - 14.5 %) 21.4 H Plt Count (130 - 400 /CUMM) 138 MPV (7.4 - 10.4 FL) 10.4 Gran % (42.2 - 75.2 %) 97.0 H Lymphocytes % (20.5 - 51.1 %) 2.5 L Monocytes % (1.7 - 9.3 %) 0.5 L Eosinophils % (0 - 5 %) 0 Basophils % (0.0 - 2.0 %) 0 Absolute Granulocytes (1.4 - 6.5 /CUMM) 8.3 H Absolute Lymphocytes (1.2 - 3.4 /CUMM) 0.2 L Absolute Monocytes (0.10 - 0.60 /CUMM) 0 L Absolute Eosinophils (0.0 - 0.7 /CUMM) 0 Absolute Basophils (0.0 - 0.2 /CUMM) 0 Platelet Estimate (ADEQUATE) DECREASED Hypochromic-Microcytic 1+ Poikilocytosis 1+ Anisocytosis 1+ Ovalocytes 1+ Miscellaneous Phlebotomy Draw Site RIGHT RADIAL 05/31 05/31 4506 1444 Chemistry Sodium (137 - 145 mmol/L) 148 H Potassium (3.5 - 5.1 mmol/L) 3.4 L Chloride (98 - 107 mmol/L) 104 Carbon Dioxide (22 - 30 mmol/L) 24 Anion Gap (5 - 16) 20 H BUN (7 - 17 mg/dL) 55 H Creatinine (0.5 - 1.0 mg/dL) 1.1 H Estimated GFR (>60 ml/min) 47 L Glucose (65 - 99 mg/dL) 209 H Calcium (8.4 - 10.2 mg/dL) 8.8 Phosphorus (2.5 - 4.5 mg/dL) 2.4 L Magnesium (1.6 - 2.3 mg/dL) 1.8 Total Bilirubin (0.2 - 1.3 mg/dL) 0.6 AST (14 - 36 U/L) 27 ALT (9 - 52 U/L) 33 Albumin (3.5 - 5.0 g/dL) 3.7 Hematology CBC w Diff NO MAN DIFF REQ MAN DIFF ORDERED WBC (4.8 - 10.8 /CUMM) 10.1 5.7 RBC (4.20 - 5.40 /CUMM) 2.74 L 2.38 L Hgb (12.0 - 16.0 G/DL) 8.1 L 7.1 *L Hct (37 - 47 %) 25.1 L 21.8 L MCV (81.0 - 99.0 FL) 91.4 91.4 MCH (27.0 - 31.0 PG) 29.5 29.6 MCHC (33.0 - 37.0 G/DL) 32.3 L 32.4 L RDW (11.5 - 14.5 %) 21.2 H 21.9 H Plt Count (130 - 400 /CUMM) 157 150 MPV (7.4 - 10.4 FL) 9.8 10.4 Gran % (42.2 - 75.2 %) 97.6 H 97.9 H Lymphocytes % (20.5 - 51.1 %) 1.7 L 1.4 L Monocytes % (1.7 - 9.3 %) 0.7 L 0.5 L Eosinophils % (0 - 5 %) 0 0.2 Basophils % (0.0 - 2.0 %) 0 0 Absolute Granulocytes (1.4 - 6.5 /CUMM) 9.9 H 5.6 Segmented Neutrophils (42.2 - 75.2 %) 96 H Band Neutrophils (0.0 - 5.0 %) 2 Absolute Lymphocytes (1.2 - 3.4 /CUMM) 0.2 L 0.1 L Lymphocytes (20.5 - 51.1 %) 1 L Absolute Monocytes (0.10 - 0.60 /CUMM) 0.1 0 L Absolute Eosinophils (0.0 - 0.7 /CUMM) 0 0 Absolute Basophils (0.0 - 0.2 /CUMM) 0 0 Metamyelocytes (0.0 - 1.0 %) 1 Platelet Estimate (ADEQUATE) ADEQUATE Polychromasia 1+ Hypochromic-Microcytic 1+ Anisocytosis 2+ Macrocytic Cells 1+ 05/31 1400 Blood Gas pH (7.35 - 7.45 PH) 7.52 H pCO2 (35 - 45 TORR) 30 L pO2 (80 - 100 TORR) 65 L HCO3 (21 - 28 MEQ/L) 23 ABG O2 Sat (Measured) (>96.0 %) 91.0 L Carboxyhemoglobin (1.5 - 5.0 %) 0.9 L O2 Concentration % 35 Respiration Rate (BPM) 12 O2 Delivery Method VENT Vent Mode AC Expiratory Pressure (CMH2O/P) 5 Tidal Volume (CC) 500 Miscellaneous Phlebotomy Draw Site LEFT RADIAL Exam General Appearance: no apparent distress, intubated Respiratory: chest non-tender, no respiratory distress, crackles, rhonchi Cardiovascular: irregularly irregular Gastrointestinal: soft, non-tender Weaning Parameters NIF: 23 Minute Volume: 8.9 Resp rate: 25 Vt: 300 Heart Rate: 94 Weaning Schedule Start Time: 1025 Minute Volume: 9.6 Resp Rate: 27 Vt: 335 Heart Rate: 94 End Time: 1330 Minute Volume: 8.6 Resp Rate: 26 Vt: 300 Heart Rate: 90 Current Medications: Current Medications Sig/Ric Start time Last Medication Dose Route Stop Time Status Admin Acetaminophen 3,000 MG .STK-MED ONE 05/31 2007 DC IV 05/31 2007 Acetaminophen 650 MG Q6P PRN 05/19 0300 AC PO Acetaminophen 1,000 MG Q6P PRN 05/19 0300 AC 05/31 IV 2010 Acetylcysteine 2 ML EVERY 4 HRS/AWAKE 05/28 2000 AC 06/01 INH 0917 Albumin Human 25 GM Q8H 05/24 0822 AC 06/01 IV 1028 Albuterol Sulfate 3 ML EVERY 4 HRS/AWAKE 05/30 0800 AC 06/01 INH 0916 Amiodarone HCl 200 MG Q8 05/30 1400 AC 06/01 PO 0533 Apixaban 2.5 MG BID 05/28 2200 AC 06/01 PO 0952 Artificial Tears 2 GTT 4 TIMES/DAY PRN 05/30 0745 AC OPH Ascorbic Acid 500 MG DAILY 05/29 1000 AC 06/01 PO 0951 Cefazolin Sodium 1,000 MG IQ8 05/27 1600 AC 06/01 IV 1026 Diltiazem HCl 30 MG Q6 05/31 1200 AC 06/01 PO 0533 Diphenhydramine HCl 50 MG ONCE ONE 05/31 1915 DC 05/31 IV 05/31 191 1927 Docusate Sodium 100 MG DAILY AC 05/23 0820 AC 05/29 PO 0541 Furosemide 20 MG ONCE ONE 06/01 0715 DC 06/01 IV 06/01 0716 1028 Furosemide 20 MG ONCE ONE 06/01 0045 DC 06/01 IV 06/01 0046 0055 Furosemide 40 MG 7:30 AM, & 4:30 PM 05/30 1630 AC 06/01 IV 0644 Glycerin 2 SPRAY Q2P PRN 05/27 0800 AC PO Glycerin/Mineral Oil 1 PEDRITO TID PRN 05/24 1100 AC TOP Insulin Aspart 0 Q4H 05/21 1800 AC 06/01 SC 1027 Insulin Detemir 10 UNITS BID 05/31 2200 AC 06/01 SC 0951 Insulin Detemir 8 UNITS BID 05/30 1000 DC 05/31 SC 1010 Magnesium Oxide 400 MG ONE ONE 06/01 0930 DC 06/01 PO 06/01 0931 0950 Magnesium Sulfate 1 GM ONCE ONE 06/01 0915 CAN Dextrose/Water 100 ML IV 06/01 1314 Methylprednisolone 40 MG ONCE ONE 05/31 1915 DC 05/31 IV 05/31 1915 192 Metoprolol Tartrate 100 MG BID 05/30 1000 AC 06/01 PO 0951 Multivitamins 1 TAB DAILY 05/29 1000 AC 06/01 PO 0952 Pantoprazole Sodium 40 MG DAILY 05/20 0030 AC 06/01 IV 1026 Polyethylene Glycol 17 GM DAILY 05/23 1000 AC 05/29 PO 0936 Potassium Chloride 40 MEQ ONCE ONE 06/01 0930 CAN PO 06/01 0931 Potassium Chloride 60 MEQ ONCE ONE 06/01 0930 DC 06/01 PO 06/01 0931 0950 Potassium Chloride 10 MEQ Q1H 06/01 0915 DC IV 06/01 1016 Potassium Chloride 40 MEQ ONCE ONE 06/01 0500 DC 06/01 PO 06/01 0501 0533 Potassium Chloride 40 MEQ ONCE ONE 05/31 2230 DC 05/31 PO 05/31 223 2240 Prednisone 70 MG DAILY 05/31 1000 AC 06/01 PO 0951 Zinc Sulfate 220 MG DAILY 05/29 1000 AC 06/01 PO 0951 Antibiotics Antibiotic: cefazolin Day #: 8 Impression/Plan Impression/Problem List Impression: 86 year old woman with past medical history of hypertension, hyperlipidemia, NV s/p PCI with stent, diabetes mellitus, and restless leg syndrome, history of atrial fibrillation with anticoagulation on hold due to severe thrombocytopenia was sent in from extended care facility for hypoxia, leukocytosis and productive cough. She was admitted on telemetry floor and transfered to ICU after patient desaturated became unresponsive. Assessment and Plan: Acute hypoxic respiratory failure likely secondary to HCAP: * Her white count has normalized and she's been afebrile. Her sputum culture is growing MSSA from May 20 and we were covering her with cefazolin. Respite are cultures from start growing Pseudomonas and we will change antibiotics to Zosyn and we will add vancomycin if she would spike fever again while on Zosyn. Screening for MRSA was sent * Reintubated again on 05/28. * ID recs appreciated. * Continue mucomist BID nebs and aggressive pulmonary toilet. * Will continue diuresis with IV Lasix 40mg BID. Atrial Fibrilliation with Hypotension: * Will continue metoprolol 100mg BID. * Continue oral Amiodarone at 200mg TID. * Added Cardizem 30mg q6 * Continue Elliquis 2.5mg BID. * Echo - Normal left ventricular ejection fraction visually estimated at > 60% . Immune Thrombocytopenia: * Her platelets have shown a slight decline today down to 138 * Continue Prednisone to 70mg per hematology as her Plt >150K * Daily CBC * s/p 1 unit transfusion of platelets 05/22. 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 * No need to further follow DIC panel. GARCÍA on CKD: /resolved * Cr 1.1 today. * Was likely contrast induced nephropathy initially. Unclear about current rise in Cr. * Nephro recs appreciated. * Strict I&Os. Diabetes Mellitus: * Contineu tube feeds with Glucerna 1.2. Will increase volume of flush to correct hypernatremia. * Levemir 8mg BID * Insulin SS. Adjusted per Endo's recommendations. Lower Extremity Skin Changes: * Was evaluated by vascular surgery. Recommend no surgical intervention at this time. * Ulcer on left foot base. Wound care notes appreciated. History of restless leg syndrome: * Sinemet was recently discontinued * Lyrica on hold currently. * Lubriderm to affected skin. Drop in H&H/anemia Currently she is receiving packed red cells. We will reevaluate her CBC after transfusion and we will try to keep about 8. Problem List: 1. Sepsis 2. Pneumonia 3. A-fib Pain Ratin Tomorrow's Labs & Rationales: cbc and icu bundle Plan DVT/Prophylaxis: mechanical
--- NOTE | 2017-06-01 09:39 | PN- Pulmonary ---
Subjective HPI/Critical Care Issues: Events of last evening reviewed. Patient remained symptomatically stable and oxygenation has improved. She remains anemic. Objective Current Medications: Current Medications Sig/Ric Start time Last Medication Dose Route Stop Time Status Admin Acetaminophen 3,000 MG .STK-MED ONE 05/31 2006 DC IV 05/31 2007 Acetaminophen 650 MG Q6P PRN 05/19 0300 AC PO Acetaminophen 1,000 MG Q6P PRN 05/19 0300 AC 05/31 IV 2009 Acetylcysteine 2 ML EVERY 4 HRS/AWAKE 05/28 2000 AC 06/01 INH 0917 Albumin Human 25 GM Q8H 05/24 0822 AC 06/01 IV 0007 Albuterol Sulfate 3 ML EVERY 4 HRS/AWAKE 05/30 0800 AC 06/01 INH 0916 Amiodarone HCl 200 MG Q8 05/30 1400 AC 06/01 PO 0533 Apixaban 2.5 MG BID 05/28 2200 AC 05/31 PO 2128 Artificial Tears 2 GTT 4 TIMES/DAY PRN 05/30 0745 AC OPH Ascorbic Acid 500 MG DAILY 05/29 1000 AC 05/31 PO 0946 Cefazolin Sodium 1,000 MG IQ8 05/27 1600 AC 06/01 IV 0007 Diltiazem HCl 30 MG Q6 05/31 1200 AC 06/01 PO 0533 Diphenhydramine HCl 50 MG ONCE ONE 05/31 1915 DC 05/31 IV 05/31 1916 1927 Docusate Sodium 100 MG DAILY AC 05/23 0820 AC 05/29 PO 0541 Furosemide 20 MG ONCE ONE 06/01 0715 DC IV 06/01 0716 Furosemide 20 MG ONCE ONE 06/01 0045 DC 06/01 IV 06/01 0046 0055 Furosemide 40 MG 7:30 AM, & 4:30 PM 05/30 1630 AC 06/01 IV 0644 Glycerin 2 SPRAY Q2P PRN 05/27 0800 AC PO Glycerin/Mineral Oil 1 PEDRITO TID PRN 05/24 1100 AC TOP Insulin Aspart 0 Q4H 05/21 1800 AC 06/01 SC 0532 Insulin Detemir 10 UNITS BID 05/31 2200 AC 05/31 SC 2128 Insulin Detemir 8 UNITS BID 05/30 1000 DC 05/31 SC 1010 Magnesium Oxide 400 MG ONE ONE 06/01 0930 DC PO 06/01 0931 Magnesium Sulfate 1 GM ONCE ONE 06/01 0915 CAN Dextrose/Water 100 ML IV 06/01 1314 Methylprednisolone 40 MG ONCE ONE 05/31 1915 DC 05/31 IV 05/31 191 1927 Metoprolol Tartrate 100 MG BID 05/30 1000 AC 05/31 PO 2129 Multivitamins 1 TAB DAILY 05/29 1000 AC 05/31 PO 0946 Pantoprazole Sodium 40 MG DAILY 05/20 0030 AC 05/31 IV 0946 Polyethylene Glycol 17 GM DAILY 05/23 1000 AC 05/29 PO 0936 Potassium Chloride 40 MEQ ONCE ONE 06/01 0930 CAN PO 06/01 0931 Potassium Chloride 60 MEQ ONCE ONE 06/01 0930 DC PO 06/01 0931 Potassium Chloride 10 MEQ Q1H 06/01 0915 DC IV 06/01 1016 Potassium Chloride 40 MEQ ONCE ONE 06/01 0500 DC 06/01 PO 06/01 0501 0533 Potassium Chloride 40 MEQ ONCE ONE 05/31 2230 DC 05/31 PO 05/31 2231 2240 Prednisone 70 MG DAILY 05/31 1000 AC 05/31 PO 0946 Zinc Sulfate 220 MG DAILY 05/29 1000 AC 05/31 PO 0946 Vital Signs & I&O Last 24 Hrs of Vitals and I&O: Vital Signs Date Time Temp Pulse Resp B/P B/P Pulse O2 O2 Flow FiO2 Mean Ox Delivery Rate 06/01 0920 40 06/01 0800 99.4 117 23 132/66 98 Ventilator 40% 06/01 0606 40 06/01 0533 122 110/69 06/01 0533 109 110/69 06/01 0400 96 Ventilator 40% 06/01 0327 40 06/01 0100 45 06/01 0000 96 Ventilator 45% 05/31 2300 100.2 106 18 110/72 96 Ventilator 45% 05/31 2241 103 117/57 05/31 2220 45 05/315 100.5 05/31 2128 131 147/80 05/31 2128 132 147/80 05/31 2009 101.4 05/31 1999 96 Ventilator 50% 05/31 1900 50 05/31 1756 133 05/31 1650 35 05/31 1600 98.5 110 23 112/54 95 Ventilator 35% 05/31 1600 95 Ventilator 35% 05/31 1500 35 05/31 1416 123 05/31 1200 94 Ventilator 35% 05/31 1200 98.6 115 19 130/80 94 Ventilator 35% 05/31 1152 117 146/102 05/31 0946 135 157/94 Intake & Output 06/01 1600 06/01 0800 06/01 0000 Intake Total 1292 1339 Output Total 624 1225 Balance 668 114 Intake, IV 120 443 Intake, Oral 0 0 Intake, Tube 492 456 Feeding Intake, Tube 680 440 Irrigant Number 0 0 Bowel Movements Output, Urine 624 1225 Patient 284 lb Weight Weight Bed scale Measurement Method Oxygen saturation 98% FiO2 0.4 exam for chest shows occasional rhonchi cardiac exam shows normal S1 and S2 with a regular rhythm abdomen is soft chest x-ray may show increased density at the left base Impression/Plan Impression/Plan Impression/Plan: Patient remains intubated hemodynamically stable. Source of blood loss is uncertain. CPAP trials at this point unrealistic. Recommendations: Taper FiO2 with improved saturations. Assess stool for occult blood. If transfusion reaction workup was negative would transfuse 1 unit packed cells with worsening anemia. Fully reculture. Hold CPAP weaning
--- NOTE | 2017-06-01 11:04 | PN- Infect Dx ---
Subjective Subjective: Febrile past 24 h; spiked fever last evening T max 101.5F. Remains intubated. Tejeda resp secretions. Faust patent. Review of Systems Comments: 12 points reviewed as noted, otherwise negative. Objective Last 24 Hrs of Vital Signs/I&O Vital Signs Date Time Temp Pulse Resp B/P B/P Pulse O2 O2 Flow FiO2 Mean Ox Delivery Rate 06/01 0951 108 06/01 0920 40 06/01 0800 98 Ventilator 40% 06/01 0800 99.4 117 23 132/66 98 Ventilator 40% 06/01 0606 40 06/01 0533 122 110/69 06/01 0533 109 110/69 06/01 0400 96 Ventilator 40% 06/01 0327 40 06/01 0100 45 06/01 0000 96 Ventilator 45% 05/31 2300 100.2 106 18 110/72 96 Ventilator 45% 05/31 2241 103 117/57 05/31 2220 45 05/31 2135 100.5 05/31 2129 131 147/80 05/31 2129 132 147/80 05/31 2009 101.4 05/31 2000 96 Ventilator 50% 05/31 1900 50 05/31 1756 133 05/31 1650 35 05/31 1600 98.5 110 23 112/54 95 Ventilator 35% 05/31 1600 95 Ventilator 35% 05/31 1500 35 05/31 1416 123 05/31 1200 94 Ventilator 35% 05/31 1200 98.6 115 19 130/80 94 Ventilator 35% 05/31 1152 117 146/102 Intake & Output 06/01 1600 06/01 0800 06/01 0000 Intake Total 1292 1339 Output Total 624 1225 Balance 668 114 Intake, IV 120 443 Intake, Oral 0 0 Intake, Tube 492 456 Feeding Intake, Tube 680 440 Irrigant Number 0 0 Bowel Movements Output, Urine 624 1225 Patient 284 lb Weight Weight Bed scale Measurement Method Physical Exam Other Physical Findings: She is awake and alert on the ventilator in no acute distress HEENT AT, ETT/OG tube in place Lungs bilateral rhonchi, few wheezes, BS diminished base Heart irregular rhythm Abdomen is obese, soft, nontender with positive bowel sounds Extremities chronic venous stasis changes both lower extremities; PICC in the right upper extremity with no inflammation at the site Faust catheter remains in place Results Last 24 Hours of Lab Results: Laboratory Tests 06/01 06/01 0625 0408 Blood Gas pH (7.35 - 7.45 PH) 7.49 H pCO2 (35 - 45 TORR) 32 L pO2 (80 - 100 TORR) 88 HCO3 (21 - 28 MEQ/L) 24 ABG O2 Sat (Measured) (>96.0 %) 97.0 P-50 (Temp Corrected) N Carboxyhemoglobin (1.5 - 5.0 %) 1.9 O2 Concentration % .40 Respiration Rate (BPM) 12 O2 Delivery Method VENT Vent Mode A/C Expiratory Pressure (CMH2O/P) 5 Tidal Volume (CC) 500 Chemistry Sodium (137 - 145 mmol/L) 146 H Potassium (3.5 - 5.1 mmol/L) 3.8 Chloride (98 - 107 mmol/L) 104 Carbon Dioxide (22 - 30 mmol/L) 27 Anion Gap (5 - 16) 15 BUN (7 - 17 mg/dL) 56 H Creatinine (0.5 - 1.0 mg/dL) 1.1 H Estimated GFR (>60 ml/min) 47 L Glucose (65 - 99 mg/dL) 190 H Calcium (8.4 - 10.2 mg/dL) 8.5 Phosphorus (2.5 - 4.5 mg/dL) 2.5 Magnesium (1.6 - 2.3 mg/dL) 1.8 Total Bilirubin (0.2 - 1.3 mg/dL) 0.6 AST (14 - 36 U/L) 23 ALT (9 - 52 U/L) 28 Albumin (3.5 - 5.0 g/dL) 3.3 L Hematology CBC w Diff MAN DIFF ORDERED WBC (4.8 - 10.8 /CUMM) 8.5 RBC (4.20 - 5.40 /CUMM) 2.40 L Hgb (12.0 - 16.0 G/DL) 7.1 *L Hct (37 - 47 %) 21.9 L MCV (81.0 - 99.0 FL) 91.4 MCH (27.0 - 31.0 PG) 29.7 MCHC (33.0 - 37.0 G/DL) 32.5 L RDW (11.5 - 14.5 %) 21.4 H Plt Count (130 - 400 /CUMM) 138 MPV (7.4 - 10.4 FL) 10.4 Gran % (42.2 - 75.2 %) 97.0 H Lymphocytes % (20.5 - 51.1 %) 2.5 L Monocytes % (1.7 - 9.3 %) 0.5 L Eosinophils % (0 - 5 %) 0 Basophils % (0.0 - 2.0 %) 0 Absolute Granulocytes (1.4 - 6.5 /CUMM) 8.3 H Absolute Lymphocytes (1.2 - 3.4 /CUMM) 0.2 L Absolute Monocytes (0.10 - 0.60 /CUMM) 0 L Absolute Eosinophils (0.0 - 0.7 /CUMM) 0 Absolute Basophils (0.0 - 0.2 /CUMM) 0 Platelet Estimate (ADEQUATE) DECREASED Hypochromic-Microcytic 1+ Poikilocytosis 1+ Anisocytosis 1+ Ovalocytes 1+ Miscellaneous Phlebotomy Draw Site RIGHT RADIAL 05/31 05/31 7691 1446 Chemistry Sodium (137 - 145 mmol/L) 148 H Potassium (3.5 - 5.1 mmol/L) 3.4 L Chloride (98 - 107 mmol/L) 104 Carbon Dioxide (22 - 30 mmol/L) 24 Anion Gap (5 - 16) 20 H BUN (7 - 17 mg/dL) 55 H Creatinine (0.5 - 1.0 mg/dL) 1.1 H Estimated GFR (>60 ml/min) 47 L Glucose (65 - 99 mg/dL) 209 H Calcium (8.4 - 10.2 mg/dL) 8.8 Phosphorus (2.5 - 4.5 mg/dL) 2.4 L Magnesium (1.6 - 2.3 mg/dL) 1.8 Total Bilirubin (0.2 - 1.3 mg/dL) 0.6 AST (14 - 36 U/L) 27 ALT (9 - 52 U/L) 33 Albumin (3.5 - 5.0 g/dL) 3.7 Hematology CBC w Diff NO MAN DIFF REQ MAN DIFF ORDERED WBC (4.8 - 10.8 /CUMM) 10.1 5.7 RBC (4.20 - 5.40 /CUMM) 2.74 L 2.38 L Hgb (12.0 - 16.0 G/DL) 8.1 L 7.1 *L Hct (37 - 47 %) 25.1 L 21.8 L MCV (81.0 - 99.0 FL) 91.4 91.4 MCH (27.0 - 31.0 PG) 29.5 29.6 MCHC (33.0 - 37.0 G/DL) 32.3 L 32.4 L RDW (11.5 - 14.5 %) 21.2 H 21.9 H Plt Count (130 - 400 /CUMM) 157 150 MPV (7.4 - 10.4 FL) 9.8 10.4 Gran % (42.2 - 75.2 %) 97.6 H 97.9 H Lymphocytes % (20.5 - 51.1 %) 1.7 L 1.4 L Monocytes % (1.7 - 9.3 %) 0.7 L 0.5 L Eosinophils % (0 - 5 %) 0 0.2 Basophils % (0.0 - 2.0 %) 0 0 Absolute Granulocytes (1.4 - 6.5 /CUMM) 9.9 H 5.6 Segmented Neutrophils (42.2 - 75.2 %) 96 H Band Neutrophils (0.0 - 5.0 %) 2 Absolute Lymphocytes (1.2 - 3.4 /CUMM) 0.2 L 0.1 L Lymphocytes (20.5 - 51.1 %) 1 L Absolute Monocytes (0.10 - 0.60 /CUMM) 0.1 0 L Absolute Eosinophils (0.0 - 0.7 /CUMM) 0 0 Absolute Basophils (0.0 - 0.2 /CUMM) 0 0 Metamyelocytes (0.0 - 1.0 %) 1 Platelet Estimate (ADEQUATE) ADEQUATE Polychromasia 1+ Hypochromic-Microcytic 1+ Anisocytosis 2+ Macrocytic Cells 1+ 01/27 1400 Blood Gas pH (7.35 - 7.45 PH) 7.52 H pCO2 (35 - 45 TORR) 30 L pO2 (80 - 100 TORR) 65 L HCO3 (21 - 28 MEQ/L) 23 ABG O2 Sat (Measured) (>96.0 %) 91.0 L Carboxyhemoglobin (1.5 - 5.0 %) 0.9 L O2 Concentration % 35 Respiration Rate (BPM) 12 O2 Delivery Method VENT Vent Mode AC Expiratory Pressure (CMH2O/P) 5 Tidal Volume (CC) 500 Miscellaneous Phlebotomy Draw Site LEFT RADIAL Last 24 Hours of Silvano Results: atient : SOLEDAD WILLSON Acct: [id number] DR: Jordi Pyle MD Birthdate: [birth year] Age/Sex: 86/F Unit: [id number] Loc: [facility] 107- 01 Status : ADM IN SPEC #: [id number] MARIBEL: 05/31/17 STATUS: RES RECD: 05/31/[address]: Jaron RAMOS,Denisse SOURCE: LOWER RESP ENTR: 05/30/[address]: Kranthi RAMOS,July SPDESC: SPUTUM Endy RAMOS, Jordi Moses MD ORDERED: LOWER RESPIRATO Procedure Result > GRAM STAIN Final 05/31/17 WHITE BLOOD CELLS MANY SQUAMOUS CELLS RARE GRAM NEGATIVE RODS MANY GRAM NEGATIVE COCCI RARE > LOWER RESPIRATORY CULTURE Preliminary 06/01/17 Recent Imaging Studies: CXR today IMPRESSION: Limited exam. Satisfactory position of ET tube and right upper extremity PICC line. Nasogastric tube tip is again not seen. Stable enlargement of the cardiac silhouette. Stable bilateral perihilar airspace disease. Differential would include pulmonary edema and pneumonia. There is a loss of the left hemidiaphragm questionable for denser left lower lobe atelectasis/consolidation. This appears unchanged. DICTATED BY: Sb RAMOS,Clari Dockery DATE/TIME DICTATED:06/01/17821 GIFT OFFICER:SHARIF DATE/TIME TRANSCRIBED:06/01/17821 Assessment/Plan Impression: 86-year-old woman with past medical history of hypertension, hyperlipidemia, [place] s/p PCI with stenting, diabetes mellitus, and restless leg syndrome, history of atrial fibrillation admitted on 05/19/17. Fever/worsening LLL infiltrate/Aspiration pneumonia; treated currently w/ Cefazolin Day 14/14 of treatment for MSSA pneumonia. Repeat sputum culture + Ps. aeruginosa (sensitivity pending) Worsening anemia; WBC wnl (although L shift present) Suggestion: 1. Trend CBC. 2. Pulmonary toilet. 3. D/C Cefazolin. Start Zosyn 4.5 gm iv q 8 h; if persistent fever add Vancomycin 1.5 gm x1; obtain MRSA nasal surv cx. Case d/w team.
--- NOTE | 2017-06-01 11:21 | PN- Diabetes ---
Assessment/Plan Assessment: Patient is now reintubated. She is on a respirator and sedated. Her steroid dose is prednisone 70 mg once a day. However, she received additional Solumedrol 40 mg x 1 on 05/31/2017. Sputum culture is positive for pseudomonas. T max was 101.4 last night. She is presently on 10 units of Levemir twice a day. Her tube feedingsis at 65 mL/h. She is also on every 4 hour NovoLog coverage. Her FSGs were 225, 211, 221 and 263. The patient's serum sodium is 146 this morning which is improving. She is receiving free water flushes via feeding tube. Plan: continue the current insulin regimen for now; monitor FSGs and electrolytes; will follow. Subjective Subjective: patient is intubated; but she is awake. Objective Last 24 Hrs of Vital Signs/I&O Vital Signs Date Time Temp Pulse Resp B/P B/P Pulse O2 O2 Flow FiO2 Mean Ox Delivery Rate 06/01 0951 108 06/01 0920 40 06/01 0800 98 Ventilator 40% 06/01 0800 99.4 117 23 132/66 98 Ventilator 40% 06/01 0606 40 06/01 0533 122 110/69 06/01 0533 109 110/69 06/01 0400 96 Ventilator 40% 06/01 0327 40 06/01 0100 45 06/01 0000 96 Ventilator 45% 05/31 2300 100.2 106 18 110/72 96 Ventilator 45% 05/31 2241 103 117/57 05/31 2220 45 05/31 2135 100.5 05/319 131 147/80 05/31 2129 132 147/80 05/31 2009 101.4 05/31 2000 96 Ventilator 50% 05/31 1900 50 05/31 1756 133 05/31 1650 35 05/31 1600 98.5 110 23 112/54 95 Ventilator 35% 05/31 1600 95 Ventilator 35% 05/31 1500 35 05/31 1416 123 05/31 1200 94 Ventilator 35% 05/31 1200 98.6 115 19 130/80 94 Ventilator 35% 05/31 1152 117 146/102 Intake & Output 06/01 1600 06/01 0800 06/01 0000 Intake Total 1292 1339 Output Total 624 1225 Balance 668 114 Intake, IV 120 443 Intake, Oral 0 0 Intake, Tube 492 456 Feeding Intake, Tube 680 440 Irrigant Number 0 0 Bowel Movements Output, Urine 624 1225 Patient 284 lb Weight Weight Bed scale Measurement Method Findings Pertinent Lab/Silvano Results: Laboratory Tests 06/01 06/01 0625 0408 Blood Gas pH (7.35 - 7.45 PH) 7.49 H pCO2 (35 - 45 TORR) 32 L pO2 (80 - 100 TORR) 88 HCO3 (21 - 28 MEQ/L) 24 ABG O2 Sat (Measured) (>96.0 %) 97.0 P-50 (Temp Corrected) N Carboxyhemoglobin (1.5 - 5.0 %) 1.9 O2 Concentration % .40 Respiration Rate (BPM) 12 O2 Delivery Method VENT Vent Mode A/C Expiratory Pressure (CMH2O/P) 5 Tidal Volume (CC) 500 Chemistry Sodium (137 - 145 mmol/L) 146 H Potassium (3.5 - 5.1 mmol/L) 3.8 Chloride (98 - 107 mmol/L) 104 Carbon Dioxide (22 - 30 mmol/L) 27 Anion Gap (5 - 16) 15 BUN (7 - 17 mg/dL) 56 H Creatinine (0.5 - 1.0 mg/dL) 1.1 H Estimated GFR (>60 ml/min) 47 L Glucose (65 - 99 mg/dL) 190 H Calcium (8.4 - 10.2 mg/dL) 8.5 Phosphorus (2.5 - 4.5 mg/dL) 2.5 Magnesium (1.6 - 2.3 mg/dL) 1.8 Total Bilirubin (0.2 - 1.3 mg/dL) 0.6 AST (14 - 36 U/L) 23 ALT (9 - 52 U/L) 28 Albumin (3.5 - 5.0 g/dL) 3.3 L Hematology CBC w Diff MAN DIFF ORDERED WBC (4.8 - 10.8 /CUMM) 8.5 RBC (4.20 - 5.40 /CUMM) 2.40 L Hgb (12.0 - 16.0 G/DL) 7.1 *L Hct (37 - 47 %) 21.9 L MCV (81.0 - 99.0 FL) 91.4 MCH (27.0 - 31.0 PG) 29.7 MCHC (33.0 - 37.0 G/DL) 32.5 L RDW (11.5 - 14.5 %) 21.4 H Plt Count (130 - 400 /CUMM) 138 MPV (7.4 - 10.4 FL) 10.4 Gran % (42.2 - 75.2 %) 97.0 H Lymphocytes % (20.5 - 51.1 %) 2.5 L Monocytes % (1.7 - 9.3 %) 0.5 L Eosinophils % (0 - 5 %) 0 Basophils % (0.0 - 2.0 %) 0 Absolute Granulocytes (1.4 - 6.5 /CUMM) 8.3 H Absolute Lymphocytes (1.2 - 3.4 /CUMM) 0.2 L Absolute Monocytes (0.10 - 0.60 /CUMM) 0 L Absolute Eosinophils (0.0 - 0.7 /CUMM) 0 Absolute Basophils (0.0 - 0.2 /CUMM) 0 Platelet Estimate (ADEQUATE) DECREASED Hypochromic-Microcytic 1+ Poikilocytosis 1+ Anisocytosis 1+ Ovalocytes 1+ Miscellaneous Phlebotomy Draw Site RIGHT RADIAL 05/31 05/31 9672 1446 Chemistry Sodium (137 - 145 mmol/L) 148 H Potassium (3.5 - 5.1 mmol/L) 3.4 L Chloride (98 - 107 mmol/L) 104 Carbon Dioxide (22 - 30 mmol/L) 24 Anion Gap (5 - 16) 20 H BUN (7 - 17 mg/dL) 55 H Creatinine (0.5 - 1.0 mg/dL) 1.1 H Estimated GFR (>60 ml/min) 47 L Glucose (65 - 99 mg/dL) 209 H Calcium (8.4 - 10.2 mg/dL) 8.8 Phosphorus (2.5 - 4.5 mg/dL) 2.4 L Magnesium (1.6 - 2.3 mg/dL) 1.8 Total Bilirubin (0.2 - 1.3 mg/dL) 0.6 AST (14 - 36 U/L) 27 ALT (9 - 52 U/L) 33 Albumin (3.5 - 5.0 g/dL) 3.7 Hematology CBC w Diff NO MAN DIFF REQ MAN DIFF ORDERED WBC (4.8 - 10.8 /CUMM) 10.1 5.7 RBC (4.20 - 5.40 /CUMM) 2.74 L 2.38 L Hgb (12.0 - 16.0 G/DL) 8.1 L 7.1 *L Hct (37 - 47 %) 25.1 L 21.8 L MCV (81.0 - 99.0 FL) 91.4 91.4 MCH (27.0 - 31.0 PG) 29.5 29.6 MCHC (33.0 - 37.0 G/DL) 32.3 L 32.4 L RDW (11.5 - 14.5 %) 21.2 H 21.9 H Plt Count (130 - 400 /CUMM) 157 150 MPV (7.4 - 10.4 FL) 9.8 10.4 Gran % (42.2 - 75.2 %) 97.6 H 97.9 H Lymphocytes % (20.5 - 51.1 %) 1.7 L 1.4 L Monocytes % (1.7 - 9.3 %) 0.7 L 0.5 L Eosinophils % (0 - 5 %) 0 0.2 Basophils % (0.0 - 2.0 %) 0 0 Absolute Granulocytes (1.4 - 6.5 /CUMM) 9.9 H 5.6 Segmented Neutrophils (42.2 - 75.2 %) 96 H Band Neutrophils (0.0 - 5.0 %) 2 Absolute Lymphocytes (1.2 - 3.4 /CUMM) 0.2 L 0.1 L Lymphocytes (20.5 - 51.1 %) 1 L Absolute Monocytes (0.10 - 0.60 /CUMM) 0.1 0 L Absolute Eosinophils (0.0 - 0.7 /CUMM) 0 0 Absolute Basophils (0.0 - 0.2 /CUMM) 0 0 Metamyelocytes (0.0 - 1.0 %) 1 Platelet Estimate (ADEQUATE) ADEQUATE Polychromasia 1+ Hypochromic-Microcytic 1+ Anisocytosis 2+ Macrocytic Cells 1+ 01/27 1400 Blood Gas pH (7.35 - 7.45 PH) 7.52 H pCO2 (35 - 45 TORR) 30 L pO2 (80 - 100 TORR) 65 L HCO3 (21 - 28 MEQ/L) 23 ABG O2 Sat (Measured) (>96.0 %) 91.0 L Carboxyhemoglobin (1.5 - 5.0 %) 0.9 L O2 Concentration % 35 Respiration Rate (BPM) 12 O2 Delivery Method VENT Vent Mode AC Expiratory Pressure (CMH2O/P) 5 Tidal Volume (CC) 500 Miscellaneous Phlebotomy Draw Site LEFT RADIAL
[2017-06-01 12:00] VITALS: BP 142/80
[2017-06-01 15:44] LABS: ABSOLUTE BASOPHIL COUNT 0 /CUMM (0.0-0.2); ABSOLUTE EOSINOPHIL COUNT 0 /CUMM (0.0-0.7); ABSOLUTE GRANULOCYTE CT 5.8 /CUMM (1.4-6.5); ABSOLUTE LYMPH COUNT 0.2 /CUMM (1.2-3.4); ABSOLUTE MONOCYTE COUNT 0 /CUMM (0.10-0.60); BASOPHIL % 0 % (0.0-2.0); EOSINOPHIL % 0 % (0-5); HEMATOCRIT 26.4 % (37-47); MEAN CORPUSCULAR HGB 29.4 PG (27.0-31.0); MEAN CORPUSCULAR HGB CONC 32.2 G/DL (33.0-37.0); MEAN CORPUSCULAR VOLUME 91.3 FL (81.0-99.0); MEAN PLATELET VOLUME 10.5 FL (7.4-10.4); PLATELET COUNT 126 /CUMM (130-400); RBC DISTRIBUTION WIDTH 20.1 % (11.5-14.5); RED BLOOD CELL CT 2.89 /CUMM (4.20-5.40)
[2017-06-01 15:45] LABS: GRANULOCYTE % 96.1 % (42.2-75.2)
[2017-06-01 16:00] VITALS: BP 138/70
--- NOTE | 2017-06-01 18:58 | PN- Cardiology ---
Subjective Subjective: Remains intubated, events noted, spiked fever last night ?transfusion reaction Objective Vital Signs and I&Os Vital Signs Date Time Temp Pulse Resp B/P B/P Pulse O2 O2 Flow FiO2 Mean Ox Delivery Rate 06/01 1751 123 06/01 1700 40 06/01 1600 96 Ventilator 40% 06/01 1600 98.8 101 19 138/70 96 Ventilator 40% 06/01 1440 40 06/01 1300 107 128/70 06/01 1200 99 Ventilator 40% 06/01 1200 98.8 120 20 142/80 98 Ventilator 40% 06/01 0951 108 06/01 0920 40 06/01 0800 98 Ventilator 40% 06/01 0800 99.4 117 23 132/66 98 Ventilator 40% 06/01 0606 40 06/01 0533 122 110/69 06/01 0533 109 110/69 06/01 0400 96 Ventilator 40% 06/01 0327 40 06/01 0100 45 06/01 0000 96 Ventilator 45% 05/31 2300 100.2 106 18 110/72 96 Ventilator 45% 05/31 2241 103 117/57 05/31 2220 45 05/31 2135 100.5 05/31 2128 131 147/80 05/31 2129 132 147/80 05/31 2009 101.4 05/31 1999 96 Ventilator 50% 05/31 1900 50 Intake & Output 06/01 1600 06/01 0800 06/01 0000 05/31 1600 05/31 0800 05/31 0000 Intake Total 1368 1292 1339 898 940 940 Output Total 6346 992 7562 4518 695 5210 Balance 168 668 114 -652 240 -184 Intake, IV 240 120 443 150 100 134 Intake, Oral 0 0 0 0 Intake, Other 345 Intake, Tube 428 492 456 403 480 436 Feeding Intake, Tube 700 680 440 360 370 Irrigant Number 1 0 0 1 1 1 Bowel Movements Output, Urine 6056 770 7078 3604 682 0542 Patient 284 lb 282 lb Weight Weight Bed scale Bed scale Measurement Method Physical Exam: HEENT-PERRLA Neck-JVPnl no bruits Lungs clear bilaterally Heart S1S2 irregular, no murmur Abdomen-soft, not tender, BS+, no organomegaly Extr-dermatitis, decreased edema neuro-awake, non focal Assessment/Plan Assessment/Plan 1. Acute hypoxic respiratory failure/septic shock secondary to MSSA PNA on Oxacillin Extubated 6 days ago, now reintubated, CXR unchanged, spiked fever, atb changed to Zosyn 2. atrial fibrillation, on oral cardizem, amiodarone, metoprolol, rate acceptable 3. GARCÍA-creatinine stable, sodium decreased 4.Thrombocytopenia/ITP, on steroids 5. Anemia- stable Plan: continue Lasix to 40 mg iv bid continue amiodarone, cardizem, metoprolol Continue telemetry? Yes
[2017-06-02] VITALS: BP 122/74
[2017-06-02 04:22] LABS: ABSOLUTE BASOPHIL COUNT 0 /CUMM (0.0-0.2); ABSOLUTE EOSINOPHIL COUNT 0 /CUMM (0.0-0.7); ABSOLUTE LYMPH COUNT 0.2 /CUMM (1.2-3.4); ABSOLUTE MONOCYTE COUNT 0.1 /CUMM (0.10-0.60); BASOPHIL % 0 % (0.0-2.0); EOSINOPHIL % 0 % (0-5); HEMATOCRIT 25.3 % (37-47); MEAN CORPUSCULAR HGB 29.9 PG (27.0-31.0); MEAN CORPUSCULAR HGB CONC 32.7 G/DL (33.0-37.0); MEAN CORPUSCULAR VOLUME 91.6 FL (81.0-99.0); MEAN PLATELET VOLUME 10.6 FL (7.4-10.4); PLATELET COUNT 118 /CUMM (130-400); RBC DISTRIBUTION WIDTH 19.9 % (11.5-14.5); RED BLOOD CELL CT 2.77 /CUMM (4.20-5.40); WHITE BLOOD CELL COUNT 5.2 /CUMM (4.8-10.8)
--- NOTE | 2017-06-02 07:00 | PN- Resident CRCU ---
Jaron RAMOS,[facility] 06/02/17 0659: Subjective HPI/CRCU Issues: Atrial Fibrilliation Hypotension Acute Hypoxic Respiratory Failure 24 Hour Events: No acute events overnight. Antibiotics were changed to Zosyn yesterday. Her sputum culture shows Pseudomonas (C&S pending). Continues to be intubated (no sedation) with FiO2 of 40%. She got a unit of pRBC on friday but appeared to have a transfusion reactions as she became tachypneic/tremulous along with diffuse wheezing on auscultation. Her Hb is 8.1 this morning. Her labs show steadily decreasing Plt count (could be likely due to her infection). No heparin flushes received via PICC line. Objective Vital Signs & I&O Last 8 Hrs of Vitals and I&O: . Exam General Appearance: alert, awake, intubated, mild distress Head: atraumatic, normal appearance Respiratory: normal breath sounds, chest non-tender, lungs clear Cardiovascular: tachycardia, irregularly irregular Gastrointestinal: soft, non-tender Extremities: trace bilateral lower extremity edema Cranial Nerves: normal hearing Skin: small ulcer on plantar aspect of left&right foot Skin Temp/Moisture Exam: Warm/Dry Sepsis Skin Exam (color): Normal for Ethnicity Weaning Parameters NIF: 19 Minute Volume: 9.18 Resp rate: 33 Vt: 275 Heart Rate: 132 Weaning Schedule Start Time: 1905 Minute Volume: 11.1 Resp Rate: 30 Vt: 365 Heart Rate: 119 End Time: 1930 Minute Volume: 14.5 Resp Rate: 45 Vt: 285 Heart Rate: 153 Current Medications: Current Medications Sig/Ric Start time Last Medication Dose Route Stop Time Status Admin Acetaminophen 650 MG Q6P PRN 05/19 0300 AC PO Acetaminophen 1,000 MG Q6P PRN 05/19 0300 AC 05/31 IV 2009 Acetylcysteine 2 ML EVERY 4 HRS/AWAKE 05/28 1999 AC 06/02 INH 0837 Albumin Human 25 GM Q8H 05/24 08 AC 06/02 IV 0734 Albuterol Sulfate 3 ML EVERY 4 HRS/AWAKE 05/30 0800 AC 06/02 INH 0836 Amiodarone HCl 200 MG BID 06/02 2199 AC PO Amiodarone HCl 200 MG Q8 05/30 1400 DC 06/02 PO 0540 Apixaban 2.5 MG BID 05/28 2199 AC 06/02 PO 0914 Artificial Tears 2 GTT 4 TIMES/DAY PRN 05/30 0745 AC OPH Ascorbic Acid 500 MG DAILY 05/29 1000 AC 06/02 PO 0915 Cefazolin Sodium 1,000 MG IQ8 05/27 1600 DC 06/01 IV 1026 Diltiazem HCl 60 MG Q6 06/02 1200 AC PO Diltiazem HCl 30 MG Q6 05/31 1200 DC 06/02 PO 0540 Docusate Sodium 100 MG DAILY AC 05/23 0820 AC 05/29 PO 0541 Furosemide 40 MG DAILY 06/03 1000 AC IV Furosemide 40 MG 7:30 AM, & 4:30 PM 05/30 1630 DC 06/02 IV 0638 Glycerin 2 SPRAY Q2P PRN 05/27 0800 AC PO Glycerin/Mineral Oil 1 PEDRITO TID PRN 05/24 1100 AC TOP Insulin Aspart 0 Q4H 05/21 1800 AC 06/02 SC 0540 Insulin Detemir 10 UNITS BID 05/31 2200 AC 06/02 SC 0915 Magnesium Oxide 400 MG ONE ONE 06/01 0930 DC 06/01 PO 06/01 0931 0950 Magnesium Sulfate 1 GM ONCE ONE 06/02 0700 AC 06/02 Dextrose/Water 100 ML IV 06/02 1059 0812 Magnesium Sulfate 1 GM ONCE ONE 06/01 0915 CAN Dextrose/Water 100 ML IV 06/01 1314 Metoprolol Tartrate 100 MG BID 05/30 1000 AC 06/02 PO 0914 Multivitamins 1 TAB DAILY 05/29 1000 AC 06/02 PO 0915 Non-Formulary 0 SEE ADMIN CRITERIA 06/01 1130 CAN Medication ANY Pantoprazole Sodium 40 MG DAILY 05/20 0030 AC 06/02 IV 0915 Piperacillin Sod/ 4.5 GM Q8H 06/01 1200 AC 06/02 Tazobactam Sod IV 0352 Sodium Chloride 100 ML Polyethylene Glycol 17 GM DAILY 05/23 1000 AC 06/02 PO 0915 Potassium Chloride 40 MEQ ONCE ONE 06/01 0930 CAN PO 06/01 0931 Potassium Chloride 60 MEQ ONCE ONE 06/01 0930 DC 06/01 PO 06/01 0931 0950 Potassium Chloride 10 MEQ Q1H 06/01 0915 DC IV 06/01 1016 Prednisone 80 MG DAILY 06/02 1000 AC 06/02 PO 0915 Prednisone 70 MG DAILY 05/31 1000 DC 06/01 PO 0951 Zinc Sulfate 220 MG DAILY 05/29 1000 AC 06/02 PO 0915 Impression/Plan Impression/Problem List Impression: 86 year old woman with past medical history of hypertension, hyperlipidemia, [place] s/p PCI with stent, diabetes mellitus, and restless leg syndrome, history of atrial fibrillation with anticoagulation on hold due to severe thrombocytopenia was sent in from extended care facility for hypoxia, leukocytosis and productive cough. She was admitted on telemetry floor and transfered to ICU after patient desaturated became unresponsive. Assessment and Plan: Acute hypoxic respiratory failure likely secondary to HCAP: * Her white count has normalized and she's been afebrile. Her repeat sputum culture is growing Pseudomonas. * Her CXR today shows bibasilar opacities, left greater than right ?pneumonia. * Antibiotics switched to Zosyn 4.5gm IV q8. If she has persistent fever, will consider adding Vancomycin. * Reintubated again on 05/28. * ID recs appreciated. * Continue mucomist BID nebs and aggressive pulmonary toilet. * Will continue diuresis with IV Lasix 40mg daily. She has a rising BUN, concerning for pre-renal azotemia. * Will discuss goals of care with family today. Atrial Fibrilliation with Hypotension: * Will continue metoprolol 100mg BID. * Decrease oral Amiodarone at 200mg BID. * Increase Cardizem 60mg q6 * Continue Elliquis 2.5mg BID. * Echo - Normal left ventricular ejection fraction visually estimated at > 60% . Immune Thrombocytopenia: * Her platelets have shown a decline past few days. Could be likely due to her reinfection. * Increase Prednisone again to 80mg. * Daily CBC * s/p 1 unit transfusion of platelets 05/22. 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 * Will follow DIC panel tomorrow. GARCÍA on CKD: /resolved * Cr 1.2 today. * Was likely contrast induced nephropathy initially. * Rising BUN concerning for pre-renal azotemia or even GI bleed. She did have a drop in her H&H. * Nephro recs appreciated. * Strict I&Os. Diabetes Mellitus: * Contineu tube feeds with Glucerna 1.2. Will increase volume of flush to correct hypernatremia. * Levemir 10mg BID * Insulin SS. Adjusted per Endo's recommendations. Lower Extremity Skin Changes: * Was evaluated by vascular surgery. Recommend no surgical intervention at this time. * Small ulcer on left/right foot base. Wound care notes appreciated. History of restless leg syndrome: * Sinemet was recently discontinued * Lyrica on hold currently. * Lubriderm to affected skin. DVT Prophylaxis: ALPS and Elliquis Code: Full Problem List: 1. A-fib Pain Ratin Tomorrow's Labs & Rationales: CBC, ICU bundle, DIC panel, ABG Plan DVT/Prophylaxis: Jordi Trujillo MD 06/02/17 1120: Attending MD Review Statement Attending Sign Off Attending Cosign Statement: I have: examined this patient, reviewed avalbl EMR data, personally reviewd images, discussd w/resident/PA/CORPORATE COMMUNICATIONS INTERN, discussed mgmt plan w/ida, discussed mgmt plan w/CM, discussed mgmt plan w/pt, agreed w/resident/PA/CORPORATE COMMUNICATIONS INTERN, amended to note. Other Findings: IJordi M.D. have examined this patient, reviewed available EMR data, personally reviewed images, discussed with resident/PA/CORPORATE COMMUNICATIONS INTERN, discussed management plan with housestaff and nursing staff, discussed managment plan all of healthcare providers, discussed management plan with patient and/or family, agreed with resident/PA/CORPORATE COMMUNICATIONS INTERN. The past history and parts of the chart have been autopopulated. Impression 86 year old woman resolved septic shock a.fib RVR acute hypoxemic respiratory failure GARCÍA improved Plan -reintubated -left opacity improved, aerated, no need for bronchoscopy at this time -cpap trials -abx per ID -cardiology, ID f/u -f/u hematology recommendations, stress steroids can be tapered per heme -endocrinology appreciated -nephrology consultation appreciated -plan for goals of care discussion with family DVT prophylaxis at all times TTS 35 min
--- NOTE | 2017-06-02 07:16 | PN- Cardiology ---
Subjective Subjective: Intubated, condition unchanged Objective Vital Signs and I&Os Vital Signs Date Time Temp Pulse Resp B/P B/P Pulse O2 O2 Flow FiO2 Mean Ox Delivery Rate 06/02 0640 40 06/02 0540 130 130/74 06/02 0540 130 130/74 06/02 0400 96 Ventilator 40% 06/02 0316 40 06/02 0048 40 06/02 0000 98.6 135 22 122/74 94 Ventilator 40% 06/02 0000 94 Ventilator 40% 06/01 2359 134 140/87 06/01 2214 40 06/01 2154 144 136/86 06/01 2154 144 136/86 06/01 2000 94 Ventilator 40% 06/01 1910 40 06/01 1751 123 06/01 1700 40 06/01 1600 96 Ventilator 40% 06/01 1600 98.8 101 19 138/70 96 Ventilator 40% 06/01 1440 40 06/01 1300 107 128/70 06/01 1200 99 Ventilator 40% 06/01 1200 98.8 120 20 142/80 98 Ventilator 40% 06/01 0951 108 06/01 0920 40 06/01 0800 98 Ventilator 40% 06/01 0800 99.4 117 23 132/66 98 Ventilator 40% Intake & Output 06/02 0800 06/02 0000 06/01 1600 06/01 0800 06/01 0000 05/31 1600 Intake Total 1280 1163 1368 1292 1339 898 Output Total 850 1250 3501 670 6222 1550 Balance 430 -87 168 668 114 -652 Intake, IV 220 220 240 120 443 150 Intake, Oral 0 0 Intake, Other 345 Intake, Tube 480 458 428 492 456 403 Feeding Intake, Tube 580 485 700 680 440 Irrigant Number 1 1 1 0 0 1 Bowel Movements Output, Urine 850 1250 3822 080 8323 1550 Patient 284 lb 282 lb Weight Weight Bed scale Bed scale Measurement Method Physical Exam: HEENT-PERRLA Neck-JVP normal,no bruits Lungs-decreased BS at both bases, otherwise clear Heart-S1S2 irregular, no murmur Abdomen-soft, obese, BS+, no organomegaly Extr-dermatitis, decreased edema, diminished distal pulses Neuro-non focal Current Medications: Current Medications Sig/Ric Start time Last Medication Dose Route Stop Time Status Admin Acetaminophen 650 MG Q6P PRN 05/19 0300 AC PO Acetaminophen 1,000 MG Q6P PRN 05/19 0300 AC 05/31 IV 2010 Acetylcysteine 2 ML EVERY 4 HRS/AWAKE 05/28 2000 AC 06/01 INH 2057 Albumin Human 25 GM Q8H 05/24 0822 AC 06/02 IV 0000 Albuterol Sulfate 3 ML EVERY 4 HRS/AWAKE 05/30 0800 AC 06/01 INH 2057 Amiodarone HCl 200 MG Q8 05/30 1400 AC 06/02 PO 0540 Apixaban 2.5 MG BID 05/28 2200 AC 06/01 PO 2155 Artificial Tears 2 GTT 4 TIMES/DAY PRN 05/30 0745 AC OPH Ascorbic Acid 500 MG DAILY 05/29 1000 AC 06/01 PO 0951 Cefazolin Sodium 1,000 MG IQ8 05/27 1600 DC 06/01 IV 1026 Diltiazem HCl 30 MG Q6 05/31 1200 AC 06/02 PO 0540 Docusate Sodium 100 MG DAILY AC 05/23 0820 AC 05/29 PO 0541 Furosemide 20 MG ONCE ONE 06/01 0715 DC 06/01 IV 06/01 0716 1028 Furosemide 40 MG 7:30 AM, & 4:30 PM 05/30 1630 AC 06/02 IV 0638 Glycerin 2 SPRAY Q2P PRN 05/27 0800 AC PO Glycerin/Mineral Oil 1 PEDRITO TID PRN 05/24 1100 AC TOP Insulin Aspart 0 Q4H 05/21 1800 AC 06/02 SC 0540 Insulin Detemir 10 UNITS BID 05/31 2200 AC 06/01 SC 2154 Magnesium Oxide 400 MG ONE ONE 06/01 0930 DC 06/01 PO 06/01 0931 0950 Magnesium Sulfate 1 GM ONCE ONE 06/02 0700 AC Dextrose/Water 100 ML IV 06/02 1059 Magnesium Sulfate 1 GM ONCE ONE 06/01 0915 CAN Dextrose/Water 100 ML IV 06/01 1314 Metoprolol Tartrate 100 MG BID 05/30 1000 AC 06/01 PO 2154 Multivitamins 1 TAB DAILY 05/29 1000 AC 06/01 PO 0952 Non-Formulary 0 SEE ADMIN CRITERIA 06/01 1130 CAN Medication ANY Pantoprazole Sodium 40 MG DAILY 05/20 0030 AC 06/01 IV 1026 Piperacillin Sod/ 4.5 GM Q8H 06/01 1200 AC 06/02 Tazobactam Sod IV 0352 Sodium Chloride 100 ML Polyethylene Glycol 17 GM DAILY 05/23 1000 AC 05/29 PO 0936 Potassium Chloride 40 MEQ ONCE ONE 06/01 929 CAN PO 06/01 930 Potassium Chloride 60 MEQ ONCE ONE 06/01 929 DC 06/01 PO 06/01 930 0950 Potassium Chloride 10 MEQ Q1H 06/01 914 DC IV 06/01 1016 Prednisone 70 MG DAILY 05/31 1000 AC 06/01 PO 0951 Zinc Sulfate 220 MG DAILY 05/29 1000 AC 06/01 PO 0951 Results Last 48 Hrs of Labs/Mics: Laboratory Tests 06/02/17 0355: Anion Gap 18 H, Estimated GFR 43 L, Glucose 191 H, Calcium 9.0, Phosphorus 2.7, Magnesium 1.8, Total Bilirubin 0.7, AST 17, ALT 24, Albumin 3.8, CBC w Diff NO MAN DIFF REQ, RBC 2.77 L, MCV 91.6, MCH 29.9, MCHC 32.7 L, RDW 19.9 H, MPV 10.6 H, Gran % 95.0 H, Lymphocytes % 4.0 L, Monocytes % 1.0 L, Eosinophils % 0, Basophils % 0, Absolute Granulocytes 5.0, Absolute Lymphocytes 0.2 L, Absolute Monocytes 0.1, Absolute Eosinophils 0, Absolute Basophils 0 06/01/17 1415: CBC w Diff NO MAN DIFF REQ, RBC 2.89 L, MCV 91.3, MCH 29.4, MCHC 32.2 L, RDW 20.1 H, MPV 10.5 H, Gran % 96.1 H, Lymphocytes % 3.3 L, Monocytes % 0.6 L, Eosinophils % 0, Basophils % 0, Absolute Granulocytes 5.8, Absolute Lymphocytes 0.2 L, Absolute Monocytes 0 L, Absolute Eosinophils 0, Absolute Basophils 0 06/01/17 0625: pH 7.49 H, pCO2 32 L, pO2 88, HCO3 24, ABG O2 Sat (Measured) 97.0, P-50 (Temp Corrected) N, Carboxyhemoglobin 1.9, O2 Concentration % .40, Respiration Rate 12 , O2 Delivery Method VENT, Vent Mode A/C, Expiratory Pressure 5, Tidal Volume 500, Phlebotomy Draw Site RIGHT RADIAL 06/01/17 0408: Anion Gap 15, Estimated GFR 47 L, Glucose 190 H, Calcium 8.5, Phosphorus 2.5, Magnesium 1.8, Total Bilirubin 0.6, AST 23, ALT 28, Albumin 3.3 L, CBC w Diff MAN DIFF ORDERED, RBC 2.40 L, MCV 91.4, MCH 29.7, MCHC 32.5 L, RDW 21.4 H, MPV 10.4, Gran % 97.0 H, Lymphocytes % 2.5 L, Monocytes % 0.5 L, Eosinophils % 0, Basophils % 0, Absolute Granulocytes 8.3 H, Absolute Lymphocytes 0.2 L, Absolute Monocytes 0 L, Absolute Eosinophils 0, Absolute Basophils 0, Platelet Estimate DECREASED, Hypochromic-Microcytic 1+, Poikilocytosis 1+, Anisocytosis 1 +, Ovalocytes 1+ 05/31/17 2142: Anion Gap 20 H, Estimated GFR 47 L, Glucose 209 H, Calcium 8.8, Phosphorus 2.4 L, Magnesium 1.8, Total Bilirubin 0.6, AST 27, ALT 33, Albumin 3.7, CBC w Diff NO MAN DIFF REQ, RBC 2.74 L, MCV 91.4, MCH 29.5, MCHC 32.3 L, RDW 21.2 H , MPV 9.8, Gran % 97.6 H, Lymphocytes % 1.7 L, Monocytes % 0.7 L, Eosinophils % 0, Basophils % 0, Absolute Granulocytes 9.9 H, Absolute Lymphocytes 0.2 L, Absolute Monocytes 0.1, Absolute Eosinophils 0, Absolute Basophils 0 05/31/17 1446: CBC w Diff MAN DIFF ORDERED, RBC 2.38 L, MCV 91.4, MCH 29.6, MCHC 32.4 L, RDW 21.9 H, MPV 10.4, Gran % 97.9 H, Lymphocytes % 1.4 L, Monocytes % 0.5 L, Eosinophils % 0.2, Basophils % 0, Absolute Granulocytes 5.6, Segmented Neutrophils 96 H, Band Neutrophils 2, Absolute Lymphocytes 0.1 L, Lymphocytes 1 L, Absolute Monocytes 0 L, Absolute Eosinophils 0, Absolute Basophils 0, Metamyelocytes 1, Platelet Estimate ADEQUATE, Polychromasia 1+, Hypochromic- Microcytic 1+, Anisocytosis 2+, Macrocytic Cells 1+ 05/31/17 1400: pH 7.52 H, pCO2 30 L, pO2 65 L, HCO3 23, ABG O2 Sat (Measured) 91.0 L, Carboxyhemoglobin 0.9 L, O2 Concentration % 35, Respiration Rate 12, O2 Delivery Method VENT, Vent Mode AC, Expiratory Pressure 5, Tidal Volume 500, Phlebotomy Draw Site LEFT RADIAL Assessment/Plan Assessment/Plan 1. Acute hypoxic respiratory failure/septic shock secondary to MSSA PNA on Oxacillin Extubated 7 days ago, now reintubated, CXR unchanged, spiked fever 2 days ago ( sputum cultures growing pseudomonas and yeasts)- atb changed to Zosyn 2. atrial fibrillation, on oral cardizem, amiodarone, metoprolol, rate acceptable 3. GARCÍA-creatinine stable, BUN increased today 4.Thrombocytopenia/ITP, on steroids 5. Anemia- stable Plan: decrease Lasix to 40 mg iv bid decrease amiodarone to 200 mg bid increase cardizem to 60 mg qid continue Eliquis Continue telemetry? Yes
--- NOTE | 2017-06-02 07:35 | PN- Hematology ---
Subjective Subjective: She was noted to be febrile yesterday. She was placed on Zosyn. She was also given 2 units of pRBC over the weekend. She did have a reaction with the transfusion and was given Bendryl and 40 mg Solu-Medrol. She is now afebrile. She remains intubated and on 40% FiO2. Review of Systems: Limited due to intubation. Objective Vital Signs and I&Os Vital Signs Date Time Temp Pulse Resp B/P B/P Pulse O2 O2 Flow FiO2 Mean Ox Delivery Rate 06/02 0640 40 06/02 0540 130 130/74 06/02 0540 130 130/74 06/02 0400 96 Ventilator 40% 06/02 0316 40 06/02 0048 40 06/02 0000 98.6 135 22 122/74 94 Ventilator 40% 06/02 0000 94 Ventilator 40% 06/01 2359 134 140/87 06/01 2214 40 06/01 2154 144 136/86 06/01 2154 144 136/86 06/01 2000 94 Ventilator 40% 06/01 1910 40 06/01 1751 123 06/01 1700 40 06/01 1600 96 Ventilator 40% 06/01 1600 98.8 101 19 138/70 96 Ventilator 40% 06/01 1440 40 06/01 1300 107 128/70 06/01 1200 99 Ventilator 40% 06/01 1200 98.8 120 20 142/80 98 Ventilator 40% 06/01 0951 108 06/01 0920 40 06/01 0800 98 Ventilator 40% 06/01 0800 99.4 117 23 132/66 98 Ventilator 40% Intake & Output 06/02 0800 06/02 0000 06/01 1600 06/01 0800 06/01 0000 05/31 1600 Intake Total 1280 1163 1368 1292 1339 898 Output Total 850 1250 9536 189 5999 1550 Balance 430 -87 168 668 114 -652 Intake, IV 220 220 240 120 443 150 Intake, Oral 0 0 Intake, Other 345 Intake, Tube 480 458 428 492 456 403 Feeding Intake, Tube 580 485 700 680 440 Irrigant Number 1 1 1 0 0 1 Bowel Movements Output, Urine 850 1250 1202 669 9521 1550 Patient 128.82 kg 127.913 kg Weight Weight Bed scale Bed scale Measurement Method Physical Exam: General Appearance: awake, comfortable, intubated Ears, Nose, Throat: ET tube in place Respiratory: chest non-tender, rhonchi Cardiovascular: tachycardia, irregularly irregular Abdomen: normal bowel sounds, soft, non-tender Extremities: bilateral upper extremity (1+ LUE, 2+ RUE), ecchymoses in upper extremities, hyperpigmented lower extremities, RUE with PICC line Neurologic/Psychiatric: arousable, intubated Current Medications: Current Medications Sig/Ric Start time Last Medication Dose Route Stop Time Status Admin Acetaminophen 650 MG Q6P PRN 05/19 0300 AC PO Acetaminophen 1,000 MG Q6P PRN 05/19 0300 AC 05/31 IV 2010 Acetylcysteine 2 ML EVERY 4 HRS/AWAKE 05/28 2000 AC 06/01 INH 205 Albumin Human 25 GM Q8H 05/24 0822 AC 06/02 IV 0000 Albuterol Sulfate 3 ML EVERY 4 HRS/AWAKE 05/30 0800 AC 06/01 INH 205 Amiodarone HCl 200 MG Q8 05/30 1400 AC 06/02 PO 0540 Apixaban 2.5 MG BID 05/28 2200 AC 06/01 PO 2155 Artificial Tears 2 GTT 4 TIMES/DAY PRN 05/30 0745 AC OPH Ascorbic Acid 500 MG DAILY 05/29 1000 AC 06/01 PO 0951 Cefazolin Sodium 1,000 MG IQ8 05/27 1600 DC 06/01 IV 1026 Diltiazem HCl 30 MG Q6 05/31 1200 AC 06/02 PO 0540 Docusate Sodium 100 MG DAILY AC 05/23 0820 AC 05/29 PO 0541 Furosemide 40 MG 7:30 AM, & 4:30 PM 05/30 1630 AC 06/02 IV 0638 Glycerin 2 SPRAY Q2P PRN 05/27 0800 AC PO Glycerin/Mineral Oil 1 PEDRITO TID PRN 05/24 1100 AC TOP Insulin Aspart 0 Q4H 05/21 1800 AC 06/02 SC 0540 Insulin Detemir 10 UNITS BID 05/31 2200 AC 06/01 SC 2154 Magnesium Oxide 400 MG ONE ONE 06/01 0930 DC 06/01 PO 06/01 0931 0950 Magnesium Sulfate 1 GM ONCE ONE 06/02 0700 AC Dextrose/Water 100 ML IV 06/02 1059 Magnesium Sulfate 1 GM ONCE ONE 06/01 0915 CAN Dextrose/Water 100 ML IV 06/01 1314 Metoprolol Tartrate 100 MG BID 05/30 1000 AC 06/01 PO 2154 Multivitamins 1 TAB DAILY 05/29 1000 AC 06/01 PO 0952 Non-Formulary 0 SEE ADMIN CRITERIA 06/01 1130 CAN Medication ANY Pantoprazole Sodium 40 MG DAILY 05/20 0030 AC 06/01 IV 1026 Piperacillin Sod/ 4.5 GM Q8H 06/01 1200 AC 06/02 Tazobactam Sod IV 0352 Sodium Chloride 100 ML Polyethylene Glycol 17 GM DAILY 05/23 1000 AC 05/29 PO 0936 Potassium Chloride 40 MEQ ONCE ONE 06/01 0930 CAN PO 06/01 0931 Potassium Chloride 60 MEQ ONCE ONE 06/01 0930 DC 06/01 PO 06/01 0931 0950 Potassium Chloride 10 MEQ Q1H 06/01 0915 DC IV 06/01 1016 Prednisone 70 MG DAILY 05/31 1000 AC 06/01 PO 0951 Zinc Sulfate 220 MG DAILY 05/29 1000 AC 06/01 PO 0951 Results Last 24 Hours of Lab Results: Laboratory Tests 06/02 06/01 0355 1415 Chemistry Sodium (137 - 145 mmol/L) 147 H Potassium (3.5 - 5.1 mmol/L) 3.9 Chloride (98 - 107 mmol/L) 102 Carbon Dioxide (22 - 30 mmol/L) 27 Anion Gap (5 - 16) 18 H BUN (7 - 17 mg/dL) 63 H Creatinine (0.5 - 1.0 mg/dL) 1.2 H Estimated GFR (>60 ml/min) 43 L Glucose (65 - 99 mg/dL) 191 H Calcium (8.4 - 10.2 mg/dL) 9.0 Phosphorus (2.5 - 4.5 mg/dL) 2.7 Magnesium (1.6 - 2.3 mg/dL) 1.8 Total Bilirubin (0.2 - 1.3 mg/dL) 0.7 AST (14 - 36 U/L) 17 ALT (9 - 52 U/L) 24 Albumin (3.5 - 5.0 g/dL) 3.8 Hematology CBC w Diff NO MAN DIFF REQ NO MAN DIFF REQ WBC (4.8 - 10.8 /CUMM) 5.2 6.0 RBC (4.20 - 5.40 /CUMM) 2.77 L 2.89 L Hgb (12.0 - 16.0 G/DL) 8.3 L 8.5 L Hct (37 - 47 %) 25.3 L 26.4 L MCV (81.0 - 99.0 FL) 91.6 91.3 MCH (27.0 - 31.0 PG) 29.9 29.4 MCHC (33.0 - 37.0 G/DL) 32.7 L 32.2 L RDW (11.5 - 14.5 %) 19.9 H 20.1 H Plt Count (130 - 400 /CUMM) 118 L 126 L MPV (7.4 - 10.4 FL) 10.6 H 10.5 H Gran % (42.2 - 75.2 %) 95.0 H 96.1 H Lymphocytes % (20.5 - 51.1 %) 4.0 L 3.3 L Monocytes % (1.7 - 9.3 %) 1.0 L 0.6 L Eosinophils % (0 - 5 %) 0 0 Basophils % (0.0 - 2.0 %) 0 0 Absolute Granulocytes (1.4 - 6.5 /CUMM) 5.0 5.8 Absolute Lymphocytes (1.2 - 3.4 /CUMM) 0.2 L 0.2 L Absolute Monocytes (0.10 - 0.60 /CUMM) 0.1 0 L Absolute Eosinophils (0.0 - 0.7 /CUMM) 0 0 Absolute Basophils (0.0 - 0.2 /CUMM) 0 0 Assessment/Plan Assessment/Recommendations: Ms. Christine is an 86-year-old female with chronic ITP, HTN, HLD, SC s/p PCI with stent, DM, and atrial fibrillation who presented with new hypoxia and cough. She has been having new cough a few days ago. CTA demonstrated moderate atelectasis/consolidation in the left upper and lower lobes. There was mild right base atelectasis and moderate left and [id number] right pleural effusions. She was briefly in shock and required Levophed. She was improving on Oxacillin. She is now on Zosyn given recent fever. She remains in atrial fibrillation with RVR. She is on amiodarone and diltiazem. she remains intubated and on FiO2 of 40%. Blood work demonstrates worsening thrombocytopenia again. She may be related to infectious etiology given fever. DIC is also in the differential still. Platelet has been trending downward around time of taper. It may be reasonable to increase it back to 80 mg. She should be check to see if heparin has been given recently (heparin flushes, etc). Anemia is likely multifactorial. It is unlikely due to hemolysis. Chronic ITP: - increase prednisone to 80 mg daily - check DIC - check if heparin was given Anemia: - monitor for bleeding - check reticulocytes tomorrow AM Acute hypoxic respiratory failure: - continue management as per ICU - antibiotics as per primary and ID Atrial fibrillation with RVR: -cardiology following -currently receiving apixaban, amiodarone, diltiazem, metoprolol Please call [phone] with any questions or concerns. Problem List: 1. Sepsis 2. Atrial fibrillation with RVR 3. Chronic anemia 4. Thrombocytopenia
--- NOTE | 2017-06-02 07:50 | PN- Diabetes ---
Assessment/Plan Assessment: Patient is now reintubated. She is on a respirator and sedated. Her steroid dose is prednisone 80 mg once a day. Sputum culture is positive for pseudomonas. T max was 101.4 last night. Patient's antibiotics have been adjusted. She is presently on 10 units of Levemir twice a day. Her tube feedingsis at 65 mL/h. She is also on every 4 hour NovoLog coverage. Most recent fingerstick blood sugars are 236, 266 and 185. In the lab this morning at 3:55 AM her sugar was 191. Her serum sodium remains high at 147. She is receiving free water flushes via feeding tube. Plan: Suggest continue the present insulin regimen including Levemir 10 units twice a day and sliding scale NovoLog. Continued to give free water in sufficient amount to try to bring the patient's serum sodium down. The patient's serum albumin is now 3.8 which means she will be subject to less tissue edema. Perhaps her Lasix could be cut back as her BUN is rising to 63 and creatinine 1.2. Subjective Subjective: Intubated and sedated Objective Last 24 Hrs of Vital Signs/I&O Vital Signs Date Time Temp Pulse Resp B/P B/P Pulse O2 O2 Flow FiO2 Mean Ox Delivery Rate 06/02 0640 40 06/02 0540 130 130/74 06/02 0540 130 130/74 06/02 0400 96 Ventilator 40% 06/02 0316 40 06/02 0048 40 06/02 0000 98.6 135 22 122/74 94 Ventilator 40% 06/02 0000 94 Ventilator 40% 06/01 2359 134 140/87 06/01 2214 40 06/01 2154 144 136/86 06/01 2154 144 136/86 06/01 2000 94 Ventilator 40% 06/01 1910 40 06/01 1751 123 06/01 1700 40 06/01 1600 96 Ventilator 40% 06/01 1600 98.8 101 19 138/70 96 Ventilator 40% 06/01 1440 40 06/01 1300 107 128/70 06/01 1200 99 Ventilator 40% 06/01 1200 98.8 120 20 142/80 98 Ventilator 40% 06/01 0951 108 06/01 0920 40 06/01 0800 98 Ventilator 40% 06/01 0800 99.4 117 23 132/66 98 Ventilator 40% Intake & Output 06/02 0800 06/02 0000 01/28 1600 Intake Total 1280 1163 1368 Output Total 850 1250 1200 Balance 430 -87 168 Intake, IV 220 220 240 Intake, Tube 480 458 428 Feeding Intake, Tube 580 485 700 Irrigant Number 1 1 1 Bowel Movements Output, Urine 850 1250 1200 Vital Signs Date Time Temp Pulse Resp B/P B/P Pulse O2 O2 Flow FiO2 Mean Ox Delivery Rate 06/02 0640 40 06/02 0540 130 130/74 06/02 0540 130 130/74 06/02 0400 96 Ventilator 40% 06/02 0316 40 06/02 0048 40 06/02 0000 98.6 135 22 122/74 94 Ventilator 40% 06/02 0000 94 Ventilator 40% 06/01 2359 134 140/87 06/01 2214 40 06/01 2154 144 136/86 06/01 2154 144 136/86 06/01 1999 94 Ventilator 40% 06/01 1910 40 06/01 1751 123 06/01 1700 40 06/01 1600 96 Ventilator 40% 06/01 1600 98.8 101 19 138/70 96 Ventilator 40% 06/01 1440 40 06/01 1300 107 128/70 06/01 1200 99 Ventilator 40% 06/01 1200 98.8 120 20 142/80 98 Ventilator 40% 06/01 0951 108 06/01 0920 40 06/01 0800 98 Ventilator 40% 06/01 0800 99.4 117 23 132/66 98 Ventilator 40% Intake & Output 06/02 0800 06/02 0000 06/01 1600 Intake Total 1280 1163 1368 Output Total 850 1250 1200 Balance 430 -87 168 Intake, IV 220 220 240 Intake, Tube 480 458 428 Feeding Intake, Tube 580 485 700 Irrigant Number 1 1 1 Bowel Movements Output, Urine 850 1250 1200 Physical Exam General Appearance: sedated, intubated Head: normal appearance Neck: normal inspection Respiratory: normal breath sounds Cardiovascular: regular rate/rhythm Abdomen: normal bowel sounds Extremities: normal inspection Current Medications: Current Medications Sig/Ric Start time Last Medication Dose Route Stop Time Status Admin Acetaminophen 650 MG Q6P PRN 05/19 299 AC PO Acetaminophen 1,000 MG Q6P PRN 05/19 299 AC 05/31 IV 2009 Acetylcysteine 2 ML EVERY 4 HRS/AWAKE 05/28 1999 AC 06/01 INH 205 Albumin Human 25 GM Q8H 05/24 0822 AC 06/02 IV 0734 Albuterol Sulfate 3 ML EVERY 4 HRS/AWAKE 05/30 0800 AC 06/01 INH 2057 Amiodarone HCl 200 MG BID 06/02 2200 AC PO Amiodarone HCl 200 MG Q8 05/30 1400 DC 06/02 PO 0540 Apixaban 2.5 MG BID 05/28 2200 AC 06/01 PO 2155 Artificial Tears 2 GTT 4 TIMES/DAY PRN 05/30 0745 AC OPH Ascorbic Acid 500 MG DAILY 05/29 1000 AC 06/01 PO 0951 Cefazolin Sodium 1,000 MG IQ8 05/27 1600 DC 06/01 IV 1026 Diltiazem HCl 60 MG Q6 06/02 1200 AC PO Diltiazem HCl 30 MG Q6 05/31 1200 DC 06/02 PO 0540 Docusate Sodium 100 MG DAILY AC 05/23 0820 AC 05/29 PO 0541 Furosemide 40 MG 7:30 AM, & 4:30 PM 05/30 1630 AC 06/02 IV 0638 Glycerin 2 SPRAY Q2P PRN 05/27 0800 AC PO Glycerin/Mineral Oil 1 PEDRITO TID PRN 05/24 1100 AC TOP Insulin Aspart 0 Q4H 05/21 1800 AC 06/02 SC 0540 Insulin Detemir 10 UNITS BID 05/31 2200 AC 06/01 SC 2154 Magnesium Oxide 400 MG ONE ONE 06/01 0930 DC 06/01 PO 06/01 0931 0950 Magnesium Sulfate 1 GM ONCE ONE 06/02 0700 AC Dextrose/Water 100 ML IV 06/02 1059 Magnesium Sulfate 1 GM ONCE ONE 06/01 0915 CAN Dextrose/Water 100 ML IV 06/01 1314 Metoprolol Tartrate 100 MG BID 05/30 1000 AC 06/01 PO 2154 Multivitamins 1 TAB DAILY 05/29 1000 AC 06/01 PO 0952 Non-Formulary 0 SEE ADMIN CRITERIA 06/01 1130 CAN Medication ANY Pantoprazole Sodium 40 MG DAILY 05/20 0030 AC 06/01 IV 1026 Piperacillin Sod/ 4.5 GM Q8H 06/01 1200 AC 06/02 Tazobactam Sod IV 0352 Sodium Chloride 100 ML Polyethylene Glycol 17 GM DAILY 05/23 1000 AC 05/29 PO 0936 Potassium Chloride 40 MEQ ONCE ONE 06/01 0930 CAN PO 06/01 0931 Potassium Chloride 60 MEQ ONCE ONE 06/01 09 DC 06/01 PO 06/01 0931 0950 Potassium Chloride 10 MEQ Q1H 06/01 0915 DC IV 06/01 1016 Prednisone 80 MG DAILY 06/02 1000 AC PO Prednisone 70 MG DAILY 05/31 1000 DC 06/01 PO 0951 Zinc Sulfate 220 MG DAILY 05/29 1000 AC 06/01 PO 0951 Findings Pertinent Lab/Silvano Results: Laboratory Tests 06/02 06/01 0355 1415 Chemistry Sodium (137 - 145 mmol/L) 147 H Potassium (3.5 - 5.1 mmol/L) 3.9 Chloride (98 - 107 mmol/L) 102 Carbon Dioxide (22 - 30 mmol/L) 27 Anion Gap (5 - 16) 18 H BUN (7 - 17 mg/dL) 63 H Creatinine (0.5 - 1.0 mg/dL) 1.2 H Estimated GFR (>60 ml/min) 43 L Glucose (65 - 99 mg/dL) 191 H Calcium (8.4 - 10.2 mg/dL) 9.0 Phosphorus (2.5 - 4.5 mg/dL) 2.7 Magnesium (1.6 - 2.3 mg/dL) 1.8 Total Bilirubin (0.2 - 1.3 mg/dL) 0.7 AST (14 - 36 U/L) 17 ALT (9 - 52 U/L) 24 Albumin (3.5 - 5.0 g/dL) 3.8 Hematology CBC w Diff NO MAN DIFF REQ NO MAN DIFF REQ WBC (4.8 - 10.8 /CUMM) 5.2 6.0 RBC (4.20 - 5.40 /CUMM) 2.77 L 2.89 L Hgb (12.0 - 16.0 G/DL) 8.3 L 8.5 L Hct (37 - 47 %) 25.3 L 26.4 L MCV (81.0 - 99.0 FL) 91.6 91.3 MCH (27.0 - 31.0 PG) 29.9 29.4 MCHC (33.0 - 37.0 G/DL) 32.7 L 32.2 L RDW (11.5 - 14.5 %) 19.9 H 20.1 H Plt Count (130 - 400 /CUMM) 118 L 126 L MPV (7.4 - 10.4 FL) 10.6 H 10.5 H Gran % (42.2 - 75.2 %) 95.0 H 96.1 H Lymphocytes % (20.5 - 51.1 %) 4.0 L 3.3 L Monocytes % (1.7 - 9.3 %) 1.0 L 0.6 L Eosinophils % (0 - 5 %) 0 0 Basophils % (0.0 - 2.0 %) 0 0 Absolute Granulocytes (1.4 - 6.5 /CUMM) 5.0 5.8 Absolute Lymphocytes (1.2 - 3.4 /CUMM) 0.2 L 0.2 L Absolute Monocytes (0.10 - 0.60 /CUMM) 0.1 0 L Absolute Eosinophils (0.0 - 0.7 /CUMM) 0 0 Absolute Basophils (0.0 - 0.2 /CUMM) 0 0
[2017-06-02 07:55] VITALS: BP 112/62
--- NOTE | 2017-06-02 09:35 | RADIOLOGY REPORT ---
EXAMINATION: CR PORTABLE CHEST CLINICAL INFORMATION: Hypoxemia. Status post intubation. COMPARISON: Multiple prior chest x-rays, most recent of which is dated 06/01/2017. TECHNIQUE: Portable AP semierect view of the chest was obtained. FINDINGS: Endotracheal tube tip approximately 6 cm above the krystal. Enteric tube courses into the abdomen with tip not included. There is a right-sided PICC line in place with tip in the deep SVC region, but poorly visualized. The cardiomediastinal silhouette is enlarged. Calcification of the aortic arch is seen. Low lung volumes are noted with diffuse pulmonary edema and layering bilateral pleural effusions again seen. Associated bibasilar opacities, left greater than right are seen, unchanged, possibly due to atelectasis or pneumonia. Clinical correlation requested. Degenerative changes are noted in the left shoulder joint and the thoracic spine. IMPRESSION: 1. Endotracheal tube tip approximately 6 cm above the krystal. 2. Enteric tube tip in the abdomen not included. 3. Right-sided PICC line tip poorly visualized but likely in region of the deep SVC. 4. No significant change in pulmonary edema and bilateral layering pleural effusions. 5. Bibasilar opacities, left greater than right, unchanged, possibly due to atelectasis or pneumonia. Clinical correlation requested.
--- NOTE | 2017-06-02 11:17 | PN- Infect Dx ---
Subjective Subjective: Afebrile on steroids. She does not offer any complaints. Objective Last 24 Hrs of Vital Signs/I&O Vital Signs Date Time Temp Pulse Resp B/P B/P Pulse O2 O2 Flow FiO2 Mean Ox Delivery Rate 06/02 0923 40 06/02 0914 139 137/92 06/02 0800 98 Ventilator 40% 06/02 0755 98.4 112 17 112/62 98 Ventilator 40% 06/02 0640 40 06/02 0540 130 130/74 06/02 0540 130 130/74 06/02 0400 96 Ventilator 40% 06/02 0316 40 06/02 0048 40 06/02 0000 98.6 135 22 122/74 94 Ventilator 40% 06/02 0000 94 Ventilator 40% 06/01 2359 134 140/87 06/01 2214 40 06/01 2154 144 136/86 06/01 2154 144 136/86 06/01 1999 94 Ventilator 40% 06/01 1910 40 06/01 1751 123 06/01 1700 40 06/01 1600 96 Ventilator 40% 06/01 1600 98.8 101 19 138/70 96 Ventilator 40% 06/01 1440 40 06/01 1300 107 128/70 06/01 1200 99 Ventilator 40% 06/01 1200 98.8 120 20 142/80 98 Ventilator 40% Intake & Output 06/02 1600 06/02 0800 06/02 0000 Intake Total 1280 1163 Output Total 850 1250 Balance 430 -87 Intake, IV 220 220 Intake, Tube 480 458 Feeding Intake, Tube 580 485 Irrigant Number 1 1 Bowel Movements Output, Urine 850 1250 Patient 277 lb Weight Weight Bed scale Measurement Method Physical Exam Other Physical Findings: She appears comfortable on the ventilator in no acute distress Lungs bilateral rhonchi Heart regular rhythm with no murmur Abdomen is soft, nontender with positive bowel sounds Extremities chronic venous stasis changes both lower extremities; PICC in the right upper extremity with no inflammation at the site Faust catheter remains in place Results Last 24 Hours of Lab Results: Laboratory Tests 06/02 06/01 0355 1415 Chemistry Sodium (137 - 145 mmol/L) 147 H Potassium (3.5 - 5.1 mmol/L) 3.9 Chloride (98 - 107 mmol/L) 102 Carbon Dioxide (22 - 30 mmol/L) 27 Anion Gap (5 - 16) 18 H BUN (7 - 17 mg/dL) 63 H Creatinine (0.5 - 1.0 mg/dL) 1.2 H Estimated GFR (>60 ml/min) 43 L Glucose (65 - 99 mg/dL) 191 H Calcium (8.4 - 10.2 mg/dL) 9.0 Phosphorus (2.5 - 4.5 mg/dL) 2.7 Magnesium (1.6 - 2.3 mg/dL) 1.8 Total Bilirubin (0.2 - 1.3 mg/dL) 0.7 AST (14 - 36 U/L) 17 ALT (9 - 52 U/L) 24 Albumin (3.5 - 5.0 g/dL) 3.8 Hematology CBC w Diff NO MAN DIFF REQ NO MAN DIFF REQ WBC (4.8 - 10.8 /CUMM) 5.2 6.0 RBC (4.20 - 5.40 /CUMM) 2.77 L 2.89 L Hgb (12.0 - 16.0 G/DL) 8.3 L 8.5 L Hct (37 - 47 %) 25.3 L 26.4 L MCV (81.0 - 99.0 FL) 91.6 91.3 MCH (27.0 - 31.0 PG) 29.9 29.4 MCHC (33.0 - 37.0 G/DL) 32.7 L 32.2 L RDW (11.5 - 14.5 %) 19.9 H 20.1 H Plt Count (130 - 400 /CUMM) 118 L 126 L MPV (7.4 - 10.4 FL) 10.6 H 10.5 H Gran % (42.2 - 75.2 %) 95.0 H 96.1 H Lymphocytes % (20.5 - 51.1 %) 4.0 L 3.3 L Monocytes % (1.7 - 9.3 %) 1.0 L 0.6 L Eosinophils % (0 - 5 %) 0 0 Basophils % (0.0 - 2.0 %) 0 0 Absolute Granulocytes (1.4 - 6.5 /CUMM) 5.0 5.8 Absolute Lymphocytes (1.2 - 3.4 /CUMM) 0.2 L 0.2 L Absolute Monocytes (0.10 - 0.60 /CUMM) 0.1 0 L Absolute Eosinophils (0.0 - 0.7 /CUMM) 0 0 Absolute Basophils (0.0 - 0.2 /CUMM) 0 0 Last 24 Hours of Silvano Results: Sputum culture May 31 positive for Pseudomonas sensitive to all antibiotics tested and yeast Blood cultures 2 June 01 negative Recent Imaging Studies: Chest x-ray June 02 reveals bibasilar opacities, left greater than right, with bilateral layering pleural effusions Assessment/Plan Impression: Stable, with no further fevers and with her white blood cell count normal, on Zosyn, begun yesterday after her sputum culture was found to be positive for Pseudomonas, with the development of a fever and increased white blood cell count (though only to 10,000) over the last 2 days, and with increased densities on chest x-ray. Suggestion: 1. Discontinue Zosyn 2. Begin Ceftazidime 1 g IV every 8 hours
[2017-06-02 12:00] VITALS: BP 120/58
[2017-06-02 16:00] VITALS: BP 102/60
[2017-06-03 00:09] VITALS: BP 106/54
[2017-06-03 04:40] LABS: ABSOLUTE BASOPHIL COUNT 0 /CUMM (0.0-0.2); ABSOLUTE EOSINOPHIL COUNT 0 /CUMM (0.0-0.7); ABSOLUTE GRANULOCYTE CT 4.1 /CUMM (1.4-6.5); ABSOLUTE LYMPH COUNT 0.2 /CUMM (1.2-3.4); ABSOLUTE MONOCYTE COUNT 0.1 /CUMM (0.10-0.60); BASOPHIL % 0.1 % (0.0-2.0); EOSINOPHIL % 0 % (0-5); HEMATOCRIT 23.8 % (37-47); MEAN CORPUSCULAR HGB 29.4 PG (27.0-31.0); MEAN CORPUSCULAR HGB CONC 32.3 G/DL (33.0-37.0); MEAN PLATELET VOLUME 10.6 FL (7.4-10.4); RED BLOOD CELL CT 2.62 /CUMM (4.20-5.40); WHITE BLOOD CELL COUNT 4.4 /CUMM (4.8-10.8)
[2017-06-03 04:46] LABS: PT 16.4 SEC (9.4-12.5); PTT 37 SEC (25-37)
[2017-06-03 04:59] LABS: PLATELET COUNT 89 /CUMM (130-400)
--- NOTE | 2017-06-03 07:09 | PN- Resident CRCU ---
Jaron RAMOS,[facility] 06/03/17 0709: Subjective HPI/CRCU Issues: Atrial Fibrilliation Thrombocytopenia Acute Hypoxic Respiratory Failure 24 Hour Events: No acute events overnight. Objective Vital Signs & I&O Last 8 Hrs of Vitals and I&O: . Exam General Appearance: no apparent distress, alert, awake, intubated Head: atraumatic, normal appearance Respiratory: normal breath sounds, chest non-tender, rhonchi Cardiovascular: tachycardia, irregularly irregular Gastrointestinal: soft, non-tender Extremities: right upper extremity edema Cranial Nerves: normal hearing Skin: intact Skin Temp/Moisture Exam: Warm/Dry Sepsis Skin Exam (color): Normal for Ethnicity Weaning Parameters NIF: 19 Minute Volume: 9.18 Resp rate: 33 Vt: 275 Heart Rate: 132 Weaning Schedule Start Time: 1845 Minute Volume: 11.8 Resp Rate: 38 Vt: 310 Heart Rate: 112 End Time: 1855 Minute Volume: 10.9 Resp Rate: 45 Vt: 240 Heart Rate: 130 Current Medications: Current Medications Sig/Ric Start time Last Medication Dose Route Stop Time Status Admin Acetaminophen 650 MG Q6P PRN 05/19 030 AC PO Acetaminophen 1,000 MG Q6P PRN 05/19 0300 AC 05/31 IV 2010 Acetylcysteine 4 ML EVERY 4 HRS/AWAKE 06/02 1600 AC 06/03 INH 0854 Acetylcysteine 2 ML EVERY 4 HRS/AWAKE 05/28 2000 DC 06/02 INH 1136 Albumin Human 25 GM Q8H 05/24 0822 AC 06/03 IV 0826 Albuterol Sulfate 3 ML EVERY 4 HRS/AWAKE 05/30 0800 AC 06/03 INH 0854 Amiodarone HCl 200 MG BID 06/02 2200 AC 06/03 PO 1015 Apixaban 2.5 MG BID 05/28 2200 DC 06/02 PO 2114 Artificial Tears 2 GTT 4 TIMES/DAY PRN 05/30 0745 AC OPH Ascorbic Acid 500 MG DAILY 05/29 1000 AC 06/03 PO 1012 Ceftazidime 1,000 MG IQ8 06/02 1600 AC 06/03 IV 0825 Diltiazem HCl 60 MG Q6 06/02 1800 AC 06/03 PO 0636 Diltiazem HCl 60 MG Q6 06/02 1200 DC 06/02 PO 1115 Docusate Sodium 100 MG DAILY AC 05/23 0820 AC 06/03 PO 0634 Furosemide 40 MG DAILY 06/03 1000 CAN IV Glycerin 2 SPRAY Q2P PRN 05/27 0800 AC PO Glycerin/Mineral Oil 1 PEDRITO TID PRN 05/24 1100 AC TOP Insulin Aspart 0 Q4H 05/21 1800 AC 06/03 SC 1012 Insulin Detemir 12 UNITS BID 06/03 1000 AC 06/03 SC 1012 Insulin Detemir 10 UNITS BID 05/31 2200 DC 06/02 SC 2114 Magnesium Sulfate 1 GM ONCE ONE 06/02 0700 DC 06/02 Dextrose/Water 100 ML IV 06/02 1059 0812 Metoprolol Tartrate 100 MG BID 05/30 1000 AC 06/03 PO 1014 Multivitamins 1 TAB DAILY 05/29 1000 AC 06/03 PO 1012 Pantoprazole Sodium 40 MG BID 06/03 1000 AC 06/03 IV 1015 Pantoprazole Sodium 40 MG DAILY 05/20 0030 DC 06/02 IV 0915 Polyethylene Glycol 17 GM DAILY 05/23 1000 AC 06/02 PO 0915 Prednisone 80 MG DAILY 06/02 1000 AC 06/03 PO 1013 Zinc Sulfate 220 MG DAILY 05/29 1000 AC 06/03 PO 1015 Impression/Plan Impression/Problem List Impression: 86 year old woman with past medical history of hypertension, hyperlipidemia, DE s/p PCI with stent, diabetes mellitus, and restless leg syndrome, history of atrial fibrillation with anticoagulation on hold due to severe thrombocytopenia was sent in from extended care facility for hypoxia, leukocytosis and productive cough. She was admitted on telemetry floor and transfered to ICU after patient desaturated became unresponsive. Assessment and Plan: Acute hypoxic respiratory failure likely secondary to HCAP: * Her white count has normalized and she's been afebrile. Her repeat sputum culture is growing Pseudomonas sensitive to Ceftazidime. * Her CXR today shows worsening haziness on the right side. She appears to have chronic left lower lobe collapse. * Antibiotics switched to Ceftazidime 1g q8. * Reintubated again on 05/28. * ID recs appreciated. * Continue mucomist BID nebs and aggressive pulmonary toilet. * Will continue diuresis with IV Lasix 40mg daily. She has a rising BUN, concerning for pre-renal azotemia. * Will discuss goals of care with family. Atrial Fibrilliation: * Will continue metoprolol 100mg BID. * Continue oral Amiodarone at 200mg BID. * Continue Cardizem 60mg q6 * Discontinue Elliquis 2.5mg BID as Plt count is falling. * Echo - Normal left ventricular ejection fraction visually estimated at > 60% . Immune Thrombocytopenia: * Her platelets have shown a decline past few days. Could be likely due to her reinfection. * Continue Prednisone again to 80mg. * Daily CBC * s/p 1 unit transfusion of platelets 05/22. 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 * GARCÍA on CKD: /resolved * Cr 1.3 today. * Was likely contrast induced nephropathy initially. * Rising BUN concerning for pre-renal azotemia or even GI bleed. She did have a drop in her H&H. * Nephro recs appreciated. * Strict I&Os. Diabetes Mellitus: * Contineu tube feeds with Glucerna 1.2. Will increase volume of flush to correct hypernatremia. * Levemir 12mg BID * Insulin SS. Adjusted per Endo's recommendations. Lower Extremity Skin Changes: * Was evaluated by vascular surgery. Recommend no surgical intervention at this time. * Small ulcer on left/right foot base. Wound care notes appreciated. History of restless leg syndrome: * Sinemet was recently discontinued * Lyrica on hold currently. * Lubriderm to affected skin. DVT Prophylaxis: ALPS Code: Full Problem List: 1. A-fib Pain Ratin Tomorrow's Labs & Rationales: CBC, ICU bundle, Plan DVT/Prophylaxis: Jordi Trujillo MD 06/03/17 1220: Attending MD Review Statement Attending Sign Off Attending Cosign Statement: I have: examined this patient, reviewed avalbl EMR data, personally reviewd images, discussd w/resident/PA/DRONE PILOT, discussed mgmt plan w/ida, discussed mgmt plan w/CM, discussed mgmt plan w/pt, agreed w/resident/PA/DRONE PILOT, amended to note. Other Findings: Jordi Lopez M.D. have examined this patient, reviewed available EMR data, personally reviewed images, discussed with resident/PA/DRONE PILOT, discussed management plan with housestaff and nursing staff, discussed managment plan all of healthcare providers, discussed management plan with patient and/or family, agreed with resident/PA/DRONE PILOT. The past history and parts of the chart have been autopopulated. Impression 86 year old woman resolved septic shock a.fib RVR acute hypoxemic respiratory failure GARCÍA improved Plan -cont mechanical ventilation -goals of care discussion -ID f/u - on ceftazadime -cardiology, ID f/u -f/u hematology recommendations, stress steroids can be tapered per heme -endocrinology appreciated -nephrology consultation appreciated -plan for goals of care discussion with family DVT prophylaxis at all times TTS 35 min
--- NOTE | 2017-06-03 07:24 | PN- Cardiology ---
Subjective Subjective: Patient remains awake, intubated Objective Vital Signs and I&Os Vital Signs Date Time Temp Pulse Resp B/P B/P Pulse O2 O2 Flow FiO2 Mean Ox Delivery Rate 06/03 0644 40 06/03 0636 117 107/64 06/03 0400 40 06/03 0142 40 06/03 0009 96 Ventilator 40% 06/03 0009 99.2 104 16 106/54 96 Ventilator 40% 06/02 2345 114 111/70 06/02 2236 40 06/02 2114 124 87/60 06/02 2114 124 136/74 06/02 2000 92 Ventilator 40% 06/02 1905 40 06/02 1740 142 06/02 1655 40 06/02 1600 98.8 133 22 102/60 96 Ventilator 40% 06/02 1600 96 Ventilator 40% 06/02 1412 40 06/02 1200 93 Ventilator 40% 06/02 1200 98.8 111 17 120/58 93 Ventilator 40% 06/02 1115 108 119/70 06/02 0923 40 06/02 0914 139 137/92 06/02 0800 98 Ventilator 40% 06/02 0755 98.4 112 17 112/62 98 Ventilator 40% Intake & Output 06/03 0800 06/03 0000 06/02 1600 06/02 0800 06/02 0000 06/01 1600 Intake Total 933 1169 1280 1163 1368 Output Total 400 1103 992 1584 1200 Balance 533 -431 430 -87 168 Intake, IV 120 240 220 220 240 Intake, Tube 413 479 480 458 428 Feeding Intake, Tube 400 450 580 485 700 Irrigant Number 1 1 1 1 1 Bowel Movements Output, Urine 400 4837 786 8563 1200 Patient 277 lb Weight Weight Bed scale Measurement Method Physical Exam: HEENT-PERRLA Neck-JVP normal, no bruits Lungs-bilateral rhonchi Heart-S1S2 irregular Abdomen-soft, obese, BS+,no organomegaly Extr-dermatitis, no significant edema, diminished distal pulses Neuro-awake, intubated, non focal Current Medications: Current Medications Sig/Irc Start time Last Medication Dose Route Stop Time Status Admin Acetaminophen 650 MG Q6P PRN 05/19 299 AC PO Acetaminophen 1,000 MG Q6P PRN 05/19 299 AC 05/31 IV 2010 Acetylcysteine 4 ML EVERY 4 HRS/AWAKE 06/02 1600 AC 06/02 INH 2105 Acetylcysteine 2 ML EVERY 4 HRS/AWAKE 05/28 2000 DC 06/02 INH 1136 Albumin Human 25 GM Q8H 05/24 0822 AC 06/02 IV 2344 Albuterol Sulfate 3 ML EVERY 4 HRS/AWAKE 05/30 0800 AC 06/02 INH 2105 Amiodarone HCl 200 MG BID 06/02 2200 AC 06/02 PO 2114 Amiodarone HCl 200 MG Q8 05/30 1400 DC 06/02 PO 0540 Apixaban 2.5 MG BID 05/28 2200 AC 06/02 PO 2114 Artificial Tears 2 GTT 4 TIMES/DAY PRN 05/30 0745 AC OPH Ascorbic Acid 500 MG DAILY 05/29 1000 AC 06/02 PO 0915 Ceftazidime 1,000 MG IQ8 06/02 1600 AC 06/02 IV 2343 Diltiazem HCl 60 MG Q6 06/02 1800 AC 06/03 PO 0636 Diltiazem HCl 60 MG Q6 06/02 1200 DC 06/02 PO 1115 Diltiazem HCl 30 MG Q6 05/31 1200 DC 06/02 PO 0540 Docusate Sodium 100 MG DAILY AC 05/23 0820 AC 06/03 PO 0634 Furosemide 40 MG DAILY 06/03 1000 AC IV Furosemide 40 MG 7:30 AM, & 4:30 PM 05/30 1630 DC 06/02 IV 0638 Glycerin 2 SPRAY Q2P PRN 05/27 0800 AC PO Glycerin/Mineral Oil 1 PEDRITO TID PRN 05/24 1100 AC TOP Insulin Aspart 0 Q4H 05/21 1800 AC 06/03 SC 0642 Insulin Detemir 10 UNITS BID 05/31 2200 AC 06/02 SC 2114 Magnesium Sulfate 1 GM ONCE ONE 06/02 0700 DC 06/02 Dextrose/Water 100 ML IV 06/02 1059 0812 Metoprolol Tartrate 100 MG BID 05/30 1000 AC 06/02 PO 2114 Multivitamins 1 TAB DAILY 05/29 1000 AC 06/02 PO 0915 Pantoprazole Sodium 40 MG BID 06/03 1000 AC IV Pantoprazole Sodium 40 MG DAILY 05/20 0030 DC 06/02 IV 0915 Piperacillin Sod/ 4.5 GM Q8H 06/01 1200 DC 06/02 Tazobactam Sod IV 0352 Sodium Chloride 100 ML Polyethylene Glycol 17 GM DAILY 05/23 1000 AC 06/02 PO 0915 Prednisone 80 MG DAILY 06/02 1000 AC 06/02 PO 0915 Prednisone 70 MG DAILY 05/31 1000 DC 06/01 PO 0951 Zinc Sulfate 220 MG DAILY 05/29 1000 AC 06/02 PO 15 Results Last 48 Hrs of Labs/Mics: Laboratory Tests 06/03/17 0525: pH 7.49 H, pCO2 34 L, pO2 68 L, HCO3 25, ABG O2 Sat (Measured) 92.0 L, P-50 (Temp Corrected) Y, Carboxyhemoglobin 1.0 L, O2 Concentration % 40%, Temperature 98.8, Respiration Rate 12, O2 Delivery Method ESPRIT, Vent Mode AC, Expiratory Pressure 5, Tidal Volume 500, Phlebotomy Draw Site LEFT RADIAL 06/03/17 0400: Anion Gap 17 H, Estimated GFR 39 L, Glucose 181 H, Calcium 8.7, Phosphorus 3.3, Magnesium 2.0, Total Bilirubin 0.8, AST 14, ALT 26, Albumin 3.6, PT 16.4 H , INR 1.57 H, APTT 37, Fibrinogen Activity 190 L, CBC w Diff NO MAN DIFF REQ, RBC 2.62 L, MCV 91.0, MCH 29.4, MCHC 32.3 L, RDW 20.0 H, MPV 10.6 H, Gran % 94.0 H, Lymphocytes % 4.3 L, Monocytes % 1.6 L, Eosinophils % 0, Basophils % 0.1, Absolute Granulocytes 4.1, Absolute Lymphocytes 0.2 L, Absolute Monocytes 0.1, Absolute Eosinophils 0, Absolute Basophils 0, Retic Count 2.14 H 06/02/17 0355: Anion Gap 18 H, Estimated GFR 43 L, Glucose 191 H, Calcium 9.0, Phosphorus 2.7, Magnesium 1.8, Total Bilirubin 0.7, AST 17, ALT 24, Albumin 3.8, CBC w Diff NO MAN DIFF REQ, RBC 2.77 L, MCV 91.6, MCH 29.9, MCHC 32.7 L, RDW 19.9 H, MPV 10.6 H, Gran % 95.0 H, Lymphocytes % 4.0 L, Monocytes % 1.0 L, Eosinophils % 0, Basophils % 0, Absolute Granulocytes 5.0, Absolute Lymphocytes 0.2 L, Absolute Monocytes 0.1, Absolute Eosinophils 0, Absolute Basophils 0, Retic Count 2.19 H 06/01/17 1415: CBC w Diff NO MAN DIFF REQ, RBC 2.89 L, MCV 91.3, MCH 29.4, MCHC 32.2 L, RDW 20.1 H, MPV 10.5 H, Gran % 96.1 H, Lymphocytes % 3.3 L, Monocytes % 0.6 L, Eosinophils % 0, Basophils % 0, Absolute Granulocytes 5.8, Absolute Lymphocytes 0.2 L, Absolute Monocytes 0 L, Absolute Eosinophils 0, Absolute Basophils 0 Assessment/Plan Assessment/Plan 1. Acute hypoxic respiratory failure/septic shock secondary to MSSA PNA. Now reintubated, recurrent pneumonia-sputum positive for pseudomonas-currently on ceftazidime. 2. atrial fibrillation, on oral cardizem, amiodarone, metoprolol, rate acceptable 3. GARCÍA-increased BUN, creatinine-BUN disproportionately increased with dropping HCT-?UGI bleed 4.Thrombocytopenia/ITP, platelets dropping with reinfection 5. Anemia- worse with recurrent infection Plan: hold Lasix today decrease amiodarone to 200 mg bid if hypotension again an issue-decrease cardizem to 30 mg qid stop Eliquis for now quiac stools Continue telemetry? Yes
--- NOTE | 2017-06-03 07:39 | PN- Diabetes ---
Assessment/Plan Assessment: Patient is now reintubated. She is on a respirator and sedated. Her steroid dose is prednisone 80 mg once a day. Sputum culture is positive for pseudomonas. T max was 101.4 last night. Patient's antibiotics have been adjusted. She is presently on 10 units of Levemir twice a day. Her tube feedingsis at 65 mL/h. She is also on every 4 hour NovoLog coverage. Most recent fingerstick blood sugars are 268, 229, 220, and 227.. The patient's serum sodium is down to 145. Her creatinine has risen to 1.3 with a BUN of 67.. She is receiving free water flushes via feeding tube. Plan: Patient's blood sugars are running somewhat high. Increase the detemir to 12 units twice a day. Continue the sliding scale NovoLog. Objective Last 24 Hrs of Vital Signs/I&O Vital Signs Date Time Temp Pulse Resp B/P B/P Pulse O2 O2 Flow FiO2 Mean Ox Delivery Rate 06/03 0644 40 06/03 0636 117 107/64 06/03 0400 40 06/03 0142 40 06/03 0009 96 Ventilator 40% 06/03 0009 99.2 104 16 106/54 96 Ventilator 40% 06/02 2345 114 111/70 06/02 2236 40 06/02 2114 124 87/60 06/02 2114 124 136/74 06/02 2000 92 Ventilator 40% 06/02 1905 40 06/02 1740 142 06/02 1655 40 06/02 1600 98.8 133 22 102/60 96 Ventilator 40% 06/02 1600 96 Ventilator 40% 06/02 1412 40 06/02 1200 93 Ventilator 40% 06/02 1200 98.8 111 17 120/58 93 Ventilator 40% 06/02 1115 108 119/70 06/02 0923 40 06/02 0914 139 137/92 06/02 0800 98 Ventilator 40% 06/02 0755 98.4 112 17 112/62 98 Ventilator 40% Intake & Output 06/03 0800 06/03 0000 06/02 1600 Intake Total 933 1169 Output Total 400 1600 Balance 533 -431 Intake, IV 120 240 Intake, Tube 413 479 Feeding Intake, Tube 400 450 Irrigant Number 1 1 Bowel Movements Output, Urine 400 1600 Vital Signs Date Time Temp Pulse Resp B/P B/P Pulse O2 O2 Flow FiO2 Mean Ox Delivery Rate 06/03 0644 40 06/03 0636 117 107/64 06/03 0400 40 06/03 0142 40 06/03 0009 96 Ventilator 40% 06/03 0009 99.2 104 16 106/54 96 Ventilator 40% 06/02 2345 114 111/70 06/02 2236 40 06/02 2114 124 87/60 06/02 2114 124 136/74 06/02 2000 92 Ventilator 40% 06/02 1905 40 06/02 1740 142 06/02 1655 40 06/02 1600 98.8 133 22 102/60 96 Ventilator 40% 06/02 1600 96 Ventilator 40% 06/02 1412 40 06/02 1200 93 Ventilator 40% 06/02 1200 98.8 111 17 120/58 93 Ventilator 40% 06/02 1115 108 119/70 06/02 0923 40 06/02 0914 139 137/92 06/02 0800 98 Ventilator 40% 06/02 0755 98.4 112 17 112/62 98 Ventilator 40% Intake & Output 06/03 0800 06/03 0000 06/02 1600 Intake Total 933 1169 Output Total 400 1600 Balance 533 -431 Intake, IV 120 240 Intake, Tube 413 479 Feeding Intake, Tube 400 450 Irrigant Number 1 1 Bowel Movements Output, Urine 400 1600 Current Medications: Current Medications Sig/Ric Start time Last Medication Dose Route Stop Time Status Admin Acetaminophen 650 MG Q6P PRN 05/19 0300 AC PO Acetaminophen 1,000 MG Q6P PRN 05/19 0300 AC 05/31 IV 2010 Acetylcysteine 4 ML EVERY 4 HRS/AWAKE 06/02 1600 AC 06/02 INH 2104 Acetylcysteine 2 ML EVERY 4 HRS/AWAKE 05/28 1999 DC 06/02 INH 1136 Albumin Human 25 GM Q8H 05/24 0822 AC 06/02 IV 2344 Albuterol Sulfate 3 ML EVERY 4 HRS/AWAKE 05/30 08 AC 06/02 INH 2105 Amiodarone HCl 200 MG BID 06/02 2199 AC 06/02 PO 211 Apixaban 2.5 MG BID 05/28 2199 DC 06/02 PO 211 Artificial Tears 2 GTT 4 TIMES/DAY PRN 05/30 0745 AC OPH Ascorbic Acid 500 MG DAILY 05/29 1000 AC 06/02 PO 0915 Ceftazidime 1,000 MG IQ8 06/02 1600 AC 06/02 IV 2343 Diltiazem HCl 60 MG Q6 06/02 1800 AC 06/03 PO 0636 Diltiazem HCl 60 MG Q6 06/02 1200 DC 06/02 PO 1115 Docusate Sodium 100 MG DAILY AC 05/23 0820 AC 06/03 PO 0634 Furosemide 40 MG DAILY 06/03 1000 CAN IV Furosemide 40 MG 7:30 AM, & 4:30 PM 05/30 1630 DC 06/02 IV 0638 Glycerin 2 SPRAY Q2P PRN 05/27 0800 AC PO Glycerin/Mineral Oil 1 PEDRITO TID PRN 05/24 1100 AC TOP Insulin Aspart 0 Q4H 05/21 1800 AC 06/03 SC 0642 Insulin Detemir 10 UNITS BID 05/31 2200 AC 06/02 SC 2114 Magnesium Sulfate 1 GM ONCE ONE 06/02 0700 DC 06/02 Dextrose/Water 100 ML IV 06/02 1059 0812 Metoprolol Tartrate 100 MG BID 05/30 1000 AC 06/02 PO 2114 Multivitamins 1 TAB DAILY 05/29 1000 AC 06/02 PO 0915 Pantoprazole Sodium 40 MG BID 06/03 1000 AC IV Pantoprazole Sodium 40 MG DAILY 05/20 0030 DC 06/02 IV 0915 Piperacillin Sod/ 4.5 GM Q8H 06/01 1200 DC 06/02 Tazobactam Sod IV 0352 Sodium Chloride 100 ML Polyethylene Glycol 17 GM DAILY 05/23 1000 AC 06/02 PO 0915 Prednisone 80 MG DAILY 06/02 1000 AC 06/02 PO 0915 Zinc Sulfate 220 MG DAILY 05/29 1000 AC 06/02 PO 0915 Findings Pertinent Lab/Silvano Results: Laboratory Tests 06/03 06/03 0525 0400 Blood Gas pH (7.35 - 7.45 PH) 7.49 H pCO2 (35 - 45 TORR) 34 L pO2 (80 - 100 TORR) 68 L HCO3 (21 - 28 MEQ/L) 25 ABG O2 Sat (Measured) (>96.0 %) 92.0 L P-50 (Temp Corrected) Y Carboxyhemoglobin (1.5 - 5.0 %) 1.0 L O2 Concentration % 40% Temperature (97.0 - 100.0 FARH) 98.8 Respiration Rate (BPM) 12 O2 Delivery Method ESPRIT Vent Mode AC Expiratory Pressure (CMH2O/P) 5 Tidal Volume (CC) 500 Chemistry Sodium (137 - 145 mmol/L) 145 Potassium (3.5 - 5.1 mmol/L) 3.9 Chloride (98 - 107 mmol/L) 100 Carbon Dioxide (22 - 30 mmol/L) 28 Anion Gap (5 - 16) 17 H BUN (7 - 17 mg/dL) 67 H Creatinine (0.5 - 1.0 mg/dL) 1.3 H Estimated GFR (>60 ml/min) 39 L Glucose (65 - 99 mg/dL) 181 H Calcium (8.4 - 10.2 mg/dL) 8.7 Phosphorus (2.5 - 4.5 mg/dL) 3.3 Magnesium (1.6 - 2.3 mg/dL) 2.0 Total Bilirubin (0.2 - 1.3 mg/dL) 0.8 AST (14 - 36 U/L) 14 ALT (9 - 52 U/L) 26 Albumin (3.5 - 5.0 g/dL) 3.6 Coagulation PT (9.4 - 12.5 SEC) 16.4 H INR (0.90 - 1.19) 1.57 H APTT (25 - 37 SEC) 37 Fibrinogen Activity (200 - 393 MG/DL) 190 L Hematology CBC w Diff NO MAN DIFF REQ WBC (4.8 - 10.8 /CUMM) 4.4 L RBC (4.20 - 5.40 /CUMM) 2.62 L Hgb (12.0 - 16.0 G/DL) 7.7 L Hct (37 - 47 %) 23.8 L MCV (81.0 - 99.0 FL) 91.0 MCH (27.0 - 31.0 PG) 29.4 MCHC (33.0 - 37.0 G/DL) 32.3 L RDW (11.5 - 14.5 %) 20.0 H Plt Count (130 - 400 /CUMM) 89 L MPV (7.4 - 10.4 FL) 10.6 H Gran % (42.2 - 75.2 %) 94.0 H Lymphocytes % (20.5 - 51.1 %) 4.3 L Monocytes % (1.7 - 9.3 %) 1.6 L Eosinophils % (0 - 5 %) 0 Basophils % (0.0 - 2.0 %) 0.1 Absolute Granulocytes (1.4 - 6.5 /CUMM) 4.1 Absolute Lymphocytes (1.2 - 3.4 /CUMM) 0.2 L Absolute Monocytes (0.10 - 0.60 /CUMM) 0.1 Absolute Eosinophils (0.0 - 0.7 /CUMM) 0 Absolute Basophils (0.0 - 0.2 /CUMM) 0 Retic Count (0.5 - 2.0 %) 2.14 H Miscellaneous Phlebotomy Draw Site LEFT RADIAL
[2017-06-03 08:00] VITALS: BP 120/62
--- NOTE | 2017-06-03 08:04 | RADIOLOGY REPORT ---
EXAMINATION: XR PORTABLE CHEST CLINICAL INFORMATION: Pneumonia. COMPARISON: Portable chest x-ray dated 06/02/2017 at 6:26 AM. TECHNIQUE: Portable frontal view of the chest was obtained. FINDINGS: Generalized hazy density is present over the entire right hemithorax, this is new since the prior study. Increased density in the left retrocardiac region is noted without visualization of the left hemidiaphragm, similar to the prior study; patchy densities in the left upper lung are also present, not significantly changed compared to the prior study. Note the patient is rotated to the left. An endotracheal tube is present, the tip is located approximately 5 cm proximal to the level of the krystal. An NG tube is present, the tip extends inferiorly off the edge of the image in the upper abdomen. IMPRESSION: 1. Hazy density projecting over the entire right hemithorax, findings are as concerning for pulmonary edema, increased since the prior study. 2. Remaining densities in the left hemithorax overall stable.
--- NOTE | 2017-06-03 10:17 | PN- Hematology ---
Subjective Subjective: She remains intubated. She denies any new symptoms. She has no fever or chills. She has no bleeding complication. Review of Systems: Unable to obtain secondary to intubation Objective Vital Signs and I&Os Vital Signs Date Time Temp Pulse Resp B/P B/P Pulse O2 O2 Flow FiO2 Mean Ox Delivery Rate 06/03 0850 40 06/03 0644 40 06/03 0636 117 107/64 06/03 0400 40 06/03 0400 96 Ventilator 40% 06/03 0142 40 06/03 0009 96 Ventilator 40% 06/03 0009 99.2 104 16 106/54 96 Ventilator 40% 06/02 2345 114 111/70 06/02 2236 40 06/02 2114 124 87/60 06/02 2114 124 136/74 06/02 2000 92 Ventilator 40% 06/02 1905 06/02 1740 142 06/02 1655 40 06/02 1600 98.8 133 22 102/60 96 Ventilator 40% 06/02 1600 96 Ventilator 40% 06/02 1412 40 06/02 1200 93 Ventilator 40% 06/02 1200 98.8 111 17 120/58 93 Ventilator 40% 06/02 1115 108 119/70 Intake & Output 06/03 1600 06/03 0800 06/03 0000 06/02 1600 06/02 0800 06/02 0000 Intake Total 8021 811 8044 1280 1163 Output Total 334 551 8395 850 1250 Balance 570 533 -431 430 -87 Intake, IV 120 240 220 220 Intake, Other 200 Intake, Tube 520 413 479 480 458 Feeding Intake, Tube 300 400 450 580 485 Irrigant Number 2 1 1 1 1 Bowel Movements Output, Urine 508 704 3085 850 1250 Patient 127.006 kg 125.447 kg Weight Weight Bed scale Measurement Method Physical Exam: General Appearance: awake, comfortable, intubated Ears, Nose, Throat: ET tube in place Respiratory: chest non-tender, rhonchi Cardiovascular: tachycardia, irregularly irregular Abdomen: normal bowel sounds, soft, non-tender Extremities: bilateral upper extremity (trace LUE, 2+ RUE), ecchymoses in upper extremities, hyperpigmented lower extremities, RUE with PICC line Neurologic/Psychiatric: arousable, follows commands, intubated Current Medications: Current Medications Sig/Ric Start time Last Medication Dose Route Stop Time Status Admin Acetaminophen 650 MG Q6P PRN 05/19 0300 AC PO Acetaminophen 1,000 MG Q6P PRN 05/19 0300 AC 05/31 IV 2010 Acetylcysteine 4 ML EVERY 4 HRS/AWAKE 06/02 1600 AC 06/03 INH 0854 Acetylcysteine 2 ML EVERY 4 HRS/AWAKE 05/28 2000 DC 06/02 INH 1136 Albumin Human 25 GM Q8H 05/24 0822 AC 06/03 IV 0826 Albuterol Sulfate 3 ML EVERY 4 HRS/AWAKE 05/30 0800 AC 06/03 INH 0854 Amiodarone HCl 200 MG BID 06/02 2200 AC 06/02 PO 2114 Apixaban 2.5 MG BID 05/28 2200 DC 06/02 PO 2114 Artificial Tears 2 GTT 4 TIMES/DAY PRN 05/30 0745 AC OPH Ascorbic Acid 500 MG DAILY 05/29 1000 AC 06/02 PO 0915 Ceftazidime 1,000 MG IQ8 06/02 1600 AC 06/03 IV 0825 Diltiazem HCl 60 MG Q6 06/02 1800 AC 06/03 PO 0636 Diltiazem HCl 60 MG Q6 06/02 1200 DC 06/02 PO 1115 Docusate Sodium 100 MG DAILY AC 05/23 0820 AC 06/03 PO 0634 Furosemide 40 MG DAILY 06/03 1000 CAN IV Glycerin 2 SPRAY Q2P PRN 05/27 0800 AC PO Glycerin/Mineral Oil 1 PEDRITO TID PRN 05/24 1100 AC TOP Insulin Aspart 0 Q4H 05/21 1800 AC 06/03 SC 0642 Insulin Detemir 12 UNITS BID 06/03 1000 AC SC Insulin Detemir 10 UNITS BID 05/31 2200 DC 06/02 SC 2114 Magnesium Sulfate 1 GM ONCE ONE 06/02 0700 DC 06/02 Dextrose/Water 100 ML IV 06/02 1059 0812 Metoprolol Tartrate 100 MG BID 05/30 1000 AC 06/02 PO 2114 Multivitamins 1 TAB DAILY 05/29 1000 AC 06/02 PO 0915 Pantoprazole Sodium 40 MG BID 06/03 1000 AC IV Pantoprazole Sodium 40 MG DAILY 05/20 0030 DC 06/02 IV 0915 Piperacillin Sod/ 4.5 GM Q8H 06/01 1200 DC 06/02 Tazobactam Sod IV 0352 Sodium Chloride 100 ML Polyethylene Glycol 17 GM DAILY 05/23 999 AC 06/02 PO 0915 Prednisone 80 MG DAILY 06/02 1000 AC 06/02 PO 0915 Zinc Sulfate 220 MG DAILY 05/29 999 AC 06/02 PO 0915 Results Last 24 Hours of Lab Results: Laboratory Tests 06/03 06/03 0525 0400 Blood Gas pH (7.35 - 7.45 PH) 7.49 H pCO2 (35 - 45 TORR) 34 L pO2 (80 - 100 TORR) 68 L HCO3 (21 - 28 MEQ/L) 25 ABG O2 Sat (Measured) (>96.0 %) 92.0 L P-50 (Temp Corrected) Y Carboxyhemoglobin (1.5 - 5.0 %) 1.0 L O2 Concentration % 40% Temperature (97.0 - 100.0 FARH) 98.8 Respiration Rate (BPM) 12 O2 Delivery Method ESPRIT Vent Mode AC Expiratory Pressure (CMH2O/P) 5 Tidal Volume (CC) 500 Chemistry Sodium (137 - 145 mmol/L) 145 Potassium (3.5 - 5.1 mmol/L) 3.9 Chloride (98 - 107 mmol/L) 100 Carbon Dioxide (22 - 30 mmol/L) 28 Anion Gap (5 - 16) 17 H BUN (7 - 17 mg/dL) 67 H Creatinine (0.5 - 1.0 mg/dL) 1.3 H Estimated GFR (>60 ml/min) 39 L Glucose (65 - 99 mg/dL) 181 H Calcium (8.4 - 10.2 mg/dL) 8.7 Phosphorus (2.5 - 4.5 mg/dL) 3.3 Magnesium (1.6 - 2.3 mg/dL) 2.0 Total Bilirubin (0.2 - 1.3 mg/dL) 0.8 AST (14 - 36 U/L) 14 ALT (9 - 52 U/L) 26 Albumin (3.5 - 5.0 g/dL) 3.6 Coagulation PT (9.4 - 12.5 SEC) 16.4 H INR (0.90 - 1.19) 1.57 H APTT (25 - 37 SEC) 37 Fibrinogen Activity (200 - 393 MG/DL) 190 L Hematology CBC w Diff NO MAN DIFF REQ WBC (4.8 - 10.8 /CUMM) 4.4 L RBC (4.20 - 5.40 /CUMM) 2.62 L Hgb (12.0 - 16.0 G/DL) 7.7 L Hct (37 - 47 %) 23.8 L MCV (81.0 - 99.0 FL) 91.0 MCH (27.0 - 31.0 PG) 29.4 MCHC (33.0 - 37.0 G/DL) 32.3 L RDW (11.5 - 14.5 %) 20.0 H Plt Count (130 - 400 /CUMM) 89 L MPV (7.4 - 10.4 FL) 10.6 H Gran % (42.2 - 75.2 %) 94.0 H Lymphocytes % (20.5 - 51.1 %) 4.3 L Monocytes % (1.7 - 9.3 %) 1.6 L Eosinophils % (0 - 5 %) 0 Basophils % (0.0 - 2.0 %) 0.1 Absolute Granulocytes (1.4 - 6.5 /CUMM) 4.1 Absolute Lymphocytes (1.2 - 3.4 /CUMM) 0.2 L Absolute Monocytes (0.10 - 0.60 /CUMM) 0.1 Absolute Eosinophils (0.0 - 0.7 /CUMM) 0 Absolute Basophils (0.0 - 0.2 /CUMM) 0 Retic Count (0.5 - 2.0 %) 2.14 H Miscellaneous Phlebotomy Draw Site LEFT RADIAL Assessment/Plan Assessment/Recommendations: Ms. Christine is an 86-year-old female with chronic ITP, HTN, HLD, [place] s/p PCI with stent, DM, and atrial fibrillation who presented with new hypoxia and cough. She has been having new cough a few days ago. CTA demonstrated moderate atelectasis/consolidation in the left upper and lower lobes. There was mild right base atelectasis and moderate left and [id number] right pleural effusions. She was briefly in shock and required Levophed. She was improving on Oxacillin. She is now on Zosyn given recent fever. She remains in atrial fibrillation with RVR. She is on metoprolol, amiodarone, and diltiazem. She remains intubated and on FiO2 of 40%. Blood work obtained today demonstrated progressive [place]ocyt[place]. [place] [address] [place]. Her antibiotic has been switched from Zosyn to ceftazidime. She is now off apixaban. She has not received any heparin products. DIC panel demonstrated elevated iron on and slightly decreased fibrinogen at 190. Thrombocytopenia is likely multifactorial including her underlying ITP and infectious etiology. She is currently back on prednisone 80 mg daily. Her anemia is multifactorial and likely due to chronic disease. Reticulocyte count is low for the degree of anemia. This suggest a hypoproliferative anemia. This is likely secondary to the chronic disease. Her creatinine has been trending upward. This may be related to her diuresis. For now, she will be monitor and no additional intervention required at the moment Chronic ITP: - continue prednisone 80 mg daily - monitor for worsening DIC Anemia: - monitor for bleeding - may consider ERMA in the future - recommend conservative transfusion strategy Acute hypoxic respiratory failure: - continue management as per ICU - antibiotics as per primary and ID Atrial fibrillation with RVR: -cardiology following -currently receiving apixaban, amiodarone, diltiazem, metoprolol Please call [phone] with any questions or concerns. Problem List: 1. Pneumonia 2. Atrial fibrillation with RVR 3. Chronic anemia 4. Thrombocytopenia
--- NOTE | 2017-06-03 10:20 | PN- Infect Dx ---
Subjective Subjective: Afebrile on steroids. She offers no complaints Objective Last 24 Hrs of Vital Signs/I&O Vital Signs Date Time Temp Pulse Resp B/P B/P Pulse O2 O2 Flow FiO2 Mean Ox Delivery Rate 06/03 0850 40 06/03 0644 40 06/03 0636 117 107/64 06/03 0400 40 06/03 0400 96 Ventilator 40% 06/03 0142 40 06/03 0009 96 Ventilator 40% 06/03 0009 99.2 104 16 106/54 96 Ventilator 40% 06/02 2345 114 111/70 06/02 2236 40 06/02 2114 124 87/60 06/02 2114 124 136/74 06/02 2000 92 Ventilator 40% 06/02 1905 40 06/02 1740 142 06/02 1655 40 06/02 1600 98.8 133 22 102/60 96 Ventilator 40% 06/02 1600 96 Ventilator 40% 06/02 1412 40 06/02 1200 93 Ventilator 40% 06/02 1200 98.8 111 17 120/58 93 Ventilator 40% 06/02 1115 108 119/70 Intake & Output 06/03 1600 06/03 0800 06/03 0000 Intake Total 1020 933 Output Total 450 400 Balance 570 533 Intake, IV 120 Intake, Other 200 Intake, Tube 520 413 Feeding Intake, Tube 300 400 Irrigant Number 2 1 Bowel Movements Output, Urine 450 400 Patient 280 lb Weight Physical Exam Other Physical Findings: She appears comfortable on the ventilator in no acute distress Lungs scattered rhonchi bilaterally Heart regular rhythm with no murmur Extremities chronic venous stasis changes both lower extremities; PICC in the right upper extremity with no inflammation at the site Faust catheter remains in place Results Last 24 Hours of Lab Results: Laboratory Tests 06/03 06/03 0525 0400 Blood Gas pH (7.35 - 7.45 PH) 7.49 H pCO2 (35 - 45 TORR) 34 L pO2 (80 - 100 TORR) 68 L HCO3 (21 - 28 MEQ/L) 25 ABG O2 Sat (Measured) (>96.0 %) 92.0 L P-50 (Temp Corrected) Y Carboxyhemoglobin (1.5 - 5.0 %) 1.0 L O2 Concentration % 40% Temperature (97.0 - 100.0 FARH) 98.8 Respiration Rate (BPM) 12 O2 Delivery Method ESPRIT Vent Mode AC Expiratory Pressure (CMH2O/P) 5 Tidal Volume (CC) 500 Chemistry Sodium (137 - 145 mmol/L) 145 Potassium (3.5 - 5.1 mmol/L) 3.9 Chloride (98 - 107 mmol/L) 100 Carbon Dioxide (22 - 30 mmol/L) 28 Anion Gap (5 - 16) 17 H BUN (7 - 17 mg/dL) 67 H Creatinine (0.5 - 1.0 mg/dL) 1.3 H Estimated GFR (>60 ml/min) 39 L Glucose (65 - 99 mg/dL) 181 H Calcium (8.4 - 10.2 mg/dL) 8.7 Phosphorus (2.5 - 4.5 mg/dL) 3.3 Magnesium (1.6 - 2.3 mg/dL) 2.0 Total Bilirubin (0.2 - 1.3 mg/dL) 0.8 AST (14 - 36 U/L) 14 ALT (9 - 52 U/L) 26 Albumin (3.5 - 5.0 g/dL) 3.6 Coagulation PT (9.4 - 12.5 SEC) 16.4 H INR (0.90 - 1.19) 1.57 H APTT (25 - 37 SEC) 37 Fibrinogen Activity (200 - 393 MG/DL) 190 L Hematology CBC w Diff NO MAN DIFF REQ WBC (4.8 - 10.8 /CUMM) 4.4 L RBC (4.20 - 5.40 /CUMM) 2.62 L Hgb (12.0 - 16.0 G/DL) 7.7 L Hct (37 - 47 %) 23.8 L MCV (81.0 - 99.0 FL) 91.0 MCH (27.0 - 31.0 PG) 29.4 MCHC (33.0 - 37.0 G/DL) 32.3 L RDW (11.5 - 14.5 %) 20.0 H Plt Count (130 - 400 /CUMM) 89 L MPV (7.4 - 10.4 FL) 10.6 H Gran % (42.2 - 75.2 %) 94.0 H Lymphocytes % (20.5 - 51.1 %) 4.3 L Monocytes % (1.7 - 9.3 %) 1.6 L Eosinophils % (0 - 5 %) 0 Basophils % (0.0 - 2.0 %) 0.1 Absolute Granulocytes (1.4 - 6.5 /CUMM) 4.1 Absolute Lymphocytes (1.2 - 3.4 /CUMM) 0.2 L Absolute Monocytes (0.10 - 0.60 /CUMM) 0.1 Absolute Eosinophils (0.0 - 0.7 /CUMM) 0 Absolute Basophils (0.0 - 0.2 /CUMM) 0 Retic Count (0.5 - 2.0 %) 2.14 H Miscellaneous Phlebotomy Draw Site LEFT RADIAL Last 24 Hours of Silvano Results: Blood cultures 2 June 01 negative Recent Imaging Studies: Chest x-ray June 03, personally reviewed, reveals increased haziness over the entire right hemithorax Assessment/Plan Impression: Stable, with temperatures and white blood cell count normal, now on Ceftazidime Day 2 of treatment for Pseudomonas, isolated from her recent sputum culture, in the setting of a new fever and increased white blood cell count (though only to 10,000) with increased densities on chest x-ray. Her chest x-ray from today reveals a new haziness on the right, suggestive of fluid. Her platelet count has decreased, presumably secondary to the new infectious process in this patient with chronic ITP. Suggestion: 1. Further management of her fluid status per Cardiology 2. Continue Ceftazidime
[2017-06-03 12:00] VITALS: BP 120/72
--- NOTE | 2017-06-03 12:57 | ULTRASOUND REPORT ---
EXAMINATION: US TRIPLEX UPPER EXTREMITY, RIGHT CLINICAL INFORMATION: Right upper extremity swelling with PICC. COMPARISON: Bilateral upper extremity venous Doppler 05/22/2017 TECHNIQUE: Grayscale, color and Doppler ultrasound of the deep veins of the right upper extremity were performed. FINDINGS: The right internal jugular, subclavian and axillary veins demonstrate normal color Doppler flow suggesting patency. A PICC is visualized within the axillary and subclavian veins. The right brachial and basilic veins are easily compressible and demonstrate normal color Doppler flow suggesting patency. The right cephalic vein is easily compressible suggesting patency. IMPRESSION: No thrombus identified within the veins of the right upper extremity.
[2017-06-03 16:00] VITALS: BP 112/58
[2017-06-04] VITALS: BP 108/52
[2017-06-04 04:00] VITALS: BP 120/78
[2017-06-04 04:31] LABS: ABSOLUTE BASOPHIL COUNT 0 /CUMM (0.0-0.2); ABSOLUTE EOSINOPHIL COUNT 0 /CUMM (0.0-0.7); ABSOLUTE GRANULOCYTE CT 3.1 /CUMM (1.4-6.5); ABSOLUTE LYMPH COUNT 0.2 /CUMM (1.2-3.4); ABSOLUTE MONOCYTE COUNT 0 /CUMM (0.10-0.60); BASOPHIL % 0 % (0.0-2.0); EOSINOPHIL % 0 % (0-5); GRANULOCYTE % 93.5 % (42.2-75.2); MEAN CORPUSCULAR HGB 29.3 PG (27.0-31.0); MEAN CORPUSCULAR VOLUME 91.5 FL (81.0-99.0); MEAN PLATELET VOLUME 10.9 FL (7.4-10.4); PLATELET COUNT 73 /CUMM (130-400); RBC DISTRIBUTION WIDTH 19.5 % (11.5-14.5); RED BLOOD CELL CT 2.62 /CUMM (4.20-5.40); WHITE BLOOD CELL COUNT 3.4 /CUMM (4.8-10.8)
[2017-06-04 04:41] LABS: PT 14.6 SEC (9.4-12.5); PTT 37 SEC (25-37)
--- NOTE | 2017-06-04 07:01 | PN- Resident CRCU ---
Jaron RAMOS,[facility] 06/04/17 0701: Subjective HPI/CRCU Issues: Atrial Fibrilliation Thrombocytopenia Acute Hypoxic Respiratory Failure 24 Hour Events: No acute events overnight. Her Plt continues to drop. While her Cr is stable, the BUN continues to trend high. Her stools are reportedly guiac negative. Discussed goals of care with family yesterday. The family is adamant to pursue everything currently. Dr Álvarez talked to the son as well this morning. Vent settings: Vt 352, RR 12, PIP 15, PEEP 5. Patient was seen and examined. She is awake. Denies any pain. Inquired specifically about abdominal pain with/without food which she denies at this time. Objective Vital Signs & I&O Last 8 Hrs of Vitals and I&O: . Exam General Appearance: no apparent distress, alert, awake, intubated Head: atraumatic, normal appearance Respiratory: normal breath sounds, chest non-tender, rhonchi Cardiovascular: tachycardia, irregularly irregular Gastrointestinal: soft, non-tender Extremities: edema of right upper and lower extremity Cranial Nerves: normal hearing Skin: intact Skin Temp/Moisture Exam: Warm/Dry Sepsis Skin Exam (color): Normal for Ethnicity Weaning Parameters NIF: 20 Minute Volume: 12.2 Resp rate: 36 Vt: 340 Heart Rate: 104 Weaning Schedule Start Time: 1845 Minute Volume: 11.8 Resp Rate: 38 Vt: 310 Heart Rate: 112 End Time: 1855 Minute Volume: 10.9 Resp Rate: 45 Vt: 240 Heart Rate: 130 Current Medications: Current Medications Sig/Ric Start time Last Medication Dose Route Stop Time Status Admin Acetaminophen 650 MG Q6P PRN 05/19 0300 AC PO Acetaminophen 1,000 MG Q6P PRN 05/19 0300 AC 05/31 IV 2009 Acetylcysteine 4 ML EVERY 4 HRS/AWAKE 06/02 1600 AC 06/04 INH 0853 Albumin Human 25 GM Q8H 05/24 0822 AC 06/04 IV 0817 Albuterol Sulfate 3 ML EVERY 4 HRS/AWAKE 05/30 0800 AC 06/04 INH 0853 Amiodarone HCl 200 MG DAILY 06/04 1000 AC 06/04 PO 0921 Amiodarone HCl 200 MG BID 06/02 2200 DC 06/03 PO 2129 Artificial Tears 2 GTT 4 TIMES/DAY PRN 05/30 0745 AC OPH Ascorbic Acid 500 MG DAILY 05/29 1000 AC 06/04 PO 0920 Ceftazidime 1,000 MG IQ8 06/02 1600 AC 06/04 IV 0817 Diltiazem HCl 60 MG Q6 06/02 1800 AC 06/04 PO 0613 Docusate Sodium 100 MG DAILY AC 05/23 0820 AC 06/04 PO 0613 Furosemide 100 MG Q20H 06/04 0800 AC 06/04 Sodium Chloride 100 ML IV 0913 Glycerin 2 SPRAY Q2P PRN 05/27 0800 AC PO Glycerin/Mineral Oil 1 PEDRITO TID PRN 05/24 1100 AC TOP Insulin Aspart 0 Q4H 05/21 1800 AC 06/04 SC 0612 Insulin Detemir 14 UNITS BID 06/04 1000 AC 06/04 SC 0922 Insulin Detemir 12 UNITS BID 06/03 1000 DC 06/03 SC 2128 Metoprolol Tartrate 100 MG BID 05/30 1000 AC 06/04 PO 0921 Multivitamins 1 TAB DAILY 05/29 1000 AC 06/04 PO 0920 Pantoprazole Sodium 40 MG BID 06/03 1000 AC 06/04 IV 0913 Polyethylene Glycol 17 GM DAILY 05/23 1000 AC 06/02 PO 0915 Prednisone 80 MG DAILY 06/02 1000 AC 06/04 PO 0920 Zinc Sulfate 220 MG DAILY 05/29 1000 AC 06/04 PO 0920 Impression/Plan Impression/Problem List Impression: 86 year old woman with past medical history of hypertension, hyperlipidemia, [place] s/p PCI with stent, diabetes mellitus, and restless leg syndrome, history of atrial fibrillation with anticoagulation on hold due to severe thrombocytopenia was sent in from extended care facility for hypoxia, leukocytosis and productive cough. She was admitted on telemetry floor and transfered to ICU after patient desaturated became unresponsive. Assessment and Plan: Acute hypoxic respiratory failure likely secondary to HCAP: * Her white count has normalized and she's been afebrile. Her repeat sputum culture is growing Pseudomonas sensitive to Ceftazidime. * Her CXR today shows evidence of pulmonary edema. She appears to have chronic left lower lobe collapse. * Antibiotics switched to Ceftazidime 1g q8. * Reintubated again on 05/28. * ID recs appreciated. * Continue mucomist BID nebs and aggressive pulmonary toilet. * Will continue diuresis with Lasix drip @5mg/hr. She has a rising BUN, which could be steroid induced. * Goals of care was discussed with family. They want to pursue everything for now. Atrial Fibrilliation: * Will continue metoprolol 100mg BID. * Decrease oral Amiodarone at 200mg QD. * Continue Cardizem 60mg q6. Can be decreased to 30mg if not tolerated by blood pressure. * Discontinued Elliquis 2.5mg BID as Plt count is falling. * Echo - Normal left ventricular ejection fraction visually estimated at > 60% . Immune Thrombocytopenia: * Her platelets have shown a decline past few days. Could be likely due to her reinfection. * Continue Prednisone again to 80mg. * Daily CBC * s/p 1 unit transfusion of platelets 05/22. 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 * Will continue to follow DIC panel. GARCÍA on CKD: /resolved * Cr 1.0 today. * Was likely contrast induced nephropathy initially. * Nephro recs appreciated. * Strict I&Os. Diabetes Mellitus: * Contineu tube feeds with Glucerna 1.2. Will increase volume of flush to correct hypernatremia. * Levemir 14mg BID * Insulin SS. Adjusted per Endo's recommendations. Lower Extremity Skin Changes: /resolved * Was evaluated by vascular surgery. Recommend no surgical intervention at this time. * Small ulcer on left/right foot base. Wound care notes appreciated. History of restless leg syndrome: * Sinemet was recently discontinued * Lyrica on hold currently. * Lubriderm to affected skin. DVT Prophylaxis: ALPS Code: Full Problem List: 1. A-fib Pain Ratin Tomorrow's Labs & Rationales: CBC, ICU bundle, DIC panel Plan DVT/Prophylaxis: Jordi Trujillo MD 06/04/17 1121: Attending MD Review Statement Attending Sign Off Attending Cosign Statement: I have: examined this patient, reviewed avalbl EMR data, personally reviewd images, discussd w/resident/PA/CARDIAC SPECIALIST, discussed mgmt plan w/ida, discussed mgmt plan w/CM, discussed mgmt plan w/pt, agreed w/resident/PA/CARDIAC SPECIALIST, amended to note. Other Findings: Jordi Lopez M.D. have examined this patient, reviewed available EMR data, personally reviewed images, discussed with resident/PA/CARDIAC SPECIALIST, discussed management plan with housestaff and nursing staff, discussed managment plan all of healthcare providers, discussed management plan with patient and/or family, agreed with resident/PA/CARDIAC SPECIALIST. The past history and parts of the chart have been autopopulated. Impression 86 year old woman resolved septic shock a.fib RVR acute hypoxemic respiratory failure GARCÍA improved Plan -cont mechanical ventilation -goals of care discussion -ID f/u - on ceftazadime -cardiology, ID f/u -f/u hematology recommendations, stress steroids can be tapered per heme -endocrinology appreciated -nephrology consultation appreciated -if no improvement will discuss option of trach early next week DVT prophylaxis at all times TTS 35 min
--- NOTE | 2017-06-04 07:28 | PN- Diabetes ---
Assessment/Plan Assessment: Patient is now reintubated. She is on a respirator and sedated. Her steroid dose is prednisone 80 mg once a day. Sputum culture is positive for pseudomonas. Patient's antibiotics have been adjusted. She is presently on 12 units of Levemir twice a day. Her tube feedingsis at 65 mL/h. She is also on every 4 hour NovoLog coverage. Most recent fingerstick blood sugars are 243 and 220. The patient's serum sodium is down to 141. Her creatinine has gone down to 1.0 with a BUN of 77.. She is receiving free water flushes via feeding tube. Plan: Patient's blood sugars continue to be elevated. Suggest increase Levemir to 14 units twice a day while on the tube feedings. Continue sliding scale NovoLog every 4 hours. Subjective Subjective: Intubated and sedated Objective Last 24 Hrs of Vital Signs/I&O Vital Signs Date Time Temp Pulse Resp B/P B/P Pulse O2 O2 Flow FiO2 Mean Ox Delivery Rate 06/04 0613 110 06/04 0400 96 Ventilator 40% 06/04 040 98.8 123 17 120/78 96 Ventilator 40% 06/04 0353 40 06/04 0223 40 06/04 0000 97 Ventilator 40% 06/04 0000 98.0 103 12 108/52 97 Ventilator 40% 06/03 2335 109 116/76 06/03 2232 40 06/03 2130 40 06/03 2129 129 107/60 06/03 2040 95 Ventilator 40% 06/03 1814 145 126/82 06/03 1658 40 06/03 1600 99.8 124 14 112/58 95 Ventilator 40% 06/03 1600 95 Ventilator 40% 06/03 1450 40 06/03 1200 94 Ventilator 40% 06/03 1200 97.7 94 17 120/72 94 Ventilator 40% 06/03 1133 40 06/03 1128 106 06/03 1014 123 110/54 06/03 0850 40 06/03 0800 99.5 103 16 120/62 94 Ventilator 40% 06/03 0800 94 Ventilator 40% Intake & Output 06/04 0800 06/04 0000 06/03 1600 Intake Total 1014 1270 1026 Output Total 400 350 400 Balance 614 920 626 Intake, IV 130 130 150 Intake, Tube 359 830 351 Feeding Intake, Tube 525 310 525 Irrigant Number 1 1 Bowel Movements Output, Urine 400 350 400 Patient 286 lb Weight Weight Bed scale Measurement Method Vital Signs Date Time Temp Pulse Resp B/P B/P Pulse O2 O2 Flow FiO2 Mean Ox Delivery Rate 06/04 0613 110 06/04 0400 96 Ventilator 40% 06/04 0400 98.8 123 17 120/78 96 Ventilator 40% 06/04 0353 40 06/04 0223 40 06/04 0000 97 Ventilator 40% 06/04 0000 98.0 103 12 108/52 97 Ventilator 40% 06/03 2335 109 116/76 06/03 2232 40 06/03 2130 40 06/03 2129 129 107/60 06/03 2040 95 Ventilator 40% 06/03 1814 145 126/82 06/03 1658 40 06/03 1600 99.8 124 14 112/58 95 Ventilator 40% 06/03 1600 95 Ventilator 40% 06/03 1450 40 06/03 1200 94 Ventilator 40% 06/03 1200 97.7 94 17 120/72 94 Ventilator 40% 06/03 1133 40 06/03 1128 106 06/03 1014 123 110/54 06/03 0850 40 06/03 0800 99.5 103 16 120/62 94 Ventilator 40% 06/03 0800 94 Ventilator 40% Intake & Output 06/04 0800 06/04 0000 06/03 1600 Intake Total 1014 1270 1026 Output Total 400 350 400 Balance 614 920 626 Intake, IV 130 130 150 Intake, Tube 359 830 351 Feeding Intake, Tube 525 310 525 Irrigant Number 1 1 Bowel Movements Output, Urine 400 350 400 Patient 286 lb Weight Weight Bed scale Measurement Method Physical Exam General Appearance: alert, awake, intubated Head: normal appearance Neck: normal inspection Respiratory: normal breath sounds Cardiovascular: regular rate/rhythm Current Medications: Current Medications Sig/Ric Start time Last Medication Dose Route Stop Time Status Admin Acetaminophen 650 MG Q6P PRN 05/19 299 AC PO Acetaminophen 1,000 MG Q6P PRN 05/19 299 AC 05/31 IV 2010 Acetylcysteine 4 ML EVERY 4 HRS/AWAKE 06/02 1600 AC 06/03 INH 211 Albumin Human 25 GM Q8H 05/24 0822 AC 06/03 IV 2335 Albuterol Sulfate 3 ML EVERY 4 HRS/AWAKE 05/30 0800 AC 06/03 INH 2115 Amiodarone HCl 200 MG BID 06/02 2200 AC 06/03 PO 2129 Artificial Tears 2 GTT 4 TIMES/DAY PRN 05/30 0745 AC OPH Ascorbic Acid 500 MG DAILY 05/29 1000 AC 06/03 PO 1012 Ceftazidime 1,000 MG IQ8 06/02 1600 AC 06/03 IV 2344 Diltiazem HCl 60 MG Q6 06/02 1800 AC 06/04 PO 0613 Docusate Sodium 100 MG DAILY AC 05/23 0820 AC 06/04 PO 0613 Glycerin 2 SPRAY Q2P PRN 05/27 0800 AC PO Glycerin/Mineral Oil 1 PEDRITO TID PRN 05/24 1100 AC TOP Insulin Aspart 0 Q4H 05/21 1800 AC 06/04 SC 0612 Insulin Detemir 12 UNITS BID 06/03 1000 AC 06/03 SC 2128 Insulin Detemir 10 UNITS BID 05/31 2200 DC 06/02 SC 2114 Metoprolol Tartrate 100 MG BID 05/30 1000 AC 06/03 PO 2129 Multivitamins 1 TAB DAILY 05/29 1000 AC 06/03 PO 1012 Pantoprazole Sodium 40 MG BID 06/03 1000 AC 06/03 IV 2129 Polyethylene Glycol 17 GM DAILY 05/23 1000 AC 06/02 PO 0915 Prednisone 80 MG DAILY 06/02 1000 AC 06/03 PO 1013 Zinc Sulfate 220 MG DAILY 05/29 1000 AC 06/03 PO 1015 Findings Pertinent Lab/Silvano Results: Laboratory Tests 06/04 0400 Chemistry Sodium (137 - 145 mmol/L) 141 Potassium (3.5 - 5.1 mmol/L) 3.8 Chloride (98 - 107 mmol/L) 97 L Carbon Dioxide (22 - 30 mmol/L) 28 Anion Gap (5 - 16) 15 BUN (7 - 17 mg/dL) 77 H Creatinine (0.5 - 1.0 mg/dL) 1.0 Estimated GFR (>60 ml/min) 53 L Glucose (65 - 99 mg/dL) 233 H Calcium (8.4 - 10.2 mg/dL) 8.6 Phosphorus (2.5 - 4.5 mg/dL) 3.7 Magnesium (1.6 - 2.3 mg/dL) 2.0 Total Bilirubin (0.2 - 1.3 mg/dL) 0.9 AST (14 - 36 U/L) 16 ALT (9 - 52 U/L) 20 Albumin (3.5 - 5.0 g/dL) 3.6 Coagulation PT (9.4 - 12.5 SEC) 14.6 H INR (0.90 - 1.19) 1.40 H APTT (25 - 37 SEC) 37 Fibrinogen Activity (200 - 393 MG/DL) 178 L Hematology CBC w Diff MAN DIFF ORDERED WBC (4.8 - 10.8 /CUMM) 3.4 L RBC (4.20 - 5.40 /CUMM) 2.62 L Hgb (12.0 - 16.0 G/DL) 7.7 L Hct (37 - 47 %) 24.0 L MCV (81.0 - 99.0 FL) 91.5 MCH (27.0 - 31.0 PG) 29.3 MCHC (33.0 - 37.0 G/DL) 32.0 L RDW (11.5 - 14.5 %) 19.5 H Plt Count (130 - 400 /CUMM) 73 L MPV (7.4 - 10.4 FL) 10.9 H Gran % (42.2 - 75.2 %) 93.5 H Lymphocytes % (20.5 - 51.1 %) 5.0 L Monocytes % (1.7 - 9.3 %) 1.5 L Eosinophils % (0 - 5 %) 0 Basophils % (0.0 - 2.0 %) 0 Absolute Granulocytes (1.4 - 6.5 /CUMM) 3.1 Segmented Neutrophils (42.2 - 75.2 %) 97 H Absolute Lymphocytes (1.2 - 3.4 /CUMM) 0.2 L Lymphocytes (20.5 - 51.1 %) 2 L Monocytes (1.7 - 9.3 %) 1 L Absolute Monocytes (0.10 - 0.60 /CUMM) 0 L Absolute Eosinophils (0.0 - 0.7 /CUMM) 0 Absolute Basophils (0.0 - 0.2 /CUMM) 0 Platelet Estimate (ADEQUATE) DECREASED Polychromasia 1+ Hypochromic-Microcytic 1+ Poikilocytosis 1+ Basophilic Stippling SLIGHT Ovalocytes 1+ Stomatocytes FEW Other Body Source Fld Total RBCs Counted (%) 100
--- NOTE | 2017-06-04 07:39 | PN- Cardiology ---
Subjective Subjective: Patient is awake, remains intubated Objective Vital Signs and I&Os Vital Signs Date Time Temp Pulse Resp B/P B/P Pulse O2 O2 Flow FiO2 Mean Ox Delivery Rate 06/04 0613 110 06/04 0400 96 Ventilator 40% 06/04 0400 98.8 123 17 120/78 96 Ventilator 40% 06/04 0353 40 06/04 0223 40 06/04 0000 97 Ventilator 40% 06/04 0000 98.0 103 12 108/52 97 Ventilator 40% 06/03 2335 109 116/76 06/03 2232 40 06/03 2130 40 06/03 2129 129 107/60 06/03 2040 95 Ventilator 40% 06/03 1814 145 126/82 06/03 1658 40 06/03 1600 99.8 124 14 112/58 95 Ventilator 40% 06/03 1600 95 Ventilator 40% 06/03 1450 40 06/03 1200 94 Ventilator 40% 06/03 1200 97.7 94 17 120/72 94 Ventilator 40% 06/03 1133 40 06/03 1128 106 06/03 1014 123 110/54 06/03 0850 40 06/03 0800 99.5 103 16 120/62 94 Ventilator 40% 06/03 0800 94 Ventilator 40% Intake & Output 06/04 0800 06/04 0000 06/03 1600 06/03 0800 06/03 0000 06/02 1600 Intake Total 1014 1270 1026 3988 770 1044 Output Total 400 350 400 043 491 3367 Balance 614 920 626 570 533 -431 Intake, IV 130 130 150 120 240 Intake, Other 200 Intake, Tube 359 830 351 520 413 479 Feeding Intake, Tube 525 310 525 300 400 450 Irrigant Number 1 1 2 1 1 Bowel Movements Output, Urine 400 350 400 155 431 3651 Patient 286 lb 280 lb Weight Weight Bed scale Measurement Method Physical Exam: HEENT-PERRLA No acute distress Neck-unable to assess JVP, no bruits Lungs-decreased BS at both bases,few rhonchi Heart-S1S2 irregular Abdomen-soft, obese, not tender, BS+, no organomegaly Extr-dermatitis, 1-2+ RUE edema, trace legs edema diminished distal pulses Neuro-non focal Current Medications: Current Medications Sig/Ric Start time Last Medication Dose Route Stop Time Status Admin Acetaminophen 650 MG Q6P PRN 05/19 0300 AC PO Acetaminophen 1,000 MG Q6P PRN 05/19 0300 AC 05/31 IV 2010 Acetylcysteine 4 ML EVERY 4 HRS/AWAKE 06/02 1600 AC 06/03 INH 2115 Albumin Human 25 GM Q8H 05/24 0822 AC 06/03 IV 2335 Albuterol Sulfate 3 ML EVERY 4 HRS/AWAKE 05/30 0800 AC 06/03 INH 2115 Amiodarone HCl 200 MG BID 06/02 2200 AC 06/03 PO 2129 Artificial Tears 2 GTT 4 TIMES/DAY PRN 05/30 0745 AC OPH Ascorbic Acid 500 MG DAILY 05/29 1000 AC 06/03 PO 1012 Ceftazidime 1,000 MG IQ8 06/02 1600 AC 06/03 IV 2344 Diltiazem HCl 60 MG Q6 06/02 1800 AC 06/04 PO 0613 Docusate Sodium 100 MG DAILY AC 05/23 0820 AC 06/04 PO 0613 Glycerin 2 SPRAY Q2P PRN 05/27 0800 AC PO Glycerin/Mineral Oil 1 PEDRITO TID PRN 05/24 1100 AC TOP Insulin Aspart 0 Q4H 05/21 1800 AC 06/04 SC 0612 Insulin Detemir 12 UNITS BID 06/03 1000 AC 06/03 SC 2128 Insulin Detemir 10 UNITS BID 05/31 2200 DC 06/02 OR 2114 Metoprolol Tartrate 100 MG BID 05/30 1000 AC 06/03 PO 2129 Multivitamins 1 TAB DAILY 05/29 1000 AC 06/03 PO 1012 Pantoprazole Sodium 40 MG BID 06/03 1000 AC 06/03 IV 2129 Polyethylene Glycol 17 GM DAILY 05/23 1000 AC 06/02 PO 0915 Prednisone 80 MG DAILY 06/02 1000 AC 06/03 PO 1013 Zinc Sulfate 220 MG DAILY 05/29 1000 AC 06/03 PO 1015 Results Last 48 Hrs of Labs/Mics: Laboratory Tests 06/04/17 0400: Anion Gap 15, Estimated GFR 53 L, Glucose 233 H, Calcium 8.6, Phosphorus 3.7, Magnesium 2.0, Total Bilirubin 0.9, AST 16, ALT 20, Albumin 3.6, PT 14.6 H, INR 1.40 H, APTT 37, Fibrinogen Activity 178 L, CBC w Diff MAN DIFF ORDERED, RBC 2.62 L, MCV 91.5, MCH 29.3, MCHC 32.0 L, RDW 19.5 H, MPV 10.9 H, Gran % 93.5 H, Lymphocytes % 5.0 L, Monocytes % 1.5 L, Eosinophils % 0, Basophils % 0, Absolute Granulocytes 3.1, Segmented Neutrophils 97 H, Absolute Lymphocytes 0.2 L, Lymphocytes 2 L, Monocytes 1 L, Absolute Monocytes 0 L, Absolute Eosinophils 0, Absolute Basophils 0, Platelet Estimate DECREASED, Polychromasia 1+, Hypochromic-Microcytic 1+, Poikilocytosis 1+, Basophilic Stippling SLIGHT, Ovalocytes 1+, Stomatocytes FEW, Fld Total RBCs Counted 100 06/03/17 0525: pH 7.49 H, pCO2 34 L, pO2 68 L, HCO3 25, ABG O2 Sat (Measured) 92.0 L, P-50 (Temp Corrected) Y, Carboxyhemoglobin 1.0 L, O2 Concentration % 40%, Temperature 98.8, Respiration Rate 12, O2 Delivery Method ESPRIT, Vent Mode AC, Expiratory Pressure 5, Tidal Volume 500, Phlebotomy Draw Site LEFT RADIAL 06/03/17 0400: Anion Gap 17 H, Estimated GFR 39 L, Glucose 181 H, Calcium 8.7, Phosphorus 3.3, Magnesium 2.0, Total Bilirubin 0.8, AST 14, ALT 26, Albumin 3.6, PT 16.4 H , INR 1.57 H, APTT 37, Fibrinogen Activity 190 L, CBC w Diff NO MAN DIFF REQ, RBC 2.62 L, MCV 91.0, MCH 29.4, MCHC 32.3 L, RDW 20.0 H, MPV 10.6 H, Gran % 94.0 H, Lymphocytes % 4.3 L, Monocytes % 1.6 L, Eosinophils % 0, Basophils % 0.1, Absolute Granulocytes 4.1, Absolute Lymphocytes 0.2 L, Absolute Monocytes 0.1, Absolute Eosinophils 0, Absolute Basophils 0, Retic Count 2.14 H Recent Imaging Studies: CXR-increased right hemithorax opacification Assessment/Plan Assessment/Plan 1. Acute hypoxic respiratory failure/septic shock secondary to MSSA PNA. Now reintubated, recurrent pneumonia-sputum positive for pseudomonas-currently on ceftazidime. CXR yesterday worse-more right hemithorax opacification-?infiltrate,?pulmonary edema, ?amiodarone induced pneumonitis Patient has been in positive fluid balance, weight increased by 13 lbs past 2 days. 2. atrial fibrillation, on oral cardizem, amiodarone, metoprolol, rate acceptable 3. GARCÍA-increased BUN, creatinine back to normal, stool reportedly quiac negative , HCT now remains stable 4.Thrombocytopenia/ITP, platelets dropping with reinfection 5. Anemia- stable Plan: start lasix drip 5 mg/hr iv and increase based non urine output negative fluid balance reduce free water flushes decrease amiodarone to 200 mg qd if hypotension again an issue-decrease cardizem to 30 mg qid if rate remains stable and infiltrates unchanged despite diuresis, will stop Amiodarone Continue telemetry? Yes
[2017-06-04 08:00] VITALS: BP 112/70
--- NOTE | 2017-06-04 08:10 | RADIOLOGY REPORT ---
EXAMINATION: XR PORTABLE CHEST CLINICAL INFORMATION: Pneumonia, confirmation of lines and tubes. COMPARISON: Portable chest x-ray dated 06/03/2017 at 5:27 AM. TECHNIQUE: Portable frontal view of the chest was obtained. FINDINGS: Lines and tubes: The endotracheal tube is in satisfactory position located approximately 4 cm proximal to the level of the krystal, stable compared to the prior study. The NG tube is also unchanged with the distal and extending below the diaphragm. The patient is substantially rotated although similar compared to the prior study. There is uniformly increased density throughout the right hemithorax, as well as nonvisualization of the left hemidiaphragm. Increased density in the superior lateral aspect of the left upper lung is present with aeration of the left lung apex. IMPRESSION: 1. Stable tubes including endotracheal tube and NG tube. 2. Pulmonary edema, similar to the previous study. The discrete densities in left upper lung are not as well visualized as on the prior study due to patient positioning (rotation).
--- NOTE | 2017-06-04 08:11 | PN- Hematology ---
Subjective Subjective: She is alert and oriented. She is unable to communicate secondary to intubation. She has not had any fever or chills. She continues to be tachycardic. Review of Systems: Limited secondary to intubation. She does deny any pain. Objective Vital Signs and I&Os Vital Signs Date Time Temp Pulse Resp B/P B/P Pulse O2 O2 Flow FiO2 Mean Ox Delivery Rate 06/04 0613 110 06/04 0400 96 Ventilator 40% 06/04 0400 98.8 123 17 120/78 96 Ventilator 40% 06/04 0353 40 06/04 0223 40 06/04 0000 97 Ventilator 40% 06/04 0000 98.0 103 12 108/52 97 Ventilator 40% 06/03 2335 109 116/76 06/03 2232 40 06/03 2130 40 06/03 2129 129 107/60 06/03 2040 95 Ventilator 40% 06/03 1814 145 126/82 06/03 1658 40 06/03 1600 99.8 124 14 112/58 95 Ventilator 40% 06/03 1600 95 Ventilator 40% 06/03 1450 40 06/03 1200 94 Ventilator 40% 06/03 1200 97.7 94 17 120/72 94 Ventilator 40% 06/03 1133 40 06/03 1128 106 06/03 1014 123 110/54 06/03 0850 40 Intake & Output 06/04 1600 06/04 0800 06/04 0000 06/03 1600 06/03 0806/03 0000 Intake Total 1014 1270 1026 1020 933 Output Total 400 350 400 450 400 Balance 614 920 626 570 533 Intake, IV 130 130 150 120 Intake, Other 200 Intake, Tube 359 830 351 520 413 Feeding Intake, Tube 525 310 525 300 400 Irrigant Number 1 1 2 1 Bowel Movements Output, Urine 400 350 400 450 400 Patient 129.727 kg 127.006 kg Weight Weight Bed scale Measurement Method Physical Exam: General Appearance: awake, comfortable, intubated Ears, Nose, Throat: ET tube in place Respiratory: chest non-tender, rhonchi Cardiovascular: tachycardia, irregularly irregular Abdomen: normal bowel sounds, soft, non-tender Extremities: bilateral upper extremity (trace LUE, 2+ RUE), ecchymoses in upper extremities, hyperpigmented lower extremities, RUE with PICC line Neurologic/Psychiatric: awake, follows commands, intubated Current Medications: Current Medications Sig/Ric Start time Last Medication Dose Route Stop Time Status Admin Acetaminophen 650 MG Q6P PRN 05/19 0300 AC PO Acetaminophen 1,000 MG Q6P PRN 05/19 0300 AC 05/31 IV 2010 Acetylcysteine 4 ML EVERY 4 HRS/AWAKE 06/02 1600 AC 06/03 INH 2115 Albumin Human 25 GM Q8H 05/24 0822 AC 06/03 IV 2335 Albuterol Sulfate 3 ML EVERY 4 HRS/AWAKE 05/30 0800 AC 06/03 INH 2115 Amiodarone HCl 200 MG DAILY 06/04 1000 AC PO Amiodarone HCl 200 MG BID 06/02 2200 DC 06/03 PO 212 Artificial Tears 2 GTT 4 TIMES/DAY PRN 05/30 0745 AC OPH Ascorbic Acid 500 MG DAILY 05/29 1000 AC 06/03 PO 1012 Ceftazidime 1,000 MG IQ8 06/02 1600 AC 06/03 IV 2344 Diltiazem HCl 60 MG Q6 06/02 1800 AC 06/04 PO 0613 Docusate Sodium 100 MG DAILY AC 05/23 0820 AC 06/04 PO 0613 Furosemide 100 MG Q20H 06/04 0800 AC Sodium Chloride 100 ML IV Glycerin 2 SPRAY Q2P PRN 05/27 0800 AC PO Glycerin/Mineral Oil 1 PEDRITO TID PRN 05/24 1100 AC TOP Insulin Aspart 0 Q4H 05/21 1800 AC 06/04 SC 0612 Insulin Detemir 12 UNITS BID 06/03 1000 AC 06/03 SC 2128 Insulin Detemir 10 UNITS BID 05/31 2200 DC 06/02 SC 211 Metoprolol Tartrate 100 MG BID 05/30 1000 AC 06/03 PO 2129 Multivitamins 1 TAB DAILY 05/29 1000 AC 06/03 PO 1012 Pantoprazole Sodium 40 MG BID 06/03 1000 AC 06/03 IV 2129 Polyethylene Glycol 17 GM DAILY 05/23 1000 AC 06/02 PO 0915 Prednisone 80 MG DAILY 06/02 1000 AC 06/03 PO 1013 Zinc Sulfate 220 MG DAILY 05/29 1000 AC 06/03 PO 1015 Results Last 24 Hours of Lab Results: Laboratory Tests 06/04 0400 Chemistry Sodium (137 - 145 mmol/L) 141 Potassium (3.5 - 5.1 mmol/L) 3.8 Chloride (98 - 107 mmol/L) 97 L Carbon Dioxide (22 - 30 mmol/L) 28 Anion Gap (5 - 16) 15 BUN (7 - 17 mg/dL) 77 H Creatinine (0.5 - 1.0 mg/dL) 1.0 Estimated GFR (>60 ml/min) 53 L Glucose (65 - 99 mg/dL) 233 H Calcium (8.4 - 10.2 mg/dL) 8.6 Phosphorus (2.5 - 4.5 mg/dL) 3.7 Magnesium (1.6 - 2.3 mg/dL) 2.0 Total Bilirubin (0.2 - 1.3 mg/dL) 0.9 AST (14 - 36 U/L) 16 ALT (9 - 52 U/L) 20 Albumin (3.5 - 5.0 g/dL) 3.6 Coagulation PT (9.4 - 12.5 SEC) 14.6 H INR (0.90 - 1.19) 1.40 H APTT (25 - 37 SEC) 37 Fibrinogen Activity (200 - 393 MG/DL) 178 L Hematology CBC w Diff MAN DIFF ORDERED WBC (4.8 - 10.8 /CUMM) 3.4 L RBC (4.20 - 5.40 /CUMM) 2.62 L Hgb (12.0 - 16.0 G/DL) 7.7 L Hct (37 - 47 %) 24.0 L MCV (81.0 - 99.0 FL) 91.5 MCH (27.0 - 31.0 PG) 29.3 MCHC (33.0 - 37.0 G/DL) 32.0 L RDW (11.5 - 14.5 %) 19.5 H Plt Count (130 - 400 /CUMM) 73 L MPV (7.4 - 10.4 FL) 10.9 H Gran % (42.2 - 75.2 %) 93.5 H Lymphocytes % (20.5 - 51.1 %) 5.0 L Monocytes % (1.7 - 9.3 %) 1.5 L Eosinophils % (0 - 5 %) 0 Basophils % (0.0 - 2.0 %) 0 Absolute Granulocytes (1.4 - 6.5 /CUMM) 3.1 Segmented Neutrophils (42.2 - 75.2 %) 97 H Absolute Lymphocytes (1.2 - 3.4 /CUMM) 0.2 L Lymphocytes (20.5 - 51.1 %) 2 L Monocytes (1.7 - 9.3 %) 1 L Absolute Monocytes (0.10 - 0.60 /CUMM) 0 L Absolute Eosinophils (0.0 - 0.7 /CUMM) 0 Absolute Basophils (0.0 - 0.2 /CUMM) 0 Platelet Estimate (ADEQUATE) DECREASED Polychromasia 1+ Hypochromic-Microcytic 1+ Poikilocytosis 1+ Basophilic Stippling SLIGHT Ovalocytes 1+ Stomatocytes FEW Other Body Source Fld Total RBCs Counted (%) 100 Recent Imaging Studies: US of RUE 06/03/2017: The right internal jugular, subclavian and axillary veins demonstrate normal color Doppler flow suggesting patency. A PICC is visualized within the axillary and subclavian veins. The right brachial and basilic veins are easily compressible and demonstrate normal color Doppler flow suggesting patency. The right cephalic vein is easily compressible suggesting patency. Assessment/Plan Assessment/Recommendations: Ms. Christine is an 86-year-old female with chronic ITP, HTN, HLD, VT s/p PCI with stent, DM, and atrial fibrillation who presented with new hypoxia and cough. She has been having new cough a few days ago. CTA demonstrated moderate atelectasis/consolidation in the left upper and lower lobes. There was mild right base atelectasis and moderate left and [id number] right pleural effusions. She was briefly in shock and required Levophed. She was improving on Oxacillin. She is now on Zosyn given recent fever. She remains in atrial fibrillation with RVR. She is on metoprolol, amiodarone, and diltiazem. She remains intubated and on FiO2 of 40%. She continues have progressive worsening thrombocytopenia along with leukopenia. DIC panel demonstrates slightly worsening fibrinogen. She is currently on prednisone 80 mg daily. It is not completely clear that her underlying process is secondary to ITP. Leukopenia suggests another process. Anemia has been stable. Infectious versus drug-induced are likely etiologies. She is currently on cefazolin for antibiotic coverage. Creatinine has been improved. For now, it is unclear any intervention is needed. Pancytopenia is likely multifactorial in nature. Pancytopenia: -Continue pencil 80 mg daily -Monitor DIC -Monitor for bleeding -Consider ERMA in the future -Continue to hold apixaban Acute hypoxic respiratory failure: -Management as per primary ICU team -Antibiotics as per primary and infectious disease Atrial fibrillation with RVR: -Management as per cardiology -currently receiving apixaban, amiodarone, diltiazem, metoprolol Please call [phone] with any questions or concerns. Problem List: 1. Pancytopenia 2. Pneumonia 3. Atrial fibrillation with RVR
--- NOTE | 2017-06-04 12:00 | PN- Infect Dx ---
Subjective Subjective: Afebrile on steroids. She offers no complaints. Objective Last 24 Hrs of Vital Signs/I&O Vital Signs Date Time Temp Pulse Resp B/P B/P Pulse O2 O2 Flow FiO2 Mean Ox Delivery Rate 06/04 1146 98.0 118 18 111/70 06/04 0921 98.0 131 19 155/80 06/04 0921 98.0 131 19 155/80 06/04 0908 40 06/04 0800 96 Ventilator 40% 06/04 0800 98.0 118 19 112/70 96 Ventilator 40% 06/04 0613 110 06/04 0400 96 Ventilator 40% 06/04 0400 98.8 123 17 120/78 96 Ventilator 40% 06/04 0353 40 06/04 0223 40 06/04 0000 97 Ventilator 40% 06/04 0000 98.0 103 12 108/52 97 Ventilator 40% 06/03 2335 109 116/76 06/03 2232 40 06/03 2130 40 06/03 2129 129 107/60 06/03 2040 95 Ventilator 40% 06/03 1814 145 126/82 06/03 1658 40 06/03 1600 99.8 124 14 112/58 95 Ventilator 40% 06/03 1600 95 Ventilator 40% 06/03 1450 40 06/03 1200 94 Ventilator 40% 06/03 1200 97.7 94 17 120/72 94 Ventilator 40% Intake & Output 06/04 1600 06/04 0800 06/04 0000 Intake Total 1014 1270 Output Total 400 350 Balance 614 920 Intake, IV 130 130 Intake, Tube 359 830 Feeding Intake, Tube 525 310 Irrigant Number 1 Bowel Movements Output, Urine 400 350 Patient 286 lb Weight Weight Bed scale Measurement Method Physical Exam Other Physical Findings: She appears comfortable on the ventilator in no acute distress Lungs are clear Heart regular rhythm with no murmur Extremities chronic venous stasis changes both lower extremities; PICC in the right upper extremity with no inflammation at the site Faust catheter remains in place Results Last 24 Hours of Lab Results: Laboratory Tests 06/04 399 Chemistry Sodium (137 - 145 mmol/L) 141 Potassium (3.5 - 5.1 mmol/L) 3.8 Chloride (98 - 107 mmol/L) 97 L Carbon Dioxide (22 - 30 mmol/L) 28 Anion Gap (5 - 16) 15 BUN (7 - 17 mg/dL) 77 H Creatinine (0.5 - 1.0 mg/dL) 1.0 Estimated GFR (>60 ml/min) 53 L Glucose (65 - 99 mg/dL) 233 H Calcium (8.4 - 10.2 mg/dL) 8.6 Phosphorus (2.5 - 4.5 mg/dL) 3.7 Magnesium (1.6 - 2.3 mg/dL) 2.0 Total Bilirubin (0.2 - 1.3 mg/dL) 0.9 AST (14 - 36 U/L) 16 ALT (9 - 52 U/L) 20 Albumin (3.5 - 5.0 g/dL) 3.6 Coagulation PT (9.4 - 12.5 SEC) 14.6 H INR (0.90 - 1.19) 1.40 H APTT (25 - 37 SEC) 37 Fibrinogen Activity (200 - 393 MG/DL) 178 L Hematology CBC w Diff MAN DIFF ORDERED WBC (4.8 - 10.8 /CUMM) 3.4 L RBC (4.20 - 5.40 /CUMM) 2.62 L Hgb (12.0 - 16.0 G/DL) 7.7 L Hct (37 - 47 %) 24.0 L MCV (81.0 - 99.0 FL) 91.5 MCH (27.0 - 31.0 PG) 29.3 MCHC (33.0 - 37.0 G/DL) 32.0 L RDW (11.5 - 14.5 %) 19.5 H Plt Count (130 - 400 /CUMM) 73 L MPV (7.4 - 10.4 FL) 10.9 H Gran % (42.2 - 75.2 %) 93.5 H Lymphocytes % (20.5 - 51.1 %) 5.0 L Monocytes % (1.7 - 9.3 %) 1.5 L Eosinophils % (0 - 5 %) 0 Basophils % (0.0 - 2.0 %) 0 Absolute Granulocytes (1.4 - 6.5 /CUMM) 3.1 Segmented Neutrophils (42.2 - 75.2 %) 97 H Absolute Lymphocytes (1.2 - 3.4 /CUMM) 0.2 L Lymphocytes (20.5 - 51.1 %) 2 L Monocytes (1.7 - 9.3 %) 1 L Absolute Monocytes (0.10 - 0.60 /CUMM) 0 L Absolute Eosinophils (0.0 - 0.7 /CUMM) 0 Absolute Basophils (0.0 - 0.2 /CUMM) 0 Platelet Estimate (ADEQUATE) DECREASED Polychromasia 1+ Hypochromic-Microcytic 1+ Poikilocytosis 1+ Basophilic Stippling SLIGHT Ovalocytes 1+ Stomatocytes FEW Other Body Source Fld Total RBCs Counted (%) 100 Last 24 Hours of Silvano Results: Blood cultures 2 June 01 negative Recent Imaging Studies: Chest x-ray June 04, personally reviewed, reveals increased density throughout the right hemithorax Assessment/Plan Impression: Stable, with temperatures and white blood cell count remaining normal, on Ceftazidime Day 3 of treatment for Pseudomonas, isolated from her recent sputum culture, in the setting of a new fever and increased white blood cell count ( though only to 10,000) with increased densities on chest x-ray. Her chest x-ray now continues to reveal increased haziness on the right, suggestive of fluid, and she is on a Lasix drip. Her platelet count continues to decrease, presumably secondary to the new infectious process in the setting of chronic ITP. Suggestion: 1. Further management of her fluid status per Cardiology 2. Continue Ceftazidime
[2017-06-04 16:00] VITALS: BP 120/70
[2017-06-05] VITALS: BP 110/70
[2017-06-05 05:13] LABS: ABSOLUTE BASOPHIL COUNT 0 /CUMM (0.0-0.2); ABSOLUTE EOSINOPHIL COUNT 0 /CUMM (0.0-0.7); ABSOLUTE GRANULOCYTE CT 3.3 /CUMM (1.4-6.5); ABSOLUTE LYMPH COUNT 0.2 /CUMM (1.2-3.4); ABSOLUTE MONOCYTE COUNT 0 /CUMM (0.10-0.60); BASOPHIL % 0 % (0.0-2.0); EOSINOPHIL % 0 % (0-5); MEAN CORPUSCULAR HGB 29.7 PG (27.0-31.0); MEAN CORPUSCULAR HGB CONC 32.5 G/DL (33.0-37.0); MEAN CORPUSCULAR VOLUME 91.3 FL (81.0-99.0); MEAN PLATELET VOLUME 10.2 FL (7.4-10.4); RBC DISTRIBUTION WIDTH 19.2 % (11.5-14.5); RED BLOOD CELL CT 2.52 /CUMM (4.20-5.40); WHITE BLOOD CELL COUNT 3.6 /CUMM (4.8-10.8)
[2017-06-05 05:17] LABS: PT 13.8 SEC (9.4-12.5); PTT 34 SEC (25-37)
[2017-06-05 06:02] LABS: GRANULOCYTE % 93.9 % (42.2-75.2); PLATELET COUNT 55 /CUMM (130-400)
--- NOTE | 2017-06-05 07:11 | PN- Resident CRCU ---
Jaron RAMOS,[facility] 06/05/17 0711: Subjective HPI/CRCU Issues: Atrial Fibrilliation Thrombocytopenia Acute Hypoxic Respiratory Failure 24 Hour Events: No acute events overnight. Her Plt continues to downtrend. On physical examination the patient appears well. Her labs and imaging suggest otherwise, however. Objective Vital Signs & I&O Last 8 Hrs of Vitals and I&O: . Exam General Appearance: no apparent distress, alert, awake, intubated Head: atraumatic, normal appearance Respiratory: normal breath sounds, chest non-tender, rhonchi, wheezing Cardiovascular: tachycardia, irregularly irregular Gastrointestinal: soft, non-tender Extremities: edema of right upper and lower extremity Cranial Nerves: normal hearing Skin: intact Skin Temp/Moisture Exam: Warm/Dry Sepsis Skin Exam (color): Normal for Ethnicity Weaning Parameters NIF: 20 Minute Volume: 12.2 Resp rate: 36 Vt: 340 Heart Rate: 104 Weaning Schedule Start Time: 1830 Minute Volume: 10.7 Resp Rate: 31 Vt: 345 Heart Rate: 119 End Time: 1930 Minute Volume: 13.1 Resp Rate: 37 Vt: 354 Heart Rate: 129 Current Medications: Current Medications Sig/Ric Start time Last Medication Dose Route Stop Time Status Admin Acetaminophen 650 MG Q6P PRN 05/19 0300 AC PO Acetaminophen 1,000 MG Q6P PRN 05/19 0300 AC 05/31 IV 2010 Acetylcysteine 4 ML EVERY 4 HRS/AWAKE 06/02 1600 AC 06/04 INH 2026 Albumin Human 25 GM Q8H 05/24 0822 AC 06/05 IV 0837 Albuterol Sulfate 3 ML EVERY 4 HRS/AWAKE 05/30 0800 AC 06/04 INH 2026 Amiodarone HCl 200 MG DAILY 06/04 1000 AC 06/04 PO 0921 Artificial Tears 2 GTT 4 TIMES/DAY PRN 05/30 0745 AC OPH Ascorbic Acid 500 MG DAILY 05/29 1000 AC 06/04 PO 0920 Ceftazidime 1,000 MG IQ8 06/02 1600 AC 06/05 IV 0837 Diltiazem HCl 60 MG Q6 06/02 1800 AC 06/05 PO 0603 Docusate Sodium 100 MG DAILY AC 05/23 0820 AC 06/05 PO 0604 Furosemide 100 MG Q20H 06/04 0800 AC 06/05 Sodium Chloride 100 ML IV 0448 Glycerin 2 SPRAY Q2P PRN 05/27 0800 AC PO Glycerin/Mineral Oil 1 PEDRITO TID PRN 05/24 1100 AC TOP Insulin Aspart 0 Q4H 05/21 1800 AC 06/05 SC 0609 Insulin Detemir 14 UNITS BID 06/04 1000 AC 06/04 SC 2244 Metoprolol Tartrate 100 MG BID 05/30 1000 AC 06/04 PO 2245 Multivitamins 1 TAB DAILY 05/29 1000 AC 06/04 PO 0920 Pantoprazole Sodium 40 MG BID 06/03 1000 AC 06/04 IV 2246 Polyethylene Glycol 17 GM DAILY 05/23 1000 AC 06/04 PO 1011 Potassium Chloride 40 MEQ DAILY 06/05 1000 AC PO Potassium Chloride 10 MEQ Q1H 06/05 0700 DC IV 06/05 0801 Prednisone 80 MG DAILY 06/02 1000 AC 06/04 PO 0920 Zinc Sulfate 220 MG DAILY 05/29 1000 AC 06/04 PO 0920 Impression/Plan Impression/Problem List Impression: 86 year old woman with past medical history of hypertension, hyperlipidemia, [place] s/p PCI with stent, diabetes mellitus, and restless leg syndrome, history of atrial fibrillation with anticoagulation on hold due to severe thrombocytopenia was sent in from extended care facility for hypoxia, leukocytosis and productive cough. She was admitted on telemetry floor and transfered to ICU after patient desaturated became unresponsive. Assessment and Plan: Acute hypoxic respiratory failure likely secondary to HCAP: * Her white count has normalized and she's been afebrile. Her repeat sputum culture is growing Pseudomonas sensitive to Ceftazidime. * Her CXR today is unimproved from yesterday. She appears to have chronic left lower lobe collapse. Will further decrease her free water flushes to reduce risk of pulmonary edema. * Continue Ceftazidime 1g q8. * Reintubated again since 05/28. * ID recs appreciated. * Continue mucomist BID nebs and aggressive pulmonary toilet. * Will continue diuresis with Lasix drip @5mg/hr. She has a rising BUN, which could be steroid induced. * Goals of care was discussed with family. They want to pursue everything for now. Atrial Fibrilliation: * Will continue metoprolol 100mg BID. * Continue oral Amiodarone at 200mg QD. * Continue Cardizem 60mg q6. Can be decreased to 30mg if not tolerated by blood pressure. * Discontinued Elliquis 2.5mg BID as Plt count is falling. * Echo - Normal left ventricular ejection fraction visually estimated at > 60% . Immune Thrombocytopenia: * Her platelets continue to decline for past few days. Could be likely due to her reinfection. * Continue Prednisone again to 80mg. * Daily CBC * s/p 1 unit transfusion of platelets 05/22. 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 * Will continue to follow DIC panel. * Can transfuse Plt or IVIG if Plt <30K and actively bleeding. GARCÍA on CKD: /resolved * Cr 1.1 today. * Was likely contrast induced nephropathy initially. * Nephro recs appreciated. * Strict I&Os. Diabetes Mellitus: * Continue tube feeds with Glucerna 1.2. Will go down on the water flushes. * Levemir 14mg BID * Insulin SS. Adjusted per Endo's recommendations. Lower Extremity Skin Changes: /resolved * Was evaluated by vascular surgery. Recommend no surgical intervention at this time. * Small ulcer on left/right foot base. Wound care notes appreciated. History of restless leg syndrome: * Sinemet was recently discontinued * Lyrica on hold currently. * Lubriderm to affected skin. DVT Prophylaxis: ALPS Code: Full Problem List: 1. A-fib Pain Ratin Tomorrow's Labs & Rationales: CBC, ICU bundle Plan DVT/Prophylaxis: Jordi Trujillo MD 06/05/17 0933: Attending MD Review Statement Attending Sign Off Attending Cosign Statement: I have: examined this patient, reviewed avalbl EMR data, personally reviewd images, discussd w/resident/PA/CROP SUPERVISOR, discussed mgmt plan w/ida, discussed mgmt plan w/CM, discussed mgmt plan w/pt, agreed w/resident/PA/CROP SUPERVISOR, amended to note. Other Findings: Jordi Lopez M.D. have examined this patient, reviewed available EMR data, personally reviewed images, discussed with resident/PA/CROP SUPERVISOR, discussed management plan with housestaff and nursing staff, discussed managment plan all of healthcare providers, discussed management plan with patient and/or family, agreed with resident/PA/CROP SUPERVISOR. The past history and parts of the chart have been autopopulated. Impression 86 year old woman resolved septic shock a.fib RVR acute hypoxemic respiratory failure GARCÍA improved Plan -cont mechanical ventilation - SBT trials, wedge on left side, right lung "down " -ID f/u - on ceftazadime -cardiology, ID f/u -f/u hematology recommendations, stress steroids can be tapered per heme -endocrinology appreciated -nephrology consultation appreciated -if no improvement will discuss option of trach early next week DVT prophylaxis at all times TTS 35 min
--- NOTE | 2017-06-05 07:23 | PN- Diabetes ---
Assessment/Plan Assessment: Patient is now reintubated. She is on a respirator and sedated. Her steroid dose is prednisone 80 mg once a day. Sputum culture is positive for pseudomonas. Patient's antibiotics have been adjusted. She is presently on 14 units of Levemir twice a day. Her tube feedingsis at 65 mL/h. She is also on every 4 hour NovoLog coverage. Most recent fingerstick blood sugar is 201. The patient's serum sodium is 144. Her creatinine has gone down to 1.0 with a BUN of 77.. She is receiving free water flushes via feeding tube. The patient is being treated with a Lasix drip for pulmonary edema. Today's chest x-ray is pending. Plan: Suggest continue the present insulin. Blood sugars are in reasonable control. Subjective Subjective: Intubated and sedated Objective Last 24 Hrs of Vital Signs/I&O Vital Signs Date Time Temp Pulse Resp B/P B/P Pulse O2 O2 Flow FiO2 Mean Ox Delivery Rate 06/05 0643 40 06/05 0603 144 20 126/81 06/05 0400 95 Ventilator 40% 06/05 0207 40 06/05 0000 95 Ventilator 40% 06/05 0000 97.9 120 16 110/70 95 Ventilator 40% 06/04 2338 94 20 118/83 06/04 2251 40 06/04 2245 99.4 135 18 115/68 06/04 2000 94 Ventilator 40% 06/04 1930 40 06/04 1800 98.0 131 18 100/71 06/04 1625 40 06/04 1600 98 Ventilator 40% 06/04 1600 98.0 110 18 120/70 98 Ventilator 40% 06/04 1413 40 06/04 1200 96 Ventilator 40% 06/04 1146 98.0 118 18 111/70 06/04 0921 98.0 131 19 155/80 06/04 0921 98.0 131 19 155/80 06/04 0908 40 06/04 0800 96 Ventilator 40% 06/04 0800 98.0 118 19 112/70 96 Ventilator 40% Intake & Output 06/05 0800 02 0000 06/04 1600 Intake Total 763 916 920 Output Total 880 700 580 Balance -117 216 340 Intake, IV 143 51 Intake, Other 100 Intake, Tube 400 530 420 Feeding Intake, Tube 220 335 400 Irrigant Number 1 Bowel Movements Output, Urine 880 700 580 Patient 280 lb Weight Weight Bed scale Measurement Method Vital Signs Date Time Temp Pulse Resp B/P B/P Pulse O2 O2 Flow FiO2 Mean Ox Delivery Rate 02/ 0643 40 02 0603 144 20 126/81 02/ 0400 95 Ventilator 40% 02/ 0207 40 02 0000 95 Ventilator 40% / 0000 97.9 120 16 110/70 95 Ventilator 40% 06/04 2338 94 20 118/83 06/04 2251 40 06/04 2245 99.4 135 18 115/68 06/04 1999 94 Ventilator 40% 06/04 1930 40 06/04 1800 98.0 131 18 100/71 06/04 1625 40 06/04 1600 98 Ventilator 40% 06/04 1600 98.0 110 18 120/70 98 Ventilator 40% 06/04 1413 40 06/04 1200 96 Ventilator 40% 06/04 1146 98.0 118 18 111/70 06/04 0921 98.0 131 19 155/80 06/04 0921 98.0 131 19 155/80 06/04 0908 40 06/04 0800 96 Ventilator 40% 06/04 0800 98.0 118 19 112/70 96 Ventilator 40% Intake & Output 06/05 0800 06/05 0000 06/04 1600 Intake Total 763 916 920 Output Total 880 700 580 Balance -117 216 340 Intake, IV 143 51 Intake, Other 100 Intake, Tube 400 530 420 Feeding Intake, Tube 220 335 400 Irrigant Number 1 Bowel Movements Output, Urine 880 700 580 Patient 280 lb Weight Weight Bed scale Measurement Method Vital Signs Date Time Temp Pulse Resp B/P B/P Pulse O2 O2 Flow FiO2 Mean Ox Delivery Rate 06/05 0643 40 02 0603 144 20 126/81 06/05 0400 95 Ventilator 40% 06/05 0207 40 02 0000 95 Ventilator 40% 06/05 0000 97.9 120 16 110/70 95 Ventilator 40% 06/04 2338 94 20 118/83 06/04 2251 40 06/04 2245 99.4 135 18 115/68 06/04 1999 94 Ventilator 40% 06/04 1930 40 06/04 1800 98.0 131 18 100/71 06/04 1625 40 06/04 1600 98 Ventilator 40% 06/04 1600 98.0 110 18 120/70 98 Ventilator 40% 06/04 1413 40 06/04 1200 96 Ventilator 40% 06/04 1146 98.0 118 18 111/70 06/04 0921 98.0 131 19 155/80 06/04 0921 98.0 131 19 155/80 06/04 0908 40 06/04 0800 96 Ventilator 40% 06/04 0800 98.0 118 19 112/70 96 Ventilator 40% Intake & Output 06/05 0800 06/05 0000 06/04 1600 Intake Total 763 916 920 Output Total 880 700 580 Balance -117 216 340 Intake, IV 143 51 Intake, Other 100 Intake, Tube 400 530 420 Feeding Intake, Tube 220 335 400 Irrigant Number 1 Bowel Movements Output, Urine 880 700 580 Patient 280 lb Weight Weight Bed scale Measurement Method Physical Exam General Appearance: awake, intubated Head: normal appearance Respiratory: crackles Cardiovascular: tachycardia, irregularly irregular Abdomen: normal bowel sounds, soft Current Medications: Current Medications Sig/Ric Start time Last Medication Dose Route Stop Time Status Admin Acetaminophen 650 MG Q6P PRN 05/19 030 AC PO Acetaminophen 1,000 MG Q6P PRN 05/19 0300 AC 05/31 IV 2010 Acetylcysteine 4 ML EVERY 4 HRS/AWAKE 06/02 1600 AC 06/04 INH 2026 Albumin Human 25 GM Q8H 05/24 0822 AC 06/04 IV 2339 Albuterol Sulfate 3 ML EVERY 4 HRS/AWAKE 05/30 0800 AC 06/04 INH 2026 Amiodarone HCl 200 MG DAILY 06/04 1000 AC 06/04 PO 0921 Amiodarone HCl 200 MG BID 06/02 2200 DC 06/03 PO 2129 Artificial Tears 2 GTT 4 TIMES/DAY PRN 05/30 0745 AC OPH Ascorbic Acid 500 MG DAILY 05/29 1000 AC 06/04 PO 0920 Ceftazidime 1,000 MG IQ8 06/02 1600 AC 06/04 IV 2338 Diltiazem HCl 60 MG Q6 06/02 1800 AC 06/05 PO 0603 Docusate Sodium 100 MG DAILY AC 05/23 0820 AC 06/05 PO 0604 Furosemide 100 MG Q20H 06/04 0800 AC 06/05 Sodium Chloride 100 ML IV 0448 Glycerin 2 SPRAY Q2P PRN 05/27 0800 AC PO Glycerin/Mineral Oil 1 PEDRITO TID PRN 05/24 1100 AC TOP Insulin Aspart 0 Q4H 05/21 1800 AC 06/05 SC 0609 Insulin Detemir 14 UNITS BID 06/04 1000 AC 06/04 SC 2244 Insulin Detemir 12 UNITS BID 06/03 1000 DC 06/03 SC 2128 Metoprolol Tartrate 100 MG BID 05/30 1000 AC 06/04 PO 2245 Multivitamins 1 TAB DAILY 05/29 1000 AC 06/04 PO 0920 Pantoprazole Sodium 40 MG BID 06/03 1000 AC 06/04 IV 2246 Polyethylene Glycol 17 GM DAILY 05/23 1000 AC 06/04 PO 1011 Potassium Chloride 10 MEQ Q1H 06/05 0700 UNVr IV 06/05 0801 Prednisone 80 MG DAILY 06/02 1000 AC 06/04 PO 0920 Zinc Sulfate 220 MG DAILY 05/29 1000 AC 06/04 PO 0920 Findings Pertinent Lab/Silvano Results: Laboratory Tests 06/05 0340 Chemistry Sodium (137 - 145 mmol/L) 144 Potassium (3.5 - 5.1 mmol/L) 3.5 Chloride (98 - 107 mmol/L) 98 Carbon Dioxide (22 - 30 mmol/L) 28 Anion Gap (5 - 16) 19 H BUN (7 - 17 mg/dL) 77 H Creatinine (0.5 - 1.0 mg/dL) 1.1 H Estimated GFR (>60 ml/min) 47 L Glucose (65 - 99 mg/dL) 213 H Calcium (8.4 - 10.2 mg/dL) 8.8 Phosphorus (2.5 - 4.5 mg/dL) 3.7 Magnesium (1.6 - 2.3 mg/dL) 2.0 Total Bilirubin (0.2 - 1.3 mg/dL) 0.6 AST (14 - 36 U/L) 13 L ALT (9 - 52 U/L) 23 Albumin (3.5 - 5.0 g/dL) 3.8 Coagulation PT (9.4 - 12.5 SEC) 13.8 H INR (0.90 - 1.19) 1.32 H APTT (25 - 37 SEC) 34 Fibrinogen Activity (200 - 393 MG/DL) 152 L Hematology CBC w Diff NO MAN DIFF REQ WBC (4.8 - 10.8 /CUMM) 3.6 L RBC (4.20 - 5.40 /CUMM) 2.52 L Hgb (12.0 - 16.0 G/DL) 7.5 L Hct (37 - 47 %) 23.0 L MCV (81.0 - 99.0 FL) 91.3 MCH (27.0 - 31.0 PG) 29.7 MCHC (33.0 - 37.0 G/DL) 32.5 L RDW (11.5 - 14.5 %) 19.2 H Plt Count (130 - 400 /CUMM) 55 L MPV (7.4 - 10.4 FL) 10.2 Gran % (42.2 - 75.2 %) 93.9 H Lymphocytes % (20.5 - 51.1 %) 4.9 L Monocytes % (1.7 - 9.3 %) 1.2 L Eosinophils % (0 - 5 %) 0 Basophils % (0.0 - 2.0 %) 0 Absolute Granulocytes (1.4 - 6.5 /CUMM) 3.3 Absolute Lymphocytes (1.2 - 3.4 /CUMM) 0.2 L Absolute Monocytes (0.10 - 0.60 /CUMM) 0 L Absolute Eosinophils (0.0 - 0.7 /CUMM) 0 Absolute Basophils (0.0 - 0.2 /CUMM) 0
--- NOTE | 2017-06-05 07:32 | PN- Cardiology ---
Subjective Subjective: Remains intubated, awake, no events overnight Objective Vital Signs and I&Os Vital Signs Date Time Temp Pulse Resp B/P B/P Pulse O2 O2 Flow FiO2 Mean Ox Delivery Rate 02 0643 40 06/05 0603 144 20 126/81 02 0400 95 Ventilator 40% 06/05 0207 40 06/05 0000 95 Ventilator 40% 06/05 0000 97.9 120 16 110/70 95 Ventilator 40% 06/04 2338 94 20 118/83 06/04 2251 40 06/04 2245 99.4 135 18 115/68 06/04 2000 94 Ventilator 40% 06/04 1930 40 06/04 1800 98.0 131 18 100/71 06/04 1625 40 06/04 1600 98 Ventilator 40% 06/04 1600 98.0 110 18 120/70 98 Ventilator 40% 06/04 1413 40 06/04 1200 96 Ventilator 40% 06/04 1146 98.0 118 18 111/70 06/04 0921 98.0 131 19 155/80 06/04 0921 98.0 131 19 155/80 06/04 0908 40 06/04 0800 96 Ventilator 40% 06/04 0800 98.0 118 19 112/70 96 Ventilator 40% Intake & Output 06/05 0800 06/05 0000 06/04 1600 06/04 0800 06/04 0000 06/03 1600 Intake Total 763 384 638 6875 1270 1026 Output Total 880 700 580 400 350 400 Balance -117 216 340 614 920 626 Intake, IV 143 51 130 130 150 Intake, Other 100 Intake, Tube 400 530 420 359 830 351 Feeding Intake, Tube 220 335 400 525 310 525 Irrigant Number 1 1 1 Bowel Movements Output, Urine 880 700 580 400 350 400 Patient 280 lb 286 lb Weight Weight Bed scale Bed scale Measurement Method Physical Exam: HEENT-PERRLA No acute distress Neck-unable to assess JVP, no bruits Lungs-decreased BS at both bases,few rhonchi Heart-S1S2 irregular, no murmur Abdomen-soft, obese, not tender, BS+, no organomegaly Extr-dermatitis, 1+ RUE edema-improved, trace legs edema diminished distal pulses Neuro-non foc Current Medications: Current Medications Sig/Ric Start time Last Medication Dose Route Stop Time Status Admin Acetaminophen 650 MG Q6P PRN 05/19 0300 AC PO Acetaminophen 1,000 MG Q6P PRN 05/19 0300 AC 05/31 IV 2010 Acetylcysteine 4 ML EVERY 4 HRS/AWAKE 06/02 1600 AC 06/04 INH 202 Albumin Human 25 GM Q8H 05/24 0822 AC 06/04 IV 2339 Albuterol Sulfate 3 ML EVERY 4 HRS/AWAKE 05/30 0800 AC 06/04 INH 202 Amiodarone HCl 200 MG DAILY 06/04 1000 AC 06/04 PO 0921 Amiodarone HCl 200 MG BID 06/02 2200 DC 06/03 PO 2129 Artificial Tears 2 GTT 4 TIMES/DAY PRN 05/30 0745 AC OPH Ascorbic Acid 500 MG DAILY 05/29 1000 AC 06/04 PO 0920 Ceftazidime 1,000 MG IQ8 06/02 1600 AC 06/04 IV 2338 Diltiazem HCl 60 MG Q6 06/02 1800 AC 06/05 PO 0603 Docusate Sodium 100 MG DAILY AC 05/23 0820 AC 06/05 PO 0604 Furosemide 100 MG Q20H 06/04 0800 AC 06/05 Sodium Chloride 100 ML IV 0448 Glycerin 2 SPRAY Q2P PRN 05/27 0800 AC PO Glycerin/Mineral Oil 1 PEDRITO TID PRN 05/24 1100 AC TOP Insulin Aspart 0 Q4H 05/21 1800 AC 06/05 SC 0609 Insulin Detemir 14 UNITS BID 06/04 1000 AC 06/04 SC 2244 Insulin Detemir 12 UNITS BID 06/03 1000 DC 06/03 SC 2128 Metoprolol Tartrate 100 MG BID 05/30 1000 AC 06/04 PO 2245 Multivitamins 1 TAB DAILY 05/29 1000 AC 06/04 PO 0920 Pantoprazole Sodium 40 MG BID 06/03 1000 AC 06/04 IV 2246 Polyethylene Glycol 17 GM DAILY 05/23 1000 AC 06/04 PO 1011 Potassium Chloride 10 MEQ Q1H 06/05 0700 UNVr IV 06/05 0801 Prednisone 80 MG DAILY 06/02 1000 AC 06/04 PO 0920 Zinc Sulfate 220 MG DAILY 05/29 1000 AC 06/04 PO 0920 Results Last 48 Hrs of Labs/Mics: Laboratory Tests 06/05/17 0340: Anion Gap 19 H, Estimated GFR 47 L, Glucose 213 H, Calcium 8.8, Phosphorus 3.7, Magnesium 2.0, Total Bilirubin 0.6, AST 13 L, ALT 23, Albumin 3.8, PT 13.8 H, INR 1.32 H, APTT 34, Fibrinogen Activity 152 L, CBC w Diff NO MAN DIFF REQ , RBC 2.52 L, MCV 91.3, MCH 29.7, MCHC 32.5 L, RDW 19.2 H, MPV 10.2, Gran % 93.9 H, Lymphocytes % 4.9 L, Monocytes % 1.2 L, Eosinophils % 0, Basophils % 0, Absolute Granulocytes 3.3, Absolute Lymphocytes 0.2 L, Absolute Monocytes 0 L, Absolute Eosinophils 0, Absolute Basophils 0 06/04/17 0400: Anion Gap 15, Estimated GFR 53 L, Glucose 233 H, Calcium 8.6, Phosphorus 3.7, Magnesium 2.0, Total Bilirubin 0.9, AST 16, ALT 20, Albumin 3.6, PT 14.6 H, INR 1.40 H, APTT 37, Fibrinogen Activity 178 L, CBC w Diff MAN DIFF ORDERED, RBC 2.62 L, MCV 91.5, MCH 29.3, MCHC 32.0 L, RDW 19.5 H, MPV 10.9 H, Gran % 93.5 H, Lymphocytes % 5.0 L, Monocytes % 1.5 L, Eosinophils % 0, Basophils % 0, Absolute Granulocytes 3.1, Segmented Neutrophils 97 H, Absolute Lymphocytes 0.2 L, Lymphocytes 2 L, Monocytes 1 L, Absolute Monocytes 0 L, Absolute Eosinophils 0, Absolute Basophils 0, Platelet Estimate DECREASED, Polychromasia 1+, Hypochromic-Microcytic 1+, Poikilocytosis 1+, Basophilic Stippling SLIGHT, Ovalocytes 1+, Stomatocytes FEW, Fld Total RBCs Counted 100 Assessment/Plan Assessment/Plan 1. Acute hypoxic respiratory failure/septic shock secondary to MSSA PNA. Now reintubated, recurrent pneumonia-sputum positive for pseudomonas-currently on ceftazidime. CXR yesterday worse-more right hemithorax opacification-?infiltrate,?pulmonary edema, ?amiodarone induced pneumonitis Patient started on Lasix drip yesterday, diuresing well, weight down 6lbs. 2. atrial fibrillation, on oral cardizem, amiodarone, metoprolol, rate acceptable 3. GARCÍA-increased BUN, creatinine back to normal-stable on lasix drilp 4.Thrombocytopenia/ITP, platelets dropping with reinfection 5. Anemia- worse today Plan: continue lasix drip 5 mg/hr iv and increase based non urine output negative fluid balance replete K+ daily weights CXR tomorrow If HGB below 7.5, transfuse 1UPRBC reduce free water flushes if hypotension again an issue-decrease cardizem to 30 mg qid Continue telemetry? Yes
--- NOTE | 2017-06-05 07:53 | PN- Hematology ---
Subjective Subjective: She remains intubated. She is awake and alert. Her HR remains irregular and elevated. Review of Systems: Limited secondary to intubation. She denies any pain. She denies any discomfort. Objective Vital Signs and I&Os Vital Signs Date Time Temp Pulse Resp B/P B/P Pulse O2 O2 Flow FiO2 Mean Ox Delivery Rate 06/05 0643 40 06/05 0603 144 20 126/81 06/05 0400 95 Ventilator 40% 06/05 0207 40 06/05 0000 95 Ventilator 40% 06/05 0000 97.9 120 16 110/70 95 Ventilator 40% 06/04 2338 94 20 118/83 06/04 2251 40 06/04 2245 99.4 135 18 115/68 06/04 2000 94 Ventilator 40% 06/04 1930 40 06/04 1800 98.0 131 18 100/71 06/04 1625 40 06/04 1600 98 Ventilator 40% 06/04 1600 98.0 110 18 120/70 98 Ventilator 40% 06/04 1413 40 06/04 1200 96 Ventilator 40% 06/04 1146 98.0 118 18 111/70 06/04 0921 98.0 131 19 155/80 06/04 0921 98.0 131 19 155/80 06/04 0908 40 06/04 0800 96 Ventilator 40% 06/04 0800 98.0 118 19 112/70 96 Ventilator 40% Intake & Output 06/05 0800 06/05 0000 06/04 1600 06/04 0800 06/04 0000 06/03 1600 Intake Total 763 981 446 7933 1270 1026 Output Total 880 700 580 400 350 400 Balance -117 216 340 614 920 626 Intake, IV 143 51 130 130 150 Intake, Other 100 Intake, Tube 400 530 420 359 830 351 Feeding Intake, Tube 220 335 400 525 310 525 Irrigant Number 1 1 1 Bowel Movements Output, Urine 880 700 580 400 350 400 Patient 127.006 kg 129.727 kg Weight Weight Bed scale Bed scale Measurement Method Physical Exam: General Appearance: awake, comfortable, intubated Ears, Nose, Throat: ET tube in place Respiratory: chest non-tender, rhonchi Cardiovascular: tachycardia, irregularly irregular Abdomen: normal bowel sounds, soft, non-tender Extremities: bilateral upper extremity (trace LUE, 1+ RUE), ecchymoses in upper extremities, hyperpigmented lower extremities, RUE with PICC line Skin: dry Neurologic/Psychiatric: awake, follows commands, intubated Current Medications: Current Medications Sig/Ric Start time Last Medication Dose Route Stop Time Status Admin Acetaminophen 650 MG Q6P PRN 05/19 0300 AC PO Acetaminophen 1,000 MG Q6P PRN 05/19 0300 AC 05/31 IV 2009 Acetylcysteine 4 ML EVERY 4 HRS/AWAKE 06/02 1600 AC 06/04 INH 202 Albumin Human 25 GM Q8H 05/24 0822 AC 06/04 IV 2339 Albuterol Sulfate 3 ML EVERY 4 HRS/AWAKE 05/30 0800 AC 06/04 INH 202 Amiodarone HCl 200 MG DAILY 06/04 1000 AC 06/04 PO 0921 Amiodarone HCl 200 MG BID 06/02 2200 DC 06/03 PO 2129 Artificial Tears 2 GTT 4 TIMES/DAY PRN 05/30 0745 AC OPH Ascorbic Acid 500 MG DAILY 05/29 1000 AC 06/04 PO 0920 Ceftazidime 1,000 MG IQ8 06/02 1600 AC 06/04 IV 2338 Diltiazem HCl 60 MG Q6 06/02 1800 AC 06/05 PO 0603 Docusate Sodium 100 MG DAILY AC 05/23 0820 AC 06/05 PO 0604 Furosemide 100 MG Q20H 06/04 0800 AC 06/05 Sodium Chloride 100 ML IV 0448 Glycerin 2 SPRAY Q2P PRN 05/27 0800 AC PO Glycerin/Mineral Oil 1 PEDRITO TID PRN 05/24 1100 AC TOP Insulin Aspart 0 Q4H 05/21 1800 AC 06/05 SC 0609 Insulin Detemir 14 UNITS BID 06/04 1000 AC 06/04 SC 2244 Insulin Detemir 12 UNITS BID 06/03 1000 DC 06/03 SC 2128 Metoprolol Tartrate 100 MG BID 05/30 1000 AC 06/04 PO 2245 Multivitamins 1 TAB DAILY 05/29 1000 AC 06/04 PO 0920 Pantoprazole Sodium 40 MG BID 06/03 1000 AC 06/04 IV 2246 Polyethylene Glycol 17 GM DAILY 05/23 1000 AC 06/04 PO 1011 Potassium Chloride 10 MEQ Q1H 06/05 0700 AC IV 06/05 0801 Prednisone 80 MG DAILY 06/02 1000 AC 06/04 PO 0920 Zinc Sulfate 220 MG DAILY 01/25 1000 AC 06/04 PO 0920 Results Last 24 Hours of Lab Results: Laboratory Tests 06/05 0340 Chemistry Sodium (137 - 145 mmol/L) 144 Potassium (3.5 - 5.1 mmol/L) 3.5 Chloride (98 - 107 mmol/L) 98 Carbon Dioxide (22 - 30 mmol/L) 28 Anion Gap (5 - 16) 19 H BUN (7 - 17 mg/dL) 77 H Creatinine (0.5 - 1.0 mg/dL) 1.1 H Estimated GFR (>60 ml/min) 47 L Glucose (65 - 99 mg/dL) 213 H Calcium (8.4 - 10.2 mg/dL) 8.8 Phosphorus (2.5 - 4.5 mg/dL) 3.7 Magnesium (1.6 - 2.3 mg/dL) 2.0 Total Bilirubin (0.2 - 1.3 mg/dL) 0.6 AST (14 - 36 U/L) 13 L ALT (9 - 52 U/L) 23 Albumin (3.5 - 5.0 g/dL) 3.8 Coagulation PT (9.4 - 12.5 SEC) 13.8 H INR (0.90 - 1.19) 1.32 H APTT (25 - 37 SEC) 34 Fibrinogen Activity (200 - 393 MG/DL) 152 L Hematology CBC w Diff NO MAN DIFF REQ WBC (4.8 - 10.8 /CUMM) 3.6 L RBC (4.20 - 5.40 /CUMM) 2.52 L Hgb (12.0 - 16.0 G/DL) 7.5 L Hct (37 - 47 %) 23.0 L MCV (81.0 - 99.0 FL) 91.3 MCH (27.0 - 31.0 PG) 29.7 MCHC (33.0 - 37.0 G/DL) 32.5 L RDW (11.5 - 14.5 %) 19.2 H Plt Count (130 - 400 /CUMM) 55 L MPV (7.4 - 10.4 FL) 10.2 Gran % (42.2 - 75.2 %) 93.9 H Lymphocytes % (20.5 - 51.1 %) 4.9 L Monocytes % (1.7 - 9.3 %) 1.2 L Eosinophils % (0 - 5 %) 0 Basophils % (0.0 - 2.0 %) 0 Absolute Granulocytes (1.4 - 6.5 /CUMM) 3.3 Absolute Lymphocytes (1.2 - 3.4 /CUMM) 0.2 L Absolute Monocytes (0.10 - 0.60 /CUMM) 0 L Absolute Eosinophils (0.0 - 0.7 /CUMM) 0 Absolute Basophils (0.0 - 0.2 /CUMM) 0 Assessment/Plan Assessment/Recommendations: Ms. Christine is an 86-year-old female with chronic ITP, HTN, HLD, NE s/p PCI with stent, DM, and atrial fibrillation who presented with new hypoxia and cough. She has been having new cough a few days ago. CTA demonstrated moderate atelectasis/consolidation in the left upper and lower lobes. There was mild right base atelectasis and moderate left and [id number] right pleural effusions. She was briefly in shock and required Levophed. She was improving on Oxacillin. She was on Zosyn and is now on ceftazidime. She remains in atrial fibrillation with RVR. She is on metoprolol, amiodarone, and diltiazem. She remains intubated and on FiO2 of 40%. Pancytopenia continues to be an issue. Thrombocytopenia is worse today. Platelet count was 55,000. DIC is worse today. It is unclear if this process is totally related to ITP. Medication-induced thrombocytopenia is also in a differential. Infectious etiology is likely the cause for her cytopenia. She is on prednisone 80 mg daily. She can continue this for now and continue with monitoring for now. She may improve once other medical issues improves. If she continues to have worsening thrombocytopenia and with bleeding, platelet transfusion may be given. A trial of high dose dexamethasone 40 mg may be given. Overall picture suggest multifactorial process. Pancytopenia: -Continue prednisone 80 mg daily -Continue to monitor DIC: fibrinogen and INR -Consider ERMA in the future for anemia of chronic disease -Continue to hold apixaban -consider trial of platelet transfusion and high dose dexamethasone if bleeding and platelet count <30,000 Acute hypoxic respiratory failure: -Management as per primary ICU team -Antibiotics as per primary and infectious disease Atrial fibrillation with RVR: -Management as per cardiology -medications: amiodarone, diltiazem, metoprolol Please call [phone] with any questions or concerns. Problem List: 1. Pancytopenia 2. Sepsis 3. Pneumonia 4. Atrial fibrillation with RVR
[2017-06-05 08:00] VITALS: BP 120/62
--- NOTE | 2017-06-05 08:34 | RADIOLOGY REPORT ---
EXAMINATION: XR PORTABLE CHEST CLINICAL INFORMATION: Pulmonary edema, pneumonia. Tubes and lines. COMPARISON: 06/04/2017 TECHNIQUE: Portable frontal view of the chest was obtained. FINDINGS: Patient remains rotated into a left posterior oblique position. Endotracheal tube is located 4.5 cm above the krystal. The tip of the right arm peripherally inserted catheter is in the region of the proximal right atrium, unchanged. An enteric tube extends below the diaphragm, into the stomach and beyond the [id number]. The lungs are poorly evaluated on this single view examination in this rotated patient who has a large body habitus. The left diaphragm is poorly defined, likely due to persistent left pleural effusion, consolidation and/or atelectasis. Also, the right diaphragm is indistinct. Cardiomegaly and prominent pulmonary arteries. Pulmonary vessels remains suboptimally defined; unable to exclude vascular congestion and mild pulmonary edema. The visualized bones are intact. IMPRESSION: 1. Tubes and lines appear to be in stable, satisfactory position. No pneumothorax or pneumomediastinum. 2. Pulmonary disease remains similar in appearance compared to 06/04/2017. Overall, lungs are suboptimally evaluated due to the patient body habitus and rotation.
--- NOTE | 2017-06-05 11:57 | PN- Infect Dx ---
Subjective Subjective: Afebrile on steroids. She offers no complaints. Objective Last 24 Hrs of Vital Signs/I&O Vital Signs Date Time Temp Pulse Resp B/P B/P Pulse O2 O2 Flow FiO2 Mean Ox Delivery Rate 06/05 1129 40 06/05 0947 98.3 132 20 128/79 06/05 0947 98.3 132 20 128/79 06/05 0910 40 06/05 0800 93 Ventilator 40% 06/05 0800 98.3 111 26 120/62 93 Ventilator 40% 06/05 0643 40 06/05 0603 144 20 126/81 02 0400 95 Ventilator 40% 06/05 0207 40 06/05 0000 95 Ventilator 40% 06/05 0000 97.9 120 16 110/70 95 Ventilator 40% 06/04 2338 94 20 118/83 06/04 2251 40 06/04 2245 99.4 135 18 115/68 06/04 2000 94 Ventilator 40% 06/04 1930 40 06/04 1800 98.0 131 18 100/71 06/04 1625 40 06/04 1600 98 Ventilator 40% 06/04 1600 98.0 110 18 120/70 98 Ventilator 40% 06/04 1413 40 06/04 1200 96 Ventilator 40% Intake & Output 06/05 1600 06/05 0800 06/05 0000 Intake Total 763 916 Output Total 880 700 Balance -117 216 Intake, IV 143 51 Intake, Tube 400 530 Feeding Intake, Tube 220 335 Irrigant Output, Urine 880 700 Patient 280 lb Weight Weight Bed scale Measurement Method Physical Exam Other Physical Findings: She appears comfortable on the ventilator in no acute distress Lungs are clear Heart regular rhythm with no murmur Extremities no cyanosis, clubbing or edema; PICC in the right upper extremity with no inflammation at the site Faust catheter remains in place Results Last 24 Hours of Lab Results: Laboratory Tests 06/05 0340 Chemistry Sodium (137 - 145 mmol/L) 144 Potassium (3.5 - 5.1 mmol/L) 3.5 Chloride (98 - 107 mmol/L) 98 Carbon Dioxide (22 - 30 mmol/L) 28 Anion Gap (5 - 16) 19 H BUN (7 - 17 mg/dL) 77 H Creatinine (0.5 - 1.0 mg/dL) 1.1 H Estimated GFR (>60 ml/min) 47 L Glucose (65 - 99 mg/dL) 213 H Calcium (8.4 - 10.2 mg/dL) 8.8 Phosphorus (2.5 - 4.5 mg/dL) 3.7 Magnesium (1.6 - 2.3 mg/dL) 2.0 Total Bilirubin (0.2 - 1.3 mg/dL) 0.6 AST (14 - 36 U/L) 13 L ALT (9 - 52 U/L) 23 Albumin (3.5 - 5.0 g/dL) 3.8 Coagulation PT (9.4 - 12.5 SEC) 13.8 H INR (0.90 - 1.19) 1.32 H APTT (25 - 37 SEC) 34 Fibrinogen Activity (200 - 393 MG/DL) 152 L Hematology CBC w Diff NO MAN DIFF REQ WBC (4.8 - 10.8 /CUMM) 3.6 L RBC (4.20 - 5.40 /CUMM) 2.52 L Hgb (12.0 - 16.0 G/DL) 7.5 L Hct (37 - 47 %) 23.0 L MCV (81.0 - 99.0 FL) 91.3 MCH (27.0 - 31.0 PG) 29.7 MCHC (33.0 - 37.0 G/DL) 32.5 L RDW (11.5 - 14.5 %) 19.2 H Plt Count (130 - 400 /CUMM) 55 L MPV (7.4 - 10.4 FL) 10.2 Gran % (42.2 - 75.2 %) 93.9 H Lymphocytes % (20.5 - 51.1 %) 4.9 L Monocytes % (1.7 - 9.3 %) 1.2 L Eosinophils % (0 - 5 %) 0 Basophils % (0.0 - 2.0 %) 0 Absolute Granulocytes (1.4 - 6.5 /CUMM) 3.3 Absolute Lymphocytes (1.2 - 3.4 /CUMM) 0.2 L Absolute Monocytes (0.10 - 0.60 /CUMM) 0 L Absolute Eosinophils (0.0 - 0.7 /CUMM) 0 Absolute Basophils (0.0 - 0.2 /CUMM) 0 Last 24 Hours of Silvano Results: Blood cultures June 01 negative Recent Imaging Studies: Chest x-ray June 05, limited study secondary to rotation and body habitus, reveals a persistent density at the left lung base with indistinct right hemidiaphragm; cardiomegaly and prominent pulmonary arteries Assessment/Plan Impression: Stable, with temperatures and white blood cell count remaining normal, on Ceftazidime Day 4 of treatment for Pseudomonas, isolated from her recent sputum culture, with bilateral densities on chest x-ray, felt most likely to be secondary to fluid overload. Her platelet count continues to decrease, presumably secondary to the new infectious process in the setting of chronic ITP. Suggestion: 1. Repeat sputum culture 2. Further management of her fluid status per Cardiology 3. Further management of her steroids per Hematology 4. Increase Ceftazidime to 2 g IV every 8 hours
[2017-06-05 14:48] LABS: ABSOLUTE BASOPHIL COUNT 0 /CUMM (0.0-0.2); ABSOLUTE EOSINOPHIL COUNT 0 /CUMM (0.0-0.7); ABSOLUTE GRANULOCYTE CT 4.9 /CUMM (1.4-6.5); ABSOLUTE LYMPH COUNT 0.1 /CUMM (1.2-3.4); ABSOLUTE MONOCYTE COUNT 0 /CUMM (0.10-0.60); BASOPHIL % 0 % (0.0-2.0); EOSINOPHIL % 0.1 % (0-5); HEMATOCRIT 23.2 % (37-47); MEAN CORPUSCULAR HGB 29.3 PG (27.0-31.0); MEAN CORPUSCULAR HGB CONC 32.4 G/DL (33.0-37.0); MEAN CORPUSCULAR VOLUME 90.5 FL (81.0-99.0); MEAN PLATELET VOLUME 10.4 FL (7.4-10.4); RBC DISTRIBUTION WIDTH 19.2 % (11.5-14.5); RED BLOOD CELL CT 2.56 /CUMM (4.20-5.40)
--- NOTE | 2017-06-05 15:05 | RADIOLOGY REPORT ---
EXAMINATION: XR PORTABLE CHEST CLINICAL INFORMATION: Pulmonary edema. COMPARISON: Chest x-rays 06/04/2017 and jake 06/05/2017. TECHNIQUE: Portable AP 85 degrees semiupright view of the chest was obtained. FINDINGS: The patient is slightly better position, with mild left posterior oblique rotation. The endotracheal tube is noted with the tip approximately 4.3 cm above the krystal. An enteric tube is noted extending below the level of the gastroesophageal junction. There is a right-sided PICC line, with the tip in the distal SVC. The lung cotton are poorly expanded bilaterally. There is prominence of the cardiac silhouette and unfolding of the aortic arch. There is mild prominence of the central pulmonary vasculature. There in our mild increased interstitial markings in the lower zones, which may be due to inspiration versus interstitial edema. There are equivocal small pleural effusions. There are no acute osseous findings. Multiple monitor leads overlying the chest. IMPRESSION: 1. The tubes and lines appear to be in good position. 2. The lungs are hypoexpanded. There is mild cardiomegaly with suggestion of interstitial edematous changes and small pleural effusions. Correlate clinically.
[2017-06-05 15:09] LABS: GRANULOCYTE % 97.7 % (42.2-75.2); PLATELET COUNT 55 /CUMM (130-400)
[2017-06-05 16:00] VITALS: BP 118/70
[2017-06-05 23:00] VITALS: BP 98/60
[2017-06-06 05:09] LABS: ABSOLUTE BASOPHIL COUNT 0 /CUMM (0.0-0.2); ABSOLUTE EOSINOPHIL COUNT 0 /CUMM (0.0-0.7); ABSOLUTE GRANULOCYTE CT 2.6 /CUMM (1.4-6.5); ABSOLUTE LYMPH COUNT 0.2 /CUMM (1.2-3.4); ABSOLUTE MONOCYTE COUNT 0 /CUMM (0.10-0.60); BASOPHIL % 0 % (0.0-2.0); EOSINOPHIL % 0.1 % (0-5); GRANULOCYTE % 93.4 % (42.2-75.2); HEMATOCRIT 21.7 % (37-47); MEAN CORPUSCULAR HGB 29.6 PG (27.0-31.0); MEAN CORPUSCULAR HGB CONC 32.4 G/DL (33.0-37.0); MEAN CORPUSCULAR VOLUME 91.3 FL (81.0-99.0); MEAN PLATELET VOLUME 11.1 FL (7.4-10.4); PLATELET COUNT 42 /CUMM (130-400); RBC DISTRIBUTION WIDTH 19.1 % (11.5-14.5); RED BLOOD CELL CT 2.37 /CUMM (4.20-5.40); WHITE BLOOD CELL COUNT 2.8 /CUMM (4.8-10.8)
[2017-06-06 05:13] LABS: PT 14.5 SEC (9.4-12.5); PTT 34 SEC (25-37)
--- NOTE | 2017-06-06 07:19 | PN- Cardiology ---
Subjective Subjective: Patient is awake, more somnolent, remains intubated Objective Vital Signs and I&Os Vital Signs Date Time Temp Pulse Resp B/P B/P Pulse O2 O2 Flow FiO2 Mean Ox Delivery Rate 06/06 0557 114 100/63 02/ 0400 96 Ventilator 45% 02/ 0346 45 02 0211 45 06/06 0122 128 92/64 02/ 0000 96 Ventilator 45% 06/05 2300 97.4 124 12 98/60 96 Ventilator 45% 06/05 2234 45 06/05 2134 144 103/75 06/05 1999 96 Ventilator 45% 06/05 1920 45 06/05 1819 99.1 123 20 103/69 02 1818 99.1 02 1652 65 02 1650 100.0 02/ 1600 97 Ventilator 65% 02 1600 100.0 134 16 118/70 97 Ventilator 65% 06/05 1317 65 02/ 1220 99.0 109 18 130/80 02/ 1200 96 Ventilator 40% 06/05 1129 40 06/05 0947 98.3 132 20 128/79 02/ 0947 98.3 132 20 128/79 / 0910 40 / 0800 93 Ventilator 40% 06/05 0800 98.3 111 26 120/62 93 Ventilator 40% Intake & Output 06/06 0800 06/06 0000 06/05 1600 06/05 0800 06/05 0000 06/04 1600 Intake Total 878 969 737 763 916 920 Output Total 382 434 5960 880 700 580 Balance 458 344 -953 -117 216 340 Intake, IV 100 167 143 51 Intake, Oral 0 0 Intake, Other 125 100 Intake, Tube 518 412 487 400 530 420 Feeding Intake, Tube 260 390 125 220 335 400 Irrigant Number 0 0 1 1 Bowel Movements Output, Urine 455 926 0666 880 700 580 Patient 280 lb Weight Weight Bed scale Measurement Method Physical Exam: HEENT-PERRLA No acute distress Neck-unable to assess JVP, no bruits Lungs-decreased BS at both bases,few rhonchi Heart-S1S2 irregular, no murmur Abdomen-soft, obese, not tender, BS+, no organomegaly Extr-dermatitis, trace edema, trace legs edema diminished distal pulses Neuro-non focal Current Medications: Current Medications Sig/Ric Start time Last Medication Dose Route Stop Time Status Admin Acetaminophen 1,000 MG .STK-MED ONE 06/05 1623 DC IV 06/05 1624 Acetaminophen 650 MG Q6P PRN 05/19 0300 AC PO Acetaminophen 1,000 MG Q6P PRN 05/19 0300 AC 06/05 IV 1650 Acetylcysteine 4 ML EVERY 4 HRS/AWAKE 06/02 1600 AC 06/05 INH 2102 Albumin Human 25 GM Q8H 05/24 0822 AC 06/06 IV 0120 Albuterol Sulfate 3 ML EVERY 4 HRS/AWAKE 05/30 0800 AC 06/05 INH 2102 Amiodarone HCl 200 MG DAILY 06/04 1000 AC 06/05 PO 0947 Artificial Tears 2 GTT 4 TIMES/DAY PRN 05/30 0745 AC OPH Ascorbic Acid 500 MG DAILY 05/29 1000 AC 06/05 PO 0947 Ceftazidime 2,000 MG IQ8 06/05 1600 AC 06/06 IV 0120 Ceftazidime 1,000 MG IQ8 06/02 1600 DC 06/05 IV 0837 Diltiazem HCl 60 MG Q6 06/02 1800 AC 06/06 PO 0557 Docusate Sodium 100 MG DAILY AC 05/23 0820 AC 06/05 PO 0604 Furosemide 100 MG Q20H 06/04 0800 AC 06/05 Sodium Chloride 100 ML IV 0448 Glycerin 2 SPRAY Q2P PRN 05/27 0800 AC PO Glycerin/Mineral Oil 1 PEDRITO TID PRN 05/24 1100 AC TOP Insulin Aspart 0 Q4H 05/21 1800 AC 06/06 SC 0554 Insulin Detemir 14 UNITS BID 06/04 1000 AC 06/05 SC 2136 Metoprolol Tartrate 50 MG .STK-MED ONE 06/05 0952 DC PO 06/05 0953 Metoprolol Tartrate 50 MG .STK-MED ONE 06/05 0945 DC PO 06/05 0946 Metoprolol Tartrate 100 MG BID 05/30 1000 AC 06/05 PO 2134 Multivitamins 1 TAB DAILY 05/29 1000 AC 06/05 PO 0947 Pantoprazole Sodium 40 MG BID 06/03 1000 AC 06/05 IV 2136 Polyethylene Glycol 17 GM DAILY 05/23 1000 AC 06/04 PO 1011 Potassium Chloride 40 MEQ DAILY 06/05 1000 AC 06/05 PO 0948 Potassium Chloride 10 MEQ Q1H 06/05 0700 DC 06/05 IV 06/05 0801 1118 Prednisone 80 MG DAILY 06/02 1000 AC 06/05 PO 1220 Zinc Sulfate 220 MG DAILY 05/29 1000 AC 06/05 PO 0947 Results Last 48 Hrs of Labs/Mics: Laboratory Tests 06/06/17 0505: pH 7.49 H, pCO2 35, pO2 77 L, HCO3 26, ABG O2 Sat (Measured) 95.0 L, P-50 ( Temp Corrected) Y, Carboxyhemoglobin 0.8 L, O2 Concentration % 45%, Temperature 97.6, Respiration Rate 12, O2 Delivery Method ESPRIT, Vent Mode AC, Expiratory Pressure 5, Tidal Volume 500, Phlebotomy Draw Site RIGHT RADIAL 06/06/17 0355: Anion Gap 16, Estimated GFR 43 L, Glucose 174 H, Calcium 8.7, Phosphorus 3.8, Magnesium 2.0, Total Bilirubin 0.8, AST 14, ALT 23, Albumin 3.6, PT 14.5 H, INR 1.39 H, APTT 34, Fibrinogen Activity 159 L, CBC w Diff NO MAN DIFF REQ, RBC 2.37 L, MCV 91.3, MCH 29.6, MCHC 32.4 L, RDW 19.1 H, MPV 11.1 H, Gran % 93.4 H, Lymphocytes % 5.7 L, Monocytes % 0.8 L, Eosinophils % 0.1, Basophils % 0, Absolute Granulocytes 2.6, Absolute Lymphocytes 0.2 L, Absolute Monocytes 0 L, Absolute Eosinophils 0, Absolute Basophils 0 06/05/17 1603: Urine Color Cancelled, Urine Clarity Cancelled, Urine pH Cancelled, Ur Specific [place] Cancelled, Urine Protein Cancelled, Urine Ketones Cancelled, Urine Nitrite Cancelled, Urine Bilirubin Cancelled, Urine Urobilinogen Cancelled, Ur Leukocyte Esterase Cancelled, Ur Microscopic Cancelled, Urine Hemoglobin Cancelled, Urine Glucose Cancelled 06/05/17 1420: CBC w Diff NO MAN DIFF REQ, RBC 2.56 L, MCV 90.5, MCH 29.3, MCHC 32.4 L, RDW 19.2 H, MPV 10.4, Gran % 97.7 H, Lymphocytes % 1.7 L, Monocytes % 0.5 L, Eosinophils % 0.1, Basophils % 0, Absolute Granulocytes 4.9, Absolute Lymphocytes 0.1 L, Absolute Monocytes 0 L, Absolute Eosinophils 0, Absolute Basophils 0 06/05/17 0340: Anion Gap 19 H, Estimated GFR 47 L, Glucose 213 H, Calcium 8.8, Phosphorus 3.7, Magnesium 2.0, Total Bilirubin 0.6, AST 13 L, ALT 23, Albumin 3.8, PT 13.8 H, INR 1.32 H, APTT 34, Fibrinogen Activity 152 L, CBC w Diff NO MAN DIFF REQ , RBC 2.52 L, MCV 91.3, MCH 29.7, MCHC 32.5 L, RDW 19.2 H, MPV 10.2, Gran % 93.9 H, Lymphocytes % 4.9 L, Monocytes % 1.2 L, Eosinophils % 0, Basophils % 0, Absolute Granulocytes 3.3, Absolute Lymphocytes 0.2 L, Absolute Monocytes 0 L, Absolute Eosinophils 0, Absolute Basophils 0 Assessment/Plan Assessment/Plan 1. Acute hypoxic respiratory failure/septic shock secondary to MSSA PNA. Now reintubated, recurrent pneumonia-sputum positive for pseudomonas-currently on ceftazidime, dose increased by ID. low grade fever yesterday afternoon 2. atrial fibrillation, on oral cardizem, amiodarone, metoprolol, rate acceptable 3. GARCÍA-increased BUN, creatinine with hypotension suggestive of intravascular volume depletion 4.Pancytopenia-likely secondary to sepsis 5. Anemia- worse today Plan: agree to hold on diuresis today if she remains hypotensive, I would stop cardizem and increase amiodarone to 200 mg tid for rate control daily weights CXR tomorrow transfuse [id number] Continue telemetry? Yes
--- NOTE | 2017-06-06 07:34 | PN- Diabetes ---
Assessment/Plan Assessment: Patient is now reintubated. She is on a respirator and sedated. Her steroid dose is prednisone 80 mg once a day. Sputum culture is positive for pseudomonas. Patient's antibiotics have been adjusted. She is presently on 14 units of Levemir twice a day. Her tube feedingsis at 65 mL/h. She is also on every 4 hour NovoLog coverage. Most recent fingerstick blood sugar is 203. The patient's serum sodium is 142. Her creatinine has gone down to 1.0 with a BUN of 77.. She is receiving free water flushes via feeding tube. The patient is being treated with a Lasix drip for pulmonary edema. This was stopped yesterday afternoon. Unfortunately the patient's chest x-ray is not improving. Also her blood pressure is becoming low. Plan: Suggest continue the same insulin. The blood sugars are in satisfactory control. Subjective Subjective: Intubated and sedated Objective Last 24 Hrs of Vital Signs/I&O Vital Signs Date Time Temp Pulse Resp B/P B/P Pulse O2 O2 Flow FiO2 Mean Ox Delivery Rate 06/06 0557 114 100/63 02/02 0400 96 Ventilator 45% 02/ 0346 45 02/ 0211 45 02/ 0122 128 92/64 02/02 0000 96 Ventilator 45% 02/ 2300 97.4 124 12 98/60 96 Ventilator 45% 02/ 2234 45 02/01 2134 144 103/75 02/01 2000 96 Ventilator 45% 02/01 1920 45 02/01 1819 99.1 123 20 103/69 02/01 1818 99.1 02/01 1652 65 02/01 1650 100.0 02/01 1600 97 Ventilator 65% 02/01 1600 100.0 134 16 118/70 97 Ventilator 65% 02/01 1317 65 02/01 1220 99.0 109 18 130/80 02/01 1200 96 Ventilator 40% 02/01 1129 40 02/01 0947 98.3 132 20 128/79 02/01 0947 98.3 132 20 128/79 02/01 0910 40 02/01 0800 93 Ventilator 40% 02/ 0800 98.3 111 26 120/62 93 Ventilator 40% Intake & Output / 0800 02/02 0000 02/01 1600 Intake Total 878 969 737 Output Total 424 421 8621 Balance 458 344 -953 Intake, IV 100 167 Intake, Oral 0 0 Intake, Other 125 Intake, Tube 518 412 487 Feeding Intake, Tube 260 390 125 Irrigant Number 0 0 1 Bowel Movements Output, Urine 049 286 7616 Vital Signs Date Time Temp Pulse Resp B/P B/P Pulse O2 O2 Flow FiO2 Mean Ox Delivery Rate 06/06 0557 114 100/63 02/ 0400 96 Ventilator 45% 06/06 0346 45 06/06 0211 45 06/06 0122 128 92/64 06/06 0000 96 Ventilator 45% 02/ 2300 97.4 124 12 98/60 96 Ventilator 45% / 2234 45 06/05 2134 144 103/75 06/05 1999 96 Ventilator 45% / 1920 45 06/05 1819 99.1 123 20 103/69 02/ 1818 99.1 / 1652 65 02/ 1650 100.0 02/ 1600 97 Ventilator 65% 02/ 1600 100.0 134 16 118/70 97 Ventilator 65% 02/ 1317 65 02/ 1220 99.0 109 18 130/80 02/ 1200 96 Ventilator 40% 02/ 1129 40 02/ 0947 98.3 132 20 128/79 02/ 0947 98.3 132 20 128/79 02/ 0910 40 02/ 0800 93 Ventilator 40% / 0800 98.3 111 26 120/62 93 Ventilator 40% Intake & Output 06/06 0800 / 0000 06/05 1600 Intake Total 878 969 737 Output Total 707 332 0150 Balance 458 344 -953 Intake, IV 100 167 Intake, Oral 0 0 Intake, Other 125 Intake, Tube 518 412 487 Feeding Intake, Tube 260 390 125 Irrigant Number 0 0 1 Bowel Movements Output, Urine [phone] Current Medications: Current Medications Sig/Ric Start time Last Medication Dose Route Stop Time Status Admin Acetaminophen 1,000 MG .STK-MED ONE 06/05 1623 DC IV 06/05 1624 Acetaminophen 650 MG Q6P PRN 05/19 030 AC PO Acetaminophen 1,000 MG Q6P PRN 05/19 0300 AC 06/05 IV 1650 Acetylcysteine 4 ML EVERY 4 HRS/AWAKE 06/02 1600 AC 06/05 INH 2102 Albumin Human 25 GM Q8H 05/24 0822 AC 06/06 IV 0120 Albuterol Sulfate 3 ML EVERY 4 HRS/AWAKE 05/30 0800 AC 06/05 INH 2102 Amiodarone HCl 200 MG DAILY 06/04 1000 AC 06/05 PO 0947 Artificial Tears 2 GTT 4 TIMES/DAY PRN 05/30 0745 AC OPH Ascorbic Acid 500 MG DAILY 05/29 1000 AC 06/05 PO 0947 Ceftazidime 2,000 MG IQ8 06/05 1600 AC 06/06 IV 0120 Ceftazidime 1,000 MG IQ8 06/02 1600 DC 06/05 IV 0837 Diltiazem HCl 60 MG Q6 06/02 1800 AC 06/06 PO 0557 Docusate Sodium 100 MG DAILY AC 05/23 0820 AC 06/05 PO 0604 Furosemide 100 MG Q20H 06/04 0800 AC 06/05 Sodium Chloride 100 ML IV 0448 Glycerin 2 SPRAY Q2P PRN 05/27 0800 AC PO Glycerin/Mineral Oil 1 PEDRITO TID PRN 05/24 1100 AC TOP Insulin Aspart 0 Q4H 05/21 1800 AC 06/06 SC 0554 Insulin Detemir 14 UNITS BID 06/04 1000 AC 06/05 SC 2136 Metoprolol Tartrate 50 MG .STK-MED ONE 06/05 0952 DC PO 06/05 0953 Metoprolol Tartrate 50 MG .STK-MED ONE 06/05 0945 DC PO 06/05 0946 Metoprolol Tartrate 100 MG BID 05/30 1000 AC 06/05 PO 2134 Multivitamins 1 TAB DAILY 05/29 1000 AC 06/05 PO 0947 Pantoprazole Sodium 40 MG BID 06/03 1000 AC 06/05 IV 2136 Polyethylene Glycol 17 GM DAILY 05/23 1000 AC 06/04 PO 1011 Potassium Chloride 40 MEQ DAILY 06/05 1000 AC 06/05 PO 0948 Potassium Chloride 10 MEQ Q1H 06/05 0700 DC 06/05 IV 06/05 0801 1118 Prednisone 80 MG DAILY 06/02 1000 AC 06/05 PO 1220 Zinc Sulfate 220 MG DAILY 05/29 1000 DC 06/05 PO 0947 Findings Pertinent Lab/Silvano Results: Laboratory Tests 06/06 06/06 0505 0355 Blood Gas pH (7.35 - 7.45 PH) 7.49 H pCO2 (35 - 45 TORR) 35 pO2 (80 - 100 TORR) 77 L HCO3 (21 - 28 MEQ/L) 26 ABG O2 Sat (Measured) (>96.0 %) 95.0 L P-50 (Temp Corrected) Y Carboxyhemoglobin (1.5 - 5.0 %) 0.8 L O2 Concentration % 45% Temperature (97.0 - 100.0 FARH) 97.6 Respiration Rate (BPM) 12 O2 Delivery Method ESPRIT Vent Mode AC Expiratory Pressure (CMH2O/P) 5 Tidal Volume (CC) 500 Chemistry Sodium (137 - 145 mmol/L) 142 Potassium (3.5 - 5.1 mmol/L) 3.8 Chloride (98 - 107 mmol/L) 98 Carbon Dioxide (22 - 30 mmol/L) 29 Anion Gap (5 - 16) 16 BUN (7 - 17 mg/dL) 89 H Creatinine (0.5 - 1.0 mg/dL) 1.2 H Estimated GFR (>60 ml/min) 43 L Glucose (65 - 99 mg/dL) 174 H Calcium (8.4 - 10.2 mg/dL) 8.7 Phosphorus (2.5 - 4.5 mg/dL) 3.8 Magnesium (1.6 - 2.3 mg/dL) 2.0 Total Bilirubin (0.2 - 1.3 mg/dL) 0.8 AST (14 - 36 U/L) 14 ALT (9 - 52 U/L) 23 Albumin (3.5 - 5.0 g/dL) 3.6 Coagulation PT (9.4 - 12.5 SEC) 14.5 H INR (0.90 - 1.19) 1.39 H APTT (25 - 37 SEC) 34 Fibrinogen Activity (200 - 393 MG/DL) 159 L Hematology CBC w Diff NO MAN DIFF REQ WBC (4.8 - 10.8 /CUMM) 2.8 L RBC (4.20 - 5.40 /CUMM) 2.37 L Hgb (12.0 - 16.0 G/DL) 7.0 *L Hct (37 - 47 %) 21.7 L MCV (81.0 - 99.0 FL) 91.3 MCH (27.0 - 31.0 PG) 29.6 MCHC (33.0 - 37.0 G/DL) 32.4 L RDW (11.5 - 14.5 %) 19.1 H Plt Count (130 - 400 /CUMM) 42 L MPV (7.4 - 10.4 FL) 11.1 H Gran % (42.2 - 75.2 %) 93.4 H Lymphocytes % (20.5 - 51.1 %) 5.7 L Monocytes % (1.7 - 9.3 %) 0.8 L Eosinophils % (0 - 5 %) 0.1 Basophils % (0.0 - 2.0 %) 0 Absolute Granulocytes (1.4 - 6.5 /CUMM) 2.6 Absolute Lymphocytes (1.2 - 3.4 /CUMM) 0.2 L Absolute Monocytes (0.10 - 0.60 /CUMM) 0 L Absolute Eosinophils (0.0 - 0.7 /CUMM) 0 Absolute Basophils (0.0 - 0.2 /CUMM) 0 Miscellaneous Phlebotomy Draw Site RIGHT RADIAL 06/05 06/05 5310 1420 Hematology CBC w Diff NO MAN DIFF REQ WBC (4.8 - 10.8 /CUMM) 5.0 RBC (4.20 - 5.40 /CUMM) 2.56 L Hgb (12.0 - 16.0 G/DL) 7.5 L Hct (37 - 47 %) 23.2 L MCV (81.0 - 99.0 FL) 90.5 MCH (27.0 - 31.0 PG) 29.3 MCHC (33.0 - 37.0 G/DL) 32.4 L RDW (11.5 - 14.5 %) 19.2 H Plt Count (130 - 400 /CUMM) 55 L MPV (7.4 - 10.4 FL) 10.4 Gran % (42.2 - 75.2 %) 97.7 H Lymphocytes % (20.5 - 51.1 %) 1.7 L Monocytes % (1.7 - 9.3 %) 0.5 L Eosinophils % (0 - 5 %) 0.1 Basophils % (0.0 - 2.0 %) 0 Absolute Granulocytes (1.4 - 6.5 /CUMM) 4.9 Absolute Lymphocytes (1.2 - 3.4 /CUMM) 0.1 L Absolute Monocytes (0.10 - 0.60 /CUMM) 0 L Absolute Eosinophils (0.0 - 0.7 /CUMM) 0 Absolute Basophils (0.0 - 0.2 /CUMM) 0 Urines Urine Color Cancelled Urine Clarity Cancelled Urine pH Cancelled Ur Specific [place] Cancelled Urine Protein Cancelled Urine Ketones Cancelled Urine Nitrite Cancelled Urine Bilirubin Cancelled Urine Urobilinogen Cancelled Ur Leukocyte Esterase Cancelled Ur Microscopic Cancelled Urine Hemoglobin Cancelled Urine Glucose Cancelled
--- NOTE | 2017-06-06 07:58 | PN- Hematology ---
Subjective Subjective: She remains intubated and sedated. She has no fever or chills. She is awake and alert. She follows commands. Review of Systems: Limited secondary to intubation. Denies pain. Objective Vital Signs and I&Os Vital Signs Date Time Temp Pulse Resp B/P B/P Pulse O2 O2 Flow FiO2 Mean Ox Delivery Rate 06/06 0557 114 100/63 02/ 0400 96 Ventilator 45% 06/06 0346 45 06/06 0211 45 06/06 0122 128 92/64 06/06 0000 96 Ventilator 45% 06/05 2300 97.4 124 12 98/60 96 Ventilator 45% 06/05 2234 45 02 2134 144 103/75 06/05 2000 96 Ventilator 45% 06/05 1920 45 02 1819 99.1 123 20 103/69 02/ 1818 99.1 02/ 1652 65 02/ 1650 100.0 02/ 1600 97 Ventilator 65% 02/ 1600 100.0 134 16 118/70 97 Ventilator 65% 06/05 1317 65 02/ 1220 99.0 109 18 130/80 02/ 1200 96 Ventilator 40% 02/ 1129 40 02/ 0947 98.3 132 20 128/79 02/ 0947 98.3 132 20 128/79 02/ 0910 40 / 0800 93 Ventilator 40% 06/05 0800 98.3 111 26 120/62 93 Ventilator 40% Intake & Output 06/06 0800 06/06 0000 02/ 1600 / 0800 06/05 0000 06/04 1600 Intake Total 878 969 737 763 916 920 Output Total 383 251 5769 880 700 580 Balance 458 344 -953 -117 216 340 Intake, IV 100 167 143 51 Intake, Oral 0 0 Intake, Other 125 100 Intake, Tube 518 412 487 400 530 420 Feeding Intake, Tube 260 390 125 220 335 400 Irrigant Number 0 0 1 1 Bowel Movements Output, Urine 494 301 6107 880 700 580 Patient 127.006 kg Weight Weight Bed scale Measurement Method Physical Exam: General Appearance: awake, comfortable, intubated Ears, Nose, Throat: ET tube in place Respiratory: chest non-tender, rhonchi, decrease BS on left,FiO2 45% Cardiovascular: tachycardia, irregularly irregular Abdomen: normal bowel sounds, soft, non-tender Extremities: bilateral upper extremity (trace LUE, 1+ RUE), ecchymoses in upper extremities, hyperpigmented lower extremities, RUE with PICC line Skin: dry Neurologic/Psychiatric: awake, follows commands, intubated Current Medications: Current Medications Sig/Ric Start time Last Medication Dose Route Stop Time Status Admin Acetaminophen 1,000 MG .STK-MED ONE 06/05 1623 DC IV 06/05 1624 Acetaminophen 650 MG Q6P PRN 05/19 0300 AC PO Acetaminophen 1,000 MG Q6P PRN 05/19 0300 AC 06/05 IV 1650 Acetylcysteine 4 ML EVERY 4 HRS/AWAKE 06/02 1600 AC 06/05 INH 2102 Albumin Human 25 GM Q8H 05/24 0822 AC 06/06 IV 0120 Albuterol Sulfate 3 ML EVERY 4 HRS/AWAKE 05/30 0800 AC 06/05 INH 2102 Amiodarone HCl 200 MG DAILY 06/04 1000 AC 06/05 PO 0947 Artificial Tears 2 GTT 4 TIMES/DAY PRN 05/30 0745 AC OPH Ascorbic Acid 500 MG DAILY 05/29 1000 AC 06/05 PO 0947 Ceftazidime 2,000 MG IQ8 06/05 1600 AC 06/06 IV 0120 Ceftazidime 1,000 MG IQ8 06/02 1600 DC 06/05 IV 0837 Diltiazem HCl 60 MG Q6 06/02 1800 AC 06/06 PO 0557 Docusate Sodium 100 MG DAILY AC 05/23 0820 AC 06/05 PO 0604 Furosemide 100 MG Q20H 06/04 0800 AC 06/05 Sodium Chloride 100 ML IV 0448 Glycerin 2 SPRAY Q2P PRN 05/27 0800 AC PO Glycerin/Mineral Oil 1 PEDRITO TID PRN 05/24 1100 AC TOP Insulin Aspart 0 Q4H 05/21 1800 AC 06/06 SC 0554 Insulin Detemir 14 UNITS BID 06/04 1000 AC 06/05 SC 2136 Metoprolol Tartrate 50 MG .STK-MED ONE 06/05 0952 DC PO 06/05 0953 Metoprolol Tartrate 50 MG .STK-MED ONE 06/05 0945 DC PO 06/05 0946 Metoprolol Tartrate 100 MG BID 05/30 1000 AC 06/05 PO 2134 Multivitamins 1 TAB DAILY 05/29 1000 AC 06/05 PO 0947 Pantoprazole Sodium 40 MG BID 06/03 1000 AC 06/05 IV 2136 Polyethylene Glycol 17 GM DAILY 05/23 1000 AC 06/04 PO 1011 Potassium Chloride 40 MEQ DAILY 06/05 1000 AC 06/05 PO 0948 Potassium Chloride 10 MEQ Q1H 06/05 0700 DC 06/05 IV 06/05 0801 1118 Prednisone 80 MG DAILY 06/02 1000 AC 06/05 PO 1220 Zinc Sulfate 220 MG DAILY 05/29 1000 DC 06/05 PO 0947 Results Last 24 Hours of Lab Results: Laboratory Tests 06/06 06/06 0505 0355 Blood Gas pH (7.35 - 7.45 PH) 7.49 H pCO2 (35 - 45 TORR) 35 pO2 (80 - 100 TORR) 77 L HCO3 (21 - 28 MEQ/L) 26 ABG O2 Sat (Measured) (>96.0 %) 95.0 L P-50 (Temp Corrected) Y Carboxyhemoglobin (1.5 - 5.0 %) 0.8 L O2 Concentration % 45% Temperature (97.0 - 100.0 FARH) 97.6 Respiration Rate (BPM) 12 O2 Delivery Method ESPRIT Vent Mode AC Expiratory Pressure (CMH2O/P) 5 Tidal Volume (CC) 500 Chemistry Sodium (137 - 145 mmol/L) 142 Potassium (3.5 - 5.1 mmol/L) 3.8 Chloride (98 - 107 mmol/L) 98 Carbon Dioxide (22 - 30 mmol/L) 29 Anion Gap (5 - 16) 16 BUN (7 - 17 mg/dL) 89 H Creatinine (0.5 - 1.0 mg/dL) 1.2 H Estimated GFR (>60 ml/min) 43 L Glucose (65 - 99 mg/dL) 174 H Calcium (8.4 - 10.2 mg/dL) 8.7 Phosphorus (2.5 - 4.5 mg/dL) 3.8 Magnesium (1.6 - 2.3 mg/dL) 2.0 Total Bilirubin (0.2 - 1.3 mg/dL) 0.8 AST (14 - 36 U/L) 14 ALT (9 - 52 U/L) 23 Albumin (3.5 - 5.0 g/dL) 3.6 Coagulation PT (9.4 - 12.5 SEC) 14.5 H INR (0.90 - 1.19) 1.39 H APTT (25 - 37 SEC) 34 Fibrinogen Activity (200 - 393 MG/DL) 159 L Hematology CBC w Diff NO MAN DIFF REQ WBC (4.8 - 10.8 /CUMM) 2.8 L RBC (4.20 - 5.40 /CUMM) 2.37 L Hgb (12.0 - 16.0 G/DL) 7.0 *L Hct (37 - 47 %) 21.7 L MCV (81.0 - 99.0 FL) 91.3 MCH (27.0 - 31.0 PG) 29.6 MCHC (33.0 - 37.0 G/DL) 32.4 L RDW (11.5 - 14.5 %) 19.1 H Plt Count (130 - 400 /CUMM) 42 L MPV (7.4 - 10.4 FL) 11.1 H Gran % (42.2 - 75.2 %) 93.4 H Lymphocytes % (20.5 - 51.1 %) 5.7 L Monocytes % (1.7 - 9.3 %) 0.8 L Eosinophils % (0 - 5 %) 0.1 Basophils % (0.0 - 2.0 %) 0 Absolute Granulocytes (1.4 - 6.5 /CUMM) 2.6 Absolute Lymphocytes (1.2 - 3.4 /CUMM) 0.2 L Absolute Monocytes (0.10 - 0.60 /CUMM) 0 L Absolute Eosinophils (0.0 - 0.7 /CUMM) 0 Absolute Basophils (0.0 - 0.2 /CUMM) 0 Miscellaneous Phlebotomy Draw Site RIGHT RADIAL 06/05 06/05 1603 1420 Hematology CBC w Diff NO MAN DIFF REQ WBC (4.8 - 10.8 /CUMM) 5.0 RBC (4.20 - 5.40 /CUMM) 2.56 L Hgb (12.0 - 16.0 G/DL) 7.5 L Hct (37 - 47 %) 23.2 L MCV (81.0 - 99.0 FL) 90.5 MCH (27.0 - 31.0 PG) 29.3 MCHC (33.0 - 37.0 G/DL) 32.4 L RDW (11.5 - 14.5 %) 19.2 H Plt Count (130 - 400 /CUMM) 55 L MPV (7.4 - 10.4 FL) 10.4 Gran % (42.2 - 75.2 %) 97.7 H Lymphocytes % (20.5 - 51.1 %) 1.7 L Monocytes % (1.7 - 9.3 %) 0.5 L Eosinophils % (0 - 5 %) 0.1 Basophils % (0.0 - 2.0 %) 0 Absolute Granulocytes (1.4 - 6.5 /CUMM) 4.9 Absolute Lymphocytes (1.2 - 3.4 /CUMM) 0.1 L Absolute Monocytes (0.10 - 0.60 /CUMM) 0 L Absolute Eosinophils (0.0 - 0.7 /CUMM) 0 Absolute Basophils (0.0 - 0.2 /CUMM) 0 Urines Urine Color Cancelled Urine Clarity Cancelled Urine pH Cancelled Ur Specific [place] Cancelled Urine Protein Cancelled Urine Ketones Cancelled Urine Nitrite Cancelled Urine Bilirubin Cancelled Urine Urobilinogen Cancelled Ur Leukocyte Esterase Cancelled Ur Microscopic Cancelled Urine Hemoglobin Cancelled Urine Glucose Cancelled Assessment/Plan Assessment/Recommendations: Ms. 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 She has been having new cough a few days ago. CTA demonstrated moderate atelectasis/consolidation in the left upper and lower lobes. There was mild right base atelectasis and moderate left and [id number] right pleural effusions. She was briefly in shock and required Levophed. She was improving on Oxacillin. She was on Zosyn and is now on ceftazidime. She remains in atrial fibrillation with RVR. She is on metoprolol, amiodarone, and diltiazem. She remains intubated and on FiO2 of 40%. Pancytopenia continues to worsen. It is unclear if this is truly all related to infectious and ITP etiologies. Medication induced pancytopenia is more likely given the trend. Antibiotic is of a common cause. Ceftazidime does rarely cause agranulocytosis. If possible, she should have this switched or discontinued. Zinc overload may also cause copper deficiency triggering pancytopenia. Zinc should be discontinued for now. If her platelet drops below 30,000, her steroid may be increased and trial of platelet transfusion may be done for bleeding. Overall picture suggest multifactorial process. Pancytopenia: -Continue prednisone 80 mg daily -Continue to monitor DIC: fibrinogen and INR -Discontinue Zinc -Consider discontinuing antibiotic or change antibiotic -Consider ERMA in the future for anemia of chronic disease -Continue to hold apixaban -consider trial of platelet transfusion and high dose dexamethasone if bleeding and platelet count <30,000 Acute hypoxic respiratory failure: -Management as per primary ICU team Atrial fibrillation with RVR: -Management as per cardiology -medications: amiodarone, diltiazem, metoprolol Please call [phone] with any questions or concerns. Problem List: 1. Pancytopenia 2. Pneumonia 3. Atrial fibrillation with RVR
[2017-06-06 08:00] VITALS: BP 110/56
--- NOTE | 2017-06-06 08:19 | RADIOLOGY REPORT ---
EXAMINATION: XR PORTABLE CHEST CLINICAL INFORMATION: Pneumonia. Pulmonary edema. Tubes and lines. COMPARISON: 06/05/2017 TECHNIQUE: Portable frontal view of the chest was obtained. FINDINGS: Endotracheal tube is approximately 4.8 cm above the krystal. The enteric tube extends below the diaphragm, into the stomach and beyond the [id number]. The tip of the right arm peripherally inserted catheter is in the region of the superior vena cava and right atrial junction. Again noted are findings of cardiomegaly, pulmonary vascular congestion with probable edema, pleural effusions and bibasilar pulmonary opacities. No pneumothorax or other interval change. IMPRESSION: 1. Tubes and lines are in satisfactory position. 2. Pulmonary disease and small pleural effusions are not appreciably changed compared to 06/05/2017.
--- NOTE | 2017-06-06 08:58 | PN- Resident CRCU ---
Jaron RAMOS,[facility] 06/06/17 0857: Subjective HPI/CRCU Issues: Atrial Fibrilliation Thrombocytopenia Acute Hypoxic Respiratory Failure 24 Hour Events: Episodes of hypotension overnight and Lasix drip was discontinued. Her Hb dropped this morning to 7.0. Overall she has pancytopenic picture. Will give her 1 unit of pRBC this morning. Objective Vital Signs & I&O Last 8 Hrs of Vitals and I&O: . Exam General Appearance: alert, awake, intubated, mild distress Head: atraumatic, normal appearance Respiratory: chest non-tender, rhonchi Cardiovascular: tachycardia, irregularly irregular Gastrointestinal: soft, non-tender Extremities: edema of right upper and lower extremities. Cranial Nerves: normal hearing Skin: intact Skin Temp/Moisture Exam: Warm/Dry Sepsis Skin Exam (color): Normal for Ethnicity Weaning Parameters NIF: 20 Minute Volume: 12.2 Resp rate: 36 Vt: 340 Heart Rate: 104 Weaning Schedule Start Time: 1035 Minute Volume: 13.0 Resp Rate: 35 Vt: 375 Heart Rate: 120 End Time: 1050 Minute Volume: 13.5 Resp Rate: 45 Vt: 300 Heart Rate: 140 Current Medications: Current Medications Sig/Ric Start time Last Medication Dose Route Stop Time Status Admin Acetaminophen 1,000 MG .STK-MED ONE 06/05 1623 DC IV 06/05 1624 Acetaminophen 650 MG Q6P PRN 05/19 0300 AC PO Acetaminophen 1,000 MG Q6P PRN 05/19 0300 AC 06/05 IV 1650 Acetylcysteine 4 ML EVERY 4 HRS/AWAKE 06/02 1600 AC 06/06 INH 0847 Albumin Human 25 GM Q8H 05/24 0822 AC 06/06 IV 0902 Albuterol Sulfate 3 ML EVERY 4 HRS/AWAKE 05/30 0800 AC 06/06 INH 0847 Amiodarone HCl 200 MG DAILY 06/04 1000 AC 06/06 PO 1051 Artificial Tears 2 GTT 4 TIMES/DAY PRN 05/30 0745 AC OPH Ascorbic Acid 500 MG DAILY 05/29 1000 AC 06/06 PO 1051 Ceftazidime 2,000 MG IQ8 06/05 1600 AC 06/06 IV 0855 Ceftazidime 1,000 MG IQ8 06/02 1600 DC 06/05 IV 0837 Diltiazem HCl 60 MG Q6 06/02 1800 AC 06/06 PO 0557 Diphenhydramine HCl 50 MG ONCE ONE 06/06 0800 DC 06/06 IV 06/06 0801 1053 Docusate Sodium 100 MG DAILY AC 05/23 0820 AC 06/05 PO 0604 Furosemide 100 MG Q20H 06/04 0800 AC 06/05 Sodium Chloride 100 ML IV 0448 Glycerin 2 SPRAY Q2P PRN 05/27 0800 AC PO Glycerin/Mineral Oil 1 PEDRITO TID PRN 05/24 1100 AC TOP Insulin Aspart 0 Q4H 05/21 1800 AC 06/06 SC 1049 Insulin Detemir 14 UNITS BID 06/04 1000 AC 06/06 SC 1049 Methylprednisolone 40 MG ONCE ONE 06/06 0900 DC 06/06 IV 06/06 0901 1053 Methylprednisolone 80 MG ONCE ONE 06/06 0800 CAN IV 06/06 0801 Metoprolol Tartrate 100 MG BID 05/30 1000 AC 06/05 PO 2134 Multivitamins 1 TAB DAILY 05/29 1000 AC 06/06 PO 1051 Pantoprazole Sodium 40 MG BID 06/03 1000 AC 06/06 IV 1051 Polyethylene Glycol 17 GM DAILY 05/23 1000 AC 06/06 PO 1052 Potassium Chloride 40 MEQ DAILY 06/05 1000 AC 06/06 PO 1050 Prednisone 80 MG DAILY 06/02 1000 AC 06/06 PO 1050 Zinc Sulfate 220 MG DAILY 05/29 1000 DC 06/05 PO 0947 Impression/Plan Impression/Problem List Impression: 86 year old woman with past medical history of hypertension, hyperlipidemia, [place] s/p PCI with stent, diabetes mellitus, and restless leg syndrome, history of atrial fibrillation with anticoagulation on hold due to severe thrombocytopenia was sent in from extended care facility for hypoxia, leukocytosis and productive cough. She was admitted on telemetry floor and transfered to ICU after patient desaturated became unresponsive. Assessment and Plan: Acute hypoxic respiratory failure likely secondary to HCAP: * Her white count has normalized and she's been afebrile. Her repeat sputum culture is growing Pseudomonas sensitive to Ceftazidime. * Her CXR today shows no change from yesterday. She appears to have chronic left lower lobe collapse. Will further decrease her free water flushes to reduce risk of pulmonary edema. * Continue Ceftazidime 2g q8. * Reintubated again since 05/28. * ID recs appreciated. * Continue mucomist BID nebs and aggressive pulmonary toilet. * She has a rising BUN, which could be steroid induced. * Goals of care was discussed with family. They want to pursue everything for now. Atrial Fibrilliation: * Will continue metoprolol 100mg BID. * Continue oral Amiodarone at 200mg QD. * Continue Cardizem 60mg q6. Can be decreased to 30mg if not tolerated by blood pressure. * Discontinued Elliquis 2.5mg BID as Plt count is falling. * Echo - Normal left ventricular ejection fraction visually estimated at > 60% . Immune Thrombocytopenia: * Her platelets continue to decline for past few days. Could be likely due to her reinfection. * Continue Prednisone again to 80mg. * Daily CBC * s/p 1 unit transfusion of platelets 05/22. 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 * Will continue to follow DIC panel. * Can transfuse Plt or IVIG if Plt <30K and actively bleeding. GARCÍA on CKD: /resolved * Cr 1.2 today. * Was likely contrast induced nephropathy initially. * Nephro recs appreciated. * Strict I&Os. Diabetes Mellitus: * Continue tube feeds with Glucerna 1.2. Will go down on the water flushes. * Levemir 14mg BID * Insulin SS. Adjusted per Endo's recommendations. Lower Extremity Skin Changes: /resolved * Was evaluated by vascular surgery. Recommend no surgical intervention at this time. * Small ulcer on left/right foot base. Wound care notes appreciated. History of restless leg syndrome: * Sinemet was recently discontinued * Lyrica on hold currently. * Lubriderm to affected skin. DVT Prophylaxis: ALPS Code: Full Problem List: 1. A-fib Pain Ratin Tomorrow's Labs & Rationales: CBC, ICU bundle, DIC panel Plan DVT/Prophylaxis: Jordi Trujillo MD 06/06/17 0928: Attending MD Review Statement Attending Sign Off Attending Cosign Statement: I have: examined this patient, reviewed avalbl EMR data, personally reviewd images, discussd w/resident/PA/PLUMBING ENGINEER, discussed mgmt plan w/ida, discussed mgmt plan w/CM, discussed mgmt plan w/pt, agreed w/resident/PA/PLUMBING ENGINEER, amended to note. Other Findings: IJordi M.D. have examined this patient, reviewed available EMR data, personally reviewed images, discussed with resident/PA/PLUMBING ENGINEER, discussed management plan with housestaff and nursing staff, discussed managment plan all of healthcare providers, discussed management plan with patient and/or family, agreed with resident/PA/PLUMBING ENGINEER. The past history and parts of the chart have been autopopulated. Impression 86 year old woman resolved septic shock a.fib RVR acute hypoxemic respiratory failure GARCÍA improved anemia Plan -monitor dic panels, anemia - doubt gi bleed, if persists will call GI consultation -cont mechanical ventilation - SBT trials -ID f/u - on ceftazadime -cardiology, ID f/u -f/u hematology recommendations, stress steroids can be tapered per heme -endocrinology appreciated -nephrology consultation appreciated -if no improvement will discuss option of trach early next week DVT prophylaxis at all times TTS 35 min
--- NOTE | 2017-06-06 12:37 | PN- Infect Dx ---
Subjective Subjective: MAXIMUM TEMPERATURE 100 on steroids. She does not offer any complaints. Objective Last 24 Hrs of Vital Signs/I&O Vital Signs Date Time Temp Pulse Resp B/P B/P Pulse O2 O2 Flow FiO2 Mean Ox Delivery Rate 06/06 1052 125 101/60 / 1051 125 101/60 /02 0910 45 / 0557 114 100/63 / 0400 96 Ventilator 45% 06/06 0346 45 06/06 0211 45 06/06 0122 128 92/64 02/ 0000 96 Ventilator 45% 06/05 2300 97.4 124 12 98/60 96 Ventilator 45% 06/05 2234 45 02/ 2134 144 103/75 / 2000 96 Ventilator 45% 06/05 1920 45 06/05 1819 99.1 123 20 103/69 / 1818 99.1 / 1652 65 02/ 1650 100.0 / 1600 97 Ventilator 65% 06/05 1600 100.0 134 16 118/70 97 Ventilator 65% 06/05 1317 65 Intake & Output 06/06 1600 06/06 0800 / 0000 Intake Total 878 969 Output Total 420 625 Balance 458 344 Intake, IV 100 167 Intake, Oral 0 0 Intake, Tube 518 412 Feeding Intake, Tube 260 390 Irrigant Number 0 0 Bowel Movements Output, Urine 420 625 Physical Exam Other Physical Findings: She appears comfortable on the ventilator in no acute distress Lungs are clear Heart regular rhythm with no murmur Abdomen is soft, nontender with positive bowel sounds Extremities chronic venous stasis changes both lower extremities; PICC in the right upper extremity with no inflammation at the site Faust catheter remains in place Results Last 24 Hours of Lab Results: Laboratory Tests 06/06 06/06 1100 0505 Blood Gas pH (7.35 - 7.45 PH) 7.49 H pCO2 (35 - 45 TORR) 35 pO2 (80 - 100 TORR) 77 L HCO3 (21 - 28 MEQ/L) 26 ABG O2 Sat (Measured) (>96.0 %) 95.0 L P-50 (Temp Corrected) Y Carboxyhemoglobin (1.5 - 5.0 %) 0.8 L O2 Concentration % 45% Temperature (97.0 - 100.0 FARH) 97.6 Respiration Rate (BPM) 12 O2 Delivery Method ESPRIT Vent Mode AC Expiratory Pressure (CMH2O/P) 5 Tidal Volume (CC) 500 Chemistry Sodium Cancelled Potassium Cancelled Chloride Cancelled Carbon Dioxide Cancelled Anion Gap Cancelled BUN Cancelled Creatinine Cancelled Glucose Cancelled Calcium Cancelled Phosphorus Cancelled Magnesium Cancelled Total Bilirubin Cancelled AST Cancelled ALT Cancelled Albumin Cancelled Miscellaneous Phlebotomy Draw Site RIGHT RADIAL 06/06 06/05 0234 1603 Chemistry Sodium (137 - 145 mmol/L) 142 Potassium (3.5 - 5.1 mmol/L) 3.8 Chloride (98 - 107 mmol/L) 98 Carbon Dioxide (22 - 30 mmol/L) 29 Anion Gap (5 - 16) 16 BUN (7 - 17 mg/dL) 89 H Creatinine (0.5 - 1.0 mg/dL) 1.2 H Estimated GFR (>60 ml/min) 43 L Glucose (65 - 99 mg/dL) 174 H Calcium (8.4 - 10.2 mg/dL) 8.7 Phosphorus (2.5 - 4.5 mg/dL) 3.8 Magnesium (1.6 - 2.3 mg/dL) 2.0 Total Bilirubin (0.2 - 1.3 mg/dL) 0.8 AST (14 - 36 U/L) 14 ALT (9 - 52 U/L) 23 Albumin (3.5 - 5.0 g/dL) 3.6 Coagulation PT (9.4 - 12.5 SEC) 14.5 H INR (0.90 - 1.19) 1.39 H APTT (25 - 37 SEC) 34 Fibrinogen Activity (200 - 393 MG/DL) 159 L Hematology CBC w Diff NO MAN DIFF REQ WBC (4.8 - 10.8 /CUMM) 2.8 L RBC (4.20 - 5.40 /CUMM) 2.37 L Hgb (12.0 - 16.0 G/DL) 7.0 *L Hct (37 - 47 %) 21.7 L MCV (81.0 - 99.0 FL) 91.3 MCH (27.0 - 31.0 PG) 29.6 MCHC (33.0 - 37.0 G/DL) 32.4 L RDW (11.5 - 14.5 %) 19.1 H Plt Count (130 - 400 /CUMM) 42 L MPV (7.4 - 10.4 FL) 11.1 H Gran % (42.2 - 75.2 %) 93.4 H Lymphocytes % (20.5 - 51.1 %) 5.7 L Monocytes % (1.7 - 9.3 %) 0.8 L Eosinophils % (0 - 5 %) 0.1 Basophils % (0.0 - 2.0 %) 0 Absolute Granulocytes (1.4 - 6.5 /CUMM) 2.6 Absolute Lymphocytes (1.2 - 3.4 /CUMM) 0.2 L Absolute Monocytes (0.10 - 0.60 /CUMM) 0 L Absolute Eosinophils (0.0 - 0.7 /CUMM) 0 Absolute Basophils (0.0 - 0.2 /CUMM) 0 Urines Urine Color Cancelled Urine Clarity Cancelled Urine pH Cancelled Ur Specific [place] Cancelled Urine Protein Cancelled Urine Ketones Cancelled Urine Nitrite Cancelled Urine Bilirubin Cancelled Urine Urobilinogen Cancelled Ur Leukocyte Esterase Cancelled Ur Microscopic Cancelled Urine Hemoglobin Cancelled Urine Glucose Cancelled 06/05 1420 Hematology CBC w Diff NO MAN DIFF REQ WBC (4.8 - 10.8 /CUMM) 5.0 RBC (4.20 - 5.40 /CUMM) 2.56 L Hgb (12.0 - 16.0 G/DL) 7.5 L Hct (37 - 47 %) 23.2 L MCV (81.0 - 99.0 FL) 90.5 MCH (27.0 - 31.0 PG) 29.3 MCHC (33.0 - 37.0 G/DL) 32.4 L RDW (11.5 - 14.5 %) 19.2 H Plt Count (130 - 400 /CUMM) 55 L MPV (7.4 - 10.4 FL) 10.4 Gran % (42.2 - 75.2 %) 97.7 H Lymphocytes % (20.5 - 51.1 %) 1.7 L Monocytes % (1.7 - 9.3 %) 0.5 L Eosinophils % (0 - 5 %) 0.1 Basophils % (0.0 - 2.0 %) 0 Absolute Granulocytes (1.4 - 6.5 /CUMM) 4.9 Absolute Lymphocytes (1.2 - 3.4 /CUMM) 0.1 L Absolute Monocytes (0.10 - 0.60 /CUMM) 0 L Absolute Eosinophils (0.0 - 0.7 /CUMM) 0 Absolute Basophils (0.0 - 0.2 /CUMM) 0 Last 24 Hours of [place] Results: Sputum culture June 06 pending with gram stain revealing many white blood cells and many gram-negative rods Recent Imaging Studies: Chest x-ray June 06 reveals cardiomegaly, pulmonary vascular congestion and probable edema, with pleural effusions and bibasilar densities Assessment/Plan Impression: Stable, with temperatures remaining normal, but with worsening pancytopenia, 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 Of note her sputum gram stains continues to reveal white blood cells and gram-negative rods, though this may represent colonization. Suggestion: 1. Discontinue all nonessential medications 2. Follow-up recent sputum culture 3. Further management of her fluid status per Cardiology 4. Further management of her steroids per Hematology 5. Discontinue Ceftazidime 6. Begin Ciprofloxacin 500 mg via the NG tube every 12 hours
[2017-06-06 16:00] VITALS: BP 120/78
[2017-06-06 17:03] LABS: ABSOLUTE BASOPHIL COUNT 0 /CUMM (0.0-0.2); ABSOLUTE EOSINOPHIL COUNT 0 /CUMM (0.0-0.7); ABSOLUTE LYMPH COUNT 0.1 /CUMM (1.2-3.4); ABSOLUTE MONOCYTE COUNT 0 /CUMM (0.10-0.60); BASOPHIL % 0 % (0.0-2.0); EOSINOPHIL % 0 % (0-5); HEMATOCRIT 25.8 % (37-47); MEAN CORPUSCULAR HGB 29.1 PG (27.0-31.0); MEAN CORPUSCULAR HGB CONC 32.2 G/DL (33.0-37.0); MEAN CORPUSCULAR VOLUME 90.4 FL (81.0-99.0); MEAN PLATELET VOLUME 10.8 FL (7.4-10.4); RBC DISTRIBUTION WIDTH 19.1 % (11.5-14.5); RED BLOOD CELL CT 2.85 /CUMM (4.20-5.40); WHITE BLOOD CELL COUNT 4.2 /CUMM (4.8-10.8)
[2017-06-06 17:05] LABS: GRANULOCYTE % 96.5 % (42.2-75.2); PLATELET COUNT 41 /CUMM (130-400)
--- NOTE | 2017-06-06 17:06 | ULTRASOUND REPORT ---
EXAMINATION: US TRIPLEX LOWER EXTREMITY, RIGHT CLINICAL INFORMATION: Right lower extremity swelling. COMPARISON: 04/11/2017 TECHNIQUE: Color-flow triplex imaging with spectral analysis and compression Doppler were performed on the lower extremity. Technically challenging exam. The procedure was performed portably. FINDINGS: Respiratory variation, normal compression and augmented flow are noted throughout the lower extremity. The visualized common femoral vein, superficial femoral vein, profunda femoral vein, popliteal vein and midcalf peroneal and posterior tibial venous segments show no evidence of deep venous thrombosis. There is no Lopez's cyst. Extensive subcutaneous edema. IMPRESSION: Normal triplex scan without evidence of deep venous thrombosis involving the lower extremity.
[2017-06-06 20:22] VITALS: BP 122/82
[2017-06-07] VITALS: BP 106/60
[2017-06-07 05:27] LABS: ABSOLUTE BASOPHIL COUNT 0 /CUMM (0.0-0.2); ABSOLUTE EOSINOPHIL COUNT 0 /CUMM (0.0-0.7); ABSOLUTE GRANULOCYTE CT 3.3 /CUMM (1.4-6.5); ABSOLUTE LYMPH COUNT 0.2 /CUMM (1.2-3.4); ABSOLUTE MONOCYTE COUNT 0 /CUMM (0.10-0.60); BASOPHIL % 0 % (0.0-2.0); EOSINOPHIL % 0 % (0-5); GRANULOCYTE % 94.3 % (42.2-75.2); HEMATOCRIT 25.1 % (37-47); MEAN CORPUSCULAR HGB 29.5 PG (27.0-31.0); MEAN CORPUSCULAR HGB CONC 32.5 G/DL (33.0-37.0); MEAN CORPUSCULAR VOLUME 90.6 FL (81.0-99.0); MEAN PLATELET VOLUME 10.4 FL (7.4-10.4); PT 13.9 SEC (9.4-12.5); PTT 34 SEC (25-37); RBC DISTRIBUTION WIDTH 18.9 % (11.5-14.5); RED BLOOD CELL CT 2.77 /CUMM (4.20-5.40)
[2017-06-07 06:28] LABS: PLATELET COUNT 38 /CUMM (130-400); WHITE BLOOD CELL COUNT 3.5 /CUMM (4.8-10.8)
--- NOTE | 2017-06-07 07:32 | PN- Cardiology ---
Subjective Subjective: Awake, intubated. She reports no complaints Objective Vital Signs and I&Os Vital Signs Date Time Temp Pulse Resp B/P B/P Pulse O2 O2 Flow FiO2 Mean Ox Delivery Rate 06/07 0633 45 02/ 0604 126 17 129/87 02/ 0400 99 Ventilator 45% 02/ 0343 45 02/ 0058 45 02/ 0000 120 16 106/60 02/ 0000 98 Ventilator 45% 02/ 0000 96.0 120 16 106/60 98 Ventilator 45% 06/06 2232 45 06/06 2215 128 28 112/62 06/06 2021 92 Ventilator 40% 06/06 2021 98.3 124 28 122/82 92 Ventilator 40% 06/06 1910 40 06/06 1817 133 104/75 06/06 1800 95 Ventilator 40% 06/06 1653 40 06/06 1600 99.0 118 18 120/78 92 Ventilator 40% 06/06 1600 92 Ventilator 40% 06/06 1452 141 128/85 06/06 1427 40 06/06 1230 126 120/80 06/06 1052 125 101/60 06/06 1051 125 101/60 02 0910 45 06/06 0800 98.4 98 18 110/56 97 Ventilator 45% 06/06 0800 95 Ventilator 45% Intake & Output 06/07 0800 / 0000 06/06 1600 06/06 0800 06/06 0000 06/05 1600 Intake Total 530 124 8867 878 969 737 Output Total 525 755 550 001 750 3805 Balance 683 27 4297 458 344 -953 Intake, Blood 100 350 Product Intake, IV 142 225 100 167 Intake, Oral 0 0 Intake, Other 480 125 Intake, Tube 480 401 509 518 412 487 Feeding Intake, Tube 320 280 260 390 125 Irrigant Number 0 1 1 0 0 1 Bowel Movements Output, 0 Gastric Drainage Output, Urine 525 755 550 922 395 3544 Patient 276 lb 277 lb Weight Weight Bed scale Bed scale Measurement Method Physical Exam: Skin-no rash HEENT-PERRLA No acute distress Neck-unable to assess JVP, no bruits Lungs-clear anteriorly Heart-S1S2 irregular, no murmur Abdomen-soft, obese, not tender, BS+, no organomegaly Extr-dermatitis, trace edema, trace legs edema diminished distal pulses Neuro-non focal Current Medications: Current Medications Sig/Ric Start time Last Medication Dose Route Stop Time Status Admin Acetaminophen 650 MG Q6P PRN 05/19 0300 AC PO Acetaminophen 1,000 MG Q6P PRN 05/19 0300 AC 06/05 IV 1650 Acetylcysteine 4 ML BID 06/06 2200 AC 06/06 INH 2028 Acetylcysteine 4 ML EVERY 4 HRS/AWAKE 06/02 1600 DC 06/06 INH 0847 Albumin Human 25 GM Q8H 05/24 0822 AC 06/07 IV 0001 Albuterol Sulfate 3 ML EVERY 4 HRS/AWAKE 05/30 0800 AC 06/06 INH 2028 Amiodarone HCl 200 MG DAILY 06/04 1000 AC 06/06 PO 1051 Artificial Tears 2 GTT 4 TIMES/DAY PRN 05/30 0745 AC 06/06 OPH 1557 Ascorbic Acid 500 MG DAILY 05/29 1000 AC 06/06 PO 1051 Ceftazidime 2,000 MG IQ8 06/05 1600 DC 06/06 IV 0855 Ciprofloxacin 500 MG 0600,1800 06/07 0600 AC 06/07 PO 06/11 0559 0605 Ciprofloxacin 500 MG BID 06/06 1308 DC 06/06 PO 06/10 1307 1555 Diltiazem HCl 60 MG Q6 06/02 1800 AC 06/07 PO 0604 Diphenhydramine HCl 50 MG ONCE ONE 06/06 0800 DC 06/06 IV 06/06 0801 1053 Docusate Sodium 100 MG DAILY AC 05/23 0820 AC 06/05 PO 0604 Furosemide 20 MG ONCE ONE 06/06 1545 DC 06/06 IV 06/06 1546 1556 Furosemide 100 MG Q20H 06/04 0800 DC 06/05 Sodium Chloride 100 ML IV 0448 Glycerin 2 SPRAY Q2P PRN 05/27 0800 AC PO Glycerin/Mineral Oil 1 PEDRITO TID PRN 05/24 1100 AC 06/06 TOP 1557 Insulin Aspart 0 Q4H 05/21 1800 AC 06/07 SC 0602 Insulin Detemir 14 UNITS BID 06/04 1000 AC 06/06 SC 2214 Methylprednisolone 40 MG ONCE ONE 06/06 0900 DC 06/06 IV 06/06 0901 1053 Methylprednisolone 80 MG ONCE ONE 06/06 0800 CAN IV 06/06 0801 Metoprolol Tartrate 50 MG ONCE ONE 06/06 1430 DC 06/06 PO 06/06 1431 1452 Metoprolol Tartrate 100 MG BID 05/30 1000 AC 06/06 PO 2215 Multivitamins 1 TAB DAILY 05/29 1000 AC 06/06 PO 105 Pantoprazole Sodium 40 MG BID 06/03 1000 AC 06/06 IV 2216 Polyethylene Glycol 17 GM DAILY 05/23 1000 AC 06/06 PO 1052 Potassium Chloride 40 MEQ DAILY 06/05 1000 AC 06/06 PO 1050 Prednisone 80 MG DAILY 06/02 1000 AC 06/06 PO 1050 Results Last 48 Hrs of Labs/Mics: Laboratory Tests 06/07/17 0440: Anion Gap 18 H, Estimated GFR 43 L, Glucose 256 H, Calcium 9.1, Phosphorus 4.0, Magnesium 2.2, Total Bilirubin 0.8, AST 15, ALT 29, Albumin 3.9, PT 13.9 H , INR 1.33 H, APTT 34, Fibrinogen Activity 188 L, CBC w Diff NO MAN DIFF REQ, RBC 2.77 L, MCV 90.6, MCH 29.5, MCHC 32.5 L, RDW 18.9 H, MPV 10.4, Gran % 94.3 H, Lymphocytes % 4.5 L, Monocytes % 1.2 L, Eosinophils % 0, Basophils % 0, Absolute Granulocytes 3.3, Absolute Lymphocytes 0.2 L, Absolute Monocytes 0 L, Absolute Eosinophils 0, Absolute Basophils 0 06/06/17 1645: CBC w Diff NO MAN DIFF REQ, RBC 2.85 L, MCV 90.4, MCH 29.1, MCHC 32.2 L, RDW 19.1 H, MPV 10.8 H, Gran % 96.5 H, Lymphocytes % 3.2 L, Monocytes % 0.3 L, Eosinophils % 0, Basophils % 0, Absolute Granulocytes 4.0, Absolute Lymphocytes 0.1 L, Absolute Monocytes 0 L, Absolute Eosinophils 0, Absolute Basophils 0 06/06/17 1100: Sodium Cancelled, Potassium Cancelled, Chloride Cancelled, Carbon Dioxide Cancelled, Anion Gap Cancelled, BUN Cancelled, Creatinine Cancelled, Glucose Cancelled, Calcium Cancelled, Phosphorus Cancelled, Magnesium Cancelled, Total Bilirubin Cancelled, AST Cancelled, ALT Cancelled, Albumin Cancelled 06/06/17 0505: pH 7.49 H, pCO2 35, pO2 77 L, HCO3 26, ABG O2 Sat (Measured) 95.0 L, P-50 ( Temp Corrected) Y, Carboxyhemoglobin 0.8 L, O2 Concentration % 45%, Temperature 97.6, Respiration Rate 12, O2 Delivery Method ESPRIT, Vent Mode AC, Expiratory Pressure 5, Tidal Volume 500, Phlebotomy Draw Site RIGHT RADIAL 06/06/17 0355: Anion Gap 16, Estimated GFR 43 L, Glucose 174 H, Calcium 8.7, Phosphorus 3.8, Magnesium 2.0, Total Bilirubin 0.8, AST 14, ALT 23, Albumin 3.6, PT 14.5 H, INR 1.39 H, APTT 34, Fibrinogen Activity 159 L, CBC w Diff NO MAN DIFF REQ, RBC 2.37 L, MCV 91.3, MCH 29.6, MCHC 32.4 L, RDW 19.1 H, MPV 11.1 H, Gran % 93.4 H, Lymphocytes % 5.7 L, Monocytes % 0.8 L, Eosinophils % 0.1, Basophils % 0, Absolute Granulocytes 2.6, Absolute Lymphocytes 0.2 L, Absolute Monocytes 0 L, Absolute Eosinophils 0, Absolute Basophils 0 06/05/17 1603: Urine Color Cancelled, Urine Clarity Cancelled, Urine pH Cancelled, Ur Specific [place] Cancelled, Urine Protein Cancelled, Urine Ketones Cancelled, Urine Nitrite Cancelled, Urine Bilirubin Cancelled, Urine Urobilinogen Cancelled, Ur Leukocyte Esterase Cancelled, Ur Microscopic Cancelled, Urine Hemoglobin Cancelled, Urine Glucose Cancelled 06/05/17 1420: CBC w Diff NO MAN DIFF REQ, RBC 2.56 L, MCV 90.5, MCH 29.3, MCHC 32.4 L, RDW 19.2 H, MPV 10.4, Gran % 97.7 H, Lymphocytes % 1.7 L, Monocytes % 0.5 L, Eosinophils % 0.1, Basophils % 0, Absolute Granulocytes 4.9, Absolute Lymphocytes 0.1 L, Absolute Monocytes 0 L, Absolute Eosinophils 0, Absolute Basophils 0 Assessment/Plan Assessment/Plan 1. Acute hypoxic respiratory failure/septic shock secondary to MSSA PNA. Now reintubated, recurrent pneumonia-sputum positive for pseudomonas-on cipro as per ID 2. atrial fibrillation, on oral cardizem, amiodarone, metoprolol, rate acceptable 3. GARCÍA-increased BUN, creatinine stable 4.Pancytopenia-likely secondary to sepsis 6. ?volume overload-will hold lasix today given rising BUN CXR tomorrow. Plan: hold on diuresis today daily weights CXR tomorrow continue Amiodaroine, cardizem and metoprolol Continue telemetry? Yes
[2017-06-07 08:30] VITALS: BP 107/75
--- NOTE | 2017-06-07 08:32 | PN- Resident CRCU ---
Anup Watson 06/07/17 0832: Subjective HPI/CRCU Issues: Atrial Fibrilliation Thrombocytopenia Acute Hypoxic Respiratory Failure 24 Hour Events: No acute events overnight Objective Vital Signs & I&O Last 8 Hrs of Vitals and I&O: Intake & Output 06/07 1600 Intake Total 1020 Output Total 500 Balance 520 Intake, IV 100 Intake, Oral 0 Intake, Tube 520 Feeding Intake, Tube 400 Irrigant Number 1 Bowel Movements Output, Urine 500 Exam General Appearance: intubated Respiratory: decreased breath sounds Cardiovascular: regular rate/rhythm Gastrointestinal: normal bowel sounds, soft Extremities: BL feet wounds, dressing intact without drainage Weaning Parameters NIF: 20 Minute Volume: 12.2 Resp rate: 36 Vt: 340 Heart Rate: 104 Weaning Schedule Start Time: 1910 Minute Volume: 10.6 Resp Rate: 30 Vt: 350 Heart Rate: 105 End Time: 2100 Minute Volume: 12.2 Resp Rate: 34 Vt: 360 Heart Rate: 123 Current Medications: Current Medications Sig/Ric Start time Last Medication Dose Route Stop Time Status Admin Acetaminophen 650 MG Q6P PRN 05/19 0300 AC PO Acetaminophen 1,000 MG Q6P PRN 05/19 0300 AC 06/05 IV 1650 Acetylcysteine 4 ML BID 06/06 2200 AC 06/07 INH 0817 Albumin Human 25 GM Q8H 05/24 0822 AC 06/07 IV 1533 Albuterol Sulfate 3 ML EVERY 4 HRS/AWAKE 05/30 0800 AC 06/07 INH 1634 Amiodarone HCl 200 MG DAILY 06/04 1000 AC 06/07 PO 0911 Artificial Tears 2 GTT 4 TIMES/DAY PRN 05/30 0745 AC 06/06 OPH 1557 Ascorbic Acid 500 MG DAILY 05/29 1000 AC 06/07 PO 0911 Ciprofloxacin 500 MG 0600,1800 06/07 0600 AC 06/07 PO 06/11 0559 1747 Ciprofloxacin 500 MG BID 06/06 1308 DC 06/06 PO 06/10 1307 1555 Diltiazem HCl 60 MG Q6 06/02 1800 AC 06/07 PO 1747 Docusate Sodium 100 MG DAILY AC 05/23 0820 AC 06/05 PO 0604 Glycerin 2 SPRAY Q2P PRN 05/27 0800 AC PO Glycerin/Mineral Oil 1 PEDRITO TID PRN 05/24 1100 AC 06/06 TOP 1557 Insulin Aspart 0 Q4H 05/21 1800 r 06/07 NV 1747 Insulin Detemir 14 UNITS BID 06/04 1000 AC 06/07 SC 0912 Lorazepam 1 MG DAILY 06/08 1000 AC PO Lorazepam 2 MG AT BEDTIME 06/07 2200 AC PO Metoprolol Tartrate 100 MG BID 05/30 1000 AC 06/07 PO 0911 Multivitamins 1 TAB DAILY 05/29 1000 AC 06/07 PO 0912 Pantoprazole Sodium 40 MG BID 06/03 1000 AC 06/07 IV 0911 Polyethylene Glycol 17 GM DAILY 05/23 1000 AC 06/06 PO 1052 Potassium Chloride 40 MEQ DAILY 06/05 1000 AC 06/07 PO 0912 Prednisone 80 MG DAILY 06/02 1000 AC 06/07 PO 0911 CXR Findings: IMPRESSION: Limited assessment. 1. Endotracheal tube tip approximately 4 to 5 cm above the krystal. 2. Enteric tube courses into the abdomen with tip not included. 3. PICC line tip in deep SVC region. 4. No significant change in pulmonary edema, effusions and bibasilar opacities when aligned for differences in technique. Impression/Plan Impression/Problem List Impression: Ms. Christine is a 86 year old woman with past medical history of hypertension, hyperlipidemia, SD s/p PCI with stent, diabetes mellitus, and restless leg syndrome, history of atrial fibrillation with anticoagulation on hold due to severe thrombocytopenia was sent in from extended care facility for hypoxia, leukocytosis and productive cough. Transfered to ICU after patient desaturated became unresponsive. Problem list: 1. Acute hypoxic respiratory failure likely secondary to HCAP 2. Atrial Fibrilliation 3. ITP 4. GARCÍA on CKD 5. Diabetes Mellitus Plan: * SBT today * Cr stable * Respiratory cx grew GNR on Ciprofloxacin * CXR stable * Monitor platelets Problem List: 1. Thrombocytopenia Pain Ratin Tomorrow's Labs & Rationales: CBC ICU Bundle Coags Plan DVT/Prophylaxis: Jordi Trujillo MD 06/07/17 1031: Attending MD Review Statement Attending Sign Off Attending Cosign Statement: I have: examined this patient, reviewed [facility] EMR data, personally reviewd images, discussd w/resident/PA/POULTRY TRIMMER, discussed mgmt plan w/ida, discussed mgmt plan w/CM, discussed mgmt plan w/pt, agreed w/resident/PA/POULTRY TRIMMER, amended to note. Other Findings: I, Jordi Pyle M.D. have examined this patient, reviewed available EMR data, personally reviewed images, discussed with resident/PA/POULTRY TRIMMER, discussed management plan with housestaff and nursing staff, discussed managment plan all of healthcare providers, discussed management plan with patient and/or family, agreed with resident/PA/POULTRY TRIMMER. The past history and parts of the chart have been autopopulated. Impression 86 year old woman resolved septic shock a.fib RVR acute hypoxemic respiratory failure GARCÍA improved anemia/throbocytopenia Plan -monitor dic panels, anemia - hemoglobin stabilized, no need for GI evaluation at this time -cont mechanical ventilation - SBT trials -ID f/u - on ceftazadime changed to ciprofloxacin -cardiology, ID f/u -f/u hematology recommendations, stress steroids can be tapered per heme -endocrinology appreciated -nephrology consultation appreciated -family is unsure of goals of care and unsure if will pursue trach DVT prophylaxis at all times TTS 35 min
--- NOTE | 2017-06-07 10:09 | RADIOLOGY REPORT ---
EXAMINATION: CR PORTABLE CHEST CLINICAL INFORMATION: Pneumonia. Confirmation of lines and tubes. Follow-up. COMPARISON: Several prior chest x-rays, most recent of which is dated 06/06/2017. TECHNIQUE: Portable AP erect view of the chest was obtained. FINDINGS: Evaluation is limited due to patient rotation, low lung volumes and large body habitus. Endotracheal tube tip is unchanged in position with tip at level of aortic arch, probably about 4 to 5 cm above the krystal. Enteric tube courses into the abdomen with tip not included. Right subclavian PICC line tip is poorly visualized but appears to be in the deep SVC. The cardiomediastinal silhouette remains enlarged. Calcification of the aortic arch is seen. Lobe lung volumes are noted with persistent right mid and lower lung and left lower lung opacities, unchanged from prior exam, likely related to pulmonary edema and layering pleural effusions and associated bibasilar atelectasis. No pneumothorax is seen. Bony structures are grossly unremarkable. IMPRESSION: Limited assessment. 1. Endotracheal tube tip approximately 4 to 5 cm above the krystal. 2. Enteric tube courses into the abdomen with tip not included. 3. PICC line tip in deep SVC region. 4. No significant change in pulmonary edema, effusions and bibasilar opacities when aligned for differences in technique.
--- NOTE | 2017-06-07 10:46 | PN- Diabetes ---
Assessment/Plan Assessment: Patient is now reintubated. She is on a respirator and sedated. Her steroid dose is prednisone 80 mg once a day. Sputum culture is positive for pseudomonas. Patient's antibiotics have been adjusted. She is presently on 14 units of Levemir twice a day. Her tube feedingsis at 65 mL/h. She is also on every 4 hour NovoLog coverage. Most recent fingerstick blood sugar is 203. The patient's serum sodium is 142. Her creatinine has gone down to 1.0 with a BUN of 77.. She is receiving free water flushes via feeding tube. The patient is being treated with a Lasix drip for pulmonary edema. This was stopped yesterday afternoon. Unfortunately the patient's chest x-ray is not improving. Also her blood pressure is becoming low. Plan: Suggest continue Levemir 12 units twice a day. We need to increase the patient' s sliding scale NovoLog every 4 hours. Sliding scale NovoLog every 4 hours should be less than 120 give no insulin, 120-150 give 6 units NovoLog, 151-200 give 8 units NovoLog, 201-250 give 10 units NovoLog, 251-300 give 12 units NovoLog, 301-350 give 14 units NovoLog, 351-400 give 16 units NovoLog. Subjective Subjective: Intubated and sedated Objective Last 24 Hrs of Vital Signs/I&O Vital Signs Date Time Temp Pulse Resp B/P B/P Pulse O2 O2 Flow FiO2 Mean Ox Delivery Rate 06/07 0830 98.6 112 18 107/75 95 Ventilator 45% 02/03 0822 45 02/03 0800 95 Ventilator 40% 02/03 0633 45 02/03 0604 126 17 129/87 02/03 0400 99 Ventilator 45% 02/03 0343 45 02/03 0058 45 02/03 0000 120 16 106/60 02/03 0000 98 Ventilator 45% 02/03 0000 96.0 120 16 106/60 98 Ventilator 45% 02/02 2232 45 02/02 2215 128 28 112/62 022021 92 Ventilator 40% 02/02 2021 98.3 124 28 122/82 92 Ventilator 40% 02/02 1910 40 02/02 1817 133 104/75 02/02 1800 95 Ventilator 40% 02/02 1653 40 02/02 1600 99.0 118 18 120/78 92 Ventilator 40% 02/02 1600 92 Ventilator 40% 06/06 1452 141 128/85 06/06 1427 40 06/06 1230 126 120/80 Intake & Output 06/07 1600 06/07 0800 06/07 0000 Intake Total 900 823 Output Total 525 755 Balance 375 68 Intake, Blood 100 Product Intake, IV 142 Intake, Tube 480 401 Feeding Intake, Tube 320 280 Irrigant Number 0 1 Bowel Movements Output, Urine 525 755 Patient 276 lb 277 lb Weight Weight Bed scale Bed scale Measurement Method
[2017-06-07 16:00] VITALS: BP 120/70
[2017-06-07 22:00] VITALS: BP 119/75
[2017-06-08 05:33] LABS: ABSOLUTE BASOPHIL COUNT 0 /CUMM (0.0-0.2); ABSOLUTE EOSINOPHIL COUNT 0 /CUMM (0.0-0.7); ABSOLUTE GRANULOCYTE CT 3.5 /CUMM (1.4-6.5); ABSOLUTE LYMPH COUNT 0.2 /CUMM (1.2-3.4); ABSOLUTE MONOCYTE COUNT 0 /CUMM (0.10-0.60); BASOPHIL % 0.1 % (0.0-2.0); EOSINOPHIL % 0 % (0-5); GRANULOCYTE % 94.9 % (42.2-75.2); HEMATOCRIT 24.3 % (37-47); MEAN CORPUSCULAR HGB 29.5 PG (27.0-31.0); MEAN CORPUSCULAR HGB CONC 32.4 G/DL (33.0-37.0); MEAN CORPUSCULAR VOLUME 91.1 FL (81.0-99.0); MEAN PLATELET VOLUME 9.7 FL (7.4-10.4); RBC DISTRIBUTION WIDTH 18.8 % (11.5-14.5); RED BLOOD CELL CT 2.66 /CUMM (4.20-5.40); WHITE BLOOD CELL COUNT 3.7 /CUMM (4.8-10.8)
[2017-06-08 05:47] LABS: PT 13.6 SEC (9.4-12.5)
[2017-06-08 06:02] LABS: PLATELET COUNT 34 /CUMM (130-400)
--- NOTE | 2017-06-08 06:51 | RADIOLOGY REPORT ---
EXAMINATION: XR PORTABLE CHEST CLINICAL INFORMATION: Status post intubation COMPARISON: Chest x-ray June 07, 2017 TECHNIQUE: Portable frontal view of the chest was obtained. 6:02 AM FINDINGS: Exam limited by body habitus and positioning. Patient is rotated to left. Endotracheal tube in good position approximately 4 cm above the krystal. The nasogastric catheter passes below diaphragm but the tip is not visualized. PICC line catheter at the caval atrial junction. There is persistent bilateral airspace disease with dense opacification of both lung bases similar prior chest x-ray. IMPRESSION: 1. Endotracheal tube catheter 4 cm above krystal good position. 2. Nasogastric tube passing into the stomach. 3. PICC line catheter tip at caval atrial junction. 4. Persistent bilateral airspace disease.
--- NOTE | 2017-06-08 06:58 | PN- Cardiology ---
Subjective Subjective: Condition unchanged, patient awake, intubated Objective Vital Signs and I&Os Vital Signs Date Time Temp Pulse Resp B/P B/P Pulse O2 O2 Flow FiO2 Mean Ox Delivery Rate / 0602 107 111/74 02/ 0400 96 Ventilator 40% 02/ 0359 40 02/ 0112 40 02/ 0000 95 Ventilator 40% 02/ 2352 111 18/69 02/03 2224 40 02/ 2200 98.7 111 24 119/75 97 Ventilator 40% / 2124 128 107/79 02/ 2000 95 Ventilator 40% 02/ 1936 40 02/ 1634 40 02/ 1600 96 Ventilator 40% 02/ 1600 98.2 132 20 120/70 96 Ventilator 40% / 1255 40 02/ 1200 96 Ventilator 40% / 0830 98.6 112 18 107/75 95 Ventilator 45% / 0822 45 / 0800 95 Ventilator 40% Intake & Output 06/08 0800 / 0000 / 1600 / 0800 / 0000 06/06 1600 Intake Total 1020 1020 614 465 8266 Output Total 650 500 525 755 550 Balance 370 520 145 51 3153 Intake, Blood 100 350 Product Intake, IV 100 100 142 225 Intake, Oral 0 Intake, Other 480 Intake, Tube 520 520 480 401 509 Feeding Intake, Tube 400 400 320 280 Irrigant Number 1 1 0 1 1 Bowel Movements Output, 0 Gastric Drainage Output, Urine 650 500 525 755 550 Patient 276 lb 277 lb Weight Weight Bed scale Bed scale Measurement Method Physical Exam: No acute distress on ventilator HEENT-PERRLA No acute distress Neck-unable to assess JVP, no bruits Lungs-clear anteriorly Heart-S1S2 irregular, no murmur, rate 110 bpm Abdomen-soft, obese, not tender, BS+, no organomegaly Extr-dermatitis, trace edema, trace legs edema diminished distal pulses Neuro-non focal Current Medications: Current Medications Sig/Ric Start time Last Medication Dose Route Stop Time Status Admin Acetaminophen 650 MG Q6P PRN 05/19 299 AC PO Acetaminophen 1,000 MG Q6P PRN 05/19 299 AC 06/05 IV 1650 Acetylcysteine 4 ML BID 06/06 2199 AC 06/07 INH 2030 Albumin Human 25 GM Q8H 05/24 821 AC 06/08 IV 0014 Albuterol Sulfate 3 ML EVERY 4 HRS/AWAKE 05/30 0800 AC 06/07 INH 2029 Amiodarone HCl 200 MG DAILY 06/04 1000 AC 06/07 PO 0911 Artificial Tears 2 GTT 4 TIMES/DAY PRN 05/30 0745 AC 06/06 OPH 1557 Ascorbic Acid 500 MG DAILY 05/29 1000 AC 06/07 PO 0911 Ciprofloxacin 500 MG 0600,1800 06/07 0600 AC 06/08 PO 06/11 0559 0601 Diltiazem HCl 60 MG Q6 06/02 1800 AC 06/08 PO 0602 Docusate Sodium 100 MG DAILY AC 05/23 0820 AC 06/08 PO 0602 Glycerin 2 SPRAY Q2P PRN 05/27 0800 AC PO Glycerin/Mineral Oil 1 PEDRITO TID PRN 05/24 1100 AC 06/06 TOP 1557 Insulin Aspart 0 Q4H 05/21 1800 AC 06/08 SC 0601 Insulin Detemir 14 UNITS BID 06/04 1000 AC 06/07 SC 2123 Lorazepam 1 MG DAILY 06/08 1000 AC PO Lorazepam 2 MG AT BEDTIME 06/07 2200 AC 06/07 PO 2119 Metoprolol Tartrate 100 MG BID 05/30 1000 AC 06/07 PO 2124 Multivitamins 1 TAB DAILY 05/29 1000 AC 06/07 PO 0912 Pantoprazole Sodium 40 MG BID 06/03 1000 AC 06/07 IV 2125 Polyethylene Glycol 17 GM DAILY 05/23 1000 AC 06/06 PO 1052 Potassium Chloride 40 MEQ DAILY 06/05 1000 AC 06/07 PO 0912 Prednisone 80 MG DAILY 06/02 1000 AC 06/07 PO 0911 Results Last 48 Hrs of Labs/Mics: Laboratory Tests 06/08/17 0450: Anion Gap 17 H, Estimated GFR 43 L, Glucose 156 H, Calcium 9.3, Phosphorus 3.5, Magnesium 2.2, Total Bilirubin 0.8, AST 14, ALT 23, Albumin 3.8, PT 13.6 H , INR 1.30 H, Fibrinogen Activity 159 L, CBC w Diff NO MAN DIFF REQ, RBC 2.66 L, MCV 91.1, MCH 29.5, MCHC 32.4 L, RDW 18.8 H, MPV 9.7, Gran % 94.9 H, Lymphocytes % 4.2 L, Monocytes % 0.8 L, Eosinophils % 0, Basophils % 0.1, Absolute Granulocytes 3.5, Absolute Lymphocytes 0.2 L, Absolute Monocytes 0 L, Absolute Eosinophils 0, Absolute Basophils 0 06/07/17 0440: Anion Gap 18 H, Estimated GFR 43 L, Glucose 256 H, Calcium 9.1, Phosphorus 4.0, Magnesium 2.2, Total Bilirubin 0.8, AST 15, ALT 29, Albumin 3.9, PT 13.9 H , INR 1.33 H, APTT 34, Fibrinogen Activity 188 L, CBC w Diff NO MAN DIFF REQ, RBC 2.77 L, MCV 90.6, MCH 29.5, MCHC 32.5 L, RDW 18.9 H, MPV 10.4, Gran % 94.3 H, Lymphocytes % 4.5 L, Monocytes % 1.2 L, Eosinophils % 0, Basophils % 0, Absolute Granulocytes 3.3, Absolute Lymphocytes 0.2 L, Absolute Monocytes 0 L, Absolute Eosinophils 0, Absolute Basophils 0 06/06/17 1645: CBC w Diff NO MAN DIFF REQ, RBC 2.85 L, MCV 90.4, MCH 29.1, MCHC 32.2 L, RDW 19.1 H, MPV 10.8 H, Gran % 96.5 H, Lymphocytes % 3.2 L, Monocytes % 0.3 L, Eosinophils % 0, Basophils % 0, Absolute Granulocytes 4.0, Absolute Lymphocytes 0.1 L, Absolute Monocytes 0 L, Absolute Eosinophils 0, Absolute Basophils 0 06/06/17 1100: Sodium Cancelled, Potassium Cancelled, Chloride Cancelled, Carbon Dioxide Cancelled, Anion Gap Cancelled, BUN Cancelled, Creatinine Cancelled, Glucose Cancelled, Calcium Cancelled, Phosphorus Cancelled, Magnesium Cancelled, Total Bilirubin Cancelled, AST Cancelled, ALT Cancelled, Albumin Cancelled Recent Imaging Studies: CXR today showed unchanged bilateral opacifications Assessment/Plan Assessment/Plan 1. Acute hypoxic respiratory failure secondary to pneumnia. Now reintubated, recurrent pneumonia-sputum positive for pseudomonas-on cipro as per ID 2. atrial fibrillation, on oral cardizem, amiodarone, metoprolol, rate acceptable 3. GARCÍA-BUN keeps increasing, creatinine remains stable 4.Pancytopenia-likely secondary to sepsis Plan: continue off diuretics daily weights continue Amiodaroine, cardizem and metoprolol weaning as per pulmonary May need tracheotomy Continue telemetry? Yes
[2017-06-08 08:00] VITALS: BP 113/73
--- NOTE | 2017-06-08 08:26 | PN- Infect Dx ---
Subjective Subjective: Afebrile on steroids. She offers no complaints. Objective Last 24 Hrs of Vital Signs/I&O Vital Signs Date Time Temp Pulse Resp B/P B/P Pulse O2 O2 Flow FiO2 Mean Ox Delivery Rate 06/08 0602 107 111/74 02/ 0400 96 Ventilator 40% 02/ 0359 40 02/ 0112 40 02/ 0000 95 Ventilator 40% 02/ 2352 111 18/69 02/03 2224 40 02/ 2200 98.7 111 24 119/75 97 Ventilator 40% 02/ 2124 128 107/79 02/ 2000 95 Ventilator 40% 02/ 1936 40 02/ 1634 40 02/ 1600 96 Ventilator 40% 02/ 1600 98.2 132 20 120/70 96 Ventilator 40% 02/ 1255 40 02/ 1200 96 Ventilator 40% 02/ 0830 98.6 112 18 107/75 95 Ventilator 45% / 0822 45 Intake & Output / 1600 / 0800 02/ 0000 Intake Total 880 1020 Output Total 690 650 Balance 190 370 Intake, IV 100 100 Intake, Tube 520 520 Feeding Intake, Tube 260 400 Irrigant Number 1 Bowel Movements Output, Urine 690 650 Patient 285 lb Weight Physical Exam Other Physical Findings: She appears comfortable on the ventilator in no acute distress Lungs bilateral rhonchi Heart regular rhythm with no murmur Abdomen is soft, nontender with positive bowel sounds Extremities chronic venous stasis changes both lower extremities; PICC in the right upper extremity with no inflammation at the site Faust catheter remains in place Results Last 24 Hours of Lab Results: Laboratory Tests 06/08 0450 Chemistry Sodium (137 - 145 mmol/L) 146 H Potassium (3.5 - 5.1 mmol/L) 4.5 Chloride (98 - 107 mmol/L) 101 Carbon Dioxide (22 - 30 mmol/L) 28 Anion Gap (5 - 16) 17 H BUN (7 - 17 mg/dL) 104 *H Creatinine (0.5 - 1.0 mg/dL) 1.2 H Estimated GFR (>60 ml/min) 43 L Glucose (65 - 99 mg/dL) 156 H Calcium (8.4 - 10.2 mg/dL) 9.3 Phosphorus (2.5 - 4.5 mg/dL) 3.5 Magnesium (1.6 - 2.3 mg/dL) 2.2 Total Bilirubin (0.2 - 1.3 mg/dL) 0.8 AST (14 - 36 U/L) 14 ALT (9 - 52 U/L) 23 Albumin (3.5 - 5.0 g/dL) 3.8 Coagulation PT (9.4 - 12.5 SEC) 13.6 H INR (0.90 - 1.19) 1.30 H Fibrinogen Activity (200 - 393 MG/DL) 159 L Hematology CBC w Diff NO MAN DIFF REQ WBC (4.8 - 10.8 /CUMM) 3.7 L RBC (4.20 - 5.40 /CUMM) 2.66 L Hgb (12.0 - 16.0 G/DL) 7.9 L Hct (37 - 47 %) 24.3 L MCV (81.0 - 99.0 FL) 91.1 MCH (27.0 - 31.0 PG) 29.5 MCHC (33.0 - 37.0 G/DL) 32.4 L RDW (11.5 - 14.5 %) 18.8 H Plt Count (130 - 400 /CUMM) 34 L MPV (7.4 - 10.4 FL) 9.7 Gran % (42.2 - 75.2 %) 94.9 H Lymphocytes % (20.5 - 51.1 %) 4.2 L Monocytes % (1.7 - 9.3 %) 0.8 L Eosinophils % (0 - 5 %) 0 Basophils % (0.0 - 2.0 %) 0.1 Absolute Granulocytes (1.4 - 6.5 /CUMM) 3.5 Absolute Lymphocytes (1.2 - 3.4 /CUMM) 0.2 L Absolute Monocytes (0.10 - 0.60 /CUMM) 0 L Absolute Eosinophils (0.0 - 0.7 /CUMM) 0 Absolute Basophils (0.0 - 0.2 /CUMM) 0 Last 24 Hours of Silvano Results: Sputum culture June 06 positive for Pseudomonas sensitive to all antibiotics tested Recent Imaging Studies: Chest x-ray June 08, personally reviewed, reveals persistent bilateral airspace disease Assessment/Plan Impression: Stable, with temperatures remaining normal, now on Ciprofloxacin, Day 7 of treatment for Pseudomonas, isolated from her recent sputum cultures, possibly secondary to pneumonia. 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 Suggestion: 1. Discontinue all nonessential medications 2. Further management of her fluid status per Cardiology 3. Remove Faust catheter if okay with Cardiology 4. Further management of her steroids per Hematology 5. Continue Ciprofloxacin
--- NOTE | 2017-06-08 08:58 | PN- Resident CRCU ---
Adelina Lepe 06/08/17 0857: Subjective HPI/CRCU Issues: Atrial Fibrilliation Thrombocytopenia Acute Hypoxic Respiratory Failure 24 Hour Events: Patient is seen and examined this morning, responding to verbal commands(opening her eyes, denies any discomfort), vitals are stable overnight, blood pressure 119/70, pulse 104, respiratory 20. Ins :2257, Os :1720- in the last 24 hours No acute events overnight Objective Vital Signs & I&O Last 8 Hrs of Vitals and I&O: Vital Signs Date Time Temp Pulse Resp B/P B/P Pulse O2 O2 Flow FiO2 Mean Ox Delivery Rate / 1200 95 Ventilator 40% / 0906 40 / 0800 96 Ventilator 40% / 0800 98.1 131 26 113/73 96 Ventilator 40% / 0602 107 111/74 02/04 0400 96 Ventilator 40% / 0359 40 02/ 0112 40 02/04 0000 95 Ventilator 40% 02/ 2352 111 18/69 02/03 2224 40 02/03 2200 98.7 111 24 119/75 97 Ventilator 40% 02/03 2124 128 107/79 02/03 2000 95 Ventilator 40% 02/03 1936 40 02/03 1634 40 02/03 1600 96 Ventilator 40% 02/03 1600 98.2 132 20 120/70 96 Ventilator 40% 02/03 1255 40 Intake & Output 02/04 1600 02/04 0800 02/04 0000 Intake Total 880 1020 Output Total 690 650 Balance 190 370 Intake, IV 100 100 Intake, Tube 520 520 Feeding Intake, Tube 260 400 Irrigant Number 1 Bowel Movements Output, Urine 690 650 Patient 285 lb Weight Exam General Appearance: well developed/nourished, no apparent distress Head: atraumatic, normal appearance Ears, Nose, Throat: normal pharynx, normal ENT inspection Neck: normal inspection Respiratory: normal breath sounds Cardiovascular: regular rate/rhythm, edema Gastrointestinal: normal bowel sounds, soft, non-tender Weaning Parameters NIF: 23 Minute Volume: 9.08 Resp rate: 16 Vt: 565 Heart Rate: 120 Weaning Schedule Start Time: 1944 Minute Volume: 11.2 Resp Rate: 30 Vt: 400 Heart Rate: 109 End Time: 2029 Minute Volume: 12 Resp Rate: 32 Vt: 378 Heart Rate: 123 Current Medications: Current Medications Sig/Ric Start time Last Medication Dose Route Stop Time Status Admin Acetaminophen 650 MG Q6P PRN 05/19 0300 AC PO Acetaminophen 1,000 MG Q6P PRN 05/19 0300 AC 06/05 IV 1650 Acetylcysteine 4 ML BID 06/06 2200 AC 06/08 INH 0836 Albumin Human 25 GM Q8H 05/24 0822 AC 06/08 IV 1550 Albuterol Sulfate 3 ML EVERY 4 HRS/AWAKE 05/30 0800 AC 06/08 INH 1652 Amiodarone HCl 200 MG DAILY 06/04 1000 AC 06/08 PO 0914 Artificial Tears 2 GTT 4 TIMES/DAY PRN 05/30 0745 AC 06/06 OPH 1557 Ascorbic Acid 500 MG DAILY 05/29 1000 AC 06/08 PO 0914 Ciprofloxacin 500 MG 0600,1800 06/07 0600 AC 06/08 PO 06/11 0559 1743 Diltiazem HCl 60 MG Q6 06/02 1800 AC 06/08 PO 1743 Docusate Sodium 100 MG DAILY AC 05/23 0820 AC 06/08 PO 0602 Glycerin 2 SPRAY Q2P PRN 05/27 0800 AC PO Glycerin/Mineral Oil 1 PEDRITO TID PRN 05/24 1100 AC 06/06 TOP 1557 Insulin Aspart 0 Q4H 05/21 1800 AC 06/08 SC 1411 Insulin Detemir 14 UNITS BID 06/04 1000 AC 06/08 SC 0915 Lorazepam 1 MG DAILY 06/08 1000 AC 06/08 PO 0915 Lorazepam 2 MG AT BEDTIME 06/07 2200 AC 06/07 PO 2119 Metoprolol Tartrate 100 MG BID 05/30 1000 AC 06/08 PO 0914 Multivitamins 1 TAB DAILY 05/29 1000 AC 06/08 PO 0914 Pantoprazole Sodium 40 MG BID 06/03 1000 AC 06/08 IV 0914 Polyethylene Glycol 17 GM DAILY 05/23 1000 AC 06/06 PO 1052 Potassium Chloride 40 MEQ DAILY 06/05 1000 AC 06/08 PO 0914 Prednisone 80 MG DAILY 06/02 1000 AC 06/08 PO 0914 Impression/Plan Impression/Problem List Impression: Impression: 86 year old woman with past medical history of hypertension, hyperlipidemia, ME s/p PCI with stent, diabetes mellitus, and restless leg syndrome, history of atrial fibrillation with anticoagulation on hold due to severe thrombocytopenia was sent in from extended care facility for hypoxia, leukocytosis and productive cough. She was admitted on telemetry floor and transfered to ICU yesterday after patient desaturated became unresponsive. Assessment and Plan: Acute hypoxic respiratory failure likely secondary to HCAP: * Her white count has normalized and she's been afebrile. Her sputum culture is growing MSSA. * Continue Oxacillin 2g q4 * Remains intubated with FiO2 of 40 %, will decrease the tidal volume. * ID recs appreciated. * As per ID recommendations we'll consider removing right IJ triple-lumen catheter tomorrow. If peripheral access is difficult we'll consider placing a PICC line. Atrial Fibrilliation with Hypotension: * Blood pressure much more stable now. * Continue with metoprolol at 50mg BID. * Digoxin has been discontinued. * Continue with oral Amiodarone 400mg TID. * AC on hold due to thrombocytopenia * Echo - Normal left ventricular ejection fraction visually estimated at > 60% .Currently off fluids and Levophed , her pressure has been stable Immune Thrombocytopenia: * Platelet count dropped to 34 today * Patient is currently on high dose prednisone 80 mg daily, ofF hydrocortisone now. * Continue to monitor platelet count * Daily CBC * s/p 1 unit transfusion of platelets 05/22. 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 * Her fibrinogen has been decreasing each day. Will follow for another day. GARCÍA on CKD: * Cr improving. Currently 1.2 * Was likely contrast induced nephropathy * Will continue IVF with one more bag. * Will give her one dose of IV lasix 20mg for fluid overload. * Nephro recs appreciated. * Strict I&Os. Diabetes Mellitus: * Currently receiving tube feeds. * Levemir 14 mg BID * Insulin SS medium dose. Lower Extremity Skin Changes: * Was evaluated by vascular surgery. Recommend no surgical intervention at this time. History of restless leg syndrome: * Sinemet was recently discontinued * Lyrica on hold currently. * Lubriderm to affected skin. DVT Prophylaxis: ALPS Code:FC Problem List: 1. Pancytopenia Pain Ratin Tomorrow's Labs & Rationales: CBC AND ICU BUNDLE , critically ill PT Plan DVT/Prophylaxis: Jordi Trujillo MD 06/08/17 1007: Attending MD Review Statement Attending Sign Off Attending Cosign Statement: I have: examined this patient, reviewed [facility] EMR data, personally reviewd images, discussd w/resident/PA/HARBOUR MASTER, discussed mgmt plan w/ida, discussed mgmt plan w/CM, discussed mgmt plan w/pt, agreed w/resident/PA/HARBOUR MASTER, amended to note. Other Findings: Jordi Lopez M.D. have examined this patient, reviewed available EMR data, personally reviewed images, discussed with resident/PA/HARBOUR MASTER, discussed management plan with housestaff and nursing staff, discussed managment plan all of healthcare providers, discussed management plan with patient and/or family, agreed with resident/PA/HARBOUR MASTER. The past history and parts of the chart have been autopopulated. Impression 86 year old woman resolved septic shock a.fib RVR acute hypoxemic respiratory failure GARCÍA improved anemia/throbocytopenia Plan -reduce TV to 480 -monitor dic panels, anemia - hemoglobin stabilized, no need for GI evaluation at this time -cont mechanical ventilation - SBT trials -ID f/u - on ceftazadime changed to ciprofloxacin -cardiology, ID f/u -f/u hematology recommendations, stress steroids can be tapered per heme -endocrinology appreciated -nephrology consultation appreciated -family is unsure of goals of care and unsure if will pursue trach -free water flushes for hypernatremia DVT prophylaxis at all times TTS 35 min
--- NOTE | 2017-06-08 09:42 | PN- Diabetes ---
Assessment/Plan Assessment: Patient is now reintubated. She is on a respirator and sedated. Her steroid dose is prednisone 80 mg once a day. Sputum culture is positive for pseudomonas. Patient's antibiotics have been adjusted. She is presently on 14 units of Levemir twice a day. Her tube feedingsis at 65 mL/h. She is also on every 4 hour NovoLog coverage. Most recent sugar in the lab this morning is 156.. The patient's serum sodium is 146. Her creatinine has gone down to 1.2 with a BUN of 104.. She is receiving free water flushes via feeding tube. The patient is being treated with a Lasix drip for pulmonary edema. This was stopped yesterday afternoon. Unfortunately the patient's chest x-ray is not improving. Also her blood pressure is becoming low. Plan: Suggest continue the present insulin. The patient's serum sodium is started to go up again. Adjust free water flushes with the tube feedings to bring the serum sodium down. Subjective Subjective: Intubated and sedated Objective Last 24 Hrs of Vital Signs/I&O Vital Signs Date Time Temp Pulse Resp B/P B/P Pulse O2 O2 Flow FiO2 Mean Ox Delivery Rate 06/08 0906 40 02/ 0800 96 Ventilator 40% / 0800 98.1 131 26 113/73 96 Ventilator 40% 02/04 0602 107 111/74 02/04 0400 96 Ventilator 40% 02/04 0359 40 02/04 0112 40 02/04 0000 95 Ventilator 40% 02/03 2352 111 18/69 02/03 2224 40 02/03 2200 98.7 111 24 119/75 97 Ventilator 40% 02/03 2124 128 107/79 02/03 2000 95 Ventilator 40% 02/03 1936 40 02/03 1634 40 02/03 1600 96 Ventilator 40% 02/03 1600 98.2 132 20 120/70 96 Ventilator 40% 02/03 1255 40 02/03 1200 96 Ventilator 40% Intake & Output 02/04 1600 02/04 0800 02/04 0000 Intake Total 880 1020 Output Total 690 650 Balance 190 370 Intake, IV 100 100 Intake, Tube 520 520 Feeding Intake, Tube 260 400 Irrigant Number 1 Bowel Movements Output, Urine 690 650 Patient 285 lb Weight Vital Signs Date Time Temp Pulse Resp B/P B/P Pulse O2 O2 Flow FiO2 Mean Ox Delivery Rate 02/ 0906 40 02/04 0800 96 Ventilator 40% / 0800 98.1 131 26 113/73 96 Ventilator 40% / 0602 107 111/74 02/04 0400 96 Ventilator 40% 02/04 0359 40 02/04 0112 40 02/04 0000 95 Ventilator 40% 02/03 2352 111 18/69 02/03 2224 40 02/03 2200 98.7 111 24 119/75 97 Ventilator 40% 02/03 2124 128 107/79 02/ 2000 95 Ventilator 40% 02/03 1936 40 02/03 1634 40 02/03 1600 96 Ventilator 40% 02/03 1600 98.2 132 20 120/70 96 Ventilator 40% 02/03 1255 40 02/ 1200 96 Ventilator 40% Intake & Output 06/08 1600 02/ 0800 02/ 0000 Intake Total 880 1020 Output Total 690 650 Balance 190 370 Intake, IV 100 100 Intake, Tube 520 520 Feeding Intake, Tube 260 400 Irrigant Number 1 Bowel Movements Output, Urine 690 650 Patient 285 lb Weight Physical Exam General Appearance: awake, intubated Head: normal appearance Neck: normal inspection Cardiovascular: tachycardia, irregularly irregular Abdomen: normal bowel sounds, soft Extremities: normal inspection Current Medications: Current Medications Sig/Ric Start time Last Medication Dose Route Stop Time Status Admin Acetaminophen 650 MG Q6P PRN 05/19 0300 AC PO Acetaminophen 1,000 MG Q6P PRN 05/19 0300 AC 06/05 IV 1650 Acetylcysteine 4 ML BID 06/06 2200 AC 06/08 INH 0836 Albumin Human 25 GM Q8H 05/24 0822 AC 06/08 IV 0801 Albuterol Sulfate 3 ML EVERY 4 HRS/AWAKE 05/30 08 AC 06/08 INH 0836 Amiodarone HCl 200 MG DAILY 06/04 1000 AC 06/08 PO 0914 Artificial Tears 2 GTT 4 TIMES/DAY PRN 05/30 0745 AC 06/06 OPH 1557 Ascorbic Acid 500 MG DAILY 05/29 1000 AC 06/08 PO 0914 Ciprofloxacin 500 MG 0600,1800 06/07 0600 AC 06/08 PO 06/11 0559 0601 Diltiazem HCl 60 MG Q6 06/02 1800 AC 06/08 PO 0602 Docusate Sodium 100 MG DAILY AC 05/23 0820 AC 06/08 PO 0602 Glycerin 2 SPRAY Q2P PRN 05/27 0800 AC PO Glycerin/Mineral Oil 1 PEDRITO TID PRN 05/24 1100 AC 06/06 TOP 1557 Insulin Aspart 0 Q4H 05/21 1800 AC 06/08 SC 0601 Insulin Detemir 14 UNITS BID 06/04 1000 AC 06/08 SC 0915 Lorazepam 1 MG DAILY 06/08 1000 AC 06/08 PO 0915 Lorazepam 2 MG AT BEDTIME 06/07 2200 AC 06/07 PO 2119 Metoprolol Tartrate 100 MG BID 05/30 1000 AC 06/08 PO 0914 Multivitamins 1 TAB DAILY 05/29 1000 AC 06/08 PO 0914 Pantoprazole Sodium 40 MG BID 06/03 1000 AC 06/08 IV 0914 Polyethylene Glycol 17 GM DAILY 05/23 1000 AC 06/06 PO 1052 Potassium Chloride 40 MEQ DAILY 06/05 1000 AC 06/08 PO 0914 Prednisone 80 MG DAILY 06/02 1000 AC 06/08 PO 0914 Findings Pertinent Lab/Silvano Results: Laboratory Tests 06/08 0450 Chemistry Sodium (137 - 145 mmol/L) 146 H Potassium (3.5 - 5.1 mmol/L) 4.5 Chloride (98 - 107 mmol/L) 101 Carbon Dioxide (22 - 30 mmol/L) 28 Anion Gap (5 - 16) 17 H BUN (7 - 17 mg/dL) 104 *H Creatinine (0.5 - 1.0 mg/dL) 1.2 H Estimated GFR (>60 ml/min) 43 L Glucose (65 - 99 mg/dL) 156 H Calcium (8.4 - 10.2 mg/dL) 9.3 Phosphorus (2.5 - 4.5 mg/dL) 3.5 Magnesium (1.6 - 2.3 mg/dL) 2.2 Total Bilirubin (0.2 - 1.3 mg/dL) 0.8 AST (14 - 36 U/L) 14 ALT (9 - 52 U/L) 23 Albumin (3.5 - 5.0 g/dL) 3.8 Coagulation PT (9.4 - 12.5 SEC) 13.6 H INR (0.90 - 1.19) 1.30 H Fibrinogen Activity (200 - 393 MG/DL) 159 L Hematology CBC w Diff NO MAN DIFF REQ WBC (4.8 - 10.8 /CUMM) 3.7 L RBC (4.20 - 5.40 /CUMM) 2.66 L Hgb (12.0 - 16.0 G/DL) 7.9 L Hct (37 - 47 %) 24.3 L MCV (81.0 - 99.0 FL) 91.1 MCH (27.0 - 31.0 PG) 29.5 MCHC (33.0 - 37.0 G/DL) 32.4 L RDW (11.5 - 14.5 %) 18.8 H Plt Count (130 - 400 /CUMM) 34 L MPV (7.4 - 10.4 FL) 9.7 Gran % (42.2 - 75.2 %) 94.9 H Lymphocytes % (20.5 - 51.1 %) 4.2 L Monocytes % (1.7 - 9.3 %) 0.8 L Eosinophils % (0 - 5 %) 0 Basophils % (0.0 - 2.0 %) 0.1 Absolute Granulocytes (1.4 - 6.5 /CUMM) 3.5 Absolute Lymphocytes (1.2 - 3.4 /CUMM) 0.2 L Absolute Monocytes (0.10 - 0.60 /CUMM) 0 L Absolute Eosinophils (0.0 - 0.7 /CUMM) 0 Absolute Basophils (0.0 - 0.2 /CUMM) 0
[2017-06-08 16:00] VITALS: BP 122/67
[2017-06-09] VITALS: BP 121/76
[2017-06-09 06:34] LABS: ABSOLUTE BASOPHIL COUNT 0 /CUMM (0.0-0.2); ABSOLUTE EOSINOPHIL COUNT 0 /CUMM (0.0-0.7); ABSOLUTE LYMPH COUNT 0.2 /CUMM (1.2-3.4); ABSOLUTE MONOCYTE COUNT 0 /CUMM (0.10-0.60); BASOPHIL % 0.2 % (0.0-2.0); HEMATOCRIT 21.8 % (37-47)
--- NOTE | 2017-06-09 06:48 | RADIOLOGY REPORT ---
EXAMINATION: XR PORTABLE CHEST CLINICAL INFORMATION: Intubation. COMPARISON: Chest x-ray June 08, 2017 TECHNIQUE: Portable frontal view of the chest was obtained. 5:58 AM FINDINGS: Endotracheal tube catheter 6 cm above of krystal. Nasogastric tube passes into the stomach. PICC line catheter tip in superior vena cava There is pulmonary vascular congestion. Bilateral airspace disease with haziness in the lung cotton bilaterally. There is also dense consolidation at the left lung base. Blunting of costophrenic angles due to bilateral pleural effusions. Compared to prior chest x-ray there is no significant change in the airspace disease with a density at lung bases. IMPRESSION: Endotracheal tube catheter 6 cm above krystal Nasogastric tube in stomach. PICC line catheter tip in superior vena cava Persistent pulmonary vascular congestion, pulmonary edema and bilateral pleural effusions
[2017-06-09 06:54] LABS: ABSOLUTE GRANULOCYTE CT 2.6 /CUMM (1.4-6.5); EOSINOPHIL % 0.1 % (0-5); GRANULOCYTE % 91.7 % (42.2-75.2); MEAN CORPUSCULAR HGB 29.3 PG (27.0-31.0); MEAN CORPUSCULAR HGB CONC 32.3 G/DL (33.0-37.0); MEAN CORPUSCULAR VOLUME 90.8 FL (81.0-99.0); MEAN PLATELET VOLUME 10.1 FL (7.4-10.4); PLATELET COUNT 31 /CUMM (130-400); RBC DISTRIBUTION WIDTH 18.3 % (11.5-14.5); WHITE BLOOD CELL COUNT 2.8 /CUMM (4.8-10.8)
--- NOTE | 2017-06-09 07:31 | PN- Cardiology ---
Subjective Subjective: Patient remains intubated Objective Vital Signs and I&Os Vital Signs Date Time Temp Pulse Resp B/P B/P Pulse O2 O2 Flow FiO2 Mean Ox Delivery Rate 02/ 0634 40 02/ 0534 120 119/77 02/05 0403 40 02/ 0400 96 Ventilator 40% 02/ 0226 40 02/ 0021 120 121/76 02/05 0000 97 Ventilator 40% 02/ 0000 98.2 108 26 121/76 97 Ventilator 40% 02/ 2223 40 02/ 2210 110 115/67 02/04 2057 40 02/ 2000 98 Ventilator 40% 02/ 1655 40 02/ 1600 96 Ventilator 40% 02/04 1600 99.0 125 17 122/67 97 Ventilator 40% 02/ 1412 40 02/04 1200 95 Ventilator 40% / 0906 40 02/ 0800 96 Ventilator 40% / 0800 98.1 131 26 113/73 96 Ventilator 40% Intake & Output 06/09 08 02/ 0000 02/04 1600 02/04 0800 02/04 0000 /03 1600 Intake Total 920 5238 492 2554 1020 Output Total 460 550 690 650 500 Balance 460 500 190 370 520 Intake, IV 100 130 100 100 100 Intake, Oral 0 0 Intake, Tube 520 520 520 520 520 Feeding Intake, Tube 300 400 260 400 400 Irrigant Number 1 1 1 Bowel Movements Output, Urine 460 550 690 650 500 Patient 285 lb Weight Physical Exam: No acute distress on ventilator HEENT-PERRLA No acute distress Neck-unable to assess JVP, no bruits Lungs-scattered bilateral rhonchi Heart-S1S2 irregular, no murmur, rate 110 bpm Abdomen-soft, obese, not tender, BS+, no organomegaly Extr-dermatitis, trace edema, trace legs edema diminished distal pulses Neuro-non focal Current Medications: Current Medications Sig/Ric Start time Last Medication Dose Route Stop Time Status Admin Acetaminophen 650 MG Q6P PRN 05/19 299 AC PO Acetaminophen 1,000 MG Q6P PRN 05/19 299 AC 06/05 IV 1650 Acetylcysteine 4 ML BID 06/06 2199 AC 06/08 INH 205 Albumin Human 25 GM Q8H 05/24 821 AC 06/09 IV 0021 Albuterol Sulfate 3 ML EVERY 4 HRS/AWAKE 05/30 0800 AC 06/08 INH 1652 Amiodarone HCl 200 MG DAILY 06/04 1000 AC 06/08 PO 0914 Artificial Tears 2 GTT 4 TIMES/DAY PRN 05/30 0745 AC 06/06 OPH 1557 Ascorbic Acid 500 MG DAILY 05/29 1000 AC 06/08 PO 0914 Ciprofloxacin 500 MG 0600,1800 06/07 0600 AC 06/09 PO 06/11 0559 0533 Diltiazem HCl 60 MG Q6 06/02 1800 AC 06/09 PO 0534 Docusate Sodium 100 MG DAILY AC 05/23 0820 AC 06/08 PO 0602 Glycerin 2 SPRAY Q2P PRN 05/27 0800 AC PO Glycerin/Mineral Oil 1 PEDRITO TID PRN 05/24 1100 AC 06/06 TOP 1557 Insulin Aspart 0 Q4H 05/21 1800 AC 06/09 SC 0535 Insulin Detemir 14 UNITS BID 06/04 1000 AC 06/08 SC 2208 Lorazepam 1 MG DAILY 06/08 1000 AC 06/08 PO 0915 Lorazepam 2 MG AT BEDTIME 06/07 2200 AC 06/08 PO 2206 Metoprolol Tartrate 100 MG BID 05/30 1000 AC 06/08 PO 2210 Multivitamins 1 TAB DAILY 05/29 1000 AC 06/08 PO 0914 Pantoprazole Sodium 40 MG BID 06/03 1000 AC 06/08 IV 2209 Polyethylene Glycol 17 GM DAILY 05/23 1000 AC 06/06 PO 1052 Potassium Chloride 40 MEQ DAILY 06/05 1000 AC 06/08 PO 0914 Prednisone 80 MG DAILY 06/02 1000 AC 06/08 PO 0914 Results Last 48 Hrs of Labs/Mics: Laboratory Tests 06/09/17 0525: Anion Gap 17 H, Estimated GFR 43 L, Glucose 161 H, Calcium 9.2, Phosphorus 3.5, Magnesium 2.3, Total Bilirubin 0.7, AST 20, ALT 33, Albumin 3.7, CBC w Diff MAN DIFF ORDERED, RBC 2.40 L, MCV 90.8, MCH 29.3, MCHC 32.3 L, RDW 18.3 H, MPV 10.1, Gran % 91.7 H, Lymphocytes % 6.3 L, Monocytes % 1.7, Eosinophils % 0.1, Basophils % 0.2, Absolute Granulocytes 2.6, Absolute Lymphocytes 0.2 L, Absolute Monocytes 0 L, Absolute Eosinophils 0, Absolute Basophils 0, Platelet Estimate DECREASED, Hypochromic-Microcytic 2+, Poikilocytosis 1+, Ovalocytes 1+ 06/08/17 0450: Anion Gap 17 H, Estimated GFR 43 L, Glucose 156 H, Calcium 9.3, Phosphorus 3.5, Magnesium 2.2, Total Bilirubin 0.8, AST 14, ALT 23, Albumin 3.8, PT 13.6 H , INR 1.30 H, Fibrinogen Activity 159 L, CBC w Diff NO MAN DIFF REQ, RBC 2.66 L, MCV 91.1, MCH 29.5, MCHC 32.4 L, RDW 18.8 H, MPV 9.7, Gran % 94.9 H, Lymphocytes % 4.2 L, Monocytes % 0.8 L, Eosinophils % 0, Basophils % 0.1, Absolute Granulocytes 3.5, Absolute Lymphocytes 0.2 L, Absolute Monocytes 0 L, Absolute Eosinophils 0, Absolute Basophils 0 Recent Imaging Studies: CXR-unchanged Assessment/Plan Assessment/Plan 1. Acute hypoxic respiratory failure secondary to pneumonia. Now reintubated, recurrent pneumonia-sputum positive for pseudomonas-on cipro as per ID 2. atrial fibrillation, on oral cardizem, amiodarone, metoprolol, rate acceptable 3. GARCÍA-BUN keeps increasing (?due to tube feeding), creatinine remains stable 4.Pancytopenia-likely secondary to sepsis 5. Hypernatremia Plan: continue off diuretics daily weights continue Amiodaroine, cardizem and metoprolol weaning as per pulmonary May need tracheotomy vs extubation (in that case she could deteriorate and )- discussed with patient's son. Janet refused tacheostomy once last week. Son will speak with her again this week. Continue telemetry? Yes
--- NOTE | 2017-06-09 07:34 | PN- Diabetes ---
Assessment/Plan Assessment: Patient is now reintubated. She is on a respirator and sedated. Her steroid dose is prednisone 80 mg once a day. Sputum culture is positive for pseudomonas. Patient's antibiotics have been adjusted. She is presently on 14 units of Levemir twice a day. Her tube feedingsis at 65 mL/h. She is also on every 4 hour NovoLog coverage. Most recent sugar fingerstick is 183.. The patient's serum sodium is 147. Her creatinine has gone down to 1.2 with a BUN of 104.. She is receiving free water flushes via feeding tube. The patient is being treated with a Lasix drip for pulmonary edema. This was stopped yesterday afternoon. Unfortunately the patient's chest x-ray is not improving. Also her blood pressure is becoming low. Plan: Suggest continue the same insulin. Unfortunately there has been no improvement in her chest x-ray. Also she has patterson cytopenia. Subjective Subjective: Intubated and sedated Objective Last 24 Hrs of Vital Signs/I&O Vital Signs Date Time Temp Pulse Resp B/P B/P Pulse O2 O2 Flow FiO2 Mean Ox Delivery Rate 02/ 0634 40 02/05 0534 120 119/77 02/05 0403 40 02/05 0400 96 Ventilator 40% 02/05 0226 40 02/ 0021 120 121/76 02/05 0000 97 Ventilator 40% 02/05 0000 98.2 108 26 121/76 97 Ventilator 40% 02/04 2223 40 02/04 2210 110 115/67 02/04 2057 40 02/04 2000 98 Ventilator 40% 02/04 1655 40 02/04 1600 96 Ventilator 40% 02/04 1600 99.0 125 17 122/67 97 Ventilator 40% 02/04 1412 40 02/04 1200 95 Ventilator 40% 02/04 0906 40 02/04 0800 96 Ventilator 40% 02/04 0800 98.1 131 26 113/73 96 Ventilator 40% Vital Signs Date Time Temp Pulse Resp B/P B/P Pulse O2 O2 Flow FiO2 Mean Ox Delivery Rate 02/ 0634 40 02/05 0534 120 119/77 02/05 0403 40 02/05 0400 96 Ventilator 40% 02/05 0226 40 02/05 0021 120 121/76 02/05 0000 97 Ventilator 40% 02/05 0000 98.2 108 26 121/76 97 Ventilator 40% 02/04 2223 40 02/04 2210 110 115/67 02/04 2057 40 02/04 2000 98 Ventilator 40% 02/04 1655 40 02/04 1600 96 Ventilator 40% 02/04 1600 99.0 125 17 122/67 97 Ventilator 40% 02/04 1412 40 02/04 1200 95 Ventilator 40% 02/04 0906 40 02/04 0800 96 Ventilator 40% 02/04 0800 98.1 131 26 113/73 96 Ventilator 40% Intake & Output / 0800 02/05 0000 02/04 1600 Intake Total 920 1050 Output Total 460 550 Balance 460 500 Intake, IV 100 130 Intake, Oral 0 Intake, Tube 520 520 Feeding Intake, Tube 300 400 Irrigant Number 1 Bowel Movements Output, Urine 460 550 Physical Exam General Appearance: awake, sedated, intubated Head: normal appearance Neck: normal inspection Respiratory: normal breath sounds Cardiovascular: regular rate/rhythm Current Medications: Current Medications Sig/Ric Start time Last Medication Dose Route Stop Time Status Admin Acetaminophen 650 MG Q6P PRN 05/19 0300 AC PO Acetaminophen 1,000 MG Q6P PRN 05/19 0300 AC 06/05 IV 1650 Acetylcysteine 4 ML BID 06/06 2200 AC 06/08 INH 2055 Albumin Human 25 GM Q8H 05/24 0822 AC 06/09 IV 0021 Albuterol Sulfate 3 ML EVERY 4 HRS/AWAKE 05/30 0800 AC 06/08 INH 1652 Amiodarone HCl 200 MG DAILY 06/04 1000 AC 06/08 PO 0914 Artificial Tears 2 GTT 4 TIMES/DAY PRN 05/30 0745 AC 06/06 OPH 1557 Ascorbic Acid 500 MG DAILY 05/29 1000 AC 06/08 PO 0914 Ciprofloxacin 500 MG 0600,1800 06/07 0600 AC 06/09 PO 06/11 0559 0533 Diltiazem HCl 60 MG Q6 06/02 1800 AC 06/09 PO 0534 Docusate Sodium 100 MG DAILY AC 05/23 0820 AC 06/08 PO 0602 Glycerin 2 SPRAY Q2P PRN 05/27 0800 AC PO Glycerin/Mineral Oil 1 PEDRITO TID PRN 05/24 1100 AC 06/06 TOP 1557 Insulin Aspart 0 Q4H 05/21 1800 AC 06/09 SC 0535 Insulin Detemir 14 UNITS BID 06/04 1000 AC 06/08 SC 220 Lorazepam 1 MG DAILY 06/08 1000 AC 06/08 PO 0915 Lorazepam 2 MG AT BEDTIME 06/07 2199 AC 06/08 PO 220 Metoprolol Tartrate 100 MG BID 05/30 1000 AC 06/08 PO 2210 Multivitamins 1 TAB DAILY 05/29 1000 AC 06/08 PO 0914 Pantoprazole Sodium 40 MG BID 06/03 1000 AC 06/08 IV 2209 Polyethylene Glycol 17 GM DAILY 05/23 1000 AC 06/06 PO 1052 Potassium Chloride 40 MEQ DAILY 06/05 1000 AC 06/08 PO 0914 Prednisone 80 MG DAILY 06/02 1000 AC 06/08 PO 0914 Findings Pertinent Lab/Silvano Results: Laboratory Tests 06/09 524 Chemistry Sodium (137 - 145 mmol/L) 147 H Potassium (3.5 - 5.1 mmol/L) 4.9 Chloride (98 - 107 mmol/L) 103 Carbon Dioxide (22 - 30 mmol/L) 27 Anion Gap (5 - 16) 17 H BUN (7 - 17 mg/dL) 110 *H Creatinine (0.5 - 1.0 mg/dL) 1.2 H Estimated GFR (>60 ml/min) 43 L Glucose (65 - 99 mg/dL) 161 H Calcium (8.4 - 10.2 mg/dL) 9.2 Phosphorus (2.5 - 4.5 mg/dL) 3.5 Magnesium (1.6 - 2.3 mg/dL) 2.3 Total Bilirubin (0.2 - 1.3 mg/dL) 0.7 AST (14 - 36 U/L) 20 ALT (9 - 52 U/L) 33 Albumin (3.5 - 5.0 g/dL) 3.7 Hematology CBC w Diff MAN DIFF ORDERED WBC (4.8 - 10.8 /CUMM) 2.8 L RBC (4.20 - 5.40 /CUMM) 2.40 L Hgb (12.0 - 16.0 G/DL) 7.0 *L Hct (37 - 47 %) 21.8 L MCV (81.0 - 99.0 FL) 90.8 MCH (27.0 - 31.0 PG) 29.3 MCHC (33.0 - 37.0 G/DL) 32.3 L RDW (11.5 - 14.5 %) 18.3 H Plt Count (130 - 400 /CUMM) 31 L MPV (7.4 - 10.4 FL) 10.1 Gran % (42.2 - 75.2 %) 91.7 H Lymphocytes % (20.5 - 51.1 %) 6.3 L Monocytes % (1.7 - 9.3 %) 1.7 Eosinophils % (0 - 5 %) 0.1 Basophils % (0.0 - 2.0 %) 0.2 Absolute Granulocytes (1.4 - 6.5 /CUMM) 2.6 Absolute Lymphocytes (1.2 - 3.4 /CUMM) 0.2 L Absolute Monocytes (0.10 - 0.60 /CUMM) 0 L Absolute Eosinophils (0.0 - 0.7 /CUMM) 0 Absolute Basophils (0.0 - 0.2 /CUMM) 0 Platelet Estimate (ADEQUATE) DECREASED Hypochromic-Microcytic 2+ Poikilocytosis 1+ Ovalocytes 1+
--- NOTE | 2017-06-09 07:34 | PN- Resident CRCU ---
Jaron RAMOS,[facility] 06/09/17 0734: Subjective HPI/CRCU Issues: Atrial Fibrilliation Thrombocytopenia Acute Hypoxic Respiratory Failure Anemia 24 Hour Events: No acute events overnight. Had a drop in Hb this morning to 7.0 requiring 1 unit pRBC. Hematology recommends 1 unit Plt transfusion. Current vent settings: AC mode, Vt 480, RR 12, PIP 32, PEEP 5 In the last 24 hours: Input-2890 mL, output 1790 mL Total volume input 22,337 mL, output 37,729 mL. Objective Vital Signs & I&O Last 8 Hrs of Vitals and I&O: . Exam General Appearance: no apparent distress, alert, awake, intubated, mild distress Head: atraumatic, normal appearance Respiratory: chest non-tender, decreased breath sounds, wheezing Cardiovascular: tachycardia, irregularly irregular Gastrointestinal: soft, non-tender Extremities: edema of right upper and lower extremity Cranial Nerves: normal hearing Skin: intact Skin Temp/Moisture Exam: Warm/Dry Sepsis Skin Exam (color): Normal for Ethnicity Weaning Parameters NIF: 23 Minute Volume: 9.08 Resp rate: 16 Vt: 565 Heart Rate: 120 Weaning Schedule Start Time: 15 Minute Volume: 12.5 Resp Rate: 42 Vt: 285 Heart Rate: 125 End Time: 0922 Minute Volume: 10.5 Resp Rate: 40 Vt: 316 Heart Rate: 144 Current Medications: Current Medications Sig/Ric Start time Last Medication Dose Route Stop Time Status Admin Acetaminophen 650 MG Q6P PRN 05/19 0300 AC PO Acetaminophen 1,000 MG Q6P PRN 05/19 0300 AC 06/05 IV 1650 Acetylcysteine 4 ML BID 06/06 2200 AC 06/09 INH 0805 Albumin Human 25 GM Q8H 05/24 0822 AC 06/09 IV 0818 Albuterol Sulfate 3 ML EVERY 4 HRS/AWAKE 05/30 0800 AC 06/09 INH 1157 Amiodarone HCl 200 MG DAILY 06/04 1000 AC 06/09 PO 0859 Artificial Tears 2 GTT 4 TIMES/DAY PRN 05/30 0745 AC 06/06 OPH 1557 Ascorbic Acid 500 MG DAILY 05/29 1000 AC 06/09 PO 0859 Ciprofloxacin 500 MG 0600,1800 06/07 0600 AC 06/09 PO 06/11 0559 0533 Diltiazem HCl 60 MG Q6 06/02 1800 AC 06/09 PO 1205 Diphenhydramine HCl 50 MG ONCE ONE 06/09 0830 DC 06/09 IV 06/09 0831 0858 Docusate Sodium 100 MG DAILY AC 05/23 0820 AC 06/08 PO 0602 Furosemide 40 MG 1330 06/09 1330 DC IV 06/09 1331 Glycerin 2 SPRAY Q2P PRN 05/27 0800 AC PO Glycerin/Mineral Oil 1 PEDRITO TID PRN 05/24 1100 AC 06/06 TOP 1557 Insulin Aspart 0 Q4H 05/21 1800 AC 06/09 SC 1003 Insulin Detemir 14 UNITS BID 06/04 1000 AC 06/09 SC 0900 Lorazepam 1 MG DAILY 06/08 1000 AC 06/09 PO 0901 Lorazepam 2 MG AT BEDTIME 06/07 2200 AC 06/08 PO 2206 Methylprednisolone 100 MG ONCE ONE 06/09 0830 DC 06/09 IV 06/09 0831 0858 Metoprolol Tartrate 100 MG BID 05/30 1000 AC 06/09 PO 0859 Multivitamins 1 TAB DAILY 05/29 1000 AC 06/09 PO 0859 Pantoprazole Sodium 40 MG BID 06/03 1000 AC 06/09 IV 0858 Polyethylene Glycol 17 GM DAILY 05/23 1000 AC 06/06 PO 1052 Potassium Chloride 40 MEQ DAILY 06/05 1000 AC 06/08 PO 0914 Prednisone 80 MG DAILY 06/02 1000 AC 06/08 PO 0914 Impression/Plan Impression/Problem List Impression: 86 year old woman with past medical history of hypertension, hyperlipidemia, ID s/p PCI with stent, diabetes mellitus, and restless leg syndrome, history of atrial fibrillation with anticoagulation on hold due to severe thrombocytopenia was sent in from extended care facility for hypoxia, leukocytosis and productive cough. She was admitted on telemetry floor and transfered to ICU after patient desaturated became unresponsive. Assessment and Plan: Acute hypoxic respiratory failure likely secondary to HCAP: * Her repeat sputum culture is growing Pseudomonas sensitive to Ciprofloxacin. * Her CXR today shows persistent pulmonary vascular congestion and bilateral pleural effusions. She appears to have chronic left lower lobe collapse. Will further decrease her free water flushes to reduce risk of pulmonary edema. * Continue Ciprofloxacin 500mg BID. * ID recs appreciated. * Continue mucomist BID nebs and aggressive pulmonary toilet. * She has a rising BUN, which is concerning for a internal GI bleed. Her last stools were guiac positive. * Will review goals of care discussion with family again. Atrial Fibrilliation: * Will continue metoprolol 100mg BID. * Continue oral Amiodarone at 200mg QD. * Continue Cardizem 60mg q6. Can be decreased to 30mg if not tolerated by blood pressure. * Discontinued Elliquis 2.5mg BID as Plt count is falling. * Echo - Normal left ventricular ejection fraction visually estimated at > 60% . Immune Thrombocytopenia: * Her platelets continue to decline. Could be likely due to her reinfection. * Continue Prednisone again to 80mg. * Daily CBC * Will transfuse another unit of Plt today and repeat CBC. * s/p 1 unit transfusion of platelets 05/22. 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 * Will continue to follow DIC panel. * Can transfuse Plt or IVIG if Plt <30K and actively bleeding. GARCÍA on CKD: /resolved * Cr 1.2 today. * Was likely contrast induced nephropathy initially. * Nephro recs appreciated. * Strict I&Os. Diabetes Mellitus: * Continue tube feeds with Glucerna 1.2. * Levemir 14mg BID * Insulin SS. Adjusted per Endo's recommendations. Lower Extremity Skin Changes: /resolved * Was evaluated by vascular surgery. Recommend no surgical intervention at this time. * Small ulcer on left/right foot base. Wound care notes appreciated. History of restless leg syndrome: * Sinemet was recently discontinued * Lyrica on hold currently. * Lubriderm to affected skin. DVT Prophylaxis: ALPS Code: Full Problem List: 1. A-fib Pain Ratin Tomorrow's Labs & Rationales: CBC, ICU bundle Plan DVT/Prophylaxis: Jordi Trujillo MD 06/09/17 0904: Attending MD Review Statement Attending Sign Off Attending Cosign Statement: I have: examined this patient, reviewed avalbl EMR data, personally reviewd images, discussd w/resident/PA/LIVE AMMUNITION INSPECTOR, discussed mgmt plan w/ida, discussed mgmt plan w/CM, discussed mgmt plan w/pt, agreed w/resident/PA/LIVE AMMUNITION INSPECTOR, amended to note. Other Findings: Jordi Lopez M.D. have examined this patient, reviewed available EMR data, personally reviewed images, discussed with resident/PA/LIVE AMMUNITION INSPECTOR, discussed management plan with housestaff and nursing staff, discussed managment plan all of healthcare providers, discussed management plan with patient and/or family, agreed with resident/PA/LIVE AMMUNITION INSPECTOR. The past history and parts of the chart have been autopopulated. Impression 86 year old woman resolved septic shock a.fib RVR acute hypoxemic respiratory failure GARCÍA improved anemia/throbocytopenia Plan -prbc and plt transfusion today -cont mechanical ventilation - SBT trials -ID f/u - on ceftazadime changed to ciprofloxacin -cardiology, ID f/u -f/u hematology recommendations, stress steroids can be tapered per heme -endocrinology appreciated -nephrology consultation appreciated -family is unsure of goals of care and unsure if will pursue trach -free water flushes for hypernatremia DVT prophylaxis at all times TTS 35 min
--- NOTE | 2017-06-09 07:49 | PN- Hematology ---
Subjective Subjective: She remains intubated. She is arousable. She denies any new pain. Review of Systems: Limited due to intubated. She denies pain. Objective Vital Signs and I&Os Vital Signs Date Time Temp Pulse Resp B/P B/P Pulse O2 O2 Flow FiO2 Mean Ox Delivery Rate 06/09 0634 40 06/09 0534 120 119/77 02/ 0403 40 02/ 0400 96 Ventilator 40% 06/09 0226 40 06/09 0021 120 121/76 02/ 0000 97 Ventilator 40% 02/ 0000 98.2 108 26 121/76 97 Ventilator 40% 06/08 2223 40 02/ 2210 110 115/67 02/ 2057 40 02/ 2000 98 Ventilator 40% 02/ 1655 40 / 1600 96 Ventilator 40% / 1600 99.0 125 17 122/67 97 Ventilator 40% / 1412 40 02/ 1200 95 Ventilator 40% / 0906 40 / 0800 96 Ventilator 40% / 0800 98.1 131 26 113/73 96 Ventilator 40% Intake & Output / 0800 02/05 0000 02/04 1600 02/04 0800 02/04 0000 02/03 1600 Intake Total 920 9944 905 3102 1020 Output Total 460 550 690 650 500 Balance 460 500 190 370 520 Intake, IV 100 130 100 100 100 Intake, Oral 0 0 Intake, Tube 520 520 520 520 520 Feeding Intake, Tube 300 400 260 400 400 Irrigant Number 1 1 1 Bowel Movements Output, Urine 460 550 690 650 500 Patient 129.274 kg Weight Physical Exam: General Appearance: arousable, comfortable, intubated Ears, Nose, Throat: ET tube in place Respiratory: chest non-tender, rhonchi, decrease BS on left,FiO2 40% Cardiovascular: tachycardia, irregularly irregular Abdomen: normal bowel sounds, soft, non-tender Extremities: Right upper extremity 1+ edema, ecchymoses in upper extremities, hyperpigmented lower extremities, RUE with PICC line Skin: dry Neurologic/Psychiatric: arousable, follows command, intubated Current Medications: Current Medications Sig/Ric Start time Last Medication Dose Route Stop Time Status Admin Acetaminophen 650 MG Q6P PRN 05/19 299 AC PO Acetaminophen 1,000 MG Q6P PRN 05/19 299 AC 06/05 IV 1650 Acetylcysteine 4 ML BID 06/06 2200 AC 06/08 INH 2055 Albumin Human 25 GM Q8H 05/24 0822 AC 06/09 IV 0021 Albuterol Sulfate 3 ML EVERY 4 HRS/AWAKE 05/30 0800 AC 06/08 INH 1652 Amiodarone HCl 200 MG DAILY 06/04 1000 AC 06/08 PO 0914 Artificial Tears 2 GTT 4 TIMES/DAY PRN 05/30 0745 AC 06/06 OPH 1557 Ascorbic Acid 500 MG DAILY 05/29 1000 AC 06/08 PO 0914 Ciprofloxacin 500 MG 0600,1800 06/07 0600 AC 06/09 PO 06/11 0559 0533 Diltiazem HCl 60 MG Q6 06/02 1800 AC 06/09 PO 0534 Docusate Sodium 100 MG DAILY AC 05/23 0820 AC 06/08 PO 0602 Glycerin 2 SPRAY Q2P PRN 05/27 0800 AC PO Glycerin/Mineral Oil 1 PEDRITO TID PRN 05/24 1100 AC 06/06 TOP 1557 Insulin Aspart 0 Q4H 05/21 1800 AC 06/09 SC 0535 Insulin Detemir 14 UNITS BID 06/04 1000 AC 06/08 SC 2208 Lorazepam 1 MG DAILY 06/08 1000 AC 06/08 PO 0915 Lorazepam 2 MG AT BEDTIME 06/07 2200 AC 06/08 PO 2206 Metoprolol Tartrate 100 MG BID 05/30 1000 AC 06/08 PO 2210 Multivitamins 1 TAB DAILY 05/29 1000 AC 06/08 PO 0914 Pantoprazole Sodium 40 MG BID 06/03 1000 AC 06/08 IV 2209 Polyethylene Glycol 17 GM DAILY 05/23 1000 AC 06/06 PO 1052 Potassium Chloride 40 MEQ DAILY 06/05 1000 AC 06/08 PO 0914 Prednisone 80 MG DAILY 06/02 1000 AC 06/08 PO 0914 Results Last 24 Hours of Lab Results: Laboratory Tests 06/09 524 Chemistry Sodium (137 - 145 mmol/L) 147 H Potassium (3.5 - 5.1 mmol/L) 4.9 Chloride (98 - 107 mmol/L) 103 Carbon Dioxide (22 - 30 mmol/L) 27 Anion Gap (5 - 16) 17 H BUN (7 - 17 mg/dL) 110 *H Creatinine (0.5 - 1.0 mg/dL) 1.2 H Estimated GFR (>60 ml/min) 43 L Glucose (65 - 99 mg/dL) 161 H Calcium (8.4 - 10.2 mg/dL) 9.2 Phosphorus (2.5 - 4.5 mg/dL) 3.5 Magnesium (1.6 - 2.3 mg/dL) 2.3 Total Bilirubin (0.2 - 1.3 mg/dL) 0.7 AST (14 - 36 U/L) 20 ALT (9 - 52 U/L) 33 Albumin (3.5 - 5.0 g/dL) 3.7 Hematology CBC w Diff MAN DIFF ORDERED WBC (4.8 - 10.8 /CUMM) 2.8 L RBC (4.20 - 5.40 /CUMM) 2.40 L Hgb (12.0 - 16.0 G/DL) 7.0 *L Hct (37 - 47 %) 21.8 L MCV (81.0 - 99.0 FL) 90.8 MCH (27.0 - 31.0 PG) 29.3 MCHC (33.0 - 37.0 G/DL) 32.3 L RDW (11.5 - 14.5 %) 18.3 H Plt Count (130 - 400 /CUMM) 31 L MPV (7.4 - 10.4 FL) 10.1 Gran % (42.2 - 75.2 %) 91.7 H Lymphocytes % (20.5 - 51.1 %) 6.3 L Monocytes % (1.7 - 9.3 %) 1.7 Eosinophils % (0 - 5 %) 0.1 Basophils % (0.0 - 2.0 %) 0.2 Absolute Granulocytes (1.4 - 6.5 /CUMM) 2.6 Absolute Lymphocytes (1.2 - 3.4 /CUMM) 0.2 L Absolute Monocytes (0.10 - 0.60 /CUMM) 0 L Absolute Eosinophils (0.0 - 0.7 /CUMM) 0 Absolute Basophils (0.0 - 0.2 /CUMM) 0 Platelet Estimate (ADEQUATE) DECREASED Hypochromic-Microcytic 2+ Poikilocytosis 1+ Ovalocytes 1+ Assessment/Plan Assessment/Recommendations: Ms. 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 She has been having new cough a few days ago. CTA demonstrated moderate atelectasis/consolidation in the left upper and lower lobes. There was mild right base atelectasis and moderate left and [id number] right pleural effusions. She was briefly in shock and required Levophed. She was improving on Oxacillin. She was on Zosyn and is now on ceftazidime. She remains in atrial fibrillation with RVR. She is on metoprolol, amiodarone, and diltiazem. She remains intubated and on FiO2 of 40%. Leukopenia improved over the weekend. WBC is worse this AM. Unclear if this is true. Hemoglobin/hematocrit also worsened. She was also noted to have heme positive stool. She may have underlying bleeding. Transfusion with 1 unit of platelet is reasonable. She is on prednisone 80 mg daily. If platelet transfusion does not improve her platelet, a trial of high dose steroid such as dexamethasone 40 mg IV may be tried. DIC panel has been stable with low fibrinogen. Pancytopenia: -Continue prednisone 80 mg daily -Continue to monitor DIC: fibrinogen and INR -Consider ERMA in the future for anemia of chronic disease -Continue to hold apixaban -Transfuse with 1 unit of platelet -Check platelet count 1 hour after tranfusion Acute hypoxic respiratory failure: -Management as per primary ICU team Atrial fibrillation with RVR: -Management as per cardiology/ICU -medications: amiodarone, diltiazem, metoprolol Please call [phone] with any questions or concerns. Problem List: 1. Pneumonia 2. Pancytopenia 3. Atrial fibrillation with RVR
[2017-06-09 08:00] VITALS: BP 130/70
--- NOTE | 2017-06-09 11:17 | PN- Infect Dx ---
Subjective Subjective: Afebrile on steroids. She does not offer any complaints. Objective Last 24 Hrs of Vital Signs/I&O Vital Signs Date Time Temp Pulse Resp B/P B/P Pulse O2 O2 Flow FiO2 Mean Ox Delivery Rate 06/09 0859 120/69 06/09 0817 40 06/09 0800 98.9 126 16 130/70 99 Ventilator 40% 06/09 0634 40 06/09 0534 120 119/77 06/09 0403 40 06/09 0400 96 Ventilator 40% 06/09 0226 40 06/09 0021 120 121/76 02/05 0000 97 Ventilator 40% 02/ 0000 98.2 108 26 121/76 97 Ventilator 40% 06/08 2223 40 06/08 2210 110 115/67 06/08 2057 40 06/08 2000 98 Ventilator 40% / 1655 40 06/08 1600 96 Ventilator 40% 06/08 1600 99.0 125 17 122/67 97 Ventilator 40% / 1412 40 06/08 1200 95 Ventilator 40% Intake & Output 06/09 1600 06/09 0806/09 0000 Intake Total 920 920 Output Total 780 460 Balance 140 460 Intake, IV 100 100 Intake, Tube 520 520 Feeding Intake, Tube 300 300 Irrigant Output, Urine 780 460 Patient 286 lb Weight Physical Exam Other Physical Findings: She appears comfortable on the ventilator in no acute distress Lungs are clear Heart regular rhythm with no murmur Abdomen is soft, nontender with positive bowel sounds Extremities chronic venous stasis changes both lower extremities; PICC in the right upper extremity with no inflammation at the site Faust catheter remains in place Results Last 24 Hours of Lab Results: Laboratory Tests 06/09 524 Chemistry Sodium (137 - 145 mmol/L) 147 H Potassium (3.5 - 5.1 mmol/L) 4.9 Chloride (98 - 107 mmol/L) 103 Carbon Dioxide (22 - 30 mmol/L) 27 Anion Gap (5 - 16) 17 H BUN (7 - 17 mg/dL) 110 *H Creatinine (0.5 - 1.0 mg/dL) 1.2 H Estimated GFR (>60 ml/min) 43 L Glucose (65 - 99 mg/dL) 161 H Calcium (8.4 - 10.2 mg/dL) 9.2 Phosphorus (2.5 - 4.5 mg/dL) 3.5 Magnesium (1.6 - 2.3 mg/dL) 2.3 Total Bilirubin (0.2 - 1.3 mg/dL) 0.7 AST (14 - 36 U/L) 20 ALT (9 - 52 U/L) 33 Albumin (3.5 - 5.0 g/dL) 3.7 Hematology CBC w Diff MAN DIFF ORDERED WBC (4.8 - 10.8 /CUMM) 2.8 L RBC (4.20 - 5.40 /CUMM) 2.40 L Hgb (12.0 - 16.0 G/DL) 7.0 *L Hct (37 - 47 %) 21.8 L MCV (81.0 - 99.0 FL) 90.8 MCH (27.0 - 31.0 PG) 29.3 MCHC (33.0 - 37.0 G/DL) 32.3 L RDW (11.5 - 14.5 %) 18.3 H Plt Count (130 - 400 /CUMM) 31 L MPV (7.4 - 10.4 FL) 10.1 Gran % (42.2 - 75.2 %) 91.7 H Lymphocytes % (20.5 - 51.1 %) 6.3 L Monocytes % (1.7 - 9.3 %) 1.7 Eosinophils % (0 - 5 %) 0.1 Basophils % (0.0 - 2.0 %) 0.2 Absolute Granulocytes (1.4 - 6.5 /CUMM) 2.6 Absolute Lymphocytes (1.2 - 3.4 /CUMM) 0.2 L Absolute Monocytes (0.10 - 0.60 /CUMM) 0 L Absolute Eosinophils (0.0 - 0.7 /CUMM) 0 Absolute Basophils (0.0 - 0.2 /CUMM) 0 Platelet Estimate (ADEQUATE) DECREASED Hypochromic-Microcytic 2+ Poikilocytosis 1+ Ovalocytes 1+ Last 24 Hours of Silvano Results: Sputum culture June 06 positive for Pseudomonas, which is now reported intermediate to Ceftazidime Recent Imaging Studies: Chest x-ray June 09 reveals persistent pulmonary vascular congestion, pulmonary edema and bilateral pleural effusions Assessment/Plan Impression: Stable, with temperatures remaining normal, now on Ciprofloxacin, Day 3 of treatment for possible Pseudomonas pneumonia, with the recent sputum culture for Pseudomonas intermediate to Ceftazidime, though it was initially sensitive. 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 Suggestion: 1. Discontinue all nonessential medications 2. Further management of her fluid status per Cardiology 3. Further management of her steroids per Hematology 4. Continue Ciprofloxacin
[2017-06-09 12:00] VITALS: BP 120/62
[2017-06-09 16:00] VITALS: BP 108/60
[2017-06-09 19:01] LABS: ABSOLUTE BASOPHIL COUNT 0 /CUMM (0.0-0.2); ABSOLUTE EOSINOPHIL COUNT 0 /CUMM (0.0-0.7); ABSOLUTE GRANULOCYTE CT 2.6 /CUMM (1.4-6.5); ABSOLUTE LYMPH COUNT 0.2 /CUMM (1.2-3.4); ABSOLUTE MONOCYTE COUNT 0 /CUMM (0.10-0.60); BASOPHIL % 0 % (0.0-2.0); EOSINOPHIL % 0.1 % (0-5); HEMATOCRIT 23.8 % (37-47); MEAN CORPUSCULAR HGB 29.3 PG (27.0-31.0); MEAN CORPUSCULAR HGB CONC 32.5 G/DL (33.0-37.0); MEAN CORPUSCULAR VOLUME 90.2 FL (81.0-99.0); MEAN PLATELET VOLUME 10.5 FL (7.4-10.4); RBC DISTRIBUTION WIDTH 17.9 % (11.5-14.5); RED BLOOD CELL CT 2.64 /CUMM (4.20-5.40); WHITE BLOOD CELL COUNT 2.8 /CUMM (4.8-10.8)
[2017-06-09 19:20] LABS: GRANULOCYTE % 92.4 % (42.2-75.2); PLATELET COUNT 45 /CUMM (130-400)
[2017-06-10] VITALS: BP 114/70
[2017-06-10 05:30] LABS: ABSOLUTE BASOPHIL COUNT 0 /CUMM (0.0-0.2); ABSOLUTE EOSINOPHIL COUNT 0 /CUMM (0.0-0.7); ABSOLUTE GRANULOCYTE CT 2.6 /CUMM (1.4-6.5); ABSOLUTE LYMPH COUNT 0.2 /CUMM (1.2-3.4); ABSOLUTE MONOCYTE COUNT 0.1 /CUMM (0.10-0.60); BASOPHIL % 0 % (0.0-2.0); EOSINOPHIL % 0 % (0-5); MEAN CORPUSCULAR HGB 29.4 PG (27.0-31.0); MEAN CORPUSCULAR HGB CONC 32.5 G/DL (33.0-37.0); MEAN CORPUSCULAR VOLUME 90.2 FL (81.0-99.0); RBC DISTRIBUTION WIDTH 18.1 % (11.5-14.5); RED BLOOD CELL CT 2.66 /CUMM (4.20-5.40); WHITE BLOOD CELL COUNT 2.9 /CUMM (4.8-10.8)
[2017-06-10 05:40] LABS: PT 14.2 SEC (9.4-12.5); PTT 34 SEC (25-37)
[2017-06-10 05:53] LABS: GRANULOCYTE % 90.4 % (42.2-75.2)
[2017-06-10 05:54] LABS: PLATELET COUNT 35 /CUMM (130-400)
--- NOTE | 2017-06-10 05:58 | RADIOLOGY REPORT ---
EXAMINATION: XR PORTABLE CHEST CLINICAL INFORMATION: Pulmonary edema. Lines and tubes. COMPARISON: Portable chest 06/09/2017, 5:58 AM TECHNIQUE: Portable frontal view of the chest was obtained. 5:29 AM FINDINGS: Patient's rotated to left. Endotracheal tube catheter about 3 cm above krystal. Nasogastric tube passes down into the stomach. Right-sided PICC line catheter tip at caval atrial junction. There is persistent bilateral airspace disease, pulmonary edema. There is dense bilateral lung bases of infiltrate/atelectasis and effusions. IMPRESSION: 1. Endotracheal tube present as well krystal. 2. Nasogastric tube in stomach. 3. Persistent pulmonary edema and bilateral pleural effusions and likely bibasilar infiltrate/atelectasis.
--- NOTE | 2017-06-10 07:16 | PN- Diabetes ---
Assessment/Plan Assessment: Patient is now reintubated. She is on a respirator and sedated. Her steroid dose is prednisone 80 mg once a day. Sputum culture is positive for pseudomonas. Patient's antibiotics have been adjusted. She is presently on 14 units of Levemir twice a day. Her tube feedingsis at 65 mL/h. She is also on every 4 hour NovoLog coverage. Most recent sugar fingerstick is 183.. The patient's serum sodium is 147. Her creatinine has gone down to 1.2 with a BUN of 104.. She is receiving free water flushes via feeding tube. Unfortunately the patient's chest x-ray is not improving. Also her blood pressure is becoming low. The most recent blood sugars have become elevated at 337 and 348. The patient received 100 units of Solu-Medrol prior to a blood transfusion which was later in the day yesterday which probably resulted in the increased blood sugars. Plan: Suggest if we are going to go to a high dose of dexamethasone today we will need to increase her insulin. If high-dose dexamethasone is used we should increase her Levemir to 20 units twice a day. In addition in the face of high-dose steroids we will need to increase her sliding scale. Suggest increase sliding scale NovoLog to 120-150 give 12 units NovoLog, 151-200 give 14 units NovoLog, 201-250 give 16 units NovoLog, 251-300 give 18 units NovoLog, 301-350 give 20 units NovoLog, 351-400 give 22 units NovoLog. If high dose dexamethasone is not useD we can keep the patient on her present insulin Subjective Subjective: Intubated and sedated Objective Last 24 Hrs of Vital Signs/I&O Vital Signs Date Time Temp Pulse Resp B/P B/P Pulse O2 O2 Flow FiO2 Mean Ox Delivery Rate 06/10 0655 40 02/ 0547 122 111/79 02/06 0410 40 02/ 0400 98 Ventilator 40% 06/10 0155 40 02/ 0001 121 101/70 02/06 0000 97 Ventilator 40% 02/ 0000 97.8 120 15 114/70 97 Ventilator 40% 02/05 2359 122 113/73 02/05 2227 40 02/1999 40 06/09 1999 97 Ventilator 40% 02/05 1645 40 02/05 1600 98.8 106 17 108/60 96 Ventilator 40% 02/05 1600 96 Ventilator 40% 02/05 1418 99.8 02/05 1415 40 02/05 1315 101.2 02/05 1300 101.2 02/05 1205 102/87 02/05 1202 40 02/05 1200 96 Ventilator 40% 02/05 1200 99.1 116 19 120/62 96 Ventilator 40% 02/ 0859 120/69 02/05 0817 40 02/05 0800 98.9 126 16 130/70 99 Ventilator 40% / 0800 99 Ventilator 40% Intake & Output 06/10 08 02 0000 02/ 1600 Intake Total 1191 1080 1400 Output Total 600 810 600 Balance 591 270 800 Intake, Blood 550 Product Intake, IV 100 110 260 Intake, Oral 0 Intake, Tube 486 430 320 Feeding Intake, Tube 605 540 270 Irrigant Number 0 1 Bowel Movements Output, Urine 600 810 600 Patient 287 lb Weight Weight Bed scale Measurement Method Vital Signs Date Time Temp Pulse Resp B/P B/P Pulse O2 O2 Flow FiO2 Mean Ox Delivery Rate 06/10 0655 40 06/10 0547 122 111/79 02 0410 40 02 0400 98 Ventilator 40% 06/10 0155 40 02 0001 121 101/70 02/06 0000 97 Ventilator 40% 02/ 0000 97.8 120 15 114/70 97 Ventilator 40% 02/05 2359 122 113/73 02/05 2227 40 02/ 2000 40 02/ 2000 97 Ventilator 40% 02/05 1645 40 02/05 1600 98.8 106 17 108/60 96 Ventilator 40% 02/ 1600 96 Ventilator 40% / 1418 99.8 02/ 1415 40 02/05 1315 101.2 02/05 1300 101.2 02/05 1205 102/87 02/05 1202 40 02/05 1200 96 Ventilator 40% 02/05 1200 99.1 116 19 120/62 96 Ventilator 40% 06/09 0859 120/69 /05 0817 40 / 0800 98.9 126 16 130/70 99 Ventilator 40% / 0800 99 Ventilator 40% Intake & Output 06/10 0800 02/ 0000 02/05 1600 Intake Total 1191 1080 1400 Output Total 600 810 600 Balance 591 270 800 Intake, Blood 550 Product Intake, IV 100 110 260 Intake, Oral 0 Intake, Tube 486 430 320 Feeding Intake, Tube 605 540 270 Irrigant Number 0 1 Bowel Movements Output, Urine 600 810 600 Patient 287 lb Weight Weight Bed scale Measurement Method Physical Exam General Appearance: sedated, intubated Head: normal appearance Respiratory: normal breath sounds Cardiovascular: tachycardia, irregularly irregular Current Medications: Current Medications Sig/Ric Start time Last Medication Dose Route Stop Time Status Admin Acetaminophen 1,000 MG .STK-MED ONE 06/09 1329 DC IV 06/09 1330 Acetaminophen 650 MG Q6P PRN 05/19 0300 AC PO Acetaminophen 1,000 MG Q6P PRN 05/19 0300 AC 06/09 IV 1315 Acetylcysteine 4 ML BID 06/06 2200 AC 06/09 INH 2124 Albumin Human 25 GM Q8H 05/24 0822 AC 06/10 IV 0001 Albuterol Sulfate 3 ML EVERY 4 HRS/AWAKE 05/30 0800 AC 06/09 INH 2123 Amiodarone HCl 200 MG DAILY 06/04 1000 AC 06/09 PO 0859 Artificial Tears 2 GTT 4 TIMES/DAY PRN 05/30 0745 AC 06/06 OPH 1557 Ascorbic Acid 500 MG DAILY 05/29 1000 AC 06/09 PO 0859 Ciprofloxacin 500 MG 0600,1800 06/07 0600 AC 06/10 PO 06/11 0559 0547 Diltiazem HCl 60 MG Q6 06/02 1800 AC 06/10 PO 0547 Diphenhydramine HCl 50 MG ONCE ONE 06/09 0830 DC 06/09 IV 06/09 0831 0858 Docusate Sodium 100 MG DAILY AC 05/23 0820 AC 06/10 PO 0549 Furosemide 40 MG 1330 06/09 1330 DC 06/09 IV 06/09 1331 1315 Glycerin 2 SPRAY Q2P PRN 05/27 0800 AC PO Glycerin/Mineral Oil 1 PEDRITO TID PRN 05/24 1100 AC 06/06 TOP 1557 Insulin Aspart 0 Q4H 05/21 1800 AC 06/10 SC 0546 Insulin Detemir 14 UNITS BID 06/04 1000 AC 06/09 SC 2208 Lorazepam 1 MG DAILY 06/08 1000 AC 06/09 PO 0901 Lorazepam 2 MG AT BEDTIME 06/07 2200 AC 06/09 PO 2207 Methylprednisolone 100 MG ONCE ONE 06/09 0830 DC 06/09 IV 06/09 0831 0858 Metoprolol Tartrate 100 MG BID 05/30 1000 AC 06/09 PO 2359 Multivitamins 1 TAB DAILY 05/29 1000 AC 06/09 PO 0859 Pantoprazole Sodium 40 MG BID 06/03 1000 AC 06/09 IV 2208 Polyethylene Glycol 17 GM DAILY 05/23 1000 AC 06/06 PO 1052 Potassium Chloride 40 MEQ DAILY 06/05 1000 AC 06/08 PO 0914 Prednisone 80 MG DAILY 06/02 1000 AC 06/08 PO 0914 Findings Pertinent Lab/Silvano Results: Laboratory Tests 06/10 06/10 0645 0420 Blood Gas pH (7.35 - 7.45 PH) 7.44 pCO2 (35 - 45 TORR) 35 pO2 (80 - 100 TORR) 77 L HCO3 (21 - 28 MEQ/L) 23 ABG O2 Sat (Measured) (>96.0 %) 94.0 L Carboxyhemoglobin (1.5 - 5.0 %) 1.0 L O2 Concentration % .4 Respiration Rate (BPM) 12 O2 Delivery Method VENT Vent Mode AC Expiratory Pressure (CMH2O/P) 5 Tidal Volume (CC) 480 Chemistry Sodium (137 - 145 mmol/L) 146 H Potassium (3.5 - 5.1 mmol/L) 4.8 Chloride (98 - 107 mmol/L) 102 Carbon Dioxide (22 - 30 mmol/L) 26 Anion Gap (5 - 16) 18 H BUN (7 - 17 mg/dL) 118 *H Creatinine (0.5 - 1.0 mg/dL) 1.2 H Estimated GFR (>60 ml/min) 43 L Glucose (65 - 99 mg/dL) 304 H Calcium (8.4 - 10.2 mg/dL) 9.1 Phosphorus (2.5 - 4.5 mg/dL) 4.9 H Magnesium (1.6 - 2.3 mg/dL) 2.4 H Total Bilirubin (0.2 - 1.3 mg/dL) 1.0 AST (14 - 36 U/L) 25 ALT (9 - 52 U/L) 41 Albumin (3.5 - 5.0 g/dL) 3.8 Coagulation PT (9.4 - 12.5 SEC) 14.2 H INR (0.90 - 1.19) 1.36 H APTT (25 - 37 SEC) 34 Fibrinogen Activity (200 - 393 MG/DL) 132 L Hematology CBC w Diff NO MAN DIFF REQ WBC (4.8 - 10.8 /CUMM) 2.9 L RBC (4.20 - 5.40 /CUMM) 2.66 L Hgb (12.0 - 16.0 G/DL) 7.8 L Hct (37 - 47 %) 24.0 L MCV (81.0 - 99.0 FL) 90.2 MCH (27.0 - 31.0 PG) 29.4 MCHC (33.0 - 37.0 G/DL) 32.5 L RDW (11.5 - 14.5 %) 18.1 H Plt Count (130 - 400 /CUMM) 35 L MPV (7.4 - 10.4 FL) 10.0 Gran % (42.2 - 75.2 %) 90.4 H Lymphocytes % (20.5 - 51.1 %) 7.3 L Monocytes % (1.7 - 9.3 %) 2.3 Eosinophils % (0 - 5 %) 0 Basophils % (0.0 - 2.0 %) 0 Absolute Granulocytes (1.4 - 6.5 /CUMM) 2.6 Absolute Lymphocytes (1.2 - 3.4 /CUMM) 0.2 L Absolute Monocytes (0.10 - 0.60 /CUMM) 0.1 Absolute Eosinophils (0.0 - 0.7 /CUMM) 0 Absolute Basophils (0.0 - 0.2 /CUMM) 0 Miscellaneous Phlebotomy Draw Site LEFT RADIAL 06/09 1700 Hematology CBC w Diff NO MAN DIFF REQ WBC (4.8 - 10.8 /CUMM) 2.8 L RBC (4.20 - 5.40 /CUMM) 2.64 L Hgb (12.0 - 16.0 G/DL) 7.7 L Hct (37 - 47 %) 23.8 L MCV (81.0 - 99.0 FL) 90.2 MCH (27.0 - 31.0 PG) 29.3 MCHC (33.0 - 37.0 G/DL) 32.5 L RDW (11.5 - 14.5 %) 17.9 H Plt Count (130 - 400 /CUMM) 45 L MPV (7.4 - 10.4 FL) 10.5 H Gran % (42.2 - 75.2 %) 92.4 H Lymphocytes % (20.5 - 51.1 %) 7.2 L Monocytes % (1.7 - 9.3 %) 0.3 L Eosinophils % (0 - 5 %) 0.1 Basophils % (0.0 - 2.0 %) 0 Absolute Granulocytes (1.4 - 6.5 /CUMM) 2.6 Absolute Lymphocytes (1.2 - 3.4 /CUMM) 0.2 L Absolute Monocytes (0.10 - 0.60 /CUMM) 0 L Absolute Eosinophils (0.0 - 0.7 /CUMM) 0 Absolute Basophils (0.0 - 0.2 /CUMM) 0
--- NOTE | 2017-06-10 07:38 | PN- Cardiology ---
Subjective Subjective: Patient is awake, intubated, responds to verbal stimuli Objective Vital Signs and I&Os Vital Signs Date Time Temp Pulse Resp B/P B/P Pulse O2 O2 Flow FiO2 Mean Ox Delivery Rate 06/10 0655 40 06/10 0547 122 111/79 02 0410 40 06/10 0400 98 Ventilator 40% 06/10 0155 40 02/ 0001 121 101/70 02/ 0000 97 Ventilator 40% 06/10 0000 97.8 120 15 114/70 97 Ventilator 40% 06/09 2359 122 113/73 02 2227 40 02 2000 40 06/09 2000 97 Ventilator 40% 06/09 1645 40 02/ 1600 98.8 106 17 108/60 96 Ventilator 40% 06/09 1600 96 Ventilator 40% 06/09 1418 99.8 06/09 1415 40 02 1315 101.2 02/ 1300 101.2 06/09 1205 102/87 02/05 1202 40 02/ 1200 96 Ventilator 40% 06/09 1200 99.1 116 19 120/62 96 Ventilator 40% 06/09 0859 120/69 02/05 0817 40 02/ 0800 98.9 126 16 130/70 99 Ventilator 40% 06/09 0800 99 Ventilator 40% Intake & Output 06/10 0800 02/06 0000 02/05 1600 / 0800 06/09 0000 06/08 1600 Intake Total 1191 1080 1400 985 637 0354 Output Total 600 810 600 780 460 550 Balance 591 270 800 140 460 500 Intake, Blood 550 Product Intake, IV 100 110 260 100 100 130 Intake, Oral 0 0 Intake, Tube 486 430 320 520 520 520 Feeding Intake, Tube 605 540 270 300 300 400 Irrigant Number 0 1 1 Bowel Movements Output, Urine 600 810 600 780 460 550 Patient 287 lb 286 lb Weight Weight Bed scale Measurement Method Physical Exam: No acute distress on ventilator HEENT-PERRLA No acute distress Neck-unable to assess JVP, no bruits Lungs-scattered bilateral rhonchi Heart-S1S2 irregular, no murmur, rate 110 bpm Abdomen-soft, obese, not tender, BS+, no organomegaly Extr-dermatitis, trace edema, trace legs edema diminished distal pulses Neuro-non focal Current Medications: Current Medications Sig/Ric Start time Last Medication Dose Route Stop Time Status Admin Acetaminophen 1,000 MG .STK-MED ONE 06/09 1329 DC IV 06/09 1330 Acetaminophen 650 MG Q6P PRN 05/19 0300 AC PO Acetaminophen 1,000 MG Q6P PRN 05/19 0300 AC 06/09 IV 1315 Acetylcysteine 4 ML BID 06/06 2200 AC 06/09 INH 2124 Albumin Human 25 GM Q8H 05/24 0822 AC 06/10 IV 0001 Albuterol Sulfate 3 ML EVERY 4 HRS/AWAKE 05/30 0800 AC 06/09 INH 2123 Amiodarone HCl 200 MG DAILY 06/04 1000 AC 06/09 PO 0859 Artificial Tears 2 GTT 4 TIMES/DAY PRN 05/30 0745 AC 06/06 OPH 1557 Ascorbic Acid 500 MG DAILY 05/29 1000 AC 06/09 PO 0859 Ciprofloxacin 500 MG 0600,1800 06/07 0600 AC 06/10 PO 06/11 0559 0547 Diltiazem HCl 60 MG Q6 06/02 1800 AC 06/10 PO 0547 Diphenhydramine HCl 50 MG ONCE ONE 06/09 829 DC 06/09 IV 06/09 0831 0858 Docusate Sodium 100 MG DAILY AC 05/23 0820 AC 06/10 PO 0549 Furosemide 40 MG 1330 06/09 1330 DC 06/09 IV 06/09 1331 1315 Glycerin 2 SPRAY Q2P PRN 05/27 0800 AC PO Glycerin/Mineral Oil 1 PEDRITO TID PRN 05/24 1100 AC 06/06 TOP 1557 Insulin Aspart 0 Q4H 05/21 1800 AC 06/10 SC 0546 Insulin Detemir 14 UNITS BID 06/04 1000 AC 06/09 SC 2208 Lorazepam 1 MG DAILY 06/08 1000 AC 06/09 PO 0901 Lorazepam 2 MG AT BEDTIME 06/07 2200 AC 06/09 PO 2207 Methylprednisolone 100 MG ONCE ONE 06/09 0830 DC 06/09 IV 06/09 0831 0858 Metoprolol Tartrate 100 MG BID 05/30 1000 AC 06/09 PO 2359 Multivitamins 1 TAB DAILY 05/29 1000 AC 06/09 PO 0859 Pantoprazole Sodium 40 MG BID 06/03 1000 AC 06/09 IV 2208 Polyethylene Glycol 17 GM DAILY 05/23 1000 AC 06/06 PO 1052 Potassium Chloride 40 MEQ DAILY 06/05 1000 AC 06/08 PO 0914 Prednisone 80 MG DAILY 06/02 1000 AC 06/08 PO 0914 Results Last 48 Hrs of Labs/Mics: Laboratory Tests 06/10/17 0645: pH 7.44, pCO2 35, pO2 77 L, HCO3 23, ABG O2 Sat (Measured) 94.0 L, Carboxyhemoglobin 1.0 L, O2 Concentration % .4, Respiration Rate 12, O2 Delivery Method VENT, Vent Mode AC, Expiratory Pressure 5, Tidal Volume 480, Phlebotomy Draw Site LEFT RADIAL 06/10/17 0420: Anion Gap 18 H, Estimated GFR 43 L, Glucose 304 H, Calcium 9.1, Phosphorus 4.9 H, Magnesium 2.4 H, Total Bilirubin 1.0, AST 25, ALT 41, Albumin 3.8, PT 14.2 H, INR 1.36 H, APTT 34, Fibrinogen Activity 132 L, CBC w Diff NO MAN DIFF REQ, RBC 2.66 L, MCV 90.2, MCH 29.4, MCHC 32.5 L, RDW 18.1 H, MPV 10.0, Gran % 90.4 H, Lymphocytes % 7.3 L, Monocytes % 2.3, Eosinophils % 0, Basophils % 0, Absolute Granulocytes 2.6, Absolute Lymphocytes 0.2 L, Absolute Monocytes 0.1, Absolute Eosinophils 0, Absolute Basophils 0 06/09/17 1700: CBC w Diff NO MAN DIFF REQ, RBC 2.64 L, MCV 90.2, MCH 29.3, MCHC 32.5 L, RDW 17.9 H, MPV 10.5 H, Gran % 92.4 H, Lymphocytes % 7.2 L, Monocytes % 0.3 L, Eosinophils % 0.1, Basophils % 0, Absolute Granulocytes 2.6, Absolute Lymphocytes 0.2 L, Absolute Monocytes 0 L, Absolute Eosinophils 0, Absolute Basophils 0 06/09/17 0525: Anion Gap 17 H, Estimated GFR 43 L, Glucose 161 H, Calcium 9.2, Phosphorus 3.5, Magnesium 2.3, Total Bilirubin 0.7, AST 20, ALT 33, Albumin 3.7, CBC w Diff MAN DIFF ORDERED, RBC 2.40 L, MCV 90.8, MCH 29.3, MCHC 32.3 L, RDW 18.3 H, MPV 10.1, Gran % 91.7 H, Lymphocytes % 6.3 L, Monocytes % 1.7, Eosinophils % 0.1, Basophils % 0.2, Absolute Granulocytes 2.6, Absolute Lymphocytes 0.2 L, Absolute Monocytes 0 L, Absolute Eosinophils 0, Absolute Basophils 0, Platelet Estimate DECREASED, Hypochromic-Microcytic 2+, Poikilocytosis 1+, Ovalocytes 1+ Assessment/Plan Assessment/Plan 1. Acute hypoxic respiratory failure secondary to pneumonia, possible HFpEF with bilateral pleural effusions 2. atrial fibrillation, on oral cardizem, amiodarone, metoprolol, rate acceptable 3. GARCÍA-BUN keeps increasing (?due to tube feeding, ? intravasclar volume depletion), creatinine remains stable 4.Pancytopenia, s/p PRBC and platelets, lasix given prior to transfusion 5. Hypernatremia Plan: continue off diuretics daily weights continue Amiodaroine, cardizem and metoprolol CT scan of the chest without contrast-if significant pleural effusion, thoracenthesis may help to improve pulmonary status with higher chance for extubation. Continue telemetry? Yes
--- NOTE | 2017-06-10 07:48 | PN- Resident CRCU ---
Jaron RAMOS,[facility] 06/10/17 0748: Subjective HPI/CRCU Issues: Atrial Fibrilliation Thrombocytopenia Acute Hypoxic Respiratory Failure Anemia 24 Hour Events: She spiked a fever yesterday during the day 101.4 rectally. She did receive transfusion of pRBC at the time. No acute events overnight. Hematology recommends another unit of Plt transfusion today. Current vent settings: AC mode, Vt 480, RR 12, PIP 32, PEEP 5 In the last 24 hours: Input-3671 mL, output 2010 mL Objective Vital Signs & I&O Last 8 Hrs of Vitals and I&O: . Exam General Appearance: awake, anxious, intubated, mild distress Head: atraumatic, normal appearance Respiratory: chest non-tender, wheezing Cardiovascular: tachycardia, irregularly irregular Gastrointestinal: soft, non-tender Extremities: edema of right upper and lower extremity Cranial Nerves: normal hearing Skin: small ulcer on left foot. Skin Temp/Moisture Exam: Warm/Dry Sepsis Skin Exam (color): Normal for Ethnicity Weaning Parameters NIF: 23 Minute Volume: 9.08 Resp rate: 16 Vt: 565 Heart Rate: 120 Weaning Schedule Start Time: 15 Minute Volume: 12.5 Resp Rate: 42 Vt: 285 Heart Rate: 125 End Time: 0922 Minute Volume: 10.5 Resp Rate: 40 Vt: 316 Heart Rate: 144 Current Medications: Current Medications Sig/Ric Start time Last Medication Dose Route Stop Time Status Admin Acetaminophen 650 MG Q6P PRN 05/19 0300 AC PO Acetaminophen 1,000 MG Q6P PRN 05/19 0300 AC 06/09 IV 1315 Acetylcysteine 4 ML BID 06/06 2200 AC 06/10 INH 0826 Albumin Human 25 GM Q8H 05/24 0822 AC 06/10 IV 0806 Albuterol Sulfate 3 ML EVERY 4 HRS/AWAKE 05/30 0800 AC 06/10 INH 1205 Amiodarone HCl 200 MG DAILY 06/04 1000 AC 06/10 PO 0939 Artificial Tears 2 GTT 4 TIMES/DAY PRN 05/30 0745 AC 06/06 OPH 1557 Ascorbic Acid 500 MG DAILY 05/29 1000 AC 06/10 PO 0939 Ciprofloxacin 500 MG 0600,1800 06/07 0600 AC 06/10 PO 06/11 0559 0547 Dexamethasone 40 MG DAILY 06/10 1000 CAN IV Dexamethasone 40 MG DAILY 06/10 1000 AC 06/10 Sodium Chloride 50 ML IV 1023 Diltiazem HCl 60 MG Q6 06/02 1800 AC 06/10 PO 1138 Docusate Sodium 100 MG DAILY AC 05/23 0820 AC 06/10 PO 0549 Glycerin 2 SPRAY Q2P PRN 05/27 0800 AC PO Glycerin/Mineral Oil 1 PEDRITO TID PRN 05/24 1100 AC 06/06 TOP 1557 Insulin Aspart 0 Q4H 05/21 1800 AC 06/10 SC 1406 Insulin Detemir 20 UNITS BID 06/10 1000 AC 06/10 SC 0940 Insulin Detemir 14 UNITS BID 06/04 1000 DC 06/09 SC 2208 Lorazepam 1 MG DAILY 06/08 1000 AC 06/10 PO 0939 Lorazepam 2 MG AT BEDTIME 06/07 2200 AC 06/09 PO 2207 Metoprolol Tartrate 100 MG BID 05/30 1000 AC 06/10 PO 0939 Multivitamins 1 TAB DAILY 05/29 1000 AC 06/10 PO 0939 Pantoprazole Sodium 40 MG BID 06/03 1000 AC 06/10 IV 0939 Polyethylene Glycol 17 GM DAILY 05/23 1000 AC 06/10 PO 0939 Potassium Chloride 40 MEQ DAILY 06/05 1000 AC 06/08 PO 0914 Prednisone 80 MG DAILY 06/02 1000 DC 06/08 PO 0914 Impression/Plan Impression/Problem List Impression: 86 year old woman with past medical history of hypertension, hyperlipidemia, [place] s/p PCI with stent, diabetes mellitus, and restless leg syndrome, history of atrial fibrillation with anticoagulation on hold due to severe thrombocytopenia was sent in from extended care facility for hypoxia, leukocytosis and productive cough. She was admitted on telemetry floor and transfered to ICU after patient desaturated became unresponsive. Assessment and Plan: Acute hypoxic respiratory failure likely secondary to HCAP: * Continue Ciprofloxacin 500mg BID. * Her CXR shows persistent pulmonary vascular congestion and bilateral pleural effusions. She appears to have chronic left lower lobe collapse. Will obtain CT chest/abd to assess if effusions are large enough to be tapped. * ID recs appreciated. * She has a rising BUN, which is concerning for a internal GI bleed. Her last stools were guiac positive. However, per GI the rise in BUN is not consistent with acute active bleeding. * Goals of care reviewed with family. They're still unsure. Atrial Fibrilliation: * Will continue metoprolol 100mg BID. * Continue oral Amiodarone at 200mg QD. * Continue Cardizem 60mg q6. Can be decreased to 30mg if not tolerated by blood pressure. * Discontinued Elliquis 2.5mg BID as Plt count is falling. * Echo - Normal left ventricular ejection fraction visually estimated at > 60% . Immune Thrombocytopenia: * Her platelets continue to decline. Likely due to her reinfection. * Switched to dexamethasone 40mg IV daily. * Will transfuse another unit of Plt today and repeat CBC. * s/p 3 unit transfusion of platelets today (05/22, 06/09, 06/10). 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 * Will continue to follow DIC panel. * Can transfuse Plt or IVIG if Plt <30K and actively bleeding. GARCÍA on CKD: /resolved * Cr 1.2 today. * Was likely contrast induced nephropathy initially. * Nephro recs appreciated. * Strict I&Os. Diabetes Mellitus: * Continue tube feeds with Glucerna 1.2. * Levemir 20mg BID * Insulin SS. Adjusted per Endo's recommendations. Lower Extremity Skin Changes: /resolved * Was evaluated by vascular surgery. Recommend no surgical intervention at this time. * Small ulcer on left/right foot base. Wound care notes appreciated. History of restless leg syndrome: * Sinemet was recently discontinued * Lyrica on hold currently. * Lubriderm to affected skin. DVT Prophylaxis: ALPS Code: Full Problem List: 1. A-fib Pain Ratin Tomorrow's Labs & Rationales: CBC, ICU bundle, DIC panel Plan DVT/Prophylaxis: Jordi Trujillo MD 06/10/17 1157: Attending MD Review Statement Attending Sign Off Attending Cosign Statement: I have: examined this patient, reviewed avalbl EMR data, personally reviewd images, discussd w/resident/PA/HAIR DRYER, discussed mgmt plan w/ida, discussed mgmt plan w/CM, discussed mgmt plan w/pt, agreed w/resident/PA/HAIR DRYER, amended to note. Other Findings: Jordi Lopez M.D. have examined this patient, reviewed available EMR data, personally reviewed images, discussed with resident/PA/HAIR DRYER, discussed management plan with housestaff and nursing staff, discussed managment plan all of healthcare providers, discussed management plan with patient and/or family, agreed with resident/PA/HAIR DRYER. The past history and parts of the chart have been autopopulated. Impression 86 year old woman resolved septic shock a.fib RVR acute hypoxemic respiratory failure GARCÍA improved anemia/throbocytopenia Plan -ct chest, can check abd/pelvis as well, for prognostication, may consider extubation if no progress -cont mechanical ventilation -ciprofloxacin -cardiology, ID f/u -f/u hematology recommendations, stress steroids can be tapered per heme -endocrinology appreciated -nephrology consultation appreciated -family is unsure of goals of care and unsure if will pursue trach -free water flushes for hypernatremia DVT prophylaxis at all times TTS 35 min TTS 35 min
[2017-06-10 08:00] VITALS: BP 118/74
--- NOTE | 2017-06-10 08:51 | PN- Hematology ---
Subjective Subjective: She remains intubated. She is awake and alert. She denies any pain. She was transfused with 1 unit of platelets yesterday along with a unit of blood. She initially responded with her platelet count. She does have heme-positive stool. Review of Systems: Limited due to intubated. She denies pain. Objective Vital Signs and I&Os Vital Signs Date Time Temp Pulse Resp B/P B/P Pulse O2 O2 Flow FiO2 Mean Ox Delivery Rate 06/10 0655 40 06/10 0547 122 111/79 06/10 0410 40 06/10 0400 98 Ventilator 40% 06/10 0155 40 06/10 0001 121 101/70 02/ 0000 97 Ventilator 40% 06/10 0000 97.8 120 15 114/70 97 Ventilator 40% 06/09 2359 122 113/73 02/05 2227 40 06/09 2000 40 06/09 2000 97 Ventilator 40% 06/09 1645 40 / 1600 98.8 106 17 108/60 96 Ventilator 40% 06/09 1600 96 Ventilator 40% 06/09 1418 99.8 / 1415 40 02/05 1315 101.2 02/05 1300 101.2 /05 1205 102/87 02/05 1202 40 02/05 1200 96 Ventilator 40% /05 1200 99.1 116 19 120/62 96 Ventilator 40% /05 0859 120/69 Intake & Output 06/10 1600 /06 0800 02/06 0000 02/05 1600 / 0800 02/05 0000 Intake Total 1191 1080 1400 920 920 Output Total 600 810 600 780 460 Balance 591 270 800 140 460 Intake, Blood 550 Product Intake, IV 100 110 260 100 100 Intake, Oral 0 Intake, Tube 486 430 320 520 520 Feeding Intake, Tube 605 540 270 300 300 Irrigant Number 0 1 Bowel Movements Output, Urine 600 810 600 780 460 Patient 130.209 kg 129.727 kg Weight Weight Bed scale Measurement Method Physical Exam: General Appearance: arousable, comfortable, intubated Ears, Nose, Throat: ET tube in place Respiratory: chest non-tender, rhonchi, decrease BS on left,FiO2 45% Cardiovascular: tachycardia, irregularly irregular Abdomen: normal bowel sounds, soft, non-tender Extremities: Right upper extremity 1+ edema, ecchymoses in upper extremities, hyperpigmented lower extremities, RUE with PICC line Skin: dry Neurologic/Psychiatric: arousable, follows command, intubated Current Medications: Current Medications Sig/Ric Start time Last Medication Dose Route Stop Time Status Admin Acetaminophen 1,000 MG .STK-MED ONE 06/09 1329 DC IV 06/09 1330 Acetaminophen 650 MG Q6P PRN 05/19 0300 AC PO Acetaminophen 1,000 MG Q6P PRN 05/19 0300 AC 06/09 IV 1315 Acetylcysteine 4 ML BID 06/06 2200 AC 06/10 INH 0826 Albumin Human 25 GM Q8H 05/24 0822 AC 06/10 IV 0806 Albuterol Sulfate 3 ML EVERY 4 HRS/AWAKE 05/30 0800 AC 06/10 INH 0826 Amiodarone HCl 200 MG DAILY 06/04 1000 AC 06/09 PO 0859 Artificial Tears 2 GTT 4 TIMES/DAY PRN 05/30 0745 AC 06/06 OPH 1557 Ascorbic Acid 500 MG DAILY 05/29 1000 AC 06/09 PO 0859 Ciprofloxacin 500 MG 0600,1800 06/07 0600 AC 06/10 PO 06/11 0559 0547 Diltiazem HCl 60 MG Q6 06/02 1800 AC 06/10 PO 0547 Docusate Sodium 100 MG DAILY AC 05/23 0820 AC 06/10 PO 0549 Furosemide 40 MG 1330 06/09 1330 DC 06/09 IV 06/09 1331 1315 Glycerin 2 SPRAY Q2P PRN 05/27 0800 AC PO Glycerin/Mineral Oil 1 PEDRITO TID PRN 05/24 1100 AC 06/06 TOP 1557 Insulin Aspart 0 Q4H 05/21 1800 AC 06/10 SC 0546 Insulin Detemir 14 UNITS BID 06/04 1000 AC 06/09 SC 2208 Lorazepam 1 MG DAILY 06/08 1000 AC 06/09 PO 0901 Lorazepam 2 MG AT BEDTIME 06/07 2200 AC 06/09 PO 2207 Metoprolol Tartrate 100 MG BID 05/30 1000 AC 06/09 PO 2359 Multivitamins 1 TAB DAILY 05/29 1000 AC 06/09 PO 0859 Pantoprazole Sodium 40 MG BID 06/03 1000 AC 06/09 IV 2208 Polyethylene Glycol 17 GM DAILY 05/23 1000 AC 06/06 PO 1052 Potassium Chloride 40 MEQ DAILY 06/05 1000 AC 06/08 PO 0914 Prednisone 80 MG DAILY 06/02 1000 AC 06/08 PO 0914 Results Last 24 Hours of Lab Results: Laboratory Tests 06/10 06/10 0645 0420 Blood Gas pH (7.35 - 7.45 PH) 7.44 pCO2 (35 - 45 TORR) 35 pO2 (80 - 100 TORR) 77 L HCO3 (21 - 28 MEQ/L) 23 ABG O2 Sat (Measured) (>96.0 %) 94.0 L Carboxyhemoglobin (1.5 - 5.0 %) 1.0 L O2 Concentration % .4 Respiration Rate (BPM) 12 O2 Delivery Method VENT Vent Mode AC Expiratory Pressure (CMH2O/P) 5 Tidal Volume (CC) 480 Chemistry Sodium (137 - 145 mmol/L) 146 H Potassium (3.5 - 5.1 mmol/L) 4.8 Chloride (98 - 107 mmol/L) 102 Carbon Dioxide (22 - 30 mmol/L) 26 Anion Gap (5 - 16) 18 H BUN (7 - 17 mg/dL) 118 *H Creatinine (0.5 - 1.0 mg/dL) 1.2 H Estimated GFR (>60 ml/min) 43 L Glucose (65 - 99 mg/dL) 304 H Calcium (8.4 - 10.2 mg/dL) 9.1 Phosphorus (2.5 - 4.5 mg/dL) 4.9 H Magnesium (1.6 - 2.3 mg/dL) 2.4 H Total Bilirubin (0.2 - 1.3 mg/dL) 1.0 AST (14 - 36 U/L) 25 ALT (9 - 52 U/L) 41 Albumin (3.5 - 5.0 g/dL) 3.8 Coagulation PT (9.4 - 12.5 SEC) 14.2 H INR (0.90 - 1.19) 1.36 H APTT (25 - 37 SEC) 34 Fibrinogen Activity (200 - 393 MG/DL) 132 L Hematology CBC w Diff NO MAN DIFF REQ WBC (4.8 - 10.8 /CUMM) 2.9 L RBC (4.20 - 5.40 /CUMM) 2.66 L Hgb (12.0 - 16.0 G/DL) 7.8 L Hct (37 - 47 %) 24.0 L MCV (81.0 - 99.0 FL) 90.2 MCH (27.0 - 31.0 PG) 29.4 MCHC (33.0 - 37.0 G/DL) 32.5 L RDW (11.5 - 14.5 %) 18.1 H Plt Count (130 - 400 /CUMM) 35 L MPV (7.4 - 10.4 FL) 10.0 Gran % (42.2 - 75.2 %) 90.4 H Lymphocytes % (20.5 - 51.1 %) 7.3 L Monocytes % (1.7 - 9.3 %) 2.3 Eosinophils % (0 - 5 %) 0 Basophils % (0.0 - 2.0 %) 0 Absolute Granulocytes (1.4 - 6.5 /CUMM) 2.6 Absolute Lymphocytes (1.2 - 3.4 /CUMM) 0.2 L Absolute Monocytes (0.10 - 0.60 /CUMM) 0.1 Absolute Eosinophils (0.0 - 0.7 /CUMM) 0 Absolute Basophils (0.0 - 0.2 /CUMM) 0 Miscellaneous Phlebotomy Draw Site LEFT RADIAL 06/09 1700 Hematology CBC w Diff NO MAN DIFF REQ WBC (4.8 - 10.8 /CUMM) 2.8 L RBC (4.20 - 5.40 /CUMM) 2.64 L Hgb (12.0 - 16.0 G/DL) 7.7 L Hct (37 - 47 %) 23.8 L MCV (81.0 - 99.0 FL) 90.2 MCH (27.0 - 31.0 PG) 29.3 MCHC (33.0 - 37.0 G/DL) 32.5 L RDW (11.5 - 14.5 %) 17.9 H Plt Count (130 - 400 /CUMM) 45 L MPV (7.4 - 10.4 FL) 10.5 H Gran % (42.2 - 75.2 %) 92.4 H Lymphocytes % (20.5 - 51.1 %) 7.2 L Monocytes % (1.7 - 9.3 %) 0.3 L Eosinophils % (0 - 5 %) 0.1 Basophils % (0.0 - 2.0 %) 0 Absolute Granulocytes (1.4 - 6.5 /CUMM) 2.6 Absolute Lymphocytes (1.2 - 3.4 /CUMM) 0.2 L Absolute Monocytes (0.10 - 0.60 /CUMM) 0 L Absolute Eosinophils (0.0 - 0.7 /CUMM) 0 Absolute Basophils (0.0 - 0.2 /CUMM) 0 Assessment/Plan Assessment/Recommendations: Ms. 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 She has been having new cough a few days ago. CTA demonstrated moderate atelectasis/consolidation in the left upper and lower lobes. There was mild right base atelectasis and moderate left and [id number] right pleural effusions. She was briefly in shock and required Levophed. She was improving on Oxacillin. She was on Zosyn and is now on ceftazidime. She remains in atrial fibrillation with RVR. She is on metoprolol, amiodarone, and diltiazem. She remains intubated and on FiO2 of 45%. Her platelet count initially responded after transfusion yesterday. Her platelet count is dropped back to 35,000 today. This is concerning for peripheral destructive process. Her fibrinogen has also decreased. This concerning for worsening DIC. Hemoglobin has improved. Her increasing BUN is concerning for bleeding in addition to the heme-positive stool. Given the platelet count being low, she should have a repeat transfusion of platelets. A trial of increasing steroid to dexamethasone 40 mg IV may be done. She will be monitor closely for worsening DIC. Leukopenia is stable. Pancytopenia: -Trial of dexamethasone 40 mg daily -Continue to monitor DIC: fibrinogen and INR -Continue to hold apixaban -Transfuse with 1 unit of platelet -Check platelet count 1 hour after tranfusion -Check for GI bleeding Acute hypoxic respiratory failure: -Management as per primary ICU team Atrial fibrillation with RVR: -Management as per cardiology/ICU -medications: amiodarone, diltiazem, metoprolol Please call [phone] with any questions or concerns. Problem List: 1. Pancytopenia 2. Pneumonia 3. Atrial fibrillation with RVR
--- NOTE | 2017-06-10 11:42 | PN- Infect Dx ---
Subjective Subjective: MAXIMUM TEMPERATURE 101.2. She does not offer any complaints. Objective Last 24 Hrs of Vital Signs/I&O Vital Signs Date Time Temp Pulse Resp B/P B/P Pulse O2 O2 Flow FiO2 Mean Ox Delivery Rate 06/10 0939 127 108/60 / 0939 108/60 / 0830 40 / 0800 97.6 95 19 118/74 95 Ventilator 40% 06/10 0655 40 06/10 0547 122 111/79 02/ 0410 40 06/10 0400 98 Ventilator 40% 06/10 0155 40 02/ 0001 121 101/70 02/06 0000 97 Ventilator 40% 02/ 0000 97.8 120 15 114/70 97 Ventilator 40% 06/09 2359 122 113/73 02/05 2227 40 06/09 2000 40 06/09 2000 97 Ventilator 40% 02/05 1645 40 02/ 1600 98.8 106 17 108/60 96 Ventilator 40% / 1600 96 Ventilator 40% / 1418 99.8 02/ 1415 40 02/05 1315 101.2 02/05 1300 101.2 02/05 1205 102/87 02/05 1202 40 02/05 1200 96 Ventilator 40% 02/ 1200 99.1 116 19 120/62 96 Ventilator 40% Intake & Output 06/10 1600 02/06 0800 02/ 0000 Intake Total 1191 1080 Output Total 600 810 Balance 591 270 Intake, IV 100 110 Intake, Oral 0 Intake, Tube 486 430 Feeding Intake, Tube 605 540 Irrigant Number 0 Bowel Movements Output, Urine 600 810 Patient 287 lb Weight Weight Bed scale Measurement Method Physical Exam Other Physical Findings: She appears comfortable on the ventilator in no acute distress Lungs are clear Heart regular rhythm with no murmur Abdomen is soft, nontender with positive bowel sounds Extremities chronic venous stasis changes both lower extremities; PICC in the right upper extremity with no inflammation at the site Faust catheter remains in place Results Last 24 Hours of Lab Results: Laboratory Tests 06/10 06/10 0645 0420 Blood Gas pH (7.35 - 7.45 PH) 7.44 pCO2 (35 - 45 TORR) 35 pO2 (80 - 100 TORR) 77 L HCO3 (21 - 28 MEQ/L) 23 ABG O2 Sat (Measured) (>96.0 %) 94.0 L Carboxyhemoglobin (1.5 - 5.0 %) 1.0 L O2 Concentration % .4 Respiration Rate (BPM) 12 O2 Delivery Method VENT Vent Mode AC Expiratory Pressure (CMH2O/P) 5 Tidal Volume (CC) 480 Chemistry Sodium (137 - 145 mmol/L) 146 H Potassium (3.5 - 5.1 mmol/L) 4.8 Chloride (98 - 107 mmol/L) 102 Carbon Dioxide (22 - 30 mmol/L) 26 Anion Gap (5 - 16) 18 H BUN (7 - 17 mg/dL) 118 *H Creatinine (0.5 - 1.0 mg/dL) 1.2 H Estimated GFR (>60 ml/min) 43 L Glucose (65 - 99 mg/dL) 304 H Calcium (8.4 - 10.2 mg/dL) 9.1 Phosphorus (2.5 - 4.5 mg/dL) 4.9 H Magnesium (1.6 - 2.3 mg/dL) 2.4 H Total Bilirubin (0.2 - 1.3 mg/dL) 1.0 AST (14 - 36 U/L) 25 ALT (9 - 52 U/L) 41 Albumin (3.5 - 5.0 g/dL) 3.8 Coagulation PT (9.4 - 12.5 SEC) 14.2 H INR (0.90 - 1.19) 1.36 H APTT (25 - 37 SEC) 34 Fibrinogen Activity (200 - 393 MG/DL) 132 L Hematology CBC w Diff NO MAN DIFF REQ WBC (4.8 - 10.8 /CUMM) 2.9 L RBC (4.20 - 5.40 /CUMM) 2.66 L Hgb (12.0 - 16.0 G/DL) 7.8 L Hct (37 - 47 %) 24.0 L MCV (81.0 - 99.0 FL) 90.2 MCH (27.0 - 31.0 PG) 29.4 MCHC (33.0 - 37.0 G/DL) 32.5 L RDW (11.5 - 14.5 %) 18.1 H Plt Count (130 - 400 /CUMM) 35 L MPV (7.4 - 10.4 FL) 10.0 Gran % (42.2 - 75.2 %) 90.4 H Lymphocytes % (20.5 - 51.1 %) 7.3 L Monocytes % (1.7 - 9.3 %) 2.3 Eosinophils % (0 - 5 %) 0 Basophils % (0.0 - 2.0 %) 0 Absolute Granulocytes (1.4 - 6.5 /CUMM) 2.6 Absolute Lymphocytes (1.2 - 3.4 /CUMM) 0.2 L Absolute Monocytes (0.10 - 0.60 /CUMM) 0.1 Absolute Eosinophils (0.0 - 0.7 /CUMM) 0 Absolute Basophils (0.0 - 0.2 /CUMM) 0 Miscellaneous Phlebotomy Draw Site LEFT RADIAL 06/09 1700 Hematology CBC w Diff NO MAN DIFF REQ WBC (4.8 - 10.8 /CUMM) 2.8 L RBC (4.20 - 5.40 /CUMM) 2.64 L Hgb (12.0 - 16.0 G/DL) 7.7 L Hct (37 - 47 %) 23.8 L MCV (81.0 - 99.0 FL) 90.2 MCH (27.0 - 31.0 PG) 29.3 MCHC (33.0 - 37.0 G/DL) 32.5 L RDW (11.5 - 14.5 %) 17.9 H Plt Count (130 - 400 /CUMM) 45 L MPV (7.4 - 10.4 FL) 10.5 H Gran % (42.2 - 75.2 %) 92.4 H Lymphocytes % (20.5 - 51.1 %) 7.2 L Monocytes % (1.7 - 9.3 %) 0.3 L Eosinophils % (0 - 5 %) 0.1 Basophils % (0.0 - 2.0 %) 0 Absolute Granulocytes (1.4 - 6.5 /CUMM) 2.6 Absolute Lymphocytes (1.2 - 3.4 /CUMM) 0.2 L Absolute Monocytes (0.10 - 0.60 /CUMM) 0 L Absolute Eosinophils (0.0 - 0.7 /CUMM) 0 Absolute Basophils (0.0 - 0.2 /CUMM) 0 Last 24 Hours of Silvano Results: No new cultures Recent Imaging Studies: Chest x-ray June 10, personally reviewed, reveals persistent pulmonary edema and bilateral pleural effusions with bibasilar densities Assessment/Plan Impression: Fever spike yesterday, possibly secondary to the platelet transfusion, with no new source of infection identified, though she was not cultured. She is to begin on Decadron today for ITP, with worsening pancytopenia, in the setting of a possible ongoing pulmonary infection secondary to Pseudomonas, for which she is on Ciprofloxacin, Day 4 of treatment. Her increasing BUN may be secondary to steroids or to an upper GI bleed, with guaiac-positive stools reported. Suggestion: 1. Repeat blood, sputum and urine cultures if respikes 2. Discontinue all nonessential medications 3. Further management of her fluid status per Cardiology 4. Further management of her steroids per Hematology 5. Continue Ciprofloxacin
[2017-06-10 11:59] VITALS: BP 124/80
[2017-06-10 15:52] LABS: ABSOLUTE BASOPHIL COUNT 0 /CUMM (0.0-0.2); ABSOLUTE EOSINOPHIL COUNT 0 /CUMM (0.0-0.7); ABSOLUTE LYMPH COUNT 0.1 /CUMM (1.2-3.4); ABSOLUTE MONOCYTE COUNT 0 /CUMM (0.10-0.60); BASOPHIL % 0 % (0.0-2.0); EOSINOPHIL % 0.1 % (0-5); HEMATOCRIT 23.9 % (37-47); MEAN CORPUSCULAR HGB 29.5 PG (27.0-31.0); MEAN CORPUSCULAR HGB CONC 32.9 G/DL (33.0-37.0); MEAN CORPUSCULAR VOLUME 89.5 FL (81.0-99.0); MEAN PLATELET VOLUME 8.9 FL (7.4-10.4); RBC DISTRIBUTION WIDTH 17.6 % (11.5-14.5); RED BLOOD CELL CT 2.67 /CUMM (4.20-5.40); WHITE BLOOD CELL COUNT 4.2 /CUMM (4.8-10.8)
[2017-06-10 16:00] VITALS: BP 130/80
[2017-06-10 16:32] LABS: PLATELET COUNT 56 /CUMM (130-400)
[2017-06-10 16:33] LABS: GRANULOCYTE % 96.2 % (42.2-75.2)
--- NOTE | 2017-06-10 17:08 | Cons- Gastroenterology ---
General Information and HPI Consulting Request Date of Consult: 06/10/17 Requested By: Jordi Pyle MD Reason for Consult: 1. Hemoccult Positive Stool Source of Information: Electronic Medical Record Exam Limitations: unable to give history History of Present Illness: Patient is an 87-year-old female who is intubated and sedated. She is a past medical history significant for ITP and has been treated with steroids in the past. She was admitted on May 19 with a productive cough and a white blood cell count of 24,000. She is additional past medical history significant for hypertension, hyperlipidemia, [place] s/p PCI with stent, diabetes mellitus, and restless leg syndrome, atrial fibrillation not on anticoagulation due to severe thrombocytopenia. On admission patient became hypotensive,requiring pressors as well as inrubation and mechanical ventilation. Despite being extubated later she required re- intubation. During her hospital course she has had persistent thrombocytopenia/ pancytopenia. Further she has had a persistent elevation in her BUN. We are consulted for a hemoccult positive stool as well as an icrease in BUN from 108 to 118 in the setting of continued mechanical ventilation in a patient on IV steroids. She has had continued fevers and is being treated for pseudomonas pneumonia. Patient has had no overt GI blood loss. She has had no melena, hematemesis or bright red blood per rectum. She has had no decrease in H/H. Allergies/Medications Allergies: Coded Allergies: codeine (SOB 07/09/15) Home Med List: Apixaban (Eliquis) 2.5 MG TABLET 2.5 MG PO BID Atrial Fibrilliation Atorvastatin Calcium (Lipitor) 80 MG TABLET 1 TAB PO DAILY CHOLESTEROL ( Reported) Calcium Carbonate/Vitamin D3 (Caltrate 600 + D Tablet) 600 MG-800 TABLET 1 TAB PO DAILY SUPPLEMENT (Reported) Carbidopa/Levodopa (Carbidopa-Levo ER 50-200 Tab) 50 MG-200 MG TABLET.ER 1 TAB PO DAILY RESTLESS LEGS Cyanocobalamin (Vitamin B-12) 1,000 MCG TABLET 1 TAB PO DAILY VITAMIN SUPPORT (Reported) diltiaZEM HCl (Diltiazem 24HR Cd) 360 MG CAP.ER.24H 1 TAB PO DAILY Heart rate Duloxetine HCl 60 MG CAPSULE.DR 1 CAP PO DAILY PAIN (Reported) Ferrous Sulfate 325 MG (65 MG IRON) TABLET.DR 325 MG PO BID supplement Folic Acid 1 MG TABLET 1 MG PO DAILY supplement Furosemide 20 MG TABLET 1 TAB PO DAILY WATER RETENTION (Reported) Lorazepam 1 MG TABLET 2 TAB PO QPM ANXIETY (Reported) Lorazepam 1 MG TABLET 1 TAB PO DAILY ANXIETY (Reported) Magnesium Oxide 400 MG TABLET 1 TAB PO DAILY SUPPLEMENT (Reported) Metformin HCl 1,000 MG TABLET 1 TAB PO DAILY DIABETES (Reported) Metoprolol Tartrate 100 MG TABLET 2 TAB PO BID HEART Mirtazapine 15 MG TABLET 1 TAB PO QPM SLEEP (Reported) Omeprazole 20 MG CAPSULE.DR 40 MG PO DAILY AC STOMACH HEALTH Prednisone 50 MG TABLET 1 TAB PO DAILY Thrombocytopenia Pregabalin (Lyrica) 75 MG CAPSULE 150 MG PO AT BEDTIME RESTLESS LEGS Current Medications: Current Medications Sig/Ric Start time Last Medication Dose Route Stop Time Status Admin Acetaminophen 650 MG Q6P PRN 05/19 030 AC PO Acetaminophen 1,000 MG Q6P PRN 05/19 0300 AC 06/09 IV 1315 Acetylcysteine 4 ML BID 06/06 2200 AC 06/10 INH 0826 Albumin Human 25 GM Q8H 05/24 0822 AC 06/10 IV 1739 Albuterol Sulfate 3 ML EVERY 4 HRS/AWAKE 05/30 0800 AC 06/10 INH 1205 Amiodarone HCl 200 MG DAILY 06/04 1000 AC 06/10 PO 0939 Artificial Tears 2 GTT 4 TIMES/DAY PRN 05/30 0745 AC 06/06 OPH 1557 Ascorbic Acid 500 MG DAILY 05/29 1000 AC 06/10 PO 0939 Ciprofloxacin 500 MG 0600,1800 06/07 0600 AC 06/10 PO 06/11 0559 1738 Dexamethasone 40 MG DAILY 06/10 1000 CAN IV Dexamethasone 40 MG DAILY 06/10 1000 AC 06/10 Sodium Chloride 50 ML IV 1023 Diltiazem HCl 60 MG Q6 06/02 1800 AC 06/10 PO 1738 Docusate Sodium 100 MG DAILY AC 05/23 0820 AC 06/10 PO 0549 Glycerin 2 SPRAY Q2P PRN 05/27 0800 AC PO Glycerin/Mineral Oil 1 PEDRITO TID PRN 05/24 1100 AC 06/06 TOP 1557 Insulin Aspart 0 Q4H 05/21 1800 AC 06/10 SC 1406 Insulin Detemir 20 UNITS BID 06/10 1000 AC 06/10 SC 0940 Insulin Detemir 14 UNITS BID 06/04 1000 DC 06/09 SC 2208 Lorazepam 1 MG DAILY 06/08 1000 AC 06/10 PO 0939 Lorazepam 2 MG AT BEDTIME 06/070 AC 06/09 PO 2207 Metoprolol Tartrate 100 MG BID 05/30 1000 AC 06/10 PO 0939 Multivitamins 1 TAB DAILY 05/29 1000 AC 06/10 PO 0939 Pantoprazole Sodium 40 MG BID 06/03 1000 AC 06/10 IV 0939 Polyethylene Glycol 17 GM DAILY 05/23 1000 AC 06/10 PO 0939 Potassium Chloride 40 MEQ DAILY 06/05 1000 AC 06/08 PO 0914 Prednisone 80 MG DAILY 06/02 1000 DC 06/08 PO 0914 Past History Travel History Traveled to [facility] past 21 day No Medical History Neurological: restless leg syndrome, DIABETIC NEUROPATHY EENT: NONE Cardiovascular: hypertension, hyperlipidemia, myocardial infarction, CARDIAC STENTS Respiratory: NONE Gastrointestinal: constipation Hepatic: NONE Renal: NONE Musculoskeletal: falls, BILAT SHOULDER REPAIR LT KNEE REPAIR Psychiatric: anxiety Endocrine: diabetes Blood Disorders: thrombocytopenia Cancer(s): NONE CANDLE WRAPPER/Reproductive: NONE Other Medical Hx: restless leg syndrome Surgical History Surgical History: L KNEE BOTH SHOULDERS R GREAT TOE AMP BILATERAL SHOULDER SURGERY Family History Relations & Conditions If Any: Relation not specified for: *No pertinent family history Psychosocial History Where Do You Live? Extended Care Facility Services at Home: None Smoking Status: Former Smoker ETOH Use: occasional use Illicit Drug Use: denies illicit drug use Functional Ability ADLs Independent: dressing, eating, toileting, bathing. Ambulation: independent IADLs Independent: shopping, housework, finances, food prep, telephone, transportation , medication admin. Review of Systems Review of Systems: Unable to obtain Exam & Diagnostic Data Vital Signs and I&O Vital Signs Date Time Temp Pulse Resp B/P B/P Pulse O2 O2 Flow FiO2 Mean Ox Delivery Rate 06/10 1600 45 06/10 1357 50 06/10 1335 40 06/10 1200 95 Ventilator 40% 06/10 1159 97.2 99 23 124/80 96 Ventilator 40% 06/10 1138 104 124/80 06/10 0939 127 108/60 06/10 0939 108/60 06/10 0830 40 06/10 0800 97.6 95 19 118/74 95 Ventilator 40% 06/10 0800 96 Ventilator 40% 06/10 0655 40 06/10 0547 122 111/79 06/10 0410 40 06/10 0400 98 Ventilator 40% 06/10 0155 40 06/10 0001 121 101/70 06/10 0000 97 Ventilator 40% 06/10 0000 97.8 120 15 114/70 97 Ventilator 40% 06/09 2359 122 113/73 06/09 2227 40 06/09 1999 40 06/09 1999 97 Ventilator 40% Intake & Output 06/10 0400 06/09 04006/08 040 Intake Total 2460 1080 2320 920 1930 1020 Output Total 1824 527 6235 460 1240 650 Balance 1260 270 940 460 690 370 Intake, Blood 218 550 Product Intake, IV 295 110 360 100 230 100 Intake, Oral 0 0 Intake, Tube 892 430 778 432 2692 520 Feeding Intake, Tube 1055 540 570 300 660 400 Irrigant Number 1 1 1 1 Bowel Movements Output, Urine 9862 201 1748 460 1240 650 Patient 287 lb 286 lb 285 lb Weight Weight Bed scale Measurement Method Physical Exam General Appearance: sedated, intubated Head: atraumatic, normal appearance Eyes: Bilateral: normal appearance. Respiratory: normal breath sounds, lungs clear Cardiovascular: regular rate/rhythm Gastrointestinal: normal bowel sounds, soft, non-tender, no organomegaly Neurologic/Psych: Unable to assess Cranial Nerves: Unable to assess Results Pertinent Lab Results: Laboratory Tests 06/10 06/10 1500 0645 Blood Gas pH (7.35 - 7.45 PH) 7.44 pCO2 (35 - 45 TORR) 35 pO2 (80 - 100 TORR) 77 L HCO3 (21 - 28 MEQ/L) 23 ABG O2 Sat (Measured) (>96.0 %) 94.0 L Carboxyhemoglobin (1.5 - 5.0 %) 1.0 L O2 Concentration % .4 Respiration Rate (BPM) 12 O2 Delivery Method VENT Vent Mode AC Expiratory Pressure (CMH2O/P) 5 Tidal Volume (CC) 480 Hematology CBC w Diff NO MAN DIFF REQ WBC (4.8 - 10.8 /CUMM) 4.2 L RBC (4.20 - 5.40 /CUMM) 2.67 L Hgb (12.0 - 16.0 G/DL) 7.9 L Hct (37 - 47 %) 23.9 L MCV (81.0 - 99.0 FL) 89.5 MCH (27.0 - 31.0 PG) 29.5 MCHC (33.0 - 37.0 G/DL) 32.9 L RDW (11.5 - 14.5 %) 17.6 H Plt Count (130 - 400 /CUMM) 56 L MPV (7.4 - 10.4 FL) 8.9 Gran % (42.2 - 75.2 %) 96.2 H Lymphocytes % (20.5 - 51.1 %) 3.1 L Monocytes % (1.7 - 9.3 %) 0.6 L Eosinophils % (0 - 5 %) 0.1 Basophils % (0.0 - 2.0 %) 0 Absolute Granulocytes (1.4 - 6.5 /CUMM) 4.0 Absolute Lymphocytes (1.2 - 3.4 /CUMM) 0.1 L Absolute Monocytes (0.10 - 0.60 /CUMM) 0 L Absolute Eosinophils (0.0 - 0.7 /CUMM) 0 Absolute Basophils (0.0 - 0.2 /CUMM) 0 Miscellaneous Phlebotomy Draw Site LEFT RADIAL 06/10 06/09 0420 1700 Chemistry Sodium (137 - 145 mmol/L) 146 H Potassium (3.5 - 5.1 mmol/L) 4.8 Chloride (98 - 107 mmol/L) 102 Carbon Dioxide (22 - 30 mmol/L) 26 Anion Gap (5 - 16) 18 H BUN (7 - 17 mg/dL) 118 *H Creatinine (0.5 - 1.0 mg/dL) 1.2 H Estimated GFR (>60 ml/min) 43 L Glucose (65 - 99 mg/dL) 304 H Calcium (8.4 - 10.2 mg/dL) 9.1 Phosphorus (2.5 - 4.5 mg/dL) 4.9 H Magnesium (1.6 - 2.3 mg/dL) 2.4 H Total Bilirubin (0.2 - 1.3 mg/dL) 1.0 AST (14 - 36 U/L) 25 ALT (9 - 52 U/L) 41 Albumin (3.5 - 5.0 g/dL) 3.8 Coagulation PT (9.4 - 12.5 SEC) 14.2 H INR (0.90 - 1.19) 1.36 H APTT (25 - 37 SEC) 34 Fibrinogen Activity (200 - 393 MG/DL) 132 L Hematology CBC w Diff NO MAN DIFF REQ NO MAN DIFF REQ WBC (4.8 - 10.8 /CUMM) 2.9 L 2.8 L RBC (4.20 - 5.40 /CUMM) 2.66 L 2.64 L Hgb (12.0 - 16.0 G/DL) 7.8 L 7.7 L Hct (37 - 47 %) 24.0 L 23.8 L MCV (81.0 - 99.0 FL) 90.2 90.2 MCH (27.0 - 31.0 PG) 29.4 29.3 MCHC (33.0 - 37.0 G/DL) 32.5 L 32.5 L RDW (11.5 - 14.5 %) 18.1 H 17.9 H Plt Count (130 - 400 /CUMM) 35 L 45 L MPV (7.4 - 10.4 FL) 10.0 10.5 H Gran % (42.2 - 75.2 %) 90.4 H 92.4 H Lymphocytes % (20.5 - 51.1 %) 7.3 L 7.2 L Monocytes % (1.7 - 9.3 %) 2.3 0.3 L Eosinophils % (0 - 5 %) 0 0.1 Basophils % (0.0 - 2.0 %) 0 0 Absolute Granulocytes (1.4 - 6.5 /CUMM) 2.6 2.6 Absolute Lymphocytes (1.2 - 3.4 /CUMM) 0.2 L 0.2 L Absolute Monocytes (0.10 - 0.60 /CUMM) 0.1 0 L Absolute Eosinophils (0.0 - 0.7 /CUMM) 0 0 Absolute Basophils (0.0 - 0.2 /CUMM) 0 0 02/05 02/04 0525 0450 Chemistry Sodium (137 - 145 mmol/L) 147 H 146 H Potassium (3.5 - 5.1 mmol/L) 4.9 4.5 Chloride (98 - 107 mmol/L) 103 101 Carbon Dioxide (22 - 30 mmol/L) 27 28 Anion Gap (5 - 16) 17 H 17 H BUN (7 - 17 mg/dL) 110 *H 104 *H Creatinine (0.5 - 1.0 mg/dL) 1.2 H 1.2 H Estimated GFR (>60 ml/min) 43 L 43 L Glucose (65 - 99 mg/dL) 161 H 156 H Calcium (8.4 - 10.2 mg/dL) 9.2 9.3 Phosphorus (2.5 - 4.5 mg/dL) 3.5 3.5 Magnesium (1.6 - 2.3 mg/dL) 2.3 2.2 Total Bilirubin (0.2 - 1.3 mg/dL) 0.7 0.8 AST (14 - 36 U/L) 20 14 ALT (9 - 52 U/L) 33 23 Albumin (3.5 - 5.0 g/dL) 3.7 3.8 Coagulation PT (9.4 - 12.5 SEC) 13.6 H INR (0.90 - 1.19) 1.30 H Fibrinogen Activity (200 - 393 MG/DL) 159 L Hematology CBC w Diff MAN DIFF ORDERED NO MAN DIFF REQ WBC (4.8 - 10.8 /CUMM) 2.8 L 3.7 L RBC (4.20 - 5.40 /CUMM) 2.40 L 2.66 L Hgb (12.0 - 16.0 G/DL) 7.0 *L 7.9 L Hct (37 - 47 %) 21.8 L 24.3 L MCV (81.0 - 99.0 FL) 90.8 91.1 MCH (27.0 - 31.0 PG) 29.3 29.5 MCHC (33.0 - 37.0 G/DL) 32.3 L 32.4 L RDW (11.5 - 14.5 %) 18.3 H 18.8 H Plt Count (130 - 400 /CUMM) 31 L 34 L MPV (7.4 - 10.4 FL) 10.1 9.7 Gran % (42.2 - 75.2 %) 91.7 H 94.9 H Lymphocytes % (20.5 - 51.1 %) 6.3 L 4.2 L Monocytes % (1.7 - 9.3 %) 1.7 0.8 L Eosinophils % (0 - 5 %) 0.1 0 Basophils % (0.0 - 2.0 %) 0.2 0.1 Absolute Granulocytes (1.4 - 6.5 /CUMM) 2.6 3.5 Absolute Lymphocytes (1.2 - 3.4 /CUMM) 0.2 L 0.2 L Absolute Monocytes (0.10 - 0.60 /CUMM) 0 L 0 L Absolute Eosinophils (0.0 - 0.7 /CUMM) 0 0 Absolute Basophils (0.0 - 0.2 /CUMM) 0 0 Platelet Estimate (ADEQUATE) DECREASED Hypochromic-Microcytic 2+ Poikilocytosis 1+ Ovalocytes 1+ Assessment/Plan Assessment/Recommendations: ASSESSMENT: 1. Hemoccult Positive Stool 2. Pancytopenia 3. ITP 4. Pseudomonas Pneumonia 5. Hypoxic Respiratory Failure RECOMMENDATIONS: Discussed with Dr. Pyle and with house officers. Patient is currently on Protonix 50 mg IV BID. As there is no overt GI blood loss, I do not believe that EGD is warranted. Given thrombocytopenia in the absence of overt GI bleeding one would not be surprised from a hemoccult positive stool due to small mucosal breaks. Patient is too unstalbe for EGD at this time and it is unlikely that EGD would management architect. Further, family is considering hospice care at this time. Please do not hesitate to contact GI should the need arise in the future. In the meantime we will sign off. Consult Acknowledgment - Thank you for your consult request.
--- NOTE | 2017-06-10 17:50 | CT SCAN REPORT ---
EXAMINATION: CT CHEST WITHOUT IV CONTRAST CT ABDOMEN AND PELVIS WITHOUT IV CONTRAST CLINICAL INFORMATION: 87-year-old female with hypoxia and pleural effusion. Persistent leukocytosis. COMPARISON: Chest CT from 05/19/2017. TECHNIQUE: Noncontrast multidetector CT imaging examination of the chest, abdomen and pelvis was performed. Axial images are displayed at 0.625 mm and 5 mm slice thickness. Coronal and sagittal reformatted images were generated at the technologist's workstation and submitted for review. DLP: 1832 mGy-cm FINDINGS: CHEST - TUBES/LINES: The endotracheal tube is 3.7 cm above the krystal. Enteric tube extends through the esophagus and into the proximal stomach. A right arm peripherally inserted catheter terminates at the junction of the superior vena cava and right atrium. LUNGS and PLEURA: Persistent small bilateral pleural effusions layer from the bases to the apices. Interstitial and groundglass opacity in both lungs is compatible with edema, although extensive pneumonitis could have a similar appearance. The pleural effusions produce compressive atelectasis in the dependent aspect of each upper and lower lobe. The left lower lobe is completely collapsed, similar compared to 05/19/2017, and there is chronic, near complete collapse of the lumen of the left mainstem bronchus without endobronchial mucous plugging or extrinsic mass. MEDIASTINUM: Cardiomegaly and moderate atherosclerotic calcification of coronary arteries, most severely affecting the left anterior descending coronary artery. No pericardial effusion. Pulmonary arteries are chronically dilated, suggestive of arterial hypertension. Atherosclerotic thoracic aorta is normal in caliber. The esophagus has normal wall thickness. Thyroid gland is unremarkable. LYMPHATICS: No pathologic sized axillary, hilar or mediastinal lymph nodes. CHEST WALL/BONES: Osteoarthritis of bilateral sternoclavicular joints (left worse than right) and visualized right glenohumeral joint. No acute findings within the degenerated thoracic spine. No aggressive osseous lesions. ABDOMEN AND PELVIS - HEPATOBILIARY: Liver has normal size and attenuation. No evidence of hepatic mass or intrahepatic bile duct dilatation. No radiopaque calculi. The edematous thickening of the gallbladder wall is likely secondary to anasarca. PANCREAS: No focal lesions within the atrophied pancreas. No evidence of pancreatic ductal dilatation. SPLEEN: Spleen measures up to 12.9 cm maximum dimension. No focal splenic lesion. ADRENAL GLANDS: Unremarkable. KIDNEYS, URETERS, BLADDER: Mild bilateral renal cortical atrophy. Mild pelviectasis of the right kidney without evidence of ureterolithiasis or hydroureter; this suggests possibility of a low-grade ureteropelvic junction obstruction. A 1.9 cm hyperdense lesion of the upper pole of the right kidney has attenuation of approximately 60 Hounsfield units, likely a hyperdense cyst. There are likely small cortical cysts of the mid and lower pole the left kidney, suboptimally evaluated due to high level of image noise due to patient's arms positioned in along the sides. Urinary bladder is decompressed by a Faust catheter. GI TRACT AND PERITONEUM: The tip of the enteric tube is in the proximal gastric body. Bowel loops are normal in caliber. Diverticulosis of the descending and sigmoid colon. [id number] amount of ascitic fluid is present within the abdomen and pelvis. ABDOMINAL WALL: Subcutaneous tissue edema of the abdominal wall, flanks, back and thighs. VASCULAR: Atherosclerotic calcification of the abdominal aorta and iliac arteries without aneurysm. LYMPH NODES: No pathologic sized lymph nodes within the abdomen or pelvis. 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 2.5 cm structure of the right adnexa with attenuation of 3 Hounsfield units likely represents an old adnexal cyst rather than cystic change in a pedunculated leiomyoma. OSSEOUS STRUCTURES: Multilevel facet arthropathy and disc degeneration of the lumbar spine. No aggressive osseous lesions. IMPRESSION: 1. Tubes and lines are in satisfactory position. The endotracheal tube is 3.7 cm above the krystal. 2. Cardiomegaly, interstitial edema and small bilateral pleural effusions which remain similar in size compared to 05/19/2017. Groundglass opacity from superimposed pneumonitis cannot be excluded. Left lower lobe remains collapsed. 3. Chronically enlarged pulmonary arteries, suggestive of pulmonary arterial hypertension. 4. Anasarca with body wall edema and [id number] amount of ascitic fluid in the abdomen and pelvis. 5. Colonic diverticulosis without overt evidence for acute diverticulitis. 6. Mild right hydronephrosis could be secondary to a low-grade ureteropelvic junction obstruction; there are no calculi identified within the kidney or ureter.
[2017-06-11] VITALS: BP 120/70
[2017-06-11 05:09] LABS: ABSOLUTE BASOPHIL COUNT 0 /CUMM (0.0-0.2); ABSOLUTE EOSINOPHIL COUNT 0 /CUMM (0.0-0.7); ABSOLUTE GRANULOCYTE CT 3.3 /CUMM (1.4-6.5); ABSOLUTE LYMPH COUNT 0.2 /CUMM (1.2-3.4); ABSOLUTE MONOCYTE COUNT 0.1 /CUMM (0.10-0.60); BASOPHIL % 0 % (0.0-2.0); EOSINOPHIL % 0 % (0-5); MEAN CORPUSCULAR HGB 29.4 PG (27.0-31.0); MEAN CORPUSCULAR HGB CONC 32.7 G/DL (33.0-37.0); MEAN CORPUSCULAR VOLUME 90.1 FL (81.0-99.0); MEAN PLATELET VOLUME 9.2 FL (7.4-10.4); RBC DISTRIBUTION WIDTH 17.6 % (11.5-14.5); RED BLOOD CELL CT 2.67 /CUMM (4.20-5.40); WHITE BLOOD CELL COUNT 3.5 /CUMM (4.8-10.8)
[2017-06-11 05:19] LABS: PT 13.6 SEC (9.4-12.5); PTT 32 SEC (25-37)
[2017-06-11 05:42] LABS: GRANULOCYTE % 93.8 % (42.2-75.2); PLATELET COUNT 48 /CUMM (130-400)
--- NOTE | 2017-06-11 06:03 | RADIOLOGY REPORT ---
EXAMINATION: XR PORTABLE CHEST CLINICAL INFORMATION: Pulmonary edema. Tubes and lines. COMPARISON: Chest x-ray June 10, 2017 TECHNIQUE: Portable frontal view of the chest was obtained. 5:24 AM FINDINGS: Endotracheal tube catheter 5 cm above krystal. Nasogastric tube passes below diaphragm into stomach. Right-sided PICC line catheter tip at cavoatrial junction. There is persistent pulmonary vascular congestion. Density at the lung bases due to effusion and possible underlying infiltrate/consolidation. IMPRESSION: 1. Endotracheal tube catheter 5 cm above krystal. 2. Nasogastric tube passes into stomach. 3. Right-sided PICC line catheter tip at cavoatrial junction. 4. Persistent pulmonary vascular congestion and bilateral pleural effusions and likely bibasilar infiltrate/atelectasis unchanged since prior chest x-ray.
--- NOTE | 2017-06-11 07:01 | PN- Resident CRCU ---
Jaron RAMOS,[facility] 06/11/17 0701: Subjective HPI/CRCU Issues: Atrial Fibrilliation Thrombocytopenia Acute Hypoxic Respiratory Failure Anemia 24 Hour Events: No acute events overnight. Her Plt count has shown an improvement after transfusion yesterday. CAT performed yesterday showed interestitial edema. Will diurese the patient for 2-3 days before extubation. This has been discussed with the son. In the last 24 hours: Input-3592 mL, output 1850 mL Total volume input 29,600 mL, output 41,589 mL. Objective Vital Signs & I&O Last 8 Hrs of Vitals and I&O: . Exam General Appearance: alert, awake, intubated, mild distress Head: atraumatic, normal appearance Respiratory: normal breath sounds, chest non-tender, rhonchi Cardiovascular: tachycardia, irregularly irregular Gastrointestinal: soft, non-tender Extremities: edema of right upper/lower extremity Cranial Nerves: normal hearing Skin: intact Skin Temp/Moisture Exam: Warm/Dry Sepsis Skin Exam (color): Normal for Ethnicity Weaning Parameters NIF: 23 Minute Volume: 9.08 Resp rate: 16 Vt: 565 Heart Rate: 120 Weaning Schedule Start Time: 15 Minute Volume: 12.5 Resp Rate: 42 Vt: 285 Heart Rate: 125 End Time: 0922 Minute Volume: 10.5 Resp Rate: 40 Vt: 316 Heart Rate: 144 Current Medications: Current Medications Sig/Ric Start time Last Medication Dose Route Stop Time Status Admin Acetaminophen 650 MG Q6P PRN 05/19 0300 AC PO Acetaminophen 1,000 MG Q6P PRN 05/19 0300 AC 06/09 IV 1315 Acetylcysteine 4 ML BID 06/06 2200 AC 06/11 INH 0820 Albumin Human 25 GM Q8H 05/24 0822 AC 06/11 IV 0826 Albuterol Sulfate 3 ML EVERY 4 HRS/AWAKE 05/30 0800 AC 06/11 INH 0820 Amiodarone HCl 200 MG DAILY 06/04 1000 AC 06/11 PO 0922 Artificial Tears 2 GTT 4 TIMES/DAY PRN 05/30 0745 AC 06/06 OPH 1557 Ascorbic Acid 500 MG DAILY 05/29 1000 AC 06/11 PO 0922 Ciprofloxacin 500 MG 0600,1800 06/07 0600 AC 06/10 PO 06/11 0559 1738 Dexamethasone 40 MG DAILY 06/10 1000 CAN IV Dexamethasone 40 MG DAILY 06/10 1000 AC 06/11 Sodium Chloride 50 ML IV 0917 Diltiazem HCl 60 MG Q6 06/02 1800 AC 06/11 PO 0534 Docusate Sodium 100 MG DAILY AC 05/23 0820 AC 06/10 PO 0549 Furosemide 40 MG BID 06/11 1000 AC 06/11 IV 0917 Glycerin 2 SPRAY Q2P PRN 05/27 0800 AC PO Glycerin/Mineral Oil 1 PEDRITO TID PRN 05/24 1100 AC 06/06 TOP 1557 Insulin Aspart 0 Q4H 05/21 1800 AC 06/11 SC 0534 Insulin Detemir 20 UNITS BID 06/10 1000 AC 06/11 SC 0921 Lorazepam 1 MG DAILY 06/08 1000 AC 06/11 PO 0921 Lorazepam 2 MG AT BEDTIME 06/07 2200 AC 06/10 PO 2124 Metoprolol Tartrate 100 MG BID 05/30 1000 AC 06/11 PO 0921 Multivitamins 1 TAB DAILY 05/29 1000 AC 06/11 PO 0922 Pantoprazole Sodium 40 MG BID 06/03 1000 AC 06/11 IV 0917 Polyethylene Glycol 17 GM DAILY 05/23 1000 AC 06/11 PO 0922 Potassium Chloride 40 MEQ DAILY 06/05 1000 AC 06/11 PO 0920 Impression/Plan Impression/Problem List Impression: 86 year old woman with past medical history of hypertension, hyperlipidemia, [place] s/p PCI with stent, diabetes mellitus, and restless leg syndrome, history of atrial fibrillation with anticoagulation on hold due to severe thrombocytopenia was sent in from extended care facility for hypoxia, leukocytosis and productive cough. She was admitted on telemetry floor and transfered to ICU after patient desaturated became unresponsive. Assessment and Plan: Acute hypoxic respiratory failure likely secondary to HCAP: * Continue Ciprofloxacin 500mg BID. * Her CXR shows persistent pulmonary vascular congestion and bilateral pleural effusions. She appears to have chronic left lower lobe collapse. * CT Chest/Abd yesterday showed cardiomegaly, interstitial edema and small bilateral pleural effusions. Chronically enlarged pulmonary arteries. * ID recs appreciated. * She has a rising BUN, which is concerning for a internal GI bleed. Her last stools were guiac positive. However, per GI the rise in BUN is not consistent with acute active bleeding. * Goals of care reviewed with family. Will give her a trial of lasix for 2-3 days before extubation. Atrial Fibrilliation: * Will continue metoprolol 100mg BID. * Continue oral Amiodarone at 200mg QD. * Continue Cardizem 60mg q6. Can be decreased to 30mg if not tolerated by blood pressure. * Discontinued Elliquis 2.5mg BID as Plt count is falling. * Echo - Normal left ventricular ejection fraction visually estimated at > 60% . Immune Thrombocytopenia: * Her platelets have shown a good response to transfusion but continue to downtrend. * Continue dexamethasone 40mg IV daily. * s/p 3 unit transfusion of platelets today (05/22, 06/09, 06/10). 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 * Will continue to follow DIC panel. * Can transfuse Plt or IVIG if Plt <30K and actively bleeding. * Transfuse cryoprecipitate if fibrinogen <100 GARCÍA on CKD: /resolved * Cr 1.2 today. * Was likely contrast induced nephropathy initially. * Nephro recs appreciated. * Strict I&Os. Diabetes Mellitus: * Continue tube feeds with Glucerna 1.2. * Levemir 20mg BID * Insulin SS. Adjusted per Endo's recommendations. Lower Extremity Skin Changes: /resolved * Was evaluated by vascular surgery. Recommend no surgical intervention at this time. * Small ulcer on left/right foot base. Wound care notes appreciated. History of restless leg syndrome: * Sinemet was recently discontinued * Lyrica on hold currently. * Lubriderm to affected skin. DVT Prophylaxis: ALPS Code: Full Problem List: 1. A-fib Pain Ratin Tomorrow's Labs & Rationales: CBC, ICU bundle, DIC panel Plan DVT/Prophylaxis: Jordi Trujillo MD 06/11/17 1036: Attending MD Review Statement Attending Sign Off Attending Cosign Statement: I have: examined this patient, reviewed avalbl EMR data, personally reviewd images, discussd w/resident/PA/VULCANIZING MACHINE OPERATOR, discussed mgmt plan w/ida, discussed mgmt plan w/CM, discussed mgmt plan w/pt, agreed w/resident/PA/VULCANIZING MACHINE OPERATOR, amended to note. Other Findings: Jordi Lopez M.D. have examined this patient, reviewed available EMR data, personally reviewed images, discussed with resident/PA/VULCANIZING MACHINE OPERATOR, discussed management plan with housestaff and nursing staff, discussed managment plan all of healthcare providers, discussed management plan with patient and/or family, agreed with resident/PA/VULCANIZING MACHINE OPERATOR. The past history and parts of the chart have been autopopulated. Impression 86 year old woman resolved septic shock a.fib RVR acute hypoxemic respiratory failure GARCÍA improved anemia/throbocytopenia Plan -cont mechanical ventilation, with a plan for extubation within the next 48-72 hrs if no improvement, tracheostomy was declined by the famiy -ciprofloxacin -cardiology, ID f/u -f/u hematology recommendations, stress steroids can be tapered per heme -endocrinology appreciated -nephrology consultation appreciated DVT prophylaxis at all times TTS 35 min
--- NOTE | 2017-06-11 07:31 | PN- Diabetes ---
Assessment/Plan Assessment: Patient is now reintubated. She is on a respirator and sedated. Her steroid dose is prednisone 80 mg once a day. Sputum culture is positive for pseudomonas. Patient's antibiotics have been adjusted.. The patient is on tube feedings with Glucerna at 65 mL/h. She is receiving free water flushes via feeding tube. Unfortunately the patient's chest x-ray is not improving. Also her blood pressure is becoming low. The patient was begun on dexamethasone 40 mg once a day yesterday. To counteract the effects we increased her Levemir to 20 units twice a day and also increased her sliding scale. Her most recent blood sugars are in a fairly good range at 198 and 154. Patient's serum sodium is 143 BUN 109 creatinine 1.2. Plan: Suggest continue the present insulin while the patient is on high dose of dexamethasone. If the dexamethasone is tapered we will need to adjust her insulin regimen. Subjective Subjective: Intubated and sedated Objective Last 24 Hrs of Vital Signs/I&O Vital Signs Date Time Temp Pulse Resp B/P B/P Pulse O2 O2 Flow FiO2 Mean Ox Delivery Rate / 0559 45 02/ 0534 122 127/84 02/ 0400 97 Ventilator 45% 02/ 0229 45 02/07 0005 45 02/07 0000 112 120/78 02/07 0000 97 Ventilator 45% 02/07 0000 99.3 102 20 120/70 97 Ventilator 45% 02/06 2235 45 02/06 2124 131 125/80 02/ 2000 95 Ventilator 40% 02/06 1910 45 02/06 1600 45 02/06 1600 98 Ventilator 50% 02/06 1600 97.5 131 20 130/80 98 Ventilator 40% 02/06 1357 50 02/06 1335 40 02/06 1200 95 Ventilator 40% 02/06 1159 97.2 99 23 124/80 96 Ventilator 40% 02/06 1138 104 124/80 02/06 0939 127 108/60 02/06 0939 108/60 02/06 0830 40 02/06 0800 97.6 95 19 118/74 95 Ventilator 40% 02/ 0800 96 Ventilator 40% Intake & Output / 0800 02/07 0000 02/06 1600 Intake Total 1155 1168 1269 Output Total 700 550 600 Balance 455 618 669 Intake, Blood 218 Product Intake, IV 110 130 195 Intake, Oral 0 0 Intake, Tube 495 368 406 Feeding Intake, Tube 550 670 450 Irrigant Number 1 1 1 Bowel Movements Output, Urine 700 550 600 Patient 289 lb Weight Weight Bed scale Measurement Method Vital Signs Date Time Temp Pulse Resp B/P B/P Pulse O2 O2 Flow FiO2 Mean Ox Delivery Rate 06/11 0559 45 06/11 0534 122 127/84 02/ 0400 97 Ventilator 45% / 0229 45 06/11 0005 45 06/11 0000 112 120/78 02 0000 97 Ventilator 45% / 0000 99.3 102 20 120/70 97 Ventilator 45% 02/ 2235 45 02/ 2124 131 125/80 / 2000 95 Ventilator 40% / 1910 45 02/ 1600 45 / 1600 98 Ventilator 50% / 1600 97.5 131 20 130/80 98 Ventilator 40% 02/06 1357 50 02/06 1335 40 02/ 1200 95 Ventilator 40% / 1159 97.2 99 23 124/80 96 Ventilator 40% / 1138 104 124/80 02/06 0939 127 108/60 02/06 0939 108/60 02/06 0830 40 02/06 0800 97.6 95 19 118/74 95 Ventilator 40% / 0800 96 Ventilator 40% Intake & Output 06/11 0800 / 0000 02/ 1600 Intake Total 1155 1168 1269 Output Total 700 550 600 Balance 455 618 669 Intake, Blood 218 Product Intake, IV 110 130 195 Intake, Oral 0 0 Intake, Tube 495 368 406 Feeding Intake, Tube 550 670 450 Irrigant Number 1 1 1 Bowel Movements Output, Urine 700 550 600 Patient 289 lb Weight Weight Bed scale Measurement Method Physical Exam General Appearance: awake, sedated, intubated Head: normal appearance Respiratory: normal breath sounds Cardiovascular: tachycardia, irregularly irregular Current Medications: Current Medications Sig/Ric Start time Last Medication Dose Route Stop Time Status Admin Acetaminophen 650 MG Q6P PRN 05/19 299 AC PO Acetaminophen 1,000 MG Q6P PRN 05/19 299 AC 06/09 IV 1315 Acetylcysteine 4 ML BID 06/06 2199 AC 06/10 INH 2053 Albumin Human 25 GM Q8H 05/24 08 AC 06/11 IV 0000 Albuterol Sulfate 3 ML EVERY 4 HRS/AWAKE 05/30 0800 AC 06/10 INH 2053 Amiodarone HCl 200 MG DAILY 06/04 1000 AC 06/10 PO 0939 Artificial Tears 2 GTT 4 TIMES/DAY PRN 05/30 0745 AC 06/06 OPH 1557 Ascorbic Acid 500 MG DAILY 05/29 1000 AC 06/10 PO 0939 Ciprofloxacin 500 MG 0600,1800 06/07 0600 AC 06/10 PO 06/11 0559 1738 Dexamethasone 40 MG DAILY 06/10 1000 CAN IV Dexamethasone 40 MG DAILY 06/10 1000 AC 06/10 Sodium Chloride 50 ML IV 1023 Diltiazem HCl 60 MG Q6 06/02 1800 AC 06/11 PO 0534 Docusate Sodium 100 MG DAILY AC 05/23 0820 AC 06/10 PO 0549 Glycerin 2 SPRAY Q2P PRN 05/27 0800 AC PO Glycerin/Mineral Oil 1 PEDRITO TID PRN 05/24 1100 AC 06/06 TOP 1557 Insulin Aspart 0 Q4H 05/21 1800 AC 06/11 SC 0534 Insulin Detemir 20 UNITS BID 06/10 1000 AC 06/10 SC 2124 Insulin Detemir 14 UNITS BID 06/04 1000 DC 06/09 SC 2208 Lorazepam 1 MG DAILY 06/08 1000 AC 06/10 PO 0939 Lorazepam 2 MG AT BEDTIME 06/07 2200 AC 06/10 PO 2124 Metoprolol Tartrate 100 MG BID 05/30 1000 AC 06/10 PO 2124 Multivitamins 1 TAB DAILY 05/29 1000 AC 06/10 PO 0939 Pantoprazole Sodium 40 MG BID 06/03 1000 AC 06/10 IV 2124 Polyethylene Glycol 17 GM DAILY 05/23 1000 AC 06/10 PO 0939 Potassium Chloride 40 MEQ DAILY 06/05 1000 AC 06/08 PO 0914 Prednisone 80 MG DAILY 06/02 1000 DC 06/08 PO 0914 Findings Pertinent Lab/Silvano Results: Laboratory Tests 06/11 06/11 0540 0430 Blood Gas pH (7.35 - 7.45 PH) 7.43 pCO2 (35 - 45 TORR) 37 pO2 (80 - 100 TORR) 91 HCO3 (21 - 28 MEQ/L) 24 ABG O2 Sat (Measured) (>96.0 %) 95.0 L P-50 (Temp Corrected) N Carboxyhemoglobin (1.5 - 5.0 %) 1.5 O2 Concentration % 45% Temperature (97.0 - 100.0 FARH) 99.3 Respiration Rate (BPM) 12 O2 Delivery Method VENT Vent Mode VC-AC Expiratory Pressure (CMH2O/P) 5 Tidal Volume (CC) 480 Chemistry Sodium (137 - 145 mmol/L) 143 Potassium (3.5 - 5.1 mmol/L) 4.5 Chloride (98 - 107 mmol/L) 102 Carbon Dioxide (22 - 30 mmol/L) 25 Anion Gap (5 - 16) 16 BUN (7 - 17 mg/dL) 119 *H Creatinine (0.5 - 1.0 mg/dL) 1.2 H Estimated GFR (>60 ml/min) 43 L Glucose (65 - 99 mg/dL) 158 H Calcium (8.4 - 10.2 mg/dL) 9.4 Phosphorus (2.5 - 4.5 mg/dL) 4.8 H Magnesium (1.6 - 2.3 mg/dL) 2.4 H Total Bilirubin (0.2 - 1.3 mg/dL) 0.9 AST (14 - 36 U/L) 20 ALT (9 - 52 U/L) 48 Albumin (3.5 - 5.0 g/dL) 4.1 Coagulation PT (9.4 - 12.5 SEC) 13.6 H INR (0.90 - 1.19) 1.30 H APTT (25 - 37 SEC) 32 Fibrinogen Activity (200 - 393 MG/DL) 126 L Hematology CBC w Diff NO MAN DIFF REQ WBC (4.8 - 10.8 /CUMM) 3.5 L RBC (4.20 - 5.40 /CUMM) 2.67 L Hgb (12.0 - 16.0 G/DL) 7.9 L Hct (37 - 47 %) 24.0 L MCV (81.0 - 99.0 FL) 90.1 MCH (27.0 - 31.0 PG) 29.4 MCHC (33.0 - 37.0 G/DL) 32.7 L RDW (11.5 - 14.5 %) 17.6 H Plt Count (130 - 400 /CUMM) 48 L MPV (7.4 - 10.4 FL) 9.2 Gran % (42.2 - 75.2 %) 93.8 H Lymphocytes % (20.5 - 51.1 %) 4.7 L Monocytes % (1.7 - 9.3 %) 1.5 L Eosinophils % (0 - 5 %) 0 Basophils % (0.0 - 2.0 %) 0 Absolute Granulocytes (1.4 - 6.5 /CUMM) 3.3 Absolute Lymphocytes (1.2 - 3.4 /CUMM) 0.2 L Absolute Monocytes (0.10 - 0.60 /CUMM) 0.1 Absolute Eosinophils (0.0 - 0.7 /CUMM) 0 Absolute Basophils (0.0 - 0.2 /CUMM) 0 Miscellaneous Phlebotomy Draw Site LEFT RADIAL 06/10 1500 Hematology CBC w Diff NO MAN DIFF REQ WBC (4.8 - 10.8 /CUMM) 4.2 L RBC (4.20 - 5.40 /CUMM) 2.67 L Hgb (12.0 - 16.0 G/DL) 7.9 L Hct (37 - 47 %) 23.9 L MCV (81.0 - 99.0 FL) 89.5 MCH (27.0 - 31.0 PG) 29.5 MCHC (33.0 - 37.0 G/DL) 32.9 L RDW (11.5 - 14.5 %) 17.6 H Plt Count (130 - 400 /CUMM) 56 L MPV (7.4 - 10.4 FL) 8.9 Gran % (42.2 - 75.2 %) 96.2 H Lymphocytes % (20.5 - 51.1 %) 3.1 L Monocytes % (1.7 - 9.3 %) 0.6 L Eosinophils % (0 - 5 %) 0.1 Basophils % (0.0 - 2.0 %) 0 Absolute Granulocytes (1.4 - 6.5 /CUMM) 4.0 Absolute Lymphocytes (1.2 - 3.4 /CUMM) 0.1 L Absolute Monocytes (0.10 - 0.60 /CUMM) 0 L Absolute Eosinophils (0.0 - 0.7 /CUMM) 0 Absolute Basophils (0.0 - 0.2 /CUMM) 0
--- NOTE | 2017-06-11 07:40 | PN- Hematology ---
Subjective Subjective: She remains intubated. She denies any pain. She has not had any fever or chills Review of Systems: Limited secondary to intubation. Objective Vital Signs and I&Os Vital Signs Date Time Temp Pulse Resp B/P B/P Pulse O2 O2 Flow FiO2 Mean Ox Delivery Rate 06/11 0559 45 06/11 0534 122 127/84 06/11 0400 97 Ventilator 45% 06/11 0229 45 06/11 0005 45 06/11 0000 112 120/78 06/11 0000 97 Ventilator 45% 06/11 0000 99.3 102 20 120/70 97 Ventilator 45% 06/10 2235 45 06/10 2124 131 125/80 06/10 2000 95 Ventilator 40% 06/10 1910 45 06/10 1600 45 06/10 1600 98 Ventilator 50% 06/10 1600 97.5 131 20 130/80 98 Ventilator 40% 06/10 1357 50 / 1335 40 / 1200 95 Ventilator 40% 06/10 1159 97.2 99 23 124/80 96 Ventilator 40% 06/10 1138 104 124/80 06/10 0939 127 108/60 06/10 0939 108/60 / 0830 40 06/10 0800 97.6 95 19 118/74 95 Ventilator 40% 06/10 0800 96 Ventilator 40% Intake & Output 06/11 0800 06/11 0000 06/10 1600 06/10 0800 06/10 0000 / 1600 Intake Total 1155 1168 1269 1191 1080 1400 Output Total 700 550 600 600 810 600 Balance 455 618 669 591 270 800 Intake, Blood 218 550 Product Intake, IV 110 130 195 100 110 260 Intake, Oral 0 0 0 Intake, Tube 495 368 406 486 430 320 Feeding Intake, Tube 550 670 450 605 540 270 Irrigant Number 1 1 1 0 1 Bowel Movements Output, Urine 700 550 600 600 810 600 Patient 131.258 kg 130.209 kg Weight Weight Bed scale Bed scale Measurement Method Physical Exam: General Appearance: arousable, comfortable, intubated Ears, Nose, Throat: ET tube in place Respiratory: chest non-tender, rhonchi, decrease BS on left,FiO2 45% Cardiovascular: tachycardia, irregularly irregular Abdomen: normal bowel sounds, soft, non-tender Extremities: Right upper extremity 1+ edema, ecchymoses in upper extremities, hyperpigmented lower extremities, RUE with PICC line Skin: dry Neurologic/Psychiatric: arousable, follows command, intubated Current Medications: Current Medications Sig/Ric Start time Last Medication Dose Route Stop Time Status Admin Acetaminophen 650 MG Q6P PRN 05/19 0300 AC PO Acetaminophen 1,000 MG Q6P PRN 05/19 0300 AC 06/09 IV 1315 Acetylcysteine 4 ML BID 06/06 2200 AC 06/10 INH 205 Albumin Human 25 GM Q8H 05/24 0822 AC 06/11 IV 0000 Albuterol Sulfate 3 ML EVERY 4 HRS/AWAKE 05/30 0800 AC 06/10 INH 205 Amiodarone HCl 200 MG DAILY 06/04 1000 AC 06/10 PO 0939 Artificial Tears 2 GTT 4 TIMES/DAY PRN 05/30 0745 AC 06/06 OPH 1557 Ascorbic Acid 500 MG DAILY 05/29 1000 AC 06/10 PO 0939 Ciprofloxacin 500 MG 0600,1800 06/07 0600 AC 06/10 PO 06/11 0559 1738 Dexamethasone 40 MG DAILY 06/10 1000 CAN IV Dexamethasone 40 MG DAILY 06/10 1000 AC 06/10 Sodium Chloride 50 ML IV 1023 Diltiazem HCl 60 MG Q6 06/02 1800 AC 06/11 PO 0534 Docusate Sodium 100 MG DAILY AC 05/23 0820 AC 06/10 PO 0549 Glycerin 2 SPRAY Q2P PRN 05/27 0800 AC PO Glycerin/Mineral Oil 1 PEDRITO TID PRN 05/24 1100 AC 06/06 TOP 1557 Insulin Aspart 0 Q4H 05/21 1800 AC 06/11 SC 0534 Insulin Detemir 20 UNITS BID 06/10 1000 AC 06/10 SC 2124 Insulin Detemir 14 UNITS BID 06/04 1000 DC 06/09 SC 2208 Lorazepam 1 MG DAILY 06/08 1000 AC 06/10 PO 0939 Lorazepam 2 MG AT BEDTIME 06/07 2200 AC 06/10 PO 2124 Metoprolol Tartrate 100 MG BID 05/30 1000 AC 06/10 PO 2124 Multivitamins 1 TAB DAILY 05/29 1000 AC 06/10 PO 0939 Pantoprazole Sodium 40 MG BID 06/03 1000 AC 06/10 IV 2124 Polyethylene Glycol 17 GM DAILY 05/23 1000 AC 06/10 PO 0939 Potassium Chloride 40 MEQ DAILY 06/05 1000 AC 06/08 PO 0914 Prednisone 80 MG DAILY 06/02 1000 DC 06/08 PO 0914 Results Last 24 Hours of Lab Results: Laboratory Tests 06/11 06/11 0540 0430 Blood Gas pH (7.35 - 7.45 PH) 7.43 pCO2 (35 - 45 TORR) 37 pO2 (80 - 100 TORR) 91 HCO3 (21 - 28 MEQ/L) 24 ABG O2 Sat (Measured) (>96.0 %) 95.0 L P-50 (Temp Corrected) N Carboxyhemoglobin (1.5 - 5.0 %) 1.5 O2 Concentration % 45% Temperature (97.0 - 100.0 FARH) 99.3 Respiration Rate (BPM) 12 O2 Delivery Method VENT Vent Mode VC-AC Expiratory Pressure (CMH2O/P) 5 Tidal Volume (CC) 480 Chemistry Sodium (137 - 145 mmol/L) 143 Potassium (3.5 - 5.1 mmol/L) 4.5 Chloride (98 - 107 mmol/L) 102 Carbon Dioxide (22 - 30 mmol/L) 25 Anion Gap (5 - 16) 16 BUN (7 - 17 mg/dL) 119 *H Creatinine (0.5 - 1.0 mg/dL) 1.2 H Estimated GFR (>60 ml/min) 43 L Glucose (65 - 99 mg/dL) 158 H Calcium (8.4 - 10.2 mg/dL) 9.4 Phosphorus (2.5 - 4.5 mg/dL) 4.8 H Magnesium (1.6 - 2.3 mg/dL) 2.4 H Total Bilirubin (0.2 - 1.3 mg/dL) 0.9 AST (14 - 36 U/L) 20 ALT (9 - 52 U/L) 48 Albumin (3.5 - 5.0 g/dL) 4.1 Coagulation PT (9.4 - 12.5 SEC) 13.6 H INR (0.90 - 1.19) 1.30 H APTT (25 - 37 SEC) 32 Fibrinogen Activity (200 - 393 MG/DL) 126 L Hematology CBC w Diff NO MAN DIFF REQ WBC (4.8 - 10.8 /CUMM) 3.5 L RBC (4.20 - 5.40 /CUMM) 2.67 L Hgb (12.0 - 16.0 G/DL) 7.9 L Hct (37 - 47 %) 24.0 L MCV (81.0 - 99.0 FL) 90.1 MCH (27.0 - 31.0 PG) 29.4 MCHC (33.0 - 37.0 G/DL) 32.7 L RDW (11.5 - 14.5 %) 17.6 H Plt Count (130 - 400 /CUMM) 48 L MPV (7.4 - 10.4 FL) 9.2 Gran % (42.2 - 75.2 %) 93.8 H Lymphocytes % (20.5 - 51.1 %) 4.7 L Monocytes % (1.7 - 9.3 %) 1.5 L Eosinophils % (0 - 5 %) 0 Basophils % (0.0 - 2.0 %) 0 Absolute Granulocytes (1.4 - 6.5 /CUMM) 3.3 Absolute Lymphocytes (1.2 - 3.4 /CUMM) 0.2 L Absolute Monocytes (0.10 - 0.60 /CUMM) 0.1 Absolute Eosinophils (0.0 - 0.7 /CUMM) 0 Absolute Basophils (0.0 - 0.2 /CUMM) 0 Miscellaneous Phlebotomy Draw Site LEFT RADIAL 06/10 1500 Hematology CBC w Diff NO MAN DIFF REQ WBC (4.8 - 10.8 /CUMM) 4.2 L RBC (4.20 - 5.40 /CUMM) 2.67 L Hgb (12.0 - 16.0 G/DL) 7.9 L Hct (37 - 47 %) 23.9 L MCV (81.0 - 99.0 FL) 89.5 MCH (27.0 - 31.0 PG) 29.5 MCHC (33.0 - 37.0 G/DL) 32.9 L RDW (11.5 - 14.5 %) 17.6 H Plt Count (130 - 400 /CUMM) 56 L MPV (7.4 - 10.4 FL) 8.9 Gran % (42.2 - 75.2 %) 96.2 H Lymphocytes % (20.5 - 51.1 %) 3.1 L Monocytes % (1.7 - 9.3 %) 0.6 L Eosinophils % (0 - 5 %) 0.1 Basophils % (0.0 - 2.0 %) 0 Absolute Granulocytes (1.4 - 6.5 /CUMM) 4.0 Absolute Lymphocytes (1.2 - 3.4 /CUMM) 0.1 L Absolute Monocytes (0.10 - 0.60 /CUMM) 0 L Absolute Eosinophils (0.0 - 0.7 /CUMM) 0 Absolute Basophils (0.0 - 0.2 /CUMM) 0 Recent Imaging Studies: CT chest, abdomen, and pelvis 06/10/2017: 1. Tubes and lines are in satisfactory position. The endotracheal tube is 3.7 cm above the krystal. 2. Cardiomegaly, interstitial edema and small bilateral pleural effusions which remain similar in size compared to 05/19/2017. Groundglass opacity from superimposed pneumonitis cannot be excluded. Left lower lobe remains collapsed. 3. Chronically enlarged pulmonary arteries, suggestive of pulmonary arterial hypertension. 4. Anasarca with body wall edema and [id number] amount of ascitic fluid in the abdomen and pelvis. 5. Colonic diverticulosis without overt evidence for acute diverticulitis. 6. Mild right hydronephrosis could be secondary to a low-grade ureteropelvic junction obstruction; there are no calculi identified within the kidney or ureter. Assessment/Plan Assessment/Recommendations: Ms. Christine is an 86-year-old female with chronic ITP, HTN, HLD, [place] s/p PCI with stent, DM, and atrial fibrillation who presented with new hypoxia and cough. She has been having new cough a few days ago. CTA demonstrated moderate atelectasis/consolidation in the left upper and lower lobes. There was mild right base atelectasis and moderate left and [id number] right pleural effusions. She was briefly in shock and required Levophed. She was improving on Oxacillin. She was on Zosyn and is now on ceftazidime. She remains in atrial fibrillation with RVR. She is on metoprolol, amiodarone, and diltiazem. She remains intubated and on FiO2 of 45%. She did demonstrate a response to platelet transfusion. Fibrinogen is decreasing. There is concern for worsening DIC. BUN continues to be elevated. Hemoglobin is stable. Dexamethasone 40 mg added yesterday. Anemia is stable. CT chest/abdomen/pelvis done yesterday was reviewed and demonstrated no obvious abscesses or mass. She has some anasarca, pleural effusion, cardiomegaly, and mild hydronephrosis. Pancytopenia: -Continue dexamethasone 40 mg daily for now -Continue to monitor DIC: fibrinogen and INR -Continue to hold apixaban -Transfuse with cryo if fibrinogen <100 Acute hypoxic respiratory failure: -Management as per primary ICU team Atrial fibrillation with RVR: -Management as per cardiology/ICU Please call [phone] with any questions or concerns. Problem List: 1. Pancytopenia 2. Atrial fibrillation with RVR
--- NOTE | 2017-06-11 07:40 | PN- Cardiology ---
Subjective Subjective: Condition unchanged, awake today Objective Vital Signs and I&Os Vital Signs Date Time Temp Pulse Resp B/P B/P Pulse O2 O2 Flow FiO2 Mean Ox Delivery Rate 06/11 0559 45 06/11 0534 122 127/84 06/11 0400 97 Ventilator 45% 06/11 0229 45 02 0005 45 06/11 0000 112 120/78 02/ 0000 97 Ventilator 45% 06/11 0000 99.3 102 20 120/70 97 Ventilator 45% 06/10 2235 45 06/10 2124 131 125/80 06/10 2000 95 Ventilator 40% 06/10 1910 45 06/10 1600 45 06/10 1600 98 Ventilator 50% 06/10 1600 97.5 131 20 130/80 98 Ventilator 40% 06/10 1357 50 06/10 1335 40 06/10 1200 95 Ventilator 40% 06/10 1159 97.2 99 23 124/80 96 Ventilator 40% 06/10 1138 104 124/80 / 0939 127 108/60 06/10 0939 108/60 06/10 0830 40 06/10 0800 97.6 95 19 118/74 95 Ventilator 40% 06/10 0800 96 Ventilator 40% Intake & Output 06/11 0800 02/ 0000 02/06 1600 06/10 0800 / 0000 06/09 1600 Intake Total 1155 1168 1269 1191 1080 1400 Output Total 700 550 600 600 810 600 Balance 455 618 669 591 270 800 Intake, Blood 218 550 Product Intake, IV 110 130 195 100 110 260 Intake, Oral 0 0 0 Intake, Tube 495 368 406 486 430 320 Feeding Intake, Tube 550 670 450 605 540 270 Irrigant Number 1 1 1 0 1 Bowel Movements Output, Urine 700 550 600 600 810 600 Patient 289 lb 287 lb Weight Weight Bed scale Bed scale Measurement Method Physical Exam: HEENT-PERRLA Neck-JVP normal, no bruits Lungs-clear anteriorly Heart-S1S2 irregular, no bruits Abdomen-soft, BS+, no organomegaly Extr-dermatitis, 1+ edema Neuro-non focal Current Medications: Current Medications Sig/Ric Start time Last Medication Dose Route Stop Time Status Admin Acetaminophen 650 MG Q6P PRN 05/19 299 AC PO Acetaminophen 1,000 MG Q6P PRN 05/19 299 AC 06/09 IV 1315 Acetylcysteine 4 ML BID 06/06 2199 AC 06/10 INH 205 Albumin Human 25 GM Q8H 05/24 0822 AC 06/11 IV 0000 Albuterol Sulfate 3 ML EVERY 4 HRS/AWAKE 05/30 0800 AC 06/10 INH 205 Amiodarone HCl 200 MG DAILY 06/04 1000 AC 06/10 PO 0939 Artificial Tears 2 GTT 4 TIMES/DAY PRN 05/30 0745 AC 06/06 OPH 1557 Ascorbic Acid 500 MG DAILY 05/29 1000 AC 06/10 PO 0939 Ciprofloxacin 500 MG 0600,1800 06/07 0600 AC 06/10 PO 06/11 0559 1738 Dexamethasone 40 MG DAILY 06/10 1000 CAN IV Dexamethasone 40 MG DAILY 06/10 1000 AC 06/10 Sodium Chloride 50 ML IV 1023 Diltiazem HCl 60 MG Q6 06/02 1800 AC 06/11 PO 0534 Docusate Sodium 100 MG DAILY AC 05/23 0820 AC 06/10 PO 0549 Glycerin 2 SPRAY Q2P PRN 05/27 0800 AC PO Glycerin/Mineral Oil 1 PEDRITO TID PRN 05/24 1100 AC 06/06 TOP 1557 Insulin Aspart 0 Q4H 05/21 1800 AC 06/11 SC 0534 Insulin Detemir 20 UNITS BID 06/10 1000 AC 06/10 SC 2124 Insulin Detemir 14 UNITS BID 06/04 1000 DC 06/09 SC 2208 Lorazepam 1 MG DAILY 06/08 1000 AC 06/10 PO 0939 Lorazepam 2 MG AT BEDTIME 06/07 2200 AC 06/10 PO 2124 Metoprolol Tartrate 100 MG BID 05/30 1000 AC 06/10 PO 2124 Multivitamins 1 TAB DAILY 05/29 1000 AC 06/10 PO 0939 Pantoprazole Sodium 40 MG BID 06/03 1000 AC 06/10 IV 2124 Polyethylene Glycol 17 GM DAILY 05/23 1000 AC 06/10 PO 0939 Potassium Chloride 40 MEQ DAILY 06/05 1000 AC 06/08 PO 0914 Prednisone 80 MG DAILY 06/02 1000 DC 06/08 PO 0914 Results Last 48 Hrs of Labs/Mics: Laboratory Tests 06/11/17 0540: pH 7.43, pCO2 37, pO2 91, HCO3 24, ABG O2 Sat (Measured) 95.0 L, P-50 (Temp Corrected) N, Carboxyhemoglobin 1.5, O2 Concentration % 45%, Temperature 99.3, Respiration Rate 12, O2 Delivery Method VENT, Vent Mode VC-AC, Expiratory Pressure 5, Tidal Volume 480, Phlebotomy Draw Site LEFT RADIAL 06/11/17 0430: Anion Gap 16, Estimated GFR 43 L, Glucose 158 H, Calcium 9.4, Phosphorus 4.8 H, Magnesium 2.4 H, Total Bilirubin 0.9, AST 20, ALT 48, Albumin 4.1, PT 13.6 H, INR 1.30 H, APTT 32, Fibrinogen Activity 126 L, CBC w Diff NO MAN DIFF REQ, RBC 2.67 L, MCV 90.1, MCH 29.4, MCHC 32.7 L, RDW 17.6 H, MPV 9.2, Gran % 93.8 H, Lymphocytes % 4.7 L, Monocytes % 1.5 L, Eosinophils % 0, Basophils % 0, Absolute Granulocytes 3.3, Absolute Lymphocytes 0.2 L, Absolute Monocytes 0.1, Absolute Eosinophils 0, Absolute Basophils 0 06/10/17 1500: CBC w Diff NO MAN DIFF REQ, RBC 2.67 L, MCV 89.5, MCH 29.5, MCHC 32.9 L, RDW 17.6 H, MPV 8.9, Gran % 96.2 H, Lymphocytes % 3.1 L, Monocytes % 0.6 L, Eosinophils % 0.1, Basophils % 0, Absolute Granulocytes 4.0, Absolute Lymphocytes 0.1 L, Absolute Monocytes 0 L, Absolute Eosinophils 0, Absolute Basophils 0 06/10/17 0645: pH 7.44, pCO2 35, pO2 77 L, HCO3 23, ABG O2 Sat (Measured) 94.0 L, Carboxyhemoglobin 1.0 L, O2 Concentration % .4, Respiration Rate 12, O2 Delivery Method VENT, Vent Mode AC, Expiratory Pressure 5, Tidal Volume 480, Phlebotomy Draw Site LEFT RADIAL 06/10/17 0420: Anion Gap 18 H, Estimated GFR 43 L, Glucose 304 H, Calcium 9.1, Phosphorus 4.9 H, Magnesium 2.4 H, Total Bilirubin 1.0, AST 25, ALT 41, Albumin 3.8, PT 14.2 H, INR 1.36 H, APTT 34, Fibrinogen Activity 132 L, CBC w Diff NO MAN DIFF REQ, RBC 2.66 L, MCV 90.2, MCH 29.4, MCHC 32.5 L, RDW 18.1 H, MPV 10.0, Gran % 90.4 H, Lymphocytes % 7.3 L, Monocytes % 2.3, Eosinophils % 0, Basophils % 0, Absolute Granulocytes 2.6, Absolute Lymphocytes 0.2 L, Absolute Monocytes 0.1, Absolute Eosinophils 0, Absolute Basophils 0 06/09/17 1700: CBC w Diff NO MAN DIFF REQ, RBC 2.64 L, MCV 90.2, MCH 29.3, MCHC 32.5 L, RDW 17.9 H, MPV 10.5 H, Gran % 92.4 H, Lymphocytes % 7.2 L, Monocytes % 0.3 L, Eosinophils % 0.1, Basophils % 0, Absolute Granulocytes 2.6, Absolute Lymphocytes 0.2 L, Absolute Monocytes 0 L, Absolute Eosinophils 0, Absolute Basophils 0 Recent Imaging Studies: CT scan, CXR results noted Assessment/Plan Assessment/Plan 1. Acute hypoxic respiratory failure secondary to pneumonia, possible HFpEF with bilateral pleural effusions (only small effusions by CT, ?isc edema) 2. atrial fibrillation, on oral cardizem, amiodarone, metoprolol, rate acceptable 3. GARCÍA-BUN keeps increasing creatinine remains stable 4.Pancytopenia, s/p PRBC and platelets, lasix given prior to transfusion Plan: lasix 40 mg iv bi daily weights continue Amiodaroine, cardizem and metoprolol discussed with son, will try to diurese patient despite increased BUN for 2-3 days and then extubation. She did not want to have tracheostomy-son discussed it with her twice. Continue telemetry? Yes
[2017-06-11 08:00] VITALS: BP 130/70
[2017-06-11 12:00] VITALS: BP 120/64
[2017-06-11 16:00] VITALS: BP 118/70
[2017-06-12] VITALS: BP 120/70
[2017-06-12 04:42] LABS: ABSOLUTE BASOPHIL COUNT 0 /CUMM (0.0-0.2); ABSOLUTE EOSINOPHIL COUNT 0 /CUMM (0.0-0.7); ABSOLUTE GRANULOCYTE CT 2.7 /CUMM (1.4-6.5); ABSOLUTE LYMPH COUNT 0.2 /CUMM (1.2-3.4); ABSOLUTE MONOCYTE COUNT 0.1 /CUMM (0.10-0.60); BASOPHIL % 0 % (0.0-2.0); EOSINOPHIL % 0 % (0-5); GRANULOCYTE % 90.8 % (42.2-75.2); HEMATOCRIT 22.1 % (37-47); MEAN CORPUSCULAR HGB 29.8 PG (27.0-31.0); MEAN CORPUSCULAR HGB CONC 32.8 G/DL (33.0-37.0); MEAN CORPUSCULAR VOLUME 90.6 FL (81.0-99.0); MEAN PLATELET VOLUME 9.2 FL (7.4-10.4); PLATELET COUNT 36 /CUMM (130-400); RBC DISTRIBUTION WIDTH 17.1 % (11.5-14.5); RED BLOOD CELL CT 2.44 /CUMM (4.20-5.40); WHITE BLOOD CELL COUNT 2.9 /CUMM (4.8-10.8)
[2017-06-12 04:49] LABS: PT 14.2 SEC (9.4-12.5); PTT 31 SEC (25-37)
--- NOTE | 2017-06-12 06:52 | RADIOLOGY REPORT ---
EXAMINATION: XR PORTABLE CHEST CLINICAL INFORMATION: Pulmonary edema. COMPARISON: Chest x-ray June 21, 2017 TECHNIQUE: Portable frontal view of the chest was obtained. 6:13 AM FINDINGS: Patient is rotated to the right which obscures the hilar areas. Low lung volume causing prominence of the bronchovascular markings. There is continued density at both lung bases due to pleural effusions and possible underlying bibasilar infiltrate and/or atelectasis. Endotracheal tube catheter is approximately 6 cm above krystal. Nasogastric tube in stomach. IMPRESSION: No significant change since prior chest x-ray. 1. Endotracheal tube catheter 6 cm above krystal. 2. Nasogastric tube in stomach. 3. Continued pulmonary vascular congestion with bilateral pleural effusions. Possible underlying bibasilar infiltrate and/or atelectasis
--- NOTE | 2017-06-12 07:26 | PN- Resident CRCU ---
[facility]26: Subjective HPI/CRCU Issues: Atrial Fibrilliation Thrombocytopenia Acute Hypoxic Respiratory Failure Anemia 24 Hour Events: No acute events overnight. Platelet count and fibrinogen continue to drop. Her DIC appears to be getting worse. Will administer a unit of Plt and cryoprecipitate today. In the last 24 hours: Input-3035 mL, output 2466 mL Total volume input 32,635 mL, output 44,058 mL. Objective Vital Signs & I&O Last 8 Hrs of Vitals and I&O: . Exam General Appearance: alert, awake, intubated, mild distress Head: atraumatic, normal appearance Respiratory: chest non-tender, rhonchi, wheezing Cardiovascular: tachycardia, irregularly irregular Gastrointestinal: soft, non-tender Extremities: no edema Skin: intact Skin Temp/Moisture Exam: Warm/Dry Sepsis Skin Exam (color): Normal for Ethnicity Weaning Parameters NIF: 23 Minute Volume: 9.08 Resp rate: 16 Vt: 565 Heart Rate: 120 Weaning Schedule Start Time: 914 Minute Volume: 12.5 Resp Rate: 42 Vt: 285 Heart Rate: 125 End Time: 921 Minute Volume: 10.5 Resp Rate: 40 Vt: 316 Heart Rate: 144 Current Medications: Current Medications Sig/Ric Start time Last Medication Dose Route Stop Time Status Admin Acetaminophen 650 MG Q6P PRN 05/19 299 AC PO Acetaminophen 1,000 MG Q6P PRN 05/19 0300 AC 06/09 IV 1315 Acetylcysteine 4 ML BID 06/06 2200 AC 06/12 INH 0819 Albumin Human 25 GM Q8H 05/24 08 DC 06/11 IV 1632 Albuterol Sulfate 3 ML EVERY 4 HRS/AWAKE 05/30 0800 AC 06/12 INH 1225 Amiodarone HCl 200 MG DAILY 06/04 1000 AC 06/12 PO 0927 Artificial Tears 2 GTT 4 TIMES/DAY PRN 05/30 0745 AC 06/06 OPH 1557 Ascorbic Acid 500 MG DAILY 05/29 1000 AC 06/12 PO 09 Dexamethasone 40 MG DAILY 06/10 1000 AC 06/12 Sodium Chloride 50 ML IV 1024 Diltiazem HCl 60 MG Q6 06/02 1800 AC 06/12 PO 1134 Docusate Sodium 100 MG DAILY AC 05/23 0820 AC 06/12 PO 06 Furosemide 40 MG BID 06/11 1000 AC 06/12 IV 0926 Glycerin 2 SPRAY Q2P PRN 05/27 0800 AC PO Glycerin/Mineral Oil 1 PEDRITO TID PRN 05/24 1100 AC 06/06 TOP 1557 Insulin Aspart 14 UNITS .STK-MED ONE 06/12 0226 DC SC 06/12 0227 Insulin Aspart 0 Q4H 05/21 1800 AC 06/12 SC 1025 Insulin Detemir 20 UNITS BID 06/10 1000 AC 06/12 SC 0926 Lorazepam 1 MG DAILY 06/08 1000 AC 06/12 PO 0926 Lorazepam 2 MG AT BEDTIME 06/07 2200 AC 06/11 PO 2223 Metoprolol Tartrate 100 MG BID 05/30 1000 AC 06/12 PO 0927 Multivitamins 1 TAB DAILY 05/29 1000 AC 06/12 PO 0928 Pantoprazole Sodium 40 MG BID 06/03 1000 AC 06/12 IV 0926 Polyethylene Glycol 17 GM DAILY 05/23 1000 AC 06/12 PO 0926 Potassium Chloride 40 MEQ DAILY 06/05 1000 AC 06/12 PO 0926 Impression/Plan Impression/Problem List Impression: 86 year old woman with past medical history of hypertension, hyperlipidemia, HI s/p PCI with stent, diabetes mellitus, and restless leg syndrome, history of atrial fibrillation with anticoagulation on hold due to severe thrombocytopenia was sent in from extended care facility for hypoxia, leukocytosis and productive cough. She was admitted on telemetry floor and transfered to ICU after patient desaturated became unresponsive. Assessment and Plan: Acute hypoxic respiratory failure likely secondary to HCAP: * Continue Ciprofloxacin 500mg BID. * Her CXR shows persistent pulmonary vascular congestion and bilateral pleural effusions. She appears to have chronic left lower lobe collapse. * ID recs appreciated. * She has a rising BUN, which is concerning for a internal GI bleed. Her last stools were guiac positive. However, per GI the rise in BUN is not consistent with acute active bleeding. * Goals of care reviewed with family. Will give her a trial of lasix for another day perhaps and may extubate her if son agrees. Atrial Fibrilliation: * Will continue metoprolol 100mg BID. * Continue oral Amiodarone at 200mg QD. * Continue Cardizem 60mg q6. Can be decreased to 30mg if not tolerated by blood pressure. * Eliquis on hold. * Echo - Normal left ventricular ejection fraction visually estimated at > 60% . Immune Thrombocytopenia: * Her platelets have shown a good response to transfusion but continue to downtrend. * Continue dexamethasone 40mg IV daily. * s/p 4 unit transfusion of platelets today (05/22, 06/09, 06/10, 06/12). 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 * Will continue to follow DIC panel. * Can transfuse Plt or IVIG if Plt <30K and actively bleeding. * Transfused cryoprecipitate today as fibrinogen <100 GARCÍA on CKD: /resolved * Cr 1.2 today. * Was likely contrast induced nephropathy initially. * Nephro recs appreciated. * Strict I&Os. Diabetes Mellitus: * Continue tube feeds with Glucerna 1.2. * Levemir 20mg BID * Insulin SS. Adjusted per Endo's recommendations. Lower Extremity Skin Changes: /resolved * Was evaluated by vascular surgery. Recommend no surgical intervention at this time. * Small ulcer on left/right foot base. Wound care notes appreciated. History of restless leg syndrome: * Sinemet was recently discontinued * Lyrica on hold currently. * Lubriderm to affected skin. DVT Prophylaxis: ALPS Code: Full Problem List: 1. A-fib Pain Ratin Tomorrow's Labs & Rationales: CBC, ICU bundle, DIC panel Plan DVT/Prophylaxis: Jordi Trujillo MD 06/12/17 1127: Attending MD Review Statement Attending Sign Off Attending Cosign Statement: I have: examined this patient, reviewed avalbl EMR data, personally reviewd images, discussd w/resident/PA/MANAGER ACADEMIC, discussed mgmt plan w/ida, discussed mgmt plan w/CM, discussed mgmt plan w/pt, agreed w/resident/PA/MANAGER ACADEMIC, amended to note. Other Findings: Jordi Lopez M.D. have examined this patient, reviewed available EMR data, personally reviewed images, discussed with resident/PA/MANAGER ACADEMIC, discussed management plan with housestaff and nursing staff, discussed managment plan all of healthcare providers, discussed management plan with patient and/or family, agreed with resident/PA/MANAGER ACADEMIC. The past history and parts of the chart have been autopopulated. Impression 86 year old woman resolved septic shock a.fib RVR acute hypoxemic respiratory failure GARCÍA improved anemia/throbocytopenia Plan -cont mechanical ventilation, with a plan for extubation within the next 24 hrs if no improvement, tracheostomy was declined by the famiy -ciprofloxacin -cardiology, ID f/u -f/u hematology recommendations, stress steroids can be tapered per heme -endocrinology appreciated -nephrology consultation appreciated DVT prophylaxis at all times TTS 35 min
--- NOTE | 2017-06-12 07:26 | PN- Cardiology ---
See Addendum Subjective Subjective: Patient is awake, intubated Objective Vital Signs and I&Os Vital Signs Date Time Temp Pulse Resp B/P B/P Pulse O2 O2 Flow FiO2 Mean Ox Delivery Rate 06/12 0619 134 20 118/70 06/12 0543 50 06/12 0400 98 Ventilator 50% 06/12 0311 50 06/12 0030 40 02 0000 99 Ventilator 40% 06/12 0000 97.8 122 19 120/70 99 Ventilator 40% 06/11 2228 40 06/11 2224 130 20 136/80 06/11 2000 94 Ventilator 40% 06/11 1933 40 06/11 1813 128 20 108/60 06/11 1648 45 06/11 1600 94 Ventilator 40% 06/11 1600 98.1 120 20 118/70 97 Ventilator 40% 06/11 1414 45 06/11 1201 45 06/11 1200 96 Ventilator 40% 06/11 1200 98.4 122 20 120/64 96 Ventilator 40% 06/11 1124 125 06/11 0921 117 137/75 06/11 0846 45 06/11 0800 98.3 122 20 130/70 96 Ventilator 40% 06/11 0800 96 Ventilator 40% Intake & Output 06/12 0806/12 0000 06/11 1600 06/11 0800 06/11 0000 06/10 1600 Intake Total 670 1170 1195 1155 1168 1269 Output Total 3237 737 4980 700 550 600 Balance -520 410 -5 455 618 669 Intake, Blood 218 Product Intake, IV 150 235 110 130 195 Intake, Oral 0 0 Intake, Other 200 Intake, Tube 510 520 435 495 368 406 Feeding Intake, Tube 160 300 525 550 670 450 Irrigant Number 0 1 1 1 Bowel Movements Output, Urine 6400 120 2850 700 550 600 Patient 289 lb Weight Weight Bed scale Measurement Method Physical Exam: HEENT-PERRLA Neck-JVP normal, no bruits Lungs-clear anteriorly Heart-S1S2 irregular, no bruits Abdomen-soft, BS+, no organomegaly Extr-dermatitis, trace edema, no cyanosis Neuro-non focal Current Medications: Current Medications Sig/Ric Start time Last Medication Dose Route Stop Time Status Admin Acetaminophen 650 MG Q6P PRN 05/19 299 AC PO Acetaminophen 1,000 MG Q6P PRN 05/19 299 AC 06/09 IV 1315 Acetylcysteine 4 ML BID 02/02 2200 AC 06/11 INH 2004 Albumin Human 25 GM Q8H 05/24 0822 DC 06/11 IV 1632 Albuterol Sulfate 3 ML EVERY 4 HRS/AWAKE 05/30 08 AC 06/11 INH 2004 Amiodarone HCl 200 MG DAILY 06/04 1000 AC 06/11 PO 0922 Artificial Tears 2 GTT 4 TIMES/DAY PRN 05/30 0745 AC 06/06 OPH 1557 Ascorbic Acid 500 MG DAILY 05/29 1000 AC 06/11 PO 0922 Dexamethasone 40 MG DAILY 06/10 1000 AC 06/11 Sodium Chloride 50 ML IV 0917 Diltiazem HCl 60 MG Q6 06/02 1800 AC 06/12 PO 0619 Docusate Sodium 100 MG DAILY AC 05/23 0820 AC 06/12 PO 0619 Furosemide 40 MG BID 06/11 1000 AC 06/11 IV 2223 Glycerin 2 SPRAY Q2P PRN 05/27 0800 AC PO Glycerin/Mineral Oil 1 PEDRITO TID PRN 05/24 1100 AC 06/06 TOP 1557 Insulin Aspart 0 Q4H 05/21 1800 AC 06/12 SC 0647 Insulin Detemir 20 UNITS BID 06/10 1000 AC 06/11 SC 2208 Lorazepam 1 MG DAILY 06/08 1000 AC 06/11 PO 0921 Lorazepam 2 MG AT BEDTIME 06/07 2200 AC 06/11 PO 2223 Metoprolol Tartrate 100 MG BID 05/30 1000 AC 06/11 PO 2224 Multivitamins 1 TAB DAILY 05/29 1000 AC 06/11 PO 0922 Pantoprazole Sodium 40 MG BID 06/03 1000 AC 06/11 IV 2215 Polyethylene Glycol 17 GM DAILY 05/23 1000 AC 06/11 PO 0922 Potassium Chloride 40 MEQ DAILY 06/05 1000 AC 06/11 PO 0920 Results Last 48 Hrs of Labs/Mics: Laboratory Tests 06/12/17 0540: pH 7.46 H, pCO2 35, pO2 78 L, HCO3 24, ABG O2 Sat (Measured) 94.0 L, Carboxyhemoglobin 1.0 L, O2 Concentration % .5, Respiration Rate 12, O2 Delivery Method VENT, Vent Mode AC, Expiratory Pressure 5, Tidal Volume 480, Phlebotomy Draw Site RIGHT BRACHIAL 06/12/17 0410: Anion Gap 14, Estimated GFR 43 L, Glucose 169 H, Calcium 9.3, Phosphorus 5.1 H, Magnesium 2.3, Total Bilirubin 0.9, AST 18, ALT 39, Albumin 3.7, PT 14.2 H, INR 1.36 H, APTT 31, Fibrinogen Activity 96 L, CBC w Diff NO MAN DIFF REQ, RBC 2.44 L, MCV 90.6, MCH 29.8, MCHC 32.8 L, RDW 17.1 H, MPV 9.2, Gran % 90.8 H, Lymphocytes % 7.1 L, Monocytes % 2.1, Eosinophils % 0, Basophils % 0, Absolute Granulocytes 2.7, Absolute Lymphocytes 0.2 L, Absolute Monocytes 0.1, Absolute Eosinophils 0, Absolute Basophils 0 06/11/17 0540: pH 7.43, pCO2 37, pO2 91, HCO3 24, ABG O2 Sat (Measured) 95.0 L, P-50 (Temp Corrected) N, Carboxyhemoglobin 1.5, O2 Concentration % 45%, Temperature 99.3, Respiration Rate 12, O2 Delivery Method VENT, Vent Mode VC-AC, Expiratory Pressure 5, Tidal Volume 480, Phlebotomy Draw Site LEFT RADIAL 06/11/17 0430: Anion Gap 16, Estimated GFR 43 L, Glucose 158 H, Calcium 9.4, Phosphorus 4.8 H, Magnesium 2.4 H, Total Bilirubin 0.9, AST 20, ALT 48, Albumin 4.1, PT 13.6 H, INR 1.30 H, APTT 32, Fibrinogen Activity 126 L, CBC w Diff NO MAN DIFF REQ, RBC 2.67 L, MCV 90.1, MCH 29.4, MCHC 32.7 L, RDW 17.6 H, MPV 9.2, Gran % 93.8 H, Lymphocytes % 4.7 L, Monocytes % 1.5 L, Eosinophils % 0, Basophils % 0, Absolute Granulocytes 3.3, Absolute Lymphocytes 0.2 L, Absolute Monocytes 0.1, Absolute Eosinophils 0, Absolute Basophils 0 06/10/17 1500: CBC w Diff NO MAN DIFF REQ, RBC 2.67 L, MCV 89.5, MCH 29.5, MCHC 32.9 L, RDW 17.6 H, MPV 8.9, Gran % 96.2 H, Lymphocytes % 3.1 L, Monocytes % 0.6 L, Eosinophils % 0.1, Basophils % 0, Absolute Granulocytes 4.0, Absolute Lymphocytes 0.1 L, Absolute Monocytes 0 L, Absolute Eosinophils 0, Absolute Basophils 0 Assessment/Plan Assessment/Plan 1. Acute hypoxic respiratory failure secondary to pneumonia, possible HFpEF with bilateral pleural effusions (only small effusions by CT, ?isc edema) 2. atrial fibrillation, on oral cardizem, amiodarone, metoprolol, rate acceptable 3. GARCÍA-BUN keeps increasing creatinine remains stable 4.Pancytopenia worse today Plan: continue lasix 40 mg iv bid daily weights continue Amiodaroine, cardizem and metoprolol Continue telemetry? Yes
--- NOTE | 2017-06-12 07:33 | PN- Hematology ---
Subjective Subjective: She remains intubated. FiO2 45%. She continues to report no pain. Review of Systems: Limited secondary to intubation. She denies any pain. Objective Vital Signs and I&Os Vital Signs Date Time Temp Pulse Resp B/P B/P Pulse O2 O2 Flow FiO2 Mean Ox Delivery Rate 06/12 0619 134 20 118/70 02/ 0543 50 02/ 0400 98 Ventilator 50% 06/12 0311 50 06/12 0030 40 06/12 0000 99 Ventilator 40% 06/12 0000 97.8 122 19 120/70 99 Ventilator 40% / 2228 40 / 2224 130 20 136/80 / 2000 94 Ventilator 40% 06/11 1933 40 06/11 1813 128 20 108/60 06/11 1648 45 06/11 1600 94 Ventilator 40% 06/11 1600 98.1 120 20 118/70 97 Ventilator 40% / 1414 45 / 1201 45 / 1200 96 Ventilator 40% / 1200 98.4 122 20 120/64 96 Ventilator 40% 06/11 1124 125 06/11 0921 117 137/75 06/11 0846 45 / 0800 98.3 122 20 130/70 96 Ventilator 40% 06/11 0800 96 Ventilator 40% Intake & Output 06/12 08/ 0000 06/11 1600 06/11 0800 06/11 0000 06/10 1600 Intake Total 670 1170 1195 1155 1168 1269 Output Total 0862 612 1696 700 550 600 Balance -520 410 -5 455 618 669 Intake, Blood 218 Product Intake, IV 150 235 110 130 195 Intake, Oral 0 0 Intake, Other 200 Intake, Tube 510 520 435 495 368 406 Feeding Intake, Tube 160 300 525 550 670 450 Irrigant Number 0 1 1 1 Bowel Movements Output, Urine 1705 803 5456 700 550 600 Patient 131.258 kg Weight Weight Bed scale Measurement Method Physical Exam: General Appearance: arousable, comfortable, intubated Ears, Nose, Throat: ET tube in place Respiratory: chest non-tender, decrease BS on left,FiO2 45% Cardiovascular: tachycardia, irregularly irregular Abdomen: normal bowel sounds, soft, non-tender Extremities: Right upper extremity 1+ edema, ecchymoses in upper extremities, hyperpigmented lower extremities, RUE with PICC line Skin: dry Neurologic/Psychiatric: arousable, follows command, intubated Current Medications: Current Medications Sig/Ric Start time Last Medication Dose Route Stop Time Status Admin Acetaminophen 650 MG Q6P PRN 05/19 0300 AC PO Acetaminophen 1,000 MG Q6P PRN 05/19 0300 AC 06/09 IV 1315 Acetylcysteine 4 ML BID 06/06 2200 AC 06/11 INH 2005 Albumin Human 25 GM Q8H 05/24 0822 DC 06/11 IV 1632 Albuterol Sulfate 3 ML EVERY 4 HRS/AWAKE 05/30 0800 AC 06/11 INH 2005 Amiodarone HCl 200 MG DAILY 06/04 1000 AC 06/11 PO 0922 Artificial Tears 2 GTT 4 TIMES/DAY PRN 05/30 0745 AC 06/06 OPH 1557 Ascorbic Acid 500 MG DAILY 05/29 1000 AC 06/11 PO 0922 Dexamethasone 40 MG DAILY 06/10 1000 AC 06/11 Sodium Chloride 50 ML IV 0917 Diltiazem HCl 60 MG Q6 06/02 1800 AC 06/12 PO 0619 Docusate Sodium 100 MG DAILY AC 05/23 0820 AC 06/12 PO 0619 Furosemide 40 MG BID 06/11 1000 AC 06/11 IV 2223 Glycerin 2 SPRAY Q2P PRN 05/27 0800 AC PO Glycerin/Mineral Oil 1 PEDRITO TID PRN 05/24 1100 AC 06/06 TOP 1557 Insulin Aspart 0 Q4H 05/21 1800 AC 06/12 SC 0647 Insulin Detemir 20 UNITS BID 06/10 1000 AC 06/11 SC 2208 Lorazepam 1 MG DAILY 06/08 1000 AC 06/11 PO 0921 Lorazepam 2 MG AT BEDTIME 06/07 2200 AC 06/11 PO 2223 Metoprolol Tartrate 100 MG BID 05/30 1000 AC 06/11 PO 2224 Multivitamins 1 TAB DAILY 05/29 1000 AC 06/11 PO 0922 Pantoprazole Sodium 40 MG BID 06/03 1000 AC 06/11 IV 2215 Polyethylene Glycol 17 GM DAILY 05/23 1000 AC 06/11 PO 0922 Potassium Chloride 40 MEQ DAILY 06/05 1000 AC 06/11 PO 0920 Results Last 24 Hours of Lab Results: Laboratory Tests 06/12 06/12 0540 0410 Blood Gas pH (7.35 - 7.45 PH) 7.46 H pCO2 (35 - 45 TORR) 35 pO2 (80 - 100 TORR) 78 L HCO3 (21 - 28 MEQ/L) 24 ABG O2 Sat (Measured) (>96.0 %) 94.0 L Carboxyhemoglobin (1.5 - 5.0 %) 1.0 L O2 Concentration % .5 Respiration Rate (BPM) 12 O2 Delivery Method VENT Vent Mode AC Expiratory Pressure (CMH2O/P) 5 Tidal Volume (CC) 480 Chemistry Sodium (137 - 145 mmol/L) 144 Potassium (3.5 - 5.1 mmol/L) 4.3 Chloride (98 - 107 mmol/L) 102 Carbon Dioxide (22 - 30 mmol/L) 27 Anion Gap (5 - 16) 14 BUN (7 - 17 mg/dL) 126 *H Creatinine (0.5 - 1.0 mg/dL) 1.2 H Estimated GFR (>60 ml/min) 43 L Glucose (65 - 99 mg/dL) 169 H Calcium (8.4 - 10.2 mg/dL) 9.3 Phosphorus (2.5 - 4.5 mg/dL) 5.1 H Magnesium (1.6 - 2.3 mg/dL) 2.3 Total Bilirubin (0.2 - 1.3 mg/dL) 0.9 AST (14 - 36 U/L) 18 ALT (9 - 52 U/L) 39 Albumin (3.5 - 5.0 g/dL) 3.7 Coagulation PT (9.4 - 12.5 SEC) 14.2 H INR (0.90 - 1.19) 1.36 H APTT (25 - 37 SEC) 31 Fibrinogen Activity (200 - 393 MG/DL) 96 L Hematology CBC w Diff NO MAN DIFF REQ WBC (4.8 - 10.8 /CUMM) 2.9 L RBC (4.20 - 5.40 /CUMM) 2.44 L Hgb (12.0 - 16.0 G/DL) 7.3 *L Hct (37 - 47 %) 22.1 L MCV (81.0 - 99.0 FL) 90.6 MCH (27.0 - 31.0 PG) 29.8 MCHC (33.0 - 37.0 G/DL) 32.8 L RDW (11.5 - 14.5 %) 17.1 H Plt Count (130 - 400 /CUMM) 36 L MPV (7.4 - 10.4 FL) 9.2 Gran % (42.2 - 75.2 %) 90.8 H Lymphocytes % (20.5 - 51.1 %) 7.1 L Monocytes % (1.7 - 9.3 %) 2.1 Eosinophils % (0 - 5 %) 0 Basophils % (0.0 - 2.0 %) 0 Absolute Granulocytes (1.4 - 6.5 /CUMM) 2.7 Absolute Lymphocytes (1.2 - 3.4 /CUMM) 0.2 L Absolute Monocytes (0.10 - 0.60 /CUMM) 0.1 Absolute Eosinophils (0.0 - 0.7 /CUMM) 0 Absolute Basophils (0.0 - 0.2 /CUMM) 0 Miscellaneous Phlebotomy Draw Site RIGHT BRACHIAL Assessment/Plan Assessment/Recommendations: Ms. Christine is an 86-year-old female with chronic ITP, HTN, HLD, MS s/p PCI with stent, DM, and atrial fibrillation who presented with new hypoxia and cough. CTA demonstrated moderate atelectasis/consolidation in the left upper and lower lobes. There was mild right base atelectasis and moderate left and small-to- moderate right pleural effusions. She was briefly in shock and required Levophed. She is currently on antibiotic. She remains in atrial fibrillation with RVR. She is on metoprolol, amiodarone, and diltiazem. She remains intubated and on FiO2 of 45%. DIC panel worsening. Fibrinogen is 96 today. Hemoglobin decreased today. Platelet count also decreasing. Dexamethasone day 3 today. This does not seem to be showing any improvement. BUN remains elevated. There is concern for slow bleeding in addition to DIC. She should receive platelet and cryo transfusions. Pancytopenia/DIC: -Continue dexamethasone 40 mg daily for now -Continue to monitor DIC: fibrinogen and INR -Continue to hold apixaban -Transfuse with cryo if fibrinogen <100 -Transfuse with 1 unit platelet -Monitor CBC and bleeding Acute hypoxic respiratory failure: -Management as per primary ICU team Atrial fibrillation with RVR: -Management as per cardiology/ICU Please call [phone] with any questions or concerns. Problem List: 1. Pancytopenia 2. Atrial fibrillation with RVR
--- NOTE | 2017-06-12 07:55 | PN- Diabetes ---
Assessment/Plan Assessment: Patient is intubated. She is on a respirator and sedated. Her steroid dose is dexamethasone 40 once a day. Sputum culture is positive for pseudomonas. Patient's antibiotics have been adjusted.. The patient is on tube feedings with Glucerna at 65 mL/h. She is receiving free water flushes via feeding tube. Unfortunately the patient's chest x-ray is not improving. Also her blood pressure is becoming low. To counteract the effects we increased her Levemir to 20 units twice a day and also increased her sliding scale. Her most recent blood sugars are in a fairly good range at 198 and 154. Patient's serum sodium is 143 BUN 109 creatinine 1.2. Chest x-ray continues to show no improvement with pulmonary vascular congestion and low volumes. Plan: Suggest continue the present insulin for now. As part of her treatment of congestive heart failure we could consider Jardiance 10 mg through the NG tube once a day. Jardiance which is a drug approved for use for treatment of diabetes is also being studied as a treatment for congestive heart failure and acts as a super diuretic. This would be unorthodox but since nothing else has improved the patient's congestive heart failure it could be considered. We would need to watch for low blood sugar as Jardiance increases the excretion of glucose from the kidney. We would also need to continue to monitor her renal function carefully. We would have to discuss this with Dr. Álvarez. Subjective Subjective: Intubated and sedated Objective Last 24 Hrs of Vital Signs/I&O Vital Signs Date Time Temp Pulse Resp B/P B/P Pulse O2 O2 Flow FiO2 Mean Ox Delivery Rate 06/12 0619 134 20 118/70 02/08 0543 50 02/ 0400 98 Ventilator 50% /08 0311 50 02/08 0030 40 02/08 0000 99 Ventilator 40% 02/08 0000 97.8 122 19 120/70 99 Ventilator 40% 02/07 2228 40 02/07 2224 130 20 136/80 02/07 2000 94 Ventilator 40% 02/07 1933 40 02/07 1813 128 20 108/60 02/07 1648 45 02/07 1600 94 Ventilator 40% 02/07 1600 98.1 120 20 118/70 97 Ventilator 40% 02/07 1414 45 02/07 1201 45 02/07 1200 96 Ventilator 40% 02/07 1200 98.4 122 20 120/64 96 Ventilator 40% 02/07 1124 125 02/07 0921 117 137/75 02/07 0846 45 / 0800 98.3 122 20 130/70 96 Ventilator 40% 06/11 0800 96 Ventilator 40% Intake & Output 06/12 799 02/ 0000 02/ 1600 Intake Total 670 1170 1195 Output Total 0566 051 0010 Balance -520 410 -5 Intake, IV 150 235 Intake, Other 200 Intake, Tube 510 520 435 Feeding Intake, Tube 160 300 525 Irrigant Number 0 Bowel Movements Output, Urine 5695 495 7624 Patient 289 lb Weight Weight Bed scale Measurement Method Vital Signs Date Time Temp Pulse Resp B/P B/P Pulse O2 O2 Flow FiO2 Mean Ox Delivery Rate 06/12 0619 134 20 118/70 06/12 0543 50 06/12 0400 98 Ventilator 50% 06/12 0311 50 06/12 0030 40 02/ 0000 99 Ventilator 40% / 0000 97.8 122 19 120/70 99 Ventilator 40% / 2228 40 02/ 2224 130 20 136/80 02/ 2000 94 Ventilator 40% 02/ 1933 40 02/ 1813 128 20 108/60 02/07 1648 45 02/ 1600 94 Ventilator 40% / 1600 98.1 120 20 118/70 97 Ventilator 40% 02/07 1414 45 02/ 1201 45 / 1200 96 Ventilator 40% 02/ 1200 98.4 122 20 120/64 96 Ventilator 40% 02/ 1124 125 02/ 0921 117 137/75 06/11 0846 45 06/11 0800 98.3 122 20 130/70 96 Ventilator 40% 06/11 0800 96 Ventilator 40% Intake & Output 06/12 799 02 0000 02/ 1600 Intake Total 670 1170 1195 Output Total 7996 081 0157 Balance -520 410 -5 Intake, IV 150 235 Intake, Other 200 Intake, Tube 510 520 435 Feeding Intake, Tube 160 300 525 Irrigant Number 0 Bowel Movements Output, Urine 3502 460 4829 Patient 289 lb Weight Weight Bed scale Measurement Method Physical Exam General Appearance: sedated, intubated Head: normal appearance Respiratory: decreased breath sounds Cardiovascular: tachycardia, irregularly irregular Abdomen: normal bowel sounds Current Medications: Current Medications Sig/Ric Start time Last Medication Dose Route Stop Time Status Admin Acetaminophen 650 MG Q6P PRN 05/19 0300 AC PO Acetaminophen 1,000 MG Q6P PRN 05/19 0300 AC 06/09 IV 1315 Acetylcysteine 4 ML BID 06/06 2200 AC 06/11 INH 2004 Albumin Human 25 GM Q8H 05/24 0822 DC 06/11 IV 1632 Albuterol Sulfate 3 ML EVERY 4 HRS/AWAKE 05/30 0800 AC 06/11 INH 2004 Amiodarone HCl 200 MG DAILY 06/04 1000 AC 06/11 PO 0922 Artificial Tears 2 GTT 4 TIMES/DAY PRN 05/30 0745 AC 06/06 OPH 1557 Ascorbic Acid 500 MG DAILY 05/29 1000 AC 06/11 PO 0922 Dexamethasone 40 MG DAILY 06/10 1000 AC 06/11 Sodium Chloride 50 ML IV 0917 Diltiazem HCl 60 MG Q6 06/02 1800 AC 06/12 PO 0619 Docusate Sodium 100 MG DAILY AC 05/23 0820 AC 06/12 PO 0619 Furosemide 40 MG BID 06/11 1000 AC 06/11 IV 2223 Glycerin 2 SPRAY Q2P PRN 05/27 0800 AC PO Glycerin/Mineral Oil 1 PEDRITO TID PRN 05/24 1100 AC 06/06 TOP 1557 Insulin Aspart 0 Q4H 05/21 1800 AC 06/12 SC 0647 Insulin Detemir 20 UNITS BID 06/10 1000 AC 06/11 SC 2208 Lorazepam 1 MG DAILY 06/08 1000 AC 06/11 PO 0921 Lorazepam 2 MG AT BEDTIME 06/07 2200 AC 06/11 PO 2223 Metoprolol Tartrate 100 MG BID 05/30 1000 AC 06/11 PO 2224 Multivitamins 1 TAB DAILY 05/29 1000 AC 06/11 PO 0922 Pantoprazole Sodium 40 MG BID 06/03 1000 AC 06/11 IV 2215 Polyethylene Glycol 17 GM DAILY 05/23 1000 AC 06/11 PO 0922 Potassium Chloride 40 MEQ DAILY 06/05 1000 AC 06/11 PO 0920 Findings Pertinent Lab/Silvano Results: Laboratory Tests 06/12 06/12 0540 0410 Blood Gas pH (7.35 - 7.45 PH) 7.46 H pCO2 (35 - 45 TORR) 35 pO2 (80 - 100 TORR) 78 L HCO3 (21 - 28 MEQ/L) 24 ABG O2 Sat (Measured) (>96.0 %) 94.0 L Carboxyhemoglobin (1.5 - 5.0 %) 1.0 L O2 Concentration % .5 Respiration Rate (BPM) 12 O2 Delivery Method VENT Vent Mode AC Expiratory Pressure (CMH2O/P) 5 Tidal Volume (CC) 480 Chemistry Sodium (137 - 145 mmol/L) 144 Potassium (3.5 - 5.1 mmol/L) 4.3 Chloride (98 - 107 mmol/L) 102 Carbon Dioxide (22 - 30 mmol/L) 27 Anion Gap (5 - 16) 14 BUN (7 - 17 mg/dL) 126 *H Creatinine (0.5 - 1.0 mg/dL) 1.2 H Estimated GFR (>60 ml/min) 43 L Glucose (65 - 99 mg/dL) 169 H Calcium (8.4 - 10.2 mg/dL) 9.3 Phosphorus (2.5 - 4.5 mg/dL) 5.1 H Magnesium (1.6 - 2.3 mg/dL) 2.3 Total Bilirubin (0.2 - 1.3 mg/dL) 0.9 AST (14 - 36 U/L) 18 ALT (9 - 52 U/L) 39 Albumin (3.5 - 5.0 g/dL) 3.7 Coagulation PT (9.4 - 12.5 SEC) 14.2 H INR (0.90 - 1.19) 1.36 H APTT (25 - 37 SEC) 31 Fibrinogen Activity (200 - 393 MG/DL) 96 L Hematology CBC w Diff NO MAN DIFF REQ WBC (4.8 - 10.8 /CUMM) 2.9 L RBC (4.20 - 5.40 /CUMM) 2.44 L Hgb (12.0 - 16.0 G/DL) 7.3 *L Hct (37 - 47 %) 22.1 L MCV (81.0 - 99.0 FL) 90.6 MCH (27.0 - 31.0 PG) 29.8 MCHC (33.0 - 37.0 G/DL) 32.8 L RDW (11.5 - 14.5 %) 17.1 H Plt Count (130 - 400 /CUMM) 36 L MPV (7.4 - 10.4 FL) 9.2 Gran % (42.2 - 75.2 %) 90.8 H Lymphocytes % (20.5 - 51.1 %) 7.1 L Monocytes % (1.7 - 9.3 %) 2.1 Eosinophils % (0 - 5 %) 0 Basophils % (0.0 - 2.0 %) 0 Absolute Granulocytes (1.4 - 6.5 /CUMM) 2.7 Absolute Lymphocytes (1.2 - 3.4 /CUMM) 0.2 L Absolute Monocytes (0.10 - 0.60 /CUMM) 0.1 Absolute Eosinophils (0.0 - 0.7 /CUMM) 0 Absolute Basophils (0.0 - 0.2 /CUMM) 0 Miscellaneous Phlebotomy Draw Site RIGHT BRACHIAL
[2017-06-12 08:00] VITALS: BP 112/70
--- NOTE | 2017-06-12 08:41 | Event Note ---
Event Note Event Note: Situation: fibrinogen 126-->[address] Hendrix this am, likely DIC, recommending transfusing cryopreciptate and platelets. H/H of 7.3/22.1 is acceptable for now, no need for PRBCs at this time.
--- NOTE | 2017-06-12 10:29 | PN- Infect Dx ---
Subjective Subjective: Afebrile on steroids. She does not offer any complaints. Objective Last 24 Hrs of Vital Signs/I&O Vital Signs Date Time Temp Pulse Resp B/P B/P Pulse O2 O2 Flow FiO2 Mean Ox Delivery Rate 06/12 926 142 135/86 06/12 0840 50 06/12 0800 98.3 118 20 112/70 98 Ventilator 50% 06/12 0800 98 Ventilator 50% 06/12 0619 134 20 118/70 06/12 0543 50 06/12 0400 98 Ventilator 50% 06/12 0311 50 06/12 0030 40 02/ 0000 99 Ventilator 40% / 0000 97.8 122 19 120/70 99 Ventilator 40% 06/11 2228 40 02 2224 130 20 136/80 02 2000 94 Ventilator 40% / 1933 40 02 1813 128 20 108/60 02/ 1648 45 / 1600 94 Ventilator 40% / 1600 98.1 120 20 118/70 97 Ventilator 40% 06/11 1414 45 02/ 1201 45 02/ 1200 96 Ventilator 40% 02/ 1200 98.4 122 20 120/64 96 Ventilator 40% / 1124 125 Intake & Output 06/12 1600 /08 0800 02/08 0000 Intake Total 670 1170 Output Total 1190 760 Balance -520 410 Intake, IV 150 Intake, Other 200 Intake, Tube 510 520 Feeding Intake, Tube 160 300 Irrigant Output, Urine 1190 760 Patient 289 lb Weight Weight Bed scale Measurement Method Physical Exam Other Physical Findings: She is awake and alert on the ventilator in no acute distress Lungs are clear Heart regular rhythm with no murmur Abdomen is soft, nontender with positive bowel sounds Extremities chronic venous stasis changes both lower extremities; PICC in the right upper extremity with no inflammation at the site Faust catheter remains in place Results Last 24 Hours of Lab Results: Laboratory Tests 06/12 06/12 0540 0410 Blood Gas pH (7.35 - 7.45 PH) 7.46 H pCO2 (35 - 45 TORR) 35 pO2 (80 - 100 TORR) 78 L HCO3 (21 - 28 MEQ/L) 24 ABG O2 Sat (Measured) (>96.0 %) 94.0 L Carboxyhemoglobin (1.5 - 5.0 %) 1.0 L O2 Concentration % .5 Respiration Rate (BPM) 12 O2 Delivery Method VENT Vent Mode AC Expiratory Pressure (CMH2O/P) 5 Tidal Volume (CC) 480 Chemistry Sodium (137 - 145 mmol/L) 144 Potassium (3.5 - 5.1 mmol/L) 4.3 Chloride (98 - 107 mmol/L) 102 Carbon Dioxide (22 - 30 mmol/L) 27 Anion Gap (5 - 16) 14 BUN (7 - 17 mg/dL) 126 *H Creatinine (0.5 - 1.0 mg/dL) 1.2 H Estimated GFR (>60 ml/min) 43 L Glucose (65 - 99 mg/dL) 169 H Calcium (8.4 - 10.2 mg/dL) 9.3 Phosphorus (2.5 - 4.5 mg/dL) 5.1 H Magnesium (1.6 - 2.3 mg/dL) 2.3 Total Bilirubin (0.2 - 1.3 mg/dL) 0.9 AST (14 - 36 U/L) 18 ALT (9 - 52 U/L) 39 Albumin (3.5 - 5.0 g/dL) 3.7 Coagulation PT (9.4 - 12.5 SEC) 14.2 H INR (0.90 - 1.19) 1.36 H APTT (25 - 37 SEC) 31 Fibrinogen Activity (200 - 393 MG/DL) 96 L Hematology CBC w Diff NO MAN DIFF REQ WBC (4.8 - 10.8 /CUMM) 2.9 L RBC (4.20 - 5.40 /CUMM) 2.44 L Hgb (12.0 - 16.0 G/DL) 7.3 *L Hct (37 - 47 %) 22.1 L MCV (81.0 - 99.0 FL) 90.6 MCH (27.0 - 31.0 PG) 29.8 MCHC (33.0 - 37.0 G/DL) 32.8 L RDW (11.5 - 14.5 %) 17.1 H Plt Count (130 - 400 /CUMM) 36 L MPV (7.4 - 10.4 FL) 9.2 Gran % (42.2 - 75.2 %) 90.8 H Lymphocytes % (20.5 - 51.1 %) 7.1 L Monocytes % (1.7 - 9.3 %) 2.1 Eosinophils % (0 - 5 %) 0 Basophils % (0.0 - 2.0 %) 0 Absolute Granulocytes (1.4 - 6.5 /CUMM) 2.7 Absolute Lymphocytes (1.2 - 3.4 /CUMM) 0.2 L Absolute Monocytes (0.10 - 0.60 /CUMM) 0.1 Absolute Eosinophils (0.0 - 0.7 /CUMM) 0 Absolute Basophils (0.0 - 0.2 /CUMM) 0 Miscellaneous Phlebotomy Draw Site RIGHT BRACHIAL Last 24 Hours of Silvano Results: No new cultures Recent Imaging Studies: Chest x-ray June 12, personally reviewed, reveals continued pulmonary vascular congestion with bibasilar densities and bilateral effusions CT of the chest, abdomen and pelvis June 10 reveals cardiomegaly, interstitial edema and small bilateral pleural effusions, with bilateral groundglass opacities; complete collapse of the left lower lobe; anasarca with small to moderate amount of ascitic fluid; mild right hydronephrosis Assessment/Plan Impression: Overall condition has deteriorated, with increasing oxygen requirements and persistent pancytopenia, possibly related to her ITP, for which she is now on Decadron, or DIC, for which she is receiving cryoprecipitate. She remains afebrile (on steroids) off antibiotics, as the Ciprofloxacin was not renewed after 4 days of treatment for possible pneumonia secondary to Pseudomonas and this can be resumed but, given her poor prognosis and recent CT findings of a collapsed left lower lobe, not clear how effective the antibiotics are. Suggestion: 1. Further management of her left lower lobe collapse per Pulmonary 2. Await decision regarding her overall level of care 3. Further management of her ITP and possible DIC per Hematology 4. Resume Ciprofloxacin pending above
[2017-06-12 12:00] VITALS: BP 112/70
[2017-06-12 16:00] VITALS: BP 128/80
[2017-06-13] VITALS: BP 124/80
[2017-06-13 04:32] LABS: ABSOLUTE GRANULOCYTE CT 3.1 /CUMM (1.4-6.5); ABSOLUTE LYMPH COUNT 0.2 /CUMM (1.2-3.4); ABSOLUTE MONOCYTE COUNT 0.1 /CUMM (0.10-0.60); HEMATOCRIT 26.2 % (37-47); MEAN CORPUSCULAR HGB 28.9 PG (27.0-31.0); MEAN CORPUSCULAR HGB CONC 32.8 G/DL (33.0-37.0); MEAN CORPUSCULAR VOLUME 88.2 FL (81.0-99.0); MEAN PLATELET VOLUME 9.6 FL (7.4-10.4); RBC DISTRIBUTION WIDTH 19.3 % (11.5-14.5); RED BLOOD CELL CT 2.97 /CUMM (4.20-5.40); WHITE BLOOD CELL COUNT 3.4 /CUMM (4.8-10.8)
[2017-06-13 05:25] LABS: PT 12.8 SEC (9.4-12.5); PTT 30 SEC (25-37)
[2017-06-13 05:27] LABS: BASOPHIL % 0 % (0.0-2.0); EOSINOPHIL % 0.1 % (0-5)
[2017-06-13 05:28] LABS: PLATELET COUNT 51 /CUMM (130-400)
[2017-06-13 05:29] LABS: GRANULOCYTE % 91.2 % (42.2-75.2)
--- NOTE | 2017-06-13 06:27 | RADIOLOGY REPORT ---
EXAMINATION: XR PORTABLE CHEST CLINICAL INFORMATION: Pulmonary edema. Tubes and lines. COMPARISON: Chest x-ray June 24, 2017 TECHNIQUE: Portable frontal view of the chest was obtained. 5:50 AM FINDINGS: Patient's rotated to left. Endotracheal tube catheter proximal 7 cm above krystal. Nasogastric tube in stomach. Heart size is enlarged. Continued increased lung markings from interstitial edema. Haziness at right lung base due to right pleural effusion. Dense consolidation left lung base but due to effusion and possible underlying infiltrate or consolidation. IMPRESSION: 1. Endotracheal tube 7 cm above krystal. 2. Nasogastric tube in stomach. 3. Continued pulmonary vascular congestion with probable bilateral pleural effusions. Probable underlying basilar infiltrate and/or atelectasis at left lung base.
--- NOTE | 2017-06-13 07:31 | PN- Resident CRCU ---
Jaron RAMOS,[facility] 06/13/17 0731: Subjective HPI/CRCU Issues: Atrial Fibrilliation Thrombocytopenia Acute Hypoxic Respiratory Failure Anemia 24 Hour Events: No acute events overnight. Plt and fibrinogen level have shown some improvement since yesterday after she received transfusion. Clinically she continues to deteriorate. She has RUE weakness which may not be acute. In the last 24 hours: Input-2334 mL, output 4400 mL After talking to the son will change her code status to comfort measures. Objective Vital Signs & I&O Last 8 Hrs of Vitals and I&O: . Exam General Appearance: awake, intubated, mild distress Head: atraumatic, normal appearance Respiratory: normal breath sounds, chest non-tender Cardiovascular: tachycardia, irregularly irregular Gastrointestinal: soft, non-tender Extremities: edema of right upper and lower extremity Cranial Nerves: normal hearing Skin: intact Skin Temp/Moisture Exam: Warm/Dry Sepsis Skin Exam (color): Normal for Ethnicity Weaning Parameters NIF: 20 Minute Volume: 14.8 Resp rate: 42 Vt: 343 Heart Rate: 123 Weaning Schedule Start Time: 1820 Minute Volume: 12.4 Resp Rate: 35 Vt: 313 Heart Rate: 130 End Time: 1900 Minute Volume: 12.2 Resp Rate: 40 Vt: 305 Heart Rate: 118 Current Medications: Current Medications Sig/Ric Start time Last Medication Dose Route Stop Time Status Admin Acetaminophen 650 MG Q6P PRN 05/19 0300 AC PO Acetaminophen 1,000 MG Q6P PRN 05/19 0300 AC 06/09 IV 1315 Acetylcysteine 4 ML BID 06/06 2200 DC 06/12 INH 0819 Albuterol Sulfate 3 ML EVERY 4 HRS/AWAKE 05/30 0800 AC 06/13 INH 0818 Amiodarone HCl 200 MG DAILY 06/04 1000 AC 06/13 PO 1005 Artificial Tears 2 GTT 4 TIMES/DAY PRN 05/30 0745 AC 06/06 OPH 1557 Ascorbic Acid 500 MG DAILY 05/29 1000 AC 06/13 PO 1004 Ciprofloxacin 500 MG DAILY 06/13 1000 AC PO 06/17 0959 Ciprofloxacin 500 MG ONCE ONE 06/12 1615 DC 06/12 PO 06/12 1616 1851 Ciprofloxacin 500 MG DAILY 06/12 1438 DC PO 06/16 1437 Ciprofloxacin 500 MG 0600,1800 06/07 0600 DC 06/10 PO 06/11 0559 1738 Dexamethasone 40 MG DAILY 06/10 1000 DC 06/13 Sodium Chloride 50 ML IV 1003 Diltiazem HCl 60 MG Q6 06/02 1800 AC 06/13 PO 0456 Diphenhydramine HCl 50 MG ONCE ONE 06/12 1600 DC 06/12 IV 06/12 1601 1813 Docusate Sodium 100 MG DAILY AC 05/23 0820 AC 06/13 PO 0610 Furosemide 40 MG BID 06/11 1000 AC 06/13 IV 1005 Glycerin 2 SPRAY Q2P PRN 05/27 0800 AC PO Glycerin/Mineral Oil 1 PEDRITO TID PRN 05/24 1100 AC 06/06 TOP 1557 Insulin Aspart 14 UNITS .STK-MED ONE 06/13 0216 DC SC 06/13 0217 Insulin Aspart 0 Q4H 05/21 1800 AC 06/13 SC 1022 Insulin Detemir 20 UNITS BID 06/10 1000 AC 06/13 SC 1014 Lorazepam 1 MG DAILY 06/08 1000 AC 06/13 PO 1004 Lorazepam 2 MG AT BEDTIME 06/07 2200 AC 06/12 PO 2217 Metoprolol Tartrate 100 MG BID 05/30 1000 AC 06/13 PO 1004 Multivitamins 1 TAB DAILY 05/29 1000 AC 06/13 PO 1004 Pantoprazole Sodium 40 MG BID 06/03 1000 AC 06/13 IV 1005 Polyethylene Glycol 17 GM DAILY 05/23 1000 AC 06/12 PO 0926 Potassium Chloride 40 MEQ DAILY 06/05 1000 AC 06/13 PO 1005 Prednisone 80 MG DAILY 06/14 1000 UNVr PO Impression/Plan Impression/Problem List Impression: 86 year old woman with past medical history of hypertension, hyperlipidemia, [place] s/p PCI with stent, diabetes mellitus, and restless leg syndrome, history of atrial fibrillation with anticoagulation on hold due to severe thrombocytopenia was sent in from extended care facility for hypoxia, leukocytosis and productive cough. She was admitted on telemetry floor and transfered to ICU after patient desaturated became unresponsive. Assessment 1. Acute hypoxic respiratory failure likely secondary to HCAP: 2. Atrial Fibrilliation: 3. Immune Thrombocytopenia: 4. GARCÍA on CKD: 5. Diabetes Mellitus: 6. Lower Extremity Skin Changes: 7. History of restless leg syndrome: Plan: * Discontinue all non essential medications. * Extubate * Morphine 2mg q2 prn to ease breathing * Ativan 2mg q2 prn for agitation * Will pursue hospice evaluation if necessary * Code Status: Comfort Measures Problem List: 1. A-fib Pain Ratin Tomorrow's Labs & Rationales: CBC, ICU bundle, DIC panel Plan DVT/Prophylaxis: Jordi Trujillo MD 06/13/17 1139: Attending MD Review Statement Attending Sign Off Attending Cosign Statement: I have: examined this patient, reviewed avalbl EMR data, personally reviewd images, discussd w/resident/PA/TONG HOOKER, discussed mgmt plan w/ida, discussed mgmt plan w/CM, discussed mgmt plan w/pt, agreed w/resident/PA/TONG HOOKER, amended to note. Other Findings: Jordi Lopez M.D. have examined this patient, reviewed available EMR data, personally reviewed images, discussed with resident/PA/TONG HOOKER, discussed management plan with housestaff and nursing staff, discussed managment plan all of healthcare providers, discussed management plan with patient and/or family, agreed with resident/PA/TONG HOOKER. The past history and parts of the chart have been autopopulated. Impression 86 year old woman resolved septic shock a.fib RVR acute hypoxemic respiratory failure GARCÍA improved anemia/throbocytopenia Plan -cont mechanical ventilation, with a plan for extubation shortly per family -ciprofloxacin -cardiology, ID f/u -f/u hematology recommendations, stress steroids can be tapered per heme -endocrinology appreciated -nephrology consultation appreciated DVT prophylaxis at all times TTS 35 min Pain Ratin Tomorrow's Labs & Rationales: CBC, ICU bundle, DIC panel Plan DVT/Prophylaxis: Jordi Trujillo MD 06/13/17 1139: Attending MD Review Statement Attending Sign Off Attending Cosign Statement: I have: examined this patient, reviewed avalbl EMR data, personally reviewd images, discussd w/resident/PA/TONG HOOKER, discussed mgmt plan w/ida, discussed mgmt plan w/CM, discussed mgmt plan w/pt, agreed w/resident/PA/TONG HOOKER, amended to note. Other Findings: Jordi Lopez M.D. have examined this patient, reviewed available EMR data, personally reviewed images, discussed with resident/PA/TONG HOOKER, discussed management plan with housestaff and nursing staff, discussed managment plan all of healthcare providers, discussed management plan with patient and/or family, agreed with resident/PA/TONG HOOKER. The past history and parts of the chart have been autopopulated. Impression 86 year old woman resolved septic shock a.fib RVR acute hypoxemic respiratory failure GARCÍA improved anemia/throbocytopenia Plan -cont mechanical ventilation, with a plan for extubation shortly per family -ciprofloxacin -cardiology, ID f/u -f/u hematology recommendations, stress steroids can be tapered per heme -endocrinology appreciated -nephrology consultation appreciated DVT prophylaxis at all times TTS 35 min
--- NOTE | 2017-06-13 07:35 | PN- Cardiology ---
Subjective Subjective: Patient awake, appears tired Objective Vital Signs and I&Os Vital Signs Date Time Temp Pulse Resp B/P B/P Pulse O2 O2 Flow FiO2 Mean Ox Delivery Rate 06/13 0636 40 06/13 0456 144 18 154/75 06/13 0400 96 Ventilator 40% 06/13 0340 40 06/13 0057 40 06/13 0000 98 Ventilator 40% 06/13 0000 97.8 110 20 124/80 98 Ventilator 40% 06/12 2333 104 16 126/83 06/12 2230 40 06/12 2217 135 19 121/87 06/12 2000 97 Ventilator 45% 06/12 1915 40 06/12 1850 98.0 131 30 144/75 06/12 1632 45 06/12 1600 98 Ventilator 45% 06/12 1600 97.8 120 24 128/80 98 Ventilator 45% 06/12 1435 45 06/12 1236 45 06/12 1200 94 Ventilator 45% 06/12 1200 97.5 118 18 112/70 94 Ventilator 45% 06/12 1134 121 121/88 06/12 0927 142 135/86 06/12 0840 50 08 0800 98.3 118 20 112/70 98 Ventilator 50% 06/12 0800 98 Ventilator 50% Intake & Output 06/13 0806/13 0000 06/12 1600 06/12 0800 06/12 0000 06/11 1600 Intake Total 900 1390 9240 091 3699 1195 Output Total 1350 1600 1450 9469 691 3755 Balance -450 -210 -206 -520 410 -5 Intake, Blood 350 Product Intake, IV 100 366 150 235 Intake, Other 420 200 Intake, Tube 480 520 378 510 520 435 Feeding Intake, Tube 420 500 160 300 525 Irrigant Number 0 0 Bowel Movements Output, Urine 1350 1600 1450 6706 803 7090 Patient 282 lb 289 lb Weight Weight Bed scale Bed scale Measurement Method Physical Exam: HEENT-PERRLA Neck-JVP normal, no bruits Lungs-clear anteriorly Heart-S1S2 irregular, no bruits Abdomen-soft, BS+, no organomegaly Extr-dermatitis, trace edema, no cyanosis Neuro-right hand weak, 1/5 mobility Skin-no rash Current Medications: Current Medications Sig/Ric Start time Last Medication Dose Route Stop Time Status Admin Acetaminophen 650 MG Q6P PRN 05/19 0300 AC PO Acetaminophen 1,000 MG Q6P PRN 05/19 0300 AC 06/09 IV 1315 Acetylcysteine 4 ML BID 06/06 2200 DC 06/12 INH 0819 Albuterol Sulfate 3 ML EVERY 4 HRS/AWAKE 05/30 0800 AC 06/12 INH 2013 Amiodarone HCl 200 MG DAILY 06/04 1000 AC 06/12 PO 0927 Artificial Tears 2 GTT 4 TIMES/DAY PRN 05/30 0745 AC 06/06 OPH 1557 Ascorbic Acid 500 MG DAILY 05/29 1000 AC 06/12 PO 0927 Ciprofloxacin 500 MG DAILY 06/13 1000 AC PO 06/17 0959 Ciprofloxacin 500 MG ONCE ONE 06/12 1615 DC 06/12 PO 06/12 1616 1851 Ciprofloxacin 500 MG DAILY 06/12 1438 DC PO 06/16 1437 Ciprofloxacin 500 MG 0600,1800 06/07 0600 DC 06/10 PO 06/11 0559 1738 Dexamethasone 40 MG DAILY 06/10 1000 AC 06/12 Sodium Chloride 50 ML IV 1024 Diltiazem HCl 60 MG Q6 06/02 1800 AC 06/13 PO 0456 Diphenhydramine HCl 50 MG ONCE ONE 06/12 1600 DC 06/12 IV 06/12 1601 1813 Docusate Sodium 100 MG DAILY AC 05/23 0820 AC 06/13 PO 0610 Furosemide 40 MG BID 06/11 1000 AC 06/12 IV 2217 Glycerin 2 SPRAY Q2P PRN 05/27 0800 AC PO Glycerin/Mineral Oil 1 PEDRITO TID PRN 05/24 1100 AC 06/06 TOP 1557 Insulin Aspart 0 Q4H 05/21 1800 AC 06/13 SC 0610 Insulin Detemir 20 UNITS BID 06/10 1000 AC 06/12 SC 2216 Lorazepam 1 MG DAILY 06/08 1000 AC 06/12 PO 0926 Lorazepam 2 MG AT BEDTIME 06/07 2200 AC 06/12 PO 2217 Metoprolol Tartrate 100 MG BID 05/30 1000 AC 06/12 PO 2217 Multivitamins 1 TAB DAILY 05/29 1000 AC 06/12 PO 0928 Pantoprazole Sodium 40 MG BID 06/03 1000 AC 06/12 IV 2217 Polyethylene Glycol 17 GM DAILY 05/23 1000 AC 06/12 PO 0926 Potassium Chloride 40 MEQ DAILY 06/05 1000 AC 06/12 PO 0926 Results Last 48 Hrs of Labs/Mics: Laboratory Tests 06/13/17 0600: pH 7.48 H, pCO2 35, pO2 67 L, HCO3 25, ABG O2 Sat (Measured) 93.0 L, P-50 ( Temp Corrected) N, Carboxyhemoglobin 0.7 L, O2 Concentration % .40, Respiration Rate 12, O2 Delivery Method VENT, Vent Mode A/C, Expiratory Pressure 5, Tidal Volume 480, Phlebotomy Draw Site LEFT RADIAL 06/13/17 0356: Anion Gap 17 H, Estimated GFR 47 L, Glucose 160 H, Calcium 9.3, Phosphorus 5.6 H, Magnesium 2.3, Total Bilirubin 1.1, AST 24, ALT 52, Albumin 3.6, PT 12.8 H, INR 1.22 H, APTT 30, Fibrinogen Activity 153 L, CBC w Diff NO MAN DIFF REQ , RBC 2.97 L, MCV 88.2, MCH 28.9, MCHC 32.8 L, RDW 19.3 H, MPV 9.6, Gran % 91.2 H, Lymphocytes % 5.1 L, Monocytes % 3.6, Eosinophils % 0.1, Basophils % 0 , Absolute Granulocytes 3.1, Absolute Lymphocytes 0.2 L, Absolute Monocytes 0.1 , Absolute Eosinophils 0.0, Absolute Basophils 0.0 06/12/17 0540: pH 7.46 H, pCO2 35, pO2 78 L, HCO3 24, ABG O2 Sat (Measured) 94.0 L, Carboxyhemoglobin 1.0 L, O2 Concentration % .5, Respiration Rate 12, O2 Delivery Method VENT, Vent Mode AC, Expiratory Pressure 5, Tidal Volume 480, Phlebotomy Draw Site RIGHT BRACHIAL 06/12/17 0410: Anion Gap 14, Estimated GFR 43 L, Glucose 169 H, Calcium 9.3, Phosphorus 5.1 H, Magnesium 2.3, Total Bilirubin 0.9, AST 18, ALT 39, Albumin 3.7, PT 14.2 H, INR 1.36 H, APTT 31, Fibrinogen Activity 96 L, CBC w Diff NO MAN DIFF REQ, RBC 2.44 L, MCV 90.6, MCH 29.8, MCHC 32.8 L, RDW 17.1 H, MPV 9.2, Gran % 90.8 H, Lymphocytes % 7.1 L, Monocytes % 2.1, Eosinophils % 0, Basophils % 0, Absolute Granulocytes 2.7, Absolute Lymphocytes 0.2 L, Absolute Monocytes 0.1, Absolute Eosinophils 0, Absolute Basophils 0 Assessment/Plan Assessment/Plan 1. Acute hypoxic respiratory failure secondary to pneumonia, possible HFpEF with bilateral pleural effusions (only small effusions by CT, ?isc edema) 2. atrial fibrillation, on oral cardizem, amiodarone, metoprolol, rate acceptable 3. GARCÍA-BUN keeps increasing creatinine remains stable 4.Pancytopenia worse today 5.Possible right CVA Plan: I spoke with son Ken regarding extubation. Her condition is not improving and chance for recovery is low. Son agrees with extubation today. Continue telemetry? No
[2017-06-13 08:00] VITALS: BP 130/70
--- NOTE | 2017-06-13 08:51 | PN- Hematology ---
Subjective Subjective: She remains intubated. She has no new pain. Review of Systems: Limited secondary to intubation. She denies any pain. Objective Vital Signs and I&Os Vital Signs Date Time Temp Pulse Resp B/P B/P Pulse O2 O2 Flow FiO2 Mean Ox Delivery Rate 06/13 0636 40 06/13 0456 144 18 154/75 06/13 0400 96 Ventilator 40% 06/13 0340 40 06/13 0057 40 02 0000 98 Ventilator 40% 06/13 0000 97.8 110 20 124/80 98 Ventilator 40% 06/12 2333 104 16 126/83 06/12 2230 40 06/12 2217 135 19 121/87 06/12 2000 97 Ventilator 45% 06/12 1915 40 06/12 1850 98.0 131 30 144/75 06/12 1632 45 06/12 1600 98 Ventilator 45% 06/12 1600 97.8 120 24 128/80 98 Ventilator 45% 06/12 1435 45 06/12 1236 45 06/12 1200 94 Ventilator 45% 06/12 1200 97.5 118 18 112/70 94 Ventilator 45% 06/12 1134 121 121/88 06/12 0927 142 135/86 Intake & Output 06/13 1600 06/13 0800 02/09 0000 / 1600 06/12 0800 06/12 0000 Intake Total 900 1390 9259 524 7696 Output Total 1350 1600 1450 1190 760 Balance -450 -210 -206 -520 410 Intake, Blood 350 Product Intake, IV 100 366 150 Intake, Other 420 200 Intake, Tube 480 520 378 510 520 Feeding Intake, Tube 420 500 160 300 Irrigant Number 0 Bowel Movements Output, Urine 1350 1600 1450 1190 760 Patient 127.913 kg 131.088 kg Weight Weight Bed scale Bed scale Measurement Method Physical Exam: General Appearance: arousable, comfortable, intubated Ears, Nose, Throat: ET tube in place Respiratory: chest non-tender, decrease BS on left,FiO2 45% Cardiovascular: tachycardia, irregularly irregular Abdomen: normal bowel sounds, soft, non-tender Extremities: Right upper extremity 1+ edema, ecchymoses in upper extremities, hyperpigmented lower extremities, RUE with PICC line Skin: dry Neurologic/Psychiatric: arousable, follows command, intubated, unable to move RUE Current Medications: Current Medications Sig/Ric Start time Last Medication Dose Route Stop Time Status Admin Acetaminophen 650 MG Q6P PRN 05/19 0300 AC PO Acetaminophen 1,000 MG Q6P PRN 05/19 0300 AC 06/09 IV 1315 Acetylcysteine 4 ML BID 06/06 2200 DC 06/12 INH 0819 Albuterol Sulfate 3 ML EVERY 4 HRS/AWAKE 05/30 0800 AC 06/13 INH 0818 Amiodarone HCl 200 MG DAILY 06/04 1000 AC 06/12 PO 0927 Artificial Tears 2 GTT 4 TIMES/DAY PRN 05/30 0745 AC 06/06 OPH 1557 Ascorbic Acid 500 MG DAILY 05/29 1000 AC 06/12 PO 0927 Ciprofloxacin 500 MG DAILY 06/13 1000 AC PO 06/17 0959 Ciprofloxacin 500 MG ONCE ONE 06/12 1615 DC 06/12 PO 06/12 1616 1851 Ciprofloxacin 500 MG DAILY 06/12 1438 DC PO 06/16 1437 Ciprofloxacin 500 MG 0600,1800 06/07 0600 DC 06/10 PO 06/11 0559 1738 Dexamethasone 40 MG DAILY 06/10 1000 AC 06/12 Sodium Chloride 50 ML IV 1024 Diltiazem HCl 60 MG Q6 06/02 1800 AC 06/13 PO 0456 Diphenhydramine HCl 50 MG ONCE ONE 06/12 1600 DC 06/12 IV 06/12 1601 1813 Docusate Sodium 100 MG DAILY AC 05/23 0820 AC 06/13 PO 0610 Furosemide 40 MG BID 06/11 1000 AC 06/12 IV 2217 Glycerin 2 SPRAY Q2P PRN 05/27 0800 AC PO Glycerin/Mineral Oil 1 PEDRITO TID PRN 05/24 1100 AC 06/06 TOP 1557 Insulin Aspart 0 Q4H 05/21 1800 AC 06/13 SC 0610 Insulin Detemir 20 UNITS BID 06/10 1000 AC 06/12 SC 2216 Lorazepam 1 MG DAILY 06/08 1000 AC 06/12 PO 0926 Lorazepam 2 MG AT BEDTIME 06/07 2200 AC 06/12 PO 221 Metoprolol Tartrate 100 MG BID 05/30 1000 AC 06/12 PO 2217 Multivitamins 1 TAB DAILY 05/29 1000 AC 06/12 PO 0928 Pantoprazole Sodium 40 MG BID 06/03 1000 AC 06/12 IV 2217 Polyethylene Glycol 17 GM DAILY 05/23 1000 AC 06/12 PO 0926 Potassium Chloride 40 MEQ DAILY 06/05 1000 AC 06/12 PO 925 Results Last 24 Hours of Lab Results: Laboratory Tests 06/13 06/13 0600 0356 Blood Gas pH (7.35 - 7.45 PH) 7.48 H pCO2 (35 - 45 TORR) 35 pO2 (80 - 100 TORR) 67 L HCO3 (21 - 28 MEQ/L) 25 ABG O2 Sat (Measured) (>96.0 %) 93.0 L P-50 (Temp Corrected) N Carboxyhemoglobin (1.5 - 5.0 %) 0.7 L O2 Concentration % .40 Respiration Rate (BPM) 12 O2 Delivery Method VENT Vent Mode A/C Expiratory Pressure (CMH2O/P) 5 Tidal Volume (CC) 480 Chemistry Sodium (137 - 145 mmol/L) 144 Potassium (3.5 - 5.1 mmol/L) 4.3 Chloride (98 - 107 mmol/L) 101 Carbon Dioxide (22 - 30 mmol/L) 26 Anion Gap (5 - 16) 17 H BUN (7 - 17 mg/dL) 135 *H Creatinine (0.5 - 1.0 mg/dL) 1.1 H Estimated GFR (>60 ml/min) 47 L Glucose (65 - 99 mg/dL) 160 H Calcium (8.4 - 10.2 mg/dL) 9.3 Phosphorus (2.5 - 4.5 mg/dL) 5.6 H Magnesium (1.6 - 2.3 mg/dL) 2.3 Total Bilirubin (0.2 - 1.3 mg/dL) 1.1 AST (14 - 36 U/L) 24 ALT (9 - 52 U/L) 52 Albumin (3.5 - 5.0 g/dL) 3.6 Coagulation PT (9.4 - 12.5 SEC) 12.8 H INR (0.90 - 1.19) 1.22 H APTT (25 - 37 SEC) 30 Fibrinogen Activity (200 - 393 MG/DL) 153 L Hematology CBC w Diff NO MAN DIFF REQ WBC (4.8 - 10.8 /CUMM) 3.4 L RBC (4.20 - 5.40 /CUMM) 2.97 L Hgb (12.0 - 16.0 G/DL) 8.6 L Hct (37 - 47 %) 26.2 L MCV (81.0 - 99.0 FL) 88.2 MCH (27.0 - 31.0 PG) 28.9 MCHC (33.0 - 37.0 G/DL) 32.8 L RDW (11.5 - 14.5 %) 19.3 H Plt Count (130 - 400 /CUMM) 51 L MPV (7.4 - 10.4 FL) 9.6 Gran % (42.2 - 75.2 %) 91.2 H Lymphocytes % (20.5 - 51.1 %) 5.1 L Monocytes % (1.7 - 9.3 %) 3.6 Eosinophils % (0 - 5 %) 0.1 Basophils % (0.0 - 2.0 %) 0 Absolute Granulocytes (1.4 - 6.5 /CUMM) 3.1 Absolute Lymphocytes (1.2 - 3.4 /CUMM) 0.2 L Absolute Monocytes (0.10 - 0.60 /CUMM) 0.1 Absolute Eosinophils (0.0 - 0.7 /CUMM) 0.0 Absolute Basophils (0.0 - 0.2 /CUMM) 0.0 Miscellaneous Phlebotomy Draw Site LEFT RADIAL Assessment/Plan Assessment/Recommendations: Ms. Christine is an 86-year-old female with chronic ITP, HTN, HLD, [place] s/p PCI with stent, DM, and atrial fibrillation who presented with new hypoxia and cough. CTA demonstrated moderate atelectasis/consolidation in the left upper and lower lobes. There was mild right base atelectasis and moderate left and small-to- moderate right pleural effusions. She was briefly in shock and required Levophed. She is currently on antibiotic. She remains in atrial fibrillation with RVR. She is on metoprolol, amiodarone, and diltiazem. She remains intubated and on FiO2 of 45%. DIC panel improved after cryo transfusion yesterday. She also received 1 unit pRBC and 1 unit of pooled platelet. She is on day 4 of dexamethasone 40 mg. She should go back to prednisone 80 mg daily after today. She does not seem to showing much response. It is unlikely ITP which is causing her thrombocytopenia. WBC is improving. She does not seem to be able to move her RUE. It is questionable if this is new. She may need repeat CT head. Last one in May was negative. Pancytopenia/DIC: -Go back to prednisone 80 mg daily after dexamethasone dosing today -Continue to monitor DIC: fibrinogen and INR -Continue to hold apixaban -Transfuse with cryo if fibrinogen <100 -Monitor CBC and bleeding RUE weakness: -CT head Acute hypoxic respiratory failure: -Management as per primary ICU team Atrial fibrillation with RVR: -Management as per cardiology/ICU Please call [phone] with any questions or concerns. Problem List: 1. Pancytopenia 2. Atrial fibrillation with RVR
--- NOTE | 2017-06-13 11:12 | PN- Infect Dx ---
Subjective Subjective: Afebrile on steroids. She does not offer any complaints. Objective Last 24 Hrs of Vital Signs/I&O Vital Signs Date Time Temp Pulse Resp B/P B/P Pulse O2 O2 Flow FiO2 Mean Ox Delivery Rate 06/13 1005 145 151/92 06/13 1004 145 151/92 06/13 0830 30 06/13 0800 98.1 126 14 130/70 98 Ventilator 40% 06/13 0800 98 Ventilator 40% 06/13 0636 40 06/13 0456 144 18 154/75 06/13 0400 96 Ventilator 40% 06/13 0340 40 06/13 0057 40 02 0000 98 Ventilator 40% 06/13 0000 97.8 110 20 124/80 98 Ventilator 40% 06/12 2333 104 16 126/83 06/12 2230 40 06/12 2217 135 19 121/87 06/12 2000 97 Ventilator 45% 06/12 1915 40 06/12 1850 98.0 131 30 144/75 08 1632 45 06/12 1600 98 Ventilator 45% 06/12 1600 97.8 120 24 128/80 98 Ventilator 45% / 1435 45 02/08 1236 45 / 1200 94 Ventilator 45% /08 1200 97.5 118 18 112/70 94 Ventilator 45% 08 1134 121 121/88 Intake & Output 06/13 1600 06/13 0800 06/13 0000 Intake Total 900 1390 Output Total 1350 1600 Balance -450 -210 Intake, Blood 350 Product Intake, IV 100 Intake, Other 420 Intake, Tube 480 520 Feeding Intake, Tube 420 Irrigant Output, Urine 1350 1600 Patient 282 lb Weight Weight Bed scale Measurement Method Physical Exam Other Physical Findings: She is awake and alert on the ventilator in no acute distress Lungs are clear Heart regular rhythm with no murmur Abdomen is soft, nontender with positive bowel sounds Extremities chronic venous stasis changes both lower extremities; PICC in the right upper extremity with no inflammation at the site Neuro diffuse weakness of all extremities Faust catheter remains in place Results Last 24 Hours of Lab Results: Laboratory Tests 06/13 06/13 0600 0356 Blood Gas pH (7.35 - 7.45 PH) 7.48 H pCO2 (35 - 45 TORR) 35 pO2 (80 - 100 TORR) 67 L HCO3 (21 - 28 MEQ/L) 25 ABG O2 Sat (Measured) (>96.0 %) 93.0 L P-50 (Temp Corrected) N Carboxyhemoglobin (1.5 - 5.0 %) 0.7 L O2 Concentration % .40 Respiration Rate (BPM) 12 O2 Delivery Method VENT Vent Mode A/C Expiratory Pressure (CMH2O/P) 5 Tidal Volume (CC) 480 Chemistry Sodium (137 - 145 mmol/L) 144 Potassium (3.5 - 5.1 mmol/L) 4.3 Chloride (98 - 107 mmol/L) 101 Carbon Dioxide (22 - 30 mmol/L) 26 Anion Gap (5 - 16) 17 H BUN (7 - 17 mg/dL) 135 *H Creatinine (0.5 - 1.0 mg/dL) 1.1 H Estimated GFR (>60 ml/min) 47 L Glucose (65 - 99 mg/dL) 160 H Calcium (8.4 - 10.2 mg/dL) 9.3 Phosphorus (2.5 - 4.5 mg/dL) 5.6 H Magnesium (1.6 - 2.3 mg/dL) 2.3 Total Bilirubin (0.2 - 1.3 mg/dL) 1.1 AST (14 - 36 U/L) 24 ALT (9 - 52 U/L) 52 Albumin (3.5 - 5.0 g/dL) 3.6 Coagulation PT (9.4 - 12.5 SEC) 12.8 H INR (0.90 - 1.19) 1.22 H APTT (25 - 37 SEC) 30 Fibrinogen Activity (200 - 393 MG/DL) 153 L Hematology CBC w Diff NO MAN DIFF REQ WBC (4.8 - 10.8 /CUMM) 3.4 L RBC (4.20 - 5.40 /CUMM) 2.97 L Hgb (12.0 - 16.0 G/DL) 8.6 L Hct (37 - 47 %) 26.2 L MCV (81.0 - 99.0 FL) 88.2 MCH (27.0 - 31.0 PG) 28.9 MCHC (33.0 - 37.0 G/DL) 32.8 L RDW (11.5 - 14.5 %) 19.3 H Plt Count (130 - 400 /CUMM) 51 L MPV (7.4 - 10.4 FL) 9.6 Gran % (42.2 - 75.2 %) 91.2 H Lymphocytes % (20.5 - 51.1 %) 5.1 L Monocytes % (1.7 - 9.3 %) 3.6 Eosinophils % (0 - 5 %) 0.1 Basophils % (0.0 - 2.0 %) 0 Absolute Granulocytes (1.4 - 6.5 /CUMM) 3.1 Absolute Lymphocytes (1.2 - 3.4 /CUMM) 0.2 L Absolute Monocytes (0.10 - 0.60 /CUMM) 0.1 Absolute Eosinophils (0.0 - 0.7 /CUMM) 0.0 Absolute Basophils (0.0 - 0.2 /CUMM) 0.0 Miscellaneous Phlebotomy Draw Site LEFT RADIAL Last 24 Hours of Silvano Results: No new cultures Recent Imaging Studies: Chest x-ray June 13, personally reviewed, reveals continued pulmonary vascular congestion with bibasilar densities Assessment/Plan Impression: Condition remains poor, though stable, with a slight decrease in her oxygen requirements and improvement in her blood counts status post transfusion of cryoprecipitate as well as blood and platelets yesterday for possible DIC or an exacerbation of her ITP, for which she is remains on Decadron. She remains afebrile (on steroids) now back on Ciprofloxacin for possible pneumonia secondary to Pseudomonas. She is scheduled for extubation later today, with no plans for reintubation if her respiratory status deteriorates. Suggestion: 1. Await extubation later today 2. Further management of her ITP and possible DIC per Hematology 3. Continue Ciprofloxacin
[2017-06-13 12:16] VITALS: BP 135/86
--- NOTE | 2017-06-13 12:55 | Event Note ---
Event Note Event Note: Situation: Change in code status to Comfort Measures Only Brief: After discussing with the son various goals of care, it was decided to change the code status to comfort measures only. The son expresses that he would like his mother to be comfortable without any further additional measures. 7pm: The patient has been made hospice after further discussion with the son. The patient will stay in the ICU until a bed is available in their unit. As per conversation with the hospice nurse, for now morphine and lorazepam can be continued.
--- NOTE | 2017-06-13 15:53 | Discharge Summary ---
Visit Information Visit Dates Admission Date: 05/19/17 Discharge Date: 06/14/17 Hospital Course Course Attending Physician: Jordi Pyle MD Primary Care Physician: Kranthi RAMOS,[facility] Course: Ms Christine was a 86 year old woman with past medical history of hypertension, hyperlipidemia, ME s/p PCI with stent, diabetes mellitus, restless leg syndrome, history of atrial fibrillation with anticoagulation with Eliquis was sent in from extended care facility for hypoxia, leukocytosis and productive cough. Below is a list of conditions she was admitted and treated for: Acute hypoxic respiratory failure likely secondary to HCAP: * Continue Ciprofloxacin 500mg BID. * Her CXR shows persistent pulmonary vascular congestion and bilateral pleural effusions. She appears to have chronic left lower lobe collapse. * ID recs appreciated. * She has a rising BUN, which is concerning for a internal GI bleed. Her last stools were guiac positive. However, per GI the rise in BUN is not consistent with acute active bleeding. * Goals of care reviewed with family. Will give her a trial of lasix for another day perhaps and may extubate her if son agrees. Atrial Fibrilliation: She was diagnosed with Atrial Fibrilliation in April. Will continue metoprolol 100mg BID. * Continue oral Amiodarone at 200mg QD. * Continue Cardizem 60mg q6. Can be decreased to 30mg if not tolerated by blood pressure. * Eliquis on hold. * Echo - Normal left ventricular ejection fraction visually estimated at > 60% . Immune Thrombocytopenia: * Her platelets have shown a good response to transfusion but continue to downtrend. * Continue dexamethasone 40mg IV daily. * s/p 4 unit transfusion of platelets today (05/22, 06/09, 06/10, 06/12). 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 * Will continue to follow DIC panel. * Can transfuse Plt or IVIG if Plt <30K and actively bleeding. * Transfused cryoprecipitate today as fibrinogen <100 GARCÍA on CKD: /resolved * Cr 1.2 today. * Was likely contrast induced nephropathy initially. * Nephro recs appreciated. * Strict I&Os. Diabetes Mellitus: She had an OG tube through which she was administered Glucerna 1.2. She was maintained on an Insulin Sliding scale + Levemir with Accucheks. Lower Extremity Skin Changes: She had stasis skin changes of both legs. She was evaluated by vascular surgery and there was no clinical evidence of critical leg ischemia. Compression and moisturization was advised; Lubriderm was applied to the affected extremities with considerable improvement in skin condition. History of restless leg syndrome: Patient had previously been on Sinemet and Lyrica for her restless leg. These medications were put on hold. DVT Prophylaxis: ALPS were applied Allergies: Coded Allergies: codeine (SOB 07/09/15) Significant Procedures: SERVICE DATE: 06/13/17 EXAM TYPE: RAD - XRY-PORTABLE CHEST XRAY FINDINGS: Patient's rotated to left. Endotracheal tube catheter proximal 7 cm above krystal. Nasogastric tube in stomach. Heart size is enlarged. Continued increased lung markings from interstitial edema. Haziness at right lung base due to right pleural effusion. Dense consolidation left lung base but due to effusion and possible underlying infiltrate or consolidation. IMPRESSION: 1. Endotracheal tube 7 cm above krystal. 2. Nasogastric tube in stomach. 3. Continued pulmonary vascular congestion with probable bilateral pleural effusions. Probable underlying basilar infiltrate and/or atelectasis at left lung base. SERVICE DATE: 06/07/17 EXAM TYPE: RAD - XRY-PORTABLE CHEST XRAY FINDINGS: Evaluation is limited due to patient rotation, low lung volumes and large body habitus. Endotracheal tube tip is unchanged in position with tip at level of aortic arch, probably about 4 to 5 cm above the krystal. Enteric tube courses into the abdomen with tip not included. Right subclavian PICC line tip is poorly visualized but appears to be in the deep SVC. The cardiomediastinal silhouette remains enlarged. Calcification of the aortic arch is seen. Lobe lung volumes are noted with persistent right mid and lower lung and left lower lung opacities, unchanged from prior exam, likely related to pulmonary edema and layering pleural effusions and associated bibasilar atelectasis. No pneumothorax is seen. Bony structures are grossly unremarkable. IMPRESSION: Limited assessment. 1. Endotracheal tube tip approximately 4 to 5 cm above the krystal. 2. Enteric tube courses into the abdomen with tip not included. 3. PICC line tip in deep SVC region. 4. No significant change in pulmonary edema, effusions and bibasilar opacities when aligned for differences in technique. SERVICE DATE: 06/03/17 EXAM TYPE: RAD - XRY-PORTABLE CHEST XRAY FINDINGS: Generalized hazy density is present over the entire right hemithorax, this is new since the prior study. Increased density in the left retrocardiac region is noted without visualization of the left hemidiaphragm, similar to the prior study; patchy densities in the left upper lung are also present, not significantly changed compared to the prior study. Note the patient is rotated to the left. An endotracheal tube is present, the tip is located approximately 5 cm proximal to the level of the krystal. An NG tube is present, the tip extends inferiorly off the edge of the image in the upper abdomen. IMPRESSION: 1. Hazy density projecting over the entire right hemithorax, findings are as concerning for pulmonary edema, increased since the prior study. 2. Remaining densities in the left hemithorax overall stable. SERVICE DATE: 05/28/17 EXAM TYPE: RAD - XRY-PORTABLE CHEST XRAY FINDINGS: An endotracheal tube is in place. The tip is approximately 5 cm above the krystal. An enteric tube is in place. The tip overlies the left upper quadrant, likely within the stomach. There is again near complete opacification of the left hemithorax. There is a small right pleural effusion with streaky airspace disease at the right lung base. IMPRESSION: Endotracheal tube and enteric tube in place. Persistent near complete opacification of the left hemithorax. Airspace and pleural disease at the right lung base. SERVICE DATE: 05/24/17 EXAM TYPE: RAD - XRY-PORTABLE CHEST XRAY FINDINGS: Endotracheal tube terminates 4.8 cm above the krystal. Enteric tube extends below diaphragm but the tip is not clearly visualized. The right jugular line extends to the cavoatrial junction region. The lung volumes remain decreased. There is improvement in the left pleural effusion and aeration in the left upper lung. There remains a left pleural effusion and consolidation/volume loss in the left mid and lower lung. Patchy opacity at the right lung base is also unchanged. IMPRESSION: 1. Decreased lung volumes. Improving aeration in the left upper lobe and improvement in the left pleural effusion. Persistent bibasilar opacities and small to moderate left pleural effusion. 2. Support tubes and lines as above. SERVICE DATE: 05/21/17- EXAM TYPE: RAD - XRY-PORTABLE CHEST XRAY FINDINGS: The tip of the endotracheal tube is slightly difficult to visualize, however appears to be located approximately 5 cm proximal to the level of the krystal, in satisfactory position. A right-sided central line is present, the tip is in the distal SVC. An NG tube is visualized which extends below the diaphragms. LUNGS: The lung volumes are low, overall decreased compared to the prior study of 05/20/2017 at 10:03 AM. Increasing density in the bilateral lung bases is noted, the left lung base was incompletely included in the previous study, the degree of density in the left retrocardiac region is probably overall stable compared to the prior study of 05/20/2017 at 6:10 AM. The central pulmonary vasculature is mildly prominent, and unchanged compared to the prior studies and suggestive of pulmonary vascular congestion. IMPRESSION: 1. Lines and tubes in stable position as described in detail above. 2. Decreased lung volumes compared to the most recent prior study, with bibasilar densities are stable, more prominent in the left retrocardiac region. SERVICE DATE: 05/19/17-172 EXAM TYPE: RAD - XRY-PORTABLE CHEST XRAY IMPRESSION: Lines and tubes in place as stated above. Left greater than right bilateral pleural effusions with associated airspace disease. SERVICE DATE: 06/10/17- EXAM TYPE: CAT - CT ABD & PELVIS W/O IV CONTRAS; CT CHEST WO IV CONTRAST FINDINGS: CHEST - TUBES/LINES: The endotracheal tube is 3.7 cm above the krystal. Enteric tube extends through the esophagus and into the proximal stomach. A right arm peripherally inserted catheter terminates at the junction of the superior vena cava and right atrium. LUNGS and PLEURA: Persistent small bilateral pleural effusions layer from the bases to the apices. Interstitial and groundglass opacity in both lungs is compatible with edema, although extensive pneumonitis could have a similar appearance. The pleural effusions produce compressive atelectasis in the dependent aspect of each upper and lower lobe. The left lower lobe is completely collapsed, similar compared to 05/19/2017, and there is chronic, near complete collapse of the lumen of the left mainstem bronchus without endobronchial mucous plugging or extrinsic mass. MEDIASTINUM: Cardiomegaly and moderate atherosclerotic calcification of coronary arteries, most severely affecting the left anterior descending coronary artery. No pericardial effusion. Pulmonary arteries are chronically dilated, suggestive of arterial hypertension. Atherosclerotic thoracic aorta is normal in caliber. The esophagus has normal wall thickness. Thyroid gland is unremarkable. LYMPHATICS: No pathologic sized axillary, hilar or mediastinal lymph nodes. CHEST WALL/BONES: Osteoarthritis of bilateral sternoclavicular joints (left worse than right) and visualized right glenohumeral joint. No acute findings within the degenerated thoracic spine. No aggressive osseous lesions. ABDOMEN AND PELVIS - HEPATOBILIARY: Liver has normal size and attenuation. No evidence of hepatic mass or intrahepatic bile duct dilatation. No radiopaque calculi. The edematous thickening of the gallbladder wall is likely secondary to anasarca. PANCREAS: No focal lesions within the atrophied pancreas. No evidence of pancreatic ductal dilatation. SPLEEN: Spleen measures up to 12.9 cm maximum dimension. No focal splenic lesion. ADRENAL GLANDS: Unremarkable. KIDNEYS, URETERS, BLADDER: Mild bilateral renal cortical atrophy. Mild pelviectasis of the right kidney without evidence of ureterolithiasis or hydroureter; this suggests possibility of a low-grade ureteropelvic junction obstruction. A 1.9 cm hyperdense lesion of the upper pole of the right kidney has attenuation of approximately 60 Hounsfield units, likely a hyperdense cyst. There are likely small cortical cysts of the mid and lower pole the left kidney, suboptimally evaluated due to high level of image noise due to patient's arms positioned in along the sides. Urinary bladder is decompressed by a Faust catheter. GI TRACT AND PERITONEUM: The tip of the enteric tube is in the proximal gastric body. Bowel loops are normal in caliber. Diverticulosis of the descending and sigmoid colon. [id number] amount of ascitic fluid is present within the abdomen and pelvis. ABDOMINAL WALL: Subcutaneous tissue edema of the abdominal wall, flanks, back and thighs. VASCULAR: Atherosclerotic calcification of the abdominal aorta and iliac arteries without aneurysm. LYMPH NODES: No pathologic sized lymph nodes within the abdomen or pelvis. 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 2.5 cm structure of the right adnexa with attenuation of 3 Hounsfield units likely represents an old adnexal cyst rather than cystic change in a pedunculated leiomyoma. OSSEOUS STRUCTURES: Multilevel facet arthropathy and disc degeneration of the lumbar spine. No aggressive osseous lesions. IMPRESSION: 1. Tubes and lines are in satisfactory position. The endotracheal tube is 3.7 cm above the krystal. 2. Cardiomegaly, interstitial edema and small bilateral pleural effusions which remain similar in size compared to 05/19/2017. Groundglass opacity from superimposed pneumonitis cannot be excluded. Left lower lobe remains collapsed. 3. Chronically enlarged pulmonary arteries, suggestive of pulmonary arterial hypertension. 4. Anasarca with body wall edema and [id number] amount of ascitic fluid in the abdomen and pelvis. 5. Colonic diverticulosis without overt evidence for acute diverticulitis. 6. Mild right hydronephrosis could be secondary to a low-grade ureteropelvic junction obstruction; there are no calculi identified within the kidney or ureter. SERVICE DATE: 06/03/17- EXAM TYPE: US - US-UNILATERAL VENOUS DOPPLER FINDINGS: The right internal jugular, subclavian and axillary veins demonstrate normal color Doppler flow suggesting patency. A PICC is visualized within the axillary and subclavian veins. The right brachial and basilic veins are easily compressible and demonstrate normal color Doppler flow suggesting patency. The right cephalic vein is easily compressible suggesting patency. IMPRESSION: No thrombus identified within the veins of the right upper extremity. SERVICE DATE: 05/22/17- EXAM TYPE: US - US-EXT BILAT VENOUS DOPPLER FINDINGS: The visualized bilateral internal jugular, subclavian, axillary, brachial, basilic and cephalic veins show normal flow and compressibility. No deep venous thrombosis is seen. IMPRESSION: No ultrasound evidence of deep venous thrombosis involving the bilateral upper extremities. Examination limited as above. SERVICE DATE: 05/22/17- EXAM TYPE: US - US-UPPER EXT BILAT DOPP ARTER IMPRESSION: 1. Normal peripheral arterial testing without evidence of stenosis or occlusion. However, the study is significantly limited due to the presence of the bandages and lines in the left mid arm and distal. SERVICE DATE: 05/19/17 EXAM TYPE: CAT - CT HEAD WO IV CONTRAST FINDINGS: There is no evidence of acute intracranial hemorrhage or territorial infarction. No abnormal mass effect or midline shift is seen. Castro to white matter differentiation is well preserved. No extra-axial fluid collections are identified. There is atrophy with prominence of the ventricles and the sulci and hypodensity of the periventricular white matter due to chronic small vessel ischemic disease. There is vascular calcifications of the internal carotid arteries bilaterally. The osseous structures and soft tissues are normal. The mastoid air cells and visualized portions of the paranasal sinuses are well aerated. IMPRESSION: No acute intracranial pathology. SERVICE DATE: 05/19/171042 EXAM TYPE: CAT - CTA CHEST-PULMONARY EMBOLISM FINDINGS: QUALITY OF STUDY/CONTRAST BOLUS: There is very good opacification of the pulmonary arteries but there is suboptimal evaluation due to other factors, including body habitus and significant artifact from the right arm at the patient's right side. PULMONARY ARTERIES: Accounting for suboptimal examination for reasons described above, there are no apparent pulmonary emboli in the central and segmental pulmonary artery branches. THORACIC AORTA: No evidence of aneurysm or dissection. LUNG: There is moderate atelectasis or consolidation in the left upper and lower lobes. There is mild right base atelectasis. PLEURA: There are moderate left and [id number] right pleural effusions. MEDIASTINUM: There is cardiomegaly. There is no adenopathy. The thyroid gland is unremarkable. No evidence of septal bowing or right heart strain. CHEST WALL/AXILLA: No axillary or internal mammary lymphadenopathy. OSSEOUS STRUCTURES: No acute or suspicious osseous abnormality. UPPER ABDOMEN: Unremarkable. There is reflux of contrast into the IVC and hepatic veins suggesting elevated right heart pressures. IMPRESSION: 1. Accounting for suboptimal examination for reasons described above, there are no definite pulmonary emboli. 2. Moderate atelectasis or consolidation in the left upper and lower lobes. Mild right base atelectasis. 3. Moderate left and [id number] right pleural effusions. 4. Cardiomegaly. Reflux of contrast into the IVC and hepatic veins suggesting elevated right heart pressures. VTE: Negative SERVICE DATE: 05/19/17- EXAM TYPE: CARD - ECHOCARDIOGRAM FINDINGS Left Ventricle Normal size left ventricle. Normal left ventricular ejection fraction visually estimated at >60%. Normal left ventricular wall motion. Mild concentric left ventricular hypertrophy. Right Ventricle Normal right ventricular size and function. Right Atrium Normal right atrial size. Left Atrium Mild left atrial dilatation. Mitral Valve Mild mitral annular calcification. Mitral valve thickened. Mild mitral regurgitation. Aortic Valve Mildly thickened aortic valve. No aortic stenosis. No aortic regurgitation. Tricuspid Valve Tricuspid valve not well visualized, grossly normal. Mild tricuspid regurgitation. Right ventricular systolic pressure estimated to be elevated at 53 mmHg. Pulmonic Valve Pulmonic valve not well visualized, grossly normal. Trace pulmonic regurgitation. Pericardium No pericardial effusion. Great Vessels Normal size aortic root. CONCLUSIONS Normal size left ventricle. Normal left ventricular ejection fraction visually estimated at > 60%. Mild concentric left ventricular hypertrophy. Mild left atrial dilatation. Mild mitral regurgitation. Mild tricuspid regurgitation. Right ventricular systolic pressure estimated to be elevated at 53 mmHg. Trace pulmonic regurgitation. Disposition Summary Disposition Principal Diagnosis: Acute Hypoxic Respiratory Failure Disseminated intravascular coagulation Additional Diagnosis: Atrial Fibrilliation Immune Thrombocytopenia Diabetes Mellitus Restless Leg Syndrome Discharge Disposition: Discharge Instructions General Discharge Information Code Status: Hospice Patient's Diet: not applicable Patient's Activity: not applicable Follow-Up Instructions/Appts: not applicable Copies To: Kranthi RAMOS,July
--- NOTE | 2017-06-14 00:23 | Event Note ---
Event Note Event Note: At approximately 2019 was alerted by the nurse that the patient was in asystole. The patient was placed on comfort measures will plan to convert to hospice was recently extubated. The patient was assisted bedside. She is in asystole on the monitor. She is nonresponsive to verbal or painful stimuli. Her pupils were fixed and dilated. No heart or breath sounds were auscultated on exam. There are no palpable pulses. Family was at bedside and declined an autopsy. Dr. Endy Keating was made aware, and certificate was completed
== END 2017-06-14 00:33 | disposition expired | DRG 870 ==
LOC: ERH 21:47 → CRI 05-19 00:37 → ERHI 05-19 00:37 → EDBEDREQ 05-19 03:33 → ERHI 05-19 03:52 → ENTRNSPT 05-19 13:31 → EDTRNSPTSTS 05-19 13:37 → EDTRNSPT 05-19 13:37 → ENRESERV 05-19 13:43 → CMPTRNSPT 05-19 13:59 → 1NO 05-19 14:01 → CRI 05-19 16:19
PROVIDERS: Internal Medicine; Internal Medicine Endocrinology, Diabetes & Metabolism; Internal Medicine Infectious Disease; Pediatrics; Student in an Organized Health Care Education/Training Program
PROC: 5A1955Z Respiratory Ventilation, Greater than 96 Consecutive Hours (ICD-10-PCS; principal; 2017-05-19)
PROC: 0BH17EZ Insertion of Endotracheal Airway into Trachea, Via Natural or Artificial Opening (ICD-10-PCS; 2017-05-19)
PROC: 05HY33Z Insertion of Infusion Device into Upper Vein, Percutaneous Approach (ICD-10-PCS; 2017-05-19)
PROC: 30233R1 Transfusion of Nonautologous Platelets into Peripheral Vein, Percutaneous Approach (ICD-10-PCS; 2017-05-22)
PROC: 30243M1 Transfusion of Nonautologous Plasma Cryoprecipitate into Central Vein, Percutaneous Approach (ICD-10-PCS; 2017-05-22)
PROC: 30243N1 Transfusion of Nonautologous Red Blood Cells into Central Vein, Percutaneous Approach (ICD-10-PCS; 2017-05-22)
DX: A41.9 Sepsis, unspecified organism (principal); I21.A1 Myocardial infarction type 2; D65 Disseminated intravascular coagulation [defibrination syndrome]; J96.01 Acute respiratory failure with hypoxia; N17.0 Acute kidney failure with tubular necrosis; R65.21 Severe sepsis with septic shock; J15.212 Pneumonia due to Methicillin resistant Staphylococcus aureus; D61.818 Other pancytopenia; G93.41 Metabolic encephalopathy; I50.23 Acute on chronic systolic (congestive) heart failure; D69.3 Immune thrombocytopenic purpura; I13.0 Hypertensive heart and chronic kidney disease with heart failure and stage 1 through stage 4 chronic kidney disease, or unspecified chronic kidney disease; L03.116 Cellulitis of left lower limb; L03.115 Cellulitis of right lower limb; E87.2 Acidosis; I42.9 Cardiomyopathy, unspecified; E11.22 Type 2 diabetes mellitus with diabetic chronic kidney disease; E11.40 Type 2 diabetes mellitus with diabetic neuropathy, unspecified; N18.3 Chronic kidney disease, stage 3 (moderate); Z79.4 Long term (current) use of insulin; I48.91 Unspecified atrial fibrillation; Z79.01 Long term (current) use of anticoagulants; N14.1 Nephropathy induced by other drugs, medicaments and biological substances; T50.8X5A Adverse effect of diagnostic agents, initial encounter; E86.0 Dehydration; F41.9 Anxiety disorder, unspecified; K21.9 Gastro-esophageal reflux disease without esophagitis; G25.81 Restless legs syndrome; I77.1 Stricture of artery; E78.5 Hyperlipidemia, unspecified; K59.00 Constipation, unspecified; I25.2 Old myocardial infarction; Z95.5 Presence of coronary angioplasty implant and graft; I87.2 Venous insufficiency (chronic) (peripheral); I70.201 Unspecified atherosclerosis of native arteries of extremities, right leg; I25.10 Atherosclerotic heart disease of native coronary artery without angina pectoris; Z87.891 Personal history of nicotine dependence; D64.9 Anemia, unspecified; E11.51 Type 2 diabetes mellitus with diabetic peripheral angiopathy without gangrene
CPT/HCPCS: 84133; 84300; 85397; 87184; CCU; 36415; 71045; 74176; 81001; 82436; 82570; 86920; 87040; 87070; 87071; 87086; 87147; 87449; 87450; 87804; 87804-59; 93005; 93010; 93306; 93970; 94799; 96374; 96375; 99291; C1769; J0131; J0690; J0713; J1100; J1160; J1200; J1720; J1815; J1940; J2270; J2310; J2543; J2920; J2930; J3370; J3490; J7040; J7042; J7608; P9012; P9016; P9031; P9035; P9047